=== PATIENT | female | born 1990 | race Caucasian/White ===

== ENCOUNTER 2016-06-05 19:35 | Emergency (ER) | payer SELFPAY ==
[~2016-06-05] VITALS: Ht 160 cm; Wt 131.5 kg
[~2016-06-05 19:35] MED LIST: AMPH20TA2 PO; AZIT-21 PO; CYCL10TA9 PO; FLC150T PO; GUAI118L10 PO; METH4TAB PO; NAPR500T PO; PRD20T PO; PRED10TA PO; RISP1TAB19 PO; SULF-222 PO; SULF1TAB38 PO
[2016-06-05] MEDS ORDERED: cefTRIAXone 1 GM (ROCEPHIN) VIAL IM ONE (19:45)
[2016-06-05] MEDS ORDERED: DEXAMETHASONE PF 10 MG/ML (DECADRON) VIAL IM ONE (19:45)
[2016-06-05] MEDS ORDERED: LIDOCAINE 1% INJ 20 ML (XYLOCAINE) VIAL INJ ONE (19:45)
[2016-06-05] MEDS ORDERED: D-ME118S33 PO (19:49)
[2016-06-05] MEDS ORDERED: CEPH-507 PO (19:49)
--- NOTE | 2016-06-05 19:50 | ED EENT ---
History of Present Illness General Chief Complaint: Oral/Throat Problems Stated Complaint: SORE THROAT W SWELLING CHILLS COUGH Source: patient Exam Limitations: no limitations History of Present Illness Time seen by provider: 19:47 Initial Comments To ER with a three-day history of nonproductive cough, sore throat, chills, earache, rhinorrhea. Severity: moderate Location: throat Associated Symptoms: cough, No fever Allergies and Home Medications Allergies Coded Allergies: No Known Drug Allergies (Unverified , 04/25/13) Home Medications Cyclobenzaprine HCl 10 Mg Tablet, 10 MG PO Q8H PRN for SPASMS, #10 Ref 0 Prescribed by: MAURA PANTOJA on 04/13/15 2348 Dextroamphetamine/Amphetamine 20 Mg Tablet, 10 MG PO BID, (Reported) Naproxen 500 Mg Tablet, 500 MG PO BID PRN for PAIN, #20 Ref 0 Prescribed by: MAURA PANTOJA on 04/13/15 2348 Prednisone 20 Mg Tab, 40 MG PO DAILY, #8 Ref 0 Prescribed by: MAURA PANTOJA on 04/13/15 2348 Risperidone 1 Mg Tablet, 1 MG PO HS, (Reported) Review of Systems Constitutional: see HPI, chills Eyes: No Symptoms Reported Ears: No Symptoms Reported Nose: see HPI, congestion Mouth: no symptoms reported Throat: see HPI, pain Respiratory: no symptoms reported Cardiovascular: no symptoms reported Past Tsjddor-Jctuzz-Xedzbt Hx Patient Social History Recent Foreign Travel: No Contact w/Someone Who Travel: No Surgeries HX Surgeries: Yes (PILONIDAL CYST) Respiratory Hx Respiratory Disorders: No Cardiovascular Hx Cardiac Disorders: No Neurological Hx Neurological Disorders: No Genitourinary Hx Genitourinary Disorders: No Gastrointestinal Hx Gastrointestinal Disorders: Yes Gastrointestinal Disorders: Gastroesophageal Reflux Musculoskeletal Hx Musculoskeletal Disorders: Yes Musculoskeletal Disorders: Arthritis, Chronic Back Pain Endocrine Hx Endocrine Disorders: No HEENT HX ENT Disorders: No Cancer Hx Cancer: No Psychosocial Hx Psychiatric Problems: Yes Behavioral Health Disorders: Anxiety, Bipolar Integumentary HX Skin/Integumentary Disorder: Yes (HYDROGENITIS SUPRATEVA) Skin/Integumentary Disorders: Eczema Family Medical History Significant Family History: No Pertinent Family Hx Physical Exam General Appearance: WD/WN, no apparent distress Eyes: bilateral eye EOMI, bilateral eye PERRL, bilateral eye normal inspection Ears: bilateral ear TM normal, bilateral ear auricle normal, bilateral ear canal normal Mouth/Throat: normal mouth inspection, tonsillar swelling Neck: lymphadenopathy (R), lymphadenopathy (L) Cardiovascular: regular rate, rhythm, no murmur Respiratory: normal breath sounds, no respiratory distress, no accessory muscle use, No rales, No rhonchi, No wheezing Neurologic/Psychiatric: alert, normal mood/affect, oriented x 3 Skin: normal color, warm/dry Progress/Results/Core Measures Results/Orders My Orders Orders - OLIVA AVILA APRN Ceftriaxone Injection (Rocephin Injectio (06/05/16 19:45) Lidocaine 1% Injection (Xylocaine 1% Inj (06/05/16 19:45) Dexamethasone Pf Injection (Decadron Pf (06/05/16 19:45) Departure Impression Impression: Primary Impression: Bronchitis Disposition: 01 HOME, SELF-CARE Condition: Stable Departure-Patient Inst. Decision time for Depature: 19:48 Referrals: [facility] (PCP/Family) Primary Care Physician Patient Instructions: Acute Bronchitis in Adults Add. Discharge Instructions: 1. Tylenol and Motrin for any fevers, chills or body aches 2. Drink plenty of fluids to stay hydrated 3. Antibiotics and cough medication as directed All discharge instructions reviewed with patient and/or family. Voiced understanding. Scripts Cephalexin (Keflex) 500 Mg Capsule 500 MG PO Q6H, #28 CAP Prov: OLIVA AVILA APRN 06/05/16 D-Methorphan Hb/P-Epd HCl/Bpm (Bromfed Dm Cough Syrup) 118 Ml Syrup 5 ML PO Q6H Y for COUGH, #120 ML Prov: OLIVA AVILA APRN 06/05/16 OLIVA AVILA APRN Jun 05, 2016 19:49
[2016-06-05 20:21] VITALS: BP 135/90
== END 2016-06-05 20:21 | disposition home or self-care (01) ==
LOC: EDUNIT# 19:35 → ER 19:39
DX: J40 Bronchitis, not specified as acute or chronic (principal)
CPT/HCPCS: 96372; 99282

== ENCOUNTER 2016-09-24 13:24 | Emergency (ER) | payer SELFPAY ==
[~2016-09-24] VITALS: Ht 160 cm; Wt 131.5 kg
[~2016-09-24 13:24] MED LIST changes: +CEPH-507 PO; +D-ME118S33 PO
--- OUTSIDE RECORDS SUMMARY | 2016-09-24 13:31 | XMS REPORT | Clinical Summary ---
Author Author [facility] Organization [facility] Address Unknown Phone Unavailable Care Team Providers Care Surg Nurse Name Role Phone PCP Unavailable Source Comments Some departments are not documenting in the electronic medical record. If you do not see the information that you expected, contact Release of Information in the Health Information Management department at [phone] for further assistance in locating additional records.[facility] Allergies No Known Allergies Current Medications Prescription Sig. Disp. Refills Start End Date Status Date metFORMIN-XR(+) 01/22/20 Active (GLUCOPHAGE XR) 500 mg 16 extended release tablet traZODone (DESYREL) 100 01/11/20 Active mg tablet 16 dextroamphetamine-ampheta 01/18/20 Active mine (ADDERALL) 20 mg [address] Take 1 Tab by mouth twice 60 Tab 3 03/02/19 Active (VOLTAREN) 75 mg tablet daily. Take with food. 17 Active Problems Problem Noted Date Synovial cyst of lumbar facet joint 03/04/2016 Chronic bilateral low back pain with bilateral sciatica 03/04/2016 Herniated nucleus pulposus, L4-5 03/04/2016 Family History Medical History Relation Name Comments Heart problem Father Arthritis Mother Back pain Mother Diabetes Mother Hypertension Mother Relation Name Status Comments Father Alive Mother Alive Social History Tobacco Use Types Packs/Day Years Used Date Former Smoker Quit: 01/06/2016 Alcohol Use Drinks/Week oz/Week Comments No 0 Standard 0.0 drinks or equivalent Sex Assigned at Date Recorded Not on file Last Filed Vital Signs Vital Sign Reading Time Taken Blood Pressure 135/70 03/02/2016 1:58 PM STAMPING DIE MAKER BENCH Pulse 104 03/02/2016 1:58 PM STAMPING DIE MAKER BENCH Temperature - - Respiratory Rate - - Oxygen Saturation - - Inhaled Oxygen - - Concentration Weight 120.2 kg (265 lb) 03/02/2016 1:58 PM STAMPING DIE MAKER BENCH Height 162.6 cm (5' 4") 03/02/2016 1:58 PM STAMPING DIE MAKER BENCH Body Mass Index 45.49 03/02/2016 1:58 PM STAMPING DIE MAKER BENCH Plan of Treatment Health Maintenance Due Date Last Done Comments PHYSICAL (COMPREHENSIVE) 1997 EXAM HPV VACCINES (#1) 2001 PERTUSSIS VACCINE 2001 TETANUS VACCINE 05/14/2007 CERVICAL CANCER SCREENING 05/14/2011 INFLUENZA VACCINE 10/14/2016 Results Not on filefrom Last 3 Months
[2016-09-24] MEDS ORDERED: LIDOCAINE 1% INJ 20 ML (XYLOCAINE) VIAL INJ STA (13:48)
[2016-09-24] MEDS ORDERED: RX-MUPIROCIN (BACTROBAN) 2% OINT 22 GM TUBE TOP STA (13:52)
--- NOTE | 2016-09-24 13:52 | ED Integumentary General ---
General Chief Complaint: Allergic Reaction Stated Complaint: POSS ALLERGIC REACTION HIVES/ITCHING Nursing Triage Note: PT C/O GIVES TO ARMS/LEGS ONSET LAST NIGHT. PT THINKS IT COULD POSSIBLE BE CAUSED BY NEW LAUNDRY SOAP Source: patient Exam Limitations: no limitations History of Present Illness Time seen by provider: 13:43 Initial Comments Here with complaint of hives that started last night worse today. 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 Reports that she is proximally 9 weeks . Also has a complaint of abscess wound to the abdomen just above the pubis area at midline. Reports that she has hidradenitis suppurativa. Reports that this wound has been going on for a little while and she was unable to pop it. States that she's been on a variety of antibiotics and those don't work and the only thing that works is drainage. Denies breathing problems or other concerns. Timing/Duration: yesterday Severity: moderate Location: torso Possible Cause: exposure to allergen Associated Symptoms: change in skin texture, hives, swelling/mass/lumps Allergies and Home Medications Allergies Coded Allergies: No Known Drug Allergies (Unverified , 04/25/13) Home Medications Cephalexin 500 Mg Capsule, 500 MG PO Q6H, #28 Prescribed by: OLIVA AVILA on 06/05/161948 Cyclobenzaprine HCl 10 Mg Tablet, 10 MG PO Q8H PRN for SPASMS, #10 Ref 0 Prescribed by: MAURA PANTOJA on 04/13/152347 D-Methorphan Hb/P-Epd HCl/Bpm 118 Ml Syrup, 5 ML PO Q6H PRN for COUGH, #120 Prescribed by: OLIVA AVILA on 06/05/161948 Dextroamphetamine/Amphetamine 20 Mg Tablet, 10 MG PO BID, (Reported) Naproxen 500 Mg Tablet, 500 MG PO BID PRN for PAIN, #20 Ref 0 Prescribed by: MAURA PANTOJA on 04/13/152347 Prednisone 20 Mg Tab, 40 MG PO DAILY, #8 Ref 0 Prescribed by: MAURA PANTOJA on 04/13/152347 Risperidone 1 Mg Tablet, 1 MG PO HS, (Reported) Constitutional: see HPI, No chills, No fever Respiratory: no symptoms reported Cardiovascular: no symptoms reported Gastrointestinal: no symptoms reported : Yes Skin: see HPI, lesions, pruritus, rash Psychiatric/Neurological: No Symptoms Reported Past Ynwohui-Ydqxdj-Yvdjaa Hx Patient Social History Alcohol Use: Denies Use Recreational Drug Use: No Smoking Status: Former Smoker Type Used: Cigarettes 2nd Hand Smoke Exposure: Yes Recent Foreign Travel: No Contact w/Someone Who Travel: No Recent Infectious Disease Expo: No Recent Hopitalizations: No Immunizations Up To Date Tetanus Booster (TDap): Less than 5yrs Seasonal Allergies Seasonal Allergies: No Surgeries HX Surgeries: Yes (PILONIDAL CYST) Respiratory Hx Respiratory Disorders: No Cardiovascular Hx Cardiac Disorders: No Neurological Hx Neurological Disorders: No Reproductive System : Yes Genitourinary Hx Genitourinary Disorders: No Gastrointestinal Hx Gastrointestinal Disorders: Yes Gastrointestinal Disorders: Gastroesophageal Reflux Musculoskeletal Hx Musculoskeletal Disorders: Yes Musculoskeletal Disorders: Arthritis, Chronic Back Pain Endocrine Hx Endocrine Disorders: No HEENT HX ENT Disorders: No Cancer Hx Cancer: No Psychosocial Hx Psychiatric Problems: Yes Behavioral Health Disorders: Anxiety, Bipolar Integumentary HX Skin/Integumentary Disorder: Yes (HYDROGENITIS SUPRATEVA) Skin/Integumentary Disorders: Eczema Reviewed Nursing Assessment Reviewed/Agree w Nursing PMH: Yes Family Medical History Significant Family History: No Pertinent Family Hx Physical Exam Vital Signs Vital Sign - Last 12Hours 09/24/16 13:35 Temp 98.0 Pulse 112 Resp 20 B/P (MAP) 126/114 Pulse Ox 94 O2 Delivery Room Air Capillary Refill : Less Than 3 Seconds General Appearance: WD/WN, no apparent distress, obese Cardiovascular: regular rate, rhythm, no murmur Respiratory: lungs clear, normal breath sounds Gastrointestinal: non tender, soft Skin: warm/dry, rash (hives noted to the area of the torso and trunk especially at the shoulders and waistline.), other (multiple scars on the scan especially at the area of the skin folds of the pannus and axilla. The central pannus area in the suprapubic region has a small abscess of approximately 1 x 2 cm with central fluctuance and some surrounding erythema.) Skin Problem Character: abscess, erythema I&D : Site: suprapubic Blade Size: 11 I & D Procedure: betadine prep, Wound Packing Packing/Drain: Plain Packing 1/2 Progress Moderate amount of purulent drainage obtained from wound after incision. Wound culture obtained. Loculations broken with Elaine's. Packed with half-inch plain. Cover with dressing. Tolerated procedure well with no complications. Progress/Results/Core Measures Results/Orders My Orders Orders - TONYA AMARAL MD Diphenhydramine Tablet (Benadryl Tablet) (09/24/16 14:00) Lidocaine 1% Injection (Xylocaine 1% Inj (09/24/16 13:48) Rx-Mupirocin 2% Oint (Rx-Bactroban) (09/24/16 13:52) Wound Culture (09/24/16 14:58) Medications Given in ED Current Medications Medications Dose Ordered Sig/Terell Route Start Time Stop Time Status Last Admin Dose Admin Diphenhydramine HCl 50 mg ONCE ONCE PO 09/24/16 14:00 09/24/16 14:01 DC 09/24/16 13:52 50 MG Vital Signs/I&O Vital Sign - Last 12Hours 09/24/16 13:35 Temp 98.0 Pulse 112 Resp 20 B/P (MAP) 126/114 Pulse Ox 94 O2 Delivery Room Air Blood Pressure Mean: 118 Progress Note : Progress Note Seen and evaluated. Benadryl 50 mg by mouth. I&D wound on central lower pannus area at suprapubic region. Wound culture sent. Improved after Benadryl. Discharged home with return precautions. Patient verbalize understanding instructions and agreement with plan. Antibiotic ointment and dressing placed over wound. No antibiotics do to history of . We will await cultures as indicated. Departure Impression Impression: Primary Impression: Acute urticaria Additional Impression: Abscess Disposition: 01 HOME, SELF-CARE Condition: Improved Departure-Patient Inst. Decision time for Depature: 15:02 Referrals: [facility] (PCP/Family) Primary Care Physician Patient Instructions: Abscess Incision and Drainage (DC), Skin Rash (DC) Add. Discharge Instructions: All discharge instructions reviewed with patient and/or family. Voiced understanding. Keep packing in place for 2 days and then return to have it removed or you may remove at home. Follow up with your DrJacqueline in a few days for recheck. Return for worse pain, swelling, redness, weakness, breathing problems, fever or other concerns as needed. You should use the antibiotic ointment and dressing over wound or similar wounds as instructed. You may take Benadryl 25 mg every 6 hours as needed for itching. TONYA AMARAL MD Sep 24, 2016 13:52
[2016-09-24] MEDS ORDERED: diphenhydrAMINE 25 MG TAB (BENADRYL) PO ONE (14:00)
[2016-09-24 15:09] VITALS: BP 126/114
== END 2016-09-24 15:09 | disposition home or self-care (01) ==
LOC: EDUNIT# 13:24 → ER 13:27
DX: L50.9 Urticaria, unspecified (principal); L02.211 Cutaneous abscess of abdominal wall; K21.9 Gastro-esophageal reflux disease without esophagitis; M19.90 Unspecified osteoarthritis, unspecified site; F41.9 Anxiety disorder, unspecified; F31.9 Bipolar disorder, unspecified; Z87.891 Personal history of nicotine dependence
CPT/HCPCS: 87070; 87205

== ENCOUNTER 2016-09-26 08:00 | Emergency (ER) | payer SELFPAY ==
[~2016-09-26] VITALS: Ht 160 cm; Wt 131.5 kg
--- OUTSIDE RECORDS SUMMARY | 2016-09-26 08:07 | XMS REPORT | Clinical Summary ---
Author Author [facility] Organization [facility] Address Unknown Phone Unavailable Care Team Providers Care Plant Propagator Name Role Phone PCP Unavailable Source Comments Some departments are not documenting in the electronic medical record. If you do not see the information that you expected, contact Release of Information in the Health Information Management department at [phone] for further assistance in locating additional records.[facility] Allergies No Known Allergies Current Medications [...] Taken Blood Pressure 135/70 03/02/2016 1:58 PM BLISTER PACKAGING MACHINE OPERATOR Pulse 104 03/02/2016 1:58 PM BLISTER PACKAGING MACHINE OPERATOR Temperature - - Respiratory Rate - - Oxygen Saturation - - Inhaled Oxygen - - Concentration Weight 120.2 kg (265 lb) 03/02/2016 1:58 PM BLISTER PACKAGING MACHINE OPERATOR Height 162.6 cm (5' 4") 03/02/2016 1:58 PM BLISTER PACKAGING MACHINE OPERATOR Body Mass Index 45.49 03/02/2016 1:58 PM BLISTER PACKAGING MACHINE OPERATOR Plan of Treatment Health Maintenance Due Date Last Done Comments PHYSICAL (COMPREHENSIVE) 1997 EXAM HPV VACCINES (#1) 2001 PERTUSSIS VACCINE 2001 TETANUS VACCINE 05/14/2007 CERVICAL CANCER SCREENING 05/14/2011 INFLUENZA VACCINE 10/14/2016 Results Not on filefrom Last 3 Months
[2016-09-26] MEDS ORDERED: FAMO-119 PO (08:18)
[2016-09-26] MEDS ORDERED: PRD10T PO (08:20)
--- NOTE | 2016-09-26 08:20 | ED Integumentary General ---
General Chief Complaint: Allergic Reaction Stated Complaint: ALLERGIC REACTION Nursing Triage Note: AMBULATED TO [place] [id number] WITH COMPLAINTS OF HIVES STARTING MONDAY. WAS SEEN HERE SAT AND HAS BEEN TAKING BENADRYL AND PEPCID. LAST DOSE OF BENADRYL AT 2200 LAST NOC. STATES SHE IS APPX 9 WEEKS GESTATION. Source: patient History of Present Illness Time seen by provider: 08:07 Initial Comments PT STATES SHE HAS HAD HIVES SINCE MONDAY EVENING SEEN IN ER ON MONDAY FOR HIVES, BUT ALSO HAD ABSCESS ON LOWER ABDOMEN THAT WAS I&D'D NO ANTIBIOTICS PT STATES HIVES ARE WORSE TODAY, AND ARE NOW ON HANDS AND FACE AND HANDS ARE SWOLLEN TODAY NO SWELLING OF TONGUE OR THROAT, NO SHORTNESS OF BREATH OR WHEEZING OR DIFFICULTY SWALLOWING. NO HISTORY OF SIMILAR PT DENIES ANY NEW FOODS, PRODUCTS, MEDICATIONS OR EXPOSURES HAD BENADRYL 50 MG AT 2200 LAST PM PT IS 7-9 WEEKS LMP 08/01/16 PT HAS BEEN ON TUMS AND GUMMY VITAMINS FOR A FEW WEEKS HAS FIRST OB APPOINTMENT TOMORROW AT [facility] PCP: [facility] Allergies and Home Medications Allergies Coded Allergies: No Known Drug Allergies (Unverified , 04/25/13) Home Medications Dextroamphetamine/Amphetamine 20 Mg Tablet, 10 MG PO BID, (Reported) Famotidine 20 Mg Tablet, 20 MG PO, (Reported) Prednisone 10 Mg Tab, 40 MG PO DAILY, #12 Prescribed by: KIMMIE BANKS on 09/26/16 0820 Constitutional: no symptoms reported EENTM: no symptoms reported Respiratory: no symptoms reported Cardiovascular: no symptoms reported Gastrointestinal: no symptoms reported Genitourinary: no symptoms reported : Yes LMP: Aug 01, 2016 Musculoskeletal: no symptoms reported Skin: see HPI Psychiatric/Neurological: No Symptoms Reported Endocrine: No Symptoms Reported Hematologic/Lymphatic: No Symptoms Reported Past Iafntxa-Wsufll-Iuwquh Hx Patient Social History Alcohol Use: Denies Use Recreational Drug Use: No Smoking Status: Former Smoker Type Used: Cigarettes 2nd Hand Smoke Exposure: Yes Recent Foreign Travel: No Contact w/Someone Who Travel: No Recent Infectious Disease Expo: No Recent Hopitalizations: Yes Immunizations Up To Date Tetanus Booster (TDap): Less than 5yrs Seasonal Allergies Seasonal Allergies: No Surgeries HX Surgeries: Yes (PILONIDAL CYST; ABSCESS I&D'S) Respiratory Hx Respiratory Disorders: No Cardiovascular Hx Cardiac Disorders: No Neurological Hx Neurological Disorders: No Reproductive System : Yes Female Reproductive Disorders: Denies Genitourinary Hx Genitourinary Disorders: No Gastrointestinal Hx Gastrointestinal Disorders: Yes Gastrointestinal Disorders: Gastroesophageal Reflux Musculoskeletal Hx Musculoskeletal Disorders: Yes Musculoskeletal Disorders: Arthritis, Chronic Back Pain Endocrine Hx Endocrine Disorders: No HEENT HX ENT Disorders: No Cancer Hx Cancer: No Psychosocial Hx Psychiatric Problems: Yes Behavioral Health Disorders: Anxiety, Bipolar Integumentary HX Skin/Integumentary Disorder: Yes (HYDRADENITIS SUPPURATIVA/ MULTIPLE ABSCESSES) Skin/Integumentary Disorders: Eczema Physical Exam Vital Signs Vital Sign - Last 12Hours 09/26/16 08:08 Temp 98.0 Pulse 115 Resp 18 B/P (MAP) 138/82 Pulse Ox 97 Capillary Refill : Less Than 3 Seconds General Appearance: WD/WN, no apparent distress, obese HEENT: PERRL/EOMI, normal ENT inspection, pharynx normal, other (SLIGHT SWELLING TO LOWER LIP, BUT NO INTRA-ORAL SWELLING) Neck: non-tender, full range of motion, supple Cardiovascular: regular rate, rhythm, no murmur Respiratory: normal breath sounds, no respiratory distress, no accessory muscle use Gastrointestinal: non tender, soft Extremities: other (MILD SWELLING TO HANDS, BUT NO SWELLING TO FEET) Neurologic/Psychiatric: salesperson men's furnishings II-XII nml as tested, no motor/sensory deficits, alert, normal mood/affect, oriented x 3 Skin: normal color, warm/dry, rash (DIFFUSE HIVES, INCLUDING PALMS AND SCALP AND FACE. SOLES SPARED. SLIGHT SWELLING TO LOWER LIP AND HANDS. NO SWELLING TO FEET) Progress/Results/Core Measures Results/Orders My Orders Orders - KIMMIE BANKS DO Methylprednisolone Sod Succ (Solu-Medrol (09/26/16 08:30) Vital Signs/I&O Vital Sign - Last 12Hours 09/26/16 08:08 Temp 98.0 Pulse 115 Resp 18 B/P (MAP) 138/82 Pulse Ox 97 Blood Pressure Mean: 100 Departure Impression Impression: Primary Impression: Urticaria of unknown origin Disposition: 01 HOME, SELF-CARE Condition: Stable Departure-Patient Inst. Referrals: [facility] (PCP/Family) Primary Care Physician Patient Instructions: Hives (DC) Add. Discharge Instructions: NO NEW FOODS, MEDICATIONS, PRODUCTS, ETC. BENADRYL 50 MG EVERY 4 HOURS NEEDED FOR RASH AND ITCHING KEEP YOUR APPOINTMENT TOMORROW AT [facility] All discharge instructions reviewed with patient and/or family. Voiced understanding. Scripts Prednisone (Prednisone) 10 Mg Tab 40 MG PO DAILY, #12 TAB Prov: KIMMIE BANKS DO 09/26/16 KIMMIE BANKS DO Sep 26, 2016 08:20
[2016-09-26 08:27] VITALS: BP 138/82
[2016-09-26] MEDS ORDERED: methylPREDNISolone 125 MG (Solu-MEDROL) VIAL IM ONE (08:30)
== END 2016-09-26 08:27 | disposition home or self-care (01) ==
LOC: EDUNIT# 08:00 → ER 08:03
DX: O99.72 Diseases of the skin and subcutaneous tissue complicating childbirth (principal); L50.9 Urticaria, unspecified; O99.611 Diseases of the digestive system complicating pregnancy, first trimester; K21.9 Gastro-esophageal reflux disease without esophagitis; O99.89 Other specified diseases and conditions complicating pregnancy, childbirth and the puerperium; M19.90 Unspecified osteoarthritis, unspecified site; O99.341 Other mental disorders complicating pregnancy, first trimester; F41.9 Anxiety disorder, unspecified; F31.9 Bipolar disorder, unspecified; Z3A.09 9 weeks gestation of pregnancy; Z87.891 Personal history of nicotine dependence
CPT/HCPCS: 96372; 99284

== ENCOUNTER → 2016-10-10 | Outpatient (CLI) | payer MEDICAID ==
[~2016-10-10] MED LIST changes: +FAMO-119 PO; +PRD10T PO
--- NOTE | 2016-10-10 13:27 | Diagnostic Imaging Report ---
PROCEDURE: US OB SINGLE FETUS <14 WKS. TECHNIQUE: Multiple real-time grayscale images were obtained over the gravid uterus in various projections. INDICATION: Size and dates. FINDINGS: There is a single living intrauterine . Waldron-rump length is 2.3 cm. This correlates with gestational age of 9 weeks 1 day. The heart rate is 156 beats per minute. Cervical length is 2.37 cm. Neither ovary was visualized. IMPRESSION: Single living intrauterine with sonographically estimated gestational age of 9 weeks 1 day and estimated date of confinement of 05/14/2017. Dictated by: Dictated on workstation # [id number]
== END ==
LOC: RAD 09:44
PROVIDERS: ATTEND Family Medicine
DX: Z36 Encounter for antenatal screening of mother (principal); Z3A.09 9 weeks gestation of pregnancy
CPT/HCPCS: 76801

== ENCOUNTER 2016-11-27 23:10 | Emergency (ER) | payer MEDICAID ==
[~2016-11-27] VITALS: Ht 162.6 cm; Wt 133.4 kg
--- OUTSIDE RECORDS SUMMARY | 2016-11-27 23:18 | XMS REPORT ---
Author Author RAI Harper Organization [facility] Address Unknown Care Team Providers Care Automatic Furnace Operator Name Role Phone RAI Harper Unavailable PROBLEMS Type Condition ICD9-CM Code LKL33-AF Code Onset Dates Condition Status SNOMED Code Problem Elevated fasting glucose R73.01 Active 422791969 Problem Lumbago with sciatica, left side M54.42 Active 870791119 Problem Hypertriglyceridemia E78.1 Active 663541551 Problem Obesity affecting in first trimester O99.211 Active 582931588773 Problem Metabolic syndrome E88.81 Active 586223168 Problem Other chronic pain G89.29 Active 55261576 Problem Lumbago with sciatica, right side M54.41 Active 132477915 Problem Attention deficit hyperactivity disorder F90.9 Active 679502299 Problem Suppurative hidradenitis L73.2 Active 37352688 Problem Bipolar disorder, unspecified F31.9 Active 34604936 Problem BMI 40.0-44.9, adult Z68.41 Active 693474229 Problem Irregular menses N92.6 Active 50289227 Problem Anxiety disorder, unspecified F41.9 Active 832741221 Problem Oral contraceptive pill surveillance Z30.41 Active [id number] ALLERGIES No Information SOCIAL HISTORY Never Assessed PLAN OF CARE VITAL SIGNS MEDICATIONS Medication Instructions Dosage Frequency Start Date End Date Duration Status Adderall 20 mg Orally twice a day 1 tablet 12h Apr, 28 days Active RESULTS No Results PROCEDURES No Known procedures IMMUNIZATIONS No Known Immunizations MEDICAL (GENERAL) HISTORY Type Description Date Medical History Hidradenitis Supprativa Medical History Bipolar Disorder Medical History ADHD Surgical History pilonidal cyst removal tailbone Hospitalization History Dehydration & concussion 07/23/2016
--- OUTSIDE RECORDS SUMMARY | 2016-11-27 23:18 | XMS REPORT | Clinical Summary ---
Author Author [facility] Organization [facility] Address Unknown Phone Unavailable Care Team Providers Care Dye Automation Operator Name Role Phone PCP Unavailable Source Comments Some departments are not documenting in the electronic medical record. If you do not see the information that you expected, contact Release of Information in the Health Information Management department at [phone] for further assistance in locating additional records.[facility] Allergies No Known Allergies Current Medications [...] Taken Blood Pressure 135/70 03/02/2016 1:58 PM MARKETING REGIONAL CONSULTANT Pulse 104 03/02/2016 1:58 PM MARKETING REGIONAL CONSULTANT Temperature - - Respiratory Rate - - Oxygen Saturation - - Inhaled Oxygen - - Concentration Weight 120.2 kg (265 lb) 03/02/2016 1:58 PM MARKETING REGIONAL CONSULTANT Height 162.6 cm (5' 4") 03/02/2016 1:58 PM MARKETING REGIONAL CONSULTANT Body Mass Index 45.49 03/02/2016 1:58 PM MARKETING REGIONAL CONSULTANT Plan of Treatment Health Maintenance Due Date Last Done Comments PHYSICAL (COMPREHENSIVE) 1997 EXAM HPV VACCINES (1 of 3 - 2001 Female 3 Dose Series) PERTUSSIS VACCINE 2001 TETANUS VACCINE 05/14/2007 CERVICAL CANCER SCREENING 05/14/2011 INFLUENZA VACCINE 09/13/2016 Results Not on filefrom Last 3 Months
--- OUTSIDE RECORDS SUMMARY | 2016-11-27 23:18 | XMS REPORT ---
Author Author RAI DE JESUS [facility] Address Unknown Care Team Providers Care Hunting Sales Associate Name Role Phone LIZARAI Unavailable PROBLEMS Type Condition ICD9-CM Code [id number] Code Onset Dates Condition Status SNOMED Code Problem Oral contraceptive pill surveillance Z30.41 Active 619970393965001 Problem Hypertriglyceridemia E78.1 Active 432340763 Problem Elevated fasting glucose R73.01 Active 472500396 Problem Anxiety disorder, unspecified F41.9 Active 721279729 Problem Bipolar disorder, unspecified F31.9 Active 20203453 Problem BMI 40.0-44.9, adult Z68.41 Active 899372501 Problem Irregular menses N92.6 Active 16986970 Problem Metabolic syndrome E88.81 Active 240607425 Problem Attention deficit hyperactivity disorder F90.9 Active 979416456 Problem Lumbago with sciatica, right side M54.41 Active 405576926 Problem Lumbago with sciatica, left side M54.42 Active 825273028 Problem Suppurative hidradenitis L73.2 Active 39573076 Problem Other chronic pain G89.29 Active 25179293 ALLERGIES Substance Reaction Event Type Date Status Bees anaphylaxis Non Drug Allergy Feb, Active SOCIAL HISTORY No smoking Hx information available PLAN OF CARE Activity Details Follow Up 3 Months Reason: VITAL SIGNS Height 64 in 2016-02-17 Weight 274.9 lbs 2016-02-17 Heart Rate 92 bpm 2016-02-17 Respiratory Rate 20 2016-02-17 BMI 47.18 kg/m2 2016-02-17 Blood pressure systolic 104 mmHg 2016-02-17 Blood pressure diastolic 78 mmHg 2016-02-17 MEDICATIONS Medication Instructions Dosage Frequency Start Date End Date Duration Status Adderall 20 MG Orally twice a day 1 tablet 12h Feb, 30 days Active Trazodone HCl 100 MG Orally voucher Once a day 1 tablet at bedtime 24h Dec, 30 days Active Trileptal 300 MG Orally twice a day 1 tablet 12h Dec, Active MetFORMIN HCl ER 500 MG Orally Once a day 1 tablet with evening meal 24h Jan, 30 day(s) Active RESULTS No Results PROCEDURES Procedure Date Ordered Related Diagnosis Body Site Office Visit, Est Pt., Level 3 Feb 17, 2016 IMMUNIZATIONS No Known Immunizations
--- OUTSIDE RECORDS SUMMARY | 2016-11-27 23:19 | XMS REPORT ---
Author Author VIVIAN GASTON Organization [facility] Address [address] [place] [address] Care Team Providers Care Legal Document Specialist Name Role Phone GASTONVIVIAN Austin Unavailable PROBLEMS Type Condition ICD9-CM Code [id number] Code Onset Dates Condition Status SNOMED Code Problem Elevated fasting glucose R73.01 Active 110634150 Problem Lumbago with sciatica, left side M54.42 Active 565630078 Problem Hypertriglyceridemia E78.1 Active 154261203 Problem Obesity affecting in first trimester O99.211 Active 216827852282 Problem Metabolic syndrome E88.81 Active 618264658 Problem Other chronic pain G89.29 Active 94805376 Problem Lumbago with sciatica, right side M54.41 Active 451316589 Problem Attention deficit hyperactivity disorder F90.9 Active 917412035 Problem Suppurative hidradenitis L73.2 Active 24226545 Problem Bipolar disorder, unspecified F31.9 Active 80254166 Problem BMI 40.0-44.9, adult Z68.41 Active 594482543 Problem Irregular menses N92.6 Active 15410355 Problem Anxiety disorder, unspecified F41.9 Active 105274408 Problem Oral contraceptive pill surveillance Z30.41 Active 697080950492291 ALLERGIES Substance Reaction Event Type Date Status Bees anaphylaxis Non Drug Allergy Mar, Active SOCIAL HISTORY Never Assessed PLAN OF CARE Activity Details Follow Up prn Reason: VITAL SIGNS Height 64 in 2016-03-29 Weight 279.0 lbs 2016-03-29 Temperature 97.8 degrees Fahrenheit 2016-03-29 Heart Rate 86 bpm 2016-03-29 Respiratory Rate 18 2016-03-29 BMI 47.89 kg/m2 2016-03-29 Blood pressure systolic 110 mmHg 2016-03-29 Blood pressure diastolic 76 mmHg 2016-03-29 MEDICATIONS Medication Instructions Dosage Frequency Start Date End Date Duration Status Trazodone HCl 100 MG Orally voucher Once a day 1 tablet at bedtime 24h Dec, 30 days Active Trileptal 300 MG Orally twice a day 1 tablet 12h Dec, Active Clindamycin HCl 300 MG Orally every 8 hrs 1 capsule 8h 14 Mar, 2016Mar 5 day(s) Active Adderall 20 mg Orally twice a day 1 tablet 12h 08 Mar, 2016 28 days Active MetFORMIN HCl ER 500 MG Orally Once a day 1 tablet with evening meal 24h Jan, 30 day(s) Active RESULTS Name Result Date Reference Range CULTURE, ANAEROBIC AND AEROBIC 2016-03-29 Anaerobic Culture Final report Aerobic Culture Final report Result 1 Result 1 Mixed skin sunshine GC/CHLAM URINE (STATE) 2016-03-29 CHLAMYDIA negative GC negative HEP C ANTIBODY (STATE) 2016-03-29 RESULTS SYPHILIS (STATE) 2016-03-29 HIV (STATE) 2016-03-29 HEP B SURFACE ANTIGEN (STATE) 2016-03-29 HEP B ANTIBODY non reactive HEP B ANTIBODY (RML) HEP B ANTIBODY (STATE) PROCEDURES Procedure Date Ordered Result Body Site I & D SIMPLE ABSCESS 2016-03-29 N/A No Charge Mar 29, 2016 DRAINAGE OF SKIN ABSCESS Mar 29, 2016 CULTURE, BACTERIA, OTHER Mar 29, 2016 CULTURE BACTERIA ANAEROBIC Mar 29, 2016 VENIPUNCT, ROUTINE* Mar 29, 2016 IMMUNIZATIONS No Known Immunizations MEDICAL (GENERAL) HISTORY Type Description Date Medical History Hidradenitis Supprativa Medical History Bipolar Disorder Medical History ADHD Surgical History pilonidal cyst removal tailbone Hospitalization History Dehydration & concussion 07/23/2016
--- OUTSIDE RECORDS SUMMARY | 2016-11-27 23:19 | XMS REPORT ---
Author Author RAI Harper Organization [facility] Address Unknown Care Team Providers Care Finisher Merchant Products Name Role Phone RAI Harper Unavailable PROBLEMS Type Condition ICD9-CM Code [id number] Code Onset Dates Condition Status SNOMED Code Problem Elevated fasting glucose R73.01 Active 106902741 Problem Lumbago with sciatica, left side M54.42 Active 445804851 Problem Hypertriglyceridemia E78.1 Active 894357233 Problem Obesity affecting in first trimester O99.211 Active 829067354991 Problem Metabolic syndrome E88.81 Active 434262209 Problem Other chronic pain G89.29 Active 13046693 Problem Lumbago with sciatica, right side M54.41 Active 688067276 Problem Attention deficit hyperactivity disorder F90.9 Active 731614395 Problem Suppurative hidradenitis L73.2 Active 85308890 Problem Bipolar disorder, unspecified F31.9 Active 36355089 Problem BMI 40.0-44.9, adult Z68.41 Active 600366312 Problem Irregular menses N92.6 Active 99278429 Problem Anxiety disorder, unspecified F41.9 Active 758438405 Problem Oral contraceptive pill surveillance Z30.41 Active 766619271889685 ALLERGIES Unknown Allergies SOCIAL HISTORY No smoking Hx information available PLAN OF CARE VITAL SIGNS MEDICATIONS Medication Instructions Dosage Frequency Start Date End Date Duration Status Adderall 20 mg Orally twice a day 1 tablet 12h 08 Mar, 2016 28 days Active RESULTS No Results PROCEDURES No Known procedures IMMUNIZATIONS No Known Immunizations
--- NOTE | 2016-11-27 23:33 | ED Cough/URI ---
General Chief Complaint: Cough/Cold/Flu Symptoms Stated Complaint: VOMITNG COUGH SKIN FEELS HOT CHILLS 16 WK PG Nursing Triage Note: states since monday had runny nose, congestion, states last night cough with vomitting and headache. Source: patient History of Present Illness Time seen by provider: 23:15 Initial Comments C/O COLD SYMPTOMS SINCE Monday11/25/16 C/O CLEAR TO GREEN NASAL DRAINAGE C/O COUGH WITH VOMITING SECONDARY TO GAGGING WITH COUGHING NO FEVER C/O HEADACHE FROM COUGHING NO CHEST PAIN OR SHORTNESS OF BREATH NO KNOWN SICK CONTACTS PT STATES SHE IS 16 WEEKS --HAS NOT TAKEN ANYTHING FOR SYMPTOMS HAS NOT HAD A FLU SHOT YET PCP: DR. HUNT/[facility] Allergies and Home Medications Allergies Coded Allergies: No Known Drug Allergies (Unverified , 04/25/13) Home Medications Dextroamphetamine/Amphetamine 20 Mg Tablet, 10 MG PO BID, (Reported) Famotidine 20 Mg Tablet, 20 MG PO, (Reported) Prednisone 10 Mg Tab, 40 MG PO DAILY, #12 Prescribed by: KIMMIE BANKS on 09/26/16 0820 Constitutional: no symptoms reported EENTM: see HPI, nose congestion, No ear pain, No throat pain Respiratory: see HPI, cough Cardiovascular: no symptoms reported Gastrointestinal: see HPI, No abdominal pain, No nausea, vomiting (SECONDARY TO COUGH) Genitourinary: no symptoms reported : Yes Musculoskeletal: no symptoms reported Skin: no symptoms reported Psychiatric/Neurological: See HPI Hematologic/Lymphatic: No Symptoms Reported Immunological/Allergic: no symptoms reported Past Wsjzcai-Gubsdd-Hkmnlw Hx Patient Social History Alcohol Use: Denies Use Recreational Drug Use: No Smoking Status: Former Smoker (1 PPD, QUIT 12/2015) Type Used: Cigarettes Former Smoker, Quit: Dec 15, 2015 2nd Hand Smoke Exposure: Yes Recent Foreign Travel: No Contact w/Someone Who Travel: No Recent Infectious Disease Expo: No Recent Hopitalizations: No Immunizations Up To Date Tetanus Booster (TDap): Less than 5yrs Seasonal Allergies Seasonal Allergies: No Surgeries History of Surgeries: Yes (PILONIDAL CYST; ABSCESS I&D'S ) Respiratory History of Respiratory Disorde: No Cardiovascular History of Cardiac Disorders: No Neurological History of Neurological Disord: No Reproductive System : Yes (16 WEEKS) Female Reproductive Disorders: Denies Genitourinary History of Genitourinary Disor: No Gastrointestinal History of Gastrointestinal Di: Yes Gastrointestinal Disorders: Gastroesophageal Reflux Musculoskeletal History of Musculoskeletal Dis: Yes Musculoskeletal Disorders: Arthritis, Chronic Back Pain Endocrine History of Endocrine Disorders: No HEENT History of HEENT Disorders: No Cancer History of Cancer: No Psychosocial History of Psychiatric Problem: Yes Behavioral Health Disorders: ADD/ADHD, Anxiety, Bipolar Integumentary History of Skin or Integumenta: Yes (HYDRADENITIS SUPPURATIVA; ABSCESSES) Skin/Integumentary Disorders: Eczema Blood Transfusions History of Blood Disorders: No Physical Exam Vital Signs Vital Sign - Last 12Hours 11/27/16 23:19 Temp 99.1 Pulse 96 Resp 20 B/P (MAP) 112/72 O2 Delivery Room Air Capillary Refill : Less Than 3 Seconds General Appearance: WD/WN, no apparent distress, obese (MORBIDLY) HEENT: PERRL/EOMI, No photophobia, No pharyngeal erythema, other (RIGHT TM INFLAMED; NASAL MUCOSAL EDEMA WITH CLEAR RHINORRHEA; NO SINUS TENDERNESS; MULTIPLE MISSING TEETH, INCLUDING TOP FRONT TEETH) Neck: non-tender, full range of motion, supple, normal inspection Respiratory: normal breath sounds, no respiratory distress, no accessory muscle use Cardiovascular: regular rate, rhythm, no edema, no murmur Gastrointestinal: normal bowel sounds, soft Extremities: normal inspection, no pedal edema Neurologic/Psychiatric: senior analyst developer II-XII nml as tested, no motor/sensory deficits, alert, normal mood/affect, oriented x 3 Skin: normal color, warm/dry, tattoos/piercings (MULTIPLE TATTOOS) Progress/Results/Core Measures Results/Orders Micro Results Microbiology 11/27/16 Influenza Types A,B Antigen (TAMIR) - Final, Complete My Orders Orders - KIMMIE BANKS DO Influenza A And B Antigens (11/27/16 23:19) Heart Tones (11/27/16 23:27) Vital Signs/I&O Vital Sign - Last 12Hours 11/27/16 23:19 Temp 99.1 Pulse 96 Resp 20 B/P (MAP) 112/72 O2 Delivery Room Air Blood Pressure Mean: 85 Progress Note : Progress Note NO COUGH NOTED AT ANY TIME DURING ER STAY FHR 159 Departure Impression Impression: Primary Impression: Upper respiratory infection Additional Impressions: Right otitis media 16 weeks gestation of Disposition: 01 HOME, SELF-CARE Condition: Stable Departure-Patient Inst. Referrals: EVERARDO HUNT MD (PCP) Primary Care Physician [facility] (Family) Primary Care Physician Patient Instructions: Bacterial Upper Respiratory Infection, Adult (DC), Ear Infections (Otitis Media) (DC) Add. Discharge Instructions: LOTS OF CLEAR LIQUIDS TYLENOL NEEDED FOR PAIN OR FEVER FOLLOW UP WITH YOUR DR IN 3-4 DAYS IF NO BETTER All discharge instructions reviewed with patient and/or family. Voiced understanding. Scripts Fluticasone Propionate (Flonase Allergy Relief) 9.9 Ml [place].susp 2 SPRAYS NS BID, #1 SPRAY Prov: KIMMIE BANKS DO 11/27/16 Amoxicillin/Potassium Clav (Augmentin 875-125 Tablet) 1 Each Tablet 1 EACH PO BID for INFECTION, #20 TAB Prov: KIMMIE BANKS DO 11/27/16 KIMMIE BANKS DO Nov 27, 2016 23:33
[2016-11-27] MEDS ORDERED: AMOX-358 PO (23:58)
[2016-11-27] MEDS ORDERED: FLUT9.9S NS (23:58)
[2016-11-28] MEDS ORDERED: AUGMENTIN 875 MG TAB (AMOXICILLIN/CLAVULANATE) PO SCH
[2016-11-28 00:03] VITALS: BP 112/72
== END 2016-11-28 00:03 | disposition home or self-care (01) ==
LOC: EDUNIT# 23:10 → ER 23:13
DX: O99.512 Diseases of the respiratory system complicating pregnancy, second trimester (principal); J06.9 Acute upper respiratory infection, unspecified; O99.89 Other specified diseases and conditions complicating pregnancy, childbirth and the puerperium; H66.91 Otitis media, unspecified, right ear; O99.612 Diseases of the digestive system complicating pregnancy, second trimester; K21.9 Gastro-esophageal reflux disease without esophagitis; O99.342 Other mental disorders complicating pregnancy, second trimester; F90.9 Attention-deficit hyperactivity disorder, unspecified type; F41.9 Anxiety disorder, unspecified; F31.9 Bipolar disorder, unspecified; Z3A.16 16 weeks gestation of pregnancy; Z87.891 Personal history of nicotine dependence
CPT/HCPCS: 87804; 99283

== ENCOUNTER → 2017-01-02 | Outpatient (CLI) | payer MEDICAID ==
[~2017-01-02] MED LIST changes: +AMOX-358 PO; +FLUT9.9S NS
--- NOTE | 2017-01-02 11:38 | Diagnostic Imaging Report ---
EXAMINATION: Right breast ultrasound. INDICATION: Right breast lump. INDICATION: Palpable lump. FINDINGS: The 4 quadrants and retroareolar region of the right breast were scanned with a lesion seen at the 3 o'clock zone 12 cm from the nipple where the patient is feeling the lump and it appears to correlate with the 0.9 x 0.3 x 0.9 cm nodule with peripheral hypoechogenicity and hyperechoic center, likely an intramammary lymph node. No other lesions are seen. IMPRESSION: The palpable lump appears to correlate with a small intramammary lymph node less than 1 cm in size, probably benign, at the 3 o'clock zone 12 cm from the nipple. Clinical followup is recommended. ACR BI-RADS Category 2: Benign findings. Result letter will be mailed to the patient. Note: At least 10% of breast cancer is not imaged by mammography. Dictated by: Dictated on workstation # [id number]
== END ==
LOC: RAD 10:16
PROVIDERS: ATTEND Family Medicine
DX: N63.10 Unspecified lump in the right breast, unspecified quadrant (principal)
CPT/HCPCS: 76641

== ENCOUNTER → 2017-01-03 | Outpatient (CLI) | payer MEDICAID ==
--- NOTE | 2017-01-03 17:53 | Diagnostic Imaging Report ---
INDICATION: survey. TECHNIQUE: Multiple real-time grayscale images were obtained over the gravid uterus. COMPARISON: None FINDINGS: heart rate is 158 beats per minute. The placenta is posterior. No placenta previa. The cervix is 3.6 cm in length and is closed. The maternal adnexa are obscured by bowel gas and gravid uterus. The kidneys demonstrate minimal prominence of the renal collecting system without significant dilatation. There is no ventriculomegaly. The spine appear unremarkable. The stomach is visualized as well as the bladder. The four-chamber view, cord insertion and three-vessel cord are not seen due to position. Biometrical measurements are as follows: Biparietal 5.4 cm, age 22 weeks 3 days. Head circumference 19.6 cm, age 21 weeks 6 days. Abdominal circumference 17.2 cm, age 22 weeks 2 days. Femur length 3.8 cm, age 22 weeks 1 days. Sonographic estimate age: 22 weeks 2 days. Sonographic estimated date of delivery: 05/07/17. Estimated Weight: 477 gm (+/- 70 gm). LMP percentile: 86%. heart rate: 158 beats per minute. number: 1 of 1. IMPRESSION: Followup within 2-3 weeks is suggested to reevaluate four-chamber view, three-vessel cord and cord insertion. Dictated by: Dictated on workstation # [id number]
== END ==
LOC: RAD 13:53
PROVIDERS: ATTEND Family Medicine
DX: Z34.92 Encounter for supervision of normal pregnancy, unspecified, second trimester (principal); Z3A.22 22 weeks gestation of pregnancy
CPT/HCPCS: 76805

== ENCOUNTER → 2017-02-19 | Outpatient (CLI) | payer MEDICAID ==
[~2017-02-19] MED LIST changes: +NAPR-1071 PO; -NAPR500T PO
== END ==
LOC: LAB 11:49
PROVIDERS: ATTEND Family Medicine
DX: R73.02 Impaired glucose tolerance (oral) (principal)
CPT/HCPCS: 36415; 82951; 82952

== ENCOUNTER → 2017-02-23 | Outpatient (CLI) | payer MEDICAID ==
--- NOTE | 2017-02-23 13:26 | Diagnostic Imaging Report ---
INDICATION: Anatomical survey. TECHNIQUE: Multiple real-time grayscale images were obtained over the gravid uterus. COMPARISON: None FINDINGS: Platt gestation present in cephalic position. The posterior placenta appeared unremarkable, no abruption or previa. The amniotic fluid volume was within normal limits. The anatomical survey remains limited with suboptimal visualization of the four-chamber heart as well as the cord's insertion are not well defined. The cord now does appear to be better visualized and appears to be a three-vessel cord. No adverse development. IMPRESSION: Platt gestation was in cephalic position. The anatomical survey remains limited. We cannot well-define the cord's insertion and have suboptimal visualization of the four-chamber heart. Dictated by: Dictated on workstation # [id number]
== END ==
LOC: RAD 11:40
PROVIDERS: ATTEND Family Medicine
DX: Z36.89 Encounter for other specified antenatal screening (principal); Z3A.00 Weeks of gestation of pregnancy not specified
CPT/HCPCS: 76816

== ENCOUNTER → 2017-03-28 | Outpatient (CLI) | payer MEDICAID ==
[2017-03-28 09:37] VITALS: BP 109/59
--- NOTE | 2017-03-28 11:19 | Diagnostic Imaging Report ---
INDICATION: Large for gestational age. TECHNIQUE: Multiple real-time grayscale images were obtained over the gravid uterus. COMPARISON: 02/23/2017. FINDINGS: There is a single living intrauterine in a cephalic presentation. The placenta is fundal. There is no previa. The amniotic fluid index is 11. Heart rate is 133 beats per minute and regular. Four-chamber heart and cord insertion were again not visualized due to positioning. The biophysical profile score was normal at 8/8. IMPRESSION: 1. Normal biophysical profile score of 8/8. 2. Four-chamber heart and cord insertion were not visualized due to positioning. Biometrical measurements are as follows: Biparietal 8.44 cm, age 34 weeks 0 days. Head circumference 30.1 cm, age 33 weeks 3 days. Abdominal circumference 31.46 cm, age 35 weeks 3 days. Femur length 7.18 cm, age 36 weeks 6 days. Sonographic estimate age: 35 weeks 0 days. Sonographic estimated date of delivery: 05/02/2017. Estimated Weight: 2664 gm (+/- 389 gm). LMP percentile: 94%. heart rate: 133 beats per minute. number: 1 of 1. Dictated on workstation # [id number]
== END ==
LOC: RAD 08:40
PROVIDERS: ATTEND Family Medicine
DX: Z34.83 Encounter for supervision of other normal pregnancy, third trimester (principal); Z3A.35 35 weeks gestation of pregnancy
CPT/HCPCS: 76805; 76819

== ENCOUNTER 2017-04-19 18:40 | Inpatient (IN) | payer MEDICAID ==
[2017-04-19] VITALS (9 sets, daily range): BP systolic 108–160; BP diastolic 53–75
[~2017-04-19] VITALS: Ht 162.6 cm; Wt 137.9 kg
[2017-04-19] MEDS ORDERED: MINERAL OIL CONCENTRATE 99.9% 15 ML UDC TOP PRN (19:45)
[2017-04-19] MEDS ORDERED: DINOPROSTONE 10 MG (CERVIDIL) INSERT PV NR (19:45)
[2017-04-19] MEDS ORDERED: CATHETER FLUSH 10 ML SYR IV PRN (20:00)
[2017-04-19] MEDS: D5 LR IV SOLUTION 1,000 ML IV SCH (20:21)
[2017-04-19 20:37] LABS: BASOPHILS % (AUTO) 0 % (0-10); EOSINOPHILS # (AUTO) 0.1 10^3/uL (0.0-0.3); EOSINOPHILS % (AUTO) 1 % (0-10); HEMATOCRIT 37 % (35-52); HEMOGLOBIN 12.7 G/DL (11.5-16.0); LYMPHOCYTES # (AUTO) 2.4 X 10^3 (1.0-4.0); LYMPHOCYTES % (AUTO) 17 % (12-44); MEAN CORPUSCULAR HEMOGLOBIN 26 PG (25-34); MEAN CORPUSCULAR HGB CONC 34 G/DL (32-36); MEAN CORPUSCULAR VOLUME 77 FL (80-99); MEAN PLATELET VOLUME 12.4 FL (7.4-10.4); MONOCYTES # (AUTO) 1.1 X 10^3 (0.0-1.0); MONOCYTES % (AUTO) 8 % (0-12); NEUTROPHILS # (AUTO) 10.7 X 10^3 (1.8-7.8); NEUTROPHILS % (AUTO) 75 % (42-75); PLATELET COUNT 263 10^3/uL (130-400); RED BLOOD COUNT 4.83 10^6/uL (4.35-5.85); WHITE BLOOD COUNT 14.2 10^3/uL (4.3-11.0)
[2017-04-19 20:50] LABS: BAND NEUTROPHILS 0 %; BASOPHILS % (MANUAL) 1 %; EOSINOPHILS % (MANUAL) 1 %; LYMPHOCYTES % (MANUAL) 15 %; MONOCYTES % (MANUAL) 6 %; NEUTROPHILS % (MANUAL) 77 %
[2017-04-19 20:51] LABS: RBC MORPH NORMAL
[2017-04-20] VITALS (57 sets, daily range): BP systolic 98–193; BP diastolic 57–118
[2017-04-20] MEDS: D5 LR IV SOLUTION 1,000 ML IV SCH ×2 (03:39→11:40)
[2017-04-20] MEDS ORDERED: AMPICILLIN INJECTION 2,000 MG in NS (IVPB) 100 ML IV SCH ×2 (06:00→09:20)
[2017-04-20] MEDS ORDERED: OXYTOCIN/NORMAL SALINE 500 ML IV SCH ×2 (09:00→18:39)
[2017-04-20] MEDS ORDERED: INFLUENZA TRIvalent 2017-2018 0.5 ML/45 MCG SYR IM ONE (09:15)
[2017-04-20] MEDS ORDERED: NS (IVPB) 100 ML ONE (09:26)
[2017-04-20] MEDS ORDERED: AMPICILLIN 2000 MG INJECTION (IM/IV) ONE (09:26)
[2017-04-20] MEDS ORDERED: AMPICILLIN INJECTION 1,000 MG in NS (IVPB) 100 ML IV SCH (10:00)
[2017-04-20] MEDS ORDERED: BUTORPHANOL INJ 2 MG/ML (STADOL) VIAL IV PRN (10:45)
[2017-04-20] MEDS: CATHETER FLUSH 10 ML SYR IV SCH ×2 (10:47→20:50)
[2017-04-20 11:44] LABS: URINE CREATININE FOR RATIO 55 MG/DL (30-125); URINE PROTEIN FOR RATIO ONLY < 6 MG/DL (6-12)
[2017-04-20 11:47] LABS: ALANINE AMINOTRANSFERASE 17 U/L (0-55); ALBUMIN 3.2 GM/DL (3.2-4.5); ALKALINE PHOSPHATASE 78 U/L (40-136); BILIRUBIN,TOTAL 0.2 MG/DL (0.1-1.0); BUN/CREATININE RATIO 15; CALCIUM 8.6 MG/DL (8.5-10.1); CARBON DIOXIDE 19 MMOL/L (21-32); CHLORIDE 108 MMOL/L (98-107); CREATININE SERUM 0.61 MG/DL (0.60-1.30); GFR ESTIMATED > 60; GLUCOSE 136 MG/DL (70-105); POTASSIUM 3.7 MMOL/L (3.6-5.0); SODIUM 136 MMOL/L (135-145); TOTAL PROTEIN 6.2 GM/DL (6.4-8.2); URIC ACID 4.9 MG/DL (2.6-7.2)
[2017-04-20] MEDS: AMPICILLIN INJECTION 1,000 MG in NS (IVPB) 100 ML IV SCH ×2 (13:36→18:20)
--- NOTE | 2017-04-20 13:43 | Progress Note-Standard ---
Standard Progress Note Progress Notes/Assess & Plan Time Seen by Provider: 13:00 Final Diagnosis Pt requested anesthesia consult and evaluation for a possible MEDARDO. Reviewed lab , history and CT of lumbar spine. Discussed risks and benefits of epidural with pt and family. CHYNA RIGGINS CRNA Apr 20, 2017 13:43
[2017-04-20] MEDS ORDERED: SUFENTA 0.6MCG/ML BUPIVA 0.125 100 ML ONE (14:45)
[2017-04-20] MEDS ORDERED: LACTATED RINGERS 1,000 ML IV SCH (15:22)
[2017-04-20] MEDS ORDERED: EPIDURAL (SUFENTA 0.6MCG/ML BUPIVA 0.125%) 100 ML BAG EPI SCH (15:30)
[2017-04-20] MEDS ORDERED: diphenhydrAMINE 50 MG/ML INJ (BENADRYL) IV PRN (15:30)
[2017-04-20] MEDS ORDERED: METOCLOPRAMIDE INJ 10 MG/2 ML (REGLAN) IV PRN (15:30)
[2017-04-20] MEDS ORDERED: NALOXONE 0.4 MG/ML 1 ML (NARCAN) VIAL IV PRN ×2 (15:30)
[2017-04-20] MEDS ORDERED: ONDANSETRON 4 MG/2 ML (SDV) Z0FRAN IV PRN (15:30)
[2017-04-20] MEDS ORDERED: LACTATED RINGERS 1,000 ML IV PRN ×2 (16:57)
[2017-04-20] MEDS ORDERED: FAMOTIDINE 20MG/2ML IV (PEPCID) IV ONE (17:00)
[2017-04-20] MEDS ORDERED: METOCLOPRAMIDE INJ 10 MG/2 ML (REGLAN) IV ONE (17:00)
[2017-04-20] MEDS ORDERED: CITRIC ACID/SOB CIT (BICITRA) 30 ML UDC PO ONE (17:00)
[2017-04-20] MEDS ORDERED: CATHETER FLUSH 10 ML SYR IV PRN (17:00)
[2017-04-20] MEDS ORDERED: fentaNYL INJECTION 100 MCG/2 ML AMP ONE (18:22)
[2017-04-20] MEDS ORDERED: LIDOCAINE PF 2% 5 ML (XYLOCAINE) VIAL ONE ×2 (18:22→18:29)
[2017-04-20] MEDS ORDERED: BUPIVACAINE 0.25% 30 ML (SENSORCAINE) VIAL ONE (18:29)
[2017-04-20] MEDS ORDERED: ONDANSETRON 4 MG/2 ML (SDV) Z0FRAN ONE (18:29)
--- NOTE | 2017-04-20 18:42 | Discharge Inst-Women's Service ---
Discharge Inst-Women's Serv Depart Medication/Instructions New, Converted or Re-Newed RX: RX on Chart Consults/Follow Up Additional Follow Up: Yes Orders/Referrals Dr. Bender in 7-[address] Cartwright in 6 weeks Activity Activity: Activity as Tolerated Driving Instructions: No Driving for 1 Week NO SMOKING: NO SMOKING Nothing Inside Vagina: No Douching, No [place], No Tampons Diet Discharge Diet: No Restrictions Symptoms to Report to : Bleeding Excessive, Pain Increased, Fever Over 101 Degrees F, Vaginal Bleeding Increase, Questions/Concerns For Any Problems or Questions: Contact Your Physician Skin/Wound Care Infection Signs and Symptoms: Increased Redness, Foul Odor of Wound, Increased Drainage, Skin Itchy or Has a Rash, Increased Swelling, Temperature Above 101 F Operative Area Clean and Dry: Keep Incision Clean/Dry Stitches/Hayden/Dermabond: Dermabond, Care of Hayden Bathing Instructions: NATHALIE Yeung DO Apr 20, 2017 6:42 pm
[2017-04-20] MEDS ORDERED: ACHD5005 PO (18:44)
[2017-04-20] MEDS ORDERED: IBUP-1773 PO (18:44)
[2017-04-20] MEDS ORDERED: DOCU100C37 PO (18:44)
[2017-04-20] MEDS ORDERED: TETANUS,DIPTH,PERTUSS P/F (BOOSTRIX) 0.5 ML VIAL IM SCH (18:45)
[2017-04-20] MEDS ORDERED: HYDROmorphone (DILAUDID) 2 MG/ML VIAL IVP PRN (18:45)
[2017-04-20] MEDS ORDERED: MEASLES,MUMPS,RUBELLA 1 EA INJ SC SCH (18:45)
[2017-04-20] MEDS ORDERED: ceFAZolin 2 GM IV Premixed 50 ML IV NR (18:45)
[2017-04-20] MEDS ORDERED: OXYTOCIN/NORMAL SALINE 500 ML IV ONE ×2 (19:05→19:30)
[2017-04-20] MEDS ORDERED: KETOROLAC 30 MG/ML VIAL ONE (19:05)
[2017-04-20] MEDS ORDERED: MEPERIDINE (DEMEROL) INJ 50 MG/ML IVP PRN (19:45)
[2017-04-20] MEDS ORDERED: morphine INJ 10 MG/ML 1ML (SYR OR VIAL) IVP PRN (19:45)
[2017-04-20] MEDS ORDERED: CATHETER FLUSH 10 ML SYR IV SCH (22:00)
[2017-04-20] MEDS: HYDROcodone/APAP 5 MG/325 MG (LORTAB) TAB PO PRN (22:05)
[2017-04-20] MEDS: DOCUSATE SODIUM 100 MG (COLACE) CAP PO SCH (22:05)
[2017-04-21] MEDS: KETOROLAC 30 MG/ML VIAL IVP SCH ×2 (02:21→08:48)
--- NOTE | 2017-04-21 02:22 | OPERATIVE REPORT ---
DATE OF SERVICE: PREOPERATIVE DIAGNOSES: 1. 26-year-old G1, P0 at 37 weeks and 2 days gestation. 2. intolerance of labor. 3. BMI of greater than 50. 4. Nuchal cord x1. POSTOPERATIVE DIAGNOSES: 1. 26-year-old G1, P0 at 37 weeks and 2 days gestation. 2. intolerance of labor. 3. BMI of greater than 50. 4. Nuchal cord x1. PROCEDURE: Primary low transverse section. SURGEON: Dr. Quinn Bender. POLYMER SCIENTIST: LEN Sheikh. ANESTHESIA: Spinal. ESTIMATED BLOOD LOSS: 400 mL. URINE OUTPUT: 1100 mL clear at the end of the procedure. FLUIDS: 1100 mL of lactate Ringer solution. FINDINGS: Live male infant weighing 6 pounds 7 ounces, Apgars of 8 and 9. Grossly normal appearing bilateral fallopian tubes and ovaries. SPECIMEN SENT: Placenta. INDICATIONS FOR PROCEDURE: This 26-year-old female is a patient who had followed her care with Dr. Cartwright at the [facility] and was induced due to gestational diabetes. She made little to no twisting frame changer the early progression of her labor and when she finally did get into her active change pattern with adequate contractions, there were repetitive late decelerations. Due to the ongoing decelerations and concern for intolerance of labor, they did attempt to volume resuscitate with IV fluids and oxygen supplemental and restart the Pitocin, which the fetus did not tolerate; therefore they recommended proceeding with and I was consulted for delivery. Risk of this was briefly reviewed with the patient in the preoperative area including risk of bleeding, infection, damage to any surrounding structures including but not limited to bowel, bladder, ureter, kidneys, risk of damage to the infant, postoperative complications and even . After everything was discussed with the patient, consent was obtained. The patient taken to the operating room. OPERATIVE REPORT IN DETAIL: Once in the operating room, spinal anesthesia was found to be adequate. She was placed in the supine position with leftward tilt, prepped and draped in normal sterile fashion. Her panniculus is taped in the cephalad correlation using bandage tape which allowed us to see the incision point for a Pfannenstiel skin incision. A time out was performed and anesthesia was tested. I then make a Pfannenstiel skin incision with a knife and carried down to underlying fascia using Bovie cautery. The fascial incision extended laterally using Bovie cautery. Superior edge of fascial incision was then grasped with Kacey clamps tented up and dissected off the underlying rectus muscles. The inferior aspect of the fascial incision was then grasped with Kacey clamps, tented up and dissected off the underlying rectus muscles. The rectus muscles were dissected down the midline using Bailey scissors, which exposed the peritoneum which entered bluntly and extended using blunt traction. An Art ring retractor was then placed within the peritoneal incision which offers excellent lateral sidewall retraction. I then identified the lower uterine segment and it was found to be thinned out. I make a low transverse incision to the lower uterine segment using a knife just through the vesicouterine peritoneum and bluntly dissected bladder flap off of the lower uterine segment. I proceed with the myotomy until membranes were visualized, at which point I extended the uterine incision laterally and superiorly using bandage scissors and clear fluid was noted at time of rupture during this process. The was found on the vertex presentation with gentle fundal pressure. The 's head was elevated up to the incision where its nares and oropharynx are bulb suctioned at delivery of the head. There is a nuchal cord reduced x1. Anterior and posterior shoulders were delivered. was then brought to the operative field where the cord was doubly clamped and cut and infant handed off to Dr. Cartwright for delivery. Cord blood was collected, 3-vessel cord with intact placenta delivered spontaneously thereafter. IV Pitocin was initiated to facilitate uterine contraction. Uterine fundus became firmer with bimanual massage. Uterus was exteriorized and cleared of all endometrial clots and debris. We then closed the uterine incision using 0 Vicryl suture in a running locking fashion. Second layer of imbricating 0 Monocryl was placed. Excellent hemostasis noted after doing so. I then placed the uterus back within the pelvis and copiously irrigated the pelvis using normal saline. Once again there is no active bleeding noted from any of my dissection planes. I placed Interceed antiadhesive over my low transverse incision and proceeded with closing the peritoneum using 3-0 Vicryl suture in running fashion after Art ring retractor was removed. The rectus muscle reapproximated using 3-0 Vicryl suture in an interrupted fashion. The fascia was reapproximated using 0 Vicryl suture in running fashion. Subcutaneous tissue was reapproximated using 3-0 plain interrupted subcutaneous stitch and skin reapproximated using may. Sterile dressings with adhesive white tape. The patient tolerated the procedure well and sent to recovery area in stable condition. Lap and sponge counts correct at the end of the procedure. Instrument counts were correct as well. Two grams of Ancef given preoperatively for infection prophylaxis. Job ID: [id number] DocumentID: [id number] Dictated Date: 04/20/2017 19:42:06 Communications Electrician Supervisor Date: 04/21/2017 02:21:50 Dictated By: DO GERALDINE MATOS
[2017-04-21 04:25] VITALS: BP 122/79
[2017-04-21 05:29] LABS: BASOPHILS % (AUTO) 0 % (0-10); EOSINOPHILS # (AUTO) 0.1 10^3/uL (0.0-0.3); EOSINOPHILS % (AUTO) 1 % (0-10); HEMATOCRIT 32 % (35-52); HEMOGLOBIN 10.7 G/DL (11.5-16.0); LYMPHOCYTES # (AUTO) 1.7 X 10^3 (1.0-4.0); LYMPHOCYTES % (AUTO) 14 % (12-44); MEAN CORPUSCULAR HEMOGLOBIN 26 PG (25-34); MEAN CORPUSCULAR HGB CONC 33 G/DL (32-36); MEAN CORPUSCULAR VOLUME 79 FL (80-99); MEAN PLATELET VOLUME 11.7 FL (7.4-10.4); MONOCYTES # (AUTO) 1.4 X 10^3 (0.0-1.0); MONOCYTES % (AUTO) 12 % (0-12); NEUTROPHILS % (AUTO) 74 % (42-75); PLATELET COUNT 193 10^3/uL (130-400); RED BLOOD COUNT 4.07 10^6/uL (4.35-5.85); RED CELL DISTRIBUTION WIDTH 15.1 % (10.0-14.5); WHITE BLOOD COUNT 12.2 10^3/uL (4.3-11.0)
[2017-04-21 08:00] VITALS: BP 130/80
[2017-04-21] MEDS ORDERED: FERR325T5 PO (08:46)
--- NOTE | 2017-04-21 08:48 | Postpartum Progress Note ---
Note Note Day #1 Subjective: Patient is without complaints. Ambulating, voiding. Tolerating a regular diet without nausea or vomiting. Normal lochia. Pain is well controlled with oral pain medications. Objective: Vital Sign - Last 24 Hours 04/20/17 04/20/17 04/20/17 04/20/17 09:15 09:50 10:20 10:40 Pulse 82 80 69 76 Resp 18 18 18 18 B/P (MAP) 123/78 (93) 139/90 (106) 142/90 (107) 140/98 (112) O2 Delivery Room Air Room Air Room Air Room Air 04/20/17 04/20/17 04/20/17 04/20/17 10:55 11:10 11:25 11:35 Temp 98.6 Pulse 73 75 71 Resp 18 18 18 B/P (MAP) 153/94 (113) 179/103 (128) 177/97 (123) O2 Delivery Room Air Room Air Room Air 04/20/17 04/20/17 04/20/17 04/20/17 11:55 12:05 12:25 12:40 Pulse 75 70 69 71 Resp 18 18 18 18 B/P (MAP) 159/93 (115) 150/89 (109) 142/97 (112) 147/69 (95) O2 Delivery Room Air Room Air Room Air Room Air 04/20/17 04/20/17 04/20/17 04/20/17 12:55 13:05 13:25 13:35 Pulse 63 69 67 69 Resp 18 18 18 18 B/P (MAP) 147/93 (111) 133/74 (93) 136/86 (103) 148/70 (96) O2 Delivery Room Air Room Air Room Air Room Air 04/20/17 04/20/17 04/20/17 04/20/17 13:50 14:05 14:20 14:40 Pulse 71 72 70 69 Resp 18 18 18 18 B/P (MAP) 131/75 (93) 154/79 (104) 155/91 (112) 160/89 (112) O2 Delivery Room Air Room Air Room Air Room Air 04/20/17 04/20/17 04/20/17 04/20/17 14:55 15:03 15:05 15:07 Pulse 68 75 85 72 Resp 18 18 18 18 B/P (MAP) 135/77 (96) 144/78 (100) 149/86 (107) 135/77 (96) Pulse Ox 97 99 O2 Delivery Room Air Room Air Room Air Room Air 04/20/17 04/20/17 04/20/17 04/20/17 15:10 15:13 15:15 15:16 Pulse 84 73 80 80 Resp 18 18 18 18 B/P (MAP) 136/90 (105) 193/118 (143) 149/75 (99) 149/75 (99) Pulse Ox 96 96 99 99 O2 Delivery Room Air Room Air Room Air Room Air 04/20/17 04/20/17 04/20/17 04/20/17 15:24 15:29 16:00 16:00 Pulse 80 81 73 95 Resp 18 18 18 18 B/P (MAP) 180/100 (126) 188/102 (130) 149/75 (99) Pulse Ox 99 99 99 99 O2 Delivery Room Air Room Air Room Air Non Rebreather O2 Flow Rate 12.00 04/20/17 04/20/17 04/20/17 04/20/17 16:15 16:45 17:00 17:15 Pulse 80 83 80 82 Resp 18 18 18 18 B/P (MAP) 127/78 (94) 145/60 (88) 131/73 (92) 147/65 (92) Pulse Ox 100 100 99 100 O2 Delivery Non Rebreather Room Air Room Air Room Air O2 Flow Rate 12.00 04/20/17 04/20/17 04/20/17 04/20/17 17:30 17:45 18:00 18:15 Pulse 85 81 80 82 Resp 18 18 18 18 B/P (MAP) 127/64 (85) 128/62 (84) 125/64 (84) 136/67 (90) Pulse Ox 99 98 98 98 O2 Delivery Room Air Room Air Room Air Room Air 04/20/17 04/20/17 04/20/17 04/20/17 18:30 20:49 21:40 23:48 Temp 97.8 98.3 Pulse 85 84 80 Resp 18 18 18 B/P (MAP) 128/65 (86) 98/57 (71) 106/60 (75) Pulse Ox 99 96 97 O2 Delivery Room Air Room Air 04/21/17 04/21/17 04:25 08:00 Temp 97.7 98.0 Pulse 79 83 Resp 18 18 B/P (MAP) 122/79 (93) 130/80 (97) Pulse Ox 99 98 O2 Delivery Room Air Intake and Output 04/20/17 04/20/17 04/21/17 15:00 23:00 07:00 Intake Total 1100 ml 2100 ml 1600 ml Output Total 1500 ml 730 ml Balance 1100 ml 600 ml 870 ml Physical Exam: General - Alert and oriented, no apparent distress Abdomen - Soft, appropriately tender to palpation, non-distended, fundus firm at umbilicus Extremities - no edema, negative Michelle's bilaterally Incision- c/d/i may Assessment: POD 1 PLTCS-VIJAY BMI >50 GDMA Plan: Routine care. Encourage breast feeding. Encourage ambulation. Ferrous sulfate supplementation. Plan for discharge tomorrow Vitals - Labs Vital Signs - I&O Vital Signs Date Time Temp Pulse Resp B/P (MAP) Pulse Ox O2 Delivery O2 Flow Rate FiO2 04/21/17 08:00 98.0 83 18 130/80 (97) 98 Room Air 04/21/17 04:25 97.7 79 18 122/79 (93) 99 04/20/17 23:48 98.3 80 18 106/60 (75) 97 04/20/17 21:40 97.8 84 18 98/57 (71) 96 04/20/17 20:49 Room Air 04/20/17 18:30 85 18 128/65 (86) 99 Room Air 04/20/17 18:15 82 18 136/67 (90) 98 Room Air 04/20/17 18:00 80 18 125/64 (84) 98 Room Air 04/20/17 17:45 81 18 128/62 (84) 98 Room Air 04/20/17 17:30 85 18 127/64 (85) 99 Room Air 04/20/17 17:15 82 18 147/65 (92) 100 Room Air 04/20/17 17:00 80 18 131/73 (92) 99 Room Air 04/20/17 16:45 83 18 145/60 (88) 100 Room Air 04/20/17 16:15 80 18 127/78 (94) 100 Non Rebreather 12.00 04/20/17 16:00 95 18 99 Non Rebreather 12.00 04/20/17 16:00 73 18 149/75 (99) 99 Room Air 04/20/17 15:29 81 18 188/102 (130) 99 Room Air 04/20/17 15:24 80 18 180/100 (126) 99 Room Air 04/20/17 15:16 80 18 149/75 (99) 99 Room Air 04/20/17 15:15 80 18 149/75 (99) 99 Room Air 04/20/17 15:13 73 18 193/118 (143) 96 Room Air 04/20/17 15:10 84 18 136/90 (105) 96 Room Air 04/20/17 15:07 72 18 135/77 (96) 99 Room Air 04/20/17 15:05 85 18 149/86 (107) Room Air 04/20/17 15:03 75 18 144/78 (100) 97 Room Air 04/20/17 14:55 68 18 135/77 (96) Room Air 04/20/17 14:40 69 18 160/89 (112) Room Air 04/20/17 14:20 70 18 155/91 (112) Room Air 04/20/17 14:05 72 18 154/79 (104) Room Air 04/20/17 13:50 71 18 131/75 (93) Room Air 04/20/17 13:35 69 18 148/70 (96) Room Air 04/20/17 13:25 67 18 136/86 (103) Room Air 04/20/17 13:05 69 18 133/74 (93) Room Air 04/20/17 12:55 63 18 147/93 (111) Room Air 04/20/17 12:40 71 18 147/69 (95) Room Air 04/20/17 12:25 69 18 142/97 (112) Room Air 04/20/17 12:05 70 18 150/89 (109) Room Air 04/20/17 11:55 75 18 159/93 (115) Room Air 04/20/17 11:35 71 18 177/97 (123) Room Air 04/20/17 11:25 75 18 179/103 (128) Room Air 04/20/17 11:10 04/20/17 10:55 98.6 73 18 153/94 (113) Room Air 04/20/17 10:40 76 18 140/98 (112) Room Air 04/20/17 10:20 69 18 142/90 (107) Room Air 04/20/17 09:50 80 18 139/90 (106) Room Air 04/20/17 09:15 82 18 123/78 (93) Room Air I & O 04/21/17 07:00 Intake Total 4800 ml Output Total 2230 ml Balance 2570 ml Labs Laboratory Tests 04/20/17 11:07: Sodium Level 136, Potassium Level 3.7, Chloride Level 108H, Carbon Dioxide Level 19L, Anion Gap 9, Blood Urea Nitrogen 9, Creatinine 0.61, Estimat Glomerular Filtration Rate > 60, BUN/Creatinine Ratio 15, Glucose Level 136H, Uric Acid 4.9, Calcium Level 8.6, Total Bilirubin 0.2, Aspartate Amino Transf ( AST/SGOT) 14, Alanine Aminotransferase (ALT/SGPT) 17, Alkaline Phosphatase 78, Lactate Dehydrogenase 127, Total Protein 6.2L, Albumin 3.2 04/20/17 11:10: Urine Protein < 6L, Urine Creatinine 55, Urine Protein/Creatinine Ratio 04/21/17 05:15: White Blood Count 12.2H, Red Blood Count 4.07L, Hemoglobin 10.7L, Hematocrit 32L , Mean Corpuscular Volume 79L, Mean Corpuscular Hemoglobin 26, Mean Corpuscular Hemoglobin Concent 33, Red Cell Distribution Width 15.1H, Platelet Count 193, Mean Platelet Volume 11.7H, Neutrophils (%) (Auto) 74, Lymphocytes (%) (Auto) 14 , Monocytes (%) (Auto) 12, Eosinophils (%) (Auto) 1, Basophils (%) (Auto) 0, Neutrophils # (Auto) 9.0H, Lymphocytes # (Auto) 1.7, Monocytes # (Auto) 1.4H, Eosinophils # (Auto) 0.1, Basophils # (Auto) 0.0 NATHALIE LORA DO Apr 21, 2017 8:48 am
[2017-04-21] MEDS: DOCUSATE SODIUM 100 MG (COLACE) CAP PO SCH ×2 (10:05→21:59)
--- NOTE | 2017-04-21 11:08 | Anesthesia-Regional Post-Op ---
Regional Patient Condition Mental Status: Alert, Oriented x3 Circulation: Same as Pre-Op Headache: Absent Sensation: Full Recovery Motor Block: Absent Post Op Complications Complications None Follow Up Care/Instructions Patient Instructions None needed. Anesthesia/Patient Condition Patient is doing well, no complaints, stable vital signs, no apparent adverse anesthesia problems. No complications reported per nursing. ARMOND GUERRA CRNA Apr 21, 2017 11:08
[2017-04-21 12:00] VITALS: BP 122/66
[2017-04-21] MEDS: IBUPROFEN 600 MG (MOTRIN) TAB PO SCH (15:13)
[2017-04-21 16:00] VITALS: BP 135/81
[2017-04-21] MEDS: HYDROcodone/APAP 5 MG/325 MG (LORTAB) TAB PO PRN ×2 (17:01→22:00)
[2017-04-21 20:30] VITALS: BP 125/70
[2017-04-22] MEDS: IBUPROFEN 600 MG (MOTRIN) TAB PO SCH ×3 (00:37→15:12)
[2017-04-22 01:00] VITALS: BP 118/68
[2017-04-22] MEDS: HYDROcodone/APAP 5 MG/325 MG (LORTAB) TAB PO PRN (03:21)
[2017-04-22 08:17] VITALS: BP 132/82
[2017-04-22] MEDS: DOCUSATE SODIUM 100 MG (COLACE) CAP PO SCH (08:18)
--- NOTE | 2017-04-22 09:27 | Postpartum Progress Note ---
Post Op Post-operative Day #2 s/p PLTCS, FTP Morbidly obese. Subjective: Patient is without complaints. Ambulating, voiding after perez removed. Tolerating a regular diet without nausea or vomiting. Normal lochia. Pain is well controlled with oral pain medications. Passing flatus. Breast feeding. Has been having some feeding issues. Not latching well. Objective: Vital Sign - Last 12Hours 04/22/17 04/22/17 01:00 08:17 Temp 97.3 97.3 Pulse 91 98 Resp 18 18 B/P (MAP) 118/68 (85) 132/82 (99) Pulse Ox 97 98 O2 Delivery Room Air Room Air Intake and Output 04/22/17 00:00 Intake Total 1500 ml Output Total 2150 ml Balance -650 ml Physical Exam: General - Alert and oriented, no apparent distress Abdomen - Soft, appropriately tender to palpation, non-distended, fundus firm at umbilicus Incision - clean, dry and intact; no erythema or induration, no drainage Extremities - no edema, negative Michelle's bilaterally Assessment: 1. post-operative day # 2, status post PLTCS. 2. morbid obesity, BMI 52 Plan: Routine post-operative care. Encourage breast feeding. Encourage ambulation. VTE prophylaxis: SCDs. and lovenox Ferrous sulfate supplementation. Plan for discharge today or tomorrow. Patient opted for discharge today after working on breast feeding Vitals - Labs Vital Signs - I&O Vital Signs Date Time Temp Pulse Resp B/P (MAP) Pulse Ox O2 Delivery O2 Flow Rate FiO2 04/22/17 08:17 97.3 98 18 132/82 (99) 98 Room Air 04/22/17 01:00 97.3 91 18 118/68 (85) 97 Room Air 04/21/17 20:30 97.8 89 18 125/70 (88) 97 Room Air 04/21/17 16:00 96.8 89 18 135/81 (99) 97 Room Air 04/21/17 12:00 97.6 89 18 122/66 (84) 97 Room Air I & O 04/22/17 07:00 Intake Total 2700 ml Output Total 3750 ml Balance -1050 ml KELLY VERGARA DO Apr 22, 2017 09:27
[2017-04-22] MEDS ORDERED: ENOXAPARIN 40 MG/0.4 ML (LOVENOX) SYR SC SCH (09:30)
[2017-04-22 15:11] VITALS: BP 135/74
== END 2017-04-22 17:35 | disposition home or self-care (01) | DRG 765 ==
LOC: LDRP 18:40
PROVIDERS: ADMIT Family Medicine; ATTEND Family Medicine
PROC: 3E0P7GC Introduction of Other Therapeutic Substance into Female Reproductive, Via Natural or Artificial Opening (ICD-10-PCS; 2017-04-19)
PROC: 10D00Z1 Extraction of Products of Conception, Low, Open Approach (ICD-10-PCS; principal; 2017-04-20 18:36)
DX: O24.425 Gestational diabetes mellitus in childbirth, controlled by oral hypoglycemic drugs (principal); O76 Abnormality in fetal heart rate and rhythm complicating labor and delivery; O99.214 Obesity complicating childbirth; E66.01 Morbid (severe) obesity due to excess calories; Z68.43 Body mass index [BMI] 50.0-59.9, adult; O69.81X0 Labor and delivery complicated by cord around neck, without compression, not applicable or unspecified; Z37.0 Single live birth; Z3A.37 37 weeks gestation of pregnancy; Z23 Encounter for immunization
CPT/HCPCS: 36415; 80053; 82570; 83615; 84156; 84550; 85007; 85025; 85027; 86850; 86900; 86901; 90707; 94664

== ENCOUNTER 2017-09-24 22:35 | Emergency (ER) | payer MEDICAID ==
[~2017-09-24] VITALS: Ht 160 cm; Wt 139.3 kg
[~2017-09-24 22:35] MED LIST changes: +ACHD5005 PO; +DOCU100C37 PO; +FERR325T5 PO; +IBUP-1773 PO
--- OUTSIDE RECORDS SUMMARY | 2017-09-24 22:41 | XMS REPORT | Clinical Summary ---
Author Author [facility] Organization [facility] Address Unknown Phone Unavailable Care Team Providers Care Basketball Assembler Name Role Phone Ambrose Chavezele ALEXIA PCP Source Comments Some departments are not documenting in the electronic medical record. If you do not see the information that you expected, contact Release of Information in the Health Information Management department at [phone] for further assistance in locating additional records.[facility] Allergies No Known Allergies Current Medications Prescription [...] Taken Blood Pressure 135/70 03/02/2016 1:58 PM NEUROLOGY PROFESSOR Pulse 104 03/02/2016 1:58 PM NEUROLOGY PROFESSOR Temperature - - Respiratory Rate - - Oxygen Saturation - - Inhaled Oxygen - - Concentration Weight 120.2 kg (265 lb) 03/02/2016 1:58 PM NEUROLOGY PROFESSOR Height 162.6 cm (5' 4") 03/02/2016 1:58 PM NEUROLOGY PROFESSOR Body Mass Index 45.49 03/02/2016 1:58 PM NEUROLOGY PROFESSOR Plan of Treatment Health Maintenance Due Date Last Done Comments PHYSICAL (COMPREHENSIVE) 1997 EXAM PERTUSSIS VACCINE 2001 HIV SCREENING 2005 TETANUS VACCINE 05/14/2007 CERVICAL CANCER SCREENING 05/14/2011 INFLUENZA VACCINE 11/13/2017 HPV VACCINES Aged Out No longer eligible based on patient's age to complete this topic Results Not on filefrom Last 3 Months
--- OUTSIDE RECORDS SUMMARY | 2017-09-24 22:41 | XMS REPORT ---
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 Active [id number] Problem Anxiety disorder, unspecified F41.9 Active 876357974 Problem Lesion of sciatic nerve, left lower limb G57.02 Active 401016992249830 Problem Abdominal pannus E65 Active 4408470093034 Problem Obesity during in third trimester O99.213 Active 890248501 Problem Post depression F53 Active 23666821 Problem Gestational diabetes mellitus (GDM) in third trimester, gestational diabetes method of control unspecified O24.419 Active 82653034 Problem Lumbago with sciatica, left side M54.42 Active 905758734 Problem Lumbago with sciatica, right side M54.41 Active 658909583 Problem Bipolar disorder, unspecified F31.9 Active 98641246 Problem Hypertriglyceridemia E78.1 Active 509653745 Problem Attention deficit hyperactivity disorder F90.9 Active 940283898 Problem Metabolic syndrome E88.81 Active 455837888 Problem Other chronic pain G89.29 Active 44835021 Problem Obesity affecting in second trimester O99.212 Active 045576490091 Problem Suppurative hidradenitis L73.2 Active 13951707 Problem Gastro-esophageal reflux disease without esophagitis K21.9 Active 405824574 ALLERGIES No Information ENCOUNTERS Encounter Location Date Diagnosis [facility] [address] [facility] [id number] [address] Oct, [facility] [address] [address] Sep, [facility] [address] [place] [address] 77830- 3949 Aug, Bipolar disorder, unspecified F31.9 [facility] [id number] [place] [address] 94189- 2209 Jul, Bipolar disorder, unspecified F31.9 [facility] [address] [address] Jul, Bipolar disorder, unspecified F31.9 ; Attention deficit hyperactivity disorder F90.9 and BMI 50.0-59.9, adult Z68.43 [facility] [address] [address] Jul, Somatic dysfunction of pelvis region M99.05 ; Somatic dysfunction of sacral region M99.04 ; Somatic dysfunction of lumbar region M99.03 ; Lesion of sciatic nerve, left lower limb G57.02 ; Lesion of sciatic nerve, 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 and BMI 50.0-59.9, adult Z68.43 [facility] [address] [address] June, [facility] [address] [address] June, Bipolar disorder, unspecified F31.9 ; Attention deficit hyperactivity disorder F90.9 ; High risk medication use Z79.899 and BMI 50.0- 59.9, adult Z68.43 [facility] [address] [address] June, [facility] [address] [address] June, Hidradenitis suppurativa L73.2 and BMI 50.0-59.9, adult Z68.43 [facility] [id number] [place] [address] 07213- 7063 June, Bipolar disorder, unspecified F31.9 and BMI 50.0-59.9, adult Z68.43 [facility] [id number] [place] [address] 39779- 4031 May, [facility] [id number] [place] [address] 97948- 1810 May, Lumbago with sciatica, left side M54.42 ; care and examination Z39.2 ; Lumbago with sciatica, right side M54.41 ; Other chronic pain G89.29 ; BMI 50.0-59.9, adult Z68.43 ; Abdominal pannus E65 ; Suppurative hidradenitis L73.2 and Post depression F53 [facility] [id number] [place] [address] 17628- 3921 Apr, [facility] [id number] [place] [address] 13257- 4355 Apr, Abdominal pannus E65 and BMI 45.0-49.9, adult Z68.42 [place] [id number] [place] [address] 46265- 8754 Apr, Screening for iron deficiency anemia Z13.0 [facility] [id number] [place] [address] 69167- 4326 Apr, Bipolar disorder, unspecified F31.9 [facility] [id number] [place] [address] 17931- 7168 Apr, Obesity during in third trimester O99.213 ; Third trimester Z34.93 ; Gestational diabetes mellitus (GDM) in third trimester controlled on oral hypoglycemic drug O24.415 ; 37 weeks gestation of Z3A.37 and Oligohydramnios in third trimester, single or unspecified fetus O41.03X0 [facility] [id number] [place] [address] 93818- 2840 Mar, Third trimester Z34.93 [facility] [address] [address]- 5155 Mar, Gestational diabetes mellitus (GDM) in third trimester controlled on oral hypoglycemic drug O24.415 [facility] [facility] [address] [address]- 0[address] Mar, [facility] [id number] [place] [address] 43487- 4643 Mar, Third trimester Z34.93 ; Gestational diabetes mellitus (GDM) in third trimester controlled on oral hypoglycemic drug O24.415 and 35 weeks gestation of Z3A.35 [facility] [id number] [place] [address] 04998- 7124 15 Mar, 2017 BMI 50.0-59.9, adult Z68.43 and Bipolar disorder, unspecified F31.9 [facility] [address] [place] [address] 10863- 8332 13 Mar, 2017 Diet controlled gestational diabetes mellitus (GDM), antepartum O24.410 [facility] [id number] [place] [address] 08481- 4168 07 Mar, 2017 33 weeks gestation of Z3A.33 ; Gestational diabetes mellitus (GDM) in third trimester controlled on oral hypoglycemic drug O24.415 ; Third trimester Z34.93 and Obesity affecting in third trimester O99.213 [facility] [facility] [address] [address]- 4598 Mar, [facility] [address] [address]- 7[address] Feb, Third trimester Z34.93 ; Encounter for immunization Z23 ; Gestational diabetes mellitus (GDM) in third trimester controlled on oral hypoglycemic drug O24.415 ; Obesity during in third trimester O99.213 and 31 weeks gestation of Z3A.31 [facility] [facility] [address] [address]- 7706 Feb, [facility] [address] [address]- 8437 16 Feb, 2017 Gestational diabetes mellitus (GDM) in third trimester, gestational diabetes method of control unspecified O24.419 [facility] [facility] [address] [place] [address] 50947- 8166 Feb, [facility] [address] [place] [address] 06355- 4526 16 Feb, 2017 [facility] [id number] [place] [address] 37321- 3506 Feb, Bipolar disorder, unspecified F31.9 and BMI 50.0-59.9, adult Z68.43 [address] [place] [address] 42200- 5125 10 Feb, 2017 29 weeks gestation of Z3A.29 ; Gestational diabetes mellitus (GDM) in third trimester, gestational diabetes method of control unspecified O24.419 ; Third trimester Z34.93 ; Obesity affecting in third trimester O99.213 and BMI 50.0-59.9, adult Z68.43 [facility] [address] [place] [address] 35003- 4377 15 Jan, 2017 Abnormal glucose tolerance test (GTT) R73.02 [facility] [address] [place] [address] [id number] 15 Jan, 2017 Dental examination Z01.20 [address] [place] [address] 55950- 0519 14 Jan, 2017 Bipolar disorder, unspecified F31.9 [facility] [address] [place] [address] 82095- 8984 12 Jan, 2017 25 weeks gestation of Z3A.25 ; Second trimester Z34.92 ; Gastro-esophageal reflux disease without esophagitis K21.9 ; Diseases of the digestive system complicating , second trimester O99.612 ; Abnormal ultrasonic finding on screening of mother O28.3 and BMI 50.0-59.9, adult Z68.43 [facility] [facility] [address] [place] [address] 16916- 3590 Jan, [facility] [id number] [place] [address] 47809- 5226 Dec, [facility] [id number] [place] [address] 13572- 2010 14 Dec, 2016 Dental examination Z01.20 [facility] [id number] [place] [address] 25533- 1272 14 Dec, 2016 Second trimester Z34.92 ; 21 weeks gestation of Z3A.21 and Obesity affecting in second trimester O99.212 [facility] [id number] [place] [address] 11645- 2607 13 Dec, 2016 [facility] [id number] [place] [address] 11308- 4223 10 Dec, 2016 Lump of right breast N63.10 ; Abscess of left thigh L02.416 and BMI 45.0-49.9, adult Z68.42 [facility] [address] [place] [address] [id number] 10 Dec, 2016 Dental examination Z01.20 [facility] [id number] [place] [address] 12207- 7176 08 Dec, 2016 [facility] [id number] [place] [address] 07460- 0840 Dec, Bipolar disorder, unspecified F31.9 [facility] [address] [place] [address] 16706- 4207 Nov, [facility] [id number] [place] [address] 13266- 5315 Nov, [facility] [id number] [place] [address] 73758- 0369 Nov, 17 weeks gestation of Z3A.17 and Right non- suppurative otitis media H65.91 [facility] [id number] [place] [address] 39062- 4565 Nov, [facility] [address] [address]- 1916 Nov, [facility] [id number] [place] [address] 42215- 2524 Nov, Bipolar disorder, unspecified F31.9 [facility] [id number] [place] [address] 57420- 1405 10 Nov, 2016 16 weeks gestation of Z3A.16 ; Second trimester Z34.92 and Obesity affecting in second trimester O99.212 [facility] [address] [address] Nov, Encounter for dental examination Z01.20 [facility] [id number] [place] [address] 76595- 1995 13 Oct, 2016 [facility] [id number] [place] [address] 27722- 4548 Oct, 12 weeks gestation of Z3A.12 ; First trimester Z34.90 and Obesity affecting in first trimester O99.211 [facility] [id number] [place] [address] 24048- 0828 Sep, [facility] [id number] [place] [address] 10519- 1986 Sep, [facility] [address] [place] [address] 51274- 9082 Sep, Bipolar disorder, unspecified F31.9 [facility] [address] [place] [address] 80137- 3049 Sep, [facility] [id number] [place] [address] 68656- 7605 Sep, [facility] [address] [place] [address] 39982- 9526 Sep, Normal , first Z34.00 [facility] [id number] [place] [address] 12833- 8879 Sep, Normal , first Z34.00 ; 8 weeks gestation of Z3A.08 and Obesity affecting in first trimester O99.211 [facility] [id number] [place] [address] 52244- 5280 Sep, Anxiety disorder, unspecified F41.9 [facility] [id number] [place] [address] 90070- 2667 Sep, Encounter for test, result unknown Z32.00 [facility] [id number] [place] [address] 87955- 1411 Sep, [facility] [facility] [address] 50329- 2691 Aug, Anxiety disorder, unspecified F41.9 [facility] [id number] [place] [address] 93038- 0405 Jul, Suppurative hidradenitis L73.2 ; Metabolic syndrome E88.81 ; BMI 40.0-44.9, adult Z68.41 and High risk sexual behavior Z72.51 [facility] [id number] [place] [address] 98694- 5236 Jul, Anxiety disorder, unspecified F41.9 [facility] [id number] [place] [address] 41608- 4320 June, Anxiety disorder, unspecified F41.9 ; Attention deficit hyperactivity disorder F90.9 and Bipolar disorder, unspecified F31.9 [facility] [id number] [place] [address] 26643- 1653 June, Attention deficit hyperactivity disorder F90.9 [facility] [id number] [place] [address] 28759- 7009 May, Attention deficit hyperactivity disorder F90.9 [facility] [id number] [place] [address] 58092- 6012 Apr, Attention deficit hyperactivity disorder F90.9 [facility] [address] [place] [address] 62630- 0069 14 Mar, 2016 Abscess L02.91 and Screening for STD sexually transmitted disease Z11.3 [place] [id number] [place] [address] 54318- 3410 03 Mar, 2016 Attention deficit hyperactivity disorder F90.9 [place] [id number] [place] [address] 93859- 6444 Feb, Attention deficit hyperactivity disorder F90.9 [place] [id number] [place] [address] 03503- 5884 Feb, Attention deficit disorder of adult F98.8 and DMDD ( disruptive mood dysregulation disorder) F34.81 [place] [id number] [place] [address] 15484- 9938 Jan, Exposure to sexually transmitted disease (STD) Z20.2 and Metabolic syndrome E88.81 [place] [id number] [place] [address] 49363- 0032 Jan, Possible exposure to STD Z20.2 ; BMI 40.0-44.9, adult Z68.41 ; Metabolic syndrome E88.81 ; Elevated fasting glucose R73.01 and Hypertriglyceridemia E78.[address] [place] [address] 86731- 9128 Jan, Possible exposure to STD Z20.2 ; Lumbago with sciatica, left side M54.42 ; Lumbago with sciatica, right side M54.41 ; BMI 40.0-44.9, adult Z68.41 ; Metabolic syndrome E88.81 ; Elevated fasting glucose R73.01 ; Hypertriglyceridemia E78.1 and Suppurative hidradenitis L73.2 [place] [id number] [place] [address] 94853- 5008 Dec, Attention deficit hyperactivity disorder F90.9 [place] [id number] [place] [address] 35479- 9472 Dec, [address] [id number] [address]- 8089 Nov, [facility] [id number] [place] [address] 45772- 0473 Nov, [facility] [address] [place] [address] 82640- 4201 Nov, [facility] [id number] [place] [address] 69643- 0790 Nov, [facility] [address] [place] [address] 14384- 2538 Oct, Lumbago with sciatica, left side M54.42 and Other chronic pain G89.29 [facility] [id number] [place] [address] 02933- 9921 Oct, Lumbago with sciatica, left side M54.42 ; Lumbago with sciatica, right side M54.41 ; Other chronic pain G89.29 and Suppurative hidradenitis L73.2 [facility] [address] [place] [address] 48419- 0467 Oct, [facility] [id number] [place] [address] 23803- 2514 Sep, [facility] [address] [place] [address] 07134- 0046 Sep, Unprotected sexual intercourse Z72.51 ; Hidradenitis suppurativa L73.2 ; Elevated fasting glucose R73.01 ; BMI 40.0-44.9, adult Z68.41 and Irregular menses N92.6 [facility] [id number] [place] [address] 13719- 1501 Aug, [facility] [address] [place] [address] 19662- 6953 Jul, Routine health maintenance Z00.00 ; Abscess L02.91 ; H/O hidradenitis suppurativa Z87.2 ; Irregular menses N92.6 ; BMI 40.0-44.9, adult Z68.41 ; Elevated fasting glucose R73.01 and Hypertriglyceridemia E78.1 [facility] [id number] [place] [address] 56796- 8611 Jul, [facility] [address] [place] [address] 48106 -8295 Jul, Hidradenitis suppurativa L73.2 [facility] [id number] [place] [address] 09780- 3589 Jul, Bipolar disorder, unspecified F31.9 ; Anxiety disorder, unspecified F41.9 and Attention deficit hyperactivity disorder F90.9 [facility] [id number] [place] [address] 63783- 8431 June, [facility] [id number] [place] [address] 85958- 8727 June, [facility] [id number] [place] [address] 67605- 2933 May, [facility] [id number] [place] [address] 91289- 2022 Apr, [facility] [id number] [place] [address] 41167- 3566 Apr, Well woman exam Z01.419 ; BMI 40.0-44.9, adult Z68.41 ; Tobacco use Z72.0 ; Family history of diabetes mellitus Z83.3 ; Hidradenitis suppurativa L73.2 ; Routine screening for STI (sexually transmitted infection) Z11.3 ; Unprotected sexual intercourse Z72.51 and Family history of breast cancer Z80.3 [facility] [id number] [place] [address] 12399- 2757 Apr, Bipolar disorder, unspecified F31.9 ; Anxiety disorder, unspecified F41.9 and Attention deficit hyperactivity disorder F90.9 [facility] [id number] [place] [address] 51808- 1424 Mar, [facility] [address] [place] [address] 06553- 6592 Feb, [facility] [id number] [place] [address] 65928- 5514 Feb, [facility] [id number] [place] [address] 43692- 0172 Jan, Encounter for test, result negative Z32.02 and BMI 40.0-44.9, adult Z68.41 [facility] [id number] [place] [address] 62065- 9128 Jan, Bipolar disorder, unspecified F31.9 ; Anxiety disorder, unspecified F41.9 and Attn-defct hyperactivity disorder, predom inattentive type F90.0 [facility] [id number] [place] [address] 26032- 3065 Jan, [facility] [id number] [place] [address] 14856- 6856 Dec, [facility] [id number] [place] [address] 96268- 8609 Dec, Bipolar disorder, unspecified F31.9 ; Attention deficit hyperactivity disorder F90.9 and Anxiety disorder, unspecified F41.9 [facility] [id number] [place] [address] 23591- 1168 Nov, Irregular menses N92.6 ; Unprotected sexual intercourse Z72.51 ; Screening for STD sexually transmitted disease Z11.3 ; General counseling and advice for contraceptive management Z30.09 ; Oral contraceptive pill surveillance Z30.41 ; BMI 40.0-44.9, adult Z68.41 and H/O hidradenitis suppurativa Z87.2 [facility] [address] [place] [address] [id number] Sep, Dental examination V72.2 [facility] [id number] [place] [address] 58386- 5124 Sep, Screen for STD (sexually transmitted disease) V74.5 and General counseling on prescription of oral contraceptives V25.01 [facility] [address] [address]- 6756 14 May, 2014 [facility] [address] [facility] [id number] [address]- 8035 May, [facility] [address] [address]- 6402 30 Apr, 2014 [facility] [address] [facility] [id number] [address]- 4791 30 Apr, 2014 [facility] [address] [place] [address] 40158- 0158 Apr, [facility] [id number] [address]- 3621 Apr, [facility] [address] [place] [address] 77683- 1521 Apr, [facility] [address] [address]- 2783 Apr, [facility] [address] [address]- 5031 Apr, [facility] [address] [address]- 2261 Mar, [facility] [address] [address]- 2254 Mar, [facility] [address] [facility] [id number] [address]- 7922 Mar, [facility] [address] 3218 Mar, [facility] [id number] 1086 Mar, [facility] [address] [address]- 2491 Mar, [facility] [place] [facility] [address] [id number] [place] [address]- 5588 Jan, [facility] [place] [facility] [address] [id number] [place] 3289 Jan, [facility] [place] [facility] [address] [id number] [place] [address]- 7484 Dec, [facility] [place] [facility] [address] [id number] [place] [address]- 9601 Dec, [facility] [place] [facility] [address] [id number] [place] [address]- 0361 Dec, [facility] [place] [facility] [address] [id number] [place] [address]- 7338 Dec, [facility] [place] [facility] [address] [id number] [place] [address]- 5276 Sep, [facility] [place] [facility] [address] [id number] [place] [address]- 4803 Sep, [facility] [place] [facility] [address] [id number] [place] [address]- 9442 Apr, [facility] [place] [facility] [address] [id number] [place] [address] Apr, [facility] [place] [facility] [address] [id number] [place] [address] Mar, [facility] [place] [facility] [address] [id number] [place] [address] Mar, [facility] [place] [facility] [address] [id number] [place] [address] Mar, [facility] [place] [facility] [address] [id number] [place] [address] Mar, [facility] [place] [facility] [address] [id number] [place] [address] Jan, [facility] [place] [facility] [address] [facility] [id number] [place] [address] Jan, [facility] [address] [facility] [id number] [address] Dec, [facility] [address] [facility] [id number] [place] [address] Dec, [facility] [address] [facility] [id number] [place] [address] Dec, IMMUNIZATIONS No Known Immunizations SOCIAL HISTORY Never Assessed REASON FOR VISIT Requests return call PLAN OF CARE VITAL SIGNS MEDICATIONS Unknown Medications RESULTS No Results PROCEDURES No Known procedures INSTRUCTIONS MEDICATIONS ADMINISTERED No Known Medications MEDICAL (GENERAL) HISTORY Type Description Date Medical History Hidradenitis Supprativa Medical History Bipolar Disorder Medical History ADHD Surgical History pilonidal cyst removal tailbone Surgical History 2018 Hospitalization History Dehydration & concussion 07/23/2016 Hospitalization History child 2018
--- OUTSIDE RECORDS SUMMARY | 2017-09-24 22:42 | XMS REPORT ---
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 Active [id number] Problem Anxiety disorder, unspecified F41.9 Active 857371839 Problem Lesion of sciatic nerve, left lower limb G57.02 Active 367016730277655 Problem Abdominal pannus E65 Active 6103786740738 Problem Obesity during in third trimester O99.213 Active 052061585 Problem Post depression F53 Active 54924983 Problem Gestational diabetes mellitus (GDM) in third trimester, gestational diabetes method of control unspecified O24.419 Active 18647534 Problem Lumbago with sciatica, left side M54.42 Active 545664492 Problem Lumbago with sciatica, right side M54.41 Active 324957152 Problem Bipolar disorder, unspecified F31.9 Active 51875038 Problem Hypertriglyceridemia E78.1 Active 630535481 Problem Attention deficit hyperactivity disorder F90.9 Active 402524243 Problem Metabolic syndrome E88.81 Active 346804303 Problem Other chronic pain G89.29 Active 77020446 Problem Obesity affecting in second trimester O99.212 Active 890477105725 Problem Suppurative hidradenitis L73.2 Active 07557097 Problem Gastro-esophageal reflux disease without esophagitis K21.9 Active 436894281 ALLERGIES Substance Reaction Event Type Date Status Bees anaphylaxis Non Drug Allergy Apr, Active ENCOUNTERS Encounter Location Date Diagnosis [place] [address] [address] Oct, [place] [address] [place] [id number] [place] [address] 68506- 8620 Jul, Bipolar disorder, unspecified F31.9 [place] [address] [place] [address] 36846- 6933 Jul, Bipolar disorder, unspecified F31.9 ; Attention deficit hyperactivity disorder F90.9 and BMI 50.0-59.9, adult Z68.43 [place] [address] [place] [address] 93351- 3635 14 Jul, 2017 Somatic dysfunction of pelvis region M99.05 ; Somatic dysfunction of sacral region M99.04 ; Somatic dysfunction of lumbar region M99.03 ; Lesion of sciatic nerve, left lower limb G57.02 ; Lesion of sciatic nerve, 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 and BMI 50.0-59.9, adult Z68.43 [place] [address] [place] [address] 58425- 8832 June, [place] [address] [place] [id number] [place] [address] 40301- 5596 June, Bipolar disorder, unspecified F31.9 ; Attention deficit hyperactivity disorder F90.9 ; High risk medication use Z79.899 and BMI 50.0- 59.9, adult Z68.43 [place] [address] [address] June, [place] [address] [address] June, Hidradenitis suppurativa L73.2 and BMI 50.0-59.9, adult Z68.43 [place] [address] [address] 69[address] June, Bipolar disorder, unspecified F31.9 and BMI 50.0-59.9, adult Z68.43 [place] [address] [place] [id number] [place] [address] 51825- 6823 May, [place] [address] [place] [id number] [place] [address] 82908- 4664 May, Lumbago with sciatica, left side M54.42 ; care and examination Z39.2 ; Lumbago with sciatica, right side M54.41 ; Other chronic pain G89.29 ; BMI 50.0-59.9, adult Z68.43 ; Abdominal pannus E65 ; Suppurative hidradenitis L73.2 and Post depression F53 [place] [address] [place] [id number] [place] [address] 31321- 6180 Apr, [place] [address] [place] [id number] [place] [address] 44872- 3690 Apr, Abdominal pannus E65 and BMI 45.0-49.9, adult Z68.42 [place] [address] [place] [id number] [place] [address] 41783- 0702 Apr, Screening for iron deficiency anemia Z13.0 [place] [address] [place] [id number] [place] [address] 01794- 4323 15 Apr, 2017 Bipolar disorder, unspecified F31.9 [place] [address] [place] [id number] [place] [address] 86608- 5059 07 Apr, 2017 Obesity during in third trimester O99.213 ; Third trimester Z34.93 ; Gestational diabetes mellitus (GDM) in third trimester controlled on oral hypoglycemic drug O24.415 ; 37 weeks gestation of Z3A.37 and Oligohydramnios in third trimester, single or unspecified fetus O41.03X0 [place] [address] [place] [id number] [place] [address] 18579- 7503 Mar, Third trimester Z34.93 [place] [address] [place] [id number] [place] [address] 90312- 8711 Mar, Gestational diabetes mellitus (GDM) in third trimester controlled on oral hypoglycemic drug O24.415 [place] [id number] [place] [address] 37532- 3351 Mar, [place] [address] [place] [id number] [place] [address] 58018- 6593 22 Mar, 2017 Third trimester Z34.93 ; Gestational diabetes mellitus (GDM) in third trimester controlled on oral hypoglycemic drug O24.415 and 35 weeks gestation of Z3A.35 [place] [address] [place] [id number] [place] [address] 47560- 0425 15 Mar, 2017 BMI 50.0-59.9, adult Z68.43 and Bipolar disorder, unspecified F31.9 [place] [address] [place] [id number] [place] [address] 37081- 9417 13 Mar, 2017 Diet controlled gestational diabetes mellitus (GDM), antepartum O24.410 [place] [address] [place] [id number] [place] [address] 29546- 3058 07 Mar, 2017 33 weeks gestation of Z3A.33 ; Gestational diabetes mellitus (GDM) in third trimester controlled on oral hypoglycemic drug O24.415 ; Third trimester Z34.93 and Obesity affecting in third trimester O99.213 [place] [address] [place] [id number] [place] [address] 00456- 6218 01 Mar, 2017 [place] [address] [place] [address] 39973- 8036 Feb, Third trimester Z34.93 ; Encounter for immunization Z23 ; Gestational diabetes mellitus (GDM) in third trimester controlled on oral hypoglycemic drug O24.415 ; Obesity during in third trimester O99.213 and 31 weeks gestation of Z3A.31 [place] [address] [place] [id number] [place] [address] 08062- 3837 Feb, [place] [address] [place] [id number] [place] [address] 46959- 8607 Feb, Gestational diabetes mellitus (GDM) in third trimester, gestational diabetes method of control unspecified O24.419 [place] [address] [place] [address] 8125 16 Feb, 2017 [place] [address] [place] [id number] [place] [address] 26338- 9329 Feb, [place] [address] [place] [id number] [place] [address] 36428- 2786 Feb, Bipolar disorder, unspecified F31.9 and BMI 50.0-59.9, adult Z68.43 [place] [address] 80205- 0694 10 Feb, 2017 29 weeks gestation of Z3A.29 ; Gestational diabetes mellitus (GDM) in third trimester, gestational diabetes method of control unspecified O24.419 ; Third trimester Z34.93 ; Obesity affecting in third trimester O99.213 and BMI 50.0-59.9, adult Z68.[address] 36268- 9684 15 Jan, 2017 Abnormal glucose tolerance test (GTT) R73.02 [facility] [address] [id number] 15 Jan, 2017 Dental examination Z01.20 [place] [id number] [place] [address] 22640- 5878 14 Jan, 2017 Bipolar disorder, unspecified F31.9 [place] [address] [place] [id number] [place] [address] 59026- 9979 12 Jan, 2017 25 weeks gestation of Z3A.25 ; Second trimester Z34.92 ; Gastro-esophageal reflux disease without esophagitis K21.9 ; Diseases of the digestive system complicating , second trimester O99.612 ; Abnormal ultrasonic finding on screening of mother O28.3 and BMI 50.0-59.9, adult Z68.43 [place] [address] [place] [id number] [place] [address] 06495- 2755 05 Jan, 2017 [place] [address] [place] [id number] [place] [address] 84588- 0726 Dec, [address] [place] [id number] [place] [address] 78212- 8052 14 Dec, 2016 Dental examination Z01.20 [facility] [address] [place] [id number] [place] [address] 89122- 3205 14 Dec, 2016 Second trimester Z34.92 ; 21 weeks gestation of Z3A.21 and Obesity affecting in second trimester O99.212 [facility] [address] 76413- 4369 13 Dec, 2016 [facility] [address] 28357- 3894 10 Dec, 2016 Lump of right breast N63.10 ; Abscess of left thigh L02.416 and BMI 45.0-49.9, adult Z68.42 [facility] [address] [place] [id number] [place] [address] [id number] 10 Dec, 2016 Dental examination Z01.20 [facility] [address] 64702- 7100 08 Dec, 2016 [facility] [address] 46316- 5913 Dec, Bipolar disorder, unspecified F31.9 [facility] [address] [place] [id number] [place] [address] 27019- 7574 24 Nov, 2016 [facility] [address] [place] [id number] [place] [address] 30495- 9054 Nov, [facility] [address] [place] [id number] [place] [address] 18135- 5952 Nov, 17 weeks gestation of Z3A.17 and Right non- suppurative otitis media H65.91 [facility] [address] [place] [id number] [place] [address] 14608- 4547 16 Nov, 2016 [facility] [address] [place] [id number] [place] [address] 53664- 9629 Nov, [facility] [address] [place] [address] [id number] [place] [address] 88639- 7940 Nov, Bipolar disorder, unspecified F31.9 [facility] [address] [address]- 7726 10 Nov, 2016 16 weeks gestation of Z3A.16 ; Second trimester Z34.92 and Obesity affecting in second trimester O99.212 [facility] [address] [address] 03 Nov, 2016 Encounter for dental examination Z01.20 [facility] [id number] [place] [address] 47302- 0700 13 Oct, 2016 [facility] [address] [place] [id number] [place] [address] 23700- 1331 12 Oct, 2016 12 weeks gestation of Z3A.12 ; First trimester Z34.90 and Obesity affecting in first trimester O99.211 [facility] [address] [place] [id number] [place] [address] 82227- 9959 Sep, [facility] [id number] [place] [address] 20961- 3049 Sep, [facility] [address] [place] [id number] [place] [address] 61816- 6660 Sep, Bipolar disorder, unspecified F31.9 [facility] [address] [address]- 0930 Sep, [facility] [address] [address]- 3162 Sep, [facility] [address] [address] Sep, Normal , first Z34.00 [facility] [id number] [place] [address] 87228- 4139 15 Sep, 2016 Normal , first Z34.00 ; 8 weeks gestation of Z3A.08 and Obesity affecting in first trimester O99.211 [facility] [address] [place] [address] 88510- 8538 Sep, Anxiety disorder, unspecified F41.9 [place] [address] [place] [id number] [place] [address] 47122- 2767 Sep, [place] [address] [place] [id number] [place] [address] 91217- 8415 Sep, Encounter for test, result unknown Z32.00 [place] [address] [place] [id number] [place] [address] 09475- 1421 Aug, Anxiety disorder, unspecified F41.9 [place] [address] [place] [id number] [place] [address] 29083- 5181 Jul, Suppurative hidradenitis L73.2 ; Metabolic syndrome E88.81 ; BMI 40.0-44.9, adult Z68.41 and High risk sexual behavior Z72.51 [place] [address] 79875- 9813 Jul, Anxiety disorder, unspecified F41.9 [place] [address] [place] [id number] [place] [address] 84714- 0809 June, Anxiety disorder, unspecified F41.9 ; Attention deficit hyperactivity disorder F90.9 and Bipolar disorder, unspecified F31.9 [place] [address] [place] [id number] [place] [address] 90888- 3322 June, Attention deficit hyperactivity disorder F90.9 [place] [address] [place] [id number] [place] [address] 12658- 9104 May, Attention deficit hyperactivity disorder F90.9 [place] [id number] [place] [address] 77703- 0678 Apr, Attention deficit hyperactivity disorder F90.9 [place] [address] [place] [id number] [place] [address] 74131- 0804 14 Mar, 2016 Abscess L02.91 and Screening for STD sexually transmitted disease Z11.3 [place] [address] [place] [id number] [place] [address] 31698- 7207 Mar, Attention deficit hyperactivity disorder F90.9 [place] [id number] [place] [address] 66166- 9322 Feb, Attention deficit hyperactivity disorder F90.9 [place] [address] [place] [id number] [place] [address] 97412- 9425 Feb, Attention deficit disorder of adult F98.8 and DMDD ( disruptive mood dysregulation disorder) F34.81 [place] [address] [place] [id number] [place] [address] 93111- 5476 Jan, Exposure to sexually transmitted disease (STD) Z20.2 and Metabolic syndrome E88.81 [place] [address] [place] [id number] [place] [address] 08219- 0911 Jan, Possible exposure to STD Z20.2 ; BMI 40.0-44.9, adult Z68.41 ; Metabolic syndrome E88.81 ; Elevated fasting glucose R73.01 and Hypertriglyceridemia E78.1 [place] [address] [place] [address] 18802- 5280 Jan, Possible exposure to STD Z20.2 ; Lumbago with sciatica, left side M54.42 ; Lumbago with sciatica, right side M54.41 ; BMI 40.0-44.9, adult Z68.41 ; Metabolic syndrome E88.81 ; Elevated fasting glucose R73.01 ; Hypertriglyceridemia E78.1 and Suppurative hidradenitis L73.2 [place] [address] [address]- 2096 Dec, Attention deficit hyperactivity disorder F90.9 [place] [id number] [place] [address] 92845- 5532 Dec, [place] [id number] [place] [address] 60717- 0533 Nov, [place] [id number] [place] [address] 04828- 2479 Nov, [place] [address] [address]- 5550 Nov, [place] [address] [place] [id number] [place] [address] 92832- 7280 Nov, [place] [address] [place] [id number] [place] [address] 09792- 8656 Oct, Lumbago with sciatica, left side M54.42 and Other chronic pain G89.29 [place] [address] [place] [id number] [place] [address] 70336- 7346 Oct, Lumbago with sciatica, left side M54.42 ; Lumbago with sciatica, right side M54.41 ; Other chronic pain G89.29 and Suppurative hidradenitis L73.2 [place] [address] [address]- 4654 Oct, [place] [address] [place] [id number] [place] [address] 80136- 2282 Sep, [place] [address] [place] [id number] [place] [address] 18760- 5914 Sep, Unprotected sexual intercourse Z72.51 ; Hidradenitis suppurativa L73.2 ; Elevated fasting glucose R73.01 ; BMI 40.0-44.9, adult Z68.41 and Irregular menses N92.6 [place] [address] [place] [address] 32233- 8767 Aug, [place] [address] [place] [address] 78679- 8652 Jul, Routine health maintenance Z00.00 ; Abscess L02.91 ; H/O hidradenitis suppurativa Z87.2 ; Irregular menses N92.6 ; BMI 40.0-44.9, adult Z68.41 ; Elevated fasting glucose R73.01 and Hypertriglyceridemia E78.1 [place] [address] [place] [address] 52044- 2319 Jul, [facility] [address] [address] Jul, Hidradenitis suppurativa L73.2 [facility] [id number] [place] [address] 91758- 3158 Jul, Bipolar disorder, unspecified F31.9 ; Anxiety disorder, unspecified F41.9 and Attention deficit hyperactivity disorder F90.9 [facility] [address] [place] [id number] [place] [address] 85393- 0662 June, [place] [address] [place] [id number] [place] [address] 41614- 9527 June, [facility] [address] [place] [id number] [place] [address] 63855- 0699 May, [place] [address] [place] [id number] [place] [address] 12924- 2288 Apr, [place] [address] [place] [id number] [place] [address] 90571- 1847 Apr, Well woman exam Z01.419 ; BMI 40.0-44.9, adult Z68.41 ; Tobacco use Z72.0 ; Family history of diabetes mellitus Z83.3 ; Hidradenitis suppurativa L73.2 ; Routine screening for STI (sexually transmitted infection) Z11.3 ; Unprotected sexual intercourse Z72.51 and Family history of breast cancer Z80.3 [facility] [address] [place] [address] 68847- 3144 Apr, Bipolar disorder, unspecified F31.9 ; Anxiety disorder, unspecified F41.9 and Attention deficit hyperactivity disorder F90.9 [facility] [address] [place] [id number] [place] [address] 60036- 2499 Mar, [facility] [address] [place] [id number] [place] [address] 06926- 9217 Feb, [facility] [address] [place] [id number] [place] [address] 59998- 4504 Feb, [place] [address] [place] [address] 86097- 4103 Jan, Encounter for test, result negative Z32.02 and BMI 40.0-44.9, adult Z68.41 [place] [address] [place] [id number] [place] [address] 25891- 3934 Jan, Bipolar disorder, unspecified F31.9 ; Anxiety disorder, unspecified F41.9 and Attn-defct hyperactivity disorder, predom inattentive type F90.0 [place] [address] [place] [id number] [place] [address] 59534- 6239 Jan, [place] [address] [place] [id number] [place] [address] 41941- 1858 Dec, [place] [address] [place] [id number] [place] [address] 74785- 3432 Dec, Bipolar disorder, unspecified F31.9 ; Attention deficit hyperactivity disorder F90.9 and Anxiety disorder, unspecified F41.9 [place] [address] [place] [id number] [place] [address] 83023- 8674 Nov, Irregular menses N92.6 ; Unprotected sexual intercourse Z72.51 ; Screening for STD sexually transmitted disease Z11.3 ; General counseling and advice for contraceptive management Z30.09 ; Oral contraceptive pill surveillance Z30.41 ; BMI 40.0-44.9, adult Z68.41 and H/O hidradenitis suppurativa Z87.2 [facility] [id number] [place] [address] [id number] Sep, Dental examination V72.2 [place] [address] [place] [id number] [place] [address] 52207- 5638 Sep, Screen for STD (sexually transmitted disease) V74.5 and General counseling on prescription of oral contraceptives V25.01 [place] [id number] [place] [address] 34447- 3645 May, [facility] [place] [facility] [address] [id number] [place] [address]- 2473 May, [facility] [place] [facility] [address] [id number] [place] [address]- 5015 Apr, [facility] [place] [facility] [address] [id number] [place] [address]- 1029 Apr, [facility] [place] [facility] [address] [id number] [place] [address]- 9651 Apr, [facility] [place] [facility] [address] [id number] [place] [address]- 2725 Apr, [facility] [place] [facility] [address] [id number] [place] [address]- 1417 Apr, [facility] [place] [facility] [address] [facility] [id number] [place] [address]- 8617 Apr, [facility] [place] [facility] [address] [id number] [place] [address]- 1813 Apr, [facility] [place] [facility] [address] [id number] [place] [address]- 1394 Mar, [facility] [place] [facility] [address] [facility] [id number] [place] [address]- 5491 Mar, [facility] [place] [facility] [address] [facility] [id number] [place] [address]- 0095 Mar, [facility] [place] [facility] [address] [facility] [id number] [place] [address]- 7575 Mar, [facility] [place] [facility] [address] [facility] [id number] [place] [address]- 7170 Mar, [facility] [place] [facility] [address] [id number] [id number] [address] Mar, [facility] [place] [facility] [address] [facility] [id number] [place] [address] Jan, [facility] [place] [facility] [address] [facility] [id number] [address] Jan, [facility] [place] [facility] [address] [id number] [place] [address] Dec, [facility] [place] [facility] [address] [id number] [place] [address] Dec, [facility] [place] [facility] [address] [id number] [place] [address] Dec, [facility] [place] [facility] [address] [id number] [place] [address] Dec, [facility] [place] [facility] [address] [id number] [place] [address] Sep, [facility] [place] [facility] [address] [id number] [place] [address] Sep, [facility] [place] [facility] [address] [facility] [id number] [place] [address] Apr, [facility] [place] [facility] [address] [facility] [id number] [place] [address] Apr, [facility] [place] [facility] [address] [facility] [id number] [place] [address] Mar, [facility] [place] [facility] [address] [facility] [id number] [place] [address] Mar, [facility] [place] [facility] [address] [facility] [id number] [place] [address] Mar, [facility] [place] [facility] [address] [facility] [id number] [place] [address] Mar, [facility] [place] [facility] [address] [id number] [place] [address] Jan, [facility] [place] [facility] [address] [id number] [place] [address] Jan, [facility] [place] [facility] [address] [facility] [id number] [place] [address] Dec, [facility] [place] [facility] [address] [facility] [id number] [place] [address] Dec, [facility] [address] [facility] [id number] [place] [address] Dec, IMMUNIZATIONS No Known Immunizations SOCIAL HISTORY Never Assessed REASON FOR VISIT Incision checks-Magdy Gongora review PLAN OF CARE Activity Details Follow Up Has PP visit scheduled Reason: VITAL SIGNS Height 64 in 2017-05-03 Weight 284.0 lbs 2017-05-03 Temperature 98.4 degrees Fahrenheit 2017-05-03 Heart Rate 84 bpm 2017-05-03 Respiratory Rate 20 2017-05-03 BMI 48.74 kg/m2 2017-05-03 Blood pressure systolic 116 mmHg 2017-05-03 Blood pressure diastolic 68 mmHg 2017-05-03 MEDICATIONS Medication Instructions Dosage Frequency Start Date End Date Duration Status Vitamins - (Dis) Active Iron 325 (65 Fe) MG Orally Once a day 1 tablet 24h Active Lancets - test blood sugar Feb, Active Blood Glucose Test Strip test strips ONE TOUCH 4 times a day DX: O24.419 test blood sugar Feb, Active Blood Glucose Monitor System w/Device as directed Feb, Active Metformin HCl 500 mg Orally Twice a day 2 tablets with breakfast, 1 tablet with dinner 12h Feb, Active Ranitidine HCl 75 MG Orally Twice a day 1 tablet as needed 12h 12 Jan, 2017 Not-Taking RESULTS No Results PROCEDURES No Known procedures INSTRUCTIONS MEDICATIONS ADMINISTERED No Known Medications MEDICAL (GENERAL) HISTORY Type Description Date Medical History Hidradenitis Supprativa Medical History Bipolar Disorder Medical History ADHD Surgical History pilonidal cyst removal tailbone Surgical History 2018 Hospitalization History Dehydration & concussion 07/23/2016 Hospitalization History child 2018
--- OUTSIDE RECORDS SUMMARY | 2017-09-24 22:42 | XMS REPORT ---
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 Active 24952834633587649 Problem Anxiety disorder, unspecified F41.9 Active 664489014 Problem Lesion of sciatic nerve, left lower limb G57.02 Active [id number] Problem Abdominal pannus E65 Active 5913472631553 Problem Obesity during in third trimester O99.213 Active 064020133 Problem Post depression F53 Active 66830267 Problem Gestational diabetes mellitus (GDM) in third trimester, gestational diabetes method of control unspecified O24.419 Active 96016639 Problem Lumbago with sciatica, left side M54.42 Active 092445197 Problem Lumbago with sciatica, right side M54.41 Active 189028548 Problem Bipolar disorder, unspecified F31.9 Active 41162162 Problem Hypertriglyceridemia E78.1 Active 667917759 Problem Attention deficit hyperactivity disorder F90.9 Active 173036260 Problem Metabolic syndrome E88.81 Active 499419520 Problem Other chronic pain G89.29 Active 57058308 Problem Obesity affecting in second trimester O99.212 Active 611554354226 Problem Suppurative hidradenitis L73.2 Active 60235296 Problem Gastro-esophageal reflux disease without esophagitis K21.9 Active 347176741 ALLERGIES Substance Reaction Event Type Date Status Bees anaphylaxis Non Drug Allergy May, Active ENCOUNTERS Encounter Location Date Diagnosis [facility] [address] [address] Oct, [place] [id number] [address] Sep, [facility] [address] [address] Aug, Bipolar disorder, unspecified F31.9 [place] [id number] [place] [address] 01781- 7401 Jul, Bipolar disorder, unspecified F31.9 [place] [id number] [place] [address] 97972- 4483 Jul, Bipolar disorder, unspecified F31.9 ; Attention deficit hyperactivity disorder F90.9 and BMI 50.0-59.9, adult Z68.43 [place] [id number] [place] [address] 76300- 6128 Jul, Somatic dysfunction of pelvis region M99.05 ; Somatic dysfunction of sacral region M99.04 ; Somatic dysfunction of lumbar region M99.03 ; Lesion of sciatic nerve, left lower limb G57.02 ; Lesion of sciatic nerve, 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 and BMI 50.0-59.9, adult Z68.43 [place] [address] [address] June, [place] [address] [place] [address] 91733- 5582 June, Bipolar disorder, unspecified F31.9 ; Attention deficit hyperactivity disorder F90.9 ; High risk medication use Z79.899 and BMI 50.0- 59.9, adult Z68.43 [place] [id number] [place] [address] 19801- 7449 June, [place] [address] [address] June, Hidradenitis suppurativa L73.2 and BMI 50.0-59.9, adult Z68.43 [place] [id number] [place] [address] 59266- 8061 June, Bipolar disorder, unspecified F31.9 and BMI 50.0-59.9, adult Z68.43 [place] [id number] [place] [address] 38602- 2906 May, [place] [address] [address]- [address] May, Lumbago with sciatica, left side M54.42 ; care and examination Z39.2 ; Lumbago with sciatica, right side M54.41 ; Other chronic pain G89.29 ; BMI 50.0-59.9, adult Z68.43 ; Abdominal pannus E65 ; Suppurative hidradenitis L73.2 and Post depression F53 [address] [address]- [address] Apr, [place] [address] [address] Apr, Abdominal pannus E65 and BMI 45.0-49.9, adult Z68.42 [place] [id number] [place] [address] 16116- 7683 Apr, Screening for iron deficiency anemia Z13.0 [place] [id number] [place] [address] 74340- 0882 Apr, Bipolar disorder, unspecified F31.9 [place] [id number] [place] [address] 26571- 6951 07 Apr, 2017 Obesity during in third trimester O99.213 ; Third trimester Z34.93 ; Gestational diabetes mellitus (GDM) in third trimester controlled on oral hypoglycemic drug O24.415 ; 37 weeks gestation of Z3A.37 and Oligohydramnios in third trimester, single or unspecified fetus O41.03X0 [place] [id number] [place] [address] 58271- 4945 Mar, Third trimester Z34.93 [place] [id number] [place] [address] 70971- 2997 Mar, Gestational diabetes mellitus (GDM) in third trimester controlled on oral hypoglycemic drug O24.415 [place] [id number] [place] [address] 21085- 6918 Mar, [place] [id number] [place] [address] 07042- 5624 Mar, Third trimester Z34.93 ; Gestational diabetes mellitus (GDM) in third trimester controlled on oral hypoglycemic drug O24.415 and 35 weeks gestation of Z3A.35 [place] [id number] [place] [address] 96593- 9052 15 Mar, 2017 BMI 50.0-59.9, adult Z68.43 and Bipolar disorder, unspecified F31.9 [place] [id number] [place] [address] 32666- 7309 13 Mar, 2017 Diet controlled gestational diabetes mellitus (GDM), antepartum O24.410 [place] [id number] [place] [address] 11152- 9685 07 Mar, 2017 33 weeks gestation of Z3A.33 ; Gestational diabetes mellitus (GDM) in third trimester controlled on oral hypoglycemic drug O24.415 ; Third trimester Z34.93 and Obesity affecting in third trimester O99.213 [place] [address] [place] [address] 34124- 5261 Mar, [place] [id number] [place] [address] 87505- 4941 Feb, Third trimester Z34.93 ; Encounter for immunization Z23 ; Gestational diabetes mellitus (GDM) in third trimester controlled on oral hypoglycemic drug O24.415 ; Obesity during in third trimester O99.213 and 31 weeks gestation of Z3A.31 [place] [id number] [place] [address] 75221- 1847 Feb, [place] [address] [address]- 6674 Feb, Gestational diabetes mellitus (GDM) in third trimester, gestational diabetes method of control unspecified O24.419 [place] [address] [address]- 2432 Feb, [place] [id number] [place] [address] 81044- 2794 Feb, [place] [address] [place] [address] 46370- 0182 Feb, Bipolar disorder, unspecified F31.9 and BMI 50.0-59.9, adult Z68.43 [address] [place] [address] 85485- 3457 10 Feb, 2017 29 weeks gestation of Z3A.29 ; Gestational diabetes mellitus (GDM) in third trimester, gestational diabetes method of control unspecified O24.419 ; Third trimester Z34.93 ; Obesity affecting in third trimester O99.213 and BMI 50.0-59.9, adult Z68.43 [address] [place] [address] 96062- 2911 15 Jan, 2017 Abnormal glucose tolerance test (GTT) R73.02 [facility] [address] [place] [address] [id number] 15 Jan, 2017 Dental examination Z01.20 [address] [place] [address] 19450- 8224 14 Jan, 2017 Bipolar disorder, unspecified F31.9 [address] [place] [address] 99015- 8242 12 Jan, 2017 25 weeks gestation of Z3A.25 ; Second trimester Z34.92 ; Gastro-esophageal reflux disease without esophagitis K21.9 ; Diseases of the digestive system complicating , second trimester O99.612 ; Abnormal ultrasonic finding on screening of mother O28.3 and BMI 50.0-59.9, adult Z68.43 [facility] [address] [address]- 4[address] 05 Jan, 2017 [facility] [id number] [place] [address] 35601- 7618 30 Dec, 2016 [facility] [address] [place] [address] 82640- 8999 14 Dec, 2016 Dental examination Z01.20 [facility] [id number] [place] [address] 31683- 9440 14 Dec, 2016 Second trimester Z34.92 ; 21 weeks gestation of Z3A.21 and Obesity affecting in second trimester O99.212 [place] [id number] [place] [address] 36657- 6779 13 Dec, 2016 [facility] [id number] [place] [address] 17339- 0172 10 Dec, 2016 Lump of right breast N63.10 ; Abscess of left thigh L02.416 and BMI 45.0-49.9, adult Z68.42 [facility] [id number] [place] [address] [phone] 10 Dec, 2016 Dental examination Z01.20 [facility] [address] [place] [address] 92002- 8283 08 Dec, 2016 [facility] [address] [place] [address] 40202- 0943 07 Dec, 2016 Bipolar disorder, unspecified F31.9 [facility] [address] [place] [address] 39330- 4370 Nov, [facility] [id number] [place] [address] 88179- 9674 Nov, [facility] [address] [place] [address] 82926- 2066 Nov, 17 weeks gestation of Z3A.17 and Right non- suppurative otitis media H65.91 [facility] [address] [address]- 0330 Nov, [facility] [address] [address]- 2912 Nov, [facility] [address] [place] [address] 12504- 5150 Nov, Bipolar disorder, unspecified F31.9 [facility] [id number] [place] [address] 52480- 9211 10 Nov, 2016 16 weeks gestation of Z3A.16 ; Second trimester Z34.92 and Obesity affecting in second trimester O99.212 [facility] [address] [place] [address] [id number] 03 Nov, 2016 Encounter for dental examination Z01.20 [facility] [address] [address]- 8990 13 Oct, 2016 [facility] [id number] [place] [address] 54437- 0777 Oct, 12 weeks gestation of Z3A.12 ; First trimester Z34.90 and Obesity affecting in first trimester O99.211 [facility] [address] [place] [address] 78380- 8759 Sep, [facility] [address] [address]- 4655 Sep, [facility] [address] [address]- 5036 Sep, Bipolar disorder, unspecified F31.9 [facility] [address] [address]- 1549 Sep, [facility] [address] [place] [address] 62427- 0304 Sep, [facility] [address] [address]- 2428 Sep, Normal , first Z34.00 [place] [id number] [place] [address] 51971- 6832 15 Sep, 2016 Normal , first Z34.00 ; 8 weeks gestation of Z3A.08 and Obesity affecting in first trimester O99.211 [place] [id number] [place] [address] 41583- 0384 Sep, Anxiety disorder, unspecified F41.9 [place] [address] 37167- 6087 Sep, [place] [id number] [place] [address] 34890- 8783 Sep, Encounter for test, result unknown Z32.00 [place] [id number] [place] [address] 23977- 1968 Aug, Anxiety disorder, unspecified F41.9 [place] [id number] [place] [address] 28285- 0720 Jul, Suppurative hidradenitis L73.2 ; Metabolic syndrome E88.81 ; BMI 40.0-44.9, adult Z68.41 and High risk sexual behavior Z72.51 [place] [id number] [place] [address] 35832- 5039 Jul, Anxiety disorder, unspecified F41.9 [place] [id number] [place] [address] 38468- 2727 June, Anxiety disorder, unspecified F41.9 ; Attention deficit hyperactivity disorder F90.9 and Bipolar disorder, unspecified F31.9 [place] [id number] [place] [address] 27267- 5715 June, Attention deficit hyperactivity disorder F90.9 [place] [id number] [place] [address] 29796- 0715 May, Attention deficit hyperactivity disorder F90.9 [place] [id number] [place] [address] 40059- 4965 Apr, Attention deficit hyperactivity disorder F90.9 [place] [address] [place] [address] 09299- 2890 14 Mar, 2016 Abscess L02.91 and Screening for STD sexually transmitted disease Z11.3 [place] [id number] [place] [address] 00549- 7557 03 Mar, 2016 Attention deficit hyperactivity disorder F90.9 [place] [id number] [place] [address] 69432- 7535 Feb, Attention deficit hyperactivity disorder F90.9 [place] [id number] [place] [address] 93577- 2117 Feb, Attention deficit disorder of adult F98.8 and DMDD ( disruptive mood dysregulation disorder) F34.81 [place] [id number] [place] [address] 90403- 6826 Jan, Exposure to sexually transmitted disease (STD) Z20.2 and Metabolic syndrome E88.81 [place] [address] [place] [address] 33203- 6903 Jan, Possible exposure to STD Z20.2 ; BMI 40.0-44.9, adult Z68.41 ; Metabolic syndrome E88.81 ; Elevated fasting glucose R73.01 and Hypertriglyceridemia E78.[address] [place] [address] 97403- 6947 Jan, Possible exposure to STD Z20.2 ; Lumbago with sciatica, left side M54.42 ; Lumbago with sciatica, right side M54.41 ; BMI 40.0-44.9, adult Z68.41 ; Metabolic syndrome E88.81 ; Elevated fasting glucose R73.01 ; Hypertriglyceridemia E78.1 and Suppurative hidradenitis L73.2 [place] [address] [address]- 9024 Dec, Attention deficit hyperactivity disorder F90.9 [place] [id number] [place] [address] 21380- 2748 Dec, [facility] [id number] [place] [address] 75610- 5182 Nov, [facility] [address] 99226- 8375 Nov, [facility] [id number] [place] [address] 08629- 6361 Nov, [place] [address] 59769- 7140 Nov, [facility] [id number] [place] [address] 41243- 8229 Oct, Lumbago with sciatica, left side M54.42 and Other chronic pain G89.29 [place] [id number] [place] [address] 34208- 9374 Oct, Lumbago with sciatica, left side M54.42 ; Lumbago with sciatica, right side M54.41 ; Other chronic pain G89.29 and Suppurative hidradenitis L73.2 [place] [id number] [place] [address] 86871- 1400 Oct, [place] [id number] [place] [address] 90834- 4794 Sep, [place] [id number] [place] [address] 54759- 6111 Sep, Unprotected sexual intercourse Z72.51 ; Hidradenitis suppurativa L73.2 ; Elevated fasting glucose R73.01 ; BMI 40.0-44.9, adult Z68.41 and Irregular menses N92.6 [place] [id number] [place] [address] 73517- 8323 Aug, [place] [id number] [place] [address] 11850- 5360 Jul, Routine health maintenance Z00.00 ; Abscess L02.91 ; H/O hidradenitis suppurativa Z87.2 ; Irregular menses N92.6 ; BMI 40.0-44.9, adult Z68.41 ; Elevated fasting glucose R73.01 and Hypertriglyceridemia E78.1 [place] [address] [address]- 4033 Jul, [facility] [address] [address] -0909 Jul, Hidradenitis suppurativa L73.2 [place] [id number] [place] [address] 58150- 3513 Jul, Bipolar disorder, unspecified F31.9 ; Anxiety disorder, unspecified F41.9 and Attention deficit hyperactivity disorder F90.9 [place] [address] [address]- 7274 June, [place] [id number] [place] [address] 08067- 9725 June, [place] [id number] [place] [address] 15510- 1498 May, [place] [id number] [place] [address] 38235- 1125 Apr, [place] [id number] [place] [address] 59142- 6148 Apr, Well woman exam Z01.419 ; BMI 40.0-44.9, adult Z68.41 ; Tobacco use Z72.0 ; Family history of diabetes mellitus Z83.3 ; Hidradenitis suppurativa L73.2 ; Routine screening for STI (sexually transmitted infection) Z11.3 ; Unprotected sexual intercourse Z72.51 and Family history of breast cancer Z80.3 [place] [address] [place] [address] 30050- 2504 Apr, Bipolar disorder, unspecified F31.9 ; Anxiety disorder, unspecified F41.9 and Attention deficit hyperactivity disorder F90.9 [place] [id number] [place] [address] 75650- 1421 Mar, [place] [id number] [place] [address] 52528- 7212 Feb, [place] [id number] [place] [address] 83680- 1744 Feb, [place] [address] 89101- 0281 Jan, Encounter for test, result negative Z32.02 and BMI 40.0-44.9, adult Z68.41 [place] [address] 94179- 2431 Jan, Bipolar disorder, unspecified F31.9 ; Anxiety disorder, unspecified F41.9 and Attn-defct hyperactivity disorder, predom inattentive type F90.0 [place] [address] 45458- 9451 Jan, [place] [id number] [place] [address] 26030- 8578 Dec, [place] [address] 04220- 7255 Dec, Bipolar disorder, unspecified F31.9 ; Attention deficit hyperactivity disorder F90.9 and Anxiety disorder, unspecified F41.9 [place] [id number] [place] [address] 25378- 8988 Nov, Irregular menses N92.6 ; Unprotected sexual intercourse Z72.51 ; Screening for STD sexually transmitted disease Z11.3 ; General counseling and advice for contraceptive management Z30.09 ; Oral contraceptive pill surveillance Z30.41 ; BMI 40.0-44.9, adult Z68.41 and H/O hidradenitis suppurativa Z87.2 [facility] [address] [place] [address] [id number] Sep, Dental examination V72.2 [place] [address] 10796- 3746 Sep, Screen for STD (sexually transmitted disease) V74.5 and General counseling on prescription of oral contraceptives V25.01 [facility] [address] [facility] [id number] [address] 14 May, 2014 [facility] [address] [facility] [id number] [address]- 6183 May, [facility] [address] [facility] [id number] [address]- 8459 30 Apr, 2014 [facility] [address] [facility] [id number] [address]- 5279 30 Apr, 2014 [facility] [address] [address]- 5546 Apr, [facility] [address] [address]- 9895 Apr, [facility] [address] [address]- 2371 Apr, [facility] [id number] [address]- 7854 Apr, [facility] [address] [address]- 4520 Apr, [facility] [address] [address]- 3875 Mar, [facility] [address] [facility] [id number] [place] [address]- 4975 Mar, [facility] [address] [facility] [id number] [place] [address]- 9943 Mar, [facility] [address] 3817 Mar, [facility] [address] 6171 Mar, [facility] [address] [place] [address]- 0551 Mar, [facility] [address] [id number] [place] [address]- 5378 Jan, [facility] [place] [facility] [address] [id number] [place] [address]- 1919 Jan, [facility] [place] [facility] [address] [id number] [place] [address]- 1083 Dec, [facility] [place] [facility] [address] [id number] [place] [address]- 8302 Dec, [facility] [place] [facility] [address] [id number] [place] [address]- 2581 Dec, [facility] [place] [facility] [address] [id number] [place] [address]- 3137 Dec, [facility] [place] [facility] [address] [id number] [place] [address]- 3970 Sep, [facility] [place] [facility] [address] [id number] [place] [address]- 5974 Sep, [facility] [place] [facility] [address] [id number] [place] [address]- 3436 Apr, [facility] [place] [facility] [address] [id number] [place] [address]- 6936 Apr, [facility] [place] [facility] [address] [id number] [place] [address]- 6653 Mar, [facility] [place] [facility] [address] [id number] [place] [address] Mar, [facility] [place] [facility] [address] [id number] [place] [address] Mar, [facility] [place] [facility] [address] [id number] [place] [address] Mar, [facility] [place] [facility] [address] [id number] [place] [address] Jan, [facility] [address] [facility] [id number] [address] Jan, [facility] [address] [facility] [id number] [address] Dec, [facility] [address] [facility] [id number] [place] [address] Dec, [facility] [address] [facility] [id number] [address] Dec, IMMUNIZATIONS No Known Immunizations SOCIAL HISTORY Never Assessed REASON FOR VISIT --Saravanan Pt explains her back hurts now more than before she was PLAN OF CARE Activity Details Follow Up 3 month with PCP Gabbie Reason: VITAL SIGNS Height 64 in 2017-06-01 Weight 293.5 lbs 2017-06-01 Temperature 97.4 degrees Fahrenheit 2017-06-01 Heart Rate 84 bpm 2017-06-01 Respiratory Rate 20 2017-06-01 BMI 50.37 kg/m2 2017-06-01 Blood pressure systolic 122 mmHg 2017-06-01 Blood pressure diastolic 80 mmHg 2017-06-01 MEDICATIONS Medication Instructions Dosage Frequency Start Date End Date Duration Status Metformin HCl 500 MG Orally Twice a day 1 tablet with meals 12h 30 Active Vitamins - (Dis) Active RESULTS No Results PROCEDURES No Known procedures INSTRUCTIONS MEDICATIONS ADMINISTERED No Known Medications MEDICAL (GENERAL) HISTORY Type Description Date Medical History Hidradenitis Supprativa Medical History Bipolar Disorder Medical History ADHD Surgical History pilonidal cyst removal tailbone Surgical History 2018 Hospitalization History Dehydration & concussion 07/23/2016 Hospitalization History child 2018
--- OUTSIDE RECORDS SUMMARY | 2017-09-24 22:42 | XMS REPORT ---
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 Active [id number] Problem Anxiety disorder, unspecified F41.9 Active 833393244 Problem Lesion of sciatic nerve, left lower limb G57.02 Active 173618327263046 Problem Abdominal pannus E65 Active 5162521603394 Problem Obesity during in third trimester O99.213 Active 611636554 Problem Post depression F53 Active 70157707 Problem Gestational diabetes mellitus (GDM) in third trimester, gestational diabetes method of control unspecified O24.419 Active 77786143 Problem Lumbago with sciatica, left side M54.42 Active 098665550 Problem Lumbago with sciatica, right side M54.41 Active 230533003 Problem Bipolar disorder, unspecified F31.9 Active 60332106 Problem Hypertriglyceridemia E78.1 Active 504081298 Problem Attention deficit hyperactivity disorder F90.9 Active 772359260 Problem Metabolic syndrome E88.81 Active 205593970 Problem Other chronic pain G89.29 Active 67631964 Problem Obesity affecting in second trimester O99.212 Active 693930272542 Problem Suppurative hidradenitis L73.2 Active 13404310 Problem Gastro-esophageal reflux disease without esophagitis K21.9 Active 418279983 ALLERGIES No Information ENCOUNTERS Encounter Location Date Diagnosis [facility] [address] [facility] [id number] [address] Oct, [place] [id number] [place] [address] 81112- 2503 Jul, Bipolar disorder, unspecified F31.9 [place] [id number] [place] [address] 41181- 2377 Jul, Bipolar disorder, unspecified F31.9 ; Attention deficit hyperactivity disorder F90.9 and BMI 50.0-59.9, adult Z68.43 [place] [address] [address] 14 Jul, 2017 Somatic dysfunction of pelvis region M99.05 ; Somatic dysfunction of sacral region M99.04 ; Somatic dysfunction of lumbar region M99.03 ; Lesion of sciatic nerve, left lower limb G57.02 ; Lesion of sciatic nerve, 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 and BMI 50.0-59.9, adult Z68.43 [place] [address] [place] [id number] [place] [address] 81724- 0162 June, [place] [address] [place] [id number] [place] [address] 54165- 0341 June, Bipolar disorder, unspecified F31.9 ; Attention deficit hyperactivity disorder F90.9 ; High risk medication use Z79.899 and BMI 50.0- 59.9, adult Z68.43 [place] [address] [address] June, [place] [address] [place] [id number] [place] [address] 77188- 5232 June, Hidradenitis suppurativa L73.2 and BMI 50.0-59.9, adult Z68.43 [place] [address] [place] [address] 95050- 0741 June, Bipolar disorder, unspecified F31.9 and BMI 50.0-59.9, adult Z68.43 [place] [address] [place] [address] 33747- 3047 May, [place] [address] [place] [id number] [place] [address] 28288- 0850 May, Lumbago with sciatica, left side M54.42 ; care and examination Z39.2 ; Lumbago with sciatica, right side M54.41 ; Other chronic pain G89.29 ; BMI 50.0-59.9, adult Z68.43 ; Abdominal pannus E65 ; Suppurative hidradenitis L73.2 and Post depression F53 [place] [address] [place] [id number] [place] [address] 87763- 1911 Apr, [place] [address] 68625- 9400 Apr, Abdominal pannus E65 and BMI 45.0-49.9, adult Z68.42 [place] [address] 90513- 3875 Apr, Screening for iron deficiency anemia Z13.0 [place] [address] [place] [id number] [place] [address] 59221- 4045 15 Apr, 2017 Bipolar disorder, unspecified F31.9 [place] [address] [place] [id number] [place] [address] 48818- 3877 07 Apr, 2017 Obesity during in third trimester O99.213 ; Third trimester Z34.93 ; Gestational diabetes mellitus (GDM) in third trimester controlled on oral hypoglycemic drug O24.415 ; 37 weeks gestation of Z3A.37 and Oligohydramnios in third trimester, single or unspecified fetus O41.03X0 [facility] [address] [place] [id number] [place] [address] 08069- 6582 Mar, Third trimester Z34.93 [place] [address] [place] [id number] [place] [address] 38668- 4394 26 Mar, 2017 Gestational diabetes mellitus (GDM) in third trimester controlled on oral hypoglycemic drug O24.415 [place] [address] 22667- 7796 Mar, [place] [address] [place] [address] 88214- 7573 Mar, Third trimester Z34.93 ; Gestational diabetes mellitus (GDM) in third trimester controlled on oral hypoglycemic drug O24.415 and 35 weeks gestation of Z3A.35 [place] [address] [place] [id number] [place] [address] 40715- 1957 15 Mar, 2017 BMI 50.0-59.9, adult Z68.43 and Bipolar disorder, unspecified F31.9 [place] [address] [place] [id number] [place] [address] 82660- 0300 13 Mar, 2017 Diet controlled gestational diabetes mellitus (GDM), antepartum O24.410 [facility] [address] [place] [id number] [place] [address] 92570- 8049 07 Mar, 2017 33 weeks gestation of Z3A.33 ; Gestational diabetes mellitus (GDM) in third trimester controlled on oral hypoglycemic drug O24.415 ; Third trimester Z34.93 and Obesity affecting in third trimester O99.213 [place] [address] [place] [id number] [place] [address] 03580- 9176 Mar, [place] [address] [place] [address] 59925- 0201 Feb, Third trimester Z34.93 ; Encounter for immunization Z23 ; Gestational diabetes mellitus (GDM) in third trimester controlled on oral hypoglycemic drug O24.415 ; Obesity during in third trimester O99.213 and 31 weeks gestation of Z3A.31 [place] [address] [place] [address] 29576- 4328 Feb, [place] [address] [place] [id number] [place] [address] 49862- 7353 Feb, Gestational diabetes mellitus (GDM) in third trimester, gestational diabetes method of control unspecified O24.419 [place] [address] [place] [id number] [place] [address] 64943- 8196 Feb, [place] [address] [place] [id number] [place] [address] 78571- 9755 Feb, [place] [address] 44015- 1499 Feb, Bipolar disorder, unspecified F31.9 and BMI 50.0-59.9, adult Z68.43 [place] [address] 50056- 5947 10 Feb, 2017 29 weeks gestation of Z3A.29 ; Gestational diabetes mellitus (GDM) in third trimester, gestational diabetes method of control unspecified O24.419 ; Third trimester Z34.93 ; Obesity affecting in third trimester O99.213 and BMI 50.0-59.9, adult Z68.[address] 56347- 7572 15 Jan, 2017 Abnormal glucose tolerance test (GTT) R73.02 [facility] [address] [id number] 15 Jan, 2017 Dental examination Z01.[address] 60389- 5807 14 Jan, 2017 Bipolar disorder, unspecified F31.9 [place] [id number] [place] [address] 58777- 9173 12 Jan, 2017 25 weeks gestation of Z3A.25 ; Second trimester Z34.92 ; Gastro-esophageal reflux disease without esophagitis K21.9 ; Diseases of the digestive system complicating , second trimester O99.612 ; Abnormal ultrasonic finding on screening of mother O28.3 and BMI 50.0-59.9, adult Z68.43 [place] [address] 09236- 0878 05 Jan, 2017 [place] [address] 71095- 4734 Dec, [address] 14600- 4046 Dec, Dental examination Z01.20 [facility] [address] [place] [id number] [place] [address] 79115- 8768 14 Dec, 2016 Second trimester Z34.92 ; 21 weeks gestation of Z3A.21 and Obesity affecting in second trimester O99.212 [facility] [address] [place] [id number] [place] [address] 66874- 9003 13 Dec, 2016 [facility] [address] 52674- 0230 Dec, Lump of right breast N63.10 ; Abscess of left thigh L02.416 and BMI 45.0-49.9, adult Z68.42 [facility] [address] [place] [id number] [place] [address] 346246676 10 Dec, 2016 Dental examination Z01.20 [facility] [address] [place] [id number] [place] [address] 34875- 7976 08 Dec, 2016 [facility] [address] [place] [id number] [place] [address] 21278- 7315 Dec, Bipolar disorder, unspecified F31.9 [facility] [address] [place] [id number] [place] [address] 83469- 3014 24 Nov, 2016 [facility] [address] [place] [id number] [place] [address] 38781- 2406 Nov, [facility] [address] [place] [id number] [place] [address] 99385- 4926 Nov, 17 weeks gestation of Z3A.17 and Right non- suppurative otitis media H65.91 [facility] [address] [place] [id number] [place] [address] 10028- 2971 Nov, [facility] [address] [place] [id number] [place] [address] 37135- 6877 Nov, [facility] [address] [place] [id number] [place] [address] 22000- 7476 Nov, Bipolar disorder, unspecified F31.9 [facility] [address] [place] [id number] [address]- 9141 10 Nov, 2016 16 weeks gestation of Z3A.16 ; Second trimester Z34.92 and Obesity affecting in second trimester O99.212 [facility] [address] [place] [id number] [address] 03 Nov, 2016 Encounter for dental examination Z01.20 [facility] [address], [place] [address]- 0277 13 Oct, 2016 [facility] [address], [place] [address]- 7173 12 Oct, 2016 12 weeks gestation of Z3A.12 ; First trimester Z34.90 and Obesity affecting in first trimester O99.211 [facility] [address], [place] [address]- 4227 Sep, [facility] [address], [place] [address]- 7773 Sep, [facility] [address] [place] [address] [address]- 9836 Sep, Bipolar disorder, unspecified F31.9 [facility] [address], [place] [address]- 1396 Sep, [facility] [address], [place] [address]- 7442 Sep, [facility] [address], [place] [address]- 9992 Sep, Normal , first Z34.00 [facility] [address] [place] [id number] [place] [address] 99022- 7181 Sep, Normal , first Z34.00 ; 8 weeks gestation of Z3A.08 and Obesity affecting in first trimester O99.211 [facility] [address], [place] [address]- 7771 Sep, Anxiety disorder, unspecified F41.9 [place] [address] [place] [id number] [place] [address] 66648- 2314 Sep, [place] [address] [place] [id number] [place] [address] 19864- 6424 Sep, Encounter for test, result unknown Z32.00 [place] [address] 34194- 5731 Aug, Anxiety disorder, unspecified F41.9 [place] [address] [place] [id number] [place] [address] 11891- 7119 Jul, Suppurative hidradenitis L73.2 ; Metabolic syndrome E88.81 ; BMI 40.0-44.9, adult Z68.41 and High risk sexual behavior Z72.51 [place] [address] [place] [id number] [place] [address] 97307- 4247 Jul, Anxiety disorder, unspecified F41.9 [place] [address] [place] [id number] [place] [address] 34347- 9351 June, Anxiety disorder, unspecified F41.9 ; Attention deficit hyperactivity disorder F90.9 and Bipolar disorder, unspecified F31.9 [place] [address] [place] [id number] [place] [address] 59964- 4477 June, Attention deficit hyperactivity disorder F90.9 [place] [address] [place] [id number] [place] [address] 75644- 2722 May, Attention deficit hyperactivity disorder F90.9 [place] [address] [place] [id number] [place] [address] 60517- 3342 Apr, Attention deficit hyperactivity disorder F90.9 [place] [address] [place] [id number] [place] [address] 32923- 4540 14 Mar, 2016 Abscess L02.91 and Screening for STD sexually transmitted disease Z11.3 [place] [address] [place] [id number] [place] [address] 54864- 0436 Mar, Attention deficit hyperactivity disorder F90.9 [facility] [address] [place] [address] 67162- 6248 Feb, Attention deficit hyperactivity disorder F90.9 [facility] [address] [place] [id number] [place] [address] 48319- 4262 Feb, Attention deficit disorder of adult F98.8 and DMDD ( disruptive mood dysregulation disorder) F34.81 [place] [address] [place] [id number] [place] [address] 79703- 4203 Jan, Exposure to sexually transmitted disease (STD) Z20.2 and Metabolic syndrome E88.81 [place] [id number] [place] [address] 54134- 3960 Jan, Possible exposure to STD Z20.2 ; BMI 40.0-44.9, adult Z68.41 ; Metabolic syndrome E88.81 ; Elevated fasting glucose R73.01 and Hypertriglyceridemia E78.1 [place] [address] [place] [address] 46619- 1357 Jan, Possible exposure to STD Z20.2 ; Lumbago with sciatica, left side M54.42 ; Lumbago with sciatica, right side M54.41 ; BMI 40.0-44.9, adult Z68.41 ; Metabolic syndrome E88.81 ; Elevated fasting glucose R73.01 ; Hypertriglyceridemia E78.1 and Suppurative hidradenitis L73.2 [place] [address] [place] [address] 04330- 9420 Dec, Attention deficit hyperactivity disorder F90.9 [place] [address] [place] [address] 13849- 8853 Dec, [place] [address] [place] [id number] [place] [address] 43288- 7219 Nov, [place] [address] [place] [id number] [place] [address] 06798- 8445 Nov, [place] [address] [place] [address]- 7524 Nov, [place] [address] [place] [id number] [place] [address] 06145- 2553 Nov, [place] [address] [place] [id number] [place] [address] 91169- 8299 30 Oct, 2015 Other chronic pain G89.29 and Lumbago with sciatica, left side M54.42 [place] [address] [place] [id number] [place] [address] 79153- 2073 22 Oct, 2015 Lumbago with sciatica, left side M54.42 ; Lumbago with sciatica, right side M54.41 ; Other chronic pain G89.29 and Suppurative hidradenitis L73.2 [place] [address] [place] [id number] [place] [address] 73348- 6756 Oct, [place] [address] [place] [id number] [place] [address] 79001- 9610 Sep, [place] [address] [place] [id number] [place] [address] 42562- 0543 Sep, Unprotected sexual intercourse Z72.51 ; Hidradenitis suppurativa L73.2 ; Elevated fasting glucose R73.01 ; BMI 40.0-44.9, adult Z68.41 and Irregular menses N92.6 [place] [address] [place] [id number] [place] [address] 00289- 2978 Aug, [place] [address] [place] [id number] [place] [address] 27846- 2932 24 Jul, 2015 Routine health maintenance Z00.00 ; Abscess L02.91 ; H/O hidradenitis suppurativa Z87.2 ; Irregular menses N92.6 ; BMI 40.0-44.9, adult Z68.41 ; Elevated fasting glucose R73.01 and Hypertriglyceridemia E78.1 [place] [address] [place] [address] 82115- 7549 Jul, [facility] [address] [address] -2852 08 Jul, 2015 Hidradenitis suppurativa L73.2 [facility] [address], [place] [address]- 4164 Jul, Bipolar disorder, unspecified F31.9 ; Anxiety disorder, unspecified F41.9 and Attention deficit hyperactivity disorder F90.9 [place] [address] [address]- 4652 June, [place] [address] [place] [id number] [place] [address] 28434- 9531 June, [place] [address] [place] [id number] [place] [address] 24287- 4293 May, [place] [address] [address]- 5244 Apr, [place] [address] [place] [address] 15218- 4456 Apr, Well woman exam Z01.419 ; BMI 40.0-44.9, adult Z68.41 ; Tobacco use Z72.0 ; Family history of diabetes mellitus Z83.3 ; Hidradenitis suppurativa L73.2 ; Routine screening for STI (sexually transmitted infection) Z11.3 ; Unprotected sexual intercourse Z72.51 and Family history of breast cancer Z80.3 [place] [address], [place] [address]- 2224 Apr, Bipolar disorder, unspecified F31.9 ; Anxiety disorder, unspecified F41.9 and Attention deficit hyperactivity disorder F90.9 [place] [address] [address]- 7162 Mar, [facility] [address], [place] [address]- 4587 Feb, [place] [address] [place] [id number] [address]- 1928 Feb, [place] [address] [place] [address] 59893- 0665 Jan, Encounter for test, result negative Z32.02 and BMI 40.0-44.9, adult Z68.41 [place] [address] [place] [id number] [place] [address] 22011- 7053 Jan, Bipolar disorder, unspecified F31.9 ; Anxiety disorder, unspecified F41.9 and Attn-defct hyperactivity disorder, predom inattentive type F90.0 [place] [address] [place] [id number] [place] [address] 28574- 7279 Jan, [place] [address] 90761- 0905 Dec, [place] [address] [place] [id number] [place] [address] 95674- 4154 Dec, Bipolar disorder, unspecified F31.9 ; Attention deficit hyperactivity disorder F90.9 and Anxiety disorder, unspecified F41.9 [place] [address] [place] [id number] [place] [address] 19432- 9377 Nov, Irregular menses N92.6 ; Unprotected sexual intercourse Z72.51 ; Screening for STD sexually transmitted disease Z11.3 ; General counseling and advice for contraceptive management Z30.09 ; Oral contraceptive pill surveillance Z30.41 ; BMI 40.0-44.9, adult Z68.41 and H/O hidradenitis suppurativa Z87.2 [facility] [address] [place] [address] [id number] Sep, Dental examination V72.2 [place] [address] [place] [id number] [place] [address] 19556- 8251 Sep, Screen for STD (sexually transmitted disease) V74.5 and General counseling on prescription of oral contraceptives V25.01 [place] [address] [place] [id number] [place] [address] 04160- 5474 May, [place] [address] [place] [id number] [place] [address] 15480- 0131 May, [facility] [place] [facility] [address] [id number] [place] [address]- 2832 Apr, [facility] [place] [facility] [address] [address] [facility] [id number] [place] [address]- 5987 Apr, [facility] [place] [facility] [address] [facility] [id number] [place] [address]- 5706 Apr, [facility] [place] [facility] [address] [facility] [id number] [place] [address]- 3801 Apr, [facility] [place] [facility] [address] [facility] [id number] [place] [address]- 2858 Apr, [facility] [place] [facility] [address] [facility] [id number] [place] [address]- 4915 Apr, [facility] [place] [facility] [address] [id number] [place] [address]- 3632 Apr, [facility] [place] [facility] [address] [facility] [id number] [place] [address]- 4814 Mar, [facility] [place] [facility] [id number] [place] [address]- 8090 Mar, 2014 [facility] [place] [facility] [address] [facility] [id number] [place] [address]- 6419 Mar, 2014 [facility] [place] [facility] [id number] [place] [address]- 2654 Mar, 2014 [facility] [place] [facility] [address] [address] [facility] [id number] [address]- 8741 Mar, 2014 [facility] [place] [facility] [address] [facility] [id number] [place] 0928 Mar, 2014 [facility] [place] [facility] [address] [facility] [id number] [place] [address]- 6399 Jan, [facility] [place] [facility] [address] [address] [facility] [id number], [place] [address]- 7265 Jan, [facility] [place] [facility] [address] [id number] [place] [address]- 1526 Dec, [facility] [place] [facility] [address] [id number] [place] [address]- 5174 Dec, [facility] [place] [facility] [address] [id number] [place] [address]- 1442 Dec, [facility] [place] [facility] [address] [id number] [place] [address]- 7819 Dec, [facility] [place] [facility] [address] [id number] [place] [address]- 8913 Sep, [facility] [place] [facility] [address] [id number] [place] [address] Sep, [facility] [place] [facility] [address] [id number] [place] [address] Apr, [facility] [place] [facility] [address] [id number] [place] [address] Apr, [facility] [place] [facility] [address] [id number] [place] [address] Mar, [facility] [place] [facility] [address] [id number] [place] [address] Mar, [facility] [place] [facility] [address] [id number] [place] [address] Mar, [facility] [place] [facility] [address] [id number], [place] [address] Mar, [facility] [place] [facility] [address] [id number] [place] [address] Jan, [facility] [place] [facility] [address] [id number] [place] [address] Jan, [facility] [place] [facility] [address] [id number] [place] [address] Dec, [facility] [place] [facility] [address] [id number], [place] [address] Dec, [facility] [address] [facility] [id number] [place] [address] Dec, IMMUNIZATIONS No Known Immunizations SOCIAL HISTORY [...]
--- OUTSIDE RECORDS SUMMARY | 2017-09-24 22:43 | XMS REPORT ---
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 Active [id number] Problem Anxiety disorder, unspecified F41.9 Active 542739872 Problem Lesion of sciatic nerve, left lower limb G57.02 Active 977617762842727 Problem Abdominal pannus E65 Active 3650525623212 Problem Obesity during in third trimester O99.213 Active 667963184 Problem Post depression F53 Active 81528029 Problem Gestational diabetes mellitus (GDM) in third trimester, gestational diabetes method of control unspecified O24.419 Active 35029773 Problem Lumbago with sciatica, left side M54.42 Active 653560632 Problem Lumbago with sciatica, right side M54.41 Active 464237076 Problem Bipolar disorder, unspecified F31.9 Active 89700894 Problem Hypertriglyceridemia E78.1 Active 829621623 Problem Attention deficit hyperactivity disorder F90.9 Active 466491792 Problem Metabolic syndrome E88.81 Active 167187638 Problem Other chronic pain G89.29 Active 82943284 Problem Obesity affecting in second trimester O99.212 Active 264991241813 Problem Suppurative hidradenitis L73.2 Active 75215214 Problem Gastro-esophageal reflux disease without esophagitis K21.9 Active 734637681 ALLERGIES Substance Reaction Event Type Date Status Bees anaphylaxis Non Drug Allergy Mar, Active ENCOUNTERS Encounter Location Date Diagnosis [place] [id number], [place] [address] Oct, [place] [address] [place] [id number] [place] [address] 21134- 2263 Jul, Bipolar disorder, unspecified F31.9 [place] [address] [place] [id number] [place] [address] 74458- 3426 Jul, Bipolar disorder, unspecified F31.9 ; Attention deficit hyperactivity disorder F90.9 and BMI 50.0-59.9, adult Z68.43 [place] [address], [place] [address] 14 Jul, 2017 Somatic dysfunction of pelvis region M99.05 ; Somatic dysfunction of sacral region M99.04 ; Somatic dysfunction of lumbar region M99.03 ; Lesion of sciatic nerve, left lower limb G57.02 ; Lesion of sciatic nerve, 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 and BMI 50.0-59.9, adult Z68.43 [place] [address], [place] [address] June, [place] [address] [place] [id number] [place] [address] 10402- 3085 June, Bipolar disorder, unspecified F31.9 ; Attention deficit hyperactivity disorder F90.9 ; High risk medication use Z79.899 and BMI 50.0- 59.9, adult Z68.43 [place] [address], [place] [address] June, [place] [address] [place] [address] 44656- 4162 June, Hidradenitis suppurativa L73.2 and BMI 50.0-59.9, adult Z68.43 [place] [address], [place] [address] 0[address] June, Bipolar disorder, unspecified F31.9 and BMI 50.0-59.9, adult Z68.43 [place] [address] [place] [id number] [place] [address] 60743- 2685 May, [place] [address] [address]- [address] May, Lumbago with sciatica, left side M54.42 ; care and examination Z39.2 ; Lumbago with sciatica, right side M54.41 ; Other chronic pain G89.29 ; BMI 50.0-59.9, adult Z68.43 ; Abdominal pannus E65 ; Suppurative hidradenitis L73.2 and Post depression F53 [place] [address] [address]- 1467 Apr, [place] [address] 14276- 5551 Apr, Abdominal pannus E65 and BMI 45.0-49.9, adult Z68.42 [place] [address] 28733- 7477 Apr, Screening for iron deficiency anemia Z13.0 [place] [address] 17808- 2021 15 Apr, 2017 Bipolar disorder, unspecified F31.9 [place] [address] [place] [id number] [place] [address] 63926- 2604 07 Apr, 2017 Obesity during in third trimester O99.213 ; Third trimester Z34.93 ; Gestational diabetes mellitus (GDM) in third trimester controlled on oral hypoglycemic drug O24.415 ; 37 weeks gestation of Z3A.37 and Oligohydramnios in third trimester, single or unspecified fetus O41.03X0 [place] [address] [address]- 3930 Mar, Third trimester Z34.93 [place] [address] [place] [id number] [place] [address] 05528- 2026 Mar, Gestational diabetes mellitus (GDM) in third trimester controlled on oral hypoglycemic drug O24.415 [place] [address] [place] [address] 62277- 4296 Mar, [place] [address] [place] [id number] [place] [address] 48393- 7653 22 Mar, 2017 Third trimester Z34.93 ; Gestational diabetes mellitus (GDM) in third trimester controlled on oral hypoglycemic drug O24.415 and 35 weeks gestation of Z3A.35 [place] [address] 07138- 0220 15 Mar, 2017 BMI 50.0-59.9, adult Z68.43 and Bipolar disorder, unspecified F31.9 [place] [address] [place] [id number] [place] [address] 56981- 1254 13 Mar, 2017 Diet controlled gestational diabetes mellitus (GDM), antepartum O24.410 [place] [address] [place] [id number] [place] [address] 14787- 2310 07 Mar, 2017 33 weeks gestation of Z3A.33 ; Gestational diabetes mellitus (GDM) in third trimester controlled on oral hypoglycemic drug O24.415 ; Third trimester Z34.93 and Obesity affecting in third trimester O99.213 [place] [address] [place] [id number] [place] [address] 52083- 5269 01 Mar, 2017 [place] [address] [place] [id number] [place] [address] 77669- 8534 Feb, Third trimester Z34.93 ; Encounter for immunization Z23 ; Gestational diabetes mellitus (GDM) in third trimester controlled on oral hypoglycemic drug O24.415 ; Obesity during in third trimester O99.213 and 31 weeks gestation of Z3A.31 [place] [address] [place] [id number] [place] [address] 79504- 4776 Feb, [place] [address] [place] [id number] [place] [address] 49656- 7386 Feb, Gestational diabetes mellitus (GDM) in third trimester, gestational diabetes method of control unspecified O24.419 [place] [address] [place] [id number] [place] [address] 37077- 2974 Feb, [place] [address] [place] [id number] [place] [address] 59953- 4111 Feb, [place] [address] [place] [id number] [place] [address] 79143- 0439 Feb, Bipolar disorder, unspecified F31.9 and BMI 50.0-59.9, adult Z68.43 [place] [address] [place] [id number] [place] [address] 94294- 8091 10 Feb, 2017 29 weeks gestation of Z3A.29 ; Gestational diabetes mellitus (GDM) in third trimester, gestational diabetes method of control unspecified O24.419 ; Third trimester Z34.93 ; Obesity affecting in third trimester O99.213 and BMI 50.0-59.9, adult Z68.43 [place] [id number] [place] [address] 90091- 9962 15 Jan, 2017 Abnormal glucose tolerance test (GTT) R73.02 [facility] [id number] [place] [address] [phone] 15 Jan, 2017 Dental examination Z01.20 [place] [id number] [place] [address] 37153- 0363 14 Jan, 2017 Bipolar disorder, unspecified F31.[address] [place] [address] 45989- 5534 12 Jan, 2017 25 weeks gestation of Z3A.25 ; Second trimester Z34.92 ; Gastro-esophageal reflux disease without esophagitis K21.9 ; Diseases of the digestive system complicating , second trimester O99.612 ; Abnormal ultrasonic finding on screening of mother O28.3 and BMI 50.0-59.9, adult Z68.43 [place] [address] [place] [id number] [place] [address] 46048- 0412 05 Jan, 2017 [place] [address] [place] [id number] [place] [address] 53274- 2668 Dec, [facility] [address] [place] [address] 04579- 7484 14 Dec, 2016 Dental examination Z01.20 [facility] [address] [place] [id number] [place] [address] 80817- 8185 14 Dec, 2016 Second trimester Z34.92 ; 21 weeks gestation of Z3A.21 and Obesity affecting in second trimester O99.212 [facility] [address] [place] [id number] [place] [address] 31723- 5349 13 Dec, 2016 [facility] [address] [place] [id number] [place] [address] 97113- 4817 10 Dec, 2016 Lump of right breast N63.10 ; Abscess of left thigh L02.416 and BMI 45.0-49.9, adult Z68.42 [facility] [address] [id number] [place] [address] [phone] 10 Dec, 2016 Dental examination Z01.20 [facility] [address] [place] [id number] [place] [address] 26370- 2646 08 Dec, 2016 [facility] [address] [place] [id number] [place] [address] 67601- 7992 07 Dec, 2016 Bipolar disorder, unspecified F31.9 [facility] [address] [place] [id number] [place] [address] 84277- 5031 24 Nov, 2016 [facility] [address] [place] [id number] [place] [address] 20146- 4659 Nov, [facility] [address] [place] [id number] [place] [address] 41543- 3474 Nov, 17 weeks gestation of Z3A.17 and Right non- suppurative otitis media H65.91 [facility] [address] [place] [id number] [place] [address] 25634- 3957 16 Nov, 2016 [facility] [address] [place] [id number] [place] [address] 83721- 4633 Nov, [facility] [id number] [place] [address] 74927- 4959 11 Nov, 2016 Bipolar disorder, unspecified F31.9 [facility] [id number] [place] [address] 28476- 9149 10 Nov, 2016 16 weeks gestation of Z3A.16 ; Second trimester Z34.92 and Obesity affecting in second trimester O99.212 [facility] [address] [id number] 03 Nov, 2016 Encounter for dental examination Z01.20 [facility] [address] [place] [address] 89084- 3544 13 Oct, 2016 [facility] [address] [place] [id number] [place] [address] 27151- 9134 12 Oct, 2016 12 weeks gestation of Z3A.12 ; First trimester Z34.90 and Obesity affecting in first trimester O99.211 [facility] [address] [place] [id number] [place] [address] 61824- 1101 Sep, [facility] [address] [place] [id number] [place] [address] 55897- 3113 Sep, [facility] [id number] [place] [address] 42731- 2204 Sep, Bipolar disorder, unspecified F31.9 [facility] [address], [place] [address]- 9076 Sep, [facility] [id number] [place] [address] 00875- 5824 Sep, [facility] [id number] [place] [address] 89255- 8677 Sep, Normal , first Z34.00 [facility] [address] [place] [id number] [place] [address] 41402- 2975 15 Sep, 2016 Normal , first Z34.00 ; 8 weeks gestation of Z3A.08 and Obesity affecting in first trimester O99.211 [facility] [address] [place] [id number] [place] [address] 50538- 1890 Sep, Anxiety disorder, unspecified F41.9 [place] [address] [place] [id number] [place] [address] 85938- 2884 Sep, [place] [address] [place] [id number] [place] [address] 87892- 6233 Sep, Encounter for test, result unknown Z32.00 [place] [address] 67921- 6932 Aug, Anxiety disorder, unspecified F41.9 [place] [address] 85628- 3045 Jul, Suppurative hidradenitis L73.2 ; Metabolic syndrome E88.81 ; BMI 40.0-44.9, adult Z68.41 and High risk sexual behavior Z72.51 [place] [address] 28556- 7513 Jul, Anxiety disorder, unspecified F41.9 [place] [address] [place] [id number] [place] [address] 95386- 3280 June, Anxiety disorder, unspecified F41.9 ; Attention deficit hyperactivity disorder F90.9 and Bipolar disorder, unspecified F31.9 [place] [address] [place] [id number] [place] [address] 99566- 8540 June, Attention deficit hyperactivity disorder F90.9 [place] [address] [place] [id number] [place] [address] 35555- 0906 May, Attention deficit hyperactivity disorder F90.9 [place] [address] [place] [id number] [place] [address] 25119- 1389 Apr, Attention deficit hyperactivity disorder F90.9 [place] [address] [place] [id number] [place] [address] 64720- 4001 14 Mar, 2016 Abscess L02.91 and Screening for STD sexually transmitted disease Z11.3 [place] [address] [place] [address]- 8682 Mar, Attention deficit hyperactivity disorder F90.9 [place] [address] [place] [id number] [place] [address] 65264- 4767 Feb, Attention deficit hyperactivity disorder F90.9 [place] [address] [place] [id number] [place] [address] 07132- 3079 Feb, Attention deficit disorder of adult F98.8 and DMDD ( disruptive mood dysregulation disorder) F34.81 [place] [address] [place] [id number] [place] [address] 77558- 3244 Jan, Exposure to sexually transmitted disease (STD) Z20.2 and Metabolic syndrome E88.81 [place] [address] [place] [id number] [place] [address] 17977- 5001 Jan, Possible exposure to STD Z20.2 ; BMI 40.0-44.9, adult Z68.41 ; Metabolic syndrome E88.81 ; Elevated fasting glucose R73.01 and Hypertriglyceridemia E78.1 [place] [address] [place] [address] [place] [address] 17819- 9818 Jan, Possible exposure to STD Z20.2 ; Lumbago with sciatica, left side M54.42 ; Lumbago with sciatica, right side M54.41 ; BMI 40.0-44.9, adult Z68.41 ; Metabolic syndrome E88.81 ; Elevated fasting glucose R73.01 ; Hypertriglyceridemia E78.1 and Suppurative hidradenitis L73.2 [place] [address] [place] [address] 17015- 1157 Dec, Attention deficit hyperactivity disorder F90.9 [place] [address] [place] [id number] [place] [address] 68705- 2218 Dec, [place] [address] [place] [address] [address] [place] [address] 74615- 5416 Nov, [place] [address] [place] [id number] [place] [address] 56009- 0773 Nov, [place] [address], [place] [address]- 1796 Nov, [place] [address] [place] [id number] [place] [address] 58721- 6335 Nov, [place] [address] [place] [id number] [place] [address] 77629- 9537 Oct, Other chronic pain G89.29 and Lumbago with sciatica, left side M54.42 [place] [address] [place] [address] [place] [address] 62714- 6882 22 Oct, 2015 Lumbago with sciatica, left side M54.42 ; Lumbago with sciatica, right side M54.41 ; Other chronic pain G89.29 and Suppurative hidradenitis L73.2 [place] [address] [place] [id number] [place] [address] 65326- 0377 Oct, [place] [address] [place] [address] [place] [address] 97757- 4136 Sep, [place] [address] [place] [address] [place] [address] 38365- 0962 Sep, Unprotected sexual intercourse Z72.51 ; Hidradenitis suppurativa L73.2 ; Elevated fasting glucose R73.01 ; BMI 40.0-44.9, adult Z68.41 and Irregular menses N92.6 [place] [address] [place] [address] [place] [address] 67578- 2767 Aug, [place] [address] [place] [address] 00269- 9999 Jul, Routine health maintenance Z00.00 ; Abscess L02.91 ; H/O hidradenitis suppurativa Z87.2 ; Irregular menses N92.6 ; BMI 40.0-44.9, adult Z68.41 ; Elevated fasting glucose R73.01 and Hypertriglyceridemia E78.1 [place] [address] [place] [id number] [place] [address] 47154- 9417 Jul, [facility] [address], [place] [address] -6500 Jul, Hidradenitis suppurativa L73.2 [facility] [address], [place] [address]- 0174 Jul, Bipolar disorder, unspecified F31.9 ; Anxiety disorder, unspecified F41.9 and Attention deficit hyperactivity disorder F90.9 [facility] [address], [place] [address]- 0900 June, [place] [address] [place] [address] 71186- 1168 June, [facility] [address] [place] [id number] [place] [address] 12858- 6650 May, [place] [address] [place] [address] [id number] [place] [address] 43994- 4414 Apr, [facility] [address] [place] [address] 76881- 1254 Apr, Well woman exam Z01.419 ; BMI 40.0-44.9, adult Z68.41 ; Tobacco use Z72.0 ; Family history of diabetes mellitus Z83.3 ; Hidradenitis suppurativa L73.2 ; Routine screening for STI (sexually transmitted infection) Z11.3 ; Unprotected sexual intercourse Z72.51 and Family history of breast cancer Z80.3 [facility] [address], [place] [address]- 9699 Apr, Bipolar disorder, unspecified F31.9 ; Anxiety disorder, unspecified F41.9 and Attention deficit hyperactivity disorder F90.9 [facility] [address], [place] [address]- 6847 Mar, [facility] [address], [place] [address]- 2100 Feb, [facility] [address] [place] [address] 79989- 1675 Feb, [facility] [address] [place] [address] 93207- 7567 Jan, Encounter for test, result negative Z32.02 and BMI 40.0-44.9, adult Z68.41 [place] [address] [id number] [place] [address] 86445- 9194 Jan, Bipolar disorder, unspecified F31.9 ; Anxiety disorder, unspecified F41.9 and Attn-defct hyperactivity disorder, predom inattentive type F90.0 [place] [address] [id number] [place] [address] 41846- 0040 Jan, [place] [address] [id number] [place] [address] 23304- 4928 Dec, [place] [address] [id number] [place] [address] 96274- 8357 Dec, Bipolar disorder, unspecified F31.9 ; Attention deficit hyperactivity disorder F90.9 and Anxiety disorder, unspecified F41.9 [place] [address] [place] [address] 88176- 1256 Nov, Irregular menses N92.6 ; Unprotected sexual intercourse Z72.51 ; Screening for STD sexually transmitted disease Z11.3 ; General counseling and advice for contraceptive management Z30.09 ; Oral contraceptive pill surveillance Z30.41 ; BMI 40.0-44.9, adult Z68.41 and H/O hidradenitis suppurativa Z87.2 [facility] [id number] [place] [address] [id number] Sep, Dental examination V72.2 [place] [id number] [place] [address] 40511- 0335 Sep, Screen for STD (sexually transmitted disease) V74.5 and General counseling on prescription of oral contraceptives V25.01 [place] [address] [place] [address] 80133- 3756 May, [facility] [place] [facility] [address] [id number] [place] [address]- 8737 May, [facility] [place] [facility] [address] [id number] [place] [address]- 2633 Apr, [facility] [place] [facility] [address] [id number] [place] [address]- 7156 Apr, [facility] [place] [facility] [address] [id number] [place] [address]- 7165 Apr, [facility] [place] [facility] [address] [id number] [place] [address]- 9097 Apr, [facility] [place] [facility] [address] [id number] [place] [address]- 4074 Apr, [facility] [place] [facility] [address] [facility] [id number] [place] [address]- 9768 Apr, [facility] [place] [facility] [address] [id number] [place] [address]- 8993 Apr, [facility] [place] [facility] [address] [id number] [place] [address]- 6369 Mar, [facility] [place] [facility] [address] [facility] [id number] [place] [address]- 4230 Mar, [facility] [place] [facility] [address] [facility] [id number] [place] [address]- 3481 Mar, [facility] [place] [facility] [address] [id number] [place] [address]- 1111 Mar, [facility] [place] [facility] [address] [id number] [place] [address]- 2544 Mar, [facility] [place] [facility] [address] [id number] [place] [address]- 8946 Mar, [facility] [place] [facility] [address] [facility] [id number] [place] [address]- 5131 Jan, [facility] [place] [facility] [address] [id number] [place] [address]- 7081 Jan, [facility] [place] [facility] [address] [id number] [place] [address]- 0925 Dec, [facility] [place] [facility] [address] [id number] [place] [address]- 7402 Dec, [facility] [place] [facility] [address] [id number] [place] [address] Dec, [facility] [place] [facility] [address] [id number] [place] [address] Dec, [facility] [place] [facility] [address] [id number] [place] [address] Sep, [facility] [place] [facility] [address] [id number] [place] [address] Sep, [facility] [place] [facility] [address] [id number] [place] [address] Apr, [facility] [place] [facility] [address] [id number] [place] [address] Apr, [facility] [place] [facility] [address] [id number] [place] [address] Mar, [facility] [place] [facility] [address] [id number] [place] [address] Mar, [facility] [place] [facility] [address] [id number] [place] [address] Mar, [facility] [place] [facility] [address] [id number] [place] [address] Mar, [facility] [place] [facility] [address] [id number] [place] [address] Jan, [facility] [place] [facility] [address] [id number] [place] [address] Jan, [facility] [place] [facility] [address] [id number] [place] [address] Dec, [facility] [address] [facility] [id number] [place] [address] Dec, [facility] [address] [facility] [id number] [address] Dec, IMMUNIZATIONS No Known Immunizations SOCIAL HISTORY Never Assessed REASON FOR VISIT OB 1 wk f/u--tjanssenMA, --since increasing metformin her numbers are staying low., --skin irriation on abdomin that comes and goes. PLAN OF CARE Activity Details Follow Up 1 Week Reason: VITAL SIGNS Height 64 in 2017-04-12 Weight 302.5 lbs 2017-04-12 Temperature 98.2 degrees Fahrenheit 2017-04-12 Heart Rate 90 bpm 2017-04-12 Respiratory Rate 20 2017-04-12 BMI 51.924 kg/m2 2017-04-12 Blood pressure systolic 106 mmHg 2017-04-12 Blood pressure diastolic 72 mmHg 2017-04-12 MEDICATIONS Medication Instructions Dosage Frequency Start Date End Date Duration Status Blood Glucose Test Strip test strips ONE TOUCH 4 times a day DX: O24.419 test blood sugar Feb, Active Metformin HCl 500 mg Orally Twice a day 2 tablets with breakfast, 1 tablet with dinner 12h Feb, Active Vitamins - (Dis) Active Ranitidine HCl 75 MG Orally Twice a day 1 tablet as needed 12h 12 Jan, 2017 Active Lancets - test blood sugar Feb, Active Blood Glucose Monitor System w/Device as directed Feb, Active RESULTS No Results PROCEDURES Procedure Date Ordered Result Body Site URINE-NO MICRO Apr 12, 2017 LAB NOT BILLED BY [facility] Apr 12, 2017 INSTRUCTIONS MEDICATIONS ADMINISTERED No Known Medications MEDICAL (GENERAL) HISTORY Type Description Date Medical History Hidradenitis Supprativa Medical History Bipolar Disorder Medical History ADHD Surgical History pilonidal cyst removal tailbone Surgical History 2018 Hospitalization History Dehydration & concussion 07/23/2016 Hospitalization History child 2018
--- OUTSIDE RECORDS SUMMARY | 2017-09-24 22:43 | XMS REPORT ---
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 Active 31819317968327433 Problem Anxiety disorder, unspecified F41.9 Active 095660085 Problem Lesion of sciatic nerve, left lower limb G57.02 Active 960889277612416 Problem Abdominal pannus E65 Active 0765433376275 Problem Obesity during in third trimester O99.213 Active 252397561 Problem Post depression F53 Active 76087486 Problem Gestational diabetes mellitus (GDM) in third trimester, gestational diabetes method of control unspecified O24.419 Active 32330928 Problem Lumbago with sciatica, left side M54.42 Active 908671557 Problem Lumbago with sciatica, right side M54.41 Active 084698505 Problem Bipolar disorder, unspecified F31.9 Active 49073725 Problem Hypertriglyceridemia E78.1 Active 523116836 Problem Attention deficit hyperactivity disorder F90.9 Active 077372135 Problem Metabolic syndrome E88.81 Active 678302262 Problem Other chronic pain G89.29 Active 33978543 Problem Obesity affecting in second trimester O99.212 Active 226060927217 Problem Suppurative hidradenitis L73.2 Active 70780733 Problem Gastro-esophageal reflux disease without esophagitis K21.9 Active 662456945 ALLERGIES No Information ENCOUNTERS Encounter Location Date Diagnosis [facility] [address] [facility] [id number] [address] Oct, [place] [id number] [place] [address] 60399- 5101 Jul, Bipolar disorder, unspecified F31.9 [place] [id number] [place] [address] 13880- 7927 Jul, Bipolar disorder, unspecified F31.9 ; Attention deficit hyperactivity disorder F90.9 and BMI 50.0-59.9, adult Z68.43 [place] [id number] [place] [address] 16639- 3239 Jul, Somatic dysfunction of pelvis region M99.05 ; Somatic dysfunction of sacral region M99.04 ; Somatic dysfunction of lumbar region M99.03 ; Lesion of sciatic nerve, left lower limb G57.02 ; Lesion of sciatic nerve, 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9, adult Z68.43 [place] [address] [place] [address] 66162- 2847 June, Bipolar disorder, unspecified F31.9 and BMI 50.0-59.9, adult Z68.43 [place] [id number] [place] [address] 19703- 2465 May, [place] [id number] [place] [address] 70078- 8785 May, Lumbago with sciatica, left side M54.42 ; care and examination Z39.2 ; Lumbago with sciatica, right side M54.41 ; Other chronic pain G89.29 ; BMI 50.0-59.9, adult Z68.43 ; Abdominal pannus E65 ; Suppurative hidradenitis L73.2 and Post depression F53 [place] [id number] [place] [address] 44886- 1632 Apr, [place] [address] 52615- 3572 Apr, Abdominal pannus E65 and BMI 45.0-49.9, adult Z68.42 [place] [address] 05042- 8235 Apr, Screening for iron deficiency anemia Z13.0 [place] [id number] [place] [address] 32096- 1671 15 Apr, 2017 Bipolar disorder, unspecified F31.9 [place] [id number] [place] [address] 68066- 1423 07 Apr, 2017 Obesity during in third trimester O99.213 ; Third trimester Z34.93 ; Gestational diabetes mellitus (GDM) in third trimester controlled on oral hypoglycemic drug O24.415 ; 37 weeks gestation of Z3A.37 and Oligohydramnios in third trimester, single or unspecified fetus O41.03X0 [place] [id number] [place] [address] 76008- 5871 Mar, Third trimester Z34.93 [place] [id number] [place] [address] 85493- 7411 26 Mar, 2017 Gestational diabetes mellitus (GDM) in third trimester controlled on oral hypoglycemic drug O24.415 [place] [address] [place] [address]- 4435 Mar, [place] [id number] [place] [address] 00587- 4356 Mar, Third trimester Z34.93 ; Gestational diabetes mellitus (GDM) in third trimester controlled on oral hypoglycemic drug O24.415 and 35 weeks gestation of Z3A.35 [place] [address] 85004- 1063 15 Mar, 2017 BMI 50.0-59.9, adult Z68.43 and Bipolar disorder, unspecified F31.9 [place] [address] 52111- 2203 13 Mar, 2017 Diet controlled gestational diabetes mellitus (GDM), antepartum O24.410 [place] [id number] [place] [address] 34892- 4759 07 Mar, 2017 33 weeks gestation of Z3A.33 ; Gestational diabetes mellitus (GDM) in third trimester controlled on oral hypoglycemic drug O24.415 ; Third trimester Z34.93 and Obesity affecting in third trimester O99.213 [place] [id number] [place] [address] 22008- 0828 Mar, [place] [id number] [place] [address] 01864- 7752 Feb, Third trimester Z34.93 ; Encounter for immunization Z23 ; Gestational diabetes mellitus (GDM) in third trimester controlled on oral hypoglycemic drug O24.415 ; Obesity during in third trimester O99.213 and 31 weeks gestation of Z3A.31 [place] [id number] [place] [address] 74544- 6289 Feb, [place] [address] 52058- 8811 Feb, Gestational diabetes mellitus (GDM) in third trimester, gestational diabetes method of control unspecified O24.419 [place] [address] 79986- 5965 Feb, [place] [id number] [place] [address] 91527- 6208 Feb, [place] [address] 10504- 6900 Feb, Bipolar disorder, unspecified F31.9 and BMI 50.0-59.9, adult Z68.43 [place] [address] 26599- 9735 10 Feb, 2017 29 weeks gestation of Z3A.29 ; Gestational diabetes mellitus (GDM) in third trimester, gestational diabetes method of control unspecified O24.419 ; Third trimester Z34.93 ; Obesity affecting in third trimester O99.213 and BMI 50.0-59.9, adult Z68.43 [place] [address] 24914- 8611 15 Jan, 2017 Abnormal glucose tolerance test (GTT) R73.02 [facility] [address] [id number] 15 Jan, 2017 Dental examination Z01.[address] [address]28- 1990 14 Jan, 2017 Bipolar disorder, unspecified F31.9 [place] [id number] [place] [address] 61740- 5373 12 Jan, 2017 25 weeks gestation of Z3A.25 ; Second trimester Z34.92 ; Gastro-esophageal reflux disease without esophagitis K21.9 ; Diseases of the digestive system complicating , second trimester O99.612 ; Abnormal ultrasonic finding on screening of mother O28.3 and BMI 50.0-59.9, adult Z68.[address] 09669- 8607 05 Jan, 2017 [place] [address] 81950- 4808 Dec, [address] 01136- 6126 Dec, Dental examination Z01.20 [facility] [id number] [place] [address] 69218- 3659 14 Dec, 2016 Second trimester Z34.92 ; 21 weeks gestation of Z3A.21 and Obesity affecting in second trimester O99.212 [facility] [id number] [place] [address] 56372- 3688 Dec, [facility] [id number] [place] [address] 88142- 2913 Dec, Lump of right breast N63.10 ; Abscess of left thigh L02.416 and BMI 45.0-49.9, adult Z68.42 [facility] [id number] [place] [address] [id number] 10 Dec, 2016 Dental examination Z01.20 [facility] [id number] [place] [address] 63704- 0506 08 Dec, 2016 [facility] [id number] [place] [address] 65812- 7123 Dec, Bipolar disorder, unspecified F31.9 [facility] [id number] [place] [address] 23692- 0875 24 Nov, 2016 [facility] [id number] [place] [address] 27868- 2018 Nov, [facility] [id number] [place] [address] 65516- 8323 Nov, 17 weeks gestation of Z3A.17 and Right non- suppurative otitis media H65.91 [facility] [id number] [place] [address] 38235- 1171 Nov, [facility] [id number] [place] [address] 24410- 7895 Nov, [facility] [id number] [place] [address] 81900- 3651 Nov, Bipolar disorder, unspecified F31.9 [facility] [address] [address]- 0572 10 Nov, 2016 16 weeks gestation of Z3A.16 ; Second trimester Z34.92 and Obesity affecting in second trimester O99.212 [facility] [id number] [address] 03 Nov, 2016 Encounter for dental examination Z01.20 [facility] [address] [address]- 2959 13 Oct, 2016 [facility] [address] [place] [address] 78651- 6677 12 Oct, 2016 12 weeks gestation of Z3A.12 ; First trimester Z34.90 and Obesity affecting in first trimester O99.211 [facility] [address] [address]- 7325 Sep, [facility] [address] [address]- 3361 Sep, [facility] [id number] [place] [address] 69468- 7485 Sep, Bipolar disorder, unspecified F31.9 [facility] [address], [place] [address]- 1160 Sep, [facility] [address] [address]- 4706 Sep, [facility] [address] [address]- 0697 Sep, Normal , first Z34.00 [facility] [id number] [place] [address] 46165- 2691 Sep, Normal , first Z34.00 ; 8 weeks gestation of Z3A.08 and Obesity affecting in first trimester O99.211 [facility] [address], [place] [address]- 7467 Sep, Anxiety disorder, unspecified F41.9 [place] [id number] [place] [address] 51050- 5162 Sep, [place] [id number] [place] [address] 48625- 7110 Sep, Encounter for test, result unknown Z32.00 [place] [address] 55911- 3390 Aug, Anxiety disorder, unspecified F41.9 [place] [id number] [place] [address] 50716- 7324 Jul, Suppurative hidradenitis L73.2 ; Metabolic syndrome E88.81 ; BMI 40.0-44.9, adult Z68.41 and High risk sexual behavior Z72.51 [place] [id number] [place] [address] 93725- 4758 Jul, Anxiety disorder, unspecified F41.9 [place] [id number] [place] [address] 54784- 7719 June, Anxiety disorder, unspecified F41.9 ; Attention deficit hyperactivity disorder F90.9 and Bipolar disorder, unspecified F31.9 [place] [id number] [place] [address] 85258- 3717 June, Attention deficit hyperactivity disorder F90.9 [place] [id number] [place] [address] 47511- 6349 May, Attention deficit hyperactivity disorder F90.9 [place] [id number] [place] [address] 43770- 5966 Apr, Attention deficit hyperactivity disorder F90.9 [place] [id number] [place] [address] 39627- 9245 14 Mar, 2016 Abscess L02.91 and Screening for STD sexually transmitted disease Z11.3 [place] [id number] [place] [address] 82380- 4476 Mar, Attention deficit hyperactivity disorder F90.9 [place] [address] [address]- 7614 Feb, Attention deficit hyperactivity disorder F90.9 [place] [id number] [place] [address] 48192- 3186 Feb, Attention deficit disorder of adult F98.8 and DMDD ( disruptive mood dysregulation disorder) F34.81 [place] [id number] [place] [address] 09881- 3335 Jan, Exposure to sexually transmitted disease (STD) Z20.2 and Metabolic syndrome E88.81 [place] [id number] [place] [address] 44706- 2282 Jan, Possible exposure to STD Z20.2 ; BMI 40.0-44.9, adult Z68.41 ; Metabolic syndrome E88.81 ; Elevated fasting glucose R73.01 and Hypertriglyceridemia E78.1 [place] [id number] [place] [address] 61931- 3994 Jan, Possible exposure to STD Z20.2 ; Lumbago with sciatica, left side M54.42 ; Lumbago with sciatica, right side M54.41 ; BMI 40.0-44.9, adult Z68.41 ; Metabolic syndrome E88.81 ; Elevated fasting glucose R73.01 ; Hypertriglyceridemia E78.1 and Suppurative hidradenitis L73.2 [place] [address] [place] [address] 18073- 7670 Dec, Attention deficit hyperactivity disorder F90.9 [place] [address] [address]- 2659 Dec, [place] [id number] [place] [address] 09373- 8664 Nov, [place] [id number] [place] [address] 61500- 2897 Nov, [place] [address] [place] [address]- 4701 Nov, [place] [id number] [place] [address] 66640- 8491 Nov, [place] [id number] [place] [address] 48086- 0313 30 Oct, 2015 Other chronic pain G89.29 and Lumbago with sciatica, left side M54.42 [place] [id number] [place] [address] 29877- 8144 22 Oct, 2015 Lumbago with sciatica, left side M54.42 ; Lumbago with sciatica, right side M54.41 ; Other chronic pain G89.29 and Suppurative hidradenitis L73.2 [place] [id number] [place] [address] 97558- 0400 Oct, [place] [id number] [place] [address] 67308- 5743 Sep, [place] [id number] [place] [address] 61821- 0166 Sep, Unprotected sexual intercourse Z72.51 ; Hidradenitis suppurativa L73.2 ; Elevated fasting glucose R73.01 ; BMI 40.0-44.9, adult Z68.41 and Irregular menses N92.6 [place] [address] [place] [address] 63564- 8915 Aug, [place] [id number] [place] [address] 57846- 3217 24 Jul, 2015 Routine health maintenance Z00.00 ; Abscess L02.91 ; H/O hidradenitis suppurativa Z87.2 ; Irregular menses N92.6 ; BMI 40.0-44.9, adult Z68.41 ; Elevated fasting glucose R73.01 and Hypertriglyceridemia E78.1 [place] [address] [place] [address] 77149- 4975 Jul, [facility] [id number] [address] -4180 Jul, Hidradenitis suppurativa L73.2 [facility] [address], [place] [address]- 1103 Jul, Bipolar disorder, unspecified F31.9 ; Anxiety disorder, unspecified F41.9 and Attention deficit hyperactivity disorder F90.9 [facility] [address], [place] [address]- 0703 June, [place] [address] [address]- 8571 June, [place] [id number] [place] [address] 93208- 1878 May, [place] [address] [address]- 2189 Apr, [place] [address] [place] [address] 71864- 6566 Apr, Well woman exam Z01.419 ; BMI 40.0-44.9, adult Z68.41 ; Tobacco use Z72.0 ; Family history of diabetes mellitus Z83.3 ; Hidradenitis suppurativa L73.2 ; Routine screening for STI (sexually transmitted infection) Z11.3 ; Unprotected sexual intercourse Z72.51 and Family history of breast cancer Z80.3 [facility] [address], [place] [address]- 8894 Apr, Bipolar disorder, unspecified F31.9 ; Anxiety disorder, unspecified F41.9 and Attention deficit hyperactivity disorder F90.9 [facility] [address], [place] [address]- 8278 Mar, [facility] [address], [place] [address]- 1976 Feb, [facility] [address], [place] [address]- 5320 Feb, [place] [address] [place] [address] 67610- 7663 Jan, Encounter for test, result negative Z32.02 and BMI 40.0-44.9, adult Z68.41 [place] [id number] [place] [address] 15882- 8851 Jan, Bipolar disorder, unspecified F31.9 ; Anxiety disorder, unspecified F41.9 and Attn-defct hyperactivity disorder, predom inattentive type F90.0 [place] [id number] [place] [address] 34079- 7403 Jan, [place] [address] 24823- 4572 Dec, [place] [id number] [place] [address] 16144- 7035 Dec, Bipolar disorder, unspecified F31.9 ; Attention deficit hyperactivity disorder F90.9 and Anxiety disorder, unspecified F41.9 [place] [id number] [place] [address] 30322- 8961 Nov, Irregular menses N92.6 ; Unprotected sexual intercourse Z72.51 ; Screening for STD sexually transmitted disease Z11.3 ; General counseling and advice for contraceptive management Z30.09 ; Oral contraceptive pill surveillance Z30.41 ; BMI 40.0-44.9, adult Z68.41 and H/O hidradenitis suppurativa Z87.2 [facility] [id number] [place] [address] [id number] Sep, Dental examination V72.2 [place] [id number] [place] [address] 88853- 7313 Sep, Screen for STD (sexually transmitted disease) V74.5 and General counseling on prescription of oral contraceptives V25.01 [place] [id number] [place] [address] 66173- 6728 May, [place] [address] 04538- 2731 May, [facility] [place] [facility] [address] [id number] [place] [address]- 2011 30 Apr, 2014 [facility] [place] [facility] [address] [facility] [id number] [place] [address]- 2810 30 Apr, 2014 [facility] [place] [facility] [address] [facility] [id number] [place] [address]- 9796 Apr, 2014 [facility] [place] [facility] [address] [facility] [id number] [place] [address]- 3892 10 Apr, 2014 [facility] [place] [facility] [address] [facility] [id number] [place] [address]- 9177 Apr, [facility] [place] [facility] [address] [facility] [id number] [place] [address]- 8089 Apr, [facility] [place] [facility] [address] [place] [address]- 7582 Apr, [facility] [place] [facility] [address] [facility] [id number] [place] [address]- 9631 Mar, 2014 [facility] [place] [facility] [id number] [place] [address]- 6011 Mar, 2014 [facility] [place] [facility] [id number] [place] [address]- 6594 Mar, 2014 [facility] [place] [facility] [address] [place] [address]- 1800 Mar, 2014 [facility] [place] [facility] [address] [facility] [id number] [place] [address]- 6907 Mar, 2014 [facility] [place] [facility] [address] [facility] [id number] [place] [address]- 8615 Mar, 2014 [facility] [place] [facility] [address] [facility] [id number] [place] [address]- 8466 Jan, [facility] [place] [facility] [id number] [place] [address]- 9193 Jan, [facility] [place] [facility] [address] [id number] [place] [address]- 4239 Dec, [facility] [place] [facility] [address] [id number] [place] [address]- 3057 Dec, [facility] [place] [facility] [address] [id number] [place] [address]- 6773 Dec, [facility] [place] [facility] [address] [id number] [place] [address]- 6179 Dec, [facility] [place] [facility] [address] [id number] [place] [address]- 4070 Sep, [facility] [place] [facility] [address] [id number] [place] [address]- 6628 Sep, [facility] [place] [facility] [address] [id number] [place] [address]- 1712 Apr, [facility] [place] [facility] [address] [id number] [place] [address]- 8833 Apr, [facility] [place] [facility] [address] [id number] [place] [address]- 4891 Mar, [facility] [place] [facility] [address] [id number] [place] [address]- 7844 Mar, [facility] [place] [facility] [address] [id number] [place] [address]- 5358 Mar, [facility] [place] [facility] [address] [id number] [place] [address]- 2103 Mar, [facility] [place] [facility] [address] [id number] [place] [address]- 1150 Jan, [facility] [place] [facility] [address] [id number] [place] [address]- 1954 Jan, [facility] [place] [facility] [address] [id number] [place] [address]- 9139 Dec, [facility] [place] [facility] [address] [facility] [id number] [place] [id number] Dec, [facility] [address] [facility] [id number] [place] [address] Dec, IMMUNIZATIONS No Known Immunizations SOCIAL HISTORY Never Assessed REASON FOR VISIT f/u PLAN OF CARE Activity Details Follow Up 4 Weeks Reason: VITAL SIGNS MEDICATIONS Medication Instructions Dosage Frequency Start Date End Date Duration Status Lancets - test blood sugar Feb, Active Blood Glucose Monitor System w/Device as directed Feb, Active Blood Glucose Test Strip test strips ONE TOUCH 4 times a day DX: O24.419 test blood sugar Feb, Active Vitamins - (Dis) Active Ranitidine HCl 75 MG Orally Twice a day 1 tablet as needed 12h 12 Jan, 2017 Active Metformin HCl 500 mg Orally Twice a day 2 tablets with breakfast, 1 tablet with dinner 12h Feb, Active RESULTS No Results PROCEDURES No Known procedures INSTRUCTIONS MEDICATIONS ADMINISTERED No Known Medications MEDICAL (GENERAL) HISTORY Type Description Date Medical History Hidradenitis Supprativa Medical History Bipolar Disorder Medical History ADHD Surgical History pilonidal cyst removal tailbone Surgical History 2018 Hospitalization History Dehydration & concussion 07/23/2016 Hospitalization History child 2018
--- OUTSIDE RECORDS SUMMARY | 2017-09-24 22:44 | XMS REPORT ---
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 Active [id number] Problem Anxiety disorder, unspecified F41.9 Active 546577004 Problem Lesion of sciatic nerve, left lower limb G57.02 Active 842524495001750 Problem Abdominal pannus E65 Active 0731312153737 Problem Obesity during in third trimester O99.213 Active 155472413 Problem Post depression F53 Active 52319223 Problem Gestational diabetes mellitus (GDM) in third trimester, gestational diabetes method of control unspecified O24.419 Active 16601172 Problem Lumbago with sciatica, left side M54.42 Active 646829379 Problem Lumbago with sciatica, right side M54.41 Active 612836451 Problem Bipolar disorder, unspecified F31.9 Active 05989180 Problem Hypertriglyceridemia E78.1 Active 119682934 Problem Attention deficit hyperactivity disorder F90.9 Active 085437715 Problem Metabolic syndrome E88.81 Active 821104577 Problem Other chronic pain G89.29 Active 44668875 Problem Obesity affecting in second trimester O99.212 Active 598165907936 Problem Suppurative hidradenitis L73.2 Active 04393409 Problem Gastro-esophageal reflux disease without esophagitis K21.9 Active 829313863 ALLERGIES No Information ENCOUNTERS Encounter Location Date Diagnosis [facility] [address] [facility] [id number] [address] Oct, [place] [address] [place] [address] 98680- 2066 Jul, Bipolar disorder, unspecified F31.9 [place] [address] [place] [id number] [place] [address] 51654- 9671 Jul, Bipolar disorder, unspecified F31.9 ; Attention deficit hyperactivity disorder F90.9 and BMI 50.0-59.9, adult Z68.43 [place] [address] [place] [id number] [place] [address] 53495- 9808 Jul, Somatic dysfunction of pelvis region M99.05 ; Somatic dysfunction of sacral region M99.04 ; Somatic dysfunction of lumbar region M99.03 ; Lesion of sciatic nerve, left lower limb G57.02 ; Lesion of sciatic nerve, 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 and BMI 50.0-59.9, adult Z68.43 [place] [address] [place] [id number] [place] [address] 88558- 6605 June, [place] [address] [place] [id number] [place] [address] 59434- 7634 June, Bipolar disorder, unspecified F31.9 ; Attention deficit hyperactivity disorder F90.9 ; High risk medication use Z79.899 and BMI 50.0- 59.9, adult Z68.43 [place] [address] [address] June, [place] [address] [place] [id number] [place] [address] 91046- 3277 June, Hidradenitis suppurativa L73.2 and BMI 50.0-59.9, adult Z68.43 [place] [address] [place] [id number] [place] [address] 14890- 9480 June, Bipolar disorder, unspecified F31.9 and BMI 50.0-59.9, adult Z68.43 [place] [address] [place] [id number] [place] [address] 11086- 0743 May, [place] [address] [place] [address] 72440- 4806 May, Lumbago with sciatica, left side M54.42 ; care and examination Z39.2 ; Lumbago with sciatica, right side M54.41 ; Other chronic pain G89.29 ; BMI 50.0-59.9, adult Z68.43 ; Abdominal pannus E65 ; Suppurative hidradenitis L73.2 and Post depression F53 [place] [address] [place] [id number] [place] [address] 95292- 2666 Apr, [place] [address] 05004- 9733 Apr, Abdominal pannus E65 and BMI 45.0-49.9, adult Z68.42 [place] [address] [place] [id number] [place] [address] 74235- 4865 Apr, Screening for iron deficiency anemia Z13.0 [place] [address] [place] [id number] [place] [address] 31276- 4647 15 Apr, 2017 Bipolar disorder, unspecified F31.9 [place] [address] [place] [id number] [place] [address] 67961- 5025 07 Apr, 2017 Obesity during in third trimester O99.213 ; Third trimester Z34.93 ; Gestational diabetes mellitus (GDM) in third trimester controlled on oral hypoglycemic drug O24.415 ; 37 weeks gestation of Z3A.37 and Oligohydramnios in third trimester, single or unspecified fetus O41.03X0 [place] [address] [place] [id number] [place] [address] 05454- 4136 Mar, Third trimester Z34.93 [place] [address] [place] [id number] [place] [address] 56685- 9497 Mar, Gestational diabetes mellitus (GDM) in third trimester controlled on oral hypoglycemic drug O24.415 [place] [address] [place] [id number] [place] [address] 04675- 2478 Mar, [place] [address] [place] [address] 37263- 5886 Mar, Third trimester Z34.93 ; Gestational diabetes mellitus (GDM) in third trimester controlled on oral hypoglycemic drug O24.415 and 35 weeks gestation of Z3A.35 [place] [address] [place] [address] 49930- 1153 15 Mar, 2017 BMI 50.0-59.9, adult Z68.43 and Bipolar disorder, unspecified F31.9 [place] [address] [place] [address] 12388- 6323 13 Mar, 2017 Diet controlled gestational diabetes mellitus (GDM), antepartum O24.410 [place] [address] [place] [address] 17831- 0098 07 Mar, 2017 33 weeks gestation of Z3A.33 ; Gestational diabetes mellitus (GDM) in third trimester controlled on oral hypoglycemic drug O24.415 ; Third trimester Z34.93 and Obesity affecting in third trimester O99.213 [place] [address] [place] [address] 75569- 4148 Mar, [place] [address] [place] [address] 35118- 8143 Feb, Third trimester Z34.93 ; Encounter for immunization Z23 ; Gestational diabetes mellitus (GDM) in third trimester controlled on oral hypoglycemic drug O24.415 ; Obesity during in third trimester O99.213 and 31 weeks gestation of Z3A.31 [place] [address] [address] 8335 Feb, [place] [address] [place] [id number] [place] [address] 40761- 0060 Feb, Gestational diabetes mellitus (GDM) in third trimester, gestational diabetes method of control unspecified O24.419 [place] [address] [place] [address] 54392- 7423 Feb, [place] [address] [place] [id number] [place] [address] 67269- 1532 Feb, [place] [address] 39477- 7584 Feb, Bipolar disorder, unspecified F31.9 and BMI 50.0-59.9, adult Z68.[address] 94132- 9549 10 Feb, 2017 29 weeks gestation of Z3A.29 ; Gestational diabetes mellitus (GDM) in third trimester, gestational diabetes method of control unspecified O24.419 ; Third trimester Z34.93 ; Obesity affecting in third trimester O99.213 and BMI 50.0-59.9, adult Z68.[address] 06348- 8218 15 Jan, 2017 Abnormal glucose tolerance test (GTT) R73.02 [facility] [address] [id number] 15 Jan, 2017 Dental examination Z01.[address] 42137- 5760 14 Jan, 2017 Bipolar disorder, unspecified F31.9 [place] [id number] [place] [address] 75221- 6958 12 Jan, 2017 25 weeks gestation of Z3A.25 ; Second trimester Z34.92 ; Gastro-esophageal reflux disease without esophagitis K21.9 ; Diseases of the digestive system complicating , second trimester O99.612 ; Abnormal ultrasonic finding on screening of mother O28.3 and BMI 50.0-59.9, adult Z68.[address] 98983- 0216 05 Jan, [address] 88644- 9622 Dec, [address] 77776- 5170 Dec, Dental examination Z01.20 [facility] [address] [place] [id number] [place] [address] 66174- 2184 14 Dec, 2016 Second trimester Z34.92 ; 21 weeks gestation of Z3A.21 and Obesity affecting in second trimester O99.212 [facility] [address] [place] [id number] [place] [address] 96564- 7416 13 Dec, 2016 [facility] [address] 01512- 2335 Dec, Lump of right breast N63.10 ; Abscess of left thigh L02.416 and BMI 45.0-49.9, adult Z68.42 [facility] [address] [place] [id number] [place] [address] [id number] 10 Dec, 2016 Dental examination Z01.20 [facility] [address] 94000- 3959 08 Dec, 2016 [facility] [address] [place] [id number] [place] [address] 45737- 3674 Dec, Bipolar disorder, unspecified F31.9 [facility] [address] [place] [id number] [place] [address] 53815- 4476 24 Nov, 2016 [facility] [address] [place] [id number] [place] [address] 46833- 3742 Nov, [facility] [address] [place] [id number] [place] [address] 49489- 2925 Nov, 17 weeks gestation of Z3A.17 and Right non- suppurative otitis media H65.91 [facility] [address] [place] [id number] [place] [address] 47460- 9644 Nov, [facility] [address] [place] [id number] [place] [address] 25880- 2774 Nov, [facility] [address] [place] [id number] [place] [address] 78323- 6709 Nov, Bipolar disorder, unspecified F31.9 [facility] [address] [id number] [address]- 1753 10 Nov, 2016 16 weeks gestation of Z3A.16 ; Second trimester Z34.92 and Obesity affecting in second trimester O99.212 [facility] [address] [place] [id number] [id number] 03 Nov, 2016 Encounter for dental examination Z01.20 [facility] [address] [address]- 4265 13 Oct, 2016 [facility] [address] [address]- 8306 12 Oct, 2016 12 weeks gestation of Z3A.12 ; First trimester Z34.90 and Obesity affecting in first trimester O99.211 [facility] [address] [address]- 2869 Sep, [facility] [address] [address]- 8984 Sep, [facility] [address], [place] [address]- 0909 Sep, Bipolar disorder, unspecified F31.9 [facility] [address] [address]- 9423 Sep, [facility] [address] [address]- 3762 Sep, [facility] [address] [address]- 6891 Sep, Normal , first Z34.00 [facility] [address] [place] [address] 97372- 7537 Sep, Normal , first Z34.00 ; 8 weeks gestation of Z3A.08 and Obesity affecting in first trimester O99.211 [facility] [address] [address]- 1033 Sep, Anxiety disorder, unspecified F41.9 [place] [address] [place] [address] 14573- 7918 Sep, [place] [address] [place] [id number] [place] [address] 23563- 7872 Sep, Encounter for test, result unknown Z32.00 [place] [address] [place] [id number] [place] [address] 84234- 8042 Aug, Anxiety disorder, unspecified F41.9 [place] [address] [place] [id number] [place] [address] 82605- 7798 Jul, Suppurative hidradenitis L73.2 ; Metabolic syndrome E88.81 ; BMI 40.0-44.9, adult Z68.41 and High risk sexual behavior Z72.51 [place] [address] [place] [id number] [place] [address] 12833- 8607 Jul, Anxiety disorder, unspecified F41.9 [place] [address] [place] [id number] [place] [address] 02516- 4098 June, Anxiety disorder, unspecified F41.9 ; Attention deficit hyperactivity disorder F90.9 and Bipolar disorder, unspecified F31.9 [place] [address] [place] [id number] [place] [address] 77362- 8623 June, Attention deficit hyperactivity disorder F90.9 [place] [address] [place] [id number] [place] [address] 45464- 6904 14 May, 2016 Attention deficit hyperactivity disorder F90.9 [place] [address] [place] [id number] [place] [address] 69424- 2724 Apr, Attention deficit hyperactivity disorder F90.9 [place] [address] [place] [id number] [place] [address] 67100- 1278 14 Mar, 2016 Abscess L02.91 and Screening for STD sexually transmitted disease Z11.3 [place] [address] [place] [id number] [place] [address] 08400- 6582 Mar, Attention deficit hyperactivity disorder F90.9 [place] [address] [place] [address] 14026- 7608 Feb, Attention deficit hyperactivity disorder F90.9 [place] [address] [place] [id number] [place] [address] 75263- 1775 Feb, Attention deficit disorder of adult F98.8 and DMDD ( disruptive mood dysregulation disorder) F34.81 [place] [address] [place] [id number] [place] [address] 54136- 3608 Jan, Exposure to sexually transmitted disease (STD) Z20.2 and Metabolic syndrome E88.[address] 57434- 8114 Jan, Possible exposure to STD Z20.2 ; BMI 40.0-44.9, adult Z68.41 ; Metabolic syndrome E88.81 ; Elevated fasting glucose R73.01 and Hypertriglyceridemia E78.1 [place] [address] [place] [id number] [place] [address] 47610- 2041 Jan, Possible exposure to STD Z20.2 ; Lumbago with sciatica, left side M54.42 ; Lumbago with sciatica, right side M54.41 ; BMI 40.0-44.9, adult Z68.41 ; Metabolic syndrome E88.81 ; Elevated fasting glucose R73.01 ; Hypertriglyceridemia E78.1 and Suppurative hidradenitis L73.2 [place] [address] [place] [id number] [place] [address] 45452- 9937 Dec, Attention deficit hyperactivity disorder F90.9 [place] [address] [place] [id number] [place] [address] 86441- 1027 Dec, [place] [address] [place] [id number] [place] [address] 92876- 0553 Nov, [place] [address] [place] [id number] [place] [address] 21223- 4099 Nov, [place] [address] [place] [id number] [place] [address] 38180- 4958 Nov, [place] [address] [address]- 7886 Nov, [place] [address] [place] [address] 62362- 2987 Oct, Lumbago with sciatica, left side M54.42 and Other chronic pain G89.29 [place] [address] [place] [address] 69290- 0108 Oct, Lumbago with sciatica, left side M54.42 ; Lumbago with sciatica, right side M54.41 ; Other chronic pain G89.29 and Suppurative hidradenitis L73.2 [place] [address], [place] [address]- 6041 Oct, [place] [address] [place] [address] 91212- 1354 Sep, [place] [address] [place] [address] 93200- 9021 Sep, Unprotected sexual intercourse Z72.51 ; Hidradenitis suppurativa L73.2 ; Elevated fasting glucose R73.01 ; BMI 40.0-44.9, adult Z68.41 and Irregular menses N92.6 [place] [address], [place] [address]- 8432 Aug, [place] [address] [place] [address] 17440- 6727 Jul, Routine health maintenance Z00.00 ; Abscess L02.91 ; H/O hidradenitis suppurativa Z87.2 ; Irregular menses N92.6 ; BMI 40.0-44.9, adult Z68.41 ; Elevated fasting glucose R73.01 and Hypertriglyceridemia E78.1 [place] [address] [address]- 8966 Jul, [facility] [address], [place] [address] -0389 Jul, Hidradenitis suppurativa L73.2 [place] [address] [place] [id number] [place] [address] 47913- 1152 Jul, Bipolar disorder, unspecified F31.9 ; Anxiety disorder, unspecified F41.9 and Attention deficit hyperactivity disorder F90.9 [place] [address] [place] [id number] [place] [address] 14922- 7823 June, [place] [address] [place] [id number] [place] [address] 05915- 9959 June, [place] [address] [place] [id number] [place] [address] 26102- 2414 May, [place] [address] [place] [id number] [place] [address] 43005- 0878 Apr, [place] [address] [place] [id number] [place] [address] 38651- 6127 Apr, Well woman exam Z01.419 ; BMI 40.0-44.9, adult Z68.41 ; Tobacco use Z72.0 ; Family history of diabetes mellitus Z83.3 ; Hidradenitis suppurativa L73.2 ; Routine screening for STI (sexually transmitted infection) Z11.3 ; Unprotected sexual intercourse Z72.51 and Family history of breast cancer Z80.3 [place] [address] [place] [address] 38800- 8200 Apr, Bipolar disorder, unspecified F31.9 ; Anxiety disorder, unspecified F41.9 and Attention deficit hyperactivity disorder F90.9 [place] [address] [place] [address] 81168- 1547 Mar, [place] [address] [place] [id number] [place] [address] 55979- 4536 Feb, [place] [address] [place] [address] 06943- 4199 Feb, [place] [address] [place] [address] 70625- 1609 Jan, Encounter for test, result negative Z32.02 and BMI 40.0-44.9, adult Z68.41 [place] [address] [place] [id number] [place] [address] 63439- 3945 Jan, Bipolar disorder, unspecified F31.9 ; Anxiety disorder, unspecified F41.9 and Attn-defct hyperactivity disorder, predom inattentive type F90.0 [place] [address] [place] [id number] [place] [address] 45957- 0888 Jan, [place] [address] 03325- 0933 Dec, [place] [address] [place] [id number] [place] [address] 36873- 7237 Dec, Bipolar disorder, unspecified F31.9 ; Attention deficit hyperactivity disorder F90.9 and Anxiety disorder, unspecified F41.9 [place] [address] [place] [id number] [place] [address] 73130- 6391 Nov, Irregular menses N92.6 ; Unprotected sexual intercourse Z72.51 ; Screening for STD sexually transmitted disease Z11.3 ; General counseling and advice for contraceptive management Z30.09 ; Oral contraceptive pill surveillance Z30.41 ; BMI 40.0-44.9, adult Z68.41 and H/O hidradenitis suppurativa Z87.2 [facility] [address] [place] [address] [id number] Sep, Dental examination V72.2 [place] [address] [place] [id number] [place] [address] 12213- 1458 Sep, Screen for STD (sexually transmitted disease) V74.5 and General counseling on prescription of oral contraceptives V25.01 [place] [address] [place] [id number] [place] [address] 72458- 9407 May, [place] [address] 39954- 2546 May, [facility] [place] [facility] [address] [id number] [place] [address]- 9692 Apr, [facility] [place] [facility] [address] [id number] [place] [address]- 7926 Apr, [facility] [place] [facility] [address] [facility] [id number] [place] [address]- 2356 Apr, [facility] [place] [facility] [address] [id number] [place] [address]- 8014 Apr, [facility] [place] [facility] [address] [id number] [place] [address]- 7130 Apr, [facility] [place] [facility] [address] [facility] [id number] [place] [address]- 3934 Apr, [facility] [place] [facility] [address] [facility] [id number] [place] [address]- 3152 Apr, [facility] [place] [facility] [address] [facility] [id number] [place] [address]- 2514 Mar, [facility] [place] [facility] [address] [facility] [id number] [place] [address]- 9750 Mar, [facility] [place] [facility] [address] [facility] [id number] [place] [address]- 5077 Mar, [facility] [place] [facility] [address] [facility] [id number] [place] [address]- 0718 Mar, 2014 [facility] [place] [facility] [address] [facility] [id number] [place] [address]- 3356 Mar, [facility] [place] [facility] [address] [id number] [place] [address]- 9976 Mar, [facility] [place] [facility] [address] [facility] [id number] [place] [address]- 3640 Jan, [facility] [place] [facility] [address] [facility] [id number] [place] [address]- 5829 Jan, [facility] [place] [facility] [address] [id number] [place] [address]- 9359 Dec, [facility] [place] [facility] [address] [id number] [place] [address]- 8176 Dec, [facility] [place] [facility] [address] [id number] [place] [address]- 5140 Dec, [facility] [place] [facility] [address] [id number] [place] [address]- 6647 Dec, [facility] [place] [facility] [address] [id number] [place] [address]- 6994 Sep, [facility] [place] [facility] [address] [id number] [place] [address]- 6353 Sep, [facility] [place] [facility] [address] [id number] [place] [address]- 0842 Apr, [facility] [place] [facility] [address] [id number] [place] [address]- 4084 Apr, [facility] [place] [facility] [address] [id number] [place] [address]- 8924 Mar, [facility] [place] [facility] [address] [id number] [place] [address]- 8341 Mar, [facility] [place] [facility] [address] [id number] [place] [address]- 7991 Mar, [facility] [place] [facility] [address] [id number] [place] [address]- 2415 Mar, [facility] [place] [facility] [address] [id number] [place] [address]- 6363 Jan, [facility] [place] [facility] [address] [id number] [place] [address] Jan, [facility] [place] [facility] [address] [id number] [place] [address] Dec, [facility] [place] [facility] [address] [id number] [place] [address] Dec, [facility] [address] [facility] [id number] [place] [address] Dec, IMMUNIZATIONS No Known Immunizations SOCIAL HISTORY Never Assessed REASON FOR VISIT [facility] PLAN OF CARE VITAL SIGNS MEDICATIONS Unknown Medications RESULTS Name Result Date Reference Range HEMOGLOBIN (IN HOUSE) 2017-05-02 HEMOGLOBIN 11.6 11.5 - 16 gm/dL Lot # [id number] Exp date 02 Jan 2018 PROCEDURES Procedure Date Ordered Result Body Site HEMOGLOBIN May 02, 2017 INSTRUCTIONS MEDICATIONS ADMINISTERED No Known Medications MEDICAL (GENERAL) HISTORY Type Description Date Medical History Hidradenitis Supprativa Medical History Bipolar Disorder Medical History ADHD Surgical History pilonidal cyst removal tailbone Surgical History 2018 Hospitalization History Dehydration & concussion 07/23/2016 Hospitalization History child 2018
--- OUTSIDE RECORDS SUMMARY | 2017-09-24 22:44 | XMS REPORT ---
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 Active [id number] Problem Anxiety disorder, unspecified F41.9 Active 749066794 Problem Lesion of sciatic nerve, left lower limb G57.02 Active 860451835147415 Problem Abdominal pannus E65 Active 1317931038980 Problem Obesity during in third trimester O99.213 Active 800552778 Problem Post depression F53 Active 67324511 Problem Gestational diabetes mellitus (GDM) in third trimester, gestational diabetes method of control unspecified O24.419 Active 05800190 Problem Lumbago with sciatica, left side M54.42 Active 244348518 Problem Lumbago with sciatica, right side M54.41 Active 384193778 Problem Bipolar disorder, unspecified F31.9 Active 50272943 Problem Hypertriglyceridemia E78.1 Active 671356075 Problem Attention deficit hyperactivity disorder F90.9 Active 288082422 Problem Metabolic syndrome E88.81 Active 453411050 Problem Other chronic pain G89.29 Active 15820655 Problem Obesity affecting in second trimester O99.212 Active 870999409680 Problem Suppurative hidradenitis L73.2 Active 54775158 Problem Gastro-esophageal reflux disease without esophagitis K21.9 Active 937516388 ALLERGIES No Information ENCOUNTERS Encounter Location Date Diagnosis [facility] [address] [facility] [id number] [address] Oct, [place] [address] [place] [address] 86841- 9741 Jul, Bipolar disorder, unspecified F31.9 [place] [address] [place] [address] 34019- 2792 Jul, Bipolar disorder, unspecified F31.9 ; Attention deficit hyperactivity disorder F90.9 and BMI 50.0-59.9, adult Z68.43 [place] [address], [place] [address] 14 Jul, 2017 Somatic dysfunction of pelvis region M99.05 ; Somatic dysfunction of sacral region M99.04 ; Somatic dysfunction of lumbar region M99.03 ; Lesion of sciatic nerve, left lower limb G57.02 ; Lesion of sciatic nerve, 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 and BMI 50.0-59.9, adult Z68.43 [place] [address] [place] [id number] [place] [address] 07337- 3573 June, [place] [address] [place] [id number] [place] [address] 06618- 3351 June, Bipolar disorder, unspecified F31.9 ; Attention deficit hyperactivity disorder F90.9 ; High risk medication use Z79.899 and BMI 50.0- 59.9, adult Z68.43 [place] [address] [address] June, [place] [address] [place] [id number] [place] [address] 32850- 2867 June, Hidradenitis suppurativa L73.2 and BMI 50.0-59.9, adult Z68.43 [place] [address] [place] [address] 98994- 2369 June, Bipolar disorder, unspecified F31.9 and BMI 50.0-59.9, adult Z68.43 [place] [address] [place] [address] 36092- 7798 May, [place] [address] [place] [id number] [place] [address] 97952- 4798 May, Lumbago with sciatica, left side M54.42 ; care and examination Z39.2 ; Lumbago with sciatica, right side M54.41 ; Other chronic pain G89.29 ; BMI 50.0-59.9, adult Z68.43 ; Abdominal pannus E65 ; Suppurative hidradenitis L73.2 and Post depression F53 [place] [address] [place] [id number] [place] [address] 02534- 7964 Apr, [place] [address] 11129- 3405 Apr, Abdominal pannus E65 and BMI 45.0-49.9, adult Z68.42 [place] [address] 54641- 8595 Apr, Screening for iron deficiency anemia Z13.0 [place] [address] [place] [id number] [place] [address] 58724- 4921 15 Apr, 2017 Bipolar disorder, unspecified F31.9 [place] [address] [place] [id number] [place] [address] 95164- 0437 07 Apr, 2017 Obesity during in third trimester O99.213 ; Third trimester Z34.93 ; Gestational diabetes mellitus (GDM) in third trimester controlled on oral hypoglycemic drug O24.415 ; 37 weeks gestation of Z3A.37 and Oligohydramnios in third trimester, single or unspecified fetus O41.03X0 [place] [address] [place] [id number] [place] [address] 77690- 7557 Mar, Third trimester Z34.93 [place] [address] [place] [id number] [place] [address] 31800- 0490 26 Mar, 2017 Gestational diabetes mellitus (GDM) in third trimester controlled on oral hypoglycemic drug O24.415 [place] [address] 92976- 5299 Mar, [place] [address] [place] [address] 39994- 1325 Mar, Third trimester Z34.93 ; Gestational diabetes mellitus (GDM) in third trimester controlled on oral hypoglycemic drug O24.415 and 35 weeks gestation of Z3A.35 [place] [address] [place] [id number] [place] [address] 46057- 3931 15 Mar, 2017 BMI 50.0-59.9, adult Z68.43 and Bipolar disorder, unspecified F31.9 [place] [address] [place] [id number] [place] [address] 89309- 9432 13 Mar, 2017 Diet controlled gestational diabetes mellitus (GDM), antepartum O24.410 [place] [address] [place] [id number] [place] [address] 41264- 0038 07 Mar, 2017 33 weeks gestation of Z3A.33 ; Gestational diabetes mellitus (GDM) in third trimester controlled on oral hypoglycemic drug O24.415 ; Third trimester Z34.93 and Obesity affecting in third trimester O99.213 [place] [address] [place] [id number] [place] [address] 81184- 3565 Mar, [place] [address] [place] [address] 78880- 6453 Feb, Third trimester Z34.93 ; Encounter for immunization Z23 ; Gestational diabetes mellitus (GDM) in third trimester controlled on oral hypoglycemic drug O24.415 ; Obesity during in third trimester O99.213 and 31 weeks gestation of Z3A.31 [place] [address] [place] [address] 33610- 7286 Feb, [place] [address] [place] [id number] [place] [address] 01174- 7368 Feb, Gestational diabetes mellitus (GDM) in third trimester, gestational diabetes method of control unspecified O24.419 [place] [address] [place] [id number] [place] [address] 94076- 9725 Feb, [place] [address] [place] [id number] [place] [address] 66772- 6536 Feb, [place] [address] 17624- 9798 Feb, Bipolar disorder, unspecified F31.9 and BMI 50.0-59.9, adult Z68.43 [place] [address] 31885- 4627 10 Feb, 2017 29 weeks gestation of Z3A.29 ; Gestational diabetes mellitus (GDM) in third trimester, gestational diabetes method of control unspecified O24.419 ; Third trimester Z34.93 ; Obesity affecting in third trimester O99.213 and BMI 50.0-59.9, adult Z68.[address] 57996- 4854 15 Jan, 2017 Abnormal glucose tolerance test (GTT) R73.02 [facility] [address] [id number] Jan, 2017 Dental examination Z01.[address] 86133- 3262 14 Jan, 2017 Bipolar disorder, unspecified F31.9 [place] [id number] [place] [address] 01656- 1484 12 Jan, 2017 25 weeks gestation of Z3A.25 ; Second trimester Z34.92 ; Gastro-esophageal reflux disease without esophagitis K21.9 ; Diseases of the digestive system complicating , second trimester O99.612 ; Abnormal ultrasonic finding on screening of mother O28.3 and BMI 50.0-59.9, adult Z68.43 [place] [address] 22748- 6881 05 Jan, 2017 [place] [address] 49161- 9186 Dec, [address] 92798- 3022 Dec, Dental examination Z01.20 [facility] [address] [place] [id number] [place] [address] 55542- 1326 14 Dec, 2016 Second trimester Z34.92 ; 21 weeks gestation of Z3A.21 and Obesity affecting in second trimester O99.212 [facility] [address] [place] [id number] [place] [address] 07669- 8510 13 Dec, 2016 [facility] [address] 64538- 2391 Dec, Lump of right breast N63.10 ; Abscess of left thigh L02.416 and BMI 45.0-49.9, adult Z68.42 [facility] [address] [place] [id number] [place] [address] [id number] 10 Dec, 2016 Dental examination Z01.20 [facility] [address] [place] [id number] [place] [address] 37396- 1185 08 Dec, 2016 [facility] [address] [place] [id number] [place] [address] 01167- 1075 Dec, Bipolar disorder, unspecified F31.9 [facility] [address] [place] [id number] [place] [address] 05728- 8538 24 Nov, 2016 [facility] [address] [place] [id number] [place] [address] 66006- 4555 Nov, [facility] [address] [place] [id number] [place] [address] 66429- 1497 Nov, 17 weeks gestation of Z3A.17 and Right non- suppurative otitis media H65.91 [facility] [address] [place] [id number] [place] [address] 78948- 3973 Nov, [facility] [address] [place] [id number] [place] [address] 42280- 4559 Nov, [facility] [address] [place] [id number] [place] [address] 06995- 8430 Nov, Bipolar disorder, unspecified F31.9 [facility] [address] [place] [id number] [address]- 5684 10 Nov, 2016 16 weeks gestation of Z3A.16 ; Second trimester Z34.92 and Obesity affecting in second trimester O99.212 [facility] [address] [place] [id number] [id number] 03 Nov, 2016 Encounter for dental examination Z01.20 [facility] [address], [place] [address]- 9661 13 Oct, 2016 [facility] [address], [place] [address]- 3437 12 Oct, 2016 12 weeks gestation of Z3A.12 ; First trimester Z34.90 and Obesity affecting in first trimester O99.211 [facility] [address], [place] [address]- 7105 Sep, [facility] [address], [place] [address]- 1587 Sep, [facility] [address] [place] [address] [address]- 2826 Sep, Bipolar disorder, unspecified F31.9 [facility] [address], [place] [address]- 3948 Sep, [facility] [address], [place] [address]- 9245 Sep, [facility] [address], [place] [address]- 9214 Sep, Normal , first Z34.00 [facility] [address] [place] [id number] [place] [address] 41239- 7855 Sep, Normal , first Z34.00 ; 8 weeks gestation of Z3A.08 and Obesity affecting in first trimester O99.211 [facility] [address], [place] [address]- 9414 Sep, Anxiety disorder, unspecified F41.9 [place] [address] [place] [id number] [place] [address] 22986- 7407 Sep, [place] [address] [place] [id number] [place] [address] 06152- 3886 Sep, Encounter for test, result unknown Z32.00 [place] [address] 83234- 9765 Aug, Anxiety disorder, unspecified F41.9 [place] [address] [place] [id number] [place] [address] 51313- 5643 Jul, Suppurative hidradenitis L73.2 ; Metabolic syndrome E88.81 ; BMI 40.0-44.9, adult Z68.41 and High risk sexual behavior Z72.51 [place] [address] [place] [id number] [place] [address] 64987- 0808 Jul, Anxiety disorder, unspecified F41.9 [place] [address] [place] [id number] [place] [address] 84825- 9272 June, Anxiety disorder, unspecified F41.9 ; Attention deficit hyperactivity disorder F90.9 and Bipolar disorder, unspecified F31.9 [place] [address] [place] [id number] [place] [address] 46136- 1146 June, Attention deficit hyperactivity disorder F90.9 [place] [address] [place] [id number] [place] [address] 54249- 1079 May, Attention deficit hyperactivity disorder F90.9 [place] [address] [place] [id number] [place] [address] 12097- 4709 Apr, Attention deficit hyperactivity disorder F90.9 [place] [address] [place] [id number] [place] [address] 06850- 3920 14 Mar, 2016 Abscess L02.91 and Screening for STD sexually transmitted disease Z11.3 [place] [address] [place] [id number] [place] [address] 47215- 6527 Mar, Attention deficit hyperactivity disorder F90.9 [facility] [address] [place] [address] 85824- 1766 Feb, Attention deficit hyperactivity disorder F90.9 [facility] [address] [place] [id number] [place] [address] 40913- 8461 Feb, Attention deficit disorder of adult F98.8 and DMDD ( disruptive mood dysregulation disorder) F34.81 [place] [address] [place] [id number] [place] [address] 76172- 9648 Jan, Exposure to sexually transmitted disease (STD) Z20.2 and Metabolic syndrome E88.81 [place] [id number] [place] [address] 13810- 2598 Jan, Possible exposure to STD Z20.2 ; BMI 40.0-44.9, adult Z68.41 ; Metabolic syndrome E88.81 ; Elevated fasting glucose R73.01 and Hypertriglyceridemia E78.1 [place] [address] [place] [address] 31605- 5154 Jan, Possible exposure to STD Z20.2 ; Lumbago with sciatica, left side M54.42 ; Lumbago with sciatica, right side M54.41 ; BMI 40.0-44.9, adult Z68.41 ; Metabolic syndrome E88.81 ; Elevated fasting glucose R73.01 ; Hypertriglyceridemia E78.1 and Suppurative hidradenitis L73.2 [place] [address] [place] [address] 40558- 0144 Dec, Attention deficit hyperactivity disorder F90.9 [place] [address] [place] [address] 23163- 6445 Dec, [place] [address] [place] [id number] [place] [address] 36407- 4624 Nov, [place] [address] [place] [id number] [place] [address] 48391- 6499 Nov, [place] [address] [place] [address]- 5074 Nov, [place] [address] [place] [id number] [place] [address] 83658- 0291 Nov, [place] [address] [place] [id number] [place] [address] 01122- 8360 Oct, Lumbago with sciatica, left side M54.42 and Other chronic pain G89.29 [place] [address] [place] [id number] [place] [address] 07804- 5742 22 Oct, 2015 Lumbago with sciatica, left side M54.42 ; Lumbago with sciatica, right side M54.41 ; Other chronic pain G89.29 and Suppurative hidradenitis L73.2 [place] [address] [place] [id number] [place] [address] 99314- 0337 Oct, [place] [address] [place] [id number] [place] [address] 46917- 5611 Sep, [place] [address] [place] [id number] [place] [address] 78506- 1170 Sep, Unprotected sexual intercourse Z72.51 ; Hidradenitis suppurativa L73.2 ; Elevated fasting glucose R73.01 ; BMI 40.0-44.9, adult Z68.41 and Irregular menses N92.6 [place] [address] [place] [address] 14042- 0860 Aug, [place] [address] [place] [id number] [place] [address] 10110- 9962 24 Jul, 2015 Routine health maintenance Z00.00 ; Abscess L02.91 ; H/O hidradenitis suppurativa Z87.2 ; Irregular menses N92.6 ; BMI 40.0-44.9, adult Z68.41 ; Elevated fasting glucose R73.01 and Hypertriglyceridemia E78.1 [place] [address] [place] [address] 37651- 8533 Jul, [facility] [address], [place] [address] -5613 08 Jul, 2015 Hidradenitis suppurativa L73.2 [facility] [address], [place] [address]- 2282 Jul, Bipolar disorder, unspecified F31.9 ; Anxiety disorder, unspecified F41.9 and Attention deficit hyperactivity disorder F90.9 [place] [address], [place] [address]- 8305 June, [place] [address] [place] [id number] [place] [address] 38135- 9708 June, [place] [address] [place] [id number] [place] [address] 17162- 4467 May, [place] [address], [place] [address]- 7403 Apr, [place] [address] [place] [address] 23804- 2048 Apr, Well woman exam Z01.419 ; BMI 40.0-44.9, adult Z68.41 ; Tobacco use Z72.0 ; Family history of diabetes mellitus Z83.3 ; Hidradenitis suppurativa L73.2 ; Routine screening for STI (sexually transmitted infection) Z11.3 ; Unprotected sexual intercourse Z72.51 and Family history of breast cancer Z80.3 [place] [address], [place] [address]- 3071 Apr, Bipolar disorder, unspecified F31.9 ; Anxiety disorder, unspecified F41.9 and Attention deficit hyperactivity disorder F90.9 [place] [address], [place] [address]- 8071 Mar, [facility] [address], [place] [address]- 4188 Feb, [place] [address] [place] [id number], [place] [address]- 6460 Feb, [place] [address] [place] [address] 62403- 8422 Jan, Encounter for test, result negative Z32.02 and BMI 40.0-44.9, adult Z68.41 [place] [address] [place] [id number] [place] [address] 05138- 2254 Jan, Bipolar disorder, unspecified F31.9 ; Anxiety disorder, unspecified F41.9 and Attn-defct hyperactivity disorder, predom inattentive type F90.0 [place] [address] [place] [id number] [place] [address] 17198- 4176 Jan, [place] [address] 06104- 8968 Dec, [place] [address] [place] [id number] [place] [address] 19042- 4021 Dec, Bipolar disorder, unspecified F31.9 ; Attention deficit hyperactivity disorder F90.9 and Anxiety disorder, unspecified F41.9 [place] [address] [place] [id number] [place] [address] 28326- 3800 Nov, Irregular menses N92.6 ; Unprotected sexual intercourse Z72.51 ; Screening for STD sexually transmitted disease Z11.3 ; General counseling and advice for contraceptive management Z30.09 ; Oral contraceptive pill surveillance Z30.41 ; BMI 40.0-44.9, adult Z68.41 and H/O hidradenitis suppurativa Z87.2 [facility] [address] [place] [address] [id number] Sep, Dental examination V72.2 [place] [address] [place] [id number] [place] [address] 37931- 2882 Sep, Screen for STD (sexually transmitted disease) V74.5 and General counseling on prescription of oral contraceptives V25.01 [place] [address] [place] [id number] [place] [address] 37670- 6864 May, [place] [address] [place] [id number] [place] [address] 50278- 9655 May, [facility] [place] [facility] [address] [id number] [place] [address]- 7821 Apr, [facility] [place] [facility] [address] [facility] [id number] [place] [address]- 1551 Apr, [facility] [place] [facility] [address] [facility] [id number] [place] [address]- 3906 Apr, [facility] [place] [facility] [address] [facility] [id number] [place] [address]- 9676 Apr, [facility] [place] [facility] [address] [facility] [id number] [place] [address]- 2065 Apr, [facility] [place] [facility] [address] [facility] [id number] [place] [address]- 2621 Apr, [facility] [place] [facility] [address] [place] [id number] [place] [address]- 8932 Apr, [facility] [place] [facility] [address] [facility] [id number] [place] [address]- 4674 Mar, [facility] [place] [facility] [address] [place] [id number] [place] [address]- 3374 Mar, 2014 [facility] [place] [facility] [address] [facility] [id number] [place] [address]- 4475 Mar, 2014 [facility] [place] [facility] [address] [place] [id number] [place] [address]- 1208 Mar, 2014 [facility] [place] [facility] [address] [facility] [id number], [place] [address]- 1331 Mar, 2014 [facility] [place] [facility] [address] [facility] [id number] [place]- 3523 Mar, 2014 [facility] [place] [facility] [address] [facility] [id number] [place] [address]- 1588 Jan, [facility] [place] [facility] [address] [facility] [id number], [place] [address]- 9668 Jan, [facility] [place] [facility] [address] [id number] [place] [address]- 6641 Dec, [facility] [place] [facility] [address] [id number] [place] [address]- 0600 Dec, [facility] [place] [facility] [address] [id number] [place] [address]- 5240 Dec, [facility] [place] [facility] [address] [id number] [place] [address]- 2698 Dec, [facility] [place] [facility] [address] [id number] [place] [address]- 2968 Sep, [facility] [place] [facility] [address] [id number] [place] [address]- 3914 Sep, [facility] [place] [facility] [address] [id number] [place] [address]- 7918 Apr, [facility] [place] [facility] [address] [id number] [place] [address]- 6304 Apr, [facility] [place] [facility] [address] [id number] [place] [address]- 1537 Mar, [facility] [place] [facility] [address] [id number] [place] [address]- 3115 Mar, [facility] [place] [facility] [address] [id number] [place] [address]- 9861 Mar, [facility] [place] [facility] [address] [id number], [place] [address]- 8402 Mar, [facility] [place] [facility] [address] [id number] [place] [address]- 4387 Jan, [facility] [place] [facility] [address] [id number] [place] [address] Jan, [facility] [place] [facility] [address] [id number] [place] [address] Dec, [facility] [place] [facility] [address] [id number], [place] [address] Dec, [facility] [address] [facility] [id number] [place] [address] Dec, IMMUNIZATIONS No Known Immunizations SOCIAL HISTORY Never Assessed REASON FOR VISIT PE-approved PLAN OF CARE VITAL SIGNS MEDICATIONS Unknown [...]
--- OUTSIDE RECORDS SUMMARY | 2017-09-24 22:45 | XMS REPORT ---
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 Active [id number] Problem Anxiety disorder, unspecified F41.9 Active 108231769 Problem Lesion of sciatic nerve, left lower limb G57.02 Active 543283267088020 Problem Abdominal pannus E65 Active 1236363484552 Problem Obesity during in third trimester O99.213 Active 054017513 Problem Post depression F53 Active 55071631 Problem Gestational diabetes mellitus (GDM) in third trimester, gestational diabetes method of control unspecified O24.419 Active 63717871 Problem Lumbago with sciatica, left side M54.42 Active 745982320 Problem Lumbago with sciatica, right side M54.41 Active 349163534 Problem Bipolar disorder, unspecified F31.9 Active 35635190 Problem Hypertriglyceridemia E78.1 Active 068719371 Problem Attention deficit hyperactivity disorder F90.9 Active 408332100 Problem Metabolic syndrome E88.81 Active 369904750 Problem Other chronic pain G89.29 Active 84866214 Problem Obesity affecting in second trimester O99.212 Active 094341068375 Problem Suppurative hidradenitis L73.2 Active 76498490 Problem Gastro-esophageal reflux disease without esophagitis K21.9 Active 654335895 ALLERGIES Substance Reaction Event Type Date Status Bees anaphylaxis Non Drug Allergy Mar, Active ENCOUNTERS Encounter Location Date Diagnosis [facility] [address], [place] [address] Oct, [place] [id number] [place] [address] 66361- 7160 Jul, Bipolar disorder, unspecified F31.9 [place] [id number] [place] [address] 88245- 1379 Jul, Bipolar disorder, unspecified F31.9 ; Attention deficit hyperactivity disorder F90.9 and BMI 50.0-59.9, adult Z68.43 [facility] [id number] [place] [address] 87358- 7078 14 Jul, 2017 Somatic dysfunction of pelvis region M99.05 ; Somatic dysfunction of sacral region M99.04 ; Somatic dysfunction of lumbar region M99.03 ; Lesion of sciatic nerve, left lower limb G57.02 ; Lesion of sciatic nerve, 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 and BMI 50.0-59.9, adult Z68.43 [facility] [id number] [address] June, [facility] [id number] [place] [address] 35158- 2120 June, Bipolar disorder, unspecified F31.9 ; Attention deficit hyperactivity disorder F90.9 ; High risk medication use Z79.899 and BMI 50.0- 59.9, adult Z68.43 [facility] [address], [place] [address] June, [place] [id number] [place] [address] 95104- 0511 June, Hidradenitis suppurativa L73.2 and BMI 50.0-59.9, adult Z68.43 [place] [address], [place] [address] June, Bipolar disorder, unspecified F31.9 and BMI 50.0-59.9, adult Z68.43 [facility] [id number] [place] [address] 48628- 4569 May, [place] [address] 98121- 9436 May, Lumbago with sciatica, left side M54.42 ; care and examination Z39.2 ; Lumbago with sciatica, right side M54.41 ; Other chronic pain G89.29 ; BMI 50.0-59.9, adult Z68.43 ; Abdominal pannus E65 ; Suppurative hidradenitis L73.2 and Post depression F53 [place] [id number] [place] [address] 30650- 3648 Apr, [place] [address] 45057- 4365 Apr, Abdominal pannus E65 and BMI 45.0-49.9, adult Z68.42 [place] [address] 17506- 0075 Apr, Screening for iron deficiency anemia Z13.0 [facility] [id number] [place] [address] 16909- 7734 15 Apr, 2017 Bipolar disorder, unspecified F31.9 [facility] [id number] [place] [address] 65891- 9115 07 Apr, 2017 Obesity during in third trimester O99.213 ; Third trimester Z34.93 ; Gestational diabetes mellitus (GDM) in third trimester controlled on oral hypoglycemic drug O24.415 ; 37 weeks gestation of Z3A.37 and Oligohydramnios in third trimester, single or unspecified fetus O41.03X0 [place] [address] 35247- 6652 Mar, Third trimester Z34.93 [facility] [id number] [place] [address] 67879- 5597 Mar, Gestational diabetes mellitus (GDM) in third trimester controlled on oral hypoglycemic drug O24.415 [place] [id number] [place] [address] 57493- 4619 Mar, [place] [id number] [place] [address] 62570- 1838 22 Mar, 2017 Third trimester Z34.93 ; Gestational diabetes mellitus (GDM) in third trimester controlled on oral hypoglycemic drug O24.415 and 35 weeks gestation of Z3A.35 [facility] [id number] [place] [address] 84823- 7750 15 Mar, 2017 BMI 50.0-59.9, adult Z68.43 and Bipolar disorder, unspecified F31.9 [place] [id number] [place] [address] 85339- 6925 13 Mar, 2017 Diet controlled gestational diabetes mellitus (GDM), antepartum O24.410 [facility] [id number] [place] [address] 70122- 7960 07 Mar, 2017 33 weeks gestation of Z3A.33 ; Gestational diabetes mellitus (GDM) in third trimester controlled on oral hypoglycemic drug O24.415 ; Third trimester Z34.93 and Obesity affecting in third trimester O99.213 [place] [id number] [place] [address] 74352- 1329 01 Mar, 2017 [place] [id number] [place] [address] 26341- 1402 Feb, Third trimester Z34.93 ; Encounter for immunization Z23 ; Gestational diabetes mellitus (GDM) in third trimester controlled on oral hypoglycemic drug O24.415 ; Obesity during in third trimester O99.213 and 31 weeks gestation of Z3A.31 [place] [id number] [place] [address] 80001- 3191 Feb, [place] [id number] [place] [address] 31962- 0108 Feb, Gestational diabetes mellitus (GDM) in third trimester, gestational diabetes method of control unspecified O24.419 [place] [address] [place] [address]- 5876 Feb, [facility] [id number] [place] [address] 69255- 7340 Feb, [place] [id number] [place] [address] 26991- 2004 Feb, Bipolar disorder, unspecified F31.9 and BMI 50.0-59.9, adult Z68.43 [place] [address] 95050- 4298 10 Feb, 2017 29 weeks gestation of Z3A.29 ; Gestational diabetes mellitus (GDM) in third trimester, gestational diabetes method of control unspecified O24.419 ; Third trimester Z34.93 ; Obesity affecting in third trimester O99.213 and BMI 50.0-59.9, adult Z68.43 [place] [id number] [place] [address] 91287- 6851 15 Jan, 2017 Abnormal glucose tolerance test (GTT) R73.02 [facility] [id number] [place] [address] [id number] 15 Jan, 2017 Dental examination Z01.20 [place] [id number] [place] [address] 51740- 1630 14 Jan, 2017 Bipolar disorder, unspecified F31.9 [address] [place] [address] 37529- 0356 12 Jan, 2017 25 weeks gestation of Z3A.25 ; Second trimester Z34.92 ; Gastro-esophageal reflux disease without esophagitis K21.9 ; Diseases of the digestive system complicating , second trimester O99.612 ; Abnormal ultrasonic finding on screening of mother O28.3 and BMI 50.0-59.9, adult Z68.43 [place] [id number] [place] [address] 93552- 7894 05 Jan, 2017 [place] [id number] [place] [address] 29371- 1457 Dec, [place] [id number] [place] [address] 81165- 1303 14 Dec, 2016 Dental examination Z01.20 [facility] [id number] [place] [address] 56034- 4321 14 Dec, 2016 Second trimester Z34.92 ; 21 weeks gestation of Z3A.21 and Obesity affecting in second trimester O99.212 [facility] [address] 04725- 1304 13 Dec, 2016 [facility] [address] 54068- 9436 10 Dec, 2016 Lump of right breast N63.10 ; Abscess of left thigh L02.416 and BMI 45.0-49.9, adult Z68.42 [facility] [id number] [place] [address] [id number] 10 Dec, 2016 Dental examination Z01.20 [facility] [id number] [place] [address] 35412- 8769 08 Dec, 2016 [facility] [address] 97600- 3403 07 Dec, 2016 Bipolar disorder, unspecified F31.9 [facility] [id number] [place] [address] 69801- 9683 24 Nov, 2016 [place] [id number] [place] [address] 84772- 6783 Nov, [facility] [id number] [place] [address] 78740- 9997 Nov, 17 weeks gestation of Z3A.17 and Right non- suppurative otitis media H65.91 [facility] [id number] [place] [address] 68053- 6606 16 Nov, 2016 [facility] [id number] [place] [address] 49025- 7549 Nov, [facility] [id number] [place] [address] 25637- 8160 Nov, Bipolar disorder, unspecified F31.9 [facility] [address], [place] [address]- 6944 10 Nov, 2016 16 weeks gestation of Z3A.16 ; Second trimester Z34.92 and Obesity affecting in second trimester O99.212 [facility] [address] [address] 03 Nov, 2016 Encounter for dental examination Z01.20 [facility] [address] [place] [address] 10627- 9597 13 Oct, 2016 [facility] [id number] [place] [address] 50099- 4994 12 Oct, 2016 12 weeks gestation of Z3A.12 ; First trimester Z34.90 and Obesity affecting in first trimester O99.211 [facility] [id number] [place] [address] 68277- 4767 Sep, [facility] [address] [place] [address] 84717- 0798 Sep, [facility] [id number] [place] [address] 97713- 0067 Sep, Bipolar disorder, unspecified F31.9 [facility] [address], [place] [address]- 5660 Sep, [facility] [address] [place] [address] 50395- 0245 Sep, [facility] [address], [place] [address]- 7180 Sep, Normal , first Z34.00 [facility] [address] [place] [address] 73046- 1613 15 Sep, 2016 Normal , first Z34.00 ; 8 weeks gestation of Z3A.08 and Obesity affecting in first trimester O99.211 [facility] [address] [place] [address] 94849- 4964 Sep, Anxiety disorder, unspecified F41.9 [place] [id number] [place] [address] 84323- 6736 Sep, [place] [id number] [place] [address] 74902- 8554 Sep, Encounter for test, result unknown Z32.00 [place] [id number] [place] [address] 67569- 6432 Aug, Anxiety disorder, unspecified F41.9 [place] [id number] [place] [address] 17727- 2955 Jul, Suppurative hidradenitis L73.2 ; Metabolic syndrome E88.81 ; BMI 40.0-44.9, adult Z68.41 and High risk sexual behavior Z72.51 [place] [id number] [place] [address] 63678- 8231 Jul, Anxiety disorder, unspecified F41.9 [place] [id number] [place] [address] 37583- 4198 June, Anxiety disorder, unspecified F41.9 ; Attention deficit hyperactivity disorder F90.9 and Bipolar disorder, unspecified F31.9 [place] [id number] [place] [address] 03302- 1608 June, Attention deficit hyperactivity disorder F90.9 [place] [id number] [place] [address] 51708- 8614 May, Attention deficit hyperactivity disorder F90.9 [place] [id number] [place] [address] 43919- 4937 Apr, Attention deficit hyperactivity disorder F90.9 [place] [id number] [place] [address] 87461- 1578 14 Mar, 2016 Abscess L02.91 and Screening for STD sexually transmitted disease Z11.3 [place] [id number] [place] [address] 66592- 2930 Mar, Attention deficit hyperactivity disorder F90.9 [place] [id number] [place] [address] 68456- 8285 Feb, Attention deficit hyperactivity disorder F90.9 [place] [id number] [place] [address] 32572- 9809 Feb, Attention deficit disorder of adult F98.8 and DMDD ( disruptive mood dysregulation disorder) F34.81 [place] [id number] [place] [address] 15904- 5543 Jan, Exposure to sexually transmitted disease (STD) Z20.2 and Metabolic syndrome E88.81 [place] [id number] [place] [address] 84218- 2768 Jan, Possible exposure to STD Z20.2 ; BMI 40.0-44.9, adult Z68.41 ; Metabolic syndrome E88.81 ; Elevated fasting glucose R73.01 and Hypertriglyceridemia E78.1 [place] [address] [place] [address] 34455- 4790 Jan, Possible exposure to STD Z20.2 ; Lumbago with sciatica, left side M54.42 ; Lumbago with sciatica, right side M54.41 ; BMI 40.0-44.9, adult Z68.41 ; Metabolic syndrome E88.81 ; Elevated fasting glucose R73.01 ; Hypertriglyceridemia E78.1 and Suppurative hidradenitis L73.2 [place] [address], [place] [address]- 4360 Dec, Attention deficit hyperactivity disorder F90.9 [place] [id number] [place] [address] 34695- 3498 Dec, [place] [address] [place] [address] 27041- 8456 Nov, [place] [id number] [place] [address] 65051- 8838 Nov, [place] [address], [place] [address]- 0269 Nov, [place] [id number] [place] [address] 91068- 0500 Nov, [place] [id number] [place] [address] 45239- 0223 Oct, Lumbago with sciatica, left side M54.42 and Other chronic pain G89.29 [place] [id number] [place] [address] 55066- 9075 Oct, Lumbago with sciatica, left side M54.42 ; Lumbago with sciatica, right side M54.41 ; Other chronic pain G89.29 and Suppurative hidradenitis L73.2 [place] [id number] [place] [address] 66083- 4017 Oct, [place] [id number] [place] [address] 86276- 6145 Sep, [place] [id number] [place] [address] 56430- 2249 Sep, Unprotected sexual intercourse Z72.51 ; Hidradenitis suppurativa L73.2 ; Elevated fasting glucose R73.01 ; BMI 40.0-44.9, adult Z68.41 and Irregular menses N92.6 [place] [id number] [place] [address] 78237- 4518 Aug, [place] [address] [place] [address] 28749- 5990 Jul, Routine health maintenance Z00.00 ; Abscess L02.91 ; H/O hidradenitis suppurativa Z87.2 ; Irregular menses N92.6 ; BMI 40.0-44.9, adult Z68.41 ; Elevated fasting glucose R73.01 and Hypertriglyceridemia E78.1 [place] [id number] [place] [address] 19416- 8698 Jul, [facility] [address], [place] [address] -0094 Jul, Hidradenitis suppurativa L73.2 [facility] [address], [place] [address]- 7457 Jul, Bipolar disorder, unspecified F31.9 ; Anxiety disorder, unspecified F41.9 and Attention deficit hyperactivity disorder F90.9 [facility] [id number] [place] [address] 17601- 9759 June, [place] [id number] [place] [address] 43350- 9764 June, [facility] [id number] [place] [address] 31726- 0723 May, [place] [id number] [place] [address] 17471- 5355 Apr, [facility] [address] [place] [address] 06460- 3380 Apr, Well woman exam Z01.419 ; BMI 40.0-44.9, adult Z68.41 ; Tobacco use Z72.0 ; Family history of diabetes mellitus Z83.3 ; Hidradenitis suppurativa L73.2 ; Routine screening for STI (sexually transmitted infection) Z11.3 ; Unprotected sexual intercourse Z72.51 and Family history of breast cancer Z80.3 [facility] [address], [place] [address]- 9429 Apr, Bipolar disorder, unspecified F31.9 ; Anxiety disorder, unspecified F41.9 and Attention deficit hyperactivity disorder F90.9 [facility] [address], [place] [address]- 5409 Mar, [facility] [address], [place] [address]- 1805 Feb, [facility] [id number] [place] [address] 73955- 0250 Feb, [place] [address] [place] [address] 56826- 4923 Jan, Encounter for test, result negative Z32.02 and BMI 40.0-44.9, adult Z68.41 [place] [id number] [place] [address] 95896- 0302 Jan, Bipolar disorder, unspecified F31.9 ; Anxiety disorder, unspecified F41.9 and Attn-defct hyperactivity disorder, predom inattentive type F90.0 [place] [id number] [place] [address] 92828- 8376 Jan, [place] [id number] [place] [address] 74517- 4086 Dec, [place] [id number] [place] [address] 01028- 3667 Dec, Bipolar disorder, unspecified F31.9 ; Attention deficit hyperactivity disorder F90.9 and Anxiety disorder, unspecified F41.9 [place] [id number] [place] [address] 97181- 9326 27 Nov, 2014 Irregular menses N92.6 ; Unprotected sexual intercourse Z72.51 ; Screening for STD sexually transmitted disease Z11.3 ; General counseling and advice for contraceptive management Z30.09 ; Oral contraceptive pill surveillance Z30.41 ; BMI 40.0-44.9, adult Z68.41 and H/O hidradenitis suppurativa Z87.2 [facility] [id number] [place] [address] [id number] Sep, Dental examination V72.2 [place] [id number] [place] [address] 44502- 2023 Sep, Screen for STD (sexually transmitted disease) V74.5 and General counseling on prescription of oral contraceptives V25.01 [place] [address] [place] [address] 55406- 8154 May, [facility] [place] [facility] [address] [id number] [place] [address]- 2203 May, [facility] [place] [facility] [address] [id number] [place] [address]- 3424 Apr, [facility] [place] [facility] [address] [id number] [place] 1357 Apr, [facility] [place] [facility] [address] [id number] [place] [address]- 7527 Apr, [facility] [place] [facility] [address] [id number] [place] [address]- 7533 Apr, [facility] [place] [facility] [address] [id number] [place] [address]- 3744 Apr, [facility] [place] [facility] [address] [facility] [id number] [place] [address]- 4608 Apr, [facility] [place] [facility] [address] [facility] [id number] [place] [address]- 4253 Apr, [facility] [place] [facility] [address] [facility] [id number] [place] [address]- 8854 Mar, [facility] [place] [facility] [address] [facility] [id number] [place] [address]- 7256 Mar, [facility] [place] [facility] [address] [facility] [id number] [place] [address]- 4632 Mar, [facility] [place] [facility] [address] [facility] [id number] [address]- 2455 Mar, [facility] [place] [facility] [address] [facility] [id number] [place] [address]- 7029 Mar, [facility] [place] [facility] [address] [id number] [place] [address]- 8429 Mar, [facility] [place] [facility] [address] [facility] [id number] [place] [address]- 3800 Jan, [facility] [place] [facility] [address] [facility] [id number], [place] [address]- 6014 Jan, [facility] [place] [facility] [address] [id number] [place] [address]- 9318 Dec, [facility] [place] [facility] [address] [id number] [place] [address]- 5793 Dec, [facility] [place] [facility] [address] [id number] [place] [address]- 2188 Dec, [facility] [place] [facility] [address] [id number] [place] [address]- 7791 Dec, [facility] [place] [facility] [address] [id number] [place] [address]- 0473 Sep, [facility] [place] [facility] [address] [id number] [place] [address]- 4838 Sep, [facility] [place] [facility] [address] [facility] [id number] [place] [address]- 9650 Apr, [facility] [place] [facility] [address] [facility] [id number] [place] [address]- 5994 Apr, [facility] [place] [facility] [address] [facility] [id number] [place] [address]- 5210 Mar, [facility] [place] [facility] [address] [facility] [id number] [place] [address]- 1597 Mar, [facility] [place] [facility] [address] [facility] [id number] [place] [address]- 0541 Mar, [facility] [place] [facility] [address] [facility] [id number] [place] [address]- 2806 Mar, [facility] [place] [facility] [address] [id number] [place] [address] Jan, [facility] [place] [facility] [address] [id number] [place] [address] Jan, [facility] [place] [facility] [address] [id number], [place] [address] Dec, [facility] [address] [facility] [id number] [place] [address] Dec, [facility] [address] [facility] [id number], [place] [address] Dec, IMMUNIZATIONS No Known Immunizations SOCIAL HISTORY Never Assessed REASON FOR VISIT OB 2 wk f/u-Saravanan, Lower back pain , Wart on chest that she wants removed PLAN OF CARE Activity Details Follow Up 2 Weeks Reason: VITAL SIGNS Height 64 in 2017-03-22 Weight 302.6 lbs 2017-03-22 Temperature 97.7 degrees Fahrenheit 2017-03-22 Heart Rate 100 bpm 2017-03-22 Respiratory Rate 20 2017-03-22 BMI 51.941 kg/m2 2017-03-22 Blood pressure systolic 110 mmHg 2017-03-22 Blood pressure diastolic 60 mmHg 2017-03-22 MEDICATIONS Medication Instructions Dosage Frequency Start Date End Date Duration Status Lancets - test blood sugar Feb, Active Metformin HCl 500 MG Orally Twice a day 1 tablet with meals 12h Feb, 30 day(s) Active Ranitidine HCl 75 MG Orally Twice a day 1 tablet as needed 12h 12 Jan, 2017 Active Vitamins - (Dis) Active Blood Glucose Monitor System w/Device as directed Feb, Active Blood Glucose Test Strip test strips test blood sugar Feb, Active RESULTS Name Result Date Reference Range UA OB DIP (IN HOUSE) 2017-03-22 Glucose negative Protein trace Biophysical Profile () w/ NST 2017-03-28 PROCEDURES Procedure Date Ordered Result Body Site URINE-NO MICRO Mar 22, 2017 INSTRUCTIONS MEDICATIONS ADMINISTERED No Known Medications MEDICAL (GENERAL) HISTORY Type Description Date Medical History Hidradenitis Supprativa Medical History Bipolar Disorder Medical History ADHD Surgical History pilonidal cyst removal tailbone Surgical History 2018 Hospitalization History Dehydration & concussion 07/23/2016 Hospitalization History child 2018
--- OUTSIDE RECORDS SUMMARY | 2017-09-24 22:45 | XMS REPORT ---
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 Active [id number] Problem Anxiety disorder, unspecified F41.9 Active 430494840 Problem Lesion of sciatic nerve, left lower limb G57.02 Active 731812360390953 Problem Abdominal pannus E65 Active 8280237817312 Problem Obesity during in third trimester O99.213 Active 309924462 Problem Post depression F53 Active 71823656 Problem Gestational diabetes mellitus (GDM) in third trimester, gestational diabetes method of control unspecified O24.419 Active 78881282 Problem Lumbago with sciatica, left side M54.42 Active 201029387 Problem Lumbago with sciatica, right side M54.41 Active 441635445 Problem Bipolar disorder, unspecified F31.9 Active 81616977 Problem Hypertriglyceridemia E78.1 Active 953779125 Problem Attention deficit hyperactivity disorder F90.9 Active 362885073 Problem Metabolic syndrome E88.81 Active 549931852 Problem Other chronic pain G89.29 Active 70700982 Problem Obesity affecting in second trimester O99.212 Active 696521447641 Problem Suppurative hidradenitis L73.2 Active 55624056 Problem Gastro-esophageal reflux disease without esophagitis K21.9 Active 126996381 ALLERGIES No Information ENCOUNTERS Encounter Location Date Diagnosis [facility] [address] [facility] [id number] [address] Oct, [place] [address] [place] [address] 15602- 9834 Jul, Bipolar disorder, unspecified F31.9 [place] [address] [place] [address] 01141- 1174 Jul, Bipolar disorder, unspecified F31.9 ; Attention deficit hyperactivity disorder F90.9 and BMI 50.0-59.9, adult Z68.43 [place] [address] [address] 14 Jul, 2017 Somatic dysfunction of pelvis region M99.05 ; Somatic dysfunction of sacral region M99.04 ; Somatic dysfunction of lumbar region M99.03 ; Lesion of sciatic nerve, left lower limb G57.02 ; Lesion of sciatic nerve, 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 and BMI 50.0-59.9, adult Z68.43 [place] [address] [place] [id number] [place] [address] 84756- 1708 June, [place] [address] [place] [id number] [place] [address] 27621- 4808 June, Bipolar disorder, unspecified F31.9 ; Attention deficit hyperactivity disorder F90.9 ; High risk medication use Z79.899 and BMI 50.0- 59.9, adult Z68.43 [place] [address] [address] June, [place] [address] [place] [id number] [place] [address] 75570- 6690 June, Hidradenitis suppurativa L73.2 and BMI 50.0-59.9, adult Z68.43 [place] [address] [place] [address] 64358- 9563 June, Bipolar disorder, unspecified F31.9 and BMI 50.0-59.9, adult Z68.43 [place] [address] [place] [address] 16778- 0805 May, [place] [address] [place] [id number] [place] [address] 70496- 3408 May, Lumbago with sciatica, left side M54.42 ; care and examination Z39.2 ; Lumbago with sciatica, right side M54.41 ; Other chronic pain G89.29 ; BMI 50.0-59.9, adult Z68.43 ; Abdominal pannus E65 ; Suppurative hidradenitis L73.2 and Post depression F53 [place] [address] [place] [id number] [place] [address] 83390- 9410 Apr, [place] [address] 68167- 8805 Apr, Abdominal pannus E65 and BMI 45.0-49.9, adult Z68.42 [place] [address] 02545- 8423 Apr, Screening for iron deficiency anemia Z13.0 [place] [address] [place] [id number] [place] [address] 99050- 0497 15 Apr, 2017 Bipolar disorder, unspecified F31.9 [place] [address] [place] [id number] [place] [address] 19284- 6975 07 Apr, 2017 Obesity during in third trimester O99.213 ; Third trimester Z34.93 ; Gestational diabetes mellitus (GDM) in third trimester controlled on oral hypoglycemic drug O24.415 ; 37 weeks gestation of Z3A.37 and Oligohydramnios in third trimester, single or unspecified fetus O41.03X0 [place] [address] [place] [id number] [place] [address] 27503- 1912 Mar, Third trimester Z34.93 [place] [address] [place] [id number] [place] [address] 40758- 0170 26 Mar, 2017 Gestational diabetes mellitus (GDM) in third trimester controlled on oral hypoglycemic drug O24.415 [place] [address] 61801- 3301 Mar, [place] [address] [place] [address] 01484- 6584 Mar, Third trimester Z34.93 ; Gestational diabetes mellitus (GDM) in third trimester controlled on oral hypoglycemic drug O24.415 and 35 weeks gestation of Z3A.35 [place] [address] [place] [id number] [place] [address] 90234- 4990 15 Mar, 2017 BMI 50.0-59.9, adult Z68.43 and Bipolar disorder, unspecified F31.9 [place] [address] [place] [id number] [place] [address] 75927- 5803 13 Mar, 2017 Diet controlled gestational diabetes mellitus (GDM), antepartum O24.410 [place] [address] [place] [id number] [place] [address] 05646- 1350 07 Mar, 2017 33 weeks gestation of Z3A.33 ; Gestational diabetes mellitus (GDM) in third trimester controlled on oral hypoglycemic drug O24.415 ; Third trimester Z34.93 and Obesity affecting in third trimester O99.213 [place] [address] [place] [id number] [place] [address] 34159- 4907 Mar, [place] [address] [place] [address] 15654- 3920 Feb, Third trimester Z34.93 ; Encounter for immunization Z23 ; Gestational diabetes mellitus (GDM) in third trimester controlled on oral hypoglycemic drug O24.415 ; Obesity during in third trimester O99.213 and 31 weeks gestation of Z3A.31 [place] [address] [place] [address] 38976- 9444 Feb, [place] [address] [place] [id number] [place] [address] 16632- 0234 Feb, Gestational diabetes mellitus (GDM) in third trimester, gestational diabetes method of control unspecified O24.419 [place] [address] [place] [id number] [place] [address] 74895- 8878 Feb, [place] [address] [place] [id number] [place] [address] 41065- 2404 Feb, [place] [address] 30431- 9229 Feb, Bipolar disorder, unspecified F31.9 and BMI 50.0-59.9, adult Z68.43 [place] [address] 89912- 2423 10 Feb, 2017 29 weeks gestation of Z3A.29 ; Gestational diabetes mellitus (GDM) in third trimester, gestational diabetes method of control unspecified O24.419 ; Third trimester Z34.93 ; Obesity affecting in third trimester O99.213 and BMI 50.0-59.9, adult Z68.[address] 47424- 3102 15 Jan, 2017 Abnormal glucose tolerance test (GTT) R73.[address] [facility] [address] [id number] 15 Jan, 2017 Dental examination Z01.[address] 67155- 5511 14 Jan, 2017 Bipolar disorder, unspecified F31.9 [place] [id number] [place] [address] 73135- 4470 12 Jan, 2017 25 weeks gestation of Z3A.25 ; Second trimester Z34.92 ; Gastro-esophageal reflux disease without esophagitis K21.9 ; Diseases of the digestive system complicating , second trimester O99.612 ; Abnormal ultrasonic finding on screening of mother O28.3 and BMI 50.0-59.9, adult Z68.43 [place] [address] 26477- 7671 05 Jan, 2017 [place] [address] 91286- 2692 Dec, [address] 86429- 5362 Dec, Dental examination Z01.20 [facility] [address] [place] [id number] [place] [address] 63181- 4797 14 Dec, 2016 Second trimester Z34.92 ; 21 weeks gestation of Z3A.21 and Obesity affecting in second trimester O99.212 [facility] [address] [place] [id number] [place] [address] 16270- 7597 13 Dec, 2016 [facility] [address] 82618- 1044 Dec, Lump of right breast N63.10 ; Abscess of left thigh L02.416 and BMI 45.0-49.9, adult Z68.[address] [facility] [address] [place] [id number] [place] [address] [id number] 10 Dec, 2016 Dental examination Z01.20 [facility] [address] [place] [id number] [place] [address] 05397- 4257 08 Dec, 2016 [facility] [address] [place] [id number] [place] [address] 09024- 6369 Dec, Bipolar disorder, unspecified F31.9 [facility] [address] [place] [id number] [place] [address] 88941- 7912 24 Nov, 2016 [facility] [address] [place] [id number] [place] [address] 61057- 7100 Nov, [facility] [address] [place] [id number] [place] [address] 42475- 2006 Nov, 17 weeks gestation of Z3A.17 and Right non- suppurative otitis media H65.91 [facility] [address] [place] [id number] [place] [address] 00670- 0240 Nov, [facility] [address] [place] [id number] [place] [address] 65178- 3357 Nov, [facility] [address] [place] [id number] [place] [address] 14408- 6746 Nov, Bipolar disorder, unspecified F31.9 [facility] [address] [place] [id number] [address]- 0495 10 Nov, 2016 16 weeks gestation of Z3A.16 ; Second trimester Z34.92 and Obesity affecting in second trimester O99.[address] [facility] [address] [place] [id number] [address] 03 Nov, 2016 Encounter for dental examination Z01.20 [facility] [address], [place] [address]- 0624 13 Oct, 2016 [facility] [address], [place] [address]- 3502 12 Oct, 2016 12 weeks gestation of Z3A.12 ; First trimester Z34.90 and Obesity affecting in first trimester O99.211 [facility] [address], [place] [address]- 2191 Sep, [facility] [address], [place] [address]- 5083 Sep, [facility] [address] [place] [address] [address]- 7196 Sep, Bipolar disorder, unspecified F31.9 [facility] [address], [place] [address]- 0498 Sep, [facility] [address], [place] [address]- 2105 Sep, [facility] [address], [place] [address]- 9959 Sep, Normal , first Z34.00 [facility] [address] [place] [id number] [place] [address] 01438- 4630 Sep, Normal , first Z34.00 ; 8 weeks gestation of Z3A.08 and Obesity affecting in first trimester O99.211 [facility] [address], [place] [address]- 5750 Sep, Anxiety disorder, unspecified F41.9 [place] [address] [place] [id number] [place] [address] 85025- 5828 Sep, [place] [address] [place] [id number] [place] [address] 14371- 5854 Sep, Encounter for test, result unknown Z32.00 [place] [address] 59677- 6017 Aug, Anxiety disorder, unspecified F41.9 [place] [address] [place] [id number] [place] [address] 36635- 4930 Jul, Suppurative hidradenitis L73.2 ; Metabolic syndrome E88.81 ; BMI 40.0-44.9, adult Z68.41 and High risk sexual behavior Z72.51 [place] [address] [place] [id number] [place] [address] 88722- 3453 Jul, Anxiety disorder, unspecified F41.9 [place] [address] [place] [id number] [place] [address] 14721- 2833 June, Anxiety disorder, unspecified F41.9 ; Attention deficit hyperactivity disorder F90.9 and Bipolar disorder, unspecified F31.9 [place] [address] [place] [id number] [place] [address] 07947- 9861 June, Attention deficit hyperactivity disorder F90.9 [place] [address] [place] [id number] [place] [address] 38969- 1264 May, Attention deficit hyperactivity disorder F90.9 [place] [address] [place] [id number] [place] [address] 18136- 0343 Apr, Attention deficit hyperactivity disorder F90.9 [place] [address] [place] [id number] [place] [address] 16367- 6068 14 Mar, 2016 Abscess L02.91 and Screening for STD sexually transmitted disease Z11.3 [place] [address] [place] [id number] [place] [address] 75904- 1057 Mar, Attention deficit hyperactivity disorder F90.9 [facility] [address] [place] [address] 21918- 1764 Feb, Attention deficit hyperactivity disorder F90.9 [facility] [address] [place] [id number] [place] [address] 08764- 6736 Feb, Attention deficit disorder of adult F98.8 and DMDD ( disruptive mood dysregulation disorder) F34.81 [place] [address] [place] [id number] [place] [address] 31120- 7120 Jan, Exposure to sexually transmitted disease (STD) Z20.2 and Metabolic syndrome E88.81 [place] [id number] [place] [address] 08336- 4094 Jan, Possible exposure to STD Z20.2 ; BMI 40.0-44.9, adult Z68.41 ; Metabolic syndrome E88.81 ; Elevated fasting glucose R73.01 and Hypertriglyceridemia E78.1 [place] [address] [place] [address] 33499- 9181 Jan, Possible exposure to STD Z20.2 ; Lumbago with sciatica, left side M54.42 ; Lumbago with sciatica, right side M54.41 ; BMI 40.0-44.9, adult Z68.41 ; Metabolic syndrome E88.81 ; Elevated fasting glucose R73.01 ; Hypertriglyceridemia E78.1 and Suppurative hidradenitis L73.2 [place] [address] [place] [address] 75972- 3805 Dec, Attention deficit hyperactivity disorder F90.9 [place] [address] [place] [address] 52030- 3345 Dec, [place] [address] [place] [id number] [place] [address] 50673- 0540 Nov, [place] [address] [place] [id number] [place] [address] 44074- 1954 Nov, [place] [address] [place] [address]- 4583 Nov, [place] [address] [place] [id number] [place] [address] 98816- 1041 Nov, [place] [address] [place] [id number] [place] [address] 03694- 1977 30 Oct, 2015 Other chronic pain G89.29 and Lumbago with sciatica, left side M54.42 [place] [address] [place] [id number] [place] [address] 99091- 5970 22 Oct, 2015 Lumbago with sciatica, left side M54.42 ; Lumbago with sciatica, right side M54.41 ; Other chronic pain G89.29 and Suppurative hidradenitis L73.2 [place] [address] [place] [id number] [place] [address] 41569- 1958 Oct, [place] [address] [place] [id number] [place] [address] 26559- 0210 Sep, [place] [address] [place] [id number] [place] [address] 01394- 3484 Sep, Unprotected sexual intercourse Z72.51 ; Hidradenitis suppurativa L73.2 ; Elevated fasting glucose R73.01 ; BMI 40.0-44.9, adult Z68.41 and Irregular menses N92.6 [place] [address] [place] [id number] [place] [address] 37315- 9084 Aug, [place] [address] [place] [id number] [place] [address] 22989- 6798 24 Jul, 2015 Routine health maintenance Z00.00 ; Abscess L02.91 ; H/O hidradenitis suppurativa Z87.2 ; Irregular menses N92.6 ; BMI 40.0-44.9, adult Z68.41 ; Elevated fasting glucose R73.01 and Hypertriglyceridemia E78.1 [place] [address] [place] [address] 66687- 5314 Jul, [facility] [address], [place] [address] -0122 08 Jul, 2015 Hidradenitis suppurativa L73.2 [facility] [address], [place] [address]- 3210 Jul, Bipolar disorder, unspecified F31.9 ; Anxiety disorder, unspecified F41.9 and Attention deficit hyperactivity disorder F90.9 [place] [address], [place] [address]- 1585 June, [place] [address] [place] [id number] [place] [address] 14066- 6073 June, [place] [address] [place] [id number] [place] [address] 57404- 0925 May, [place] [address], [place] [address]- 3525 Apr, [place] [address] [place] [address] 98794- 0928 Apr, Well woman exam Z01.419 ; BMI 40.0-44.9, adult Z68.41 ; Tobacco use Z72.0 ; Family history of diabetes mellitus Z83.3 ; Hidradenitis suppurativa L73.2 ; Routine screening for STI (sexually transmitted infection) Z11.3 ; Unprotected sexual intercourse Z72.51 and Family history of breast cancer Z80.3 [place] [address], [place] [address]- 3173 Apr, Bipolar disorder, unspecified F31.9 ; Anxiety disorder, unspecified F41.9 and Attention deficit hyperactivity disorder F90.9 [place] [address], [place] [address]- 1435 Mar, [facility] [address], [place] [address]- 5737 Feb, [place] [address] [place] [id number], [place] [address]- 4905 Feb, [place] [address] [place] [address] 61777- 1578 Jan, Encounter for test, result negative Z32.02 and BMI 40.0-44.9, adult Z68.41 [place] [address] [place] [id number] [place] [address] 22247- 7706 Jan, Bipolar disorder, unspecified F31.9 ; Anxiety disorder, unspecified F41.9 and Attn-defct hyperactivity disorder, predom inattentive type F90.0 [place] [address] [place] [id number] [place] [address] 00156- 5642 Jan, [place] [address] 21987- 5143 Dec, [place] [address] [place] [id number] [place] [address] 53561- 0888 Dec, Bipolar disorder, unspecified F31.9 ; Attention deficit hyperactivity disorder F90.9 and Anxiety disorder, unspecified F41.9 [place] [address] [place] [id number] [place] [address] 60476- 6046 Nov, Irregular menses N92.6 ; Unprotected sexual intercourse Z72.51 ; Screening for STD sexually transmitted disease Z11.3 ; General counseling and advice for contraceptive management Z30.09 ; Oral contraceptive pill surveillance Z30.41 ; BMI 40.0-44.9, adult Z68.41 and H/O hidradenitis suppurativa Z87.[address] [facility] [address] [place] [address] [id number] Sep, Dental examination V72.2 [place] [address] [place] [id number] [place] [address] 83911- 1678 Sep, Screen for STD (sexually transmitted disease) V74.5 and General counseling on prescription of oral contraceptives V25.01 [place] [address] [place] [id number] [place] [address] 84860- 8167 May, [place] [address] [place] [id number] [place] [address] 74253- 9599 May, [facility] [place] [facility] [address] [id number] [place] [address]- 3479 Apr, [facility] [place] [facility] [address] [facility] [id number] [place] [address]- 1589 Apr, [facility] [place] [facility] [address] [facility] [id number] [place] [address]- 9216 Apr, [facility] [place] [facility] [address] [facility] [id number] [place] [address]- 3366 Apr, [facility] [place] [facility] [address] [facility] [id number] [place] [address]- 4137 Apr, [facility] [place] [facility] [address] [facility] [id number] [place] [address]- 1752 Apr, [facility] [place] [facility] [address] [place] [id number] [place] [address]- 1457 Apr, [facility] [place] [facility] [address] [facility] [id number] [place] [address]- 2706 Mar, [facility] [place] [facility] [address] [place] [id number] [place] [address]- 0425 Mar, 2014 [facility] [place] [facility] [address] [facility] [id number] [place] [address]- 4911 Mar, 2014 [facility] [place] [facility] [address] [place] [id number] [place] [address]- 7736 Mar, 2014 [facility] [place] [facility] [address] [facility] [id number] [address]- 7399 Mar, 2014 [facility] [place] [facility] [address] [facility] [id number] [place] 3650 Mar, 2014 [facility] [place] [facility] [address] [facility] [id number] [place] [address]- 0371 Jan, [facility] [place] [facility] [address] [facility] [id number], [place] [address]- 0162 Jan, [facility] [place] [facility] [address] [id number] [place] [address]- 5663 Dec, [facility] [place] [facility] [address] [id number] [place] [address]- 4247 Dec, [facility] [place] [facility] [address] [id number] [place] [address]- 2019 Dec, [facility] [place] [facility] [address] [id number] [place] [address]- 4632 Dec, [facility] [place] [facility] [address] [id number] [place] [address]- 0790 Sep, [facility] [place] [facility] [address] [id number] [place] [address]- 9640 Sep, [facility] [place] [facility] [address] [id number] [place] [address]- 0956 Apr, [facility] [place] [facility] [address] [id number] [place] [address]- 2611 Apr, [facility] [place] [facility] [address] [id number] [place] [address]- 5717 Mar, [facility] [place] [facility] [address] [id number] [place] [address]- 5271 Mar, [facility] [place] [facility] [address] [id number] [place] [address]- 7516 Mar, [facility] [place] [facility] [address] [id number], [place] [address]- 1572 Mar, [facility] [place] [facility] [address] [id number] [place] [address] Jan, [facility] [place] [facility] [address] [id number] [place] [address] Jan, [facility] [place] [facility] [address] [id number] [place] [address] Dec, [facility] [place] [facility] [address] [id number], [place] [address] Dec, [facility] [address] [facility] [id number] [place] [address] Dec, IMMUNIZATIONS No Known Immunizations SOCIAL HISTORY Never Assessed REASON FOR VISIT OB 1 wk f/u -- yoan crowder PLAN OF CARE Activity Details Follow Up IOL today Reason: VITAL SIGNS Height 64 in 2017-04-19 Weight 304 lbs 2017-04-19 Temperature 98.0 degrees Fahrenheit 2017-04-19 BMI 52.181 kg/m2 2017-04-19 Blood pressure systolic 120 mmHg 2017-04-19 Blood pressure diastolic 76 mmHg 2017-04-19 MEDICATIONS Medication Instructions Dosage Frequency Start Date End Date Duration Status Vitamins - (Dis) Active Ranitidine HCl 75 MG Orally Twice a day 1 tablet as needed 12h Jan, Active Blood Glucose Test Strip test strips ONE TOUCH 4 times a day DX: O24.419 test blood sugar Feb, Active Metformin HCl 500 mg Orally Twice a day 2 tablets with breakfast, 1 tablet with dinner 12h 16 Feb, 2017 Active Blood Glucose Monitor System w/Device as directed Feb, Active Lancets - test blood sugar Feb, Active RESULTS Name Result Date Reference Range UA OB DIP (IN HOUSE) 2017-04-19 Glucose neg Protein trace PROCEDURES Procedure Date Ordered Result Body Site URINE-NO MICRO April 19, 2017 INSTRUCTIONS MEDICATIONS ADMINISTERED No Known Medications MEDICAL (GENERAL) HISTORY Type Description Date Medical History Hidradenitis Supprativa Medical History Bipolar Disorder Medical History ADHD Surgical History pilonidal cyst removal tailbone Surgical History 2018 Hospitalization History Dehydration & concussion 07/23/2016 Hospitalization History child 2018
--- OUTSIDE RECORDS SUMMARY | 2017-09-24 22:45 | XMS REPORT ---
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 Active [id number] Problem Anxiety disorder, unspecified F41.9 Active 284850261 Problem Lesion of sciatic nerve, left lower limb G57.02 Active 350579242306178 Problem Abdominal pannus E65 Active 5212328981848 Problem Obesity during in third trimester O99.213 Active 947190678 Problem Post depression F53 Active 08750522 Problem Gestational diabetes mellitus (GDM) in third trimester, gestational diabetes method of control unspecified O24.419 Active 92380528 Problem Lumbago with sciatica, left side M54.42 Active 057373049 Problem Lumbago with sciatica, right side M54.41 Active 104765100 Problem Bipolar disorder, unspecified F31.9 Active 82350355 Problem Hypertriglyceridemia E78.1 Active 945543869 Problem Attention deficit hyperactivity disorder F90.9 Active 813944535 Problem Metabolic syndrome E88.81 Active 070592424 Problem Other chronic pain G89.29 Active 88915818 Problem Obesity affecting in second trimester O99.212 Active 485166995324 Problem Suppurative hidradenitis L73.2 Active 48787079 Problem Gastro-esophageal reflux disease without esophagitis K21.9 Active 858078361 ALLERGIES Substance Reaction Event Type Date Status Bees anaphylaxis Non Drug Allergy Nov, Active ENCOUNTERS Encounter Location Date Diagnosis [place] [id number] [address] Oct, [place] [address] [id number] [place] [address] 98634- 8412 Jul, Bipolar disorder, unspecified F31.9 [place] [id number] [place] [address] 45353- 2521 Jul, Bipolar disorder, unspecified F31.9 ; Attention deficit hyperactivity disorder F90.9 and BMI 50.0-59.9, adult Z68.43 [place] [address] [place] [address] 73697- 4957 14 Jul, 2017 Somatic dysfunction of pelvis region M99.05 ; Somatic dysfunction of sacral region M99.04 ; Somatic dysfunction of lumbar region M99.03 ; Lesion of sciatic nerve, left lower limb G57.02 ; Lesion of sciatic nerve, 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 and BMI 50.0-59.9, adult Z68.43 [place] [id number] [place] [address] 10357- 1574 June, [place] [id number] [place] [address] 07803- 2292 June, Bipolar disorder, unspecified F31.9 ; Attention deficit hyperactivity disorder F90.9 ; High risk medication use Z79.899 and BMI 50.0- 59.9, adult Z68.43 [place] [address], [place] [address] June, [place] [address], [place] [address] June, Hidradenitis suppurativa L73.2 and BMI 50.0-59.9, adult Z68.43 [place] [address], [place] [address] June, Bipolar disorder, unspecified F31.9 and BMI 50.0-59.9, adult Z68.43 [place] [address] [address] [id number] [place] [address] 30843- 9070 May, [place] [id number] [place] [address] 60478- 9450 May, Lumbago with sciatica, left side M54.42 ; care and examination Z39.2 ; Lumbago with sciatica, right side M54.41 ; Other chronic pain G89.29 ; BMI 50.0-59.9, adult Z68.43 ; Abdominal pannus E65 ; Suppurative hidradenitis L73.2 and Post depression F53 [place] [id number] [place] [address] 06704- 0390 Apr, [place] [id number] [place] [address] 59579- 9028 Apr, Abdominal pannus E65 and BMI 45.0-49.9, adult Z68.42 [place] [id number] [place] [address] 64503- 7326 Apr, Screening for iron deficiency anemia Z13.0 [facility] [id number] [place] [address] 78733- 0543 15 Apr, 2017 Bipolar disorder, unspecified F31.9 [place] [id number] [place] [address] 94401- 4806 07 Apr, 2017 Obesity during in third trimester O99.213 ; Third trimester Z34.93 ; Gestational diabetes mellitus (GDM) in third trimester controlled on oral hypoglycemic drug O24.415 ; 37 weeks gestation of Z3A.37 and Oligohydramnios in third trimester, single or unspecified fetus O41.03X0 [place] [id number] [place] [address] 77910- 0716 Mar, Third trimester Z34.93 [place] [id number] [place] [address] 94161- 6627 Mar, Gestational diabetes mellitus (GDM) in third trimester controlled on oral hypoglycemic drug O24.415 [place] [id number] [place] [address] 21568- 3972 Mar, [place] [id number] [place] [address] 75440- 0596 22 Mar, 2017 Third trimester Z34.93 ; Gestational diabetes mellitus (GDM) in third trimester controlled on oral hypoglycemic drug O24.415 and 35 weeks gestation of Z3A.35 [place] [id number] [place] [address] 95931- 2924 15 Mar, 2017 BMI 50.0-59.9, adult Z68.43 and Bipolar disorder, unspecified F31.9 [place] [id number] [place] [address] 87024- 8808 13 Mar, 2017 Diet controlled gestational diabetes mellitus (GDM), antepartum O24.410 [place] [id number] [place] [address] 64868- 2645 07 Mar, 2017 33 weeks gestation of Z3A.33 ; Gestational diabetes mellitus (GDM) in third trimester controlled on oral hypoglycemic drug O24.415 ; Third trimester Z34.93 and Obesity affecting in third trimester O99.213 [place] [id number] [place] [address] 87079- 0978 01 Mar, 2017 [place] [address] [place] [address] 95307- 3285 Feb, Third trimester Z34.93 ; Encounter for immunization Z23 ; Gestational diabetes mellitus (GDM) in third trimester controlled on oral hypoglycemic drug O24.415 ; Obesity during in third trimester O99.213 and 31 weeks gestation of Z3A.31 [place] [id number] [place] [address] 71532- 3718 Feb, [place] [id number] [place] [address] 80772- 5853 Feb, Gestational diabetes mellitus (GDM) in third trimester, gestational diabetes method of control unspecified O24.419 [place] [address] [place] [address] 16 Feb, 2017 [place] [address] [address] [id number] [place] [address] 32146- 8168 Feb, [place] [id number] [place] [address] 72876- 1257 Feb, Bipolar disorder, unspecified F31.9 and BMI 50.0-59.9, adult Z68.43 [place] [address] 58630- 1062 10 Feb, 2017 29 weeks gestation of Z3A.29 ; Gestational diabetes mellitus (GDM) in third trimester, gestational diabetes method of control unspecified O24.419 ; Third trimester Z34.93 ; Obesity affecting in third trimester O99.213 and BMI 50.0-59.9, adult Z68.[address] [address]- 7648 15 Jan, 2017 Abnormal glucose tolerance test (GTT) R73.02 [facility] [address] [id number] 15 Jan, 2017 Dental examination Z01.20 [place] [id number] [place] [address] 07531- 4577 14 Jan, 2017 Bipolar disorder, unspecified F31.9 [place] [address] [address] [id number] [place] [address] 32694- 1525 12 Jan, 2017 25 weeks gestation of Z3A.25 ; Second trimester Z34.92 ; Gastro-esophageal reflux disease without esophagitis K21.9 ; Diseases of the digestive system complicating , second trimester O99.612 ; Abnormal ultrasonic finding on screening of mother O28.3 and BMI 50.0-59.9, adult Z68.43 [place] [id number] [place] [address] 57101- 2072 05 Jan, 2017 [place] [id number] [place] [address] 55046- 5445 Dec, [address] [place] [id number] [place] [address] 96326- 1132 14 Dec, 2016 Dental examination Z01.20 [facility] [id number] [place] [address] 50955- 5821 14 Dec, 2016 Second trimester Z34.92 ; 21 weeks gestation of Z3A.21 and Obesity affecting in second trimester O99.212 [facility] [address] 13498- 6622 13 Dec, 2016 [facility] [address] 48607- 5943 10 Dec, 2016 Lump of right breast N63.10 ; Abscess of left thigh L02.416 and BMI 45.0-49.9, adult Z68.42 [facility] [address] [place] [id number] [place] [address] [id number] 10 Dec, 2016 Dental examination Z01.20 [facility] [address] 91819- 3615 08 Dec, 2016 [facility] [address] 46126- 2442 Dec, Bipolar disorder, unspecified F31.9 [facility] [address] [address] [id number] [place] [address] 36221- 8297 24 Nov, 2016 [facility] [address] [id number] [place] [address] 41883- 8388 Nov, [facility] [address] [address] [id number] [place] [address] 84157- 2610 Nov, 17 weeks gestation of Z3A.17 and Right non- suppurative otitis media H65.91 [facility] [address] [address] [id number] [place] [address] 08510- 6707 16 Nov, 2016 [facility] [address] [address] [id number] [place] [address] 37610- 0986 Nov, [facility] [id number] [place] [address] 03732- 5048 Nov, Bipolar disorder, unspecified F31.9 [facility] [address], [place] [address]- 8526 10 Nov, 2016 16 weeks gestation of Z3A.16 ; Second trimester Z34.92 and Obesity affecting in second trimester O99.212 [facility] [address] [address] 03 Nov, 2016 Encounter for dental examination Z01.20 [facility] [id number] [place] [address] 54260- 9388 13 Oct, 2016 [facility] [id number] [place] [address] 09076- 1840 12 Oct, 2016 12 weeks gestation of Z3A.12 ; First trimester Z34.90 and Obesity affecting in first trimester O99.211 [facility] [id number] [place] [address] 36636- 0608 Sep, [facility] [id number] [place] [address] 99551- 9567 Sep, [facility] [id number] [place] [address] 52876- 9311 Sep, Bipolar disorder, unspecified F31.9 [facility] [address], [place] [address]- 9215 Sep, [facility] [address], [place] [address]- 2316 Sep, [facility] [address], [place] [address]- 2571 Sep, Normal , first Z34.00 [facility] [id number] [place] [address] 34137- 2973 15 Sep, 2016 Normal , first Z34.00 ; 8 weeks gestation of Z3A.08 and Obesity affecting in first trimester O99.211 [facility] [id number] [place] [address] 03547- 9933 Sep, Anxiety disorder, unspecified F41.9 [place] [id number] [place] [address] 44908- 5640 Sep, [place] [address] [id number] [place] [address] 93672- 8264 Sep, Encounter for test, result unknown Z32.00 [place] [id number] [place] [address] 00934- 4016 Aug, Anxiety disorder, unspecified F41.9 [place] [id number] [place] [address] 03061- 4323 Jul, Suppurative hidradenitis L73.2 ; Metabolic syndrome E88.81 ; BMI 40.0-44.9, adult Z68.41 and High risk sexual behavior Z72.51 [place] [address] 82787- 6862 Jul, Anxiety disorder, unspecified F41.9 [place] [id number] [place] [address] 98208- 7851 June, Anxiety disorder, unspecified F41.9 ; Attention deficit hyperactivity disorder F90.9 and Bipolar disorder, unspecified F31.9 [place] [address] [id number] [place] [address] 14927- 2030 June, Attention deficit hyperactivity disorder F90.9 [place] [id number] [place] [address] 44634- 3012 May, Attention deficit hyperactivity disorder F90.9 [place] [address] [place] [address] 74963- 6781 Apr, Attention deficit hyperactivity disorder F90.9 [place] [id number] [place] [address] 39504- 2527 14 Mar, 2016 Abscess L02.91 and Screening for STD sexually transmitted disease Z11.3 [place] [id number] [place] [address] 65914- 0743 Mar, Attention deficit hyperactivity disorder F90.9 [place] [id number] [place] [address] 20066- 3152 Feb, Attention deficit hyperactivity disorder F90.9 [place] [id number] [place] [address] 55325- 0321 Feb, Attention deficit disorder of adult F98.8 and DMDD ( disruptive mood dysregulation disorder) F34.81 [place] [id number] [place] [address] 53494- 4749 Jan, Exposure to sexually transmitted disease (STD) Z20.2 and Metabolic syndrome E88.81 [place] [id number] [place] [address] 53185- 6289 Jan, Possible exposure to STD Z20.2 ; BMI 40.0-44.9, adult Z68.41 ; Metabolic syndrome E88.81 ; Elevated fasting glucose R73.01 and Hypertriglyceridemia E78.1 [place] [address] [place] [address] 78276- 5298 Jan, Possible exposure to STD Z20.2 ; Lumbago with sciatica, left side M54.42 ; Lumbago with sciatica, right side M54.41 ; BMI 40.0-44.9, adult Z68.41 ; Metabolic syndrome E88.81 ; Elevated fasting glucose R73.01 ; Hypertriglyceridemia E78.1 and Suppurative hidradenitis L73.2 [place] [address], [place] [address]- 8368 Dec, Attention deficit hyperactivity disorder F90.9 [place] [address] [place] [address] 22692- 2823 Dec, [place] [id number] [place] [address] 98025- 0899 Nov, [place] [id number] [place] [address] 16801- 2751 Nov, [place] [address], [place] [address]- 9736 Nov, [place] [id number] [place] [address] 82069- 3428 Nov, [place] [id number] [place] [address] 47860- 5731 Oct, Lumbago with sciatica, left side M54.42 and Other chronic pain G89.29 [place] [id number] [place] [address] 87924- 7285 Oct, Lumbago with sciatica, left side M54.42 ; Lumbago with sciatica, right side M54.41 ; Other chronic pain G89.29 and Suppurative hidradenitis L73.2 [place] [address], [place] [address]- 3591 Oct, [place] [id number] [place] [address] 53056- 6444 Sep, [place] [id number] [place] [address] 38192- 6228 Sep, Unprotected sexual intercourse Z72.51 ; Hidradenitis suppurativa L73.2 ; Elevated fasting glucose R73.01 ; BMI 40.0-44.9, adult Z68.41 and Irregular menses N92.6 [place] [address] [place] [address] 82511- 4367 Aug, [place] [address] [place] [address] 10635- 8751 Jul, Routine health maintenance Z00.00 ; Abscess L02.91 ; H/O hidradenitis suppurativa Z87.2 ; Irregular menses N92.6 ; BMI 40.0-44.9, adult Z68.41 ; Elevated fasting glucose R73.01 and Hypertriglyceridemia E78.1 [place] [address] [place] [address] 45434- 1670 Jul, [facility] [address], [place] [address] Jul, Hidradenitis suppurativa L73.2 [facility] [address] [place] [address] 66335- 8973 Jul, Bipolar disorder, unspecified F31.9 ; Anxiety disorder, unspecified F41.9 and Attention deficit hyperactivity disorder F90.9 [facility] [id number] [place] [address] 42012- 8855 June, [place] [id number] [place] [address] 68033- 9654 June, [facility] [id number] [place] [address] 28790- 3594 May, [place] [id number] [place] [address] 30509- 1727 Apr, [place] [id number] [place] [address] 17173- 8187 Apr, Well woman exam Z01.419 ; BMI 40.0-44.9, adult Z68.41 ; Tobacco use Z72.0 ; Family history of diabetes mellitus Z83.3 ; Hidradenitis suppurativa L73.2 ; Routine screening for STI (sexually transmitted infection) Z11.3 ; Unprotected sexual intercourse Z72.51 and Family history of breast cancer Z80.3 [facility] [address] [place] [address] 40103- 7711 Apr, Bipolar disorder, unspecified F31.9 ; Anxiety disorder, unspecified F41.9 and Attention deficit hyperactivity disorder F90.9 [facility] [id number] [place] [address] 92168- 8701 Mar, [facility] [id number] [place] [address] 79122- 5511 Feb, [facility] [id number] [place] [address] 10156- 6652 Feb, [place] [address] [place] [address] 24703- 1163 Jan, Encounter for test, result negative Z32.02 and BMI 40.0-44.9, adult Z68.41 [place] [id number] [place] [address] 89376- 0073 Jan, Bipolar disorder, unspecified F31.9 ; Anxiety disorder, unspecified F41.9 and Attn-defct hyperactivity disorder, predom inattentive type F90.0 [place] [id number] [place] [address] 17083- 6764 Jan, [place] [id number] [place] [address] 30657- 5024 Dec, [place] [id number] [place] [address] 82953- 2818 Dec, Bipolar disorder, unspecified F31.9 ; Attention deficit hyperactivity disorder F90.9 and Anxiety disorder, unspecified F41.9 [place] [id number] [place] [address] 19301- 5106 Nov, Irregular menses N92.6 ; Unprotected sexual intercourse Z72.51 ; Screening for STD sexually transmitted disease Z11.3 ; General counseling and advice for contraceptive management Z30.09 ; Oral contraceptive pill surveillance Z30.41 ; BMI 40.0-44.9, adult Z68.41 and H/O hidradenitis suppurativa Z87.2 [facility] [address] [place] [address] [id number] Sep, Dental examination V72.2 [place] [id number] [place] [address] 58406- 9783 Sep, Screen for STD (sexually transmitted disease) V74.5 and General counseling on prescription of oral contraceptives V25.01 [place] [address] [place] [address] 87052- 3277 May, [facility] [place] [facility] [address] [id number] [place] [address]- 6664 May, [facility] [place] [facility] [address] [id number] [place] [address]- 7957 Apr, [facility] [place] [facility] [address] [id number] [place] [address]- 9387 Apr, [facility] [place] [facility] [address] [id number] [place] [address]- 0194 Apr, [facility] [place] [facility] [address] [id number] [place] [address]- 9791 Apr, [facility] [place] [facility] [address] [id number] [place] [address]- 9027 Apr, [facility] [place] [facility] [address] [facility] [id number] [place] [address]- 2463 Apr, [facility] [place] [facility] [address] [id number] [place] [address]- 0698 Apr, [facility] [place] [facility] [address] [id number] [place] [address]- 2754 Mar, [facility] [place] [facility] [address] [facility] [id number] [place] [address]- 7626 Mar, [facility] [place] [facility] [address] [facility] [id number] [place] [address]- 3955 Mar, [facility] [place] [facility] [address] [facility] [id number] [place] [address]- 9666 Mar, [facility] [place] [facility] [address] [facility] [id number] [place] [address]- 2930 Mar, [facility] [place] [facility] [address] [id number] [place] 8332 Mar, [facility] [place] [facility] [address] [facility] [id number] [place] [address]- 9190 Jan, [facility] [place] [facility] [address] [facility] [id number] [address]- 0026 Jan, [facility] [place] [facility] [address] [id number] [place] [address]- 3086 Dec, [facility] [place] [facility] [address] [id number] [place] 4076 Dec, [facility] [place] [facility] [address] [id number] [place] [address]- 8330 Dec, [facility] [place] [facility] [address] [id number] [place] [address]- 1123 Dec, [facility] [place] [facility] [address] [id number] [place] [address]- 2778 Sep, [facility] [place] [facility] [address] [id number] [place] [address]- 4334 Sep, [facility] [place] [facility] [address] [facility] [id number] [place] [address]- 8219 Apr, [facility] [place] [facility] [address] [facility] [id number] [place] [address] Apr, [facility] [place] [facility] [address] [facility] [id number] [place] [address] Mar, [facility] [place] [facility] [address] [facility] [id number] [place] [address] Mar, [facility] [place] [facility] [address] [facility] [id number] [place] [address] Mar, [facility] [place] [facility] [address] [facility] [id number], [place] [address] Mar, [facility] [place] [facility] [address] [id number] [place] [address] Jan, [facility] [place] [facility] [address] [id number] [place] [address] Jan, [facility] [place] [facility] [address] [facility] [id number], [place] [address] Dec, [facility] [place] [facility] [address] [facility] [id number] [place] [address] Dec, [facility] [address] [facility] [id number], [place] [address] Dec, IMMUNIZATIONS No Known Immunizations SOCIAL HISTORY Never Assessed REASON FOR VISIT OB f/u- 4 wk. KBoleRN, Knot on right breast x 2 weeks. PLAN OF CARE Activity Details Follow Up 4 Weeks Reason: VITAL SIGNS Height 64 in 2016-11-22 Weight 293.6 lbs 2016-11-22 Temperature 97.6 degrees Fahrenheit 2016-11-22 Heart Rate 80 bpm 2016-11-22 Respiratory Rate 20 2016-11-22 BMI 50.396 kg/m2 2016-11-22 Blood pressure systolic 118 mmHg 2016-11-22 Blood pressure diastolic 66 mmHg 2016-11-22 MEDICATIONS Medication Instructions Dosage Frequency Start Date End Date Duration Status Vitamin 27-0.8 MG Active Trileptal 300 MG Orally twice a day 1 tablet 12h Dec, 30 days Not-Taking Tums Not-Taking Adderall 20 mg Orally twice a day 1 tablet 12h Sep, 7 days Not -Taking MetFORMIN HCl ER 500 MG Orally Once a day 1 tablet with evening meal 24h Jan, 30 day(s) Not-Taking Trazodone HCl 100 MG Orally voucher Once a day 1 tablet at bedtime 24h Dec, 30 days Not-Taking RESULTS Name Result Date Reference Range TETRA SCREEN 2016-11-22 Results Report Test Results: *Screen Negative* Gest. Age on Collection Date 15.7 Gestat. Age Based On Ultrasound M[age] Age At [place] 27.0 Race Other Weight 293 Insulin Dep Diabetes No Multiple Gestation No AFP Value 15.0 AFP MoM 0.71 hCG Value 12491 hCG MoM 1.51 uE3 Value 0.56 uE3 MoM 0.88 DAVID Value 108.36 DAVID MoM 0.84 [place] 1 [place] [address] DSR (Second Trimester) 1 [place] 2711 DSR (By Age) 1 IN 924 T18 Risk Not increased T18 (By Age) 1:3600 Interpretation Comments: PDF . UA OB DIP (IN HOUSE) 2016-11-22 Glucose negative Protein trace PDF Report 2016-11-22 PDF Report1 LCLS PROCEDURES Procedure Date Ordered Result Body Site URINE-NO MICRO Nov 22, 2016 [facility], 2016 ROSARIO, ROUTINE* Nov 22, 2016 INSTRUCTIONS MEDICATIONS ADMINISTERED No Known Medications MEDICAL (GENERAL) HISTORY Type Description Date Medical History Hidradenitis Supprativa Medical History Bipolar Disorder Medical History ADHD Surgical History pilonidal cyst removal tailbone Surgical History 2018 Hospitalization History Dehydration & concussion 07/23/2016 Hospitalization History child 2018
--- OUTSIDE RECORDS SUMMARY | 2017-09-24 22:46 | XMS REPORT ---
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 Active 21611484710330352 Problem Anxiety disorder, unspecified F41.9 Active 971319875 Problem Lesion of sciatic nerve, left lower limb G57.02 Active 223040015221802 Problem Abdominal pannus E65 Active 2226084275118 Problem Obesity during in third trimester O99.213 Active 216293978 Problem Post depression F53 Active 39114530 Problem Gestational diabetes mellitus (GDM) in third trimester, gestational diabetes method of control unspecified O24.419 Active 84308172 Problem Lumbago with sciatica, left side M54.42 Active 257236905 Problem Lumbago with sciatica, right side M54.41 Active 274684495 Problem Bipolar disorder, unspecified F31.9 Active 26972431 Problem Hypertriglyceridemia E78.1 Active 445778394 Problem Attention deficit hyperactivity disorder F90.9 Active 250290899 Problem Metabolic syndrome E88.81 Active 800455859 Problem Other chronic pain G89.29 Active 13908824 Problem Obesity affecting in second trimester O99.212 Active 530957510801 Problem Suppurative hidradenitis L73.2 Active 27753111 Problem Gastro-esophageal reflux disease without esophagitis K21.9 Active 855804985 ALLERGIES No Information ENCOUNTERS Encounter Location Date Diagnosis [facility] [address] [facility] [id number] [address] Jul, [place] [id number] [place] [address] 79996- 1786 Jul, Somatic dysfunction of pelvis region M99.05 ; Somatic dysfunction of sacral region M99.04 ; Somatic dysfunction of lumbar region M99.03 ; Lesion of sciatic nerve, left lower limb G57.02 and Lesion of sciatic nerve, 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 [place] [address] [place] [id number] [place] [address] 57913- 2049 June, [place] [id number] [place] [address] 78656- 2410 June, Bipolar disorder, unspecified F31.9 ; Attention deficit hyperactivity disorder F90.9 ; High risk medication use Z79.899 and BMI 50.0- 59.9, adult Z68.43 [place] [address] [place] [id number] [place] [address] 54687- 9623 June, [place] [id number] [place] [address] 70867- 4795 June, Hidradenitis suppurativa L73.2 and BMI 50.0-59.9, adult Z68.43 [place] [address] [place] [address] 79783- 9817 June, Bipolar disorder, unspecified F31.9 and BMI 50.0-59.9, adult Z68.43 [place] [address] [place] [address] 74044- 5810 May, [place] [address] [place] [address] 01507- 2703 May, Lumbago with sciatica, left side M54.42 ; care and examination Z39.2 ; Lumbago with sciatica, right side M54.41 ; Other chronic pain G89.29 ; BMI 50.0-59.9, adult Z68.43 ; Abdominal pannus E65 ; Suppurative hidradenitis L73.2 and Post depression F53 [place] [address] [place] [address] 17326- 8633 Apr, [place] [address] [place] [id number] [place] [address] 73065- 9918 Apr, Abdominal pannus E65 and BMI 45.0-49.9, adult Z68.42 [place] [address] [id number] [place] [address] 95979- 1760 Apr, Screening for iron deficiency anemia Z13.0 [place] [address] [address] [id number] [place] [address] 84535- 4007 15 Apr, 2017 Bipolar disorder, unspecified F31.9 [place] [address] [place] [id number] [place] [address] 49965- 1091 07 Apr, 2017 Obesity during in third trimester O99.213 ; Third trimester Z34.93 ; Gestational diabetes mellitus (GDM) in third trimester controlled on oral hypoglycemic drug O24.415 ; 37 weeks gestation of Z3A.37 and Oligohydramnios in third trimester, single or unspecified fetus O41.03X0 [place] [address] [place] [id number] [place] [address] 02803- 9597 28 Mar, 2017 Third trimester Z34.93 [place] [address] [address] [id number] [place] [address] 61126- 9819 26 Mar, 2017 Gestational diabetes mellitus (GDM) in third trimester controlled on oral hypoglycemic drug O24.415 [place] [address] [place] [address] [id number] [place] [address] 03554- 7048 Mar, [place] [address] [place] [address] 76181- 3744 Mar, Third trimester Z34.93 ; Gestational diabetes mellitus (GDM) in third trimester controlled on oral hypoglycemic drug O24.415 and 35 weeks gestation of Z3A.35 [place] [address] [place] [id number] [place] [address] 71208- 2744 15 Mar, 2017 BMI 50.0-59.9, adult Z68.43 and Bipolar disorder, unspecified F31.9 [place] [address] [place] [id number] [place] [address] 93409- 1043 13 Mar, 2017 Diet controlled gestational diabetes mellitus (GDM), antepartum O24.410 [place] [address] [place] [id number] [place] [address] 34191- 2165 07 Mar, 2017 33 weeks gestation of Z3A.33 ; Gestational diabetes mellitus (GDM) in third trimester controlled on oral hypoglycemic drug O24.415 ; Third trimester Z34.93 and Obesity affecting in third trimester O99.213 [place] [address] [place] [id number] [place] [address] 10014- 8279 Mar, [place] [address] [place] [id number] [place] [address] 11789- 8886 Feb, Third trimester Z34.93 ; Encounter for immunization Z23 ; Gestational diabetes mellitus (GDM) in third trimester controlled on oral hypoglycemic drug O24.415 ; Obesity during in third trimester O99.213 and 31 weeks gestation of Z3A.31 [place] [address] [id number] [place] [address] 54434- 5710 Feb, [place] [address] [place] [id number] [place] [address] 61748- 3077 Feb, Gestational diabetes mellitus (GDM) in third trimester, gestational diabetes method of control unspecified O24.419 [place] [address] [place] [address] 19196- 3137 Feb, [place] [address] [place] [address] [id number] [place] [address] 37397- 3449 Feb, [place] [address] [place] [id number] [place] [address] 98278- 2359 15 Feb, 2017 Bipolar disorder, unspecified F31.9 and BMI 50.0-59.9, adult Z68.43 [place] [address] [place] [id number] [place] [address] 76352- 2889 Feb, 29 weeks gestation of Z3A.29 ; Gestational diabetes mellitus (GDM) in third trimester, gestational diabetes method of control unspecified O24.419 ; Third trimester Z34.93 ; Obesity affecting in third trimester O99.213 and BMI 50.0-59.9, adult Z68.43 [facility] [address] [place] [address] 96672- 3433 15 Jan, 2017 Abnormal glucose tolerance test (GTT) R73.02 [facility] [address] [place] [id number] [place] [address] [phone] 15 Jan, 2017 Dental examination Z01.20 [place] [address] [place] [id number] [place] [address] 71071- 8200 14 Jan, 2017 Bipolar disorder, unspecified F31.9 [place] [address] [place] [id number] [place] [address] 59470- 0445 12 Jan, 2017 25 weeks gestation of Z3A.25 ; Second trimester Z34.92 ; Gastro-esophageal reflux disease without esophagitis K21.9 ; Diseases of the digestive system complicating , second trimester O99.612 ; Abnormal ultrasonic finding on screening of mother O28.3 and BMI 50.0-59.9, adult Z68.43 [place] [address] [place] [id number] [place] [address] 83357- 0979 05 Jan, 2017 [place] [address] [place] [address] 52274- 9885 30 Dec, 2016 [place] [address] [place] [id number] [place] [address] 53920- 4401 14 Dec, 2016 Dental examination Z01.20 [facility] [address] [address] [id number] [place] [address] 37306- 0536 14 Dec, 2016 Second trimester Z34.92 ; 21 weeks gestation of Z3A.21 and Obesity affecting in second trimester O99.212 [facility] [address] [place] [id number] [place] [address] 00371- 3337 13 Dec, 2016 [place] [address] [address] [id number] [place] [address] 90037- 9409 Dec, Lump of right breast N63.10 ; Abscess of left thigh L02.416 and BMI 45.0-49.9, adult Z68.42 [facility] [address] [place] [address] [id number] Dec, Dental examination Z01.20 [facility] [address] [id number] [place] [address] 75480- 9406 08 Dec, 2016 [facility] [address] [place] [id number] [place] [address] 24493- 2828 Dec, Bipolar disorder, unspecified F31.9 [facility] [address] [place] [id number] [place] [address] 28651- 4562 Nov, [facility] [address] [address] [id number] [place] [address] 93489- 2786 Nov, [facility] [address] [place] [address] [id number] [place] [address] 98670- 8295 Nov, 17 weeks gestation of Z3A.17 and Right non- suppurative otitis media H65.91 [facility] [address] [place] [id number] [place] [address] 29976- 0793 Nov, [facility] [address] [place] [address] [id number] [place] [address] 63561- 3402 Nov, [facility] [address] [address] [id number] [place] [address] 73103- 4648 Nov, Bipolar disorder, unspecified F31.9 [facility] [address] [place] [address] [id number] [place] [address] 29613- 5006 Nov, 16 weeks gestation of Z3A.16 ; Second trimester Z34.92 and Obesity affecting in second trimester O99.212 [facility] [address] [place] [address] [id number] 03 Nov, 2016 Encounter for dental examination Z01.20 [facility] [address] [place] [id number] [address]- 8575 13 Oct, 2016 [facility] [address] [place] [id number] [address]- 3183 Oct, 12 weeks gestation of Z3A.12 ; First trimester Z34.90 and Obesity affecting in first trimester O99.211 [facility] [address] [address]- 3392 Sep, [facility] [address] [place] [address] [id number] [place] [address] 21194- 1741 Sep, [facility] [address] [place] [address] [id number] [place] [address] 23327- 7441 Sep, Bipolar disorder, unspecified F31.9 [facility] [address] [place] [id number] [place] [address] 87311- 7900 Sep, [facility] [address] [place] [address] [id number] [place] [address] 68709- 0755 Sep, [facility] [address] [place] [address] [id number] [place] [address] 98371- 8838 Sep, Normal , first Z34.00 [facility] [address] [place] [id number] [place] [address] 41303- 0444 Sep, Normal , first Z34.00 ; 8 weeks gestation of Z3A.08 and Obesity affecting in first trimester O99.211 [facility] [address] [place] [id number] [address]- 9903 Sep, Anxiety disorder, unspecified F41.9 [facility] [address] [address]- 4514 Sep, [facility] [address] [place] [id number] [place] [address] 56369- 8001 Sep, Encounter for test, result unknown Z32.00 [facility] [address] [address]- 3723 Aug, Anxiety disorder, unspecified F41.9 [place] [address] [address]- 8447 30 Jul, 2016 Suppurative hidradenitis L73.2 ; Metabolic syndrome E88.81 ; BMI 40.0-44.9, adult Z68.41 and High risk sexual behavior Z72.51 [place] [address] [place] [id number] [place] [address] 92100- 6164 Jul, Anxiety disorder, unspecified F41.9 [place] [address] [place] [id number] [place] [address] 48191- 5785 June, Anxiety disorder, unspecified F41.9 ; Attention deficit hyperactivity disorder F90.9 and Bipolar disorder, unspecified F31.9 [place] [address] [place] [id number] [place] [address] 82625- 8421 June, Attention deficit hyperactivity disorder F90.9 [place] [address] [place] [id number] [place] [address] 69618- 2053 May, Attention deficit hyperactivity disorder F90.9 [place] [address] [place] [id number] [place] [address] 28007- 6956 Apr, Attention deficit hyperactivity disorder F90.9 [place] [address] [place] [id number] [place] [address] 21016- 5276 14 Mar, 2016 Abscess L02.91 and Screening for STD sexually transmitted disease Z11.3 [place] [address] [place] [id number] [place] [address] 67154- 9852 03 Mar, 2016 Attention deficit hyperactivity disorder F90.9 [place] [address] [place] [id number] [place] [address] 63173- 8435 Feb, Attention deficit hyperactivity disorder F90.9 [place] [address] [place] [id number] [place] [address] 35058- 3071 Feb, Attention deficit disorder of adult F98.8 and DMDD ( disruptive mood dysregulation disorder) F34.81 [place] [address] [place] [id number] [place] [address] 65905- 0341 Jan, Exposure to sexually transmitted disease (STD) Z20.2 and Metabolic syndrome E88.81 [place] [address] [place] [id number] [place] [address] 03930- 8147 Jan, Possible exposure to STD Z20.2 ; BMI 40.0-44.9, adult Z68.41 ; Metabolic syndrome E88.81 ; Elevated fasting glucose R73.01 and Hypertriglyceridemia E78.1 [place] [address] [place] [id number] [place] [address] 24807- 1569 Jan, Possible exposure to STD Z20.2 ; Lumbago with sciatica, left side M54.42 ; Lumbago with sciatica, right side M54.41 ; BMI 40.0-44.9, adult Z68.41 ; Metabolic syndrome E88.81 ; Elevated fasting glucose R73.01 ; Hypertriglyceridemia E78.1 and Suppurative hidradenitis L73.2 [place] [address] 76702- 3409 Dec, Attention deficit hyperactivity disorder F90.9 [place] [address] 20221- 9215 Dec, [place] [address] [place] [id number] [place] [address] 59090- 5032 Nov, [place] [address] [place] [id number] [place] [address] 20564- 9140 Nov, [place] [address] [place] [id number] [place] [address] 18938- 4712 Nov, [place] [address] [place] [id number] [place] [address] 06809- 6186 Nov, [place] [address] [place] [id number] [place] [address] 74056- 6819 30 Oct, 2015 Lumbago with sciatica, left side M54.42 and Other chronic pain G89.29 [place] [address] 82777- 3005 Oct, Lumbago with sciatica, left side M54.42 ; Lumbago with sciatica, right side M54.41 ; Other chronic pain G89.29 and Suppurative hidradenitis L73.2 [place] [address] [address]- 1431 Oct, [place] [address] [place] [id number] [place] [address] 72777- 6366 Sep, [place] [address] [place] [id number] [place] [address] 03643- 9473 Sep, Unprotected sexual intercourse Z72.51 ; Hidradenitis suppurativa L73.2 ; Elevated fasting glucose R73.01 ; BMI 40.0-44.9, adult Z68.41 and Irregular menses N92.6 [place] [id number] [place] [address] 17317- 3258 Aug, [place] [address] [place] [id number] [place] [address] 02965- 2406 Jul, Routine health maintenance Z00.00 ; Abscess L02.91 ; H/O hidradenitis suppurativa Z87.2 ; Irregular menses N92.6 ; BMI 40.0-44.9, adult Z68.41 ; Elevated fasting glucose R73.01 and Hypertriglyceridemia E78.1 [place] [address] [place] [id number] [place] [address] 30537- 9280 Jul, [facility] [address] [place] [address] 69226 -4740 Jul, Hidradenitis suppurativa L73.2 [place] [id number] [place] [address] 40835- 0910 Jul, Bipolar disorder, unspecified F31.9 ; Anxiety disorder, unspecified F41.9 and Attention deficit hyperactivity disorder F90.9 [place] [id number] [place] [address] 22870- 3863 June, [place] [address] [place] [id number] [place] [address] 43931- 5344 June, [place] [address] [place] [id number] [place] [address] 09383- 6667 May, [place] [address] [place] [id number] [place] [address] 87601- 3089 Apr, [place] [address] 66746- 0985 Apr, Well woman exam Z01.419 ; BMI 40.0-44.9, adult Z68.41 ; Tobacco use Z72.0 ; Family history of diabetes mellitus Z83.3 ; Hidradenitis suppurativa L73.2 ; Routine screening for STI (sexually transmitted infection) Z11.3 ; Unprotected sexual intercourse Z72.51 and Family history of breast cancer Z80.[address] 71421- 5067 Apr, Bipolar disorder, unspecified F31.9 ; Anxiety disorder, unspecified F41.9 and Attention deficit hyperactivity disorder F90.9 [place] [id number] [place] [address] 94746- 5668 Mar, [place] [id number] [place] [address] 81731- 1613 Feb, [place] [id number] [place] [address] 56067- 3089 Feb, [place] [id number] [place] [address] 27567- 3236 Jan, Encounter for test, result negative Z32.02 and BMI 40.0-44.9, adult Z68.41 [place] [id number] [place] [address] 14492- 5317 Jan, Bipolar disorder, unspecified F31.9 ; Anxiety disorder, unspecified F41.9 and Attn-defct hyperactivity disorder, predom inattentive type F90.0 [facility] [address] [address]- 7640 Jan, [facility] [address] [place] [id number] [place] [address] 06583- 3963 Dec, [facility] [address] [place] [address] [id number] [place] [address] 85795- 5372 Dec, Bipolar disorder, unspecified F31.9 ; Attention deficit hyperactivity disorder F90.9 and Anxiety disorder, unspecified F41.9 [facility] [address] [place] [address] [id number] [place] [address] 55574- 9129 Nov, Irregular menses N92.6 ; Unprotected sexual intercourse Z72.51 ; Screening for STD sexually transmitted disease Z11.3 ; General counseling and advice for contraceptive management Z30.09 ; Oral contraceptive pill surveillance Z30.41 ; BMI 40.0-44.9, adult Z68.41 and H/O hidradenitis suppurativa Z87.2 [facility] [address] [id number] [place] [address] [id number] Sep, Dental examination V72.2 [facility] [address] [place] [id number] [place] [address] 34096- 0242 Sep, Screen for STD (sexually transmitted disease) V74.5 and General counseling on prescription of oral contraceptives V25.01 [facility] [address] [address]- 0038 14 May, 2014 [facility] [address] [place] [address] 90921- 7736 May, [facility] [address] [place] [address] 80562- 9180 Apr, [facility] [address] [id number] [place] [address] 08340- 5916 Apr, [facility] [address] [address]- 6819 Apr, [facility] [address] [place] [address] [address]- 2552 10 Apr, 2014 [facility] [place] [facility] [address] [id number] [place] [address]- 7626 10 Apr, 2014 [facility] [place] [facility] [address] [id number] [place] [address]- 5226 10 Apr, 2014 [facility] [place] [facility] [address] [id number] [place] [address]- 1687 Apr, 2014 [facility] [place] [facility] [address] [id number] [place] [address]- 8436 Mar, 2014 [facility] [place] [facility] [address] [id number] [place] [address]- 6904 Mar, 2014 [facility] [place] [facility] [address] [facility] [id number] [place] [address]- 9093 Mar, 2014 [facility] [place] [facility] [address] [facility] [id number] [place] [address]- 5133 Mar, 2014 [facility] [place] [facility] [address] [facility] [id number] [place] [address]- 5614 Mar, 2014 [facility] [place] [facility] [address] [facility] [id number] [place] [address]- 7985 Mar, 2014 [facility] [place] [facility] [address] [facility] [id number] [place] 4811 Jan, [facility] [place] [facility] [address] [facility] [id number] [place] [address]- 0087 Jan, [facility] [place] [facility] [address] [id number] [place] [address]- 2547 Dec, [facility] [place] [facility] [address] [id number] [place] [address]- 0736 Dec, [facility] [place] [facility] [address] [facility] [id number] [place] [address]- 2836 Dec, [facility] [place] [facility] [address] [facility] [id number] [place] [address]- 6274 Dec, [facility] [id number] [address]- 8887 Sep, [facility] [address] [address]- 6406 Sep, [facility] [address] 7663 Apr, [facility] [address] [address]- 4391 Apr, [facility] [address] [address]- 7232 Mar, [facility] [address] [place] [address] 191865- 9000 Mar, [facility] [address] [address]- 4578 Mar, [facility] [address] [address]- 1475 Mar, [facility] [address] [address]- 3292 Jan, [facility] [address] [address]- 2074 Jan, [facility] [id number] [address]- 1423 Dec, [facility] [address] [address]- 4353 Dec, [facility] [id number] [address]- 0140 Dec, IMMUNIZATIONS No Known Immunizations SOCIAL HISTORY Never Assessed REASON FOR VISIT GDM ed PLAN OF CARE VITAL SIGNS MEDICATIONS Unknown [...]
--- OUTSIDE RECORDS SUMMARY | 2017-09-24 22:46 | XMS REPORT ---
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 Active [id number] Problem Anxiety disorder, unspecified F41.9 Active 598772531 Problem Lesion of sciatic nerve, left lower limb G57.02 Active 519412594519233 Problem Abdominal pannus E65 Active 8837436018473 Problem Obesity during in third trimester O99.213 Active 508464868 Problem Post depression F53 Active 02665403 Problem Gestational diabetes mellitus (GDM) in third trimester, gestational diabetes method of control unspecified O24.419 Active 52125832 Problem Lumbago with sciatica, left side M54.42 Active 886060942 Problem Lumbago with sciatica, right side M54.41 Active 855456980 Problem Bipolar disorder, unspecified F31.9 Active 34134494 Problem Hypertriglyceridemia E78.1 Active 891184266 Problem Attention deficit hyperactivity disorder F90.9 Active 422639941 Problem Metabolic syndrome E88.81 Active 731770466 Problem Other chronic pain G89.29 Active 39904206 Problem Obesity affecting in second trimester O99.212 Active 360584157568 Problem Suppurative hidradenitis L73.2 Active 64127166 Problem Gastro-esophageal reflux disease without esophagitis K21.9 Active 136562953 ALLERGIES No Information ENCOUNTERS Encounter Location Date Diagnosis [facility] [address] [facility] [id number] [address] Jul, [place] [id number] [place] [address] 57429- 2401 Jul, Somatic dysfunction of pelvis region M99.05 ; Somatic dysfunction of sacral region M99.04 ; Somatic dysfunction of lumbar region M99.03 ; Lesion of sciatic nerve, left lower limb G57.02 and Lesion of sciatic nerve, 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 [place] [address] [place] [id number] [place] [address] 12080- 7911 June, [place] [id number] [place] [address] 01159- 2375 June, Bipolar disorder, unspecified F31.9 ; Attention deficit hyperactivity disorder F90.9 ; High risk medication use Z79.899 and BMI 50.0- 59.9, adult Z68.43 [place] [address] [place] [id number] [place] [address] 32866- 8946 June, [place] [id number] [place] [address] 67160- 0737 June, Hidradenitis suppurativa L73.2 and BMI 50.0-59.9, adult Z68.43 [place] [id number] [place] [address] 09675- 0988 June, Bipolar disorder, unspecified F31.9 and BMI 50.0-59.9, adult Z68.43 [place] [id number] [place] [address] 44181- 4266 May, [place] [id number] [place] [address] 75529- 0377 May, Lumbago with sciatica, left side M54.42 ; care and examination Z39.2 ; Lumbago with sciatica, right side M54.41 ; Other chronic pain G89.29 ; BMI 50.0-59.9, adult Z68.43 ; Abdominal pannus E65 ; Suppurative hidradenitis L73.2 and Post depression F53 [place] [id number] [place] [address] 30995- 0286 Apr, [place] [address] [place] [id number] [place] [address] 16412- 3029 Apr, Abdominal pannus E65 and BMI 45.0-49.9, adult Z68.42 [place] [address] [place] [id number] [place] [address] 98830- 2546 Apr, Screening for iron deficiency anemia Z13.0 [place] [address] [place] [id number] [place] [address] 18379- 3285 15 Apr, 2017 Bipolar disorder, unspecified F31.9 [place] [address] [place] [id number] [place] [address] 39077- 3545 07 Apr, 2017 Obesity during in third trimester O99.213 ; Third trimester Z34.93 ; Gestational diabetes mellitus (GDM) in third trimester controlled on oral hypoglycemic drug O24.415 ; 37 weeks gestation of Z3A.37 and Oligohydramnios in third trimester, single or unspecified fetus O41.03X0 [place] [address] [place] [id number] [place] [address] 74174- 1881 28 Mar, 2017 Third trimester Z34.93 [place] [address] [place] [id number] [place] [address] 32581- 8339 26 Mar, 2017 Gestational diabetes mellitus (GDM) in third trimester controlled on oral hypoglycemic drug O24.415 [place] [address] [place] [id number] [place] [address] 39827- 9651 Mar, [place] [id number] [place] [address] 16272- 1062 Mar, Third trimester Z34.93 ; Gestational diabetes mellitus (GDM) in third trimester controlled on oral hypoglycemic drug O24.415 and 35 weeks gestation of Z3A.35 [place] [address] [place] [id number] [place] [address] 08440- 6376 15 Mar, 2017 BMI 50.0-59.9, adult Z68.43 and Bipolar disorder, unspecified F31.9 [place] [address] [place] [id number] [place] [address] 96156- 6828 13 Mar, 2017 Diet controlled gestational diabetes mellitus (GDM), antepartum O24.410 [place] [address] [place] [id number] [place] [address] 48506- 7193 07 Mar, 2017 33 weeks gestation of Z3A.33 ; Gestational diabetes mellitus (GDM) in third trimester controlled on oral hypoglycemic drug O24.415 ; Third trimester Z34.93 and Obesity affecting in third trimester O99.213 [place] [address] [place] [id number] [place] [address] 75037- 5545 Mar, [place] [address] [place] [id number] [place] [address] 58255- 0170 Feb, Third trimester Z34.93 ; Encounter for immunization Z23 ; Gestational diabetes mellitus (GDM) in third trimester controlled on oral hypoglycemic drug O24.415 ; Obesity during in third trimester O99.213 and 31 weeks gestation of Z3A.31 [place] [address] [place] [id number] [place] [address] 74603- 6001 Feb, [place] [address] [place] [id number] [place] [address] 80211- 2334 Feb, Gestational diabetes mellitus (GDM) in third trimester, gestational diabetes method of control unspecified O24.419 [place] [address] [place] [address] 26641- 5648 Feb, [place] [address] [place] [id number] [place] [address] 93836- 3439 Feb, [place] [address] [place] [id number] [place] [address] 90773- 7222 15 Feb, 2017 Bipolar disorder, unspecified F31.9 and BMI 50.0-59.9, adult Z68.43 [place] [address] [place] [id number] [place] [address] 02698- 0829 Feb, 29 weeks gestation of Z3A.29 ; Gestational diabetes mellitus (GDM) in third trimester, gestational diabetes method of control unspecified O24.419 ; Third trimester Z34.93 ; Obesity affecting in third trimester O99.213 and BMI 50.0-59.9, adult Z68.43 [facility] [address] [place] [address] 35567- 1111 15 Jan, 2017 Abnormal glucose tolerance test (GTT) R73.02 [facility] [address] [place] [id number] [place] [address] [id number] 15 Jan, 2017 Dental examination Z01.20 [place] [address] [place] [id number] [place] [address] 53341- 7604 14 Jan, 2017 Bipolar disorder, unspecified F31.9 [place] [address] [place] [id number] [place] [address] 79146- 4448 12 Jan, 2017 25 weeks gestation of Z3A.25 ; Second trimester Z34.92 ; Gastro-esophageal reflux disease without esophagitis K21.9 ; Diseases of the digestive system complicating , second trimester O99.612 ; Abnormal ultrasonic finding on screening of mother O28.3 and BMI 50.0-59.9, adult Z68.43 [place] [address] [place] [id number] [place] [address] 79776- 8334 05 Jan, 2017 [place] [id number] [place] [address] 01543- 5446 30 Dec, 2016 [place] [address] [place] [id number] [place] [address] 87455- 2805 14 Dec, 2016 Dental examination Z01.20 [facility] [address] [place] [id number] [place] [address] 37598- 0844 14 Dec, 2016 Second trimester Z34.92 ; 21 weeks gestation of Z3A.21 and Obesity affecting in second trimester O99.212 [facility] [address] [place] [id number] [place] [address] 28308- 5294 13 Dec, 2016 [place] [address] [place] [id number] [place] [address] 63958- 0181 Dec, Lump of right breast N63.10 ; Abscess of left thigh L02.416 and BMI 45.0-49.9, adult Z68.42 [facility] [id number] [place] [address] [id number] Dec, Dental examination Z01.20 [facility] [address] [place] [id number] [place] [address] 97641- 5304 08 Dec, 2016 [facility] [address] [place] [id number] [place] [address] 32755- 8856 Dec, Bipolar disorder, unspecified F31.9 [facility] [address] [place] [id number] [place] [address] 61124- 5453 Nov, [facility] [address] [place] [id number] [place] [address] 00269- 9631 Nov, [facility] [address] [place] [id number] [place] [address] 57700- 7793 Nov, 17 weeks gestation of Z3A.17 and Right non- suppurative otitis media H65.91 [facility] [address] [place] [id number] [place] [address] 25627- 4656 Nov, [facility] [address] [place] [id number] [place] [address] 73127- 3649 Nov, [facility] [address] [place] [id number] [place] [address] 45286- 4875 Nov, Bipolar disorder, unspecified F31.9 [facility] [address] [place] [id number] [place] [address] 95659- 2531 Nov, 16 weeks gestation of Z3A.16 ; Second trimester Z34.92 and Obesity affecting in second trimester O99.212 [facility] [id number] [place] [address] [id number] 03 Nov, 2016 Encounter for dental examination Z01.20 [facility] [address] [place] [id number] [address]- 3139 13 Oct, 2016 [facility] [address] [place] [id number] [address]- 1306 Oct, 12 weeks gestation of Z3A.12 ; First trimester Z34.90 and Obesity affecting in first trimester O99.211 [facility] [address] [address]- 5167 Sep, [facility] [address] [place] [id number] [place] [address] 33943- 3448 Sep, [facility] [address] [place] [id number] [place] [address] 54018- 3516 Sep, Bipolar disorder, unspecified F31.9 [facility] [address] [place] [id number] [place] [address] 05962- 0699 Sep, [facility] [address] [place] [id number] [place] [address] 07424- 3300 Sep, [facility] [address] [place] [id number] [place] [address] 11427- 6803 Sep, Normal , first Z34.00 [facility] [address] [place] [id number] [place] [address] 95322- 3441 Sep, Normal , first Z34.00 ; 8 weeks gestation of Z3A.08 and Obesity affecting in first trimester O99.211 [facility] [address] [place] [id number] [address]- 0395 Sep, Anxiety disorder, unspecified F41.9 [facility] [address] [address]- 7247 Sep, [facility] [address] [place] [id number] [place] [address] 03900- 6543 Sep, Encounter for test, result unknown Z32.00 [facility] [address] [address]- 9544 Aug, Anxiety disorder, unspecified F41.9 [place] [address] [address]- 9419 30 Jul, 2016 Suppurative hidradenitis L73.2 ; Metabolic syndrome E88.81 ; BMI 40.0-44.9, adult Z68.41 and High risk sexual behavior Z72.51 [place] [address] [place] [id number] [place] [address] 53020- 4588 Jul, Anxiety disorder, unspecified F41.9 [place] [address] [place] [id number] [place] [address] 03348- 9580 June, Anxiety disorder, unspecified F41.9 ; Attention deficit hyperactivity disorder F90.9 and Bipolar disorder, unspecified F31.9 [place] [address] [place] [id number] [place] [address] 08740- 9182 June, Attention deficit hyperactivity disorder F90.9 [place] [address] [place] [id number] [place] [address] 17477- 0564 May, Attention deficit hyperactivity disorder F90.9 [place] [address] [place] [id number] [place] [address] 85643- 7090 Apr, Attention deficit hyperactivity disorder F90.9 [place] [address] [place] [id number] [place] [address] 71932- 1499 14 Mar, 2016 Abscess L02.91 and Screening for STD sexually transmitted disease Z11.3 [place] [address] [place] [id number] [place] [address] 67578- 3154 03 Mar, 2016 Attention deficit hyperactivity disorder F90.9 [place] [address] [place] [id number] [place] [address] 27693- 5967 Feb, Attention deficit hyperactivity disorder F90.9 [place] [address] [place] [id number] [place] [address] 47749- 7626 Feb, Attention deficit disorder of adult F98.8 and DMDD ( disruptive mood dysregulation disorder) F34.81 [place] [address] [place] [id number] [place] [address] 32251- 8526 Jan, Exposure to sexually transmitted disease (STD) Z20.2 and Metabolic syndrome E88.81 [place] [address] [place] [id number] [place] [address] 07654- 5748 Jan, Possible exposure to STD Z20.2 ; BMI 40.0-44.9, adult Z68.41 ; Metabolic syndrome E88.81 ; Elevated fasting glucose R73.01 and Hypertriglyceridemia E78.1 [place] [address] [place] [id number] [place] [address] 52215- 8641 Jan, Possible exposure to STD Z20.2 ; Lumbago with sciatica, left side M54.42 ; Lumbago with sciatica, right side M54.41 ; BMI 40.0-44.9, adult Z68.41 ; Metabolic syndrome E88.81 ; Elevated fasting glucose R73.01 ; Hypertriglyceridemia E78.1 and Suppurative hidradenitis L73.2 [place] [address] 32185- 8231 Dec, Attention deficit hyperactivity disorder F90.9 [place] [address] 32618- 7018 Dec, [place] [address] [place] [id number] [place] [address] 65082- 5123 Nov, [place] [address] [place] [id number] [place] [address] 98893- 1443 Nov, [place] [address] [place] [id number] [place] [address] 48425- 0296 Nov, [place] [address] [place] [id number] [place] [address] 29892- 1535 Nov, [place] [address] [place] [id number] [place] [address] 64780- 4758 30 Oct, 2015 Lumbago with sciatica, left side M54.42 and Other chronic pain G89.29 [place] [address] 55396- 3812 Oct, Lumbago with sciatica, left side M54.42 ; Lumbago with sciatica, right side M54.41 ; Other chronic pain G89.29 and Suppurative hidradenitis L73.2 [place] [address] [address]- 0174 Oct, [place] [address] [place] [id number] [place] [address] 23291- 1943 Sep, [place] [address] [place] [id number] [place] [address] 60714- 4286 Sep, Unprotected sexual intercourse Z72.51 ; Hidradenitis suppurativa L73.2 ; Elevated fasting glucose R73.01 ; BMI 40.0-44.9, adult Z68.41 and Irregular menses N92.6 [place] [id number] [place] [address] 81632- 7086 Aug, [place] [address] [place] [id number] [place] [address] 17657- 2723 Jul, Routine health maintenance Z00.00 ; Abscess L02.91 ; H/O hidradenitis suppurativa Z87.2 ; Irregular menses N92.6 ; BMI 40.0-44.9, adult Z68.41 ; Elevated fasting glucose R73.01 and Hypertriglyceridemia E78.1 [place] [address] [place] [id number] [place] [address] 23361- 4559 Jul, [facility] [address] [place] [address] 96300 -2641 Jul, Hidradenitis suppurativa L73.2 [place] [id number] [place] [address] 88418- 1513 Jul, Bipolar disorder, unspecified F31.9 ; Anxiety disorder, unspecified F41.9 and Attention deficit hyperactivity disorder F90.9 [place] [id number] [place] [address] 74799- 2492 June, [place] [address] [place] [id number] [place] [address] 08502- 6026 June, [place] [address] [place] [id number] [place] [address] 36338- 3669 May, [place] [address] [place] [id number] [place] [address] 55244- 6216 Apr, [place] [address] 99303- 2732 Apr, Well woman exam Z01.419 ; BMI 40.0-44.9, adult Z68.41 ; Tobacco use Z72.0 ; Family history of diabetes mellitus Z83.3 ; Hidradenitis suppurativa L73.2 ; Routine screening for STI (sexually transmitted infection) Z11.3 ; Unprotected sexual intercourse Z72.51 and Family history of breast cancer Z80.[address] 85011- 7541 Apr, Bipolar disorder, unspecified F31.9 ; Anxiety disorder, unspecified F41.9 and Attention deficit hyperactivity disorder F90.9 [place] [id number] [place] [address] 99913- 3571 Mar, [place] [id number] [place] [address] 74847- 2767 Feb, [place] [id number] [place] [address] 82949- 9919 Feb, [place] [id number] [place] [address] 55227- 9435 Jan, Encounter for test, result negative Z32.02 and BMI 40.0-44.9, adult Z68.41 [place] [id number] [place] [address] 27279- 2687 Jan, Bipolar disorder, unspecified F31.9 ; Anxiety disorder, unspecified F41.9 and Attn-defct hyperactivity disorder, predom inattentive type F90.0 [facility] [address] [address]- 4150 Jan, [facility] [address] [place] [id number] [place] [address] 49205- 3180 Dec, [facility] [address] [place] [id number] [place] [address] 24170- 0310 Dec, Bipolar disorder, unspecified F31.9 ; Attention deficit hyperactivity disorder F90.9 and Anxiety disorder, unspecified F41.9 [facility] [address] [place] [id number] [place] [address] 66779- 8831 Nov, Irregular menses N92.6 ; Unprotected sexual intercourse Z72.51 ; Screening for STD sexually transmitted disease Z11.3 ; General counseling and advice for contraceptive management Z30.09 ; Oral contraceptive pill surveillance Z30.41 ; BMI 40.0-44.9, adult Z68.41 and H/O hidradenitis suppurativa Z87.2 [facility] [address] [id number] [place] [address] [id number] Sep, Dental examination V72.2 [facility] [address] [place] [id number] [place] [address] 66539- 2010 Sep, Screen for STD (sexually transmitted disease) V74.5 and General counseling on prescription of oral contraceptives V25.01 [facility] [address] [address]- 0193 14 May, 2014 [facility] [id number] [place] [address] 62613- 7615 May, [facility] [id number] [place] [address] 60423- 8715 Apr, [facility] [address] [place] [id number] [place] [address] 95853- 7846 Apr, [facility] [address] [address]- 7285 Apr, [facility] [address] [place] [address] [address] [place] [address]- 3217 10 Apr, 2014 [facility] [place] [facility] [address] [id number] [place] [address]- 4216 10 Apr, 2014 [facility] [place] [facility] [address] [id number] [place] [address]- 8386 10 Apr, 2014 [facility] [place] [facility] [address] [id number] [place] [address]- 3190 Apr, 2014 [facility] [place] [facility] [address] [id number] [place] [address]- 7164 Mar, 2014 [facility] [place] [facility] [address] [id number] [place] [address]- 8622 Mar, 2014 [facility] [place] [facility] [address] [facility] [id number] [place] [address]- 0690 Mar, 2014 [facility] [place] [facility] [address] [facility] [id number] [place] [address]- 2464 Mar, 2014 [facility] [place] [facility] [address] [facility] [id number] [place] [address]- 1241 Mar, 2014 [facility] [place] [facility] [address] [facility] [id number] [place] [address]- 4407 Mar, 2014 [facility] [place] [facility] [address] [facility] [id number] [place] 6238 Jan, [facility] [place] [facility] [address] [facility] [id number] [place] [address]- 3305 Jan, [facility] [place] [facility] [address] [id number] [place] [address]- 2545 Dec, [facility] [place] [facility] [address] [id number] [place] [address]- 4496 Dec, [facility] [place] [facility] [address] [facility] [id number] [place] [address]- 4026 Dec, [facility] [place] [facility] [address] [facility] [id number] [place] [address]- 5378 Dec, [facility] [address] 9003 Sep, [facility] [address], [place] [address]- 4680 Sep, [facility] [address] 5399 Apr, [facility] [address] 1773 Apr, [facility] [id number] [place] [id number] Mar, [facility] [id number] [place] [address] [id number]- [address] Mar, [facility] [id number] [address] Mar, [facility] [id number] [address] Mar, [facility] [id number] [place] [id number] Jan, [facility] [id number], [place] [address] Jan, [facility] [id number], [place] [address] Dec, [facility] [id number], [place] [address] Dec, [facility] [id number] [address] Dec, IMMUNIZATIONS No Known Immunizations SOCIAL HISTORY Never Assessed REASON FOR VISIT OB pt- blood sugars PLAN OF CARE VITAL SIGNS MEDICATIONS Medication Instructions Dosage Frequency Start Date End Date Duration Status Metformin HCl 500 MG Orally Twice a day 1 tablet with meals 12h Feb, 30 day(s) Active RESULTS No Results PROCEDURES No Known procedures INSTRUCTIONS MEDICATIONS ADMINISTERED No Known Medications MEDICAL (GENERAL) HISTORY Type Description Date Medical History Hidradenitis Supprativa Medical History Bipolar Disorder Medical History ADHD Surgical History pilonidal cyst removal tailbone Surgical History 2018 Hospitalization History Dehydration & concussion 07/23/2016 Hospitalization History child 2018
--- OUTSIDE RECORDS SUMMARY | 2017-09-24 22:47 | XMS REPORT ---
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 Active [id number] Problem Anxiety disorder, unspecified F41.9 Active 097358059 Problem Lesion of sciatic nerve, left lower limb G57.02 Active 932475162078630 Problem Abdominal pannus E65 Active 0475700232940 Problem Obesity during in third trimester O99.213 Active 003131349 Problem Post depression F53 Active 84419716 Problem Gestational diabetes mellitus (GDM) in third trimester, gestational diabetes method of control unspecified O24.419 Active 12697455 Problem Lumbago with sciatica, left side M54.42 Active 848263156 Problem Lumbago with sciatica, right side M54.41 Active 242705385 Problem Bipolar disorder, unspecified F31.9 Active 94471929 Problem Hypertriglyceridemia E78.1 Active 204050341 Problem Attention deficit hyperactivity disorder F90.9 Active 826369414 Problem Metabolic syndrome E88.81 Active 024322509 Problem Other chronic pain G89.29 Active 99747547 Problem Obesity affecting in second trimester O99.212 Active 750232117596 Problem Suppurative hidradenitis L73.2 Active 44365687 Problem Gastro-esophageal reflux disease without esophagitis K21.9 Active 763372402 ALLERGIES No Information ENCOUNTERS Encounter Location Date Diagnosis [facility] [address] [facility] [id number] [address] Jul, [place] [address] [place] [address] 23133- 9406 Jul, Somatic dysfunction of pelvis region M99.05 ; Somatic dysfunction of sacral region M99.04 ; Somatic dysfunction of lumbar region M99.03 ; Lesion of sciatic nerve, left lower limb G57.02 and Lesion of sciatic nerve, 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 [place] [address] [place] [id number] [place] [address] 59915- 0124 June, [place] [address] [place] [address] 83810- 3781 June, Bipolar disorder, unspecified F31.9 ; Attention deficit hyperactivity disorder F90.9 ; High risk medication use Z79.899 and BMI 50.0- 59.9, adult Z68.43 [place] [address] [place] [address] [id number] [place] [address] 16530- 0586 June, [place] [address] [place] [address] 66228- 2446 June, Hidradenitis suppurativa L73.2 and BMI 50.0-59.9, adult Z68.43 [place] [address] [place] [address] 64244- 4002 June, Bipolar disorder, unspecified F31.9 and BMI 50.0-59.9, adult Z68.43 [place] [address] [place] [address] 33539- 1265 May, [place] [address] [place] [address] 74863- 4429 May, Lumbago with sciatica, left side M54.42 ; care and examination Z39.2 ; Lumbago with sciatica, right side M54.41 ; Other chronic pain G89.29 ; BMI 50.0-59.9, adult Z68.43 ; Abdominal pannus E65 ; Suppurative hidradenitis L73.2 and Post depression F53 [place] [address] [place] [address] 01582- 5959 Apr, [place] [address] [place] [id number] [place] [address] 46244- 5197 Apr, Abdominal pannus E65 and BMI 45.0-49.9, adult Z68.42 [place] [address] [place] [id number] [place] [address] 15133- 3280 Apr, Screening for iron deficiency anemia Z13.0 [place] [address] [place] [id number] [place] [address] 13181- 7706 15 Apr, 2017 Bipolar disorder, unspecified F31.9 [place] [address] [place] [id number] [place] [address] 03338- 0266 07 Apr, 2017 Obesity during in third trimester O99.213 ; Third trimester Z34.93 ; Gestational diabetes mellitus (GDM) in third trimester controlled on oral hypoglycemic drug O24.415 ; 37 weeks gestation of Z3A.37 and Oligohydramnios in third trimester, single or unspecified fetus O41.03X0 [place] [address] [place] [id number] [place] [address] 39781- 9122 28 Mar, 2017 Third trimester Z34.93 [place] [address] [place] [address] [id number] [place] [address] 13096- 6872 26 Mar, 2017 Gestational diabetes mellitus (GDM) in third trimester controlled on oral hypoglycemic drug O24.415 [place] [address] [place] [address] [id number] [place] [address] 70787- 3216 Mar, [place] [address] [place] [address] 88002- 1353 Mar, Third trimester Z34.93 ; Gestational diabetes mellitus (GDM) in third trimester controlled on oral hypoglycemic drug O24.415 and 35 weeks gestation of Z3A.35 [place] [address] [place] [id number] [place] [address] 47740- 7465 15 Mar, 2017 BMI 50.0-59.9, adult Z68.43 and Bipolar disorder, unspecified F31.9 [place] [address] [place] [id number] [place] [address] 11410- 5833 13 Mar, 2017 Diet controlled gestational diabetes mellitus (GDM), antepartum O24.410 [place] [id number] [place] [id number] [place] [address] 60110- 2700 07 Mar, 2017 33 weeks gestation of Z3A.33 ; Gestational diabetes mellitus (GDM) in third trimester controlled on oral hypoglycemic drug O24.415 ; Third trimester Z34.93 and Obesity affecting in third trimester O99.213 [place] [address] [place] [id number] [place] [address] 73877- 8208 Mar, [place] [address] [place] [id number] [place] [address] 78866- 6922 Feb, Third trimester Z34.93 ; Encounter for immunization Z23 ; Gestational diabetes mellitus (GDM) in third trimester controlled on oral hypoglycemic drug O24.415 ; Obesity during in third trimester O99.213 and 31 weeks gestation of Z3A.31 [place] [address] [place] [id number] [place] [address] 23204- 2416 Feb, [place] [address] [place] [id number] [place] [address] 49504- 0310 Feb, Gestational diabetes mellitus (GDM) in third trimester, gestational diabetes method of control unspecified O24.419 [place] [address] [place] [address] 78818- 9637 Feb, [place] [address] [place] [id number] [place] [address] 38190- 3235 Feb, [place] [address] [place] [id number] [place] [address] 21157- 8325 15 Feb, 2017 Bipolar disorder, unspecified F31.9 and BMI 50.0-59.9, adult Z68.43 [place] [address] [place] [id number] [place] [address] 37508- 3585 Feb, 29 weeks gestation of Z3A.29 ; Gestational diabetes mellitus (GDM) in third trimester, gestational diabetes method of control unspecified O24.419 ; Third trimester Z34.93 ; Obesity affecting in third trimester O99.213 and BMI 50.0-59.9, adult Z68.43 [facility] [address] [place] [address] 45111- 6218 15 Jan, 2017 Abnormal glucose tolerance test (GTT) R73.02 [facility] [address] [place] [id number] [place] [address] [id number] 15 Jan, 2017 Dental examination Z01.20 [place] [address] [place] [id number] [place] [address] 28257- 1989 14 Jan, 2017 Bipolar disorder, unspecified F31.9 [place] [address] [place] [id number] [place] [address] 53264- 6597 12 Jan, 2017 25 weeks gestation of Z3A.25 ; Second trimester Z34.92 ; Gastro-esophageal reflux disease without esophagitis K21.9 ; Diseases of the digestive system complicating , second trimester O99.612 ; Abnormal ultrasonic finding on screening of mother O28.3 and BMI 50.0-59.9, adult Z68.43 [place] [address] [place] [id number] [place] [address] 04324- 7393 05 Jan, 2017 [place] [address] [place] [address] 43107- 3980 30 Dec, 2016 [place] [address] [place] [id number] [place] [address] 01855- 1111 14 Dec, 2016 Dental examination Z01.20 [facility] [address] [place] [id number] [place] [address] 60942- 5901 14 Dec, 2016 Second trimester Z34.92 ; 21 weeks gestation of Z3A.21 and Obesity affecting in second trimester O99.212 [facility] [address] [place] [id number] [place] [address] 23660- 9601 13 Dec, 2016 [place] [address] [place] [id number] [place] [address] 61109- 4910 Dec, Lump of right breast N63.10 ; Abscess of left thigh L02.416 and BMI 45.0-49.9, adult Z68.42 [facility] [address] [place] [address] [id number] Dec, Dental examination Z01.20 [facility] [address] [place] [id number] [place] [address] 48186- 5496 08 Dec, 2016 [facility] [address] [place] [id number] [place] [address] 48923- 0630 Dec, Bipolar disorder, unspecified F31.9 [facility] [address] [place] [id number] [place] [address] 88483- 2123 Nov, [facility] [address] [place] [id number] [place] [address] 52020- 9717 Nov, [facility] [address] [place] [id number] [place] [address] 24388- 9004 Nov, 17 weeks gestation of Z3A.17 and Right non- suppurative otitis media H65.91 [facility] [address] [place] [id number] [place] [address] 97559- 5949 Nov, [facility] [address] [place] [id number] [place] [address] 97191- 8462 Nov, [facility] [address] [place] [id number] [place] [address] 01153- 3819 Nov, Bipolar disorder, unspecified F31.9 [facility] [address] [place] [id number] [place] [address] 18892- 1383 Nov, 16 weeks gestation of Z3A.16 ; Second trimester Z34.92 and Obesity affecting in second trimester O99.212 [facility] [address] [place] [address] [id number] 03 Nov, 2016 Encounter for dental examination Z01.20 [facility] [address] [place] [id number] [address]- 2973 13 Oct, 2016 [facility] [address] [place] [id number] [address]- 1752 Oct, 12 weeks gestation of Z3A.12 ; First trimester Z34.90 and Obesity affecting in first trimester O99.211 [facility] [address] [address]- 2167 Sep, [facility] [address] [place] [id number] [place] [address] 63905- 3217 Sep, [facility] [address] [place] [id number] [place] [address] 27081- 2720 Sep, Bipolar disorder, unspecified F31.9 [facility] [address] [place] [id number] [place] [address] 67104- 6197 Sep, [facility] [address] [place] [id number] [place] [address] 02125- 3638 Sep, [facility] [address] [place] [id number] [place] [address] 03788- 7802 Sep, Normal , first Z34.00 [facility] [address] [place] [id number] [place] [address] 66824- 1113 Sep, Normal , first Z34.00 ; 8 weeks gestation of Z3A.08 and Obesity affecting in first trimester O99.211 [facility] [address] [place] [id number] [address]- 1720 Sep, Anxiety disorder, unspecified F41.9 [facility] [address] [address]- 4652 Sep, [facility] [address] [place] [id number] [place] [address] 60985- 7432 Sep, Encounter for test, result unknown Z32.00 [facility] [address] [address]- 2044 Aug, Anxiety disorder, unspecified F41.9 [place] [address] [address]- 4729 30 Jul, 2016 Suppurative hidradenitis L73.2 ; Metabolic syndrome E88.81 ; BMI 40.0-44.9, adult Z68.41 and High risk sexual behavior Z72.51 [place] [address] [place] [id number] [place] [address] 35952- 8592 Jul, Anxiety disorder, unspecified F41.9 [place] [address] [place] [id number] [place] [address] 07012- 3022 June, Anxiety disorder, unspecified F41.9 ; Attention deficit hyperactivity disorder F90.9 and Bipolar disorder, unspecified F31.9 [place] [address] [place] [id number] [place] [address] 80675- 3945 June, Attention deficit hyperactivity disorder F90.9 [place] [address] [place] [id number] [place] [address] 26617- 2218 May, Attention deficit hyperactivity disorder F90.9 [place] [address] [place] [id number] [place] [address] 49271- 0194 Apr, Attention deficit hyperactivity disorder F90.9 [place] [address] [place] [id number] [place] [address] 03501- 0751 14 Mar, 2016 Abscess L02.91 and Screening for STD sexually transmitted disease Z11.3 [place] [address] [place] [id number] [place] [address] 49650- 7847 03 Mar, 2016 Attention deficit hyperactivity disorder F90.9 [place] [address] [place] [id number] [place] [address] 26430- 2646 Feb, Attention deficit hyperactivity disorder F90.9 [place] [address] [place] [id number] [place] [address] 32879- 2098 Feb, Attention deficit disorder of adult F98.8 and DMDD ( disruptive mood dysregulation disorder) F34.81 [place] [address] [place] [id number] [place] [address] 60943- 6588 Jan, Exposure to sexually transmitted disease (STD) Z20.2 and Metabolic syndrome E88.81 [place] [address] [place] [address] [place] [address] 43375- 5517 Jan, Possible exposure to STD Z20.2 ; BMI 40.0-44.9, adult Z68.41 ; Metabolic syndrome E88.81 ; Elevated fasting glucose R73.01 and Hypertriglyceridemia E78.1 [place] [address] [place] [id number] [place] [address] 98067- 4421 Jan, Possible exposure to STD Z20.2 ; Lumbago with sciatica, left side M54.42 ; Lumbago with sciatica, right side M54.41 ; BMI 40.0-44.9, adult Z68.41 ; Metabolic syndrome E88.81 ; Elevated fasting glucose R73.01 ; Hypertriglyceridemia E78.1 and Suppurative hidradenitis L73.2 [place] [address] 03829- 5832 Dec, Attention deficit hyperactivity disorder F90.9 [place] [address] 79408- 2851 Dec, [place] [address] [place] [id number] [place] [address] 28119- 8231 Nov, [place] [address] [place] [id number] [place] [address] 80875- 1601 Nov, [place] [address] [place] [id number] [place] [address] 81787- 5339 Nov, [place] [address] [place] [id number] [place] [address] 50992- 8554 Nov, [place] [address] [place] [id number] [place] [address] 27581- 5104 30 Oct, 2015 Lumbago with sciatica, left side M54.42 and Other chronic pain G89.29 [place] [address] 72825- 9135 Oct, Lumbago with sciatica, left side M54.42 ; Lumbago with sciatica, right side M54.41 ; Other chronic pain G89.29 and Suppurative hidradenitis L73.2 [place] [address] [address]- 3039 Oct, [place] [address] [place] [id number] [place] [address] 30546- 7225 Sep, [place] [address] [place] [id number] [place] [address] 97956- 5501 Sep, Unprotected sexual intercourse Z72.51 ; Hidradenitis suppurativa L73.2 ; Elevated fasting glucose R73.01 ; BMI 40.0-44.9, adult Z68.41 and Irregular menses N92.6 [place] [address] [place] [address] 26649- 6667 Aug, [place] [address] [place] [id number] [place] [address] 84700- 3144 Jul, Routine health maintenance Z00.00 ; Abscess L02.91 ; H/O hidradenitis suppurativa Z87.2 ; Irregular menses N92.6 ; BMI 40.0-44.9, adult Z68.41 ; Elevated fasting glucose R73.01 and Hypertriglyceridemia E78.1 [place] [address] [place] [id number] [place] [address] 19377- 6767 Jul, [facility] [address] [place] [address] 49049 -7343 Jul, Hidradenitis suppurativa L73.2 [place] [id number] [place] [address] 32781- 8533 Jul, Bipolar disorder, unspecified F31.9 ; Anxiety disorder, unspecified F41.9 and Attention deficit hyperactivity disorder F90.9 [place] [id number] [place] [address] 03275- 7222 June, [place] [address] [place] [id number] [place] [address] 34905- 2425 June, [place] [address] [place] [id number] [place] [address] 45326- 6481 May, [place] [address] [place] [id number] [place] [address] 59622- 1117 Apr, [place] [address] 21463- 4577 Apr, Well woman exam Z01.419 ; BMI 40.0-44.9, adult Z68.41 ; Tobacco use Z72.0 ; Family history of diabetes mellitus Z83.3 ; Hidradenitis suppurativa L73.2 ; Routine screening for STI (sexually transmitted infection) Z11.3 ; Unprotected sexual intercourse Z72.51 and Family history of breast cancer Z80.[address] 57689- 5557 Apr, Bipolar disorder, unspecified F31.9 ; Anxiety disorder, unspecified F41.9 and Attention deficit hyperactivity disorder F90.9 [place] [id number] [place] [address] 52741- 1489 Mar, [place] [id number] [place] [address] 51701- 2678 Feb, [place] [id number] [place] [address] 37113- 0840 Feb, [place] [id number] [place] [address] 66641- 9347 Jan, Encounter for test, result negative Z32.02 and BMI 40.0-44.9, adult Z68.41 [place] [id number] [place] [address] 05290- 4324 Jan, Bipolar disorder, unspecified F31.9 ; Anxiety disorder, unspecified F41.9 and Attn-defct hyperactivity disorder, predom inattentive type F90.0 [facility] [address] [address]- 8127 Jan, [facility] [address] [place] [id number] [place] [address] 08516- 3844 Dec, [facility] [id number] [place] [address] 98564- 6253 Dec, Bipolar disorder, unspecified F31.9 ; Attention deficit hyperactivity disorder F90.9 and Anxiety disorder, unspecified F41.9 [facility] [id number] [place] [address] 73022- 4959 Nov, Irregular menses N92.6 ; Unprotected sexual intercourse Z72.51 ; Screening for STD sexually transmitted disease Z11.3 ; General counseling and advice for contraceptive management Z30.09 ; Oral contraceptive pill surveillance Z30.41 ; BMI 40.0-44.9, adult Z68.41 and H/O hidradenitis suppurativa Z87.2 [facility] [id number] [place] [address] [id number] Sep, Dental examination V72.2 [facility] [id number] [place] [address] 49558- 3750 Sep, Screen for STD (sexually transmitted disease) V74.5 and General counseling on prescription of oral contraceptives V25.01 [facility] [address] [address]- 2063 14 May, 2014 [facility] [address] [place] [address] 34788- 0835 May, [facility] [address] [place] [address] 80426- 4323 Apr, [facility] [id number] [place] [address] 63612- 8135 Apr, [facility] [address] [place] [address]- 7657 Apr, [facility] [address] [place] [address]- 6512 10 Apr, 2014 [facility] [place] [facility] [address] [id number] [place] [address]- 0686 10 Apr, 2014 [facility] [place] [facility] [address] [id number] [place] [address]- 6006 10 Apr, 2014 [facility] [place] [facility] [address] [id number] [place] [address]- 6617 Apr, 2014 [facility] [place] [facility] [address] [id number] [place] [address]- 5462 Mar, 2014 [facility] [place] [facility] [address] [id number] [place] [address]- 5819 Mar, 2014 [facility] [place] [facility] [address] [facility] [id number] [place] [address]- 1155 Mar, 2014 [facility] [place] [facility] [address] [facility] [id number] [place] [address]- 7993 Mar, 2014 [facility] [place] [facility] [address] [facility] [id number] [place] [address]- 1560 Mar, 2014 [facility] [place] [facility] [address] [facility] [id number] [place] [address]- 9217 Mar, 2014 [facility] [place] [facility] [address] [facility] [id number] [place] 2975 Jan, [facility] [place] [facility] [address] [facility] [id number] [place] [address]- 1053 Jan, [facility] [place] [facility] [address] [id number] [place] [address]- 2545 Dec, [facility] [place] [facility] [address] [id number] [place] [address]- 3936 Dec, [facility] [place] [facility] [address] [facility] [id number] [place] [address]- 1166 Dec, [facility] [place] [facility] [address] [facility] [id number] [place] [address]- 9651 Dec, [facility] [id number] [address]- 8605 Sep, [facility] [address] [place] [address]- 9352 Sep, [facility] [address] [place] [address]- 1075 Apr, [facility] [address], [place] [address]- 3357 Apr, [facility] [address], [place] [address]- 3866 Mar, [facility] [address] 4905 Mar, [facility] [id number], [place] [address] Mar, [facility] [id number] [place] [address] Mar, [facility] [id number], [place] [address] Jan, [facility] [id number], [place] [address] Jan, [facility] [id number] [address] Dec, [facility] [id number], [place] [address] Dec, [facility] [id number] [address] Dec, IMMUNIZATIONS No Known Immunizations SOCIAL HISTORY [...]
--- OUTSIDE RECORDS SUMMARY | 2017-09-24 22:47 | XMS REPORT ---
Author Author EVERARDO HUNT Organization [facility] Address [address] [place] [address] Care Team Providers Care Elementary Supervisor Name Role Phone EVERARDO HUNT Unavailable PROBLEMS Type Condition ICD9-CM Code ATO94-DQ Code Onset Dates Condition Status SNOMED Code Problem BMI 50.0-59.9, adult Z68.43 Active 254341318 Problem Gestational diabetes mellitus (GDM) in third trimester controlled on oral hypoglycemic drug O24.415 Active 20748751 Problem Obesity affecting in third trimester O99.213 Active 405841815555 Problem Lesion of sciatic nerve, 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 Active [id number] Problem Anxiety disorder, unspecified F41.9 Active 483818888 Problem Lesion of sciatic nerve, left lower limb G57.02 Active 086580287486695 Problem Abdominal pannus E65 Active 1951607302666 Problem Obesity during in third trimester O99.213 Active 997697134 Problem Post depression F53 Active 20596556 Problem Gestational diabetes mellitus (GDM) in third trimester, gestational diabetes method of control unspecified O24.419 Active 45702092 Problem Lumbago with sciatica, left side M54.42 Active 890561137 Problem Lumbago with sciatica, right side M54.41 Active 039749489 Problem Bipolar disorder, unspecified F31.9 Active 39469466 Problem Hypertriglyceridemia E78.1 Active 207107736 Problem Attention deficit hyperactivity disorder F90.9 Active 324042148 Problem Metabolic syndrome E88.81 Active 352078074 Problem Other chronic pain G89.29 Active 04345107 Problem Obesity affecting in second trimester O99.212 Active 351499247127 Problem Suppurative hidradenitis L73.2 Active 13723161 Problem Gastro-esophageal reflux disease without esophagitis K21.9 Active 082317332 ALLERGIES No Information ENCOUNTERS Encounter Location Date Diagnosis [facility] [address] [facility] [id number] [address] Oct, [place] [address] [place] [address] 36606- 5259 Jul, Bipolar disorder, unspecified F31.9 [place] [address] [place] [address] 67359- 5928 Jul, Bipolar disorder, unspecified F31.9 ; Attention deficit hyperactivity disorder F90.9 and BMI 50.0-59.9, adult Z68.43 [place] [address] [address] 14 Jul, 2017 Somatic dysfunction of pelvis region M99.05 ; Somatic dysfunction of sacral region M99.04 ; Somatic dysfunction of lumbar region M99.03 ; Lesion of sciatic nerve, left lower limb G57.02 ; Lesion of sciatic nerve, 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 and BMI 50.0-59.9, adult Z68.43 [place] [address] [place] [id number] [place] [address] 62591- 4439 June, [place] [address] [place] [id number] [place] [address] 68226- 7785 June, Bipolar disorder, unspecified F31.9 ; Attention deficit hyperactivity disorder F90.9 ; High risk medication use Z79.899 and BMI 50.0- 59.9, adult Z68.43 [place] [address] [address] June, [place] [address] [place] [id number] [place] [address] 60726- 6191 June, Hidradenitis suppurativa L73.2 and BMI 50.0-59.9, adult Z68.43 [place] [address] [place] [address] 84969- 3774 June, Bipolar disorder, unspecified F31.9 and BMI 50.0-59.9, adult Z68.43 [place] [address] [place] [address] 64328- 2709 May, [place] [address] [place] [id number] [place] [address] 94240- 1506 May, Lumbago with sciatica, left side M54.42 ; care and examination Z39.2 ; Lumbago with sciatica, right side M54.41 ; Other chronic pain G89.29 ; BMI 50.0-59.9, adult Z68.43 ; Abdominal pannus E65 ; Suppurative hidradenitis L73.2 and Post depression F53 [place] [address] [place] [id number] [place] [address] 89247- 3842 Apr, [place] [address] 87073- 4874 Apr, Abdominal pannus E65 and BMI 45.0-49.9, adult Z68.42 [place] [address] 01242- 1189 Apr, Screening for iron deficiency anemia Z13.0 [place] [address] [place] [id number] [place] [address] 68042- 9681 15 Apr, 2017 Bipolar disorder, unspecified F31.9 [place] [address] [place] [id number] [place] [address] 90124- 7867 07 Apr, 2017 Obesity during in third trimester O99.213 ; Third trimester Z34.93 ; Gestational diabetes mellitus (GDM) in third trimester controlled on oral hypoglycemic drug O24.415 ; 37 weeks gestation of Z3A.37 and Oligohydramnios in third trimester, single or unspecified fetus O41.03X0 [place] [address] [place] [id number] [place] [address] 43635- 8347 Mar, Third trimester Z34.93 [place] [address] [place] [id number] [place] [address] 17661- 4894 26 Mar, 2017 Gestational diabetes mellitus (GDM) in third trimester controlled on oral hypoglycemic drug O24.415 [place] [address] 71962- 1105 Mar, [place] [address] [place] [address] 84816- 9408 Mar, Third trimester Z34.93 ; Gestational diabetes mellitus (GDM) in third trimester controlled on oral hypoglycemic drug O24.415 and 35 weeks gestation of Z3A.35 [place] [address] [place] [id number] [place] [address] 54065- 8309 15 Mar, 2017 BMI 50.0-59.9, adult Z68.43 and Bipolar disorder, unspecified F31.9 [place] [address] [place] [id number] [place] [address] 92976- 5289 13 Mar, 2017 Diet controlled gestational diabetes mellitus (GDM), antepartum O24.410 [place] [address] [place] [id number] [place] [address] 78447- 6559 07 Mar, 2017 33 weeks gestation of Z3A.33 ; Gestational diabetes mellitus (GDM) in third trimester controlled on oral hypoglycemic drug O24.415 ; Third trimester Z34.93 and Obesity affecting in third trimester O99.213 [place] [address] [place] [id number] [place] [address] 04995- 9457 Mar, [place] [address] [place] [address] 85539- 1912 Feb, Third trimester Z34.93 ; Encounter for immunization Z23 ; Gestational diabetes mellitus (GDM) in third trimester controlled on oral hypoglycemic drug O24.415 ; Obesity during in third trimester O99.213 and 31 weeks gestation of Z3A.31 [place] [address] [place] [address] 08444- 6940 Feb, [place] [address] [place] [id number] [place] [address] 86959- 2146 Feb, Gestational diabetes mellitus (GDM) in third trimester, gestational diabetes method of control unspecified O24.419 [place] [address] [place] [id number] [place] [address] 04316- 0203 Feb, [place] [address] [place] [id number] [place] [address] 38421- 2151 Feb, [place] [address] 20897- 8214 Feb, Bipolar disorder, unspecified F31.9 and BMI 50.0-59.9, adult Z68.43 [place] [address] 01225- 1896 10 Feb, 2017 29 weeks gestation of Z3A.29 ; Gestational diabetes mellitus (GDM) in third trimester, gestational diabetes method of control unspecified O24.419 ; Third trimester Z34.93 ; Obesity affecting in third trimester O99.213 and BMI 50.0-59.9, adult Z68.[address] [address]- 8185 15 Jan, 2017 Abnormal glucose tolerance test (GTT) R73.02 [facility] [address] [id number] 15 Jan, 2017 Dental examination Z01.[address] 25159- 1159 14 Jan, 2017 Bipolar disorder, unspecified F31.9 [place] [id number] [place] [address] 05193- 3308 12 Jan, 2017 25 weeks gestation of Z3A.25 ; Second trimester Z34.92 ; Gastro-esophageal reflux disease without esophagitis K21.9 ; Diseases of the digestive system complicating , second trimester O99.612 ; Abnormal ultrasonic finding on screening of mother O28.3 and BMI 50.0-59.9, adult Z68.43 [place] [address] 64225- 9386 05 Jan, 2017 [place] [address] 84988- 5456 Dec, [address] 30530- 8960 Dec, Dental examination Z01.20 [facility] [address] [place] [id number] [place] [address] 01353- 5762 14 Dec, 2016 Second trimester Z34.92 ; 21 weeks gestation of Z3A.21 and Obesity affecting in second trimester O99.212 [facility] [address] [place] [id number] [place] [address] 44564- 5958 13 Dec, 2016 [facility] [address] 87543- 9177 Dec, Lump of right breast N63.10 ; Abscess of left thigh L02.416 and BMI 45.0-49.9, adult Z68.42 [facility] [address] [place] [id number] [place] [address] [id number] 10 Dec, 2016 Dental examination Z01.20 [facility] [address] [place] [id number] [place] [address] 62985- 8482 08 Dec, 2016 [facility] [address] [place] [id number] [place] [address] 94987- 9431 Dec, Bipolar disorder, unspecified F31.9 [facility] [address] [place] [id number] [place] [address] 24065- 4940 24 Nov, 2016 [facility] [address] [place] [id number] [place] [address] 44814- 9950 Nov, [facility] [address] [place] [id number] [place] [address] 09042- 1950 Nov, 17 weeks gestation of Z3A.17 and Right non- suppurative otitis media H65.91 [facility] [address] [place] [id number] [place] [address] 16333- 0418 Nov, [facility] [address] [place] [id number] [place] [address] 82273- 2691 Nov, [facility] [address] [place] [id number] [place] [address] 83782- 5621 Nov, Bipolar disorder, unspecified F31.9 [facility] [address] [place] [id number] [address]- 6596 10 Nov, 2016 16 weeks gestation of Z3A.16 ; Second trimester Z34.92 and Obesity affecting in second trimester O99.212 [facility] [address] [place] [id number] [id number] 03 Nov, 2016 Encounter for dental examination Z01.20 [facility] [address], [place] [address] 13 Oct, 2016 [facility] [address] [address]- 3885 12 Oct, 2016 12 weeks gestation of Z3A.12 ; First trimester Z34.90 and Obesity affecting in first trimester O99.211 [facility] [address] [address]- 5852 Sep, [facility] [address] [address]- 0361 Sep, [facility] [address] [place] [id number] [address]- 7077 Sep, Bipolar disorder, unspecified F31.9 [facility] [address], [place] [address]- 3731 Sep, [facility] [address], [place] [address]- 8531 Sep, [facility] [address], [place] [address]- 4729 Sep, Normal , first Z34.00 [facility] [address] [place] [id number] [place] [address] 89590- 9093 Sep, Normal , first Z34.00 ; 8 weeks gestation of Z3A.08 and Obesity affecting in first trimester O99.211 [facility] [address], [place] [address]- 8572 Sep, Anxiety disorder, unspecified F41.9 [place] [address] [place] [id number] [place] [address] 05567- 8590 Sep, [place] [address] [place] [id number] [place] [address] 82333- 7493 Sep, Encounter for test, result unknown Z32.00 [place] [address] 98375- 3980 Aug, Anxiety disorder, unspecified F41.9 [place] [address] [place] [id number] [place] [address] 28036- 5850 Jul, Suppurative hidradenitis L73.2 ; Metabolic syndrome E88.81 ; BMI 40.0-44.9, adult Z68.41 and High risk sexual behavior Z72.51 [place] [address] [place] [id number] [place] [address] 65360- 4801 Jul, Anxiety disorder, unspecified F41.9 [place] [address] [place] [id number] [place] [address] 54334- 6750 June, Anxiety disorder, unspecified F41.9 ; Attention deficit hyperactivity disorder F90.9 and Bipolar disorder, unspecified F31.9 [place] [address] [place] [id number] [place] [address] 60964- 1361 June, Attention deficit hyperactivity disorder F90.9 [place] [address] [place] [id number] [place] [address] 62730- 6058 May, Attention deficit hyperactivity disorder F90.9 [place] [address] [place] [id number] [place] [address] 03459- 6027 Apr, Attention deficit hyperactivity disorder F90.9 [place] [address] [place] [id number] [place] [address] 89071- 2574 14 Mar, 2016 Abscess L02.91 and Screening for STD sexually transmitted disease Z11.3 [place] [address] [place] [id number] [place] [address] 78284- 0399 Mar, Attention deficit hyperactivity disorder F90.9 [facility] [place] [address] [place] [address] 37737- 1002 Feb, Attention deficit hyperactivity disorder F90.9 [facility] [address] [place] [id number] [place] [address] 11325- 0854 Feb, Attention deficit disorder of adult F98.8 and DMDD ( disruptive mood dysregulation disorder) F34.81 [place] [address] [place] [id number] [place] [address] 52114- 3471 Jan, Exposure to sexually transmitted disease (STD) Z20.2 and Metabolic syndrome E88.81 [place] [id number] [place] [address] 59781- 4751 Jan, Possible exposure to STD Z20.2 ; BMI 40.0-44.9, adult Z68.41 ; Metabolic syndrome E88.81 ; Elevated fasting glucose R73.01 and Hypertriglyceridemia E78.1 [place] [address] [place] [address] 25294- 2812 Jan, Possible exposure to STD Z20.2 ; Lumbago with sciatica, left side M54.42 ; Lumbago with sciatica, right side M54.41 ; BMI 40.0-44.9, adult Z68.41 ; Metabolic syndrome E88.81 ; Elevated fasting glucose R73.01 ; Hypertriglyceridemia E78.1 and Suppurative hidradenitis L73.2 [place] [address] [place] [address] 38816- 6365 Dec, Attention deficit hyperactivity disorder F90.9 [place] [address] [place] [address] 20974- 8834 Dec, [place] [address] [place] [id number] [place] [address] 43766- 9652 Nov, [place] [address] [place] [id number] [place] [address] 43801- 1333 Nov, [place] [address] [place] [address]- 2657 Nov, [place] [address] [place] [id number] [place] [address] 30369- 1834 Nov, [place] [address] [place] [id number] [place] [address] 92470- 4181 Oct, Lumbago with sciatica, left side M54.42 and Other chronic pain G89.29 [place] [address] [place] [id number] [place] [address] 67921- 1279 22 Oct, 2015 Lumbago with sciatica, left side M54.42 ; Lumbago with sciatica, right side M54.41 ; Other chronic pain G89.29 and Suppurative hidradenitis L73.2 [place] [address] [place] [id number] [place] [address] 42970- 6060 Oct, [place] [address] [place] [id number] [place] [address] 34952- 7889 Sep, [place] [address] [place] [id number] [place] [address] 85070- 0045 Sep, Unprotected sexual intercourse Z72.51 ; Hidradenitis suppurativa L73.2 ; Elevated fasting glucose R73.01 ; BMI 40.0-44.9, adult Z68.41 and Irregular menses N92.6 [place] [address] [place] [address] 32816- 2062 Aug, [place] [address] [place] [id number] [place] [address] 75658- 2074 24 Jul, 2015 Routine health maintenance Z00.00 ; Abscess L02.91 ; H/O hidradenitis suppurativa Z87.2 ; Irregular menses N92.6 ; BMI 40.0-44.9, adult Z68.41 ; Elevated fasting glucose R73.01 and Hypertriglyceridemia E78.1 [place] [address] [place] [address] 41594- 5949 Jul, [facility] [address], [place] [address] -1394 08 Jul, 2015 Hidradenitis suppurativa L73.2 [facility] [address], [place] [address]- 2536 Jul, Bipolar disorder, unspecified F31.9 ; Anxiety disorder, unspecified F41.9 and Attention deficit hyperactivity disorder F90.9 [place] [address] [address]- 0234 June, [place] [address] [place] [id number] [place] [address] 90716- 5563 June, [place] [address] [place] [id number] [place] [address] 88869- 4510 May, [place] [address] [address]- 8067 Apr, [place] [address] [place] [address] 51349- 8963 Apr, Well woman exam Z01.419 ; BMI 40.0-44.9, adult Z68.41 ; Tobacco use Z72.0 ; Family history of diabetes mellitus Z83.3 ; Hidradenitis suppurativa L73.2 ; Routine screening for STI (sexually transmitted infection) Z11.3 ; Unprotected sexual intercourse Z72.51 and Family history of breast cancer Z80.3 [place] [address] [address]- 2513 Apr, Bipolar disorder, unspecified F31.9 ; Anxiety disorder, unspecified F41.9 and Attention deficit hyperactivity disorder F90.9 [place] [address], [place] [address]- 8954 Mar, [facility] [address] [address]- 7814 Feb, [place] [address] [place] [id number] [address]- 1992 Feb, [place] [address] [place] [address] 44715- 4670 Jan, Encounter for test, result negative Z32.02 and BMI 40.0-44.9, adult Z68.41 [place] [address] [place] [id number] [place] [address] 89428- 7304 Jan, Bipolar disorder, unspecified F31.9 ; Anxiety disorder, unspecified F41.9 and Attn-defct hyperactivity disorder, predom inattentive type F90.0 [place] [address] [place] [id number] [place] [address] 24064- 6418 Jan, [place] [address] 27792- 1448 Dec, [place] [address] [place] [id number] [place] [address] 49536- 7578 Dec, Bipolar disorder, unspecified F31.9 ; Attention deficit hyperactivity disorder F90.9 and Anxiety disorder, unspecified F41.9 [place] [address] [place] [id number] [place] [address] 55289- 0762 Nov, Irregular menses N92.6 ; Unprotected sexual intercourse Z72.51 ; Screening for STD sexually transmitted disease Z11.3 ; General counseling and advice for contraceptive management Z30.09 ; Oral contraceptive pill surveillance Z30.41 ; BMI 40.0-44.9, adult Z68.41 and H/O hidradenitis suppurativa Z87.2 [facility] [address] [place] [address] [id number] Sep, Dental examination V72.2 [place] [address] [place] [address] [id number] [place] [address] 42159- 0950 Sep, Screen for STD (sexually transmitted disease) V74.5 and General counseling on prescription of oral contraceptives V25.01 [place] [address] [address] [id number] [place] [address] 53052- 5693 May, [place] [address] [place] [address] [id number] [place] [address] 99021- 5965 May, [facility] [place] [facility] [address] [id number] [place] [address]- 3666 Apr, [facility] [place] [facility] [address] [facility] [id number] [place] [address]- 2495 Apr, [facility] [place] [facility] [address] [facility] [id number] [place] [address]- 5866 Apr, [facility] [place] [facility] [address] [facility] [id number] [place] [address]- 6746 Apr, [facility] [place] [facility] [address] [facility] [id number] [place] [address]- 3390 Apr, [facility] [place] [facility] [address] [facility] [id number] [place] [address]- 3799 Apr, [facility] [place] [facility] [id number] [address]- 0792 Apr, [facility] [place] [facility] [address] [facility] [id number] [place] [address]- 7527 Mar, [facility] [place] [facility] [id number] [address]- 0611 Mar, 2014 [facility] [place] [facility] [address] [facility] [id number] [place] [address]- 3496 Mar, 2014 [facility] [place] [facility] [id number] [address]- 2462 Mar, 2014 [facility] [place] [facility] [address] [facility] [id number] [address]- 2048 Mar, 2014 [facility] [place] [facility] [address] [facility] [id number] [place] [id number] [address] Mar, 2014 [facility] [place] [facility] [address] [facility] [id number] [place] [address] Jan, [facility] [place] [facility] [address] [facility] [id number], [place] [address] Jan, [facility] [place] [facility] [address] [id number] [place] [address] Dec, [facility] [place] [facility] [address] [id number] [place] [address] Dec, [facility] [place] [facility] [address] [id number] [place] [address] Dec, [facility] [place] [facility] [address] [id number] [place] [address] Dec, [facility] [place] [facility] [address] [id number] [place] [address] Sep, [facility] [place] [facility] [address] [id number] [place] [address] Sep, [facility] [place] [facility] [address] [id number] [place] [address] Apr, [facility] [place] [facility] [address] [id number] [place] [address] Apr, [facility] [place] [facility] [address] [id number] [place] [address] Mar, [facility] [place] [facility] [address] [id number] [place] [address] Mar, [facility] [place] [facility] [address] [id number] [place] [address] Mar, [facility] [place] [facility] [address] [id number], [place] [address] Mar, [facility] [place] [facility] [address] [id number] [place] [address] Jan, [facility] [place] [facility] [address] [id number] [place] [address] Jan, [facility] [place] [facility] [address] [id number] [place] [address] Dec, [facility] [place] [facility] [address] [id number], [place] [address] Dec, [facility] [place] [address] [facility] [place] [id number] [place] [address] Dec, IMMUNIZATIONS No Known Immunizations SOCIAL HISTORY Never Assessed REASON FOR VISIT test strips PLAN OF CARE VITAL SIGNS MEDICATIONS Medication Instructions Dosage Frequency Start Date End Date Duration Status Blood Glucose Test Strip test strips ONE TOUCH 4 times a day DX: O24.419 test blood sugar Feb, Active RESULTS No Results PROCEDURES No Known procedures INSTRUCTIONS MEDICATIONS ADMINISTERED No Known Medications MEDICAL (GENERAL) HISTORY Type Description Date Medical History Hidradenitis Supprativa Medical History Bipolar Disorder Medical History ADHD Surgical History pilonidal cyst removal tailbone Surgical History 2018 Hospitalization History Dehydration & concussion 07/23/2016 Hospitalization History child 2018
--- OUTSIDE RECORDS SUMMARY | 2017-09-24 22:47 | XMS REPORT ---
Author Author EVERARDO HUNT [facility] Address [address] [place] [address] Care Team Providers Care Tank Hoop Bender Name Role Phone EVERARDO HUNT Unavailable PROBLEMS Type Condition ICD9-CM Code YOG45-PD Code Onset Dates Condition Status SNOMED Code Problem Obesity affecting in second trimester O99.212 Active 330653189807 Problem BMI 50.0-59.9, adult Z68.43 Active 694518106 Problem Gastro-esophageal reflux disease without esophagitis K21.9 Active 401566714 Problem Post depression F53 Active 61308099 Problem Gestational diabetes mellitus (GDM) in third trimester, gestational diabetes method of control unspecified O24.419 Active 32116820 Problem Obesity during in third trimester O99.213 Active 824698809 Problem Obesity affecting in third trimester O99.213 Active 856659727274 Problem Abdominal pannus E65 Active 8492355947619 Problem Gestational diabetes mellitus (GDM) in third trimester controlled on oral hypoglycemic drug O24.415 Active 47851116 Problem Bipolar disorder, unspecified F31.9 Active 47349836 Problem Hypertriglyceridemia E78.1 Active 888138613 Problem Anxiety disorder, unspecified F41.9 Active 404198162 Problem Lumbago with sciatica, left side M54.42 Active 700088407 Problem Lumbago with sciatica, right side M54.41 Active 620839193 Problem Other chronic pain G89.29 Active 36084142 Problem Attention deficit hyperactivity disorder F90.9 Active 728879851 Problem Suppurative hidradenitis L73.2 Active 14187740 Problem Metabolic syndrome E88.81 Active 337125527 ALLERGIES No Information ENCOUNTERS Encounter Location Date Diagnosis [facility] [address] [facility] [id number] [address] Jul, [facility] [address] [place] [id number] [address] June, [place] [address] [place] [address] 20145- 0799 June, Bipolar disorder, unspecified F31.9 ; Attention deficit hyperactivity disorder F90.9 ; High risk medication use Z79.899 and BMI 50.0- 59.9, adult Z68.43 [place] [address] [place] [id number] [place] [address] 12519- 8108 June, [place] [address] [id number] [place] [address] 63432- 2089 June, Hidradenitis suppurativa L73.2 and BMI 50.0-59.9, adult Z68.43 [place] [address] [address] [id number] [place] [address] 72451- 2250 June, Bipolar disorder, unspecified F31.9 and BMI 50.0-59.9, adult Z68.43 [place] [address] [address] [id number] [place] [address] 64687- 6925 May, [place] [address] [address] [id number] [place] [address] 10654- 5130 May, Lumbago with sciatica, left side M54.42 ; care and examination Z39.2 ; Lumbago with sciatica, right side M54.41 ; Other chronic pain G89.29 ; BMI 50.0-59.9, adult Z68.43 ; Abdominal pannus E65 ; Suppurative hidradenitis L73.2 and Post depression F53 [place] [address] [place] [address] 68292- 1823 Apr, [place] [address] [address] [id number] [place] [address] 38776- 7919 Apr, Abdominal pannus E65 and BMI 45.0-49.9, adult Z68.42 [place] [address] [address] [id number] [place] [address] 14739- 7312 Apr, Screening for iron deficiency anemia Z13.0 [place] [address], [place] [address] Apr, Bipolar disorder, unspecified F31.9 [place] [address] [place] [address] 85569- 9372 07 Apr, 2017 Obesity during in third trimester O99.213 ; Third trimester Z34.93 ; Gestational diabetes mellitus (GDM) in third trimester controlled on oral hypoglycemic drug O24.415 ; 37 weeks gestation of Z3A.37 and Oligohydramnios in third trimester, single or unspecified fetus O41.03X0 [place] [address] [address] [id number] [place] [address] 20966- 9661 28 Mar, 2017 Third trimester Z34.93 [place] [address] [address] [id number] [place] [address] 81391- 0853 26 Mar, 2017 Gestational diabetes mellitus (GDM) in third trimester controlled on oral hypoglycemic drug O24.415 [place] [address] [address] [id number] [place] [address] 21734- 4853 Mar, [place] [address] [id number] [place] [address] 33114- 5136 Mar, Third trimester Z34.93 ; Gestational diabetes mellitus (GDM) in third trimester controlled on oral hypoglycemic drug O24.415 and 35 weeks gestation of Z3A.35 [place] [address] [address] [id number] [place] [address] 05056- 7557 15 Mar, 2017 BMI 50.0-59.9, adult Z68.43 and Bipolar disorder, unspecified F31.9 [place] [address] [place] [address] 68074- 0467 13 Mar, 2017 Diet controlled gestational diabetes mellitus (GDM), antepartum O24.410 [place] [address] [place] [address] 41701- 4679 07 Mar, 2017 33 weeks gestation of Z3A.33 ; Gestational diabetes mellitus (GDM) in third trimester controlled on oral hypoglycemic drug O24.415 ; Third trimester Z34.93 and Obesity affecting in third trimester O99.213 [place] [address] [place] [address] 19391- 8404 Mar, [place] [address] [address] [id number] [place] [address] 30474- 3819 24 Feb, 2017 Third trimester Z34.93 ; Encounter for immunization Z23 ; Gestational diabetes mellitus (GDM) in third trimester controlled on oral hypoglycemic drug O24.415 ; Obesity during in third trimester O99.213 and 31 weeks gestation of Z3A.31 [place] [address] [id number] [place] [address] 69340- 6759 Feb, [place] [address] [id number] [place] [address] 20558- 7661 Feb, Gestational diabetes mellitus (GDM) in third trimester, gestational diabetes method of control unspecified O24.419 [place] [address] [id number] [place] [address] 58912- 0479 Feb, [place] [address] [address] [id number] [place] [address] 59607- 2254 Feb, [place] [address] [address] [id number] [place] [address] 32266- 0050 Feb, Bipolar disorder, unspecified F31.9 and BMI 50.0-59.9, adult Z68.43 [place] [address] [place] [address] 94815- 9877 10 Feb, 2017 29 weeks gestation of Z3A.29 ; Gestational diabetes mellitus (GDM) in third trimester, gestational diabetes method of control unspecified O24.419 ; Third trimester Z34.93 ; Obesity affecting in third trimester O99.213 and BMI 50.0-59.9, adult Z68.43 [place] [address] [place] [address] 92324- 7875 Jan, Abnormal glucose tolerance test (GTT) R73.02 [place] [address] [place] [id number] [place] [address] [phone] 15 Jan, 2017 Dental examination Z01.20 [place] [address] [address] [id number] [place] [address] 42933- 4859 14 Jan, 2017 Bipolar disorder, unspecified F31.9 [place] [address] [address] [id number] [place] [address] 95753- 4852 12 Jan, 2017 25 weeks gestation of Z3A.25 ; Second trimester Z34.92 ; Gastro-esophageal reflux disease without esophagitis K21.9 ; Diseases of the digestive system complicating , second trimester O99.612 ; Abnormal ultrasonic finding on screening of mother O28.3 and BMI 50.0-59.9, adult Z68.43 [place] [address] 91315- 7473 05 Jan, 2017 [place] [address] 61167- 7963 30 Dec, 2016 [place] [address] 46589- 3027 14 Dec, 2016 Dental examination Z01.20 [place] [address] 92516- 0115 14 Dec, 2016 Second trimester Z34.92 ; 21 weeks gestation of Z3A.21 and Obesity affecting in second trimester O99.212 [place] [address] [address] [id number] [place] [address] 14558- 4163 13 Dec, 2016 [place] [address] 40652- 9701 10 Dec, 2016 Lump of right breast N63.10 ; Abscess of left thigh L02.416 and BMI 45.0-49.9, adult Z68.42 [facility] [id number] [place] [address] [phone] 10 Dec, 2016 Dental examination Z01.20 [place] [address] [address] [id number] [place] [address] 80958- 9588 08 Dec, 2016 [place] [address] [address] 0559 Dec, Bipolar disorder, unspecified F31.9 [facility] [id number] [place] [address] 92653- 7964 Nov, [facility] [address] [id number] [place] [address] 23595- 9303 Nov, [facility] [id number] [place] [address] 64028- 3185 Nov, 17 weeks gestation of Z3A.17 and Right non- suppurative otitis media H65.91 [facility] [address] [id number] [place] [address] 30636- 0231 Nov, [facility] [address] [id number] [place] [address] 37761- 6232 Nov, [facility] [address] [id number] [place] [address] 67759- 0360 Nov, Bipolar disorder, unspecified F31.9 [facility] [id number] [place] [address] 32837- 9520 10 Nov, 2016 16 weeks gestation of Z3A.16 ; Second trimester Z34.92 and Obesity affecting in second trimester O99.212 [facility] [address] [id number] Nov, Encounter for dental examination Z01.20 [facility] [address] [place] [address] 56513- 6079 Oct, [facility] [address] [place] [address] 25344- 3035 Oct, 12 weeks gestation of Z3A.12 ; First trimester Z34.90 and Obesity affecting in first trimester O99.211 [facility] [address], [place] [address]- 0961 Sep, [facility] [id number] [place] [address] 25903- 1889 Sep, [place] [address] [id number] [place] [address] 68102- 0513 Sep, Bipolar disorder, unspecified F31.9 [place] [address] [address] [id number] [place] [address] 94760- 4077 Sep, [place] [address] [address] [id number] [place] [address] 10551- 5594 Sep, [place] [address] [address] [id number] [place] [address] 95390- 5593 Sep, Normal , first Z34.00 [place] [address] [address] [id number] [place] [address] 08173- 9929 Sep, Normal , first Z34.00 ; 8 weeks gestation of Z3A.08 and Obesity affecting in first trimester O99.211 [place] [address] [id number] [place] [address] 54303- 4978 Sep, Anxiety disorder, unspecified F41.9 [place] [address] [address] [id number] [place] [address] 98282- 5378 Sep, [place] [address] [id number] [place] [address] 34478- 2977 Sep, Encounter for test, result unknown Z32.00 [place] [address] [id number] [place] [address] 29267- 0848 Aug, Anxiety disorder, unspecified F41.9 [place] [address] [id number] [place] [address] 62167- 7524 Jul, Suppurative hidradenitis L73.2 ; Metabolic syndrome E88.81 ; BMI 40.0-44.9, adult Z68.41 and High risk sexual behavior Z72.51 [place] [address] [id number] [place] [address] 68317- 8985 Jul, Anxiety disorder, unspecified F41.9 [place] [address] [address] [id number] [place] [address] 20822- 7075 June, Anxiety disorder, unspecified F41.9 ; Attention deficit hyperactivity disorder F90.9 and Bipolar disorder, unspecified F31.9 [place] [address] [id number] [place] [address] 75487- 8295 June, Attention deficit hyperactivity disorder F90.9 [place] [address] 21185- 9027 May, Attention deficit hyperactivity disorder F90.9 [place] [address] [id number] [place] [address] 63024- 3653 Apr, Attention deficit hyperactivity disorder F90.9 [place] [address] [id number] [place] [address] 78530- 3000 14 Mar, 2016 Abscess L02.91 and Screening for STD sexually transmitted disease Z11.3 [place] [address] [id number] [place] [address] 06403- 5703 Mar, Attention deficit hyperactivity disorder F90.9 [place] [address] [id number] [place] [address] 36190- 9889 Feb, Attention deficit hyperactivity disorder F90.9 [place] [address] [address] [id number] [place] [address] 07925- 8679 Feb, Attention deficit disorder of adult F98.8 and DMDD ( disruptive mood dysregulation disorder) F34.81 [place] [address] [id number] [place] [address] 77273- 4850 Jan, Exposure to sexually transmitted disease (STD) Z20.2 and Metabolic syndrome E88.[address] 06576- 7934 Jan, Possible exposure to STD Z20.2 ; BMI 40.0-44.9, adult Z68.41 ; Metabolic syndrome E88.81 ; Elevated fasting glucose R73.01 and Hypertriglyceridemia E78.1 [place] [address] [place] [address]- 7837 Jan, Possible exposure to STD Z20.2 ; Lumbago with sciatica, left side M54.42 ; Lumbago with sciatica, right side M54.41 ; BMI 40.0-44.9, adult Z68.41 ; Metabolic syndrome E88.81 ; Elevated fasting glucose R73.01 ; Hypertriglyceridemia E78.1 and Suppurative hidradenitis L73.2 [facility] [address] [id number] [place] [address] 77638- 7479 Dec, Attention deficit hyperactivity disorder F90.9 [facility] [address] 12308- 3363 Dec, [facility] [address] [id number] [place] [address] 00823- 5107 Nov, [facility] [address] 62663- 1025 Nov, [facility] [address] [address] [id number] [place] [address] 09119- 6819 Nov, [facility] [address] [id number] [place] [address] 65499- 7062 Nov, [facility] [address] [id number] [place] [address] 25600- 2642 30 Oct, 2015 Lumbago with sciatica, left side M54.42 and Other chronic pain G89.29 [facility] [address] [id number] [place] [address] 61283- 0249 Oct, Lumbago with sciatica, left side M54.42 ; Lumbago with sciatica, right side M54.41 ; Other chronic pain G89.29 and Suppurative hidradenitis L73.2 [facility] [id number] [place] [address] 03889- 0123 Oct, [facility] [address] [id number] [place] [address] 08340- 1804 Sep, [facility] [address], [place] [address]- 0449 Sep, Unprotected sexual intercourse Z72.51 ; Hidradenitis suppurativa L73.2 ; Elevated fasting glucose R73.01 ; BMI 40.0-44.9, adult Z68.41 and Irregular menses N92.6 [facility] [address] [id number] [place] [address] 42083- 2937 Aug, [place] [address] [id number] [place] [address] 02459- 4128 Jul, Routine health maintenance Z00.00 ; Abscess L02.91 ; H/O hidradenitis suppurativa Z87.2 ; Irregular menses N92.6 ; BMI 40.0-44.9, adult Z68.41 ; Elevated fasting glucose R73.01 and Hypertriglyceridemia E78.1 [place] [address] [id number] [place] [address] 48176- 1930 Jul, [facility] [id number] [place] [address] 18990 -7391 Jul, Hidradenitis suppurativa L73.2 [place] [address] [id number] [place] [address] 34445- 3030 Jul, Bipolar disorder, unspecified F31.9 ; Anxiety disorder, unspecified F41.9 and Attention deficit hyperactivity disorder F90.9 [place] [address] [id number] [place] [address] 07754- 1531 June, [place] [address] [id number] [place] [address] 50928- 3539 June, [facility] [address] [id number] [place] [address] 66839- 6205 May, [facility] [address] [id number] [place] [address] 07590- 6933 Apr, [facility] [address] [id number] [place] [address] 99238- 7398 16 Apr, 2016 Well woman exam Z01.419 ; BMI 40.0-44.9, adult Z68.41 ; Tobacco use Z72.0 ; Family history of diabetes mellitus Z83.3 ; Hidradenitis suppurativa L73.2 ; Routine screening for STI (sexually transmitted infection) Z11.3 ; Unprotected sexual intercourse Z72.51 and Family history of breast cancer Z80.[address] 77569- 2820 Apr, Bipolar disorder, unspecified F31.9 ; Anxiety disorder, unspecified F41.9 and Attention deficit hyperactivity disorder F90.[address] 699671- 2717 Mar, [address] 35043- 5330 Feb, [address] 68643- 6526 Feb, [address] 04744- 8620 Jan, Encounter for test, result negative Z32.02 and BMI 40.0-44.9, adult Z68.41 [place] [id number] [place] [address] 60011- 4268 Jan, Bipolar disorder, unspecified F31.9 ; Anxiety disorder, unspecified F41.9 and Attn-defct hyperactivity disorder, predom inattentive type F90.0 [place] [address] [id number] [place] [address] 72231- 7057 Jan, [address] 83498- 6938 Dec, [address] 16771- 3247 Dec, Bipolar disorder, unspecified F31.9 ; Attention deficit hyperactivity disorder F90.9 and Anxiety disorder, unspecified F41.9 [facility] [address], [place] [address]- 0936 27 Nov, 2014 Irregular menses N92.6 ; Unprotected sexual intercourse Z72.51 ; Screening for STD sexually transmitted disease Z11.3 ; General counseling and advice for contraceptive management Z30.09 ; Oral contraceptive pill surveillance Z30.41 ; BMI 40.0-44.9, adult Z68.41 and H/O hidradenitis suppurativa Z87.2 [facility] [id number] [place] [address] [id number] Sep, Dental examination V72.2 [facility] [address] [id number] [place] [address] 085451- 4526 Sep, Screen for STD (sexually transmitted disease) V74.5 and General counseling on prescription of oral contraceptives V25.01 [facility] [address] [place] [address] [id number]- 5096 14 May, 2014 [facility] [id number] [place] [address] [id number]- 3513 May, [facility] [address] [place] [address] [phone]- 8749 Apr, [facility] [id number] [place] [address] [phone]- 1739 30 Apr, 2014 [facility] [address], [place] [address]- 2986 Apr, [facility] [id number] [place] [address] [phone]- 0119 Apr, [facility] [address] [address] 5541 Apr, [facility] [address] [place] [address] [id number]- 6261 Apr, [facility] [address], [place] [address]- 6669 Apr, [facility] [id number] [place] [address]- 3751 Mar, 2014 [facility] [place] [facility] [address] [id number] [place] [address]- 3916 Mar, 2014 [facility] [place] [facility] [address] [id number] [place] [address]- 2826 Mar, 2014 [facility] [place] [facility] [address] [id number] [place] [address]- 7906 Mar, 2014 [facility] [place] [facility] [address] [id number] [place] [address]- 5470 Mar, 2014 [facility] [place] [facility] [address] [id number] [place] [address]- 5321 Mar, 2014 [facility] [place] [facility] [address] [id number] [place] [address]- 9378 Jan, [facility] [place] [facility] [address] [id number] [place] [address]- 5302 Jan, [facility] [place] [facility] [address] [id number] [place] [address]- 0624 Dec, [facility] [place] [facility] [address] [id number] [place] [address]- 3709 Dec, [facility] [place] [facility] [address] [facility] [id number] [place] [address]- 2584 Dec, [facility] [place] [facility] [address] [id number] [place] [address]- 8201 Dec, [facility] [place] [facility] [address] [id number] [place] [address]- 5085 Sep, [facility] [place] [facility] [address] [id number] [place] [address]- 3215 Sep, [facility] [place] [facility] [address] [id number] [place] 9632 Apr, [facility] [place] [facility] [address] [id number] [place] [address]- 3458 Apr, [facility] [id number] [address]- 6891 Mar, [facility] [address] 0476 Mar, [facility] [address], [place] [address]- 7097 Mar, [facility] [address]- 2445 Mar, [facility] [address], [place] [address]- 2972 Jan, [facility] [address] [place] [address] 19498- 4043 Jan, [facility] [address] [address] Dec, [facility] [id number] [address] Dec, [facility] [id number] [address] Dec, IMMUNIZATIONS No Known Immunizations SOCIAL HISTORY Never Assessed REASON FOR VISIT FYI PLAN OF CARE VITAL SIGNS MEDICATIONS Unknown Medications RESULTS No Results PROCEDURES No Known procedures INSTRUCTIONS MEDICATIONS ADMINISTERED No Known Medications MEDICAL (GENERAL) HISTORY Type Description Date Medical History Hidradenitis Supprativa Medical History Bipolar Disorder Medical History ADHD Medical History Due May 14, 2017 Surgical History pilonidal cyst removal tailbone Surgical History 2018 Hospitalization History Dehydration & concussion 07/23/2016 Hospitalization History child 2018
--- OUTSIDE RECORDS SUMMARY | 2017-09-24 22:48 | XMS REPORT ---
Author Author CONCETTA TIFFANY [facility] Address [address] [place] [address] Care Team Providers Care Melter Loader Name Role Phone HANNAHTRESSA TIFFANY Unavailable PROBLEMS Type Condition ICD9-CM Code MUH41-GI Code Onset Dates Condition Status SNOMED Code Problem Metabolic syndrome E88.81 Active 648273636 Problem Gastro-esophageal reflux disease without esophagitis K21.9 Active 887435302 Problem Obesity affecting in second trimester O99.212 Active 195859581651 Problem Gestational diabetes mellitus (GDM) in third trimester, gestational diabetes method of control unspecified O24.419 Active 63159502 Problem Abdominal pannus E65 Active 6341068864386 Problem Obesity affecting in third trimester O99.213 Active 918248087005 Problem BMI 50.0-59.9, adult Z68.43 Active 588370434 Problem Obesity during in third trimester O99.213 Active 865125019 Problem Gestational diabetes mellitus (GDM) in third trimester controlled on oral hypoglycemic drug O24.415 Active 41426023 Problem Anxiety disorder, unspecified F41.9 Active 124997210 Problem Bipolar disorder, unspecified F31.9 Active 12334671 Problem Lumbago with sciatica, left side M54.42 Active 469502917 Problem Lumbago with sciatica, right side M54.41 Active 548198588 Problem Hypertriglyceridemia E78.1 Active 449125416 Problem Other chronic pain G89.29 Active 63283593 Problem Suppurative hidradenitis L73.2 Active 64509889 Problem Attention deficit hyperactivity disorder F90.9 Active 176313352 ALLERGIES Substance Reaction Event Type Date Status Bees anaphylaxis Non Drug Allergy Sep, Active ENCOUNTERS Encounter Location Date Diagnosis [facility] [address] [facility] [id number] [address] May, [facility] [id number] [place] [address] 44257- 1372 Apr, [place] [id number] [place] [address] 34117- 1919 Apr, Abdominal pannus E65 and BMI 45.0-49.9, adult Z68.42 [place] [id number] [place] [address] 19771- 1801 20 Apr, 2017 Screening for iron deficiency anemia Z13.0 [place] [address] [address] [id number] [place] [address] 43002- 0986 15 Apr, 2017 Bipolar disorder, unspecified F31.9 [place] [id number] [place] [address] 89117- 0746 07 Apr, 2017 Obesity during in third trimester O99.213 ; Third trimester Z34.93 ; Gestational diabetes mellitus (GDM) in third trimester controlled on oral hypoglycemic drug O24.415 ; 37 weeks gestation of Z3A.37 and Oligohydramnios in third trimester, single or unspecified fetus O41.03X0 [place] [id number] [place] [address] 81759- 9486 28 Mar, 2017 Third trimester Z34.93 [place] [address] [place] [address] [id number] [place] [address] 70762- 6523 26 Mar, 2017 Gestational diabetes mellitus (GDM) in third trimester controlled on oral hypoglycemic drug O24.415 [place] [address] [id number] [place] [address] 98560- 7719 Mar, [place] [id number] [place] [address] 89591- 6465 Mar, Third trimester Z34.93 ; Gestational diabetes mellitus (GDM) in third trimester controlled on oral hypoglycemic drug O24.415 and 35 weeks gestation of Z3A.35 [place] [address] [place] [address] 14421- 1601 15 Mar, 2017 BMI 50.0-59.9, adult Z68.43 and Bipolar disorder, unspecified F31.9 [place] [address] [address] 1657 13 Mar, 2017 Diet controlled gestational diabetes mellitus (GDM), antepartum O24.410 [place] [address] [place] [address] 33787- 3117 07 Mar, 2017 33 weeks gestation of Z3A.33 ; Gestational diabetes mellitus (GDM) in third trimester controlled on oral hypoglycemic drug O24.415 ; Third trimester Z34.93 and Obesity affecting in third trimester O99.213 [place] [address] [place] [address] 72981- 0589 Mar, [place] [address] [id number] [place] [address] 75794- 9632 24 Feb, 2017 Third trimester Z34.93 ; Encounter for immunization Z23 ; Gestational diabetes mellitus (GDM) in third trimester controlled on oral hypoglycemic drug O24.415 ; Obesity during in third trimester O99.213 and 31 weeks gestation of Z3A.31 [place] [id number] [place] [address] 74670- 2000 Feb, [place] [address] [address] [id number] [place] [address] 80674- 5115 Feb, Gestational diabetes mellitus (GDM) in third trimester, gestational diabetes method of control unspecified O24.419 [place] [address] [address] 4077 Feb, [place] [id number] [place] [address] 98695- 7172 Feb, [place] [id number] [place] [address] 91686- 1719 Feb, Bipolar disorder, unspecified F31.9 and BMI 50.0-59.9, adult Z68.43 [place] [address] [address] 1732 10 Feb, 2017 29 weeks gestation of Z3A.29 ; Gestational diabetes mellitus (GDM) in third trimester, gestational diabetes method of control unspecified O24.419 ; Third trimester Z34.93 ; Obesity affecting in third trimester O99.213 and BMI 50.0-59.9, adult Z68.43 [place] [address] [id number] [place] [address] 23668- 9991 15 Jan, 2017 Abnormal glucose tolerance test (GTT) R73.02 [facility] [address] [id number] Jan, 2017 Dental examination Z01.20 [place] [address] 00773- 8231 14 Jan, 2017 Bipolar disorder, unspecified F31.[address] 40662- 7756 12 Jan, 2017 25 weeks gestation of Z3A.25 ; Second trimester Z34.92 ; Gastro-esophageal reflux disease without esophagitis K21.9 ; Diseases of the digestive system complicating , second trimester O99.612 ; Abnormal ultrasonic finding on screening of mother O28.3 and BMI 50.0-59.9, adult Z68.43 [place] [address] 94206- 4427 05 Jan, 2017 [place] [address] [address] [id number] [place] [address] 28640- 8762 30 Dec, 2016 [place] [address] 22991- 8803 14 Dec, 2016 Dental examination Z01.20 [place] [address] [id number] [place] [address] 76764- 0567 14 Dec, 2016 Second trimester Z34.92 ; 21 weeks gestation of Z3A.21 and Obesity affecting in second trimester O99.212 [place] [address] [id number] [place] [address] 24663- 2423 13 Dec, 2016 [place] [address] [address] [id number] [place] [address] 51250- 4908 10 Dec, 2016 Lump of right breast N63.10 ; Abscess of left thigh L02.416 and BMI 45.0-49.9, adult Z68.42 [facility] [address] [place] [address] [id number] Dec, Dental examination Z01.20 [facility] [address] [address]- 3762 08 Dec, 2016 [facility] [id number] [place] [address] 65834- 1580 Dec, Bipolar disorder, unspecified F31.9 [facility] [id number] [place] [address] 30700- 7416 Nov, [facility] [id number] [place] [address] 58114- 2631 Nov, [facility] [id number] [place] [address] 92091- 0928 Nov, 17 weeks gestation of Z3A.17 and Right non- suppurative otitis media H65.91 [facility] [address] [address] 1604 Nov, [facility] [id number] [place] [address] 40144- 1082 Nov, [facility] [address] [address]- 3485 Nov, Bipolar disorder, unspecified F31.9 [facility] [id number] [place] [address] 62192- 2005 Nov, 16 weeks gestation of Z3A.16 ; Second trimester Z34.92 and Obesity affecting in second trimester O99.212 [facility] [address] [place] [address] [phone] Nov, Encounter for dental examination Z01.20 [facility] [address] [address]- 9706 Oct, [facility] [address] [address]- 7092 Oct, 12 weeks gestation of Z3A.12 ; First trimester Z34.90 and Obesity affecting in first trimester O99.211 [facility] [address], [place] [address] 5547 Sep, [facility] [id number] [place] [address] 19027- 2255 Sep, [facility] [id number] [place] [address] 88950- 3646 Sep, Bipolar disorder, unspecified F31.9 [place] [address] [id number] [place] [address] 01239- 0879 Sep, [place] [address] [id number] [place] [address] 68030- 2154 Sep, [place] [address] [id number] [place] [address] 00374- 4355 Sep, Normal , first Z34.00 [place] [address] [id number] [place] [address] 68446- 0194 Sep, Normal , first Z34.00 ; 8 weeks gestation of Z3A.08 and Obesity affecting in first trimester O99.211 [place] [address] [address]- 0547 Sep, Anxiety disorder, unspecified F41.9 [place] [id number] [address]- 6782 Sep, [place] [address] [address] [id number] [place] [address] 58708- 3836 Sep, Encounter for test, result unknown Z32.00 [facility] [address] [address]- 1380 Aug, Anxiety disorder, unspecified F41.9 [facility] [address] [id number] [place] [address] 22061- 5288 Jul, Suppurative hidradenitis L73.2 ; Metabolic syndrome E88.81 ; BMI 40.0-44.9, adult Z68.41 and High risk sexual behavior Z72.51 [place] [address] [place] [address] 06899- 4612 Jul, Anxiety disorder, unspecified F41.9 [place] [address] [id number] [place] [address] 76970- 8133 June, Anxiety disorder, unspecified F41.9 ; Attention deficit hyperactivity disorder F90.9 and Bipolar disorder, unspecified F31.9 [place] [address] [id number] [place] [address] 91568- 5581 June, Attention deficit hyperactivity disorder F90.9 [place] [address] [id number] [place] [address] 48876- 8262 May, Attention deficit hyperactivity disorder F90.9 [place] [address] [id number] [place] [address] 52274- 1594 Apr, Attention deficit hyperactivity disorder F90.9 [place] [address] [id number] [place] [address] 98904- 5695 14 Mar, 2016 Abscess L02.91 and Screening for STD sexually transmitted disease Z11.3 [place] [address] [address] [id number] [place] [address] 55901- 0160 Mar, Attention deficit hyperactivity disorder F90.9 [place] [address] [id number] [place] [address] 51211- 7365 Feb, Attention deficit hyperactivity disorder F90.9 [place] [address] [id number] [place] [address] 16344- 5876 Feb, Attention deficit disorder of adult F98.8 and DMDD ( disruptive mood dysregulation disorder) F34.81 [place] [address] [place] [address] 76617- 3790 Jan, Exposure to sexually transmitted disease (STD) Z20.2 and Metabolic syndrome E88.81 [facility] [id number] [place] [address] 77039- 1706 Jan, Possible exposure to STD Z20.2 ; BMI 40.0-44.9, adult Z68.41 ; Metabolic syndrome E88.81 ; Elevated fasting glucose R73.01 and Hypertriglyceridemia E78.1 [place] [address] [address] [id number] [place] [address] 47981- 5439 Jan, Possible exposure to STD Z20.2 ; Lumbago with sciatica, left side M54.42 ; Lumbago with sciatica, right side M54.41 ; BMI 40.0-44.9, adult Z68.41 ; Metabolic syndrome E88.81 ; Elevated fasting glucose R73.01 ; Hypertriglyceridemia E78.1 and Suppurative hidradenitis L73.2 [place] [address] [id number] [place] [address] 68341- 2394 Dec, Attention deficit hyperactivity disorder F90.9 [place] [address] 51035- 1961 Dec, [place] [address] 07280- 8012 Nov, [place] [address] [address] [id number] [place] [address] 53298- 4529 Nov, [place] [address] [place] [address] [id number] [place] [address] 88287- 3400 Nov, [facility] [id number] [place] [address] 57442- 3118 Nov, [facility] [address] [place] [id number] [place] [address] 04586- 7175 30 Oct, 2015 Lumbago with sciatica, left side M54.42 and Other chronic pain G89.29 [facility] [address] [place] [address] [id number] [place] [address] 08537- 8392 Oct, Lumbago with sciatica, left side M54.42 ; Lumbago with sciatica, right side M54.41 ; Other chronic pain G89.29 and Suppurative hidradenitis L73.2 [facility] [address] [place] [address] 06786- 7306 Oct, [facility] [id number] [place] [address] 90005- 8586 Sep, [facility] [address] [id number] [place] [address] 16611- 3382 Sep, Unprotected sexual intercourse Z72.51 ; Hidradenitis suppurativa L73.2 ; Elevated fasting glucose R73.01 ; BMI 40.0-44.9, adult Z68.41 and Irregular menses N92.6 [place] [address] [place] [address] [id number] [place] [address] 15187- 4169 Aug, [place] [address] [place] [address] [id number] [place] [address] 00517- 6297 Jul, Routine health maintenance Z00.00 ; Abscess L02.91 ; H/O hidradenitis suppurativa Z87.2 ; Irregular menses N92.6 ; BMI 40.0-44.9, adult Z68.41 ; Elevated fasting glucose R73.01 and Hypertriglyceridemia E78.1 [place] [address] [address]- 0680 Jul, [facility] [address] [place] [address] 69402 -8569 Jul, Hidradenitis suppurativa L73.2 [facility] [address] [place] [address] 10503- 1260 Jul, Bipolar disorder, unspecified F31.9 ; Anxiety disorder, unspecified F41.9 and Attention deficit hyperactivity disorder F90.9 [facility] [address] [address]- 0542 June, [place] [address] [address] [id number] [place] [address] 16194- 0323 June, [place] [address] [place] [address] 63000- 6883 May, [place] [id number] [place] [address] 646115- 5222 Apr, [place] [address] [address] [id number] [place] [address] 77710- 4218 Apr, Well woman exam Z01.419 ; BMI 40.0-44.9, adult Z68.41 ; Tobacco use Z72.0 ; Family history of diabetes mellitus Z83.3 ; Hidradenitis suppurativa L73.2 ; Routine screening for STI (sexually transmitted infection) Z11.3 ; Unprotected sexual intercourse Z72.51 and Family history of breast cancer Z80.3 [place] [address] [id number] [place] [address] 59229- 8150 Apr, Bipolar disorder, unspecified F31.9 ; Anxiety disorder, unspecified F41.9 and Attention deficit hyperactivity disorder F90.9 [place] [address] [id number] [place] [address] 51476- 5389 Mar, [place] [address] [address] [id number] [place] [address] 93375- 4172 Feb, [place] [address] [address] [id number] [place] [address] 75838- 4268 Feb, [place] [address] [address] [id number] [place] [address] 74528- 8345 Jan, Encounter for test, result negative Z32.02 and BMI 40.0-44.9, adult Z68.41 [place] [address] [place] [address] [id number] [place] [address] 92732- 0588 Jan, Bipolar disorder, unspecified F31.9 ; Anxiety disorder, unspecified F41.9 and Attn-defct hyperactivity disorder, predom inattentive type F90.0 [place] [id number] [place] [address] 03021- 9309 Jan, [facility] [id number] [place] [address] 05169- 2224 Dec, [facility] [id number] [place] [address] 959477- 3859 Dec, Bipolar disorder, unspecified F31.9 ; Attention deficit hyperactivity disorder F90.9 and Anxiety disorder, unspecified F41.9 [facility] [id number] [place] [address] 48406- 3064 Nov, Irregular menses N92.6 ; Unprotected sexual intercourse Z72.51 ; Screening for STD sexually transmitted disease Z11.3 ; General counseling and advice for contraceptive management Z30.09 ; Oral contraceptive pill surveillance Z30.41 ; BMI 40.0-44.9, adult Z68.41 and H/O hidradenitis suppurativa Z87.2 [facility] [id number] [place] [address] [phone] Sep, Dental examination V72.2 [facility] [id number] [place] [address] 83568- 1100 Sep, Screen for STD (sexually transmitted disease) V74.5 and General counseling on prescription of oral contraceptives V25.01 [facility] [id number] [place] [address] 86376- 6705 May, [facility] [id number] [place] [address] 39555- 1160 May, [facility] [id number] [place] [address] [phone]- 4084 Apr, [facility] [id number] [place] [address] 41088- 9306 Apr, [facility] [id number] [place] [address] [id number]- 5259 Apr, [facility] [id number] [place] [address] 68651- 2349 Apr, [facility] [place] [facility] [address] [id number] [place] [address]- 2390 Apr, 2014 [facility] [place] [facility] [address] [id number] [place] [address]- 8800 Apr, 2014 [facility] [place] [facility] [address] [id number] [place] [address]- 6348 Apr, 2014 [facility] [place] [facility] [address] [id number] [place] [address]- 9286 Mar, 2014 [facility] [place] [facility] [address] [id number] [place] [address]- 3279 Mar, 2014 [facility] [place] [facility] [address] [id number] [place] [address]- 0534 Mar, 2014 [facility] [place] [facility] [address] [facility] [id number] [place] [address]- 6311 Mar, 2014 [facility] [place] [facility] [address] [facility] [id number] [place] [address]- 1662 Mar, 2014 [facility] [place] [facility] [address] [id number] [place] [address]- 0270 Mar, [facility] [place] [facility] [address] [facility] [id number] [place] [address]- 5444 Jan, [facility] [place] [facility] [address] [facility] [id number] [place] [address]- 6845 Jan, [facility] [place] [facility] [address] [id number] [place] [address]- 9894 Dec, [facility] [place] [facility] [address] [id number] [place] [address]- 2114 Dec, [facility] [place] [facility] [address] [id number] [place] [address]- 1559 Dec, [facility] [place] [facility] [address] [facility] [id number] [place] 5429 Dec, [facility] [place] [facility] [address] [facility] [id number] [address]- 0404 Sep, [facility] [address] [address]- 0219 Sep, [facility] [address] 6252 Apr, [facility] [address] [address]- 2881 Apr, [facility] [address] [address]- 1690 Mar, [facility] [address] [place] [address] 112517- 7828 Mar, [facility] [id number] 5989 Mar, [facility] [address] [address]- 6828 Mar, [facility] [address] [address]- 7511 Jan, [facility] [address] [address]- 2985 Jan, [facility] [address] [address]- 3481 Dec, [facility] [address] [address]- 1552 Dec, [facility] [address] [address]- 7209 Dec, IMMUNIZATIONS No Known Immunizations SOCIAL HISTORY Never Assessed REASON FOR VISIT BH intake CBrumbackRN PLAN OF CARE Activity Details Follow Up 6 Weeks Reason: VITAL SIGNS Height 64 in 2016-10-03 Weight 294.6 lbs 2016-10-03 Heart Rate 88 bpm 2016-10-03 Respiratory Rate 20 2016-10-03 BMI 50.56 kg/m2 2016-10-03 Blood pressure systolic 114 mmHg 2016-10-03 Blood pressure diastolic 74 mmHg 2016-10-03 MEDICATIONS Medication Instructions Dosage Frequency Start Date End Date Duration Status Vitamin 27-0.8 MG Active Tums Active RESULTS No Results PROCEDURES No Known procedures INSTRUCTIONS MEDICATIONS ADMINISTERED No Known Medications MEDICAL (GENERAL) HISTORY Type Description Date Medical History Hidradenitis Supprativa Medical History Bipolar Disorder Medical History ADHD Medical History Due May 14, 2017 Surgical History pilonidal cyst removal tailbone Surgical History 2018 Hospitalization History Dehydration & concussion 07/23/2016
--- OUTSIDE RECORDS SUMMARY | 2017-09-24 22:49 | XMS REPORT ---
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 Active [id number] Problem Anxiety disorder, unspecified F41.9 Active 186048029 Problem Lesion of sciatic nerve, left lower limb G57.02 Active 842498387149592 Problem Abdominal pannus E65 Active 5755321756455 Problem Obesity during in third trimester O99.213 Active 310356108 Problem Post depression F53 Active 26838589 Problem Gestational diabetes mellitus (GDM) in third trimester, gestational diabetes method of control unspecified O24.419 Active 75167684 Problem Lumbago with sciatica, left side M54.42 Active 876038330 Problem Lumbago with sciatica, right side M54.41 Active 642709442 Problem Bipolar disorder, unspecified F31.9 Active 52519114 Problem Hypertriglyceridemia E78.1 Active 260779776 Problem Attention deficit hyperactivity disorder F90.9 Active 867226239 Problem Metabolic syndrome E88.81 Active 890122849 Problem Other chronic pain G89.29 Active 03259834 Problem Obesity affecting in second trimester O99.212 Active 589790262575 Problem Suppurative hidradenitis L73.2 Active 14438798 Problem Gastro-esophageal reflux disease without esophagitis K21.9 Active 186962424 ALLERGIES No Information ENCOUNTERS Encounter Location Date Diagnosis [facility] [address] [facility] [id number] [address] Oct, [place] [address] [place] [address] 24814- 3720 Jul, Bipolar disorder, unspecified F31.9 [place] [address] [place] [address] 94195- 1324 Jul, Bipolar disorder, unspecified F31.9 ; Attention deficit hyperactivity disorder F90.9 and BMI 50.0-59.9, adult Z68.43 [place] [address] [address] 14 Jul, 2017 Somatic dysfunction of pelvis region M99.05 ; Somatic dysfunction of sacral region M99.04 ; Somatic dysfunction of lumbar region M99.03 ; Lesion of sciatic nerve, left lower limb G57.02 ; Lesion of sciatic nerve, 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 and BMI 50.0-59.9, adult Z68.43 [place] [address] [place] [id number] [place] [address] 10570- 9819 June, [place] [address] [place] [id number] [place] [address] 11263- 9587 June, Bipolar disorder, unspecified F31.9 ; Attention deficit hyperactivity disorder F90.9 ; High risk medication use Z79.899 and BMI 50.0- 59.9, adult Z68.43 [place] [address] [address] 4[address] June, [place] [address] [place] [id number] [place] [address] 58889- 8239 June, Hidradenitis suppurativa L73.2 and BMI 50.0-59.9, adult Z68.43 [place] [address] [place] [address] 98286- 0246 June, Bipolar disorder, unspecified F31.9 and BMI 50.0-59.9, adult Z68.43 [place] [address] [place] [address] 56764- 6732 May, [place] [address] [place] [id number] [place] [address] 31476- 1786 May, Lumbago with sciatica, left side M54.42 ; care and examination Z39.2 ; Lumbago with sciatica, right side M54.41 ; Other chronic pain G89.29 ; BMI 50.0-59.9, adult Z68.43 ; Abdominal pannus E65 ; Suppurative hidradenitis L73.2 and Post depression F53 [place] [address] [place] [id number] [place] [address] 73964- 0739 Apr, [place] [address] 00897- 7347 Apr, Abdominal pannus E65 and BMI 45.0-49.9, adult Z68.42 [place] [address] 72591- 5412 Apr, Screening for iron deficiency anemia Z13.0 [place] [address] [place] [id number] [place] [address] 12692- 0938 15 Apr, 2017 Bipolar disorder, unspecified F31.9 [place] [address] [place] [id number] [place] [address] 51507- 0593 07 Apr, 2017 Obesity during in third trimester O99.213 ; Third trimester Z34.93 ; Gestational diabetes mellitus (GDM) in third trimester controlled on oral hypoglycemic drug O24.415 ; 37 weeks gestation of Z3A.37 and Oligohydramnios in third trimester, single or unspecified fetus O41.03X0 [place] [address] [place] [id number] [place] [address] 08221- 0049 Mar, Third trimester Z34.93 [place] [address] [place] [id number] [place] [address] 91994- 6164 26 Mar, 2017 Gestational diabetes mellitus (GDM) in third trimester controlled on oral hypoglycemic drug O24.415 [place] [address] 66518- 2060 Mar, [place] [address] [place] [address] 40903- 5294 Mar, Third trimester Z34.93 ; Gestational diabetes mellitus (GDM) in third trimester controlled on oral hypoglycemic drug O24.415 and 35 weeks gestation of Z3A.35 [place] [address] [place] [id number] [place] [address] 36856- 5050 15 Mar, 2017 BMI 50.0-59.9, adult Z68.43 and Bipolar disorder, unspecified F31.9 [place] [address] [place] [id number] [place] [address] 42930- 5692 13 Mar, 2017 Diet controlled gestational diabetes mellitus (GDM), antepartum O24.410 [place] [address] [place] [id number] [place] [address] 38446- 4849 07 Mar, 2017 33 weeks gestation of Z3A.33 ; Gestational diabetes mellitus (GDM) in third trimester controlled on oral hypoglycemic drug O24.415 ; Third trimester Z34.93 and Obesity affecting in third trimester O99.213 [place] [address] [place] [id number] [place] [address] 82327- 6171 Mar, [place] [address] [place] [address] 96127- 0105 Feb, Third trimester Z34.93 ; Encounter for immunization Z23 ; Gestational diabetes mellitus (GDM) in third trimester controlled on oral hypoglycemic drug O24.415 ; Obesity during in third trimester O99.213 and 31 weeks gestation of Z3A.31 [place] [address] [place] [address] 95878- 3079 Feb, [place] [address] [place] [id number] [place] [address] 15307- 6489 Feb, Gestational diabetes mellitus (GDM) in third trimester, gestational diabetes method of control unspecified O24.419 [place] [address] [place] [id number] [place] [address] 26370- 3191 Feb, [place] [address] [place] [id number] [place] [address] 28185- 7826 Feb, [place] [address] 95740- 9793 Feb, Bipolar disorder, unspecified F31.9 and BMI 50.0-59.9, adult Z68.43 [place] [address] 67078- 8192 10 Feb, 2017 29 weeks gestation of Z3A.29 ; Gestational diabetes mellitus (GDM) in third trimester, gestational diabetes method of control unspecified O24.419 ; Third trimester Z34.93 ; Obesity affecting in third trimester O99.213 and BMI 50.0-59.9, adult Z68.[address] 77108- 8720 15 Jan, 2017 Abnormal glucose tolerance test (GTT) R73.02 [facility] [address] [id number] 15 Jan, 2017 Dental examination Z01.[address] 07496- 0805 14 Jan, 2017 Bipolar disorder, unspecified F31.9 [place] [id number] [place] [address] 86238- 6765 12 Jan, 2017 25 weeks gestation of Z3A.25 ; Second trimester Z34.92 ; Gastro-esophageal reflux disease without esophagitis K21.9 ; Diseases of the digestive system complicating , second trimester O99.612 ; Abnormal ultrasonic finding on screening of mother O28.3 and BMI 50.0-59.9, adult Z68.43 [place] [address] 14872- 3208 05 Jan, 2017 [place] [address] 94773- 5993 Dec, [address] 47138- 6212 Dec, Dental examination Z01.20 [facility] [address] [place] [id number] [place] [address] 19214- 8900 14 Dec, 2016 Second trimester Z34.92 ; 21 weeks gestation of Z3A.21 and Obesity affecting in second trimester O99.212 [facility] [address] [place] [id number] [place] [address] 94398- 0975 13 Dec, 2016 [facility] [address] 77413- 8317 Dec, Lump of right breast N63.10 ; Abscess of left thigh L02.416 and BMI 45.0-49.9, adult Z68.42 [facility] [address] [place] [id number] [place] [address] [id number] 10 Dec, 2016 Dental examination Z01.20 [facility] [address] [place] [id number] [place] [address] 12529- 9165 08 Dec, 2016 [facility] [address] [place] [id number] [place] [address] 06823- 5633 Dec, Bipolar disorder, unspecified F31.9 [facility] [address] [place] [id number] [place] [address] 11896- 1672 24 Nov, 2016 [facility] [address] [place] [id number] [place] [address] 43432- 2818 Nov, [facility] [address] [place] [id number] [place] [address] 09270- 9075 Nov, 17 weeks gestation of Z3A.17 and Right non- suppurative otitis media H65.91 [facility] [address] [place] [id number] [place] [address] 11634- 8020 Nov, [facility] [address] [place] [id number] [place] [address] 51045- 8060 Nov, [facility] [address] [place] [id number] [place] [address] 39444- 0296 Nov, Bipolar disorder, unspecified F31.9 [facility] [address] [place] [id number] [address]- 1249 10 Nov, 2016 16 weeks gestation of Z3A.16 ; Second trimester Z34.92 and Obesity affecting in second trimester O99.212 [facility] [address] [place] [id number] [address] 03 Nov, 2016 Encounter for dental examination Z01.20 [facility] [address], [place] [address]- 7810 13 Oct, 2016 [facility] [address], [place] [address]- 6043 12 Oct, 2016 12 weeks gestation of Z3A.12 ; First trimester Z34.90 and Obesity affecting in first trimester O99.211 [facility] [address], [place] [address]- 5796 Sep, [facility] [address], [place] [address]- 7220 Sep, [facility] [address] [place] [address] [address]- 2756 Sep, Bipolar disorder, unspecified F31.9 [facility] [address], [place] [address]- 7378 Sep, [facility] [address], [place] [address]- 5459 Sep, [facility] [address], [place] [address]- 0915 Sep, Normal , first Z34.00 [facility] [address] [place] [id number] [place] [address] 78563- 6924 Sep, Normal , first Z34.00 ; 8 weeks gestation of Z3A.08 and Obesity affecting in first trimester O99.211 [facility] [address], [place] [address]- 9123 Sep, Anxiety disorder, unspecified F41.9 [place] [address] [place] [id number] [place] [address] 63165- 8804 Sep, [place] [address] [place] [id number] [place] [address] 23409- 2916 Sep, Encounter for test, result unknown Z32.00 [place] [address] 32512- 4500 Aug, Anxiety disorder, unspecified F41.9 [place] [address] [place] [id number] [place] [address] 47407- 2330 Jul, Suppurative hidradenitis L73.2 ; Metabolic syndrome E88.81 ; BMI 40.0-44.9, adult Z68.41 and High risk sexual behavior Z72.51 [place] [address] [place] [id number] [place] [address] 97626- 5884 Jul, Anxiety disorder, unspecified F41.9 [place] [address] [place] [id number] [place] [address] 90123- 6739 June, Anxiety disorder, unspecified F41.9 ; Attention deficit hyperactivity disorder F90.9 and Bipolar disorder, unspecified F31.9 [place] [address] [place] [id number] [place] [address] 06400- 9031 June, Attention deficit hyperactivity disorder F90.9 [place] [address] [place] [id number] [place] [address] 05391- 4440 May, Attention deficit hyperactivity disorder F90.9 [place] [address] [place] [id number] [place] [address] 01744- 6179 Apr, Attention deficit hyperactivity disorder F90.9 [place] [address] [place] [id number] [place] [address] 30805- 7813 14 Mar, 2016 Abscess L02.91 and Screening for STD sexually transmitted disease Z11.3 [place] [address] [place] [id number] [place] [address] 03534- 1498 Mar, Attention deficit hyperactivity disorder F90.9 [facility] [address] [place] [address] 26887- 0315 Feb, Attention deficit hyperactivity disorder F90.9 [facility] [address] [place] [id number] [place] [address] 65920- 7339 Feb, Attention deficit disorder of adult F98.8 and DMDD ( disruptive mood dysregulation disorder) F34.81 [place] [address] [place] [id number] [place] [address] 47175- 1885 Jan, Exposure to sexually transmitted disease (STD) Z20.2 and Metabolic syndrome E88.81 [place] [id number] [place] [address] 43423- 6518 Jan, Possible exposure to STD Z20.2 ; BMI 40.0-44.9, adult Z68.41 ; Metabolic syndrome E88.81 ; Elevated fasting glucose R73.01 and Hypertriglyceridemia E78.1 [place] [address] [place] [address] 19387- 9008 Jan, Possible exposure to STD Z20.2 ; Lumbago with sciatica, left side M54.42 ; Lumbago with sciatica, right side M54.41 ; BMI 40.0-44.9, adult Z68.41 ; Metabolic syndrome E88.81 ; Elevated fasting glucose R73.01 ; Hypertriglyceridemia E78.1 and Suppurative hidradenitis L73.2 [place] [address] [place] [address] 20276- 9338 Dec, Attention deficit hyperactivity disorder F90.9 [place] [address] [place] [address] 33085- 0416 Dec, [place] [address] [place] [id number] [place] [address] 03704- 5530 Nov, [place] [address] [place] [id number] [place] [address] 42484- 8930 Nov, [place] [address] [place] [address]- 1929 Nov, [place] [address] [place] [id number] [place] [address] 11044- 4962 Nov, [place] [address] [place] [id number] [place] [address] 70198- 5540 Oct, Lumbago with sciatica, left side M54.42 and Other chronic pain G89.29 [place] [address] [place] [id number] [place] [address] 27631- 8753 22 Oct, 2015 Lumbago with sciatica, left side M54.42 ; Lumbago with sciatica, right side M54.41 ; Other chronic pain G89.29 and Suppurative hidradenitis L73.2 [place] [address] [place] [id number] [place] [address] 59983- 3534 Oct, [place] [address] [place] [id number] [place] [address] 97531- 0007 Sep, [place] [address] [place] [id number] [place] [address] 62386- 2299 Sep, Unprotected sexual intercourse Z72.51 ; Hidradenitis suppurativa L73.2 ; Elevated fasting glucose R73.01 ; BMI 40.0-44.9, adult Z68.41 and Irregular menses N92.6 [place] [address] [place] [address] 40163- 1189 Aug, [place] [address] [place] [id number] [place] [address] 67065- 8304 24 Jul, 2015 Routine health maintenance Z00.00 ; Abscess L02.91 ; H/O hidradenitis suppurativa Z87.2 ; Irregular menses N92.6 ; BMI 40.0-44.9, adult Z68.41 ; Elevated fasting glucose R73.01 and Hypertriglyceridemia E78.1 [place] [address] [place] [address] 80154- 1170 Jul, [facility] [address], [place] [address]2454 08 Jul, 2015 Hidradenitis suppurativa L73.2 [facility] [address], [place] [address]- 1575 Jul, Bipolar disorder, unspecified F31.9 ; Anxiety disorder, unspecified F41.9 and Attention deficit hyperactivity disorder F90.9 [place] [address], [place] [address]- 2746 June, [place] [address] [place] [id number] [place] [address] 46683- 1816 June, [place] [address] [place] [id number] [place] [address] 95712- 0404 May, [place] [address], [place] [address]- 6821 Apr, [place] [address] [place] [address] 19860- 2064 Apr, Well woman exam Z01.419 ; BMI 40.0-44.9, adult Z68.41 ; Tobacco use Z72.0 ; Family history of diabetes mellitus Z83.3 ; Hidradenitis suppurativa L73.2 ; Routine screening for STI (sexually transmitted infection) Z11.3 ; Unprotected sexual intercourse Z72.51 and Family history of breast cancer Z80.3 [place] [address], [place] [address]- 0325 Apr, Bipolar disorder, unspecified F31.9 ; Anxiety disorder, unspecified F41.9 and Attention deficit hyperactivity disorder F90.9 [place] [address], [place] [address]- 1778 Mar, [facility] [address], [place] [address]- 9560 Feb, [place] [address] [place] [id number], [place] [address]- 0244 Feb, [place] [address] [place] [address] 24455- 6330 Jan, Encounter for test, result negative Z32.02 and BMI 40.0-44.9, adult Z68.41 [place] [address] [place] [id number] [place] [address] 90467- 4790 Jan, Bipolar disorder, unspecified F31.9 ; Anxiety disorder, unspecified F41.9 and Attn-defct hyperactivity disorder, predom inattentive type F90.0 [place] [address] [place] [id number] [place] [address] 07343- 4207 Jan, [place] [address] 14448- 9253 Dec, [place] [address] [place] [id number] [place] [address] 94145- 7844 Dec, Bipolar disorder, unspecified F31.9 ; Attention deficit hyperactivity disorder F90.9 and Anxiety disorder, unspecified F41.9 [place] [address] [place] [id number] [place] [address] 18577- 6915 Nov, Irregular menses N92.6 ; Unprotected sexual intercourse Z72.51 ; Screening for STD sexually transmitted disease Z11.3 ; General counseling and advice for contraceptive management Z30.09 ; Oral contraceptive pill surveillance Z30.41 ; BMI 40.0-44.9, adult Z68.41 and H/O hidradenitis suppurativa Z87.2 [facility] [address] [place] [address] [id number] Sep, Dental examination V72.2 [place] [address] [place] [id number] [place] [address] 67832- 0210 Sep, Screen for STD (sexually transmitted disease) V74.5 and General counseling on prescription of oral contraceptives V25.01 [place] [address] [place] [id number] [place] [address] 19124- 1349 May, [place] [address] [place] [id number] [place] [address] 19343- 5576 May, [facility] [place] [facility] [address] [id number] [place] [address]- 8804 Apr, [facility] [place] [facility] [address] [facility] [id number] [place] [address]- 4081 Apr, [facility] [place] [facility] [address] [facility] [id number] [place] [address]- 9846 Apr, [facility] [place] [facility] [address] [facility] [id number] [place] [address]- 9615 Apr, [facility] [place] [facility] [address] [facility] [id number] [place] [address]- 9962 Apr, [facility] [place] [facility] [address] [facility] [id number] [place] [address]- 7717 Apr, [facility] [place] [facility] [address] [place] [id number] [place] [address]- 2955 Apr, [facility] [place] [facility] [address] [facility] [id number] [place] [address]- 4128 Mar, [facility] [place] [facility] [address] [place] [id number] [place] [address]- 5809 Mar, 2014 [facility] [place] [facility] [address] [facility] [id number] [place] [address]- 0237 Mar, 2014 [facility] [place] [facility] [address] [place] [id number] [place] [place] [address]- 8945 Mar, 2014 [facility] [place] [facility] [address] [facility] [id number] [address]- 1390 Mar, 2014 [facility] [place] [facility] [address] [facility] [id number] [place] 2383 Mar, 2014 [facility] [place] [facility] [address] [facility] [id number] [place] [address]- 7119 Jan, [facility] [place] [facility] [address] [facility] [id number], [place] [address]- 7560 Jan, [facility] [place] [facility] [address] [id number] [place] [address]- 7212 Dec, [facility] [place] [facility] [address] [id number] [place] [address]- 2534 Dec, [facility] [place] [facility] [address] [id number] [place] [address]- 2188 Dec, [facility] [place] [facility] [address] [id number] [place] [address]- 6094 Dec, [facility] [place] [facility] [address] [id number] [place] [address]- 4391 Sep, [facility] [place] [facility] [address] [id number] [place] [address]- 3048 Sep, [facility] [place] [facility] [address] [id number] [place] [address]- 1384 Apr, [facility] [place] [facility] [address] [id number] [place] [address]- 2636 Apr, [facility] [place] [facility] [address] [id number] [place] [address]- 3541 Mar, [facility] [place] [facility] [address] [id number] [place] [address] Mar, [facility] [place] [facility] [address] [id number] [place] [address] Mar, [facility] [place] [facility] [address] [id number], [place] [address] Mar, [facility] [place] [facility] [address] [id number] [place] [address] Jan, [facility] [place] [facility] [address] [id number] [place] [address] Jan, [facility] [place] [facility] [address] [id number] [place] [address] Dec, [facility] [place] [facility] [address] [id number], [place] [address] Dec, [facility] [address] [facility] [place] [id number] [place] [address] Dec, IMMUNIZATIONS No Known Immunizations SOCIAL HISTORY Never Assessed REASON FOR VISIT BPP w/ NST PLAN OF CARE VITAL SIGNS MEDICATIONS Unknown Medications RESULTS Name Result Date Reference Range Biophysical Profile () w/ NST 2017-04-11 PROCEDURES No Known procedures INSTRUCTIONS MEDICATIONS ADMINISTERED No Known Medications MEDICAL (GENERAL) HISTORY Type Description Date Medical History Hidradenitis Supprativa Medical History Bipolar Disorder Medical History ADHD Surgical History pilonidal cyst removal tailbone Surgical History 2018 Hospitalization History Dehydration & concussion 07/23/2016 Hospitalization History child 2018
--- OUTSIDE RECORDS SUMMARY | 2017-09-24 22:49 | XMS REPORT ---
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 Active [id number] Problem Anxiety disorder, unspecified F41.9 Active 185642022 Problem Lesion of sciatic nerve, left lower limb G57.02 Active 242029844377476 Problem Abdominal pannus E65 Active 1358129936961 Problem Obesity during in third trimester O99.213 Active 857230075 Problem Post depression F53 Active 41285029 Problem Gestational diabetes mellitus (GDM) in third trimester, gestational diabetes method of control unspecified O24.419 Active 11696833 Problem Lumbago with sciatica, left side M54.42 Active 961706165 Problem Lumbago with sciatica, right side M54.41 Active 286859453 Problem Bipolar disorder, unspecified F31.9 Active 49813993 Problem Hypertriglyceridemia E78.1 Active 808315188 Problem Attention deficit hyperactivity disorder F90.9 Active 959611824 Problem Metabolic syndrome E88.81 Active 040100673 Problem Other chronic pain G89.29 Active 87098204 Problem Obesity affecting in second trimester O99.212 Active 621134686301 Problem Suppurative hidradenitis L73.2 Active 52938198 Problem Gastro-esophageal reflux disease without esophagitis K21.9 Active 023117068 ALLERGIES No Information ENCOUNTERS Encounter Location Date Diagnosis [facility] [address] [facility] [id number] [address] Oct, [place] [id number] [place] [address] 00315- 5212 Jul, Bipolar disorder, unspecified F31.9 [place] [id number] [place] [address] 49446- 1832 Jul, Bipolar disorder, unspecified F31.9 ; Attention deficit hyperactivity disorder F90.9 and BMI 50.0-59.9, adult Z68.43 [place] [id number] [place] [address] 83213- 7720 Jul, Somatic dysfunction of pelvis region M99.05 ; Somatic dysfunction of sacral region M99.04 ; Somatic dysfunction of lumbar region M99.03 ; Lesion of sciatic nerve, left lower limb G57.02 ; Lesion of sciatic nerve, 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 and BMI 50.0-59.9, adult Z68.43 [place] [id number] [place] [address] 82879- 5300 June, [place] [id number] [place] [address] 14971- 2559 June, Bipolar disorder, unspecified F31.9 ; Attention deficit hyperactivity disorder F90.9 ; High risk medication use Z79.899 and BMI 50.0- 59.9, adult Z68.43 [place] [address] [place] [address] 99707- 8350 June, [place] [id number] [place] [address] 39866- 4713 June, Hidradenitis suppurativa L73.2 and BMI 50.0-59.9, adult Z68.43 [place] [address] [place] [address] 84182- 4354 June, Bipolar disorder, unspecified F31.9 and BMI 50.0-59.9, adult Z68.43 [place] [id number] [place] [address] 46714- 2758 May, [place] [id number] [place] [address] 83091- 2598 May, Lumbago with sciatica, left side M54.42 ; care and examination Z39.2 ; Lumbago with sciatica, right side M54.41 ; Other chronic pain G89.29 ; BMI 50.0-59.9, adult Z68.43 ; Abdominal pannus E65 ; Suppurative hidradenitis L73.2 and Post depression F53 [place] [id number] [place] [address] 22792- 8601 Apr, [place] [address] 21935- 0677 Apr, Abdominal pannus E65 and BMI 45.0-49.9, adult Z68.42 [place] [address] 61119- 5652 Apr, Screening for iron deficiency anemia Z13.0 [place] [id number] [place] [address] 55239- 4995 15 Apr, 2017 Bipolar disorder, unspecified F31.9 [place] [address] [place] [address] 70251- 5924 07 Apr, 2017 Obesity during in third trimester O99.213 ; Third trimester Z34.93 ; Gestational diabetes mellitus (GDM) in third trimester controlled on oral hypoglycemic drug O24.415 ; 37 weeks gestation of Z3A.37 and Oligohydramnios in third trimester, single or unspecified fetus O41.03X0 [place] [id number] [place] [address] 79256- 6533 Mar, Third trimester Z34.93 [place] [id number] [place] [address] 58103- 5307 26 Mar, 2017 Gestational diabetes mellitus (GDM) in third trimester controlled on oral hypoglycemic drug O24.415 [place] [address] [place] [address]- 3728 Mar, [place] [id number] [place] [address] 85387- 5656 Mar, Third trimester Z34.93 ; Gestational diabetes mellitus (GDM) in third trimester controlled on oral hypoglycemic drug O24.415 and 35 weeks gestation of Z3A.35 [place] [address] 90645- 8666 15 Mar, 2017 BMI 50.0-59.9, adult Z68.43 and Bipolar disorder, unspecified F31.9 [place] [address] 63594- 8398 13 Mar, 2017 Diet controlled gestational diabetes mellitus (GDM), antepartum O24.410 [place] [id number] [place] [address] 42682- 1854 07 Mar, 2017 33 weeks gestation of Z3A.33 ; Gestational diabetes mellitus (GDM) in third trimester controlled on oral hypoglycemic drug O24.415 ; Third trimester Z34.93 and Obesity affecting in third trimester O99.213 [place] [id number] [place] [address] 08559- 1868 Mar, [place] [id number] [place] [address] 66331- 2598 Feb, Third trimester Z34.93 ; Encounter for immunization Z23 ; Gestational diabetes mellitus (GDM) in third trimester controlled on oral hypoglycemic drug O24.415 ; Obesity during in third trimester O99.213 and 31 weeks gestation of Z3A.31 [place] [id number] [place] [address] 96246- 7348 Feb, [place] [address] 70210- 4500 Feb, Gestational diabetes mellitus (GDM) in third trimester, gestational diabetes method of control unspecified O24.419 [place] [address] 62312- 9276 Feb, [place] [id number] [place] [address] 15521- 7313 Feb, [place] [address] 11694- 1187 Feb, Bipolar disorder, unspecified F31.9 and BMI 50.0-59.9, adult Z68.43 [place] [address] 38662- 0863 10 Feb, 2017 29 weeks gestation of Z3A.29 ; Gestational diabetes mellitus (GDM) in third trimester, gestational diabetes method of control unspecified O24.419 ; Third trimester Z34.93 ; Obesity affecting in third trimester O99.213 and BMI 50.0-59.9, adult Z68.43 [place] [address] 05039- 0041 15 Jan, 2017 Abnormal glucose tolerance test (GTT) R73.02 [facility] [address] [id number] 15 Jan, 2017 Dental examination Z01.[address] 45833- 4220 14 Jan, 2017 Bipolar disorder, unspecified F31.9 [place] [id number] [place] [address] 27355- 4173 12 Jan, 2017 25 weeks gestation of Z3A.25 ; Second trimester Z34.92 ; Gastro-esophageal reflux disease without esophagitis K21.9 ; Diseases of the digestive system complicating , second trimester O99.612 ; Abnormal ultrasonic finding on screening of mother O28.3 and BMI 50.0-59.9, adult Z68.[address] 37345- 4540 05 Jan, 2017 [place] [address] 41155- 4327 Dec, [address] 50034- 0192 Dec, Dental examination Z01.20 [facility] [id number] [place] [address] 41909- 5527 14 Dec, 2016 Second trimester Z34.92 ; 21 weeks gestation of Z3A.21 and Obesity affecting in second trimester O99.212 [facility] [id number] [place] [address] 27413- 1301 Dec, [facility] [id number] [place] [address] 97220- 1640 Dec, Lump of right breast N63.10 ; Abscess of left thigh L02.416 and BMI 45.0-49.9, adult Z68.42 [facility] [id number] [place] [address] [id number] 10 Dec, 2016 Dental examination Z01.20 [facility] [id number] [place] [address] 48859- 7383 08 Dec, 2016 [facility] [id number] [place] [address] 63642- 9506 Dec, Bipolar disorder, unspecified F31.9 [facility] [id number] [place] [address] 43829- 6992 24 Nov, 2016 [facility] [id number] [place] [address] 82111- 4679 Nov, [facility] [id number] [place] [address] 03677- 4558 Nov, 17 weeks gestation of Z3A.17 and Right non- suppurative otitis media H65.91 [facility] [id number] [place] [address] 03848- 3674 Nov, [facility] [id number] [place] [address] 39632- 6346 Nov, [facility] [id number] [place] [address] 05048- 8161 Nov, Bipolar disorder, unspecified F31.9 [facility] [address] [address]- 1041 10 Nov, 2016 16 weeks gestation of Z3A.16 ; Second trimester Z34.92 and Obesity affecting in second trimester O99.212 [facility] [id number] [address] 03 Nov, 2016 Encounter for dental examination Z01.20 [facility] [address] [address]- 4958 13 Oct, 2016 [facility] [address] [place] [address] 34176- 0143 12 Oct, 2016 12 weeks gestation of Z3A.12 ; First trimester Z34.90 and Obesity affecting in first trimester O99.211 [facility] [address], [place] [address]- 4522 Sep, [facility] [address] [address]- 0358 Sep, [facility] [id number] [place] [address] 32194- 7064 Sep, Bipolar disorder, unspecified F31.9 [facility] [address], [place] [address]- 2992 Sep, [facility] [address] [address]- 5850 Sep, [facility] [address] [address]- 3800 Sep, Normal , first Z34.00 [facility] [id number] [place] [address] 10953- 2715 Sep, Normal , first Z34.00 ; 8 weeks gestation of Z3A.08 and Obesity affecting in first trimester O99.211 [facility] [address] [address]- 8320 Sep, Anxiety disorder, unspecified F41.9 [place] [id number] [place] [address] 86442- 1840 Sep, [place] [id number] [place] [address] 19370- 4033 Sep, Encounter for test, result unknown Z32.00 [place] [address] 39532- 8765 Aug, Anxiety disorder, unspecified F41.9 [place] [id number] [place] [address] 20215- 3991 Jul, Suppurative hidradenitis L73.2 ; Metabolic syndrome E88.81 ; BMI 40.0-44.9, adult Z68.41 and High risk sexual behavior Z72.51 [place] [id number] [place] [address] 03195- 5498 Jul, Anxiety disorder, unspecified F41.9 [place] [id number] [place] [address] 33073- 1218 June, Anxiety disorder, unspecified F41.9 ; Attention deficit hyperactivity disorder F90.9 and Bipolar disorder, unspecified F31.9 [place] [id number] [place] [address] 41769- 5434 June, Attention deficit hyperactivity disorder F90.9 [place] [id number] [place] [address] 83236- 0900 May, Attention deficit hyperactivity disorder F90.9 [place] [id number] [place] [address] 73457- 0330 Apr, Attention deficit hyperactivity disorder F90.9 [place] [address] [place] [address] 74866- 6261 14 Mar, 2016 Abscess L02.91 and Screening for STD sexually transmitted disease Z11.3 [place] [id number] [place] [address] 83531- 6512 Mar, Attention deficit hyperactivity disorder F90.9 [place] [address] [address]- 5154 Feb, Attention deficit hyperactivity disorder F90.9 [place] [id number] [place] [address] 43978- 1843 Feb, Attention deficit disorder of adult F98.8 and DMDD ( disruptive mood dysregulation disorder) F34.81 [place] [address] [place] [address] 84329- 6403 Jan, Exposure to sexually transmitted disease (STD) Z20.2 and Metabolic syndrome E88.81 [place] [id number] [place] [address] 95000- 3083 Jan, Possible exposure to STD Z20.2 ; BMI 40.0-44.9, adult Z68.41 ; Metabolic syndrome E88.81 ; Elevated fasting glucose R73.01 and Hypertriglyceridemia E78.1 [place] [id number] [place] [address] 92628- 4430 Jan, Possible exposure to STD Z20.2 ; Lumbago with sciatica, left side M54.42 ; Lumbago with sciatica, right side M54.41 ; BMI 40.0-44.9, adult Z68.41 ; Metabolic syndrome E88.81 ; Elevated fasting glucose R73.01 ; Hypertriglyceridemia E78.1 and Suppurative hidradenitis L73.2 [place] [address] [place] [address] 70645- 0920 Dec, Attention deficit hyperactivity disorder F90.9 [place] [address] [address]- 4193 Dec, [place] [id number] [place] [address] 98248- 4978 Nov, [place] [id number] [place] [address] 09112- 3383 Nov, [place] [address] [place] [address]- 6898 Nov, [place] [id number] [place] [address] 08641- 8628 Nov, [place] [id number] [place] [address] 61428- 0196 30 Oct, 2015 Lumbago with sciatica, left side M54.42 and Other chronic pain G89.29 [place] [address] [place] [address] 62654- 4163 22 Oct, 2015 Lumbago with sciatica, left side M54.42 ; Lumbago with sciatica, right side M54.41 ; Other chronic pain G89.29 and Suppurative hidradenitis L73.2 [place] [address] [place] [address] 10345- 0182 Oct, [place] [id number] [place] [address] 43507- 5637 Sep, [place] [id number] [place] [address] 80413- 0240 Sep, Unprotected sexual intercourse Z72.51 ; Hidradenitis suppurativa L73.2 ; Elevated fasting glucose R73.01 ; BMI 40.0-44.9, adult Z68.41 and Irregular menses N92.6 [place] [address] [address]- 2307 Aug, [place] [id number] [place] [address] 71005- 9687 24 Jul, 2015 Routine health maintenance Z00.00 ; Abscess L02.91 ; H/O hidradenitis suppurativa Z87.2 ; Irregular menses N92.6 ; BMI 40.0-44.9, adult Z68.41 ; Elevated fasting glucose R73.01 and Hypertriglyceridemia E78.1 [place] [address] [address]- 9591 Jul, [facility] [id number] [address] -3611 Jul, Hidradenitis suppurativa L73.2 [facility] [address] [address]- 4376 Jul, Bipolar disorder, unspecified F31.9 ; Anxiety disorder, unspecified F41.9 and Attention deficit hyperactivity disorder F90.9 [facility] [address] [address]- 1376 June, [place] [address] [address]- 8380 June, [place] [id number] [place] [address] 88680- 8577 May, [place] [address] [address]- 9644 Apr, [place] [address] [place] [address] 92186- 4778 Apr, Well woman exam Z01.419 ; BMI 40.0-44.9, adult Z68.41 ; Tobacco use Z72.0 ; Family history of diabetes mellitus Z83.3 ; Hidradenitis suppurativa L73.2 ; Routine screening for STI (sexually transmitted infection) Z11.3 ; Unprotected sexual intercourse Z72.51 and Family history of breast cancer Z80.3 [facility] [address], [place] [address]- 7055 Apr, Bipolar disorder, unspecified F31.9 ; Anxiety disorder, unspecified F41.9 and Attention deficit hyperactivity disorder F90.9 [facility] [address], [place] [address]- 9885 Mar, [facility] [address], [place] [address]- 2678 Feb, [facility] [address], [place] [address]- 2617 Feb, [place] [address] [place] [address] 88919- 3507 Jan, Encounter for test, result negative Z32.02 and BMI 40.0-44.9, adult Z68.41 [place] [id number] [place] [address] 69424- 9932 Jan, Bipolar disorder, unspecified F31.9 ; Anxiety disorder, unspecified F41.9 and Attn-defct hyperactivity disorder, predom inattentive type F90.0 [place] [id number] [place] [address] 32180- 9539 Jan, [place] [address] 34382- 2694 Dec, [place] [id number] [place] [address] 13234- 7902 Dec, Bipolar disorder, unspecified F31.9 ; Attention deficit hyperactivity disorder F90.9 and Anxiety disorder, unspecified F41.9 [place] [id number] [place] [address] 20703- 4525 Nov, Irregular menses N92.6 ; Unprotected sexual intercourse Z72.51 ; Screening for STD sexually transmitted disease Z11.3 ; General counseling and advice for contraceptive management Z30.09 ; Oral contraceptive pill surveillance Z30.41 ; BMI 40.0-44.9, adult Z68.41 and H/O hidradenitis suppurativa Z87.2 [facility] [id number] [place] [address] [id number] Sep, Dental examination V72.2 [place] [id number] [place] [address] 52599- 0453 Sep, Screen for STD (sexually transmitted disease) V74.5 and General counseling on prescription of oral contraceptives V25.01 [place] [id number] [place] [address] 21912- 2669 May, [place] [address] 09563- 7776 May, [facility] [place] [facility] [address] [id number] [place] [address]- 1352 30 Apr, 2014 [facility] [place] [facility] [address] [facility] [id number] [place] [address]- 2387 30 Apr, 2014 [facility] [place] [facility] [address] [facility] [id number] [place] [address]- 4406 Apr, 2014 [facility] [place] [facility] [address] [facility] [id number] [place] [address]- 6263 10 Apr, 2014 [facility] [place] [facility] [address] [facility] [id number] [place] [address]- 0450 Apr, [facility] [place] [facility] [address] [facility] [id number] [place] [address]- 7742 Apr, [facility] [place] [facility] [address] [place] [address]- 2763 Apr, [facility] [place] [facility] [address] [facility] [id number] [place] [address]- 2547 Mar, 2014 [facility] [place] [facility] [id number] [place] [address]- 2373 Mar, 2014 [facility] [place] [facility] [id number] [place] [address]- 4931 Mar, 2014 [facility] [place] [facility] [address] [place] [address]- 8697 Mar, 2014 [facility] [place] [facility] [address] [facility] [id number] [place] [address]- 7267 Mar, 2014 [facility] [place] [facility] [address] [facility] [id number] [place] [address]- 6396 Mar, 2014 [facility] [place] [facility] [address] [facility] [id number] [place] [address]- 9956 Jan, [facility] [place] [facility] [id number] [place] [address]- 2906 Jan, [facility] [place] [facility] [address] [id number] [place] [address]- 8056 Dec, [facility] [place] [facility] [address] [id number] [place] [address]- 5127 Dec, [facility] [place] [facility] [address] [id number] [place] [address]- 2647 Dec, [facility] [place] [facility] [address] [id number] [place] [address]- 5987 Dec, [facility] [place] [facility] [address] [id number] [place] [address]- 0283 Sep, [facility] [place] [facility] [address] [id number] [place] [address]- 9867 Sep, [facility] [place] [facility] [address] [id number] [place] [address]- 6402 Apr, [facility] [place] [facility] [address] [id number] [place] [address]- 2947 Apr, [facility] [place] [facility] [address] [id number] [place] [address]- 7459 Mar, [facility] [place] [facility] [address] [id number] [place] [address]- 7307 Mar, [facility] [place] [facility] [address] [id number] [place] [address]- 3746 Mar, [facility] [place] [facility] [address] [id number] [place] [address]- 3424 Mar, [facility] [place] [facility] [address] [id number] [place] [address]- 0423 Jan, [facility] [place] [facility] [address] [id number] [place] [address]- 5400 Jan, [facility] [place] [facility] [address] [id number] [place] [address]- 9319 Dec, [facility] [place] [facility] [address] [facility] [id number] [place] [address]- 9829 Dec, [facility] [address] [facility] [id number] [place] [address]- 3389 Dec, IMMUNIZATIONS No Known Immunizations SOCIAL HISTORY Never Assessed REASON FOR VISIT PLAN OF CARE VITAL SIGNS MEDICATIONS Unknown [...]
--- OUTSIDE RECORDS SUMMARY | 2017-09-24 22:49 | XMS REPORT ---
Author Author JYOTHI IZQUIERDO [facility] Address [address] [place] [address] Care Team Providers Care Senior Visual Designer Name Role Phone JYOTHI IZQUIERDO Unavailable PROBLEMS Type Condition ICD9-CM Code UHT74-TE Code Onset Dates Condition Status SNOMED Code Problem Obesity affecting in second trimester O99.212 Active 284533264133 Problem BMI 50.0-59.9, adult Z68.43 Active 612627152 Problem Gastro-esophageal reflux disease without esophagitis K21.9 Active 450553719 Problem Post depression F53 Active 58202152 Problem Gestational diabetes mellitus (GDM) in third trimester, gestational diabetes method of control unspecified O24.419 Active 92050083 Problem Obesity during in third trimester O99.213 Active 267366123 Problem Obesity affecting in third trimester O99.213 Active 549445254175 Problem Abdominal pannus E65 Active 0487068492433 Problem Gestational diabetes mellitus (GDM) in third trimester controlled on oral hypoglycemic drug O24.415 Active 52963112 Problem Bipolar disorder, unspecified F31.9 Active 35186055 Problem Hypertriglyceridemia E78.1 Active 659935053 Problem Anxiety disorder, unspecified F41.9 Active 265698582 Problem Lumbago with sciatica, left side M54.42 Active 259888011 Problem Lumbago with sciatica, right side M54.41 Active 447409815 Problem Other chronic pain G89.29 Active 44753983 Problem Attention deficit hyperactivity disorder F90.9 Active 159952571 Problem Suppurative hidradenitis L73.2 Active 22217213 Problem Metabolic syndrome E88.81 Active 038057943 ALLERGIES Substance Reaction Event Type Date Status Bees anaphylaxis Non Drug Allergy Nov, Active ENCOUNTERS Encounter Location Date Diagnosis [facility] [address] [facility] [id number] [address] June, [facility] [id number] [place] [address] 91383- 7888 June, Bipolar disorder, unspecified F31.9 [facility] [id number] [place] [address] 13261- 5012 May, [facility] [id number] [place] [address] 53058- 6794 May, Lumbago with sciatica, left side M54.42 ; care and examination Z39.2 ; Lumbago with sciatica, right side M54.41 ; Other chronic pain G89.29 ; BMI 50.0-59.9, adult Z68.43 ; Abdominal pannus E65 ; Suppurative hidradenitis L73.2 and Post depression F53 [facility] [id number] [place] [address] 13399- 0867 Apr, [facility] [address] 27324- 6229 Apr, Abdominal pannus E65 and BMI 45.0-49.9, adult Z68.42 [facility] [id number] [place] [address] 29034- 7641 Apr, Screening for iron deficiency anemia Z13.0 [facility] [id number] [place] [address] 63864- 3835 Apr, Bipolar disorder, unspecified F31.9 [facility] [id number] [place] [address] 97244- 2612 Apr, Obesity during in third trimester O99.213 ; Third trimester Z34.93 ; Gestational diabetes mellitus (GDM) in third trimester controlled on oral hypoglycemic drug O24.415 ; 37 weeks gestation of Z3A.37 and Oligohydramnios in third trimester, single or unspecified fetus O41.03X0 [facility] [id number] [place] [address] 50923- 5236 Mar, Third trimester Z34.93 [facility] [id number] [place] [address] 65183- 8734 Mar, Gestational diabetes mellitus (GDM) in third trimester controlled on oral hypoglycemic drug O24.415 [facility] [id number] [place] [address] 65133- 5900 Mar, [facility] [place] [address], [place] [address] 8534 Mar, Third trimester Z34.93 ; Gestational diabetes mellitus (GDM) in third trimester controlled on oral hypoglycemic drug O24.415 and 35 weeks gestation of Z3A.35 [facility] [id number] [place] [address] 38888- 3987 15 Mar, 2017 BMI 50.0-59.9, adult Z68.43 and Bipolar disorder, unspecified F31.9 [facility] [address] [place] [address] 95186- 8794 13 Mar, 2017 Diet controlled gestational diabetes mellitus (GDM), antepartum O24.410 [facility] [place] [address] [place] [address] 34480- 3355 07 Mar, 2017 33 weeks gestation of Z3A.33 ; Gestational diabetes mellitus (GDM) in third trimester controlled on oral hypoglycemic drug O24.415 ; Third trimester Z34.93 and Obesity affecting in third trimester O99.213 [facility] [address], [place] [address] 8035 Mar, [facility] [place] [address] [place] [address] 21832- 1084 Feb, Third trimester Z34.93 ; Encounter for immunization Z23 ; Gestational diabetes mellitus (GDM) in third trimester controlled on oral hypoglycemic drug O24.415 ; Obesity during in third trimester O99.213 and 31 weeks gestation of Z3A.31 [facility] [address], [place] [address] 1349 Feb, [facility] [id number] [place] [address] 52545- 2744 Feb, Gestational diabetes mellitus (GDM) in third trimester, gestational diabetes method of control unspecified O24.419 [facility] [id number] [place] [address] 98650- 8462 Feb, [facility] [id number] [place] [address] 07511- 6773 Feb, [facility] [id number] [place] [address] 42903- 8312 Feb, Bipolar disorder, unspecified F31.9 and BMI 50.0-59.9, adult Z68.43 [facility] [id number] [place] [address] 08797- 0238 10 Feb, 2017 29 weeks gestation of Z3A.29 ; Gestational diabetes mellitus (GDM) in third trimester, gestational diabetes method of control unspecified O24.419 ; Third trimester Z34.93 ; Obesity affecting in third trimester O99.213 and BMI 50.0-59.9, adult Z68.43 [facility] [id number] [place] [address] 97189- 5062 15 Jan, 2017 Abnormal glucose tolerance test (GTT) R73.02 [facility] [address] [id number] Jan, 2017 Dental examination Z01.20 [place] [id number] [place] [address] 93790- 0394 14 Jan, 2017 Bipolar disorder, unspecified F31.9 [facility] [id number] [place] [address] 13014- 6047 12 Jan, 2017 25 weeks gestation of Z3A.25 ; Second trimester Z34.92 ; Gastro-esophageal reflux disease without esophagitis K21.9 ; Diseases of the digestive system complicating , second trimester O99.612 ; Abnormal ultrasonic finding on screening of mother O28.3 and BMI 50.0-59.9, adult Z68.43 [facility] [address] 84765- 3071 Jan, [facility] [address] [place] [address] 18001- 1845 Dec, [facility] [id number] [place] [address] 63287- 8968 Dec, Dental examination Z01.20 [facility] [id number] [place] [address] 64994- 9894 14 Dec, 2016 Second trimester Z34.92 ; 21 weeks gestation of Z3A.21 and Obesity affecting in second trimester O99.212 [facility] [id number] [place] [address] 46891- 7119 Dec, [facility] [id number] [place] [address] 13221- 0674 10 Dec, 2016 Lump of right breast N63.10 ; Abscess of left thigh L02.416 and BMI 45.0-49.9, adult Z68.42 [facility] [id number] [place] [address] [id number] 10 Dec, 2016 Dental examination Z01.20 [facility] [id number] [place] [address] 65631- 5775 08 Dec, 2016 [facility] [id number] [place] [address] 77467- 0791 Dec, Bipolar disorder, unspecified F31.9 [facility] [id number] [place] [address] 97869- 0886 Nov, [facility] [id number] [place] [address] 05110- 4375 Nov, [facility] [id number] [place] [address] 39146- 2316 Nov, 17 weeks gestation of Z3A.17 and Right non- suppurative otitis media H65.91 [facility] [id number] [place] [address] 05389- 4168 Nov, [facility] [address] [place] [address]- 3600 11 Nov, 2016 [facility] [address], [place] [address]- 4782 Nov, Bipolar disorder, unspecified F31.9 [facility] [address], [place] [address]- 0958 10 Nov, 2016 16 weeks gestation of Z3A.16 ; Second trimester Z34.92 and Obesity affecting in second trimester O99.212 [facility] [address] [address] 03 Nov, 2016 Encounter for dental examination Z01.20 [facility] [id number] [place] [address] 08596- 1705 13 Oct, 2016 [facility] [address], [place] [address]- 5288 12 Oct, 2016 12 weeks gestation of Z3A.12 ; First trimester Z34.90 and Obesity affecting in first trimester O99.211 [facility] [address], [place] [address]- 5362 Sep, [facility] [address], [place] [address]- 0627 Sep, [facility] [address], [place] [address]- 3851 Sep, Bipolar disorder, unspecified F31.9 [facility] [address], [place] [address]- 0681 Sep, [facility] [address], [place] [address]- 9683 Sep, [facility] [address], [place] [address]- 5170 Sep, Normal , first Z34.00 [facility] [address], [place] [address]- 2839 Sep, Normal , first Z34.00 ; 8 weeks gestation of Z3A.08 and Obesity affecting in first trimester O99.211 [facility] [id number] [place] [address] 15314- 7154 Sep, Anxiety disorder, unspecified F41.9 [facility] [id number] [place] [address] 86624- 5761 Sep, [facility] [address] 76785- 6897 Sep, Encounter for test, result unknown Z32.00 [facility] [id number] [place] [address] 96652- 4473 Aug, Anxiety disorder, unspecified F41.9 [facility] [place] [id number] [place] [address] 92363- 8594 Jul, Suppurative hidradenitis L73.2 ; Metabolic syndrome E88.81 ; BMI 40.0-44.9, adult Z68.41 and High risk sexual behavior Z72.51 [facility] [place] [id number] [place] [address] 20518- 1231 Jul, Anxiety disorder, unspecified F41.9 [facility] [id number] [place] [address] 96297- 9640 June, Anxiety disorder, unspecified F41.9 ; Attention deficit hyperactivity disorder F90.9 and Bipolar disorder, unspecified F31.9 [place] [id number] [place] [address] 73894- 7663 June, Attention deficit hyperactivity disorder F90.9 [facility] [place] [id number] [place] [address] 85371- 3007 May, Attention deficit hyperactivity disorder F90.9 [facility] [place] [id number] [place] [address] 17099- 1376 Apr, Attention deficit hyperactivity disorder F90.9 [facility] [id number] [place] [address] 05348- 5077 Mar, Abscess L02.91 and Screening for STD sexually transmitted disease Z11.3 [facility] [id number] [place] [address] 28180- 0988 03 Mar, 2016 Attention deficit hyperactivity disorder F90.9 [place] [id number] [place] [address] 13225- 6137 Feb, Attention deficit hyperactivity disorder F90.[address] 49711- 9939 Feb, Attention deficit disorder of adult F98.8 and DMDD ( disruptive mood dysregulation disorder) F34.[address] 99875- 3869 Jan, Exposure to sexually transmitted disease (STD) Z20.2 and Metabolic syndrome E88.81 [place] [address] [place] [address] 98369- 4703 Jan, Possible exposure to STD Z20.2 ; BMI 40.0-44.9, adult Z68.41 ; Metabolic syndrome E88.81 ; Elevated fasting glucose R73.01 and Hypertriglyceridemia E78.1 [place] [address] [place] [address] 32177- 3813 Jan, Possible exposure to STD Z20.2 ; Lumbago with sciatica, left side M54.42 ; Lumbago with sciatica, right side M54.41 ; BMI 40.0-44.9, adult Z68.41 ; Metabolic syndrome E88.81 ; Elevated fasting glucose R73.01 ; Hypertriglyceridemia E78.1 and Suppurative hidradenitis L73.2 [facility] [address] [place] [address] 95767- 6191 Dec, Attention deficit hyperactivity disorder F90.9 [place] [address] [place] [address] 82554- 2543 Dec, [place] [address] [place] [address] 50515- 1566 Nov, [place] [address], [place] [address]- 2253 Nov, [facility] [id number] [place] [address] 44231- 7974 Nov, [place] [id number] [place] [address] 94478- 6110 Nov, [place] [id number] [place] [address] 88752- 1320 Oct, Lumbago with sciatica, left side M54.42 and Other chronic pain G89.29 [place] [address] [place] [address] 10136- 0525 Oct, Lumbago with sciatica, left side M54.42 ; Lumbago with sciatica, right side M54.41 ; Other chronic pain G89.29 and Suppurative hidradenitis L73.2 [place] [address] [place] [address] 68035- 7277 Oct, [place] [address] [place] [address] 99709- 3446 Sep, [facility] [id number] [place] [address] 11267- 5312 Sep, Unprotected sexual intercourse Z72.51 ; Hidradenitis suppurativa L73.2 ; Elevated fasting glucose R73.01 ; BMI 40.0-44.9, adult Z68.41 and Irregular menses N92.6 [place] [address] [place] [address] 38185- 6444 Aug, [place] [id number] [place] [address] 02242- 1317 Jul, Routine health maintenance Z00.00 ; Abscess L02.91 ; H/O hidradenitis suppurativa Z87.2 ; Irregular menses N92.6 ; BMI 40.0-44.9, adult Z68.41 ; Elevated fasting glucose R73.01 and Hypertriglyceridemia E78.1 [facility] [address], [place] [address]- 9057 Jul, [facility] [address], [place] [address] -3135 Jul, Hidradenitis suppurativa L73.2 [facility] [address] [place] [address] 26735- 6496 Jul, Bipolar disorder, unspecified F31.9 ; Anxiety disorder, unspecified F41.9 and Attention deficit hyperactivity disorder F90.9 [place] [id number] [place] [address] 35515- 4851 June, [place] [id number] [place] [address] 54269- 8909 June, [facility] [id number] [place] [address] 23775- 1080 May, [facility] [address] [place] [address] 12302- 1670 Apr, [place] [id number] [place] [address] 44200- 0231 Apr, Well woman exam Z01.419 ; BMI 40.0-44.9, adult Z68.41 ; Tobacco use Z72.0 ; Family history of diabetes mellitus Z83.3 ; Hidradenitis suppurativa L73.2 ; Routine screening for STI (sexually transmitted infection) Z11.3 ; Unprotected sexual intercourse Z72.51 and Family history of breast cancer Z80.3 [facility] [address], [place] [address]- 8472 Apr, Bipolar disorder, unspecified F31.9 ; Anxiety disorder, unspecified F41.9 and Attention deficit hyperactivity disorder F90.9 [place] [address], [place] [address]- 9121 Mar, [place] [id number] [place] [address] 13417- 1300 Feb, [place] [address] 46815- 9482 Feb, [place] [address] 73481- 4908 Jan, Encounter for test, result negative Z32.02 and BMI 40.0-44.9, adult Z68.41 [place] [address] 61225- 7283 Jan, Bipolar disorder, unspecified F31.9 ; Anxiety disorder, unspecified F41.9 and Attn-defct hyperactivity disorder, predom inattentive type F90.0 [place] [address] 53613- 7095 Jan, [place] [address] 00647- 1702 Dec, [place] [address] 49372- 0274 Dec, Bipolar disorder, unspecified F31.9 ; Attention deficit hyperactivity disorder F90.9 and Anxiety disorder, unspecified F41.9 [place] [id number] [place] [address] 21351- 7387 Nov, Irregular menses N92.6 ; Unprotected sexual intercourse Z72.51 ; Screening for STD sexually transmitted disease Z11.3 ; General counseling and advice for contraceptive management Z30.09 ; Oral contraceptive pill surveillance Z30.41 ; BMI 40.0-44.9, adult Z68.41 and H/O hidradenitis suppurativa Z87.2 [facility] [address] [id number] Sep, Dental examination V72.2 [place] [id number] [place] [address] 56191- 6790 Sep, Screen for STD (sexually transmitted disease) V74.5 and General counseling on prescription of oral contraceptives V25.01 [facility] [address] [id number] [place] [address]- 0443 14 May, 2014 [facility] [place] [facility] [address] [id number] [place] [address]- 6546 May, [facility] [place] [facility] [address] [facility] [id number] [place] [address]- 5975 30 Apr, 2014 [facility] [place] [facility] [address] [id number] [place] [address]- 8721 30 Apr, 2014 [facility] [place] [facility] [address] [id number] [place] [address]- 5576 Apr, [facility] [place] [facility] [address] [id number] [place] [address]- 3864 Apr, [facility] [place] [facility] [address] [facility] [id number] [place] [address]- 2380 Apr, [facility] [place] [facility] [address] [facility] [id number] [place] [address]- 3265 Apr, [facility] [place] [facility] [address] [facility] [id number] [place] [address]- 2016 Apr, [facility] [place] [facility] [address] [facility] [id number] [place] [address]- 6768 Mar, [facility] [place] [facility] [address] [facility] [id number] [place] [address]- 9280 Mar, [facility] [place] [facility] [address] [facility] [id number], [place] [address]- 9433 Mar, [facility] [place] [facility] [address] [facility] [id number] [place] [address]- 9950 Mar, [facility] [place] [facility] [address] [facility] [id number], [place] [address]- 5582 Mar, [facility] [place] [facility] [address] [facility] [id number] [place] [address]- 8514 Mar, [facility] [place] [facility] [address] [facility] [id number] [place] [address]- 8771 Jan, [facility] [place] [facility] [address] [id number] [place] [address]- 8066 Jan, [facility] [place] [facility] [address] [id number] [place]- 4350 Dec, [facility] [place] [facility] [address] [id number] [place] [address]- 0357 Dec, [facility] [place] [facility] [address] [id number] [place] [address]- 5995 Dec, [facility] [place] [facility] [address] [id number] [place] 8078 Dec, [facility] [place] [facility] [address] [id number] [place] [address]- 3921 Sep, [facility] [place] [facility] [address] [id number] [place] [address]- 9663 Sep, [facility] [place] [facility] [address] [id number] [place] [address]- 7901 Apr, [facility] [place] [facility] [address] [id number] [place] [address]- 8435 Apr, [facility] [place] [facility] [address] [facility] [id number] [place] [address]- 9099 Mar, [facility] [place] [facility] [address] [id number] [place] [address]- 6407 Mar, [facility] [place] [facility] [address] [facility] [id number] [place] [address]- 4520 Mar, [facility] [place] [facility] [address] [id number] [place] [address]- 7507 Mar, [facility] [place] [facility] [address] [facility] [id number] [place] 6941 Jan, [facility] [place] [facility] [address] [id number] [place] [address]- 4810 Jan, [facility] [address] [facility] [id number] [place] [address]- 6595 Dec, [facility] [address] [facility] [id number] [place] [address]- 5199 Dec, [facility] [address] [facility] [id number] [place] [address]- 0675 Dec, IMMUNIZATIONS No Known Immunizations SOCIAL HISTORY Never Assessed REASON FOR VISIT prophy PLAN OF CARE Activity Details Follow Up MARIA G Reason:SRP VITAL SIGNS Heart Rate 100 bpm 2016-11-15 Blood pressure systolic 106 mmHg 2016-11-15 Blood pressure diastolic 66 mmHg 2016-11-15 MEDICATIONS Medication Instructions Dosage Frequency Start Date End Date Duration Status Tums Active Vitamin 27-0.8 MG Active RESULTS No Results PROCEDURES Procedure Date Ordered Result Body Site COMP ORAL EVALUATION - NEW/EST PT Nov 15, 2016 INTRAORL-PERIAPICAL 1 FILM 08184 Nov 15, 2016 PANORAMIC FILM SEE ALSO CODE 95081 Nov 15, 2016 BITEWINGS - FOUR FILMS Nov 15, 2016 Full mouth debridement Nov 15, 2016 INTRAORL-PERIAPICAL EA ADD FILM Nov 15, 2016 INTRAORL-PERIAPICAL EA ADD FILM Nov 15, 2016 INTRAORL-PERIAPICAL EA ADD FILM Nov 15, 2016 INTRAORL-PERIAPICAL EA ADD FILM Nov 15, 2016 INSTRUCTIONS MEDICATIONS ADMINISTERED No Known Medications MEDICAL (GENERAL) HISTORY Type Description Date Medical History Hidradenitis Supprativa Medical History Bipolar Disorder Medical History ADHD Medical History Due May 14, 2017 Surgical History pilonidal cyst removal tailbone Surgical History 2018 Hospitalization History Dehydration & concussion 07/23/2016
--- OUTSIDE RECORDS SUMMARY | 2017-09-24 22:50 | XMS REPORT ---
Author Author EVERARDO HUNT [facility] Address [address] [place] [address] Care Team Providers Care Research Worker Encyclopedia Name Role Phone EVERARDO HUNT Unavailable PROBLEMS Type Condition ICD9-CM Code IUG56-IG Code Onset Dates Condition Status SNOMED Code Problem Obesity affecting in second trimester O99.212 Active 988356963182 Problem BMI 50.0-59.9, adult Z68.43 Active 714606216 Problem Gastro-esophageal reflux disease without esophagitis K21.9 Active 927918302 Problem Post depression F53 Active 66387225 Problem Gestational diabetes mellitus (GDM) in third trimester, gestational diabetes method of control unspecified O24.419 Active 65048684 Problem Obesity during in third trimester O99.213 Active 774463287 Problem Obesity affecting in third trimester O99.213 Active 191619193070 Problem Abdominal pannus E65 Active 8500767163270 Problem Gestational diabetes mellitus (GDM) in third trimester controlled on oral hypoglycemic drug O24.415 Active 19292039 Problem Bipolar disorder, unspecified F31.9 Active 04209607 Problem Hypertriglyceridemia E78.1 Active 999692570 Problem Anxiety disorder, unspecified F41.9 Active 404106280 Problem Lumbago with sciatica, left side M54.42 Active 161656567 Problem Lumbago with sciatica, right side M54.41 Active 242838316 Problem Other chronic pain G89.29 Active 73002887 Problem Attention deficit hyperactivity disorder F90.9 Active 377172330 Problem Suppurative hidradenitis L73.2 Active 74743755 Problem Metabolic syndrome E88.81 Active 745697265 ALLERGIES No Information ENCOUNTERS Encounter Location Date Diagnosis [facility] [address] [facility] [id number] [address] May, [facility] [address] [id number] [address] May, Lumbago with sciatica, left side M54.42 ; care and examination Z39.2 ; Lumbago with sciatica, right side M54.41 ; Other chronic pain G89.29 ; BMI 50.0-59.9, adult Z68.43 ; Abdominal pannus E65 ; Suppurative hidradenitis L73.2 and Post depression F53 [place] [id number] [place] [address] 53202- 7751 Apr, [address] [id number] [place] [address] 80831- 0687 Apr, Abdominal pannus E65 and BMI 45.0-49.9, adult Z68.42 [address] [id number] [place] [address] 26605- 7963 Apr, Screening for iron deficiency anemia Z13.0 [place] [id number] [place] [address] 35085- 2344 Apr, Bipolar disorder, unspecified F31.9 [place] [id number] [place] [address] 53155- 0822 Apr, Obesity during in third trimester O99.213 ; Third trimester Z34.93 ; Gestational diabetes mellitus (GDM) in third trimester controlled on oral hypoglycemic drug O24.415 ; 37 weeks gestation of Z3A.37 and Oligohydramnios in third trimester, single or unspecified fetus O41.03X0 [place] [address] [place] [address] 38642- 2497 Mar, Third trimester Z34.93 [place] [id number] [place] [address] 08426- 5932 Mar, Gestational diabetes mellitus (GDM) in third trimester controlled on oral hypoglycemic drug O24.415 [place] [id number] [place] [address] 01678- 3119 Mar, [place] [id number] [place] [address] 89804- 1278 22 Mar, 2017 Third trimester Z34.93 ; Gestational diabetes mellitus (GDM) in third trimester controlled on oral hypoglycemic drug O24.415 and 35 weeks gestation of Z3A.35 [place] [id number] [place] [address] 66799- 8277 15 Mar, 2017 BMI 50.0-59.9, adult Z68.43 and Bipolar disorder, unspecified F31.9 [place] [id number] [place] [address] 66559- 3137 13 Mar, 2017 Diet controlled gestational diabetes mellitus (GDM), antepartum O24.410 [place] [address] 14814- 2404 07 Mar, 2017 33 weeks gestation of Z3A.33 ; Gestational diabetes mellitus (GDM) in third trimester controlled on oral hypoglycemic drug O24.415 ; Third trimester Z34.93 and Obesity affecting in third trimester O99.213 [place] [id number] [place] [address] 18103- 1812 Mar, [place] [id number] [place] [address] 21396- 3409 Feb, Third trimester Z34.93 ; Encounter for immunization Z23 ; Gestational diabetes mellitus (GDM) in third trimester controlled on oral hypoglycemic drug O24.415 ; Obesity during in third trimester O99.213 and 31 weeks gestation of Z3A.31 [place] [id number] [place] [address] 11066- 8327 Feb, [place] [id number] [place] [address] 53125- 1514 Feb, Gestational diabetes mellitus (GDM) in third trimester, gestational diabetes method of control unspecified O24.419 [place] [id number] [place] [address] 34960- 4181 Feb, [place] [id number] [place] [address] 96780- 9995 Feb, [place] [address] [place] [address] 79272- 7737 Feb, Bipolar disorder, unspecified F31.9 and BMI 50.0-59.9, adult Z68.43 [place] [address] [place] [address] 14081- 1047 10 Feb, 2017 29 weeks gestation of Z3A.29 ; Gestational diabetes mellitus (GDM) in third trimester, gestational diabetes method of control unspecified O24.419 ; Third trimester Z34.93 ; Obesity affecting in third trimester O99.213 and BMI 50.0-59.9, adult Z68.43 [place] [id number] [place] [address] 84781- 6203 Jan, Abnormal glucose tolerance test (GTT) R73.02 [facility] [id number] [place] [address] [id number] Jan, Dental examination Z01.20 [place] [id number] [place] [address] 97177- 6218 14 Jan, 2017 Bipolar disorder, unspecified F31.9 [place] [id number] [place] [address] 25645- 9257 12 Jan, 2017 25 weeks gestation of Z3A.25 ; Second trimester Z34.92 ; Gastro-esophageal reflux disease without esophagitis K21.9 ; Diseases of the digestive system complicating , second trimester O99.612 ; Abnormal ultrasonic finding on screening of mother O28.3 and BMI 50.0-59.9, adult Z68.43 [place] [address] [place] [address] 74927- 9616 Jan, [place] [id number] [place] [address] 25730- 6701 Dec, [place] [id number] [place] [address] 31115- 8211 Dec, Dental examination Z01.20 [place] [address] [place] [address] 0992 14 Dec, 2016 Second trimester Z34.92 ; 21 weeks gestation of Z3A.21 and Obesity affecting in second trimester O99.212 [facility] [id number] [place] [address] 70087- 0869 13 Dec, 2016 [facility] [id number] [place] [address] 61126- 8231 10 Dec, 2016 Lump of right breast N63.10 ; Abscess of left thigh L02.416 and BMI 45.0-49.9, adult Z68.42 [facility] [id number] [place] [address] [id number] 10 Dec, 2016 Dental examination Z01.20 [facility] [id number] [place] [address] 29332- 5092 08 Dec, 2016 [facility] [address] 91380- 1527 07 Dec, 2016 Bipolar disorder, unspecified F31.9 [facility] [id number] [place] [address] 81224- 6944 Nov, [facility] [id number] [place] [address] 26281- 3445 23 Nov, 2016 [facility] [id number] [place] [address] 60713- 5505 Nov, 17 weeks gestation of Z3A.17 and Right non- suppurative otitis media H65.91 [facility] [id number] [place] [address] 59653- 5556 16 Nov, 2016 [facility] [id number] [place] [address] 73997- 7697 Nov, [facility] [id number] [place] [address] 59880- 7904 Nov, Bipolar disorder, unspecified F31.9 [facility] [id number] [place] [address] 68367- 7538 Nov, 16 weeks gestation of Z3A.16 ; Second trimester Z34.92 and Obesity affecting in second trimester O99.212 [facility] [id number] [id number] 03 Nov, 2016 Encounter for dental examination Z01.20 [facility] [address], [place] [address]- 8907 13 Oct, 2016 [facility] [id number] [place] [address] 76051- 1141 12 Oct, 2016 12 weeks gestation of Z3A.12 ; First trimester Z34.90 and Obesity affecting in first trimester O99.211 [facility] [address] [place] [address] 19795- 8564 Sep, [facility] [id number] [place] [address] 39526- 9942 Sep, [facility] [id number] [place] [address] 44063- 9220 Sep, Bipolar disorder, unspecified F31.9 [facility] [id number] [place] [address] 27467- 9543 Sep, [facility] [id number] [place] [address] 04068- 4391 Sep, [facility] [address] [place] [address] 66299- 8173 Sep, Normal , first Z34.00 [facility] [address] [place] [address] 27334- 6760 15 Sep, 2016 Normal , first Z34.00 ; 8 weeks gestation of Z3A.08 and Obesity affecting in first trimester O99.211 [facility] [address] [address]- 3172 10 Sep, 2016 Anxiety disorder, unspecified F41.9 [facility] [address] [place] [address] 80857- 7866 Sep, [place] [id number] [place] [address] 18744- 4149 Sep, Encounter for test, result unknown Z32.00 [place] [id number] [place] [address] 48704- 9373 Aug, Anxiety disorder, unspecified F41.9 [place] [address] 81358- 2750 Jul, Suppurative hidradenitis L73.2 ; Metabolic syndrome E88.81 ; BMI 40.0-44.9, adult Z68.41 and High risk sexual behavior Z72.51 [place] [address] 78942- 7560 Jul, Anxiety disorder, unspecified F41.9 [place] [address] 16530- 5075 June, Anxiety disorder, unspecified F41.9 ; Attention deficit hyperactivity disorder F90.9 and Bipolar disorder, unspecified F31.9 [place] [id number] [place] [address] 69259- 5985 June, Attention deficit hyperactivity disorder F90.9 [place] [id number] [place] [address] 44132- 6355 May, Attention deficit hyperactivity disorder F90.9 [place] [id number] [place] [address] 74831- 8249 Apr, Attention deficit hyperactivity disorder F90.9 [place] [id number] [place] [address] 33912- 8566 14 Mar, 2016 Abscess L02.91 and Screening for STD sexually transmitted disease Z11.3 [place] [id number] [place] [address] 99592- 1817 Mar, Attention deficit hyperactivity disorder F90.9 [place] [address] 58639- 1746 Feb, Attention deficit hyperactivity disorder F90.9 [facility] [address] [place] [address] 75625- 4855 Feb, Attention deficit disorder of adult F98.8 and DMDD ( disruptive mood dysregulation disorder) F34.81 [facility] [address] [address]- 4816 Jan, Exposure to sexually transmitted disease (STD) Z20.2 and Metabolic syndrome E88.81 [facility] [id number] [place] [address] 24258- 8350 Jan, Possible exposure to STD Z20.2 ; BMI 40.0-44.9, adult Z68.41 ; Metabolic syndrome E88.81 ; Elevated fasting glucose R73.01 and Hypertriglyceridemia E78.1 [place] [address] [place] [address] 62314- 3509 Jan, Possible exposure to STD Z20.2 ; Lumbago with sciatica, left side M54.42 ; Lumbago with sciatica, right side M54.41 ; BMI 40.0-44.9, adult Z68.41 ; Metabolic syndrome E88.81 ; Elevated fasting glucose R73.01 ; Hypertriglyceridemia E78.1 and Suppurative hidradenitis L73.2 [place] [address] [place] [address] 14831- 6030 Dec, Attention deficit hyperactivity disorder F90.9 [facility] [address] [place] [address] 52214- 8020 Dec, [facility] [id number] [place] [address] 28776- 3902 Nov, [place] [id number] [place] [address] 17095- 0415 Nov, [place] [address] [place] [address] 99909- 7351 Nov, [place] [id number] [place] [address] 64270- 9164 Nov, [place] [id number] [place] [address] 55965- 8725 Oct, Lumbago with sciatica, left side M54.42 and Other chronic pain G89.29 [place] [id number] [place] [address] 26555- 2886 Oct, Lumbago with sciatica, left side M54.42 ; Lumbago with sciatica, right side M54.41 ; Other chronic pain G89.29 and Suppurative hidradenitis L73.2 [place] [address] 27616- 5584 Oct, [place] [id number] [place] [address] 61373- 6315 Sep, [place] [address] 02057- 2919 Sep, Unprotected sexual intercourse Z72.51 ; Hidradenitis suppurativa L73.2 ; Elevated fasting glucose R73.01 ; BMI 40.0-44.9, adult Z68.41 and Irregular menses N92.6 [place] [id number] [place] [address] 48106- 4160 Aug, [place] [id number] [place] [address] 89874- 6039 Jul, Routine health maintenance Z00.00 ; Abscess L02.91 ; H/O hidradenitis suppurativa Z87.2 ; Irregular menses N92.6 ; BMI 40.0-44.9, adult Z68.41 ; Elevated fasting glucose R73.01 and Hypertriglyceridemia E78.1 [place] [id number] [place] [address] 07185- 1705 Jul, [facility] [id number] [place] [address] 50259 -2241 Jul, Hidradenitis suppurativa L73.2 [place] [address] [address]- 8155 Jul, Bipolar disorder, unspecified F31.9 ; Anxiety disorder, unspecified F41.9 and Attention deficit hyperactivity disorder F90.9 [place] [address], [place] [address]- 1234 June, [place] [id number] [place] [address] 44915- 7541 June, [place] [address] [place] [address] 47560- 5940 May, [place] [id number] [place] [address] 06378- 5871 Apr, [place] [address] [place] [address] 11298- 3073 Apr, Well woman exam Z01.419 ; BMI 40.0-44.9, adult Z68.41 ; Tobacco use Z72.0 ; Family history of diabetes mellitus Z83.3 ; Hidradenitis suppurativa L73.2 ; Routine screening for STI (sexually transmitted infection) Z11.3 ; Unprotected sexual intercourse Z72.51 and Family history of breast cancer Z80.3 [place] [address], [place] [address]- 9593 Apr, Bipolar disorder, unspecified F31.9 ; Anxiety disorder, unspecified F41.9 and Attention deficit hyperactivity disorder F90.9 [place] [address], [place] [address]- 7740 Mar, [place] [address], [place] [address]- 3686 Feb, [place] [address], [place] [address]- 7097 Feb, [place] [address], [place] [address]- 4851 Jan, Encounter for test, result negative Z32.02 and BMI 40.0-44.9, adult Z68.41 [place] [id number] [place] [address] 16096- 2583 Jan, Bipolar disorder, unspecified F31.9 ; Anxiety disorder, unspecified F41.9 and Attn-defct hyperactivity disorder, predom inattentive type F90.0 [place] [address] 92243- 8074 Jan, [place] [address] 01385- 9349 Dec, [address] 72345- 3493 Dec, Bipolar disorder, unspecified F31.9 ; Attention deficit hyperactivity disorder F90.9 and Anxiety disorder, unspecified F41.[address] 16395- 6141 Nov, Irregular menses N92.6 ; Unprotected sexual intercourse Z72.51 ; Screening for STD sexually transmitted disease Z11.3 ; General counseling and advice for contraceptive management Z30.09 ; Oral contraceptive pill surveillance Z30.41 ; BMI 40.0-44.9, adult Z68.41 and H/O hidradenitis suppurativa Z87.2 [facility] [id number] [place] [address] [id number] Sep, Dental examination V72.[address] 78729- 3130 Sep, Screen for STD (sexually transmitted disease) V74.5 and General counseling on prescription of oral contraceptives V25.[address] 92691- 2841 May, [place] [address] 41523- 6625 May, [place] [address] 81097- 8878 30 Apr, 2014 [facility] [place] [facility] [address] [id number] [place] [address]- 2848 30 Apr, 2014 [facility] [place] [facility] [address] [id number] [place] [address]- 6790 Apr, 2014 [facility] [place] [facility] [address] [facility] [id number] [place] [address]- 8261 Apr, 2014 [facility] [place] [facility] [address] [facility] [id number] [place] [address]- 0647 Apr, 2014 [facility] [place] [facility] [address] [id number] [place] [address]- 4921 Apr, [facility] [place] [facility] [address] [facility] [id number] [place] [address]- 6961 Apr, [facility] [place] [facility] [address] [facility] [id number] [place] [address]- 5865 Mar, [facility] [place] [facility] [address] [facility] [id number] [place] [address]- 8400 Mar, 2014 [facility] [place] [facility] [address] [facility] [id number] [place] [address]- 2840 Mar, 2014 [facility] [place] [facility] [address] [facility] [id number] [place] [address]- 4916 Mar, 2014 [facility] [place] [facility] [address] [facility] [id number] [place] [address]- 4179 Mar, 2014 [facility] [place] [facility] [address] [facility] [id number], [place] [address]- 6423 Mar, 2014 [facility] [place] [facility] [address] [facility] [id number] [place] [address]- 1145 Jan, [facility] [place] [facility] [address] [facility] [id number] [place] 6198 Jan, [facility] [place] [facility] [address] [facility] [id number] 4015 Dec, [facility] [place] [facility] [address] [id number] [place] [address]- 6813 Dec, [facility] [place] [facility] [address] [id number] [place] [address]- 4875 Dec, [facility] [place] [facility] [address] [id number] [place] [address]- 8730 Dec, [facility] [place] [facility] [address] [id number] [place] [address]- 0969 Sep, [facility] [place] [facility] [address] [id number] [place] [address]- 8928 Sep, [facility] [place] [facility] [address] [id number] [place] [address]- 6099 Apr, [facility] [place] [facility] [address] [id number] [place] [address]- 9490 Apr, [facility] [place] [facility] [address] [id number] [place] [address]- 5497 Mar, [facility] [place] [facility] [address] [id number] [place] [address]- 4844 Mar, [facility] [place] [facility] [address] [id number] [place] [address]- 9966 Mar, [facility] [place] [facility] [address] [id number] [place] [address]- 1145 Mar, [facility] [place] [facility] [address] [id number] [place] [address]- 2734 Jan, [facility] [place] [facility] [address] [id number] [place] [address]- 0497 Jan, [facility] [place] [facility] [address] [id number] [place] [address]- 2006 Dec, [facility] [place] [facility] [address] [id number] [place] [address]- 2628 Dec, [facility] [place] [facility] [address] [id number] [place] [address] 0923 Dec, IMMUNIZATIONS No Known Immunizations SOCIAL HISTORY [...]
--- OUTSIDE RECORDS SUMMARY | 2017-09-24 22:50 | XMS REPORT ---
Author Author TIFFANY HYLTON [facility] Address [address] [place] [address] Care Team Providers Care Cafeteria Assistant Name Role Phone CONCETTA TIFFANY Unavailable PROBLEMS Type Condition ICD9-CM Code MLE12-XX Code Onset Dates Condition Status SNOMED Code Problem Obesity affecting in second trimester O99.212 Active 924638814394 Problem BMI 50.0-59.9, adult Z68.43 Active 787674825 Problem Gastro-esophageal reflux disease without esophagitis K21.9 Active 024399279 Problem Post depression F53 Active 98081493 Problem Gestational diabetes mellitus (GDM) in third trimester, gestational diabetes method of control unspecified O24.419 Active 88902408 Problem Obesity during in third trimester O99.213 Active 697931991 Problem Obesity affecting in third trimester O99.213 Active 470304397416 Problem Abdominal pannus E65 Active 1354456119900 Problem Gestational diabetes mellitus (GDM) in third trimester controlled on oral hypoglycemic drug O24.415 Active 53308633 Problem Bipolar disorder, unspecified F31.9 Active 74744351 Problem Hypertriglyceridemia E78.1 Active 100587631 Problem Anxiety disorder, unspecified F41.9 Active 290190978 Problem Lumbago with sciatica, left side M54.42 Active 338601860 Problem Lumbago with sciatica, right side M54.41 Active 185294085 Problem Other chronic pain G89.29 Active 48713771 Problem Attention deficit hyperactivity disorder F90.9 Active 584344922 Problem Suppurative hidradenitis L73.2 Active 02465355 Problem Metabolic syndrome E88.81 Active 505434531 ALLERGIES Substance Reaction Event Type Date Status Bees anaphylaxis Non Drug Allergy Jan, Active ENCOUNTERS Encounter Location Date Diagnosis [facility] [address] [facility] [id number] [address] Jul, [facility] [address] [address] June, [facility] [id number] [place] [address] 90324- 9991 June, Bipolar disorder, unspecified F31.9 ; Attention deficit hyperactivity disorder F90.9 ; High risk medication use Z79.899 and BMI 50.0- 59.9, adult Z68.43 [facility] [id number] [place] [address] 27636- 6381 June, [facility] [id number] [place] [address] 30859- 3875 June, Hidradenitis suppurativa L73.2 and BMI 50.0-59.9, adult Z68.43 [facility] [id number] [place] [address] 63498- 4796 June, Bipolar disorder, unspecified F31.9 and BMI 50.0-59.9, adult Z68.43 [facility] [id number] [place] [address] 38411- 3759 May, [facility] [id number] [place] [address] 83917- 4112 May, Lumbago with sciatica, left side M54.42 ; care and examination Z39.2 ; Lumbago with sciatica, right side M54.41 ; Other chronic pain G89.29 ; BMI 50.0-59.9, adult Z68.43 ; Abdominal pannus E65 ; Suppurative hidradenitis L73.2 and Post depression F53 [place] [id number] [place] [address] 13739- 8302 Apr, [facility] [id number] [place] [address] 25624- 1777 Apr, Abdominal pannus E65 and BMI 45.0-49.9, adult Z68.42 [facility] [id number] [place] [address] 56632- 9027 Apr, Screening for iron deficiency anemia Z13.0 [facility] [address] [place] [address] 19233- 2997 Apr, Bipolar disorder, unspecified F31.9 [facility] [id number] [place] [address] 69904- 8677 07 Apr, 2017 Obesity during in third trimester O99.213 ; Third trimester Z34.93 ; Gestational diabetes mellitus (GDM) in third trimester controlled on oral hypoglycemic drug O24.415 ; 37 weeks gestation of Z3A.37 and Oligohydramnios in third trimester, single or unspecified fetus O41.03X0 [facility] [id number] [place] [address] 99970- 2158 28 Mar, 2017 Third trimester Z34.93 [facility] [id number] [place] [address] 11289- 4884 26 Mar, 2017 Gestational diabetes mellitus (GDM) in third trimester controlled on oral hypoglycemic drug O24.415 [facility] [id number] [place] [address] 16783- 9787 Mar, [facility] [id number] [place] [address] 05797- 1719 Mar, Third trimester Z34.93 ; Gestational diabetes mellitus (GDM) in third trimester controlled on oral hypoglycemic drug O24.415 and 35 weeks gestation of Z3A.35 [facility] [id number] [place] [address] 25219- 3414 15 Mar, 2017 BMI 50.0-59.9, adult Z68.43 and Bipolar disorder, unspecified F31.9 [facility] [id number] [place] [address] 09633- 5850 13 Mar, 2017 Diet controlled gestational diabetes mellitus (GDM), antepartum O24.410 [facility] [id number] [place] [address] 10535- 4720 07 Mar, 2017 33 weeks gestation of Z3A.33 ; Gestational diabetes mellitus (GDM) in third trimester controlled on oral hypoglycemic drug O24.415 ; Third trimester Z34.93 and Obesity affecting in third trimester O99.213 [facility] [place] [address] [place] [address] 36223- 7924 Mar, [facility] [address] [place] [address] 62313- 4637 Feb, Third trimester Z34.93 ; Encounter for immunization Z23 ; Gestational diabetes mellitus (GDM) in third trimester controlled on oral hypoglycemic drug O24.415 ; Obesity during in third trimester O99.213 and 31 weeks gestation of Z3A.31 [facility] [id number] [place] [address] 71648- 6120 Feb, [facility] [id number] [place] [address] 54876- 4141 Feb, Gestational diabetes mellitus (GDM) in third trimester, gestational diabetes method of control unspecified O24.419 [facility] [address] [place] [address] 89105- 3482 Feb, [facility] [id number] [place] [address] 05647- 1520 Feb, [facility] [address] [place] [address] 69020- 7461 Feb, Bipolar disorder, unspecified F31.9 and BMI 50.0-59.9, adult Z68.43 [facility] [address] [place] [address] 43996- 2991 10 Feb, 2017 29 weeks gestation of Z3A.29 ; Gestational diabetes mellitus (GDM) in third trimester, gestational diabetes method of control unspecified O24.419 ; Third trimester Z34.93 ; Obesity affecting in third trimester O99.213 and BMI 50.0-59.9, adult Z68.43 [facility] [address] [address] Jan, Abnormal glucose tolerance test (GTT) R73.02 [facility] [id number] [place] [address] [id number] 15 Jan, 2017 Dental examination Z01.20 [facility] [address] 56654- 8506 14 Jan, 2017 Bipolar disorder, unspecified F31.9 [facility] [id number] [place] [address] 75279- 2481 12 Jan, 2017 25 weeks gestation of Z3A.25 ; Second trimester Z34.92 ; Gastro-esophageal reflux disease without esophagitis K21.9 ; Diseases of the digestive system complicating , second trimester O99.612 ; Abnormal ultrasonic finding on screening of mother O28.3 and BMI 50.0-59.9, adult Z68.43 [facility] [address] 43342- 7408 05 Jan, 2017 [facility] [address] 86134- 6163 30 Dec, 2016 [facility] [address] 78033- 7701 14 Dec, 2016 Dental examination Z01.20 [facility] [address] 68755- 9274 14 Dec, 2016 Second trimester Z34.92 ; 21 weeks gestation of Z3A.21 and Obesity affecting in second trimester O99.212 [facility] [id number] [place] [address] 87383- 7074 13 Dec, 2016 [facility] [address] 51477- 6165 10 Dec, 2016 Lump of right breast N63.10 ; Abscess of left thigh L02.416 and BMI 45.0-49.9, adult Z68.42 [facility] [id number] [place] [address] [id number] 10 Dec, 2016 Dental examination Z01.20 [facility] [address] 35076- 0966 Dec, [facility] [id number] [place] [address] 59914- 0430 Dec, Bipolar disorder, unspecified F31.9 [facility] [address], [place] [address] 8042 Nov, [facility] [id number] [place] [address] 64475- 4717 Nov, [facility] [id number] [place] [address] 50543- 4740 Nov, 17 weeks gestation of Z3A.17 and Right non- suppurative otitis media H65.91 [facility] [id number] [place] [address] 81862- 6282 Nov, [facility] [id number] [place] [address] 57283- 8658 Nov, [facility] [id number] [place] [address] 02985- 0490 Nov, Bipolar disorder, unspecified F31.9 [facility] [id number] [place] [address] 32378- 6008 10 Nov, 2016 16 weeks gestation of Z3A.16 ; Second trimester Z34.92 and Obesity affecting in second trimester O99.212 [facility] [address] [id number] Nov, Encounter for dental examination Z01.20 [facility] [address], [place] [address]- 0351 Oct, [facility] [id number] [place] [address] 63272- 4273 Oct, 12 weeks gestation of Z3A.12 ; First trimester Z34.90 and Obesity affecting in first trimester O99.211 [facility] [address] [place] [address] 44516- 0359 Sep, [facility] [address] [place] [address] 44179- 7878 Sep, [facility] [id number] [place] [address] 56717- 5520 Sep, Bipolar disorder, unspecified F31.9 [facility] [id number] [place] [address] 81293- 3199 Sep, [facility] [id number] [place] [address] 87248- 1638 Sep, [facility] [id number] [place] [address] 00499- 6090 Sep, Normal , first Z34.00 [facility] [id number] [place] [address] 39572- 3261 Sep, Normal , first Z34.00 ; 8 weeks gestation of Z3A.08 and Obesity affecting in first trimester O99.211 [facility] [id number] [place] [address] 44522- 8623 Sep, Anxiety disorder, unspecified F41.9 [facility] [id number] [place] [address] 91500- 4383 Sep, [facility] [id number] [place] [address] 50813- 9411 Sep, Encounter for test, result unknown Z32.00 [facility] [id number] [place] [address] 32760- 6263 Aug, Anxiety disorder, unspecified F41.9 [facility] [id number] [place] [address] 47217- 5088 Jul, Suppurative hidradenitis L73.2 ; Metabolic syndrome E88.81 ; BMI 40.0-44.9, adult Z68.41 and High risk sexual behavior Z72.51 [facility] [id number] [place] [address] 83938- 6287 Jul, Anxiety disorder, unspecified F41.9 [facility] [id number] [place] [address] 37365- 1863 June, Anxiety disorder, unspecified F41.9 ; Attention deficit hyperactivity disorder F90.9 and Bipolar disorder, unspecified F31.9 [facility] [id number] [place] [address] 43428- 3326 June, Attention deficit hyperactivity disorder F90.9 [facility] [id number] [place] [address] 17778- 5842 May, Attention deficit hyperactivity disorder F90.9 [facility] [address] 80234- 6890 Apr, Attention deficit hyperactivity disorder F90.9 [facility] [id number] [place] [address] 06566- 9926 14 Mar, 2016 Abscess L02.91 and Screening for STD sexually transmitted disease Z11.3 [facility] [id number] [place] [address] 28237- 3217 Mar, Attention deficit hyperactivity disorder F90.9 [facility] [id number] [place] [address] 64831- 6138 Feb, Attention deficit hyperactivity disorder F90.9 [facility] [id number] [place] [address] 50459- 8224 Feb, Attention deficit disorder of adult F98.8 and DMDD ( disruptive mood dysregulation disorder) F34.81 [facility] [id number] [place] [address] 08878- 5865 Jan, Exposure to sexually transmitted disease (STD) Z20.2 and Metabolic syndrome E88.81 [facility] [id number] [place] [address] 31642- 9777 Jan, Possible exposure to STD Z20.2 ; BMI 40.0-44.9, adult Z68.41 ; Metabolic syndrome E88.81 ; Elevated fasting glucose R73.01 and Hypertriglyceridemia E78.1 [facility] [id number] [place] [address] 12681- 3069 Jan, Possible exposure to STD Z20.2 ; Lumbago with sciatica, left side M54.42 ; Lumbago with sciatica, right side M54.41 ; BMI 40.0-44.9, adult Z68.41 ; Metabolic syndrome E88.81 ; Elevated fasting glucose R73.01 ; Hypertriglyceridemia E78.1 and Suppurative hidradenitis L73.2 [facility] [id number] [place] [address] 24332- 6866 Dec, Attention deficit hyperactivity disorder F90.9 [facility] [address] 41416- 3696 Dec, [facility] [id number] [place] [address] 40201- 9095 Nov, [facility] [id number] [place] [address] 99620- 8928 Nov, [facility] [id number] [place] [address] 01592- 1442 Nov, [facility] [id number] [place] [address] 58689- 9721 05 Nov, 2015 [facility] [id number] [place] [address] 92534- 9506 30 Oct, 2015 Lumbago with sciatica, left side M54.42 and Other chronic pain G89.29 [facility] [id number] [place] [address] 14489- 3463 22 Oct, 2015 Lumbago with sciatica, left side M54.42 ; Lumbago with sciatica, right side M54.41 ; Other chronic pain G89.29 and Suppurative hidradenitis L73.2 [facility] [id number] [place] [address] 49355- 0234 08 Oct, 2015 [facility] [id number] [place] [address] 99846- 6652 Sep, [facility] [address], [place] [address]- 1294 Sep, Unprotected sexual intercourse Z72.51 ; Hidradenitis suppurativa L73.2 ; Elevated fasting glucose R73.01 ; BMI 40.0-44.9, adult Z68.41 and Irregular menses N92.6 [facility] [id number] [place] [address] 35268- 7744 Aug, [facility] [id number] [place] [address] 04875- 6699 Jul, Routine health maintenance Z00.00 ; Abscess L02.91 ; H/O hidradenitis suppurativa Z87.2 ; Irregular menses N92.6 ; BMI 40.0-44.9, adult Z68.41 ; Elevated fasting glucose R73.01 and Hypertriglyceridemia E78.1 [facility] [id number] [place] [address] 75331- 2669 Jul, [facility] [id number] [place] [address] 86385 -2531 Jul, Hidradenitis suppurativa L73.2 [facility] [address] [address]- 5220 Jul, Bipolar disorder, unspecified F31.9 ; Anxiety disorder, unspecified F41.9 and Attention deficit hyperactivity disorder F90.9 [facility] [address] [address]- 3414 June, [facility] [id number] [place] [address] 48018- 0576 June, [facility] [id number] [place] [address] 90229- 9443 May, [facility] [address] [address]- 6034 Apr, [facility] [id number] [place] [address] 61597- 4948 16 Apr, 2016 Well woman exam Z01.419 ; BMI 40.0-44.9, adult Z68.41 ; Tobacco use Z72.0 ; Family history of diabetes mellitus Z83.3 ; Hidradenitis suppurativa L73.2 ; Routine screening for STI (sexually transmitted infection) Z11.3 ; Unprotected sexual intercourse Z72.51 and Family history of breast cancer Z80.[address] 10820- 7072 09 Apr, 2015 Bipolar disorder, unspecified F31.9 ; Anxiety disorder, unspecified F41.9 and Attention deficit hyperactivity disorder F90.[address] 28578- 8419 Mar, [address] 95016- 4413 Feb, [address] 17392- 2527 Feb, [address] 27402- 8737 Jan, Encounter for test, result negative Z32.02 and BMI 40.0-44.9, adult Z68.41 [address] [id number] [place] [address] 81705- 2918 Jan, Bipolar disorder, unspecified F31.9 ; Anxiety disorder, unspecified F41.9 and Attn-defct hyperactivity disorder, predom inattentive type F90.0 [place] [id number] [place] [address] 11770- 2652 Jan, [address] 08876- 8214 Dec, [place] [id number] [place] [address] 05604- 4164 Dec, Bipolar disorder, unspecified F31.9 ; Attention deficit hyperactivity disorder F90.9 and Anxiety disorder, unspecified F41.9 [facility] [id number] [place] [address] 213527- 4129 27 Nov, 2014 Irregular menses N92.6 ; Unprotected sexual intercourse Z72.51 ; Screening for STD sexually transmitted disease Z11.3 ; General counseling and advice for contraceptive management Z30.09 ; Oral contraceptive pill surveillance Z30.41 ; BMI 40.0-44.9, adult Z68.41 and H/O hidradenitis suppurativa Z87.2 [facility] [id number] [place] [address] [id number] Sep, Dental examination V72.2 [facility] [id number] [place] [address] 82625- 9636 Sep, Screen for STD (sexually transmitted disease) V74.5 and General counseling on prescription of oral contraceptives V25.01 [facility] [id number] [place] [address] 66371- 6466 14 May, 2014 [facility] [id number] [place] [address] 13550- 5315 2014 [facility] [id number] [place] [address] 70321- 5886 30 Apr, 2014 [facility] [id number] [place] [address] [id number]- 7344 30 Apr, 2014 [facility] [id number] [place] [address] [id number]- 7355 Apr, [facility] [id number] [place] [address] [id number]- 8425 Apr, [facility] [id number] [place] [address] [id number]- 9728 Apr, [facility] [id number] [place] [address] 691301- 5916 Apr, [facility] [id number] [place] [address] 63300- 2616 Apr, [facility] [place] [facility] [address] [id number] [place] [address]- 1013 Mar, 2014 [facility] [place] [facility] [address] [id number] [place] [address]- 7066 Mar, 2014 [facility] [place] [facility] [address] [id number] [place] [address]- 2850 Mar, [facility] [place] [facility] [address] [id number] [place] [address]- 9493 Mar, 2014 [facility] [place] [facility] [address] [id number] [place] [address]- 0107 Mar, [facility] [place] [facility] [address] [id number] [place] [address]- 3024 Mar, 2014 [facility] [place] [facility] [address] [id number] [place] [address]- 6365 Jan, [facility] [place] [facility] [address] [id number] [place] [address]- 8650 Jan, [facility] [place] [facility] [address] [id number] [place] [address]- 5703 Dec, [facility] [place] [facility] [address] [id number] [place] [address]- 7020 Dec, [facility] [place] [facility] [address] [id number] [place] [address]- 8600 Dec, [facility] [place] [facility] [address] [id number] [place] [address]- 4282 Dec, [facility] [place] [facility] [address] [id number] [place] [address]- 2176 Sep, [facility] [place] [facility] [address] [id number] [place] [address]- 9682 Sep, [facility] [place] [facility] [address] [id number] [place] [address]- 3863 Apr, [facility] [place] [facility] [address] [address]- 5413 Apr, [facility] [address] [place] [address]- 9942 Mar, [facility] [address] [address]- 3863 Mar, 2013 [facility] [address] 3564 Mar, [facility] [address] [address]- 0216 Mar, [facility] [id number] [place] [address] 64805- 5085 Jan, [facility] [address] [address]- 3472 Jan, [facility] [address] [address]- 0840 Dec, [facility] [address] [address]- 4797 Dec, [facility] [address], [place] [address]- 5740 Dec, IMMUNIZATIONS No Known Immunizations SOCIAL HISTORY Never Assessed REASON FOR VISIT f/u PLAN OF CARE Activity Details Follow Up 2 Months Reason: VITAL SIGNS MEDICATIONS Medication Instructions Dosage Frequency Start Date End Date Duration Status Ranitidine HCl 75 MG Orally Twice a day 1 tablet as needed 12h 12 Jan, 2017 Active Vitamins - (Dis) Active RESULTS No [...]
--- OUTSIDE RECORDS SUMMARY | 2017-09-24 22:51 | XMS REPORT ---
Author Author EVERARDO HUNT [facility] Address [address] [place] [address] Care Team Providers Care Driveway Attendant Name Role Phone EVERARDO HUNT Unavailable PROBLEMS Type Condition ICD9-CM Code ECA29-UX Code Onset Dates Condition Status SNOMED Code Problem Obesity affecting in second trimester O99.212 Active 779930908703 Problem BMI 50.0-59.9, adult Z68.43 Active 639740987 Problem Gastro-esophageal reflux disease without esophagitis K21.9 Active 216729598 Problem Post depression F53 Active 45963523 Problem Gestational diabetes mellitus (GDM) in third trimester, gestational diabetes method of control unspecified O24.419 Active 94364081 Problem Obesity during in third trimester O99.213 Active 273348064 Problem Obesity affecting in third trimester O99.213 Active 969706609807 Problem Abdominal pannus E65 Active 5415804303671 Problem Gestational diabetes mellitus (GDM) in third trimester controlled on oral hypoglycemic drug O24.415 Active 44577015 Problem Bipolar disorder, unspecified F31.9 Active 09228753 Problem Hypertriglyceridemia E78.1 Active 249886150 Problem Anxiety disorder, unspecified F41.9 Active 079597528 Problem Lumbago with sciatica, left side M54.42 Active 432894716 Problem Lumbago with sciatica, right side M54.41 Active 590234750 Problem Other chronic pain G89.29 Active 07008481 Problem Attention deficit hyperactivity disorder F90.9 Active 911961572 Problem Suppurative hidradenitis L73.2 Active 91141172 Problem Metabolic syndrome E88.81 Active 134339443 ALLERGIES Substance Reaction Event Type Date Status Bees anaphylaxis Non Drug Allergy Sep, Active ENCOUNTERS Encounter Location Date Diagnosis [facility] [address] [facility] [id number] [address] Jul, [facility] [address] [address] June, [facility] [address] [id number] [place] [address] 68308- 9126 June, Bipolar disorder, unspecified F31.9 ; Attention deficit hyperactivity disorder F90.9 ; High risk medication use Z79.899 and BMI 50.0- 59.9, adult Z68.43 [facility] [address] [place] [id number] [place] [address] 63302- 6969 June, [facility] [address] [id number] [place] [address] 48316- 0603 June, Hidradenitis suppurativa L73.2 and BMI 50.0-59.9, adult Z68.43 [facility] [address] [id number] [place] [address] 26448- 0378 June, Bipolar disorder, unspecified F31.9 and BMI 50.0-59.9, adult Z68.43 [facility] [address] [place] [id number] [place] [address] 72890- 9574 May, [facility] [place] [address] [id number] [place] [address] 83835- 8416 May, Lumbago with sciatica, left side M54.42 ; care and examination Z39.2 ; Lumbago with sciatica, right side M54.41 ; Other chronic pain G89.29 ; BMI 50.0-59.9, adult Z68.43 ; Abdominal pannus E65 ; Suppurative hidradenitis L73.2 and Post depression F53 [place] [address] [place] [address] 28333- 2062 Apr, [facility] [address] [place] [id number] [place] [address] 59357- 1151 Apr, Abdominal pannus E65 and BMI 45.0-49.9, adult Z68.42 [facility] [address] [place] [id number] [place] [address] 33363- 0781 Apr, Screening for iron deficiency anemia Z13.0 [facility] [address] [id number] [place] [address] 30028- 6687 Apr, Bipolar disorder, unspecified F31.9 [facility] [address] [place] [id number] [place] [address] 31577- 3508 07 Apr, 2017 Obesity during in third trimester O99.213 ; Third trimester Z34.93 ; Gestational diabetes mellitus (GDM) in third trimester controlled on oral hypoglycemic drug O24.415 ; 37 weeks gestation of Z3A.37 and Oligohydramnios in third trimester, single or unspecified fetus O41.03X0 [facility] [address] [address] [id number] [place] [address] 82943- 1909 28 Mar, 2017 Third trimester Z34.93 [facility] [address] [id number] [place] [address] 47404- 3203 26 Mar, 2017 Gestational diabetes mellitus (GDM) in third trimester controlled on oral hypoglycemic drug O24.415 [facility] [address] [place] [id number] [place] [address] 03494- 2641 Mar, [facility] [address] [place] [id number] [place] [address] 45116- 1557 Mar, Third trimester Z34.93 ; Gestational diabetes mellitus (GDM) in third trimester controlled on oral hypoglycemic drug O24.415 and 35 weeks gestation of Z3A.35 [facility] [address] [place] [id number] [place] [address] 26349- 2115 15 Mar, 2017 BMI 50.0-59.9, adult Z68.43 and Bipolar disorder, unspecified F31.9 [facility] [address] [id number] [place] [address] 56510- 1191 13 Mar, 2017 Diet controlled gestational diabetes mellitus (GDM), antepartum O24.410 [place] [address] [place] [address] 24880- 0675 07 Mar, 2017 33 weeks gestation of Z3A.33 ; Gestational diabetes mellitus (GDM) in third trimester controlled on oral hypoglycemic drug O24.415 ; Third trimester Z34.93 and Obesity affecting in third trimester O99.213 [facility] [address] [id number] [place] [address] 99137- 8113 Mar, [place] [address] [place] [address] 08615- 8576 Feb, Third trimester Z34.93 ; Encounter for immunization Z23 ; Gestational diabetes mellitus (GDM) in third trimester controlled on oral hypoglycemic drug O24.415 ; Obesity during in third trimester O99.213 and 31 weeks gestation of Z3A.31 [facility] [address] [address] [id number] [place] [address] 35723- 6341 Feb, [facility] [address] [id number] [place] [address] 64008- 5829 Feb, Gestational diabetes mellitus (GDM) in third trimester, gestational diabetes method of control unspecified O24.419 [facility] [address] [place] [id number] [place] [address] 43496- 7528 Feb, [facility] [place] [address] [place] [id number] [place] [address] 63586- 3389 Feb, [facility] [address] [place] [address] 17898- 0755 Feb, Bipolar disorder, unspecified F31.9 and BMI 50.0-59.9, adult Z68.43 [facility] [address] [place] [address] 04977- 3929 Feb, 29 weeks gestation of Z3A.29 ; Gestational diabetes mellitus (GDM) in third trimester, gestational diabetes method of control unspecified O24.419 ; Third trimester Z34.93 ; Obesity affecting in third trimester O99.213 and BMI 50.0-59.9, adult Z68.43 [facility] [address] [place] [address] 93590- 6777 Jan, Abnormal glucose tolerance test (GTT) R73.02 [facility] [address] [place] [address] [phone] 15 Jan, 2017 Dental examination Z01.20 [facility] [address] [id number] [place] [address] 10836- 8157 14 Jan, 2017 Bipolar disorder, unspecified F31.9 [facility] [address] [place] [id number] [place] [address] 67760- 7242 12 Jan, 2017 25 weeks gestation of Z3A.25 ; Second trimester Z34.92 ; Gastro-esophageal reflux disease without esophagitis K21.9 ; Diseases of the digestive system complicating , second trimester O99.612 ; Abnormal ultrasonic finding on screening of mother O28.3 and BMI 50.0-59.9, adult Z68.43 [facility] [address] [place] [id number] [place] [address] 24256- 7267 05 Jan, 2017 [facility] [address] [id number] [place] [address] 99688- 3678 30 Dec, 2016 [facility] [address] [place] [id number] [place] [address] 94324- 7751 14 Dec, 2016 Dental examination Z01.20 [facility] [address] [address] [id number] [place] [address] 16880- 7100 14 Dec, 2016 Second trimester Z34.92 ; 21 weeks gestation of Z3A.21 and Obesity affecting in second trimester O99.212 [facility] [address] [id number] [place] [address] 23287- 9312 13 Dec, 2016 [facility] [address] [address] [id number] [place] [address] 04545- 3610 10 Dec, 2016 Lump of right breast N63.10 ; Abscess of left thigh L02.416 and BMI 45.0-49.9, adult Z68.42 [facility] [address] [place] [address] [phone] 10 Dec, 2016 Dental examination Z01.20 [facility] [address] [id number] [place] [address] 27396- 1596 Dec, [facility] [address] [place] [address] 66915- 7616 Dec, Bipolar disorder, unspecified F31.9 [facility] [address], [place] [address] 7655 Nov, [facility] [id number] [place] [address] 32591- 5121 Nov, [facility] [id number] [place] [address] 09679- 6729 Nov, 17 weeks gestation of Z3A.17 and Right non- suppurative otitis media H65.91 [facility] [address] [id number] [place] [address] 80687- 3821 Nov, [facility] [address] [id number] [place] [address] 03250- 9332 Nov, [facility] [address] [id number] [place] [address] 04098- 4230 Nov, Bipolar disorder, unspecified F31.9 [facility] [address] [place] [id number] [place] [address] 20645- 6256 10 Nov, 2016 16 weeks gestation of Z3A.16 ; Second trimester Z34.92 and Obesity affecting in second trimester O99.212 [facility] [address] [place] [address] [id number] Nov, Encounter for dental examination Z01.20 [facility] [address], [place] [address]- 0658 Oct, [facility] [address] [place] [id number] [place] [address] 23045- 2047 Oct, 12 weeks gestation of Z3A.12 ; First trimester Z34.90 and Obesity affecting in first trimester O99.211 [facility] [address] [place] [address] 65728- 6801 Sep, [facility] [address], [place] [address]- 9713 Sep, [facility] [address] [place] [id number] [place] [address] 11184- 6862 Sep, Bipolar disorder, unspecified F31.9 [facility] [address] [id number] [place] [address] 51684- 9568 Sep, [facility] [address] [id number] [place] [address] 36643- 7936 Sep, [facility] [address] [address] [id number] [place] [address] 10448- 7249 Sep, Normal , first Z34.00 [facility] [address] [place] [id number] [place] [address] 13250- 0345 Sep, Normal , first Z34.00 ; 8 weeks gestation of Z3A.08 and Obesity affecting in first trimester O99.211 [facility] [address] [place] [id number] [place] [address] 10271- 0818 Sep, Anxiety disorder, unspecified F41.9 [facility] [address] [id number] [place] [address] 95656- 1651 Sep, [facility] [place] [address] [id number] [place] [address] 75044- 5619 Sep, Encounter for test, result unknown Z32.00 [facility] [address] [place] [id number] [place] [address] 96297- 3493 Aug, Anxiety disorder, unspecified F41.9 [facility] [address] [place] [id number] [place] [address] 43371- 7667 Jul, Suppurative hidradenitis L73.2 ; Metabolic syndrome E88.81 ; BMI 40.0-44.9, adult Z68.41 and High risk sexual behavior Z72.51 [facility] [place] [address] [place] [id number] [place] [address] 00101- 8752 Jul, Anxiety disorder, unspecified F41.9 [facility] [place] [address] [place] [id number] [place] [address] 04425- 1161 June, Anxiety disorder, unspecified F41.9 ; Attention deficit hyperactivity disorder F90.9 and Bipolar disorder, unspecified F31.9 [facility] [address] [place] [id number] [place] [address] 39021- 2015 June, Attention deficit hyperactivity disorder F90.9 [facility] [address] [place] [id number] [place] [address] 01487- 1040 May, Attention deficit hyperactivity disorder F90.9 [facility] [address] [place] [id number] [place] [address] 63841- 0766 Apr, Attention deficit hyperactivity disorder F90.9 [facility] [address] [place] [id number] [place] [address] 33088- 5635 14 Mar, 2016 Abscess L02.91 and Screening for STD sexually transmitted disease Z11.3 [facility] [address] [place] [id number] [place] [address] 54427- 6965 Mar, Attention deficit hyperactivity disorder F90.9 [facility] [place] [address] [place] [id number] [place] [address] 33323- 2129 Feb, Attention deficit hyperactivity disorder F90.9 [facility] [place] [address] [place] [id number] [place] [address] 13069- 7078 Feb, Attention deficit disorder of adult F98.8 and DMDD ( disruptive mood dysregulation disorder) F34.81 [facility] [address] [place] [id number] [place] [address] 24190- 3073 Jan, Exposure to sexually transmitted disease (STD) Z20.2 and Metabolic syndrome E88.81 [facility] [address] [place] [id number] [place] [address] 63686- 8090 Jan, Possible exposure to STD Z20.2 ; BMI 40.0-44.9, adult Z68.41 ; Metabolic syndrome E88.81 ; Elevated fasting glucose R73.01 and Hypertriglyceridemia E78.1 [facility] [address] [place] [address] 20920- 3318 Jan, Possible exposure to STD Z20.2 ; Lumbago with sciatica, left side M54.42 ; Lumbago with sciatica, right side M54.41 ; BMI 40.0-44.9, adult Z68.41 ; Metabolic syndrome E88.81 ; Elevated fasting glucose R73.01 ; Hypertriglyceridemia E78.1 and Suppurative hidradenitis L73.2 [facility] [address] [place] [id number] [place] [address] 52499- 0839 Dec, Attention deficit hyperactivity disorder F90.9 [facility] [address] 01340- 3934 Dec, [facility] [address] [place] [id number] [place] [address] 92507- 0395 Nov, [facility] [address] [place] [id number] [place] [address] 38455- 6797 Nov, [facility] [place] [address] [place] [id number] [place] [address] 58789- 8696 Nov, [facility] [place] [address] [place] [id number] [place] [address] 76949- 8195 05 Nov, 2015 [facility] [address] [place] [id number] [place] [address] 08256- 3257 30 Oct, 2015 Lumbago with sciatica, left side M54.42 and Other chronic pain G89.29 [facility] [address] [id number] [place] [address] 40826- 5759 22 Oct, 2015 Lumbago with sciatica, left side M54.42 ; Lumbago with sciatica, right side M54.41 ; Other chronic pain G89.29 and Suppurative hidradenitis L73.2 [facility] [address] [place] [id number] [place] [address] 49477- 9798 08 Oct, 2015 [facility] [address] [place] [id number] [place] [address] 22155- 3013 Sep, [facility] [address], [place] [address]- 0679 Sep, Unprotected sexual intercourse Z72.51 ; Hidradenitis suppurativa L73.2 ; Elevated fasting glucose R73.01 ; BMI 40.0-44.9, adult Z68.41 and Irregular menses N92.6 [facility] [address] [place] [id number] [place] [address] 13418- 1866 Aug, [facility] [address] [place] [id number] [place] [address] 07107- 7533 Jul, Routine health maintenance Z00.00 ; Abscess L02.91 ; H/O hidradenitis suppurativa Z87.2 ; Irregular menses N92.6 ; BMI 40.0-44.9, adult Z68.41 ; Elevated fasting glucose R73.01 and Hypertriglyceridemia E78.1 [facility] [address] [place] [id number] [place] [address] 44173- 8853 Jul, [facility] [address] [place] [address] 83131 -1741 Jul, Hidradenitis suppurativa L73.2 [facility] [address] [place] [id number] [place] [address] 58569- 5814 Jul, Bipolar disorder, unspecified F31.9 ; Anxiety disorder, unspecified F41.9 and Attention deficit hyperactivity disorder F90.9 [facility] [address], [place] [address]- 4178 June, [facility] [place] [address] [place] [id number] [place] [address] 80215- 1942 June, [facility] [address] [place] [id number] [place] [address] 69235- 1376 May, [facility] [address] [address]- 9289 Apr, [facility] [id number] [place] [address] 04609- 4184 16 Apr, 2016 Well woman exam Z01.419 ; BMI 40.0-44.9, adult Z68.41 ; Tobacco use Z72.0 ; Family history of diabetes mellitus Z83.3 ; Hidradenitis suppurativa L73.2 ; Routine screening for STI (sexually transmitted infection) Z11.3 ; Unprotected sexual intercourse Z72.51 and Family history of breast cancer Z80.[address] 82138- 1706 Apr, Bipolar disorder, unspecified F31.9 ; Anxiety disorder, unspecified F41.9 and Attention deficit hyperactivity disorder F90.[address] 48312- 3054 Mar, [place] [id number] [place] [address] 71615- 8936 Feb, [address] 06473- 8351 Feb, [place] [id number] [place] [address] 62969- 8684 Jan, Encounter for test, result negative Z32.02 and BMI 40.0-44.9, adult Z68.41 [place] [id number] [place] [address] 19879- 6646 Jan, Bipolar disorder, unspecified F31.9 ; Anxiety disorder, unspecified F41.9 and Attn-defct hyperactivity disorder, predom inattentive type F90.0 [place] [id number] [place] [address] 51368- 3558 Jan, [address] 26101- 0039 Dec, [place] [id number] [place] [address] 43510- 9900 Dec, Bipolar disorder, unspecified F31.9 ; Attention deficit hyperactivity disorder F90.9 and Anxiety disorder, unspecified F41.9 [facility] [address], [place] [address]- 8080 27 Nov, 2014 Irregular menses N92.6 ; Unprotected sexual intercourse Z72.51 ; Screening for STD sexually transmitted disease Z11.3 ; General counseling and advice for contraceptive management Z30.09 ; Oral contraceptive pill surveillance Z30.41 ; BMI 40.0-44.9, adult Z68.41 and H/O hidradenitis suppurativa Z87.2 [facility] [address] [place] [address] [id number] Sep, Dental examination V72.2 [facility] [id number] [place] [address] 89356- 4036 Sep, Screen for STD (sexually transmitted disease) V74.5 and General counseling on prescription of oral contraceptives V25.01 [facility] [id number] [place] [address] 72397- 1086 14 May, 2014 [facility] [id number] [place] [address] [id number]- 0034 May, [facility] [id number] [place] [address] 96178- 4456 Apr, [facility] [id number] [place] [address] 694197- 5396 30 Apr, 2014 [facility] [id number] [place] [address] 91199981- 3775 Apr, [facility] [address] [place] [address] [id number]- 0658 Apr, [facility] [id number] [place] [address] 532771- 7118 Apr, [facility] [id number] [place] [address] 54455- 0086 Apr, [facility] [id number] [place] [address] 27937- 0266 Apr, [facility] [place] [facility] [address] [id number] [place] [address]- 3045 Mar, 2014 [facility] [place] [facility] [address] [id number] [place] [address]- 4591 Mar, 2014 [facility] [place] [facility] [address] [id number] [place] [address]- 4049 Mar, 2014 [facility] [place] [facility] [address] [id number] [place] [address]- 5573 Mar, 2014 [facility] [place] [facility] [address] [id number] [place] [address]- 4781 Mar, [facility] [place] [facility] [address] [id number] [place] [address]- 2115 Mar, 2014 [facility] [place] [facility] [address] [id number] [place] [address]- 6969 Jan, [facility] [place] [facility] [address] [id number] [place] [address]- 8358 Jan, [facility] [place] [facility] [address] [id number] [place] [address]- 3906 Dec, [facility] [place] [facility] [address] [id number] [place] [address]- 5796 Dec, [facility] [place] [facility] [address] [id number] [place] [address]- 1606 Dec, [facility] [place] [facility] [address] [id number] [place] [address]- 6079 Dec, [facility] [place] [facility] [address] [id number] [place] [address]- 2588 Sep, [facility] [place] [facility] [address] [id number] [place] [address]- 8487 Sep, [facility] [place] [facility] [address] [id number] [place] [address]- 0540 Apr, [facility] [place] [facility] [address] 9515 Apr, [facility] [address] [address]- 8875 Mar, [facility] [address] 7809 Mar, [facility] [address] 6906 Mar, [facility] [address] 8812 Mar, [facility] [id number] [place] [address] 424013- 7337 Jan, [facility] [id number] [place] [address] 85680- 8689 Jan, [facility] [id number] [place] [address] 79696- 5403 Dec, [facility] [address], [place] [address]- 9074 Dec, [facility] [address], [place] [address]- 0991 Dec, IMMUNIZATIONS No Known Immunizations SOCIAL HISTORY Never Assessed REASON FOR VISIT OB-intake -- yoan crowder, patient states she was at ER twice ove rthe weekend for allergies and than abcess on stomach PLAN OF CARE Activity Details Follow Up 4 Weeks Reason: VITAL SIGNS Height 64 in 2016-09-27 Weight 300.0 lbs 2016-09-27 Temperature 98.0 degrees Fahrenheit 2016-09-27 Heart Rate 80 bpm 2016-09-27 Respiratory Rate 22 2016-09-27 BMI 51.495 kg/m2 2016-09-27 Blood pressure systolic 138 mmHg 2016-09-27 Blood pressure diastolic 80 mmHg 2016-09-27 MEDICATIONS Medication Instructions Dosage Frequency Start Date End Date Duration Status Vitamin 27-0.8 MG Active MetFORMIN HCl ER 500 MG Orally Once a day 1 tablet with evening meal 24h Jan, 30 day(s) Not-Taking Adderall 20 mg Orally twice a day 1 tablet 12h 15 Sep, 2016 7 days Not -Taking Trazodone HCl 100 MG Orally voucher Once a day 1 tablet at bedtime 24h Dec, 30 days Not-Taking Trileptal 300 MG Orally twice a day 1 tablet 12h Dec, 30 days Not-Taking Tums Active RESULTS No Results PROCEDURES Procedure Date Ordered Result Body Site URINE CULTURE/COLONY COUNT Sep 27, 2016 URINALYSIS, AUTO, W/O SCOPE Sep 27, 2016 URINE TEST Sep 27, 2016 CULTURE, BACTERIA, OTHER Sep 27, 2016 DRUG TEST PRSMV DIR OPT OBS Sep 27, 2016 SPECIMEN HANDLING Sep 27, 2016 TRICHOMONAS ASSAY W/OPTIC Sep 27, 2016 INSTRUCTIONS MEDICATIONS ADMINISTERED No Known Medications MEDICAL (GENERAL) HISTORY Type Description Date Medical History Hidradenitis Supprativa Medical History Bipolar Disorder Medical History ADHD Medical History Due May 14, 2017 Surgical History pilonidal cyst removal tailbone Surgical History 2017 Hospitalization History Dehydration & concussion 07/23/2016 Hospitalization History child 2017
--- OUTSIDE RECORDS SUMMARY | 2017-09-24 22:51 | XMS REPORT ---
Author Author RAI Harper Organization [facility] Address Unknown Care Team Providers Care Cardiac Rehabilitation Program Director Name Role Phone RAI Harper Unavailable PROBLEMS Type Condition ICD9-CM Code ICZ25-NW Code Onset Dates Condition Status SNOMED Code Problem Hypertriglyceridemia E78.1 Active 775673586 Problem Lumbago with sciatica, right side M54.41 Active 956652352 Problem Lumbago with sciatica, left side M54.42 Active 948140795 Problem Encounter for dental examination Z01.20 Active 285075496 Problem Obesity affecting in first trimester O99.211 Active 223768652395 Problem Suppurative hidradenitis L73.2 Active 88487155 Problem Other chronic pain G89.29 Active 84278018 Problem Metabolic syndrome E88.81 Active 976249817 Problem Attention deficit hyperactivity disorder F90.9 Active 053952731 Problem Irregular menses N92.6 Active 64958959 Problem BMI 40.0-44.9, adult Z68.41 Active 796697180 Problem Anxiety disorder, unspecified F41.9 Active 918135262 Problem Oral contraceptive pill surveillance Z30.41 Active 784144287703867 Problem Bipolar disorder, unspecified F31.9 Active 98629573 Problem Elevated fasting glucose R73.01 Active 885600765 ALLERGIES No Information SOCIAL HISTORY Never Assessed PLAN OF CARE VITAL SIGNS MEDICATIONS Medication Instructions Dosage Frequency Start Date End Date Duration Status Adderall 20 mg Orally twice a day 1 tablet 12h 10 Jun, 2016 28 days Active RESULTS No Results PROCEDURES No Known procedures IMMUNIZATIONS No Known Immunizations MEDICAL (GENERAL) HISTORY Type Description Date Medical History Hidradenitis Supprativa Medical History Bipolar Disorder Medical History ADHD Medical History Due May 14, 2017 Surgical History pilonidal cyst removal tailbone Hospitalization History Dehydration & concussion 07/23/2016
--- OUTSIDE RECORDS SUMMARY | 2017-09-24 22:52 | XMS REPORT ---
Author Author EVERARDO HUNT [facility] Address [address] [place] [address] Care Team Providers Care Sailmaker Name Role Phone EVERARDO HUNT Unavailable PROBLEMS Type Condition ICD9-CM Code RSK22-HQ Code Onset Dates Condition Status SNOMED Code Problem Obesity affecting in second trimester O99.212 Active 101265112156 Problem BMI 50.0-59.9, adult Z68.43 Active 590329300 Problem Gastro-esophageal reflux disease without esophagitis K21.9 Active 981026359 Problem Post depression F53 Active 21084601 Problem Gestational diabetes mellitus (GDM) in third trimester, gestational diabetes method of control unspecified O24.419 Active 52128667 Problem Obesity during in third trimester O99.213 Active 662922846 Problem Obesity affecting in third trimester O99.213 Active 783671461459 Problem Abdominal pannus E65 Active 9124307536171 Problem Gestational diabetes mellitus (GDM) in third trimester controlled on oral hypoglycemic drug O24.415 Active 79888559 Problem Bipolar disorder, unspecified F31.9 Active 78953601 Problem Hypertriglyceridemia E78.1 Active 617599116 Problem Anxiety disorder, unspecified F41.9 Active 571850671 Problem Lumbago with sciatica, left side M54.42 Active 555482662 Problem Lumbago with sciatica, right side M54.41 Active 225778117 Problem Other chronic pain G89.29 Active 12657635 Problem Attention deficit hyperactivity disorder F90.9 Active 121843813 Problem Suppurative hidradenitis L73.2 Active 32709655 Problem Metabolic syndrome E88.81 Active 062086346 ALLERGIES No Information ENCOUNTERS Encounter Location Date Diagnosis [facility] [address] [facility] [id number] [address] Jul, [facility] [id number] [address] June, [place] [address] [place] [address] 74551- 2286 June, Bipolar disorder, unspecified F31.9 ; Attention deficit hyperactivity disorder F90.9 ; High risk medication use Z79.899 and BMI 50.0- 59.9, adult Z68.43 [place] [id number] [place] [address] 74993- 3063 June, [place] [id number] [place] [address] 89680- 6130 June, Hidradenitis suppurativa L73.2 and BMI 50.0-59.9, adult Z68.43 [place] [id number] [place] [address] 69137- 6019 June, Bipolar disorder, unspecified F31.9 and BMI 50.0-59.9, adult Z68.43 [place] [id number] [place] [address] 41217- 5703 May, [place] [id number] [place] [address] 48211- 1708 May, Lumbago with sciatica, left side M54.42 ; care and examination Z39.2 ; Lumbago with sciatica, right side M54.41 ; Other chronic pain G89.29 ; BMI 50.0-59.9, adult Z68.43 ; Abdominal pannus E65 ; Suppurative hidradenitis L73.2 and Post depression F53 [place] [address] [place] [address] 84863- 5704 Apr, [place] [id number] [place] [address] 87746- 3009 Apr, Abdominal pannus E65 and BMI 45.0-49.9, adult Z68.42 [place] [id number] [place] [address] 29470- 4640 Apr, Screening for iron deficiency anemia Z13.0 [place] [address] [address] 2[address] Apr, Bipolar disorder, unspecified F31.9 [place] [address] [place] [address] 70294- 3243 07 Apr, 2017 Obesity during in third trimester O99.213 ; Third trimester Z34.93 ; Gestational diabetes mellitus (GDM) in third trimester controlled on oral hypoglycemic drug O24.415 ; 37 weeks gestation of Z3A.37 and Oligohydramnios in third trimester, single or unspecified fetus O41.03X0 [place] [id number] [place] [address] 03355- 8742 28 Mar, 2017 Third trimester Z34.93 [place] [id number] [place] [address] 58434- 9543 26 Mar, 2017 Gestational diabetes mellitus (GDM) in third trimester controlled on oral hypoglycemic drug O24.415 [place] [id number] [place] [address] 77198- 5604 Mar, [place] [id number] [place] [address] 27988- 8629 Mar, Third trimester Z34.93 ; Gestational diabetes mellitus (GDM) in third trimester controlled on oral hypoglycemic drug O24.415 and 35 weeks gestation of Z3A.35 [place] [id number] [place] [address] 40608- 1875 15 Mar, 2017 BMI 50.0-59.9, adult Z68.43 and Bipolar disorder, unspecified F31.9 [place] [address] [place] [address] 14990- 9774 13 Mar, 2017 Diet controlled gestational diabetes mellitus (GDM), antepartum O24.410 [place] [address] [place] [address] 23402- 8297 07 Mar, 2017 33 weeks gestation of Z3A.33 ; Gestational diabetes mellitus (GDM) in third trimester controlled on oral hypoglycemic drug O24.415 ; Third trimester Z34.93 and Obesity affecting in third trimester O99.213 [place] [address] [place] [address] 75821- 7351 Mar, [place] [id number] [place] [address] 64884- 5041 24 Feb, 2017 Third trimester Z34.93 ; Encounter for immunization Z23 ; Gestational diabetes mellitus (GDM) in third trimester controlled on oral hypoglycemic drug O24.415 ; Obesity during in third trimester O99.213 and 31 weeks gestation of Z3A.31 [place] [id number] [place] [address] 82497- 8654 Feb, [place] [id number] [place] [address] 78809- 9340 Feb, Gestational diabetes mellitus (GDM) in third trimester, gestational diabetes method of control unspecified O24.419 [place] [id number] [place] [address] 37506- 2976 Feb, [place] [id number] [place] [address] 49883- 1810 Feb, [place] [id number] [place] [address] 67257- 1027 Feb, Bipolar disorder, unspecified F31.9 and BMI 50.0-59.9, adult Z68.43 [place] [address] [place] [address] 92963- 1522 10 Feb, 2017 29 weeks gestation of Z3A.29 ; Gestational diabetes mellitus (GDM) in third trimester, gestational diabetes method of control unspecified O24.419 ; Third trimester Z34.93 ; Obesity affecting in third trimester O99.213 and BMI 50.0-59.9, adult Z68.43 [place] [address] [place] [address] 78524- 8340 Jan, Abnormal glucose tolerance test (GTT) R73.02 [place] [address] [id number] [place] [address] [id number] 15 Jan, 2017 Dental examination Z01.20 [place] [id number] [place] [address] 39272- 2099 14 Jan, 2017 Bipolar disorder, unspecified F31.9 [place] [id number] [place] [address] 99264- 9103 12 Jan, 2017 25 weeks gestation of Z3A.25 ; Second trimester Z34.92 ; Gastro-esophageal reflux disease without esophagitis K21.9 ; Diseases of the digestive system complicating , second trimester O99.612 ; Abnormal ultrasonic finding on screening of mother O28.3 and BMI 50.0-59.9, adult Z68.43 [place] [address] 50049- 6850 05 Jan, 2017 [place] [address] 23604- 7599 30 Dec, 2016 [place] [address] 23788- 1096 14 Dec, 2016 Dental examination Z01.20 [place] [address] 75323- 3990 14 Dec, 2016 Second trimester Z34.92 ; 21 weeks gestation of Z3A.21 and Obesity affecting in second trimester O99.212 [place] [id number] [place] [address] 45232- 7279 13 Dec, 2016 [place] [address] 93558- 1603 10 Dec, 2016 Lump of right breast N63.10 ; Abscess of left thigh L02.416 and BMI 45.0-49.9, adult Z68.42 [facility] [id number] [place] [address] [phone] 10 Dec, 2016 Dental examination Z01.20 [place] [id number] [place] [address] 56797- 1011 08 Dec, 2016 [place] [address] [address]- 5267 Dec, Bipolar disorder, unspecified F31.9 [facility] [id number] [place] [address] 28654- 8215 Nov, [facility] [id number] [place] [address] 50109- 5699 Nov, [facility] [id number] [place] [address] 17229- 0530 Nov, 17 weeks gestation of Z3A.17 and Right non- suppurative otitis media H65.91 [facility] [id number] [place] [address] 99501- 7619 Nov, [facility] [id number] [place] [address] 12827- 9631 Nov, [facility] [id number] [place] [address] 45698- 5244 Nov, Bipolar disorder, unspecified F31.9 [facility] [id number] [place] [address] 68760- 9410 10 Nov, 2016 16 weeks gestation of Z3A.16 ; Second trimester Z34.92 and Obesity affecting in second trimester O99.212 [facility] [address] [address] Nov, Encounter for dental examination Z01.20 [facility] [address] [place] [address] 01456- 4677 Oct, [facility] [address] [place] [address] 26020- 8920 Oct, 12 weeks gestation of Z3A.12 ; First trimester Z34.90 and Obesity affecting in first trimester O99.211 [facility] [address] [address] 1650 Sep, [facility] [id number] [place] [address] 62987- 9107 Sep, [place] [id number] [place] [address] 61781- 4097 Sep, Bipolar disorder, unspecified F31.9 [place] [id number] [place] [address] 36797- 8799 Sep, [place] [id number] [place] [address] 41587- 8260 Sep, [place] [id number] [place] [address] 11637- 1977 Sep, Normal , first Z34.00 [place] [id number] [place] [address] 48960- 6214 Sep, Normal , first Z34.00 ; 8 weeks gestation of Z3A.08 and Obesity affecting in first trimester O99.211 [place] [id number] [place] [address] 48269- 1552 Sep, Anxiety disorder, unspecified F41.9 [place] [id number] [place] [address] 18429- 4913 Sep, [place] [id number] [place] [address] 00119- 3184 Sep, Encounter for test, result unknown Z32.00 [place] [id number] [place] [address] 31256- 6218 Aug, Anxiety disorder, unspecified F41.9 [place] [id number] [place] [address] 19463- 1578 Jul, Suppurative hidradenitis L73.2 ; Metabolic syndrome E88.81 ; BMI 40.0-44.9, adult Z68.41 and High risk sexual behavior Z72.51 [place] [id number] [place] [address] 48574- 3892 Jul, Anxiety disorder, unspecified F41.9 [place] [id number] [place] [address] 75459- 6494 June, Anxiety disorder, unspecified F41.9 ; Attention deficit hyperactivity disorder F90.9 and Bipolar disorder, unspecified F31.9 [place] [id number] [place] [address] 11064- 1268 June, Attention deficit hyperactivity disorder F90.9 [place] [address] 08317- 3194 May, Attention deficit hyperactivity disorder F90.9 [place] [id number] [place] [address] 45856- 6888 Apr, Attention deficit hyperactivity disorder F90.9 [place] [id number] [place] [address] 78905- 0617 14 Mar, 2016 Abscess L02.91 and Screening for STD sexually transmitted disease Z11.3 [place] [id number] [place] [address] 36733- 0627 Mar, Attention deficit hyperactivity disorder F90.9 [place] [id number] [place] [address] 46135- 8753 Feb, Attention deficit hyperactivity disorder F90.9 [place] [id number] [place] [address] 28700- 5463 Feb, Attention deficit disorder of adult F98.8 and DMDD ( disruptive mood dysregulation disorder) F34.81 [place] [id number] [place] [address] 13375- 2223 Jan, Exposure to sexually transmitted disease (STD) Z20.2 and Metabolic syndrome E88.[address] 58547- 9852 Jan, Possible exposure to STD Z20.2 ; BMI 40.0-44.9, adult Z68.41 ; Metabolic syndrome E88.81 ; Elevated fasting glucose R73.01 and Hypertriglyceridemia E78.1 [place] [address] [place] [address]- 6326 Jan, Possible exposure to STD Z20.2 ; Lumbago with sciatica, left side M54.42 ; Lumbago with sciatica, right side M54.41 ; BMI 40.0-44.9, adult Z68.41 ; Metabolic syndrome E88.81 ; Elevated fasting glucose R73.01 ; Hypertriglyceridemia E78.1 and Suppurative hidradenitis L73.2 [facility] [id number] [place] [address] 74267- 9036 Dec, Attention deficit hyperactivity disorder F90.9 [facility] [id number] [place] [address] 07295- 0303 Dec, [facility] [id number] [place] [address] 35678- 9116 Nov, [facility] [id number] [place] [address] 96258- 7562 Nov, [facility] [id number] [place] [address] 30959- 1410 Nov, [facility] [id number] [place] [address] 93561- 1040 Nov, [facility] [id number] [place] [address] 58851- 7282 30 Oct, 2015 Other chronic pain G89.29 and Lumbago with sciatica, left side M54.42 [facility] [id number] [place] [address] 52532- 3678 22 Oct, 2015 Lumbago with sciatica, left side M54.42 ; Lumbago with sciatica, right side M54.41 ; Other chronic pain G89.29 and Suppurative hidradenitis L73.2 [facility] [id number] [place] [address] 41426- 4070 Oct, [facility] [id number] [place] [address] 01636- 2450 Sep, [facility] [address] [address]- 3218 Sep, Unprotected sexual intercourse Z72.51 ; Hidradenitis suppurativa L73.2 ; Elevated fasting glucose R73.01 ; BMI 40.0-44.9, adult Z68.41 and Irregular menses N92.6 [facility] [id number] [place] [address] 79169- 0645 Aug, [place] [id number] [place] [address] 01179- 7738 Jul, Routine health maintenance Z00.00 ; Abscess L02.91 ; H/O hidradenitis suppurativa Z87.2 ; Irregular menses N92.6 ; BMI 40.0-44.9, adult Z68.41 ; Elevated fasting glucose R73.01 and Hypertriglyceridemia E78.1 [place] [id number] [place] [address] 45679- 2523 Jul, [facility] [id number] [place] [address] 94955 -6180 Jul, Hidradenitis suppurativa L73.2 [place] [id number] [place] [address] 00467- 4008 Jul, Bipolar disorder, unspecified F31.9 ; Anxiety disorder, unspecified F41.9 and Attention deficit hyperactivity disorder F90.9 [place] [id number] [place] [address] 71428- 8579 June, [place] [id number] [place] [address] 29652- 1205 June, [facility] [id number] [place] [address] 52396- 2534 May, [facility] [id number] [place] [address] 44718- 7423 Apr, [facility] [id number] [place] [address] 56435- 5033 16 Apr, 2016 Well woman exam Z01.419 ; BMI 40.0-44.9, adult Z68.41 ; Tobacco use Z72.0 ; Family history of diabetes mellitus Z83.3 ; Hidradenitis suppurativa L73.2 ; Routine screening for STI (sexually transmitted infection) Z11.3 ; Unprotected sexual intercourse Z72.51 and Family history of breast cancer Z80.[address] 85971- 0766 Apr, Bipolar disorder, unspecified F31.9 ; Anxiety disorder, unspecified F41.9 and Attention deficit hyperactivity disorder F90.[address] 054633- 5141 Mar, [address] 47526- 7185 Feb, [address] 64059- 7618 Feb, [address] 39463- 6652 Jan, Encounter for test, result negative Z32.02 and BMI 40.0-44.9, adult Z68.41 [place] [id number] [place] [address] 66021- 1849 Jan, Bipolar disorder, unspecified F31.9 ; Anxiety disorder, unspecified F41.9 and Attn-defct hyperactivity disorder, predom inattentive type F90.0 [place] [id number] [place] [address] 89498- 7561 Jan, [address] 09678- 8007 Dec, [address] 12177- 6437 Dec, Bipolar disorder, unspecified F31.9 ; Attention deficit hyperactivity disorder F90.9 and Anxiety disorder, unspecified F41.9 [facility] [address] [address]- 6200 27 Nov, 2014 Irregular menses N92.6 ; Unprotected sexual intercourse Z72.51 ; Screening for STD sexually transmitted disease Z11.3 ; General counseling and advice for contraceptive management Z30.09 ; Oral contraceptive pill surveillance Z30.41 ; BMI 40.0-44.9, adult Z68.41 and H/O hidradenitis suppurativa Z87.2 [facility] [id number] [place] [address] [id number] Sep, Dental examination V72.2 [facility] [id number] [place] [address] 703685- 3396 Sep, Screen for STD (sexually transmitted disease) V74.5 and General counseling on prescription of oral contraceptives V25.01 [facility] [address] [place] [address] 29430769- 8966 14 May, 2014 [facility] [id number] [place] [address] [phone]- 3161 May, [facility] [address] [place] [address] 88071988- 1711 Apr, [facility] [id number] [place] [address] [phone]- 9287 30 Apr, 2014 [facility] [address] [address]- 1990 Apr, [facility] [id number] [place] [address] [phone]- 7048 Apr, [facility] [address] [address]- 6910 Apr, [facility] [address] [place] [address] [id number]- 3538 Apr, [facility] [address] [address]- 1792 Apr, [facility] [id number] [place] [address]- 5110 Mar, 2014 [facility] [place] [facility] [address] [id number] [place] [address]- 9296 Mar, 2014 [facility] [place] [facility] [address] [id number] [place] [address]- 0566 Mar, 2014 [facility] [place] [facility] [address] [id number] [place] [address]- 8576 Mar, 2014 [facility] [place] [facility] [address] [id number] [place] [address]- 0714 Mar, 2014 [facility] [place] [facility] [address] [id number] [place] [address]- 6874 Mar, 2014 [facility] [place] [facility] [address] [id number] [place] [address]- 0278 Jan, [facility] [place] [facility] [address] [id number] [place] [address]- 8062 Jan, [facility] [place] [facility] [address] [id number] [place] [address]- 0072 Dec, [facility] [place] [facility] [address] [id number] [place] [address]- 5994 Dec, [facility] [place] [facility] [address] [facility] [id number] [place] [address]- 6461 Dec, [facility] [place] [facility] [address] [id number] [place] [address]- 9246 Dec, [facility] [place] [facility] [address] [id number] [place] [address]- 1945 Sep, [facility] [place] [facility] [address] [id number] [place] [address]- 6776 Sep, [facility] [place] [facility] [address] [id number] [place] 9444 Apr, [facility] [place] [facility] [address] [id number] [place] [address]- 9783 Apr, [facility] [id number] [address]- 5622 Mar, [facility] [id number] [address]- 1456 Mar, [facility] [id number] [address]- 8140 Mar, [facility] [id number] 1266 Mar, [facility] [id number]388 Jan, [facility] [address] [address]- 2637 Jan, [facility] [address]- [address] Dec, [facility] [address] [address]- 7626 Dec, [facility] [id number] [address] Dec, IMMUNIZATIONS No Known Immunizations SOCIAL HISTORY Never Assessed REASON FOR VISIT 3 hour gtt PLAN OF CARE VITAL SIGNS MEDICATIONS Unknown Medications RESULTS Name Result Date Reference Range GLUCOSE TAMAR 3 HOUR 2017-02-19 COMMENT TIME 1 SPECIMEN 1 TIME 2 SPECIMEN 2 TIME 3 SPECIMEN 3 TIME 4 SPECIMEN 4 Glucose - Fasting Glucose - 1 hour Glucose - 2 hour Glucose - 3 hour Note: Gest Glucose Tolerance (4) GLUCOSE TAMAR 3 HOUR 2017-02-19 COMMENT TIME 1 SPECIMEN 1 TIME 2 SPECIMEN 2 TIME 3 SPECIMEN 3 TIME 4 SPECIMEN 4 Glucose - Fasting Glucose - 1 hour Glucose - 2 hour Glucose - 3 hour Note: Gest Glucose Tolerance (4) PROCEDURES Procedure Date Ordered Result Body Site LAB NOT BILLED BY [facility] Jan 27, 2017 INSTRUCTIONS MEDICATIONS ADMINISTERED No Known Medications MEDICAL (GENERAL) HISTORY Type Description Date Medical History Hidradenitis Supprativa Medical History Bipolar Disorder Medical History ADHD Medical History Due May 14, 2017 Surgical History pilonidal cyst removal tailbone Surgical History 2018 Hospitalization History Dehydration & concussion 07/23/2016 Hospitalization History child 2018
--- OUTSIDE RECORDS SUMMARY | 2017-09-24 22:52 | XMS REPORT ---
Author Author EVERARDO HUNT [facility] Address [address] [place] [address] Care Team Providers Care Licensed Final Expense Agents Name Role Phone EVERARDO HUNT Unavailable PROBLEMS Type Condition ICD9-CM Code RYK06-XT Code Onset Dates Condition Status SNOMED Code Problem Obesity affecting in second trimester O99.212 Active 047486913734 Problem BMI 50.0-59.9, adult Z68.43 Active 218790904 Problem Gastro-esophageal reflux disease without esophagitis K21.9 Active 515557393 Problem Post depression F53 Active 24597719 Problem Gestational diabetes mellitus (GDM) in third trimester, gestational diabetes method of control unspecified O24.419 Active 79923209 Problem Obesity during in third trimester O99.213 Active 995059005 Problem Obesity affecting in third trimester O99.213 Active 933706683558 Problem Abdominal pannus E65 Active 6817029037430 Problem Gestational diabetes mellitus (GDM) in third trimester controlled on oral hypoglycemic drug O24.415 Active 49999666 Problem Bipolar disorder, unspecified F31.9 Active 66066077 Problem Hypertriglyceridemia E78.1 Active 500860065 Problem Anxiety disorder, unspecified F41.9 Active 739882711 Problem Lumbago with sciatica, left side M54.42 Active 000739152 Problem Lumbago with sciatica, right side M54.41 Active 692126534 Problem Other chronic pain G89.29 Active 82558041 Problem Attention deficit hyperactivity disorder F90.9 Active 504611348 Problem Suppurative hidradenitis L73.2 Active 01250064 Problem Metabolic syndrome E88.81 Active 661204016 ALLERGIES No Information ENCOUNTERS Encounter Location Date Diagnosis [facility] [address] [facility] [id number] [address] Jul, [facility] [id number] [address] June, [place] [id number] [place] [address] 80656- 1128 June, Bipolar disorder, unspecified F31.9 ; Attention deficit hyperactivity disorder F90.9 ; High risk medication use Z79.899 and BMI 50.0- 59.9, adult Z68.43 [place] [address] [id number] [place] [address] 69867- 0409 June, [place] [address] [id number] [place] [address] 72869- 9547 June, Hidradenitis suppurativa L73.2 and BMI 50.0-59.9, adult Z68.43 [place] [address] [id number] [place] [address] 94101- 5931 June, Bipolar disorder, unspecified F31.9 and BMI 50.0-59.9, adult Z68.43 [place] [id number] [place] [address] 65974- 1514 May, [place] [id number] [place] [address] 88353- 2964 May, Lumbago with sciatica, left side M54.42 ; care and examination Z39.2 ; Lumbago with sciatica, right side M54.41 ; Other chronic pain G89.29 ; BMI 50.0-59.9, adult Z68.43 ; Abdominal pannus E65 ; Suppurative hidradenitis L73.2 and Post depression F53 [place] [address] [place] [address] 57929- 3938 Apr, [place] [address] [id number] [place] [address] 62698- 3005 Apr, Abdominal pannus E65 and BMI 45.0-49.9, adult Z68.42 [place] [address] [id number] [place] [address] 23729- 8782 Apr, Screening for iron deficiency anemia Z13.0 [place] [address], [place] [address] Apr, Bipolar disorder, unspecified F31.9 [place] [address] [place] [address] 90727- 5359 07 Apr, 2017 Obesity during in third trimester O99.213 ; Third trimester Z34.93 ; Gestational diabetes mellitus (GDM) in third trimester controlled on oral hypoglycemic drug O24.415 ; 37 weeks gestation of Z3A.37 and Oligohydramnios in third trimester, single or unspecified fetus O41.03X0 [place] [address] [id number] [place] [address] 17836- 8104 28 Mar, 2017 Third trimester Z34.93 [place] [address] [place] [address] [id number] [place] [address] 22351- 0300 26 Mar, 2017 Gestational diabetes mellitus (GDM) in third trimester controlled on oral hypoglycemic drug O24.415 [place] [address] [place] [id number] [place] [address] 30925- 4656 Mar, [place] [address] [place] [address] [id number] [place] [address] 05862- 6099 Mar, Third trimester Z34.93 ; Gestational diabetes mellitus (GDM) in third trimester controlled on oral hypoglycemic drug O24.415 and 35 weeks gestation of Z3A.35 [place] [address] [place] [address] [id number] [place] [address] 48248- 7337 15 Mar, 2017 BMI 50.0-59.9, adult Z68.43 and Bipolar disorder, unspecified F31.9 [place] [address] [place] [address] 89620- 2954 13 Mar, 2017 Diet controlled gestational diabetes mellitus (GDM), antepartum O24.410 [place] [address] [place] [address] 23050- 2315 07 Mar, 2017 33 weeks gestation of Z3A.33 ; Gestational diabetes mellitus (GDM) in third trimester controlled on oral hypoglycemic drug O24.415 ; Third trimester Z34.93 and Obesity affecting in third trimester O99.213 [place] [address] [place] [address] 22455- 4145 Mar, [place] [address] [place] [address] [id number] [place] [address] 10104- 3387 24 Feb, 2017 Third trimester Z34.93 ; Encounter for immunization Z23 ; Gestational diabetes mellitus (GDM) in third trimester controlled on oral hypoglycemic drug O24.415 ; Obesity during in third trimester O99.213 and 31 weeks gestation of Z3A.31 [place] [address] [place] [address] [id number] [place] [address] 03314- 7200 Feb, [place] [address] [place] [address] [id number] [place] [address] 00173- 8069 Feb, Gestational diabetes mellitus (GDM) in third trimester, gestational diabetes method of control unspecified O24.419 [place] [address] [place] [address] [id number] [place] [address] 31159- 3997 Feb, [place] [address] [place] [address] [id number] [place] [address] 91330- 4339 Feb, [place] [address] [place] [address] [id number] [place] [address] 94804- 7870 Feb, Bipolar disorder, unspecified F31.9 and BMI 50.0-59.9, adult Z68.43 [place] [address] [place] [address] 69917- 9448 10 Feb, 2017 29 weeks gestation of Z3A.29 ; Gestational diabetes mellitus (GDM) in third trimester, gestational diabetes method of control unspecified O24.419 ; Third trimester Z34.93 ; Obesity affecting in third trimester O99.213 and BMI 50.0-59.9, adult Z68.43 [place] [address] [place] [address] 66048- 1649 Jan, Abnormal glucose tolerance test (GTT) R73.02 [place] [address] [place] [id number] [place] [address] [id number] 15 Jan, 2017 Dental examination Z01.20 [place] [address] [place] [id number] [place] [address] 65442- 1581 14 Jan, 2017 Bipolar disorder, unspecified F31.9 [place] [address] [place] [address] [id number] [place] [address] 03659- 5913 12 Jan, 2017 25 weeks gestation of Z3A.25 ; Second trimester Z34.92 ; Gastro-esophageal reflux disease without esophagitis K21.9 ; Diseases of the digestive system complicating , second trimester O99.612 ; Abnormal ultrasonic finding on screening of mother O28.3 and BMI 50.0-59.9, adult Z68.43 [place] [address] 48012- 9024 05 Jan, 2017 [place] [address] 47151- 8551 30 Dec, 2016 [place] [address] 52837- 0889 14 Dec, 2016 Dental examination Z01.20 [place] [address] 41084- 1629 14 Dec, 2016 Second trimester Z34.92 ; 21 weeks gestation of Z3A.21 and Obesity affecting in second trimester O99.212 [place] [address] [place] [id number] [place] [address] 03335- 6366 13 Dec, 2016 [place] [address] 63391- 6751 10 Dec, 2016 Lump of right breast N63.10 ; Abscess of left thigh L02.416 and BMI 45.0-49.9, adult Z68.42 [facility] [id number] [place] [address] [phone] 10 Dec, 2016 Dental examination Z01.20 [place] [address] [place] [id number] [place] [address] 25188- 7289 08 Dec, 2016 [place] [address], [place] [address]- 7106 Dec, Bipolar disorder, unspecified F31.9 [facility] [id number] [place] [address] 99563- 7961 Nov, [facility] [id number] [place] [address] 28032- 3187 Nov, [facility] [address] [place] [id number] [place] [address] 69063- 1597 Nov, 17 weeks gestation of Z3A.17 and Right non- suppurative otitis media H65.91 [facility] [address] [place] [address] [id number] [place] [address] 19377- 5692 Nov, [facility] [address] [place] [address] [id number] [place] [address] 14036- 4305 Nov, [facility] [address] [place] [id number] [place] [address] 64078- 6370 Nov, Bipolar disorder, unspecified F31.9 [facility] [id number] [place] [address] 53993- 3505 10 Nov, 2016 16 weeks gestation of Z3A.16 ; Second trimester Z34.92 and Obesity affecting in second trimester O99.212 [facility] [address] [id number] Nov, Encounter for dental examination Z01.20 [facility] [address] [place] [address] 74754- 8415 Oct, [facility] [address] [place] [address] 70255- 5559 Oct, 12 weeks gestation of Z3A.12 ; First trimester Z34.90 and Obesity affecting in first trimester O99.211 [facility] [address], [place] [address]- 8556 Sep, [facility] [id number] [place] [address] 23286- 5701 Sep, [place] [address] [place] [address] [id number] [place] [address] 55380- 2291 Sep, Bipolar disorder, unspecified F31.9 [place] [address] [place] [address] [id number] [place] [address] 79479- 7347 Sep, [place] [address] [place] [address] [id number] [place] [address] 44873- 5842 Sep, [place] [address] [place] [address] [id number] [place] [address] 34113- 0193 Sep, Normal , first Z34.00 [place] [address] [place] [address] [id number] [place] [address] 09110- 1350 Sep, Normal , first Z34.00 ; 8 weeks gestation of Z3A.08 and Obesity affecting in first trimester O99.211 [place] [address] [place] [id number] [place] [address] 36471- 3630 Sep, Anxiety disorder, unspecified F41.9 [place] [address] [place] [id number] [place] [address] 59845- 4351 Sep, [place] [address] [place] [id number] [place] [address] 78971- 1211 Sep, Encounter for test, result unknown Z32.00 [place] [address] [place] [id number] [place] [address] 16788- 0057 Aug, Anxiety disorder, unspecified F41.9 [place] [address] [place] [address] [id number] [place] [address] 45790- 2017 Jul, Suppurative hidradenitis L73.2 ; Metabolic syndrome E88.81 ; BMI 40.0-44.9, adult Z68.41 and High risk sexual behavior Z72.51 [place] [address] [place] [address] [id number] [place] [address] 23631- 3189 Jul, Anxiety disorder, unspecified F41.9 [place] [address] [place] [address] [id number] [place] [address] 04642- 4892 June, Anxiety disorder, unspecified F41.9 ; Attention deficit hyperactivity disorder F90.9 and Bipolar disorder, unspecified F31.9 [place] [address] [place] [id number] [place] [address] 18393- 4911 June, Attention deficit hyperactivity disorder F90.9 [place] [address] 54397- 3197 May, Attention deficit hyperactivity disorder F90.9 [place] [address] [place] [address] [id number] [place] [address] 43357- 4853 Apr, Attention deficit hyperactivity disorder F90.9 [place] [address] [place] [address] [id number] [place] [address] 53184- 6800 14 Mar, 2016 Abscess L02.91 and Screening for STD sexually transmitted disease Z11.3 [place] [address] [place] [id number] [place] [address] 27412- 1451 Mar, Attention deficit hyperactivity disorder F90.9 [place] [address] [place] [address] [id number] [place] [address] 51765- 9153 Feb, Attention deficit hyperactivity disorder F90.9 [place] [address] [place] [id number] [place] [address] 72448- 8836 Feb, Attention deficit disorder of adult F98.8 and DMDD ( disruptive mood dysregulation disorder) F34.81 [place] [address] [place] [id number] [place] [address] 32045- 6338 Jan, Exposure to sexually transmitted disease (STD) Z20.2 and Metabolic syndrome E88.[address] 85660- 7987 Jan, Possible exposure to STD Z20.2 ; BMI 40.0-44.9, adult Z68.41 ; Metabolic syndrome E88.81 ; Elevated fasting glucose R73.01 and Hypertriglyceridemia E78.1 [place] [address] [place] [address]- 6693 Jan, Possible exposure to STD Z20.2 ; Lumbago with sciatica, left side M54.42 ; Lumbago with sciatica, right side M54.41 ; BMI 40.0-44.9, adult Z68.41 ; Metabolic syndrome E88.81 ; Elevated fasting glucose R73.01 ; Hypertriglyceridemia E78.1 and Suppurative hidradenitis L73.2 [facility] [address] [place] [id number] [place] [address] 03185- 1999 Dec, Attention deficit hyperactivity disorder F90.9 [facility] [address] 41896- 2260 Dec, [facility] [address] [place] [id number] [place] [address] 18930- 6357 Nov, [facility] [address] 51939- 3334 Nov, [facility] [address] [id number] [place] [address] 92777- 6661 Nov, [facility] [address] [place] [id number] [place] [address] 04711- 1178 Nov, [facility] [address] [place] [address] [id number] [place] [address] 81007- 3842 30 Oct, 2015 Lumbago with sciatica, left side M54.42 and Other chronic pain G89.29 [facility] [address] [place] [id number] [place] [address] 04441- 9319 Oct, Lumbago with sciatica, left side M54.42 ; Lumbago with sciatica, right side M54.41 ; Other chronic pain G89.29 and Suppurative hidradenitis L73.2 [facility] [id number] [place] [address] 11469- 5283 Oct, [facility] [address] [place] [address] [id number] [place] [address] 57748- 7862 Sep, [facility] [address], [place] [address]- 8144 Sep, Unprotected sexual intercourse Z72.51 ; Hidradenitis suppurativa L73.2 ; Elevated fasting glucose R73.01 ; BMI 40.0-44.9, adult Z68.41 and Irregular menses N92.6 [facility] [address] [place] [id number] [place] [address] 82386- 9313 Aug, [place] [address] [place] [id number] [place] [address] 94947- 1402 Jul, Routine health maintenance Z00.00 ; Abscess L02.91 ; H/O hidradenitis suppurativa Z87.2 ; Irregular menses N92.6 ; BMI 40.0-44.9, adult Z68.41 ; Elevated fasting glucose R73.01 and Hypertriglyceridemia E78.1 [place] [address] [place] [id number] [place] [address] 82964- 3043 Jul, [facility] [address] [id number] [place] [address] 65061 -8694 Jul, Hidradenitis suppurativa L73.2 [place] [address] [place] [id number] [place] [address] 65217- 9280 Jul, Bipolar disorder, unspecified F31.9 ; Anxiety disorder, unspecified F41.9 and Attention deficit hyperactivity disorder F90.9 [place] [address] [place] [address] [id number] [place] [address] 16162- 0020 June, [place] [address] [place] [id number] [place] [address] 77663- 2534 June, [facility] [id number] [place] [address] 01844- 9119 May, [facility] [address] [place] [address] [id number] [place] [address] 13649- 9397 Apr, [facility] [address] [place] [id number] [place] [address] 20126- 5463 16 Apr, 2016 Well woman exam Z01.419 ; BMI 40.0-44.9, adult Z68.41 ; Tobacco use Z72.0 ; Family history of diabetes mellitus Z83.3 ; Hidradenitis suppurativa L73.2 ; Routine screening for STI (sexually transmitted infection) Z11.3 ; Unprotected sexual intercourse Z72.51 and Family history of breast cancer Z80.[address] 49178- 8916 Apr, Bipolar disorder, unspecified F31.9 ; Anxiety disorder, unspecified F41.9 and Attention deficit hyperactivity disorder F90.[address] 305846- 8894 Mar, [address] 04018- 4503 Feb, [address] 67528- 1975 Feb, [address] 57871- 1419 Jan, Encounter for test, result negative Z32.02 and BMI 40.0-44.9, adult Z68.41 [place] [id number] [place] [address] 89889- 2991 Jan, Bipolar disorder, unspecified F31.9 ; Anxiety disorder, unspecified F41.9 and Attn-defct hyperactivity disorder, predom inattentive type F90.0 [place] [address] [place] [id number] [place] [address] 53375- 8242 Jan, [address] 71440- 0075 Dec, [address] 64532- 7011 Dec, Bipolar disorder, unspecified F31.9 ; Attention deficit hyperactivity disorder F90.9 and Anxiety disorder, unspecified F41.9 [facility] [address], [place] [address]- 9371 27 Nov, 2014 Irregular menses N92.6 ; Unprotected sexual intercourse Z72.51 ; Screening for STD sexually transmitted disease Z11.3 ; General counseling and advice for contraceptive management Z30.09 ; Oral contraceptive pill surveillance Z30.41 ; BMI 40.0-44.9, adult Z68.41 and H/O hidradenitis suppurativa Z87.2 [facility] [id number] [place] [address] [id number] Sep, Dental examination V72.2 [facility] [id number] [place] [address] 293733- 8286 Sep, Screen for STD (sexually transmitted disease) V74.5 and General counseling on prescription of oral contraceptives V25.01 [facility] [address] [place] [address] 28598916- 6996 14 May, 2014 [facility] [id number] [place] [address] [id number]- 9387 May, [facility] [address] [place] [address] [id number]- 1637 Apr, [facility] [id number] [place] [address] [phone]- 1036 30 Apr, 2014 [facility] [address], [place] [address]- 3310 Apr, [facility] [id number] [place] [address] [id number]- 0141 Apr, [facility] [address] [address] 2095 Apr, [facility] [id number] [place] [address] [id number]- 6522 Apr, [facility] [address], [place] [address]- 2506 Apr, [facility] [id number] [place] [address]- 9540 Mar, 2014 [facility] [place] [facility] [address] [id number] [place] [address]- 1176 Mar, 2014 [facility] [place] [facility] [address] [id number] [place] [address]- 6436 Mar, 2014 [facility] [place] [facility] [address] [id number] [place] [address]- 3196 Mar, 2014 [facility] [place] [facility] [address] [id number] [place] [address]- 5948 Mar, 2014 [facility] [place] [facility] [address] [id number] [place] [address]- 8931 Mar, 2014 [facility] [place] [facility] [address] [id number] [place] [address]- 3668 Jan, [facility] [place] [facility] [address] [id number] [place] [address]- 2320 Jan, [facility] [place] [facility] [address] [id number] [place] [address]- 0745 Dec, [facility] [place] [facility] [address] [id number] [place] [address]- 0861 Dec, [facility] [place] [facility] [address] [facility] [id number] [place] [address]- 1155 Dec, [facility] [place] [facility] [address] [id number] [place] [address]- 9754 Dec, [facility] [place] [facility] [address] [id number] [place] [address]- 9675 Sep, [facility] [place] [facility] [address] [id number] [place] [address]- 3150 Sep, [facility] [place] [facility] [address] [id number] [place] 6403 Apr, [facility] [place] [facility] [address] [id number] [place] [address]- 4732 Apr, [facility] [id number] [address]- 4361 Mar, [facility] [address] 3451 Mar, [facility] [address], [place] [address]- 3201 Mar, [facility] [id number] [place] [address] 829911- 3660 Mar, [facility] [address], [place] [address]- 9142 Jan, [facility] [id number] [place] [address] 47956- 4846 Jan, [facility] [address], [place] [address]- 2291 Dec, [facility] [address], [place] [address]- 2559 Dec, [facility] [address], [place] [address]- 8606 Dec, IMMUNIZATIONS No Known Immunizations SOCIAL HISTORY Never Assessed REASON FOR VISIT [facility] Intake PLAN OF CARE VITAL SIGNS MEDICATIONS Unknown [...]
--- OUTSIDE RECORDS SUMMARY | 2017-09-24 22:53 | XMS REPORT ---
Author Author EVERARDO HUNT [facility] Address [address] [place] [address] Care Team Providers Care Card Cutter Name Role Phone EVERARDO HUNT Unavailable PROBLEMS Type Condition ICD9-CM Code UFS14-MA Code Onset Dates Condition Status SNOMED Code Problem Obesity affecting in second trimester O99.212 Active 319789599092 Problem BMI 50.0-59.9, adult Z68.43 Active 054621635 Problem Gastro-esophageal reflux disease without esophagitis K21.9 Active 547313154 Problem Post depression F53 Active 03486254 Problem Gestational diabetes mellitus (GDM) in third trimester, gestational diabetes method of control unspecified O24.419 Active 07554759 Problem Obesity during in third trimester O99.213 Active 499311804 Problem Obesity affecting in third trimester O99.213 Active 542006595581 Problem Abdominal pannus E65 Active 3429987778255 Problem Gestational diabetes mellitus (GDM) in third trimester controlled on oral hypoglycemic drug O24.415 Active 79604884 Problem Bipolar disorder, unspecified F31.9 Active 56366840 Problem Hypertriglyceridemia E78.1 Active 907336768 Problem Anxiety disorder, unspecified F41.9 Active 884597021 Problem Lumbago with sciatica, left side M54.42 Active 013476392 Problem Lumbago with sciatica, right side M54.41 Active 485468590 Problem Other chronic pain G89.29 Active 40361249 Problem Attention deficit hyperactivity disorder F90.9 Active 492261286 Problem Suppurative hidradenitis L73.2 Active 55191340 Problem Metabolic syndrome E88.81 Active 454604503 ALLERGIES No Information ENCOUNTERS Encounter Location Date Diagnosis [facility] [address] [facility] [id number] [address] Jul, [facility] [id number], [place] [address] June, [place] [id number] [place] [address] 71934- 1160 June, Bipolar disorder, unspecified F31.9 ; Attention deficit hyperactivity disorder F90.9 ; High risk medication use Z79.899 and BMI 50.0- 59.9, adult Z68.43 [place] [id number] [place] [address] 19199- 0869 June, [place] [id number] [place] [address] 97949- 2504 June, Hidradenitis suppurativa L73.2 and BMI 50.0-59.9, adult Z68.43 [place] [id number] [place] [address] 82563- 1611 June, Bipolar disorder, unspecified F31.9 and BMI 50.0-59.9, adult Z68.43 [place] [id number] [place] [address] 27403- 0595 May, [place] [id number] [place] [address] 89329- 6235 May, Lumbago with sciatica, left side M54.42 ; care and examination Z39.2 ; Lumbago with sciatica, right side M54.41 ; Other chronic pain G89.29 ; BMI 50.0-59.9, adult Z68.43 ; Abdominal pannus E65 ; Suppurative hidradenitis L73.2 and Post depression F53 [place] [address] [place] [address] 90300- 8577 Apr, [place] [id number] [place] [address] 93323- 1389 Apr, Abdominal pannus E65 and BMI 45.0-49.9, adult Z68.42 [place] [id number] [place] [address] 58556- 9227 Apr, Screening for iron deficiency anemia Z13.0 [place] [address], [place] [address] 8[address] Apr, Bipolar disorder, unspecified F31.9 [place] [address] [place] [address] 59985- 1750 07 Apr, 2017 Obesity during in third trimester O99.213 ; Third trimester Z34.93 ; Gestational diabetes mellitus (GDM) in third trimester controlled on oral hypoglycemic drug O24.415 ; 37 weeks gestation of Z3A.37 and Oligohydramnios in third trimester, single or unspecified fetus O41.03X0 [place] [id number] [place] [address] 36277- 8839 28 Mar, 2017 Third trimester Z34.93 [place] [id number] [place] [address] 39395- 3016 26 Mar, 2017 Gestational diabetes mellitus (GDM) in third trimester controlled on oral hypoglycemic drug O24.415 [place] [id number] [place] [address] 81155- 5603 Mar, [place] [id number] [place] [address] 88860- 1271 Mar, Third trimester Z34.93 ; Gestational diabetes mellitus (GDM) in third trimester controlled on oral hypoglycemic drug O24.415 and 35 weeks gestation of Z3A.35 [place] [id number] [place] [address] 52713- 6442 15 Mar, 2017 BMI 50.0-59.9, adult Z68.43 and Bipolar disorder, unspecified F31.9 [place] [id number] [place] [address] 66803- 8827 13 Mar, 2017 Diet controlled gestational diabetes mellitus (GDM), antepartum O24.410 [place] [address] [place] [address] 52599- 7278 07 Mar, 2017 33 weeks gestation of Z3A.33 ; Gestational diabetes mellitus (GDM) in third trimester controlled on oral hypoglycemic drug O24.415 ; Third trimester Z34.93 and Obesity affecting in third trimester O99.213 [place] [address] [place] [address] 93356- 8132 Mar, [place] [id number] [place] [address] 66409- 2153 24 Feb, 2017 Third trimester Z34.93 ; Encounter for immunization Z23 ; Gestational diabetes mellitus (GDM) in third trimester controlled on oral hypoglycemic drug O24.415 ; Obesity during in third trimester O99.213 and 31 weeks gestation of Z3A.31 [place] [id number] [place] [address] 73103- 1035 Feb, [place] [id number] [place] [address] 54081- 5888 Feb, Gestational diabetes mellitus (GDM) in third trimester, gestational diabetes method of control unspecified O24.419 [place] [id number] [place] [address] 33043- 8786 Feb, [place] [id number] [place] [address] 09898- 2545 Feb, [place] [id number] [place] [address] 72782- 1226 Feb, Bipolar disorder, unspecified F31.9 and BMI 50.0-59.9, adult Z68.43 [place] [address] [place] [address] 91535- 0328 10 Feb, 2017 29 weeks gestation of Z3A.29 ; Gestational diabetes mellitus (GDM) in third trimester, gestational diabetes method of control unspecified O24.419 ; Third trimester Z34.93 ; Obesity affecting in third trimester O99.213 and BMI 50.0-59.9, adult Z68.43 [place] [address] [place] [address] 60592- 9789 Jan, Abnormal glucose tolerance test (GTT) R73.02 [place] [id number] [place] [address] [phone] 15 Jan, 2017 Dental examination Z01.20 [place] [id number] [place] [address] 65056- 0842 14 Jan, 2017 Bipolar disorder, unspecified F31.9 [place] [id number] [place] [address] 91588- 6749 12 Jan, 2017 25 weeks gestation of Z3A.25 ; Second trimester Z34.92 ; Gastro-esophageal reflux disease without esophagitis K21.9 ; Diseases of the digestive system complicating , second trimester O99.612 ; Abnormal ultrasonic finding on screening of mother O28.3 and BMI 50.0-59.9, adult Z68.43 [place] [address] 05214- 7919 05 Jan, 2017 [place] [address] 62204- 1402 30 Dec, 2016 [place] [address] 37961- 9490 14 Dec, 2016 Dental examination Z01.20 [place] [address] 81898- 9714 14 Dec, 2016 Second trimester Z34.92 ; 21 weeks gestation of Z3A.21 and Obesity affecting in second trimester O99.212 [place] [id number] [place] [address] 33122- 0591 13 Dec, 2016 [place] [address] 81148- 6003 10 Dec, 2016 Lump of right breast N63.10 ; Abscess of left thigh L02.416 and BMI 45.0-49.9, adult Z68.42 [facility] [id number] [place] [address] [phone] 10 Dec, 2016 Dental examination Z01.20 [place] [id number] [place] [address] 69758- 8514 08 Dec, 2016 [place] [address] [address] 7717 Dec, Bipolar disorder, unspecified F31.9 [facility] [id number] [place] [address] 81585- 9103 Nov, [facility] [id number] [place] [address] 29990- 2035 Nov, [facility] [id number] [place] [address] 15656- 6362 Nov, 17 weeks gestation of Z3A.17 and Right non- suppurative otitis media H65.91 [facility] [id number] [place] [address] 94505- 6208 Nov, [facility] [id number] [place] [address] 79798- 9906 Nov, [facility] [id number] [place] [address] 98431- 0515 Nov, Bipolar disorder, unspecified F31.9 [facility] [id number] [place] [address] 35657- 6809 10 Nov, 2016 16 weeks gestation of Z3A.16 ; Second trimester Z34.92 and Obesity affecting in second trimester O99.212 [facility] [address] [id number] Nov, Encounter for dental examination Z01.20 [facility] [address] [place] [address] 91264- 9418 Oct, [facility] [address] [place] [address] 80795- 0855 Oct, 12 weeks gestation of Z3A.12 ; First trimester Z34.90 and Obesity affecting in first trimester O99.211 [facility] [address], [place] [address]- 7546 Sep, [facility] [id number] [place] [address] 66972- 4012 Sep, [place] [id number] [place] [address] 54151- 6180 Sep, Bipolar disorder, unspecified F31.9 [place] [id number] [place] [address] 68247- 8705 Sep, [place] [id number] [place] [address] 32678- 8631 Sep, [place] [id number] [place] [address] 29177- 8184 Sep, Normal , first Z34.00 [place] [id number] [place] [address] 12785- 5181 Sep, Normal , first Z34.00 ; 8 weeks gestation of Z3A.08 and Obesity affecting in first trimester O99.211 [place] [id number] [place] [address] 80632- 7533 Sep, Anxiety disorder, unspecified F41.9 [place] [id number] [place] [address] 45151- 5943 Sep, [place] [id number] [place] [address] 04812- 2424 Sep, Encounter for test, result unknown Z32.00 [place] [id number] [place] [address] 20810- 3780 Aug, Anxiety disorder, unspecified F41.9 [place] [id number] [place] [address] 62884- 5954 Jul, Suppurative hidradenitis L73.2 ; Metabolic syndrome E88.81 ; BMI 40.0-44.9, adult Z68.41 and High risk sexual behavior Z72.51 [place] [id number] [place] [address] 24821- 6164 Jul, Anxiety disorder, unspecified F41.9 [place] [id number] [place] [address] 11837- 2022 June, Anxiety disorder, unspecified F41.9 ; Attention deficit hyperactivity disorder F90.9 and Bipolar disorder, unspecified F31.9 [place] [id number] [place] [address] 93151- 9957 June, Attention deficit hyperactivity disorder F90.9 [place] [address] 28368- 1759 May, Attention deficit hyperactivity disorder F90.9 [place] [id number] [place] [address] 22319- 5419 Apr, Attention deficit hyperactivity disorder F90.9 [place] [id number] [place] [address] 09823- 8122 14 Mar, 2016 Abscess L02.91 and Screening for STD sexually transmitted disease Z11.3 [place] [id number] [place] [address] 64140- 4572 Mar, Attention deficit hyperactivity disorder F90.9 [place] [id number] [place] [address] 21077- 1750 Feb, Attention deficit hyperactivity disorder F90.9 [place] [id number] [place] [address] 65599- 2319 Feb, Attention deficit disorder of adult F98.8 and DMDD ( disruptive mood dysregulation disorder) F34.81 [place] [id number] [place] [address] 44581- 4985 Jan, Exposure to sexually transmitted disease (STD) Z20.2 and Metabolic syndrome E88.[address] 6[address]16- 3911 Jan, Possible exposure to STD Z20.2 ; BMI 40.0-44.9, adult Z68.41 ; Metabolic syndrome E88.81 ; Elevated fasting glucose R73.01 and Hypertriglyceridemia E78.1 [place] [address] [place] [address]- 0018 Jan, Possible exposure to STD Z20.2 ; Lumbago with sciatica, left side M54.42 ; Lumbago with sciatica, right side M54.41 ; BMI 40.0-44.9, adult Z68.41 ; Metabolic syndrome E88.81 ; Elevated fasting glucose R73.01 ; Hypertriglyceridemia E78.1 and Suppurative hidradenitis L73.2 [facility] [id number] [place] [address] 45229- 5197 Dec, Attention deficit hyperactivity disorder F90.9 [facility] [address] 65355- 6662 Dec, [facility] [id number] [place] [address] 35625- 8726 Nov, [facility] [address] 42355- 2509 Nov, [facility] [id number] [place] [address] 76605- 5260 Nov, [facility] [id number] [place] [address] 94805- 1564 Nov, [facility] [id number] [place] [address] 59360- 5121 30 Oct, 2015 Lumbago with sciatica, left side M54.42 and Other chronic pain G89.29 [facility] [id number] [place] [address] 59718- 6071 Oct, Lumbago with sciatica, left side M54.42 ; Lumbago with sciatica, right side M54.41 ; Other chronic pain G89.29 and Suppurative hidradenitis L73.2 [facility] [id number] [place] [address] 73116- 8042 Oct, [facility] [id number] [place] [address] 66431- 6155 Sep, [facility] [address], [place] [address]- 5077 Sep, Unprotected sexual intercourse Z72.51 ; Hidradenitis suppurativa L73.2 ; Elevated fasting glucose R73.01 ; BMI 40.0-44.9, adult Z68.41 and Irregular menses N92.6 [facility] [id number] [place] [address] 36252- 2702 Aug, [place] [id number] [place] [address] 81291- 5937 Jul, Routine health maintenance Z00.00 ; Abscess L02.91 ; H/O hidradenitis suppurativa Z87.2 ; Irregular menses N92.6 ; BMI 40.0-44.9, adult Z68.41 ; Elevated fasting glucose R73.01 and Hypertriglyceridemia E78.1 [place] [id number] [place] [address] 04579- 3403 Jul, [facility] [id number] [place] [address] 52964 -1579 Jul, Hidradenitis suppurativa L73.2 [place] [id number] [place] [address] 91720- 8244 Jul, Bipolar disorder, unspecified F31.9 ; Anxiety disorder, unspecified F41.9 and Attention deficit hyperactivity disorder F90.9 [place] [id number] [place] [address] 40339- 7947 June, [place] [id number] [place] [address] 45195- 5904 June, [facility] [id number] [place] [address] 57957- 8613 May, [facility] [id number] [place] [address] 36564- 8290 Apr, [facility] [id number] [place] [address] 42412- 0538 16 Apr, 2016 Well woman exam Z01.419 ; BMI 40.0-44.9, adult Z68.41 ; Tobacco use Z72.0 ; Family history of diabetes mellitus Z83.3 ; Hidradenitis suppurativa L73.2 ; Routine screening for STI (sexually transmitted infection) Z11.3 ; Unprotected sexual intercourse Z72.51 and Family history of breast cancer Z80.[address] 74156- 9830 Apr, Bipolar disorder, unspecified F31.9 ; Anxiety disorder, unspecified F41.9 and Attention deficit hyperactivity disorder F90.[address] 100086- 0369 Mar, [address] 29010- 2722 Feb, [address] 14194- 6633 Feb, [address] 26295- 5706 Jan, Encounter for test, result negative Z32.02 and BMI 40.0-44.9, adult Z68.41 [place] [id number] [place] [address] 88582- 1980 Jan, Bipolar disorder, unspecified F31.9 ; Anxiety disorder, unspecified F41.9 and Attn-defct hyperactivity disorder, predom inattentive type F90.0 [place] [id number] [place] [address] 19275- 6362 Jan, [address] 46615- 0000 Dec, [address] 41968- 2176 Dec, Bipolar disorder, unspecified F31.9 ; Attention deficit hyperactivity disorder F90.9 and Anxiety disorder, unspecified F41.9 [facility] [address], [place] [address]- 1319 27 Nov, 2014 Irregular menses N92.6 ; Unprotected sexual intercourse Z72.51 ; Screening for STD sexually transmitted disease Z11.3 ; General counseling and advice for contraceptive management Z30.09 ; Oral contraceptive pill surveillance Z30.41 ; BMI 40.0-44.9, adult Z68.41 and H/O hidradenitis suppurativa Z87.2 [facility] [id number] [place] [address] [id number] Sep, Dental examination V72.2 [facility] [id number] [place] [address] 858142- 0856 Sep, Screen for STD (sexually transmitted disease) V74.5 and General counseling on prescription of oral contraceptives V25.01 [facility] [address] [place] [address] [id number]- 6176 14 May, 2014 [facility] [id number] [place] [address] [id number]- 7397 May, [facility] [address] [place] [address] [phone]- 2959 Apr, [facility] [id number] [place] [address] [phone]- 6981 30 Apr, 2014 [facility] [address], [place] [address]- 7482 Apr, [facility] [id number] [place] [address] [id number]- 3535 Apr, [facility] [address] [address] 9737 Apr, [facility] [address] [place] [address] [phone]- 4074 Apr, [facility] [address], [place] [address]- 9033 Apr, [facility] [id number] [address]- 9021 Mar, 2014 [facility] [place] [facility] [address] [id number] [place] [address]- 5476 Mar, 2014 [facility] [place] [facility] [address] [id number] [place] [address]- 9246 Mar, 2014 [facility] [place] [facility] [address] [id number] [place] [address]- 2566 Mar, 2014 [facility] [place] [facility] [address] [id number] [place] [address]- 0811 Mar, 2014 [facility] [place] [facility] [address] [id number] [place] [address]- 8446 Mar, 2014 [facility] [place] [facility] [address] [id number] [place] [address]- 4959 Jan, [facility] [place] [facility] [address] [id number] [place] [address]- 1232 Jan, [facility] [place] [facility] [address] [id number] [place] [address]- 7710 Dec, [facility] [place] [facility] [address] [id number] [place] [address]- 7022 Dec, [facility] [place] [facility] [address] [facility] [id number] [place] [address]- 6253 Dec, [facility] [place] [facility] [address] [id number] [place] [address]- 5928 Dec, [facility] [place] [facility] [address] [id number] [place] [address]- 4568 Sep, [facility] [place] [facility] [address] [id number] [place] [address]- 2178 Sep, [facility] [place] [facility] [address] [id number] [place] 6346 Apr, [facility] [place] [facility] [address] [id number] [place] [address]- 5618 Apr, [facility] [id number] [address]- 1750 Mar, [facility] [address] 3950 Mar, [facility] [address], [place] [address]- 9959 Mar, [facility] [address] 1356 Mar, [facility] [address], [place] [address]- 9778 Jan, [facility] [address] [place] [address] 37516- 3001 Jan, [facility] [address], [place] [address]- 2679 Dec, [facility] [address], [place] [address]- 8486 Dec, [facility] [address], [place] [address]- 8504 Dec, IMMUNIZATIONS No Known Immunizations SOCIAL HISTORY Never Assessed REASON FOR VISIT OB phone call PLAN OF CARE VITAL SIGNS MEDICATIONS [...]
--- OUTSIDE RECORDS SUMMARY | 2017-09-24 22:53 | XMS REPORT ---
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 Active [id number] Problem Anxiety disorder, unspecified F41.9 Active 301081793 Problem Lesion of sciatic nerve, left lower limb G57.02 Active 387206979554315 Problem Abdominal pannus E65 Active 2398241674827 Problem Obesity during in third trimester O99.213 Active 100019502 Problem Post depression F53 Active 80789903 Problem Gestational diabetes mellitus (GDM) in third trimester, gestational diabetes method of control unspecified O24.419 Active 34388246 Problem Lumbago with sciatica, left side M54.42 Active 137413187 Problem Lumbago with sciatica, right side M54.41 Active 157405204 Problem Bipolar disorder, unspecified F31.9 Active 03337124 Problem Hypertriglyceridemia E78.1 Active 770356507 Problem Attention deficit hyperactivity disorder F90.9 Active 170959877 Problem Metabolic syndrome E88.81 Active 125270977 Problem Other chronic pain G89.29 Active 22213866 Problem Obesity affecting in second trimester O99.212 Active 800528567056 Problem Suppurative hidradenitis L73.2 Active 54744437 Problem Gastro-esophageal reflux disease without esophagitis K21.9 Active 942086803 ALLERGIES Substance Reaction Event Type Date Status Bees anaphylaxis Non Drug Allergy Feb, Active ENCOUNTERS Encounter Location Date Diagnosis [place] [address] [address] Jul, [place] [address] [place] [id number] [place] [address] 86645- 8557 14 Jul, 2017 Somatic dysfunction of pelvis region M99.05 ; Somatic dysfunction of sacral region M99.04 ; Somatic dysfunction of lumbar region M99.03 ; Lesion of sciatic nerve, left lower limb G57.02 ; Lesion of sciatic nerve, 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 and BMI 50.0-59.9, adult Z68.43 [place] [address] [place] [address] 58404- 5863 June, [place] [address] [place] [id number] [place] [address] 07554- 0046 June, Bipolar disorder, unspecified F31.9 ; Attention deficit hyperactivity disorder F90.9 ; High risk medication use Z79.899 and BMI 50.0- 59.9, adult Z68.43 [place] [address] [address] [address] June, [place] [address] [place] [id number] [place] [address] 22932- 1648 June, Hidradenitis suppurativa L73.2 and BMI 50.0-59.9, adult Z68.43 [place] [address] [place] [address] 91266- 7717 June, Bipolar disorder, unspecified F31.9 and BMI 50.0-59.9, adult Z68.43 [place] [address], [place] [address] 89[address] May, [place] [address] [place] [id number] [place] [address] 32241- 2370 May, Lumbago with sciatica, left side M54.42 ; care and examination Z39.2 ; Lumbago with sciatica, right side M54.41 ; Other chronic pain G89.29 ; BMI 50.0-59.9, adult Z68.43 ; Abdominal pannus E65 ; Suppurative hidradenitis L73.2 and Post depression F53 [place] [address] [id number] [place] [address] 41997- 5823 29 Apr, 2017 [place] [address] [place] [id number] [place] [address] 32181- 9536 21 Apr, 2017 Abdominal pannus E65 and BMI 45.0-49.9, adult Z68.42 [place] [address] [place] [id number] [place] [address] 47303- 5585 20 Apr, 2017 Screening for iron deficiency anemia Z13.0 [place] [address] [place] [id number] [place] [address] 94764- 9588 15 Apr, 2017 Bipolar disorder, unspecified F31.9 [place] [address] [place] [id number] [place] [address] 75145- 1143 07 Apr, 2017 Obesity during in third trimester O99.213 ; Third trimester Z34.93 ; Gestational diabetes mellitus (GDM) in third trimester controlled on oral hypoglycemic drug O24.415 ; 37 weeks gestation of Z3A.37 and Oligohydramnios in third trimester, single or unspecified fetus O41.03X0 [place] [address] [place] [address] 29730- 4592 28 Mar, 2017 Third trimester Z34.93 [place] [address] [place] [address] 39941- 5510 Mar, Gestational diabetes mellitus (GDM) in third trimester controlled on oral hypoglycemic drug O24.415 [place] [address] [place] [address] 79434- 5263 Mar, [place] [address] [place] [id number] [place] [address] 49220- 2901 Mar, Third trimester Z34.93 ; Gestational diabetes mellitus (GDM) in third trimester controlled on oral hypoglycemic drug O24.415 and 35 weeks gestation of Z3A.35 [place] [address] [place] [id number] [place] [address] 72870- 2739 15 Mar, 2017 BMI 50.0-59.9, adult Z68.43 and Bipolar disorder, unspecified F31.9 [place] [address] [place] [id number] [place] [address] 17041- 8203 13 Mar, 2017 Diet controlled gestational diabetes mellitus (GDM), antepartum O24.410 [place] [address] [place] [id number] [place] [address] 30645- 8936 07 Mar, 2017 33 weeks gestation of Z3A.33 ; Gestational diabetes mellitus (GDM) in third trimester controlled on oral hypoglycemic drug O24.415 ; Third trimester Z34.93 and Obesity affecting in third trimester O99.213 [place] [address] [place] [address] [place] [address] 57340- 0070 Mar, [place] [address] 48692- 4831 Feb, Third trimester Z34.93 ; Encounter for immunization Z23 ; Gestational diabetes mellitus (GDM) in third trimester controlled on oral hypoglycemic drug O24.415 ; Obesity during in third trimester O99.213 and 31 weeks gestation of Z3A.31 [place] [address] [place] [id number] [place] [address] 96630- 4987 Feb, [place] [address] [place] [id number] [place] [address] 48919- 6524 Feb, Gestational diabetes mellitus (GDM) in third trimester, gestational diabetes method of control unspecified O24.419 [place] [address] [place] [id number] [place] [address] 04502- 0345 Feb, [place] [address] [place] [id number] [place] [address] 55924- 7190 Feb, [place] [address] [place] [address] [place] [address] 65395- 6845 Feb, Bipolar disorder, unspecified F31.9 and BMI 50.0-59.9, adult Z68.43 [place] [address], [place] [address]- 5542 10 Feb, 2017 29 weeks gestation of Z3A.29 ; Gestational diabetes mellitus (GDM) in third trimester, gestational diabetes method of control unspecified O24.419 ; Third trimester Z34.93 ; Obesity affecting in third trimester O99.213 and BMI 50.0-59.9, adult Z68.43 [place] [id number] [place] [address] 85387- 5167 15 Jan, 2017 Abnormal glucose tolerance test (GTT) R73.02 [facility] [id number] [place] [address] [phone] 15 Jan, 2017 Dental examination Z01.20 [place] [id number] [place] [address] 38541- 8106 14 Jan, 2017 Bipolar disorder, unspecified F31.9 [place] [id number] [place] [address] 55257- 1615 12 Jan, 2017 25 weeks gestation of Z3A.25 ; Second trimester Z34.92 ; Gastro-esophageal reflux disease without esophagitis K21.9 ; Diseases of the digestive system complicating , second trimester O99.612 ; Abnormal ultrasonic finding on screening of mother O28.3 and BMI 50.0-59.9, adult Z68.43 [place] [address] [place] [address] 98092- 6934 05 Jan, 2017 [place] [address] [place] [id number] [place] [address] 15284- 7903 Dec, [place] [address] [place] [id number] [place] [address] 71118- 7624 14 Dec, 2016 Dental examination Z01.20 [place] [address] [place] [id number] [place] [address] 94327- 5945 14 Dec, 2016 Second trimester Z34.92 ; 21 weeks gestation of Z3A.21 and Obesity affecting in second trimester O99.212 [place] [address] [place] [address] [place] [address] 13570- 8411 Dec, [facility] [id number] [place] [address] 31392- 3491 Dec, Lump of right breast N63.10 ; Abscess of left thigh L02.416 and BMI 45.0-49.9, adult Z68.42 [facility] [id number] [place] [address] [id number] Dec, Dental examination Z01.20 [facility] [address] [place] [id number] [place] [address] 84535- 1106 08 Dec, 2016 [place] [address] 93489- 1389 Dec, Bipolar disorder, unspecified F31.9 [facility] [address] [place] [id number] [place] [address] 73129- 9841 24 Nov, 2016 [facility] [address] [place] [id number] [place] [address] 93664- 4485 Nov, [facility] [address] [place] [id number] [place] [address] 86867- 1528 Nov, 17 weeks gestation of Z3A.17 and Right non- suppurative otitis media H65.91 [facility] [address] [place] [id number] [place] [address] 76718- 0670 Nov, [facility] [address] [place] [id number] [place] [address] 02572- 4804 Nov, [facility] [address] [place] [id number] [place] [address] 90632- 0972 Nov, Bipolar disorder, unspecified F31.9 [facility] [address] [place] [id number] [place] [address] 21436- 8736 Nov, 16 weeks gestation of Z3A.16 ; Second trimester Z34.92 and Obesity affecting in second trimester O99.212 [facility] [id number] [place] [address] [id number] Nov, Encounter for dental examination Z01.20 [facility] [address], [place] [address]- 5849 Oct, [facility] [address] [place] [id number] [place] [address] 19243- 3366 Oct, 12 weeks gestation of Z3A.12 ; First trimester Z34.90 and Obesity affecting in first trimester O99.211 [facility] [address] [id number] [place] [address] 45656- 6532 Sep, [facility] [address] [place] [address] 38284- 3308 Sep, [facility] [address] [place] [id number] [place] [address] 83069- 4146 Sep, Bipolar disorder, unspecified F31.9 [facility] [address] [place] [id number] [place] [address] 86717- 6918 Sep, [facility] [address] [place] [address] 05486- 3879 Sep, [facility] [address] [id number] [place] [address] 80146- 4628 Sep, Normal , first Z34.00 [facility] [address] [place] [address] 27808- 0069 Sep, Normal , first Z34.00 ; 8 weeks gestation of Z3A.08 and Obesity affecting in first trimester O99.211 [facility] [address], [place] [address]- 1836 Sep, Anxiety disorder, unspecified F41.9 [facility] [address] [place] [id number] [place] [address] 51306- 0701 Sep, [facility] [address] [place] [address] 94113- 3583 Sep, Encounter for test, result unknown Z32.00 [place] [address] [place] [address] 97033- 4239 Aug, Anxiety disorder, unspecified F41.9 [place] [address] [place] [id number] [place] [address] 07991- 9883 Jul, Suppurative hidradenitis L73.2 ; Metabolic syndrome E88.81 ; BMI 40.0-44.9, adult Z68.41 and High risk sexual behavior Z72.51 [place] [address] [place] [id number] [place] [address] 88956- 3700 Jul, Anxiety disorder, unspecified F41.9 [place] [address] [place] [address] [place] [address] 98327- 4078 June, Anxiety disorder, unspecified F41.9 ; Attention deficit hyperactivity disorder F90.9 and Bipolar disorder, unspecified F31.9 [place] [address] [place] [address] [place] [address] 01674- 1877 June, Attention deficit hyperactivity disorder F90.9 [place] [address] [place] [address] [place] [address] 61312- 5577 May, Attention deficit hyperactivity disorder F90.9 [place] [address] [place] [address] [place] [address] 21313- 2718 Apr, Attention deficit hyperactivity disorder F90.9 [place] [address] [place] [address] [place] [address] 92866- 5766 14 Mar, 2016 Abscess L02.91 and Screening for STD sexually transmitted disease Z11.3 [place] [address] [place] [address] [place] [address] 83230- 1054 03 Mar, 2016 Attention deficit hyperactivity disorder F90.9 [place] [address] [place] [address] [place] [address] 99884- 4695 Feb, Attention deficit hyperactivity disorder F90.9 [place] [address] [place] [address] 32550- 9442 Feb, Attention deficit disorder of adult F98.8 and DMDD ( disruptive mood dysregulation disorder) F34.81 [facility] [address], [place] [address]- 7060 Jan, Exposure to sexually transmitted disease (STD) Z20.2 and Metabolic syndrome E88.81 [place] [address] [place] [address] [place] [address] 75491- 2777 Jan, Possible exposure to STD Z20.2 ; BMI 40.0-44.9, adult Z68.41 ; Metabolic syndrome E88.81 ; Elevated fasting glucose R73.01 and Hypertriglyceridemia E78.1 [place] [address] [place] [address] [place] [address] 15627- 1818 Jan, Possible exposure to STD Z20.2 ; Lumbago with sciatica, left side M54.42 ; Lumbago with sciatica, right side M54.41 ; BMI 40.0-44.9, adult Z68.41 ; Metabolic syndrome E88.81 ; Elevated fasting glucose R73.01 ; Hypertriglyceridemia E78.1 and Suppurative hidradenitis L73.2 [place] [address] [place] [address] [place] [address] 92854- 4858 Dec, Attention deficit hyperactivity disorder F90.9 [facility] [address] [id number] [place] [address] 50539- 8180 Dec, [place] [address] [place] [id number] [place] [address] 20799- 9573 Nov, [place] [address] [place] [id number] [place] [address] 87129- 3676 Nov, [facility] [address] [place] [id number] [place] [address] 60153- 9466 Nov, [facility] [address] [place] [id number] [place] [address] 21773- 5491 Nov, [facility] [address] [place] [id number] [place] [address] 31727- 0591 30 Oct, 2015 Lumbago with sciatica, left side M54.42 and Other chronic pain G89.29 [place] [address] [place] [address] 58785- 6950 Oct, Lumbago with sciatica, left side M54.42 ; Lumbago with sciatica, right side M54.41 ; Other chronic pain G89.29 and Suppurative hidradenitis L73.2 [place] [address] [place] [address] [place] [address] 88544- 9028 Oct, [place] [address] [place] [address] [place] [address] 93429- 2961 Sep, [place] [address] [place] [address] [place] [address] 25916- 8607 Sep, Unprotected sexual intercourse Z72.51 ; Hidradenitis suppurativa L73.2 ; Elevated fasting glucose R73.01 ; BMI 40.0-44.9, adult Z68.41 and Irregular menses N92.6 [place] [address] [place] [address] [place] [address] 24349- 4414 Aug, [place] [address] [place] [address] [place] [address] 87753- 9556 Jul, Routine health maintenance Z00.00 ; Abscess L02.91 ; H/O hidradenitis suppurativa Z87.2 ; Irregular menses N92.6 ; BMI 40.0-44.9, adult Z68.41 ; Elevated fasting glucose R73.01 and Hypertriglyceridemia E78.1 [place] [address] [place] [address] 48507- 5054 Jul, [facility] [address] [place] [address] 28943 -4449 Jul, Hidradenitis suppurativa L73.2 [place] [address] [place] [address] [place] [address] 12745- 8544 Jul, Bipolar disorder, unspecified F31.9 ; Anxiety disorder, unspecified F41.9 and Attention deficit hyperactivity disorder F90.9 [place] [address], [place] [address]- 0797 June, [place] [address] [place] [id number] [place] [address] 45824- 0012 June, [place] [address] [place] [address] 74593- 9166 May, [place] [address] [place] [address] [place] [address] 67315- 9957 Apr, [place] [address] [place] [address] [place] [address] 61357- 1623 Apr, Well woman exam Z01.419 ; BMI 40.0-44.9, adult Z68.41 ; Tobacco use Z72.0 ; Family history of diabetes mellitus Z83.3 ; Hidradenitis suppurativa L73.2 ; Routine screening for STI (sexually transmitted infection) Z11.3 ; Unprotected sexual intercourse Z72.51 and Family history of breast cancer Z80.3 [place] [address] [place] [address] 95592- 3304 Apr, Bipolar disorder, unspecified F31.9 ; Anxiety disorder, unspecified F41.9 and Attention deficit hyperactivity disorder F90.9 [place] [address], [place] [address]- 0108 Mar, [place] [address], [place] [address]- 9103 Feb, [place] [address], [place] [address]- 5119 Feb, [place] [address] [place] [id number] [place] [address] 17888- 2715 Jan, Encounter for test, result negative Z32.02 and BMI 40.0-44.9, adult Z68.41 [place] [address], [place] [address]- 9139 Jan, Bipolar disorder, unspecified F31.9 ; Anxiety disorder, unspecified F41.9 and Attn-defct hyperactivity disorder, predom inattentive type F90.0 [facility] [id number] [place] [address] 10965- 3129 Jan, [facility] [address] [id number] [place] [address] 66287- 8781 Dec, [place] [address] 49278- 2148 Dec, Bipolar disorder, unspecified F31.9 ; Attention deficit hyperactivity disorder F90.9 and Anxiety disorder, unspecified F41.9 [place] [address] 60947- 6243 Nov, Irregular menses N92.6 ; Unprotected sexual intercourse Z72.51 ; Screening for STD sexually transmitted disease Z11.3 ; General counseling and advice for contraceptive management Z30.09 ; Oral contraceptive pill surveillance Z30.41 ; BMI 40.0-44.9, adult Z68.41 and H/O hidradenitis suppurativa Z87.2 [facility] [id number] [place] [address] [phone] Sep, Dental examination V72.2 [place] [address] [id number] [place] [address] 94000- 7772 Sep, Screen for STD (sexually transmitted disease) V74.5 and General counseling on prescription of oral contraceptives V25.01 [place] [address] [id number] [place] [address] 17255- 2180 May, [place] [address] [place] [id number] [place] [address] 74462- 7961 May, [place] [address] [id number] [place] [address] 97318- 7742 Apr, [facility] [id number] [place] [address] 57733- 2439 Apr, [place] [address] [place] [address]- 2317 10 Apr, 2014 [facility] [place] [facility] [address] [id number] [place] [address]- 0878 10 Apr, 2014 [facility] [place] [facility] [address] [id number] [place] [address]- 8701 10 Apr, 2014 [facility] [place] [facility] [address] [id number] [place] [address]- 8485 10 Apr, 2014 [facility] [place] [facility] [address] [id number] [place] [address]- 2865 Apr, 2014 [facility] [place] [facility] [address] [id number] [place] [address]- 5470 Mar, 2014 [facility] [place] [facility] [address] [id number] [place] [address]- 5240 Mar, 2014 [facility] [place] [facility] [address] [facility] [id number] [place] [address]- 0023 Mar, 2014 [facility] [place] [facility] [address] [id number] [place] [address]- 8380 Mar, 2014 [facility] [place] [facility] [address] [facility] [id number] [place] [address]- 5827 Mar, [facility] [place] [facility] [address] [facility] [id number] [place] [address]- 0581 Mar, 2014 [facility] [place] [facility] [address] [facility] [id number] [place] [address]- 0726 Jan, [facility] [place] [facility] [address] [id number] [place] [address]- 4369 Jan, [facility] [place] [facility] [address] [id number] [place] [address]- 2160 Dec, [facility] [place] [facility] [address] [facility] [id number] [place] [address]- 4495 Dec, [facility] [place] [facility] [address] [facility] [id number] [place] [address]- 6684 Dec, [facility] [id number] [address]- 7037 Dec, [facility] [address] [place] [address]- 0577 Sep, [facility] [address], [place] [address]- 2156 Sep, [facility] [address] [place] [address]- 3499 Apr, [facility] [id number] [place] [address]- 6830 Apr, [facility] [address], [place] [address]- 6387 Mar, [facility] [address] [place] [address]- 5986 Mar, [facility] [address], [place] [address]- 4746 Mar, [facility] [id number], [place] [address] Mar, [facility] [id number], [place] [address] Jan, [facility] [id number] [address] Jan, [facility] [id number], [place] [address] Dec, [facility] [id number] [address] Dec, [facility] [id number] [address] Dec, IMMUNIZATIONS No Known Immunizations SOCIAL HISTORY Never Assessed REASON FOR VISIT f/u----DBennettFAISAL PLAN OF CARE Activity Details Follow Up 4 Weeks Reason: VITAL SIGNS Height 64 in 2017-02-27 Weight 296 lbs 2017-02-27 Heart Rate 90 bpm 2017-02-27 Respiratory Rate 20 2017-02-27 BMI 50.80 kg/m2 2017-02-27 Blood pressure systolic 124 mmHg 2017-02-27 Blood pressure diastolic 70 mmHg 2017-02-27 MEDICATIONS Medication Instructions Dosage Frequency Start Date End Date Duration Status Blood Glucose Test Strip test strips test blood sugar Feb, Active Vitamins - (Dis) Active Ranitidine HCl 75 MG Orally Twice a day 1 tablet as needed 12h 12 Jan, 2017 Active Blood Glucose Monitor System w/Device as directed Feb, Active Lancets - test blood sugar Feb, Active RESULTS No Results PROCEDURES Procedure Date Ordered Result Body Site Psychotherapy, patient &/family, with E&M, 30 minutes, established patient Feb 27, 2017 INSTRUCTIONS MEDICATIONS ADMINISTERED No Known Medications MEDICAL (GENERAL) HISTORY Type Description Date Medical History Hidradenitis Supprativa Medical History Bipolar Disorder Medical History ADHD Surgical History pilonidal cyst removal tailbone Surgical History 2017 Hospitalization History Dehydration & concussion 07/23/2016 Hospitalization History child 2018
--- OUTSIDE RECORDS SUMMARY | 2017-09-24 22:54 | XMS REPORT ---
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 Active [id number] Problem Anxiety disorder, unspecified F41.9 Active 200647288 Problem Lesion of sciatic nerve, left lower limb G57.02 Active 302542297386533 Problem Abdominal pannus E65 Active 8287949611097 Problem Obesity during in third trimester O99.213 Active 358656614 Problem Post depression F53 Active 90413385 Problem Gestational diabetes mellitus (GDM) in third trimester, gestational diabetes method of control unspecified O24.419 Active 11291041 Problem Lumbago with sciatica, left side M54.42 Active 936429920 Problem Lumbago with sciatica, right side M54.41 Active 997995686 Problem Bipolar disorder, unspecified F31.9 Active 73719652 Problem Hypertriglyceridemia E78.1 Active 189939786 Problem Attention deficit hyperactivity disorder F90.9 Active 545300024 Problem Metabolic syndrome E88.81 Active 712513760 Problem Other chronic pain G89.29 Active 02782883 Problem Obesity affecting in second trimester O99.212 Active 799680051226 Problem Suppurative hidradenitis L73.2 Active 23022644 Problem Gastro-esophageal reflux disease without esophagitis K21.9 Active 757937710 ALLERGIES No Information ENCOUNTERS Encounter Location Date Diagnosis [facility] [address] [facility] [id number] [address] Jul, [place] [id number] [place] [address] 25713- 4069 Jul, Somatic dysfunction of pelvis region M99.05 ; Somatic dysfunction of sacral region M99.04 ; Somatic dysfunction of lumbar region M99.03 ; Lesion of sciatic nerve, left lower limb G57.02 ; Lesion of sciatic nerve, 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 and BMI 50.0-59.9, adult Z68.43 [place] [address] [place] [id number] [place] [address] 14947- 5956 June, [place] [address] [place] [id number] [place] [address] 23790- 6212 June, Bipolar disorder, unspecified F31.9 ; Attention deficit hyperactivity disorder F90.9 ; High risk medication use Z79.899 and BMI 50.0- 59.9, adult Z68.43 [place] [address] [place] [id number] [place] [address] 31813- 6636 June, [place] [id number] [place] [address] 33611- 6615 June, Hidradenitis suppurativa L73.2 and BMI 50.0-59.9, adult Z68.43 [place] [id number] [place] [address] 63553- 2810 June, Bipolar disorder, unspecified F31.9 and BMI 50.0-59.9, adult Z68.43 [place] [address] [address] May, [place] [address] [place] [id number] [place] [address] 62048- 8972 May, Lumbago with sciatica, left side M54.42 ; care and examination Z39.2 ; Lumbago with sciatica, right side M54.41 ; Other chronic pain G89.29 ; BMI 50.0-59.9, adult Z68.43 ; Abdominal pannus E65 ; Suppurative hidradenitis L73.2 and Post depression F53 [place] [address] [place] [id number] [place] [address] 43067- 6123 Apr, [place] [address] [place] [id number] [place] [address] 24866- 5730 21 Apr, 2017 Abdominal pannus E65 and BMI 45.0-49.9, adult Z68.42 [place] [address] [place] [id number] [place] [address] 47131- 3955 20 Apr, 2017 Screening for iron deficiency anemia Z13.0 [place] [address] [place] [id number] [place] [address] 79632- 2218 15 Apr, 2017 Bipolar disorder, unspecified F31.9 [place] [address] [place] [id number] [place] [address] 78017- 3686 07 Apr, 2017 Obesity during in third trimester O99.213 ; Third trimester Z34.93 ; Gestational diabetes mellitus (GDM) in third trimester controlled on oral hypoglycemic drug O24.415 ; 37 weeks gestation of Z3A.37 and Oligohydramnios in third trimester, single or unspecified fetus O41.03X0 [place] [address] [place] [id number] [place] [address] 96361- 9057 28 Mar, 2017 Third trimester Z34.93 [place] [address] [place] [id number] [place] [address] 01936- 1014 Mar, Gestational diabetes mellitus (GDM) in third trimester controlled on oral hypoglycemic drug O24.415 [place] [id number] [place] [address] 39823- 7858 Mar, [place] [address] [place] [id number] [place] [address] 85588- 0521 Mar, Third trimester Z34.93 ; Gestational diabetes mellitus (GDM) in third trimester controlled on oral hypoglycemic drug O24.415 and 35 weeks gestation of Z3A.35 [place] [address] [place] [id number] [place] [address] 67424- 9224 Mar, BMI 50.0-59.9, adult Z68.43 and Bipolar disorder, unspecified F31.9 [place] [address] [place] [id number] [place] [address] 17294- 5377 13 Mar, 2017 Diet controlled gestational diabetes mellitus (GDM), antepartum O24.410 [place] [address] [place] [id number] [place] [address] 84041- 8500 07 Mar, 2017 33 weeks gestation of Z3A.33 ; Gestational diabetes mellitus (GDM) in third trimester controlled on oral hypoglycemic drug O24.415 ; Third trimester Z34.93 and Obesity affecting in third trimester O99.213 [place] [address] [place] [id number] [place] [address] 43834- 3543 Mar, [place] [address] [place] [id number] [place] [address] 04966- 2302 24 Feb, 2017 Third trimester Z34.93 ; Encounter for immunization Z23 ; Gestational diabetes mellitus (GDM) in third trimester controlled on oral hypoglycemic drug O24.415 ; Obesity during in third trimester O99.213 and 31 weeks gestation of Z3A.31 [place] [address] [place] [id number] [place] [address] 54381- 4655 Feb, [place] [address] [place] [id number] [place] [address] 06583- 3973 Feb, Gestational diabetes mellitus (GDM) in third trimester, gestational diabetes method of control unspecified O24.419 [place] [address] [place] [id number] [place] [address] 41892- 4064 Feb, [place] [address] [place] [id number] [place] [address] 51300- 6719 Feb, [place] [address] [place] [id number] [place] [address] 08128- 4541 Feb, Bipolar disorder, unspecified F31.9 and BMI 50.0-59.9, adult Z68.43 [place] [address] [place] [address]- 0943 10 Feb, 2017 29 weeks gestation of Z3A.29 ; Gestational diabetes mellitus (GDM) in third trimester, gestational diabetes method of control unspecified O24.419 ; Third trimester Z34.93 ; Obesity affecting in third trimester O99.213 and BMI 50.0-59.9, adult Z68.43 [place] [address] [place] [id number] [place] [address] 50673- 7624 15 Jan, 2017 Abnormal glucose tolerance test (GTT) R73.02 [facility] [address] [id number] 15 Jan, 2017 Dental examination Z01.20 [place] [address] 26240- 4739 14 Jan, 2017 Bipolar disorder, unspecified F31.9 [place] [address] 50618- 0168 12 Jan, 2017 25 weeks gestation of Z3A.25 ; Second trimester Z34.92 ; Gastro-esophageal reflux disease without esophagitis K21.9 ; Diseases of the digestive system complicating , second trimester O99.612 ; Abnormal ultrasonic finding on screening of mother O28.3 and BMI 50.0-59.9, adult Z68.43 [place] [address] [place] [id number] [place] [address] 10339- 3193 05 Jan, 2017 [place] [address] [place] [id number] [place] [address] 84331- 1564 30 Dec, 2016 [place] [address] [place] [id number] [place] [address] 55607- 8872 14 Dec, 2016 Dental examination Z01.20 [place] [address] 87749- 1581 14 Dec, 2016 Second trimester Z34.92 ; 21 weeks gestation of Z3A.21 and Obesity affecting in second trimester O99.212 [place] [address] 96439- 4850 Dec, [facility] [id number] [place] [address] 99380- 7531 Dec, Lump of right breast N63.10 ; Abscess of left thigh L02.416 and BMI 45.0-49.9, adult Z68.42 [facility] [id number] [place] [address] [id number] Dec, Dental examination Z01.20 [facility] [address] [place] [id number] [place] [address] 77813- 2804 08 Dec, 2016 [facility] [address] [place] [id number] [place] [address] 72440- 5184 Dec, Bipolar disorder, unspecified F31.9 [facility] [address] [place] [id number] [place] [address] 37235- 6578 Nov, [facility] [address] [place] [id number] [place] [address] 52577- 2763 Nov, [facility] [address] [place] [id number] [place] [address] 22533- 2665 Nov, 17 weeks gestation of Z3A.17 and Right non- suppurative otitis media H65.91 [facility] [address] [place] [id number] [place] [address] 63741- 2093 Nov, [facility] [address] [place] [id number] [place] [address] 81217- 0125 Nov, [facility] [address] [place] [id number] [place] [address] 98319- 9054 Nov, Bipolar disorder, unspecified F31.9 [facility] [address] [place] [id number] [place] [address] 55841- 8348 Nov, 16 weeks gestation of Z3A.16 ; Second trimester Z34.92 and Obesity affecting in second trimester O99.212 [facility] [address] [id number] Nov, Encounter for dental examination Z01.20 [facility] [address] [address]- 4906 13 Oct, 2016 [facility] [address] [place] [id number] [place] [address] 82262- 9919 12 Oct, 2016 12 weeks gestation of Z3A.12 ; First trimester Z34.90 and Obesity affecting in first trimester O99.211 [facility] [address] [place] [id number] [place] [address] 09294- 6159 Sep, [facility] [address] [place] [id number] [place] [address] 96408- 6731 Sep, [facility] [address] [place] [id number] [place] [address] 21792- 4855 Sep, Bipolar disorder, unspecified F31.9 [place] [address] [place] [id number] [place] [address] 54500- 4451 Sep, [facility] [address] [place] [id number] [place] [address] 25676- 0845 Sep, [facility] [address] [place] [id number] [place] [address] 26469- 4274 Sep, Normal , first Z34.00 [facility] [address] [place] [id number] [place] [address] 23506- 1799 Sep, Normal , first Z34.00 ; 8 weeks gestation of Z3A.08 and Obesity affecting in first trimester O99.211 [facility] [address] [address]- 8609 Sep, Anxiety disorder, unspecified F41.9 [facility] [address] [place] [id number] [place] [address] 61821- 3938 Sep, [facility] [address] [place] [id number] [place] [address] 87291- 9028 Sep, Encounter for test, result unknown Z32.00 [facility] [address] [place] [id number] [place] [address] 27795- 3331 Aug, Anxiety disorder, unspecified F41.9 [place] [address] [place] [id number] [place] [address] 87492- 6974 Jul, Suppurative hidradenitis L73.2 ; Metabolic syndrome E88.81 ; BMI 40.0-44.9, adult Z68.41 and High risk sexual behavior Z72.51 [place] [address] 45611- 1962 Jul, Anxiety disorder, unspecified F41.9 [place] [address] [place] [id number] [place] [address] 28725- 8067 June, Anxiety disorder, unspecified F41.9 ; Attention deficit hyperactivity disorder F90.9 and Bipolar disorder, unspecified F31.9 [place] [address] [place] [id number] [place] [address] 39304- 0867 June, Attention deficit hyperactivity disorder F90.9 [place] [address] [place] [id number] [place] [address] 19729- 6165 May, Attention deficit hyperactivity disorder F90.9 [place] [address] [place] [id number] [place] [address] 92771- 6830 Apr, Attention deficit hyperactivity disorder F90.9 [place] [address] [place] [id number] [place] [address] 03165- 5761 14 Mar, 2016 Abscess L02.91 and Screening for STD sexually transmitted disease Z11.3 [place] [address] [place] [id number] [place] [address] 62812- 9211 03 Mar, 2016 Attention deficit hyperactivity disorder F90.9 [place] [address] [place] [id number] [place] [address] 60697- 6081 Feb, Attention deficit hyperactivity disorder F90.9 [place] [address] [place] [id number] [place] [address] 41944- 1428 Feb, Attention deficit disorder of adult F98.8 and DMDD ( disruptive mood dysregulation disorder) F34.81 [place] [id number] [place] [address] 62206- 7353 Jan, Exposure to sexually transmitted disease (STD) Z20.2 and Metabolic syndrome E88.81 [place] [address] [place] [id number] [place] [address] 85172- 7974 Jan, Possible exposure to STD Z20.2 ; BMI 40.0-44.9, adult Z68.41 ; Metabolic syndrome E88.81 ; Elevated fasting glucose R73.01 and Hypertriglyceridemia E78.1 [place] [address] [place] [id number] [place] [address] 06556- 9285 Jan, Possible exposure to STD Z20.2 ; Lumbago with sciatica, left side M54.42 ; Lumbago with sciatica, right side M54.41 ; BMI 40.0-44.9, adult Z68.41 ; Metabolic syndrome E88.81 ; Elevated fasting glucose R73.01 ; Hypertriglyceridemia E78.1 and Suppurative hidradenitis L73.2 [place] [address] [place] [id number] [place] [address] 39146- 8865 Dec, Attention deficit hyperactivity disorder F90.9 [place] [address] [place] [id number] [place] [address] 60920- 2279 Dec, [place] [address] [place] [id number] [place] [address] 54186- 6090 Nov, [place] [address] [place] [id number] [place] [address] 97129- 5823 Nov, [place] [address] [place] [id number] [place] [address] 77874- 4867 Nov, [place] [address] 47723- 6626 05 Nov, 2015 [place] [address] [place] [id number] [place] [address] 53286- 8079 30 Oct, 2015 Lumbago with sciatica, left side M54.42 and Other chronic pain G89.29 [place] [address] [address]- 2127 Oct, Lumbago with sciatica, left side M54.42 ; Lumbago with sciatica, right side M54.41 ; Other chronic pain G89.29 and Suppurative hidradenitis L73.2 [place] [address], [place] [address]- 2566 Oct, [place] [address] [place] [id number] [place] [address] 81031- 6561 Sep, [place] [address] [place] [id number] [place] [address] 43894- 9016 Sep, Unprotected sexual intercourse Z72.51 ; Hidradenitis suppurativa L73.2 ; Elevated fasting glucose R73.01 ; BMI 40.0-44.9, adult Z68.41 and Irregular menses N92.6 [place] [address] [place] [id number] [place] [address] 17654- 4112 Aug, [place] [address] [place] [id number] [place] [address] 60352- 1348 Jul, Routine health maintenance Z00.00 ; Abscess L02.91 ; H/O hidradenitis suppurativa Z87.2 ; Irregular menses N92.6 ; BMI 40.0-44.9, adult Z68.41 ; Elevated fasting glucose R73.01 and Hypertriglyceridemia E78.1 [place] [address] [place] [address] 81072- 7733 Jul, [facility] [id number] [place] [address] 41016 -4760 Jul, Hidradenitis suppurativa L73.2 [place] [address] [place] [address] 39054- 1727 Jul, Bipolar disorder, unspecified F31.9 ; Anxiety disorder, unspecified F41.9 and Attention deficit hyperactivity disorder F90.9 [place] [id number] [address]- 4529 June, [place] [address] [place] [address] 10936- 8841 June, [place] [address] [place] [id number] [place] [address] 24679- 6055 May, [place] [address] [place] [id number] [place] [address] 85174- 5841 Apr, [place] [address] [place] [id number] [place] [address] 59687- 0312 Apr, Well woman exam Z01.419 ; BMI 40.0-44.9, adult Z68.41 ; Tobacco use Z72.0 ; Family history of diabetes mellitus Z83.3 ; Hidradenitis suppurativa L73.2 ; Routine screening for STI (sexually transmitted infection) Z11.3 ; Unprotected sexual intercourse Z72.51 and Family history of breast cancer Z80.3 [place] [address] [place] [id number] [place] [address] 93500- 9473 Apr, Bipolar disorder, unspecified F31.9 ; Anxiety disorder, unspecified F41.9 and Attention deficit hyperactivity disorder F90.9 [place] [address] [place] [address] 38534- 5175 Mar, [place] [address], [place] [address]- 7399 Feb, [place] [id number] [place] [address] 73145- 3046 Feb, [place] [id number] [place] [address] 04185- 6481 Jan, Encounter for test, result negative Z32.02 and BMI 40.0-44.9, adult Z68.41 [place] [address], [place] [address]- 1324 Jan, Bipolar disorder, unspecified F31.9 ; Anxiety disorder, unspecified F41.9 and Attn-defct hyperactivity disorder, predom inattentive type F90.0 [facility] [address] [place] [id number] [place] [address] 08816- 1992 Jan, [facility] [address] 04034- 8567 Dec, [facility] [address] 66397- 7074 Dec, Bipolar disorder, unspecified F31.9 ; Attention deficit hyperactivity disorder F90.9 and Anxiety disorder, unspecified F41.9 [place] [address] 28934- 9888 Nov, Irregular menses N92.6 ; Unprotected sexual intercourse Z72.51 ; Screening for STD sexually transmitted disease Z11.3 ; General counseling and advice for contraceptive management Z30.09 ; Oral contraceptive pill surveillance Z30.41 ; BMI 40.0-44.9, adult Z68.41 and H/O hidradenitis suppurativa Z87.2 [facility] [address] [id number] Sep, Dental examination V72.2 [place] [address] 67789- 5416 Sep, Screen for STD (sexually transmitted disease) V74.5 and General counseling on prescription of oral contraceptives V25.01 [facility] [address] [place] [id number] [place] [address] 79877- 0073 14 May, 2014 [facility] [address] [place] [id number] [place] [address] 18651- 5999 May, [facility] [address] 20191- 3384 Apr, [facility] [address] [place] [id number] [place] [address] 38084- 7816 Apr, [facility] [address] 91053- 5097 Apr, [facility] [place] [facility] [address] [id number] [place] [address]- 2720 10 Apr, 2014 [facility] [place] [facility] [address] [id number] [place] [address]- 3620 Apr, 2014 [facility] [place] [facility] [address] [id number] [place] [address]- 3459 Apr, [facility] [place] [facility] [address] [id number] [place] [address]- 0749 Apr, [facility] [place] [facility] [address] [id number] [place] [address]- 5697 Mar, [facility] [place] [facility] [address] [id number] [place] [address]- 7745 Mar, 2014 [facility] [place] [facility] [address] [id number] [place] [address]- 9940 Mar, 2014 [facility] [place] [facility] [address] [id number] [place] [address]- 1724 Mar, 2014 [facility] [place] [facility] [address] [id number] [place] [address]- 5668 Mar, 2014 [facility] [place] [facility] [address] [facility] [id number] [place] [address]- 2934 Mar, 2014 [facility] [place] [facility] [address] [id number] [place] [address]- 2342 Jan, [facility] [place] [facility] [address] [id number] [place] [address]- 5461 Jan, [facility] [place] [facility] [address] [id number] [place] [address]- 8244 Dec, [facility] [place] [facility] [address] [id number] [place] [address]- 6987 Dec, [facility] [place] [facility] [address] [facility] [id number] [place] 3270 Dec, [facility] [place] [facility] [address] 5683 Dec, [facility] [address], [place] [address]- 7983 Sep, [facility] [address] 6227 Sep, [facility] [address] 6196 Apr, [facility] [address], [place] [address]- 9297 Apr, [facility] [id number] [place] [address] 893825- 6661 Mar, [facility] [address] 0048 Mar, [facility] [address], [place] [address]- 5428 Mar, [facility] [address], [place] [address]- 3992 Mar, [facility] [address] 7257 Jan, [facility] [id number] [place] [address] Jan, [facility] [id number] [place] [address] Dec, [facility] [id number] [address] Dec, [facility] [id number] [address] Dec, IMMUNIZATIONS No Known Immunizations SOCIAL HISTORY Never Assessed REASON FOR VISIT GDM ed 1 week f/u PLAN OF CARE VITAL SIGNS MEDICATIONS Unknown [...]
--- OUTSIDE RECORDS SUMMARY | 2017-09-24 22:54 | XMS REPORT ---
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 Active [id number] Problem Anxiety disorder, unspecified F41.9 Active 000706341 Problem Lesion of sciatic nerve, left lower limb G57.02 Active 249685755509133 Problem Abdominal pannus E65 Active 2635301395305 Problem Obesity during in third trimester O99.213 Active 747252952 Problem Post depression F53 Active 96151548 Problem Gestational diabetes mellitus (GDM) in third trimester, gestational diabetes method of control unspecified O24.419 Active 10506575 Problem Lumbago with sciatica, left side M54.42 Active 542325991 Problem Lumbago with sciatica, right side M54.41 Active 040431799 Problem Bipolar disorder, unspecified F31.9 Active 82191286 Problem Hypertriglyceridemia E78.1 Active 012358136 Problem Attention deficit hyperactivity disorder F90.9 Active 086198990 Problem Metabolic syndrome E88.81 Active 680536854 Problem Other chronic pain G89.29 Active 59370849 Problem Obesity affecting in second trimester O99.212 Active 289405180883 Problem Suppurative hidradenitis L73.2 Active 99007293 Problem Gastro-esophageal reflux disease without esophagitis K21.9 Active 273509765 ALLERGIES No Information ENCOUNTERS Encounter Location Date Diagnosis [facility] [address] [facility] [id number] [address] Jul, [place] [address] [place] [address] 54743- 3021 Jul, Somatic dysfunction of pelvis region M99.05 ; Somatic dysfunction of sacral region M99.04 ; Somatic dysfunction of lumbar region M99.03 ; Lesion of sciatic nerve, left lower limb G57.02 ; Lesion of sciatic nerve, 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 and BMI 50.0-59.9, adult Z68.43 [place] [address] [place] [id number] [place] [address] 80318- 7792 June, [place] [address] [id number] [place] [address] 93865- 5623 June, Bipolar disorder, unspecified F31.9 ; Attention deficit hyperactivity disorder F90.9 ; High risk medication use Z79.899 and BMI 50.0- 59.9, adult Z68.43 [place] [address] [id number] [place] [address] 11922- 1040 June, [place] [address] [place] [address] 06830- 0806 June, Hidradenitis suppurativa L73.2 and BMI 50.0-59.9, adult Z68.43 [place] [address] [place] [address] 81954- 5241 June, Bipolar disorder, unspecified F31.9 and BMI 50.0-59.9, adult Z68.43 [place] [address] [address] May, [place] [address] [id number] [place] [address] 79872- 7996 May, Lumbago with sciatica, left side M54.42 ; care and examination Z39.2 ; Lumbago with sciatica, right side M54.41 ; Other chronic pain G89.29 ; BMI 50.0-59.9, adult Z68.43 ; Abdominal pannus E65 ; Suppurative hidradenitis L73.2 and Post depression F53 [place] [address] [id number] [place] [address] 84256- 7386 Apr, [place] [address] [id number] [place] [address] 96377- 1097 21 Apr, 2017 Abdominal pannus E65 and BMI 45.0-49.9, adult Z68.42 [place] [address] [place] [id number] [place] [address] 26346- 9210 20 Apr, 2017 Screening for iron deficiency anemia Z13.0 [place] [address] [place] [id number] [place] [address] 75586- 7540 15 Apr, 2017 Bipolar disorder, unspecified F31.9 [place] [address] [place] [id number] [place] [address] 87253- 7563 07 Apr, 2017 Obesity during in third trimester O99.213 ; Third trimester Z34.93 ; Gestational diabetes mellitus (GDM) in third trimester controlled on oral hypoglycemic drug O24.415 ; 37 weeks gestation of Z3A.37 and Oligohydramnios in third trimester, single or unspecified fetus O41.03X0 [place] [address] [id number] [place] [address] 97765- 6539 28 Mar, 2017 Third trimester Z34.93 [place] [address] [id number] [place] [address] 78920- 1781 Mar, Gestational diabetes mellitus (GDM) in third trimester controlled on oral hypoglycemic drug O24.415 [place] [address] [place] [address] 55430- 2033 Mar, [place] [address] [id number] [place] [address] 11642- 6480 Mar, Third trimester Z34.93 ; Gestational diabetes mellitus (GDM) in third trimester controlled on oral hypoglycemic drug O24.415 and 35 weeks gestation of Z3A.35 [place] [address] [id number] [place] [address] 47657- 9193 Mar, BMI 50.0-59.9, adult Z68.43 and Bipolar disorder, unspecified F31.9 [place] [address] [id number] [place] [address] 51976- 5685 13 Mar, 2017 Diet controlled gestational diabetes mellitus (GDM), antepartum O24.410 [place] [address] [id number] [place] [address] 52736- 7493 07 Mar, 2017 33 weeks gestation of Z3A.33 ; Gestational diabetes mellitus (GDM) in third trimester controlled on oral hypoglycemic drug O24.415 ; Third trimester Z34.93 and Obesity affecting in third trimester O99.213 [place] [address] [id number] [place] [address] 45856- 6462 Mar, [place] [address] [id number] [place] [address] 60340- 9018 24 Feb, 2017 Third trimester Z34.93 ; Encounter for immunization Z23 ; Gestational diabetes mellitus (GDM) in third trimester controlled on oral hypoglycemic drug O24.415 ; Obesity during in third trimester O99.213 and 31 weeks gestation of Z3A.31 [place] [address] [id number] [place] [address] 20189- 4498 Feb, [place] [address] [id number] [place] [address] 91155- 2894 Feb, Gestational diabetes mellitus (GDM) in third trimester, gestational diabetes method of control unspecified O24.419 [place] [address] [id number] [place] [address] 29118- 6247 Feb, [place] [address] [id number] [place] [address] 79085- 9193 Feb, [place] [address] [address] [id number] [place] [address] 59790- 4448 Feb, Bipolar disorder, unspecified F31.9 and BMI 50.0-59.9, adult Z68.43 [place] [address] [place] [address] 7665 10 Feb, 2017 29 weeks gestation of Z3A.29 ; Gestational diabetes mellitus (GDM) in third trimester, gestational diabetes method of control unspecified O24.419 ; Third trimester Z34.93 ; Obesity affecting in third trimester O99.213 and BMI 50.0-59.9, adult Z68.43 [place] [address] [id number] [place] [address] 65661- 5169 15 Jan, 2017 Abnormal glucose tolerance test (GTT) R73.02 [facility] [address] [id number] 15 Jan, 2017 Dental examination Z01.20 [place] [address] 94259- 4242 14 Jan, 2017 Bipolar disorder, unspecified F31.9 [place] [address] 92274- 3751 12 Jan, 2017 25 weeks gestation of Z3A.25 ; Second trimester Z34.92 ; Gastro-esophageal reflux disease without esophagitis K21.9 ; Diseases of the digestive system complicating , second trimester O99.612 ; Abnormal ultrasonic finding on screening of mother O28.3 and BMI 50.0-59.9, adult Z68.43 [place] [address] [id number] [place] [address] 54502- 7532 05 Jan, 2017 [place] [address] [id number] [place] [address] 19351- 5754 30 Dec, 2016 [place] [address] [address] [id number] [place] [address] 65526- 7260 14 Dec, 2016 Dental examination Z01.20 [place] [address] 33108- 6490 14 Dec, 2016 Second trimester Z34.92 ; 21 weeks gestation of Z3A.21 and Obesity affecting in second trimester O99.212 [place] [address] 23273- 5481 Dec, [facility] [address] [place] [address] 18876- 8857 Dec, Lump of right breast N63.10 ; Abscess of left thigh L02.416 and BMI 45.0-49.9, adult Z68.42 [facility] [address] [place] [address] [id number] Dec, Dental examination Z01.20 [facility] [address] [place] [id number] [place] [address] 85512- 8324 08 Dec, 2016 [facility] [address] [place] [id number] [place] [address] 39871- 1727 Dec, Bipolar disorder, unspecified F31.9 [facility] [address] [place] [id number] [place] [address] 99146- 5643 Nov, [facility] [address] [id number] [place] [address] 61861- 9286 Nov, [facility] [address] [id number] [place] [address] 84778- 8661 Nov, 17 weeks gestation of Z3A.17 and Right non- suppurative otitis media H65.91 [facility] [address] [place] [id number] [place] [address] 62519- 5225 Nov, [facility] [address] [id number] [place] [address] 24484- 0680 Nov, [facility] [address] [place] [id number] [place] [address] 29003- 6275 Nov, Bipolar disorder, unspecified F31.9 [facility] [address] [place] [id number] [place] [address] 80630- 6433 Nov, 16 weeks gestation of Z3A.16 ; Second trimester Z34.92 and Obesity affecting in second trimester O99.212 [facility] [address] [id number] Nov, Encounter for dental examination Z01.20 [facility] [address] [address]- 6505 13 Oct, 2016 [facility] [address] [place] [id number] [place] [address] 10058- 5912 12 Oct, 2016 12 weeks gestation of Z3A.12 ; First trimester Z34.90 and Obesity affecting in first trimester O99.211 [facility] [address] [place] [id number] [place] [address] 75410- 7475 Sep, [facility] [address] [id number] [place] [address] 23508- 2802 Sep, [facility] [address] [id number] [place] [address] 57552- 9377 Sep, Bipolar disorder, unspecified F31.9 [place] [address] [id number] [place] [address] 78082- 7260 Sep, [facility] [address] [id number] [place] [address] 62589- 7551 Sep, [facility] [address] [id number] [place] [address] 93035- 3148 Sep, Normal , first Z34.00 [facility] [address] [place] [id number] [place] [address] 33790- 1764 Sep, Normal , first Z34.00 ; 8 weeks gestation of Z3A.08 and Obesity affecting in first trimester O99.211 [facility] [address] [address]- 0015 Sep, Anxiety disorder, unspecified F41.9 [facility] [address] [place] [id number] [place] [address] 77739- 7523 Sep, [facility] [address] [id number] [place] [address] 07377- 9876 Sep, Encounter for test, result unknown Z32.00 [facility] [address] [id number] [place] [address] 43021- 6252 Aug, Anxiety disorder, unspecified F41.9 [place] [address] [place] [id number] [place] [address] 36979- 9220 Jul, Suppurative hidradenitis L73.2 ; Metabolic syndrome E88.81 ; BMI 40.0-44.9, adult Z68.41 and High risk sexual behavior Z72.51 [place] [address] 93001- 8762 Jul, Anxiety disorder, unspecified F41.9 [place] [address] [id number] [place] [address] 31733- 8688 June, Anxiety disorder, unspecified F41.9 ; Attention deficit hyperactivity disorder F90.9 and Bipolar disorder, unspecified F31.9 [place] [address] [place] [id number] [place] [address] 38651- 0187 June, Attention deficit hyperactivity disorder F90.9 [place] [address] [place] [id number] [place] [address] 16722- 3307 May, Attention deficit hyperactivity disorder F90.9 [place] [address] [place] [id number] [place] [address] 22377- 7749 Apr, Attention deficit hyperactivity disorder F90.9 [place] [address] [place] [id number] [place] [address] 29399- 8367 14 Mar, 2016 Abscess L02.91 and Screening for STD sexually transmitted disease Z11.3 [place] [address] [id number] [place] [address] 70312- 1554 03 Mar, 2016 Attention deficit hyperactivity disorder F90.9 [place] [address] [id number] [place] [address] 71339- 4902 Feb, Attention deficit hyperactivity disorder F90.9 [place] [address] [place] [id number] [place] [address] 65768- 3608 Feb, Attention deficit disorder of adult F98.8 and DMDD ( disruptive mood dysregulation disorder) F34.81 [place] [address] [place] [address] 72430- 9821 Jan, Exposure to sexually transmitted disease (STD) Z20.2 and Metabolic syndrome E88.81 [place] [address] [place] [id number] [place] [address] 71923- 1380 Jan, Possible exposure to STD Z20.2 ; BMI 40.0-44.9, adult Z68.41 ; Metabolic syndrome E88.81 ; Elevated fasting glucose R73.01 and Hypertriglyceridemia E78.1 [place] [address] [id number] [place] [address] 82742- 4940 Jan, Possible exposure to STD Z20.2 ; Lumbago with sciatica, left side M54.42 ; Lumbago with sciatica, right side M54.41 ; BMI 40.0-44.9, adult Z68.41 ; Metabolic syndrome E88.81 ; Elevated fasting glucose R73.01 ; Hypertriglyceridemia E78.1 and Suppurative hidradenitis L73.2 [place] [address] [id number] [place] [address] 39697- 3671 Dec, Attention deficit hyperactivity disorder F90.9 [place] [address] [id number] [place] [address] 83759- 3374 Dec, [place] [address] [id number] [place] [address] 08433- 4568 Nov, [place] [address] [id number] [place] [address] 37928- 0116 Nov, [place] [address] [id number] [place] [address] 12835- 7505 Nov, [place] [address] 59836- 7455 05 Nov, 2015 [place] [address] [place] [id number] [place] [address] 95553- 3130 30 Oct, 2015 Lumbago with sciatica, left side M54.42 and Other chronic pain G89.29 [place] [address] [address]- 1638 Oct, Lumbago with sciatica, left side M54.42 ; Lumbago with sciatica, right side M54.41 ; Other chronic pain G89.29 and Suppurative hidradenitis L73.2 [place] [address] [address]- 0383 Oct, [place] [address] [id number] [place] [address] 78611- 9635 Sep, [place] [address] [place] [id number] [place] [address] 73204- 4519 Sep, Unprotected sexual intercourse Z72.51 ; Hidradenitis suppurativa L73.2 ; Elevated fasting glucose R73.01 ; BMI 40.0-44.9, adult Z68.41 and Irregular menses N92.6 [place] [address] [id number] [place] [address] 99533- 1203 Aug, [place] [address] [id number] [place] [address] 11339- 9277 Jul, Routine health maintenance Z00.00 ; Abscess L02.91 ; H/O hidradenitis suppurativa Z87.2 ; Irregular menses N92.6 ; BMI 40.0-44.9, adult Z68.41 ; Elevated fasting glucose R73.01 and Hypertriglyceridemia E78.1 [place] [address] [place] [address] 93102- 6078 Jul, [facility] [address] [place] [address] 04498 -5560 Jul, Hidradenitis suppurativa L73.2 [place] [address] [place] [address] 63907- 1678 Jul, Bipolar disorder, unspecified F31.9 ; Anxiety disorder, unspecified F41.9 and Attention deficit hyperactivity disorder F90.9 [place] [address] [address]- 0267 June, [place] [address] [place] [address] 53880- 9535 June, [place] [address] [id number] [place] [address] 99363- 1599 May, [place] [address] [id number] [place] [address] 53317- 8141 Apr, [place] [address] [id number] [place] [address] 86625- 2335 Apr, Well woman exam Z01.419 ; BMI 40.0-44.9, adult Z68.41 ; Tobacco use Z72.0 ; Family history of diabetes mellitus Z83.3 ; Hidradenitis suppurativa L73.2 ; Routine screening for STI (sexually transmitted infection) Z11.3 ; Unprotected sexual intercourse Z72.51 and Family history of breast cancer Z80.3 [place] [address] [id number] [place] [address] 64589- 8030 Apr, Bipolar disorder, unspecified F31.9 ; Anxiety disorder, unspecified F41.9 and Attention deficit hyperactivity disorder F90.9 [place] [address] [place] [address] 27549- 1342 Mar, [place] [address] [address]- 2028 Feb, [place] [address] [place] [address] 15598- 8621 Feb, [place] [address] [place] [address] 22055- 4782 Jan, Encounter for test, result negative Z32.02 and BMI 40.0-44.9, adult Z68.41 [place] [address] [address]- 5536 Jan, Bipolar disorder, unspecified F31.9 ; Anxiety disorder, unspecified F41.9 and Attn-defct hyperactivity disorder, predom inattentive type F90.0 [facility] [address] [id number] [place] [address] 03510- 1520 Jan, [facility] [address] 05536- 4697 Dec, [facility] [address] 20468- 3494 Dec, Bipolar disorder, unspecified F31.9 ; Attention deficit hyperactivity disorder F90.9 and Anxiety disorder, unspecified F41.9 [place] [address] 61892- 1670 Nov, Irregular menses N92.6 ; Unprotected sexual intercourse Z72.51 ; Screening for STD sexually transmitted disease Z11.3 ; General counseling and advice for contraceptive management Z30.09 ; Oral contraceptive pill surveillance Z30.41 ; BMI 40.0-44.9, adult Z68.41 and H/O hidradenitis suppurativa Z87.2 [facility] [address] [id number] Sep, Dental examination V72.2 [place] [address] 31273- 9925 Sep, Screen for STD (sexually transmitted disease) V74.5 and General counseling on prescription of oral contraceptives V25.01 [facility] [id number] [place] [address] 15849- 8799 14 May, 2014 [facility] [id number] [place] [address] 78299- 1336 May, [facility] [address] 42265- 9425 Apr, [facility] [id number] [place] [address] 59526- 8740 Apr, [facility] [address] 72391- 9391 Apr, [facility] [place] [facility] [address] [id number] [place] [address]- 8713 10 Apr, 2014 [facility] [place] [facility] [address] [id number] [place] [address]- 7097 Apr, 2014 [facility] [place] [facility] [address] [id number] [place] [address]- 2073 Apr, [facility] [place] [facility] [address] [id number] [place] [address]- 2483 Apr, [facility] [place] [facility] [address] [id number] [place] [address]- 7190 Mar, [facility] [place] [facility] [address] [id number] [place] [address]- 1754 Mar, 2014 [facility] [place] [facility] [address] [id number] [place] [address]- 8257 Mar, 2014 [facility] [place] [facility] [address] [id number] [place] [address]- 2080 Mar, 2014 [facility] [place] [facility] [address] [id number] [place] [address]- 1725 Mar, 2014 [facility] [place] [facility] [address] [facility] [id number] [place] [address]- 2045 Mar, 2014 [facility] [place] [facility] [address] [id number] [place] [address]- 0177 Jan, [facility] [place] [facility] [address] [id number] [place] [address]- 3631 Jan, [facility] [place] [facility] [address] [id number] [place] [address]- 3919 Dec, [facility] [place] [facility] [address] [id number] [place] [address]- 2127 Dec, [facility] [place] [facility] [address] [facility] [id number] [place] 4693 Dec, [facility] [place] [facility] [address] [address]- 8566 Dec, [facility] [address] [address]- 4214 Sep, [facility] [address] [place] [address]- 1854 Sep, [facility] [address], [place] [address]- 1327 Apr, [facility] [address] [place] [address]- 2254 Apr, [facility] [address] [place] [address] 03460- 8122 Mar, [facility] [address], [place] [address]- 2406 Mar, [facility] [address] [address] Mar, [facility] [address] [address] Mar, [facility] [address] [address] Jan, [facility] [address] [place] [address] Jan, [facility] [address] [address] Dec, [facility] [id number] [address] Dec, [facility] [id number] [address] Dec, IMMUNIZATIONS Vaccine Route Administration Date Status TDAP (BOOSTRIX) IM Intramuscular Mar 08, 2017 Administered SOCIAL HISTORY Never Assessed REASON FOR VISIT OB 2 wk f/u-FAISAL Jaquez PLAN OF CARE Activity Details Follow Up 2 weeks Reason: VITAL SIGNS Height 64 in 2017-03-08 Weight 296 lbs 2017-03-08 Temperature 97.6 degrees Fahrenheit 2017-03-08 Heart Rate 90 bpm 2017-03-08 Respiratory Rate 22 2017-03-08 BMI 50.808 kg/m2 2017-03-08 Blood pressure systolic 90 mmHg 2017-03-08 Blood pressure diastolic 60 mmHg 2017-03-08 MEDICATIONS Unknown Medications RESULTS Name Result Date Reference Range UA OB DIP (IN HOUSE) 2017-03-08 Glucose negative Protein 1+ CULTURE, CHLAMYDIA 2017-03-08 SOURCE: CERVICAL C. TRACHOMATIS CULTURE NOT ISOLATED PROCEDURES Procedure Date Ordered Result Body Site URINE-NO MICRO Mar 08, 2017 LAB NOT BILLED BY [facility] Mar 08, 2017 SINGLE IMMUNIZATION ADMIN Mar 08, 2017 TDAP (BOOSTRIX) Mar 08, 2017 INSTRUCTIONS MEDICATIONS ADMINISTERED No Known Medications MEDICAL (GENERAL) HISTORY Type Description Date Medical History Hidradenitis Supprativa Medical History Bipolar Disorder Medical History ADHD Surgical History pilonidal cyst removal tailbone Surgical History 2018 Hospitalization History Dehydration & concussion 07/23/2016 Hospitalization History child 2018
--- OUTSIDE RECORDS SUMMARY | 2017-09-24 22:55 | XMS REPORT ---
Author Author TIFFANY HYLTON [facility] Address [address] [place] [address] Care Team Providers Care Lactation Coordinator Name Role Phone CONCETTA TIFFANY Unavailable PROBLEMS Type Condition ICD9-CM Code AZY39-DU Code Onset Dates Condition Status SNOMED Code Problem Obesity affecting in second trimester O99.212 Active 271187777692 Problem BMI 50.0-59.9, adult Z68.43 Active 745816590 Problem Gastro-esophageal reflux disease without esophagitis K21.9 Active 796270033 Problem Post depression F53 Active 42885101 Problem Gestational diabetes mellitus (GDM) in third trimester, gestational diabetes method of control unspecified O24.419 Active 83773059 Problem Obesity during in third trimester O99.213 Active 155248655 Problem Obesity affecting in third trimester O99.213 Active 680682022105 Problem Abdominal pannus E65 Active 6360913262806 Problem Gestational diabetes mellitus (GDM) in third trimester controlled on oral hypoglycemic drug O24.415 Active 37382124 Problem Bipolar disorder, unspecified F31.9 Active 86604804 Problem Hypertriglyceridemia E78.1 Active 745354859 Problem Anxiety disorder, unspecified F41.9 Active 902575577 Problem Lumbago with sciatica, left side M54.42 Active 916797860 Problem Lumbago with sciatica, right side M54.41 Active 008852943 Problem Other chronic pain G89.29 Active 65109415 Problem Attention deficit hyperactivity disorder F90.9 Active 890670617 Problem Suppurative hidradenitis L73.2 Active 13407367 Problem Metabolic syndrome E88.81 Active 303512298 ALLERGIES No Information ENCOUNTERS Encounter Location Date Diagnosis [facility] [id number], [place] [address] June, [facility] [id number], [place] [address] June, Bipolar disorder, unspecified F31.9 [address] [id number] [place] [address] 33398- 0991 May, [facility] [id number] [place] [address] 72430- 2899 May, Lumbago with sciatica, left side M54.42 ; care and examination Z39.2 ; Lumbago with sciatica, right side M54.41 ; Other chronic pain G89.29 ; BMI 50.0-59.9, adult Z68.43 ; Abdominal pannus E65 ; Suppurative hidradenitis L73.2 and Post depression F53 [address] [address] [address] Apr, [address] [address] [address]- [address] Apr, Abdominal pannus E65 and BMI 45.0-49.9, adult Z68.42 [address] [address] [address]- 6467 Apr, Screening for iron deficiency anemia Z13.0 [address] [address] [address]- 3598 Apr, Bipolar disorder, unspecified F31.9 [address] [facility] [id number] [place] [address] 28025- 5976 Apr, Obesity during in third trimester O99.213 ; Third trimester Z34.93 ; Gestational diabetes mellitus (GDM) in third trimester controlled on oral hypoglycemic drug O24.415 ; 37 weeks gestation of Z3A.37 and Oligohydramnios in third trimester, single or unspecified fetus O41.03X0 [facility] [facility] [id number] [place] [address] 33016- 4437 Mar, Third trimester Z34.93 [address] [address] 40767- 2935 Mar, Gestational diabetes mellitus (GDM) in third trimester controlled on oral hypoglycemic drug O24.415 [facility] [id number] [place] [address] 02599- 7930 Mar, [address] [id number] [place] [address] 68148- 9340 Mar, Third trimester Z34.93 ; Gestational diabetes mellitus (GDM) in third trimester controlled on oral hypoglycemic drug O24.415 and 35 weeks gestation of Z3A.35 [address] [facility] [id number] [place] [address] 13436- 0525 15 Mar, 2017 BMI 50.0-59.9, adult Z68.43 and Bipolar disorder, unspecified F31.9 [address] [facility] [id number] [place] [address] 58894- 8153 13 Mar, 2017 Diet controlled gestational diabetes mellitus (GDM), antepartum O24.410 [facility] [facility] [id number] [place] [address] 87572- 0745 07 Mar, 2017 33 weeks gestation of Z3A.33 ; Gestational diabetes mellitus (GDM) in third trimester controlled on oral hypoglycemic drug O24.415 ; Third trimester Z34.93 and Obesity affecting in third trimester O99.213 [facility] [facility] [id number] [place] [address] 82980- 8702 Mar, [facility] [facility] [id number] [place] [address] 64948- 1059 Feb, Third trimester Z34.93 ; Encounter for immunization Z23 ; Gestational diabetes mellitus (GDM) in third trimester controlled on oral hypoglycemic drug O24.415 ; Obesity during in third trimester O99.213 and 31 weeks gestation of Z3A.31 [address] [id number] [place] [address] 78908- 6501 Feb, [address] [id number] [place] [address] 00843- 2156 Feb, Gestational diabetes mellitus (GDM) in third trimester, gestational diabetes method of control unspecified O24.419 [address] [address], [place] [address] 49[address] Feb, [address] [id number] [place] [address] 91898- 0735 16 Feb, 2017 [address] [id number] [place] [address] 72831- 5842 Feb, Bipolar disorder, unspecified F31.9 and BMI 50.0-59.9, adult Z68.43 [address] [address] [place] [address] 19328- 9562 10 Feb, 2017 29 weeks gestation of Z3A.29 ; Gestational diabetes mellitus (GDM) in third trimester, gestational diabetes method of control unspecified O24.419 ; Third trimester Z34.93 ; Obesity affecting in third trimester O99.213 and BMI 50.0-59.9, adult Z68.43 [address] [id number] [place] [address] 54335- 1325 15 Jan, 2017 Abnormal glucose tolerance test (GTT) R73.02 [facility] [id number] [place] [address] [id number] 15 Jan, 2017 Dental examination Z01.20 [address] [place] [address] 01149- 0754 14 Jan, 2017 Bipolar disorder, unspecified F31.9 [facility] [id number] [place] [address] 34937- 5411 12 Jan, 2017 25 weeks gestation of Z3A.25 ; Second trimester Z34.92 ; Gastro-esophageal reflux disease without esophagitis K21.9 ; Diseases of the digestive system complicating , second trimester O99.612 ; Abnormal ultrasonic finding on screening of mother O28.3 and BMI 50.0-59.9, adult Z68.43 [address] [address] [place] [address] 99411- 9418 05 Jan, 2017 [address] [id number] [place] [address] 06249- 1781 30 Dec, 2016 [facility] [id number] [place] [address] 90025- 7056 14 Dec, 2016 Dental examination Z01.20 [facility] [id number] [place] [address] 65895- 2645 14 Dec, 2016 Second trimester Z34.92 ; 21 weeks gestation of Z3A.21 and Obesity affecting in second trimester O99.212 [facility] [id number] [place] [address] 70123- 0051 13 Dec, 2016 [address] [address] 89122- 9954 10 Dec, 2016 Lump of right breast N63.10 ; Abscess of left thigh L02.416 and BMI 45.0-49.9, adult Z68.42 [facility] [id number] [place] [address] [id number] 10 Dec, 2016 Dental examination Z01.20 [facility] [id number] [place] [address] 00958- 4386 08 Dec, 2016 [facility] [id number] [place] [address] 53900- 4847 07 Dec, 2016 Bipolar disorder, unspecified F31.9 [facility] [id number] [place] [address] 31943- 4392 Nov, [facility] [id number] [place] [address] 46786- 3628 Nov, [facility] [id number] [place] [address] 73105- 6565 Nov, 17 weeks gestation of Z3A.17 and Right non- suppurative otitis media H65.91 [facility] [id number] [place] [address] 33768- 6603 16 Nov, 2016 [facility] [address] 23272- 0475 Nov, [facility] [address], [place] [address]- 3900 Nov, Bipolar disorder, unspecified F31.9 [facility] [address], [place] [address]- 5935 10 Nov, 2016 16 weeks gestation of Z3A.16 ; Second trimester Z34.92 and Obesity affecting in second trimester O99.212 [facility] [address] [id number] 03 Nov, 2016 Encounter for dental examination Z01.20 [facility] [id number] [place] [address] 43341- 6898 13 Oct, 2016 [facility] [address] [place] [address] 01597- 4374 12 Oct, 2016 12 weeks gestation of Z3A.12 ; First trimester Z34.90 and Obesity affecting in first trimester O99.211 [facility] [address], [place] [address]- 8036 Sep, [facility] [id number] [place] [address] 44678- 3474 Sep, [facility] [address], [place] [address]- 1370 Sep, Bipolar disorder, unspecified F31.9 [facility] [address], [place] [address]- 8811 Sep, [facility] [address], [place] [address]- 4661 Sep, [facility] [address], [place] [address]- 9052 Sep, Normal , first Z34.00 [facility] [address], [place] [address]- 3322 Sep, Normal , first Z34.00 ; 8 weeks gestation of Z3A.08 and Obesity affecting in first trimester O99.211 [facility] [id number] [place] [address] 11214- 9953 Sep, Anxiety disorder, unspecified F41.9 [address] [id number] [place] [address] 94429- 3912 Sep, [address] [id number] [place] [address] 53469- 5067 Sep, Encounter for test, result unknown Z32.00 [address] [id number] [place] [address] 81951- 2740 Aug, Anxiety disorder, unspecified F41.9 [address] [id number] [place] [address] 89613- 7174 Jul, Suppurative hidradenitis L73.2 ; Metabolic syndrome E88.81 ; BMI 40.0-44.9, adult Z68.41 and High risk sexual behavior Z72.51 [address] [id number] [place] [address] 72891- 0283 Jul, Anxiety disorder, unspecified F41.9 [address] [id number] [place] [address] 38979- 9208 June, Anxiety disorder, unspecified F41.9 ; Attention deficit hyperactivity disorder F90.9 and Bipolar disorder, unspecified F31.9 [address] [place] [id number] [place] [address] 58897- 3966 June, Attention deficit hyperactivity disorder F90.9 [address] [id number] [place] [address] 35431- 1392 May, Attention deficit hyperactivity disorder F90.9 [address] [id number] [place] [address] 79789- 3677 Apr, Attention deficit hyperactivity disorder F90.9 [address] [id number] [place] [address] 83944- 4565 14 Mar, 2016 Abscess L02.91 and Screening for STD sexually transmitted disease Z11.3 [address] [address], [place] [address]- 7561 Mar, Attention deficit hyperactivity disorder F90.9 [address] [place] [id number] [place] [address] 43857- 6185 Feb, Attention deficit hyperactivity disorder F90.9 [address] [id number] [place] [address] 70118- 1158 Feb, Attention deficit disorder of adult F98.8 and DMDD ( disruptive mood dysregulation disorder) F34.81 [id number] [place] [address] 35191- 0349 Jan, Exposure to sexually transmitted disease (STD) Z20.2 and Metabolic syndrome E88.81 [id number] [place] [address] 08735- 7597 Jan, Possible exposure to STD Z20.2 ; BMI 40.0-44.9, adult Z68.41 ; Metabolic syndrome E88.81 ; Elevated fasting glucose R73.01 and Hypertriglyceridemia E78.1 [id number] [place] [address] 11707- 0301 Jan, Possible exposure to STD Z20.2 ; Lumbago with sciatica, left side M54.42 ; Lumbago with sciatica, right side M54.41 ; BMI 40.0-44.9, adult Z68.41 ; Metabolic syndrome E88.81 ; Elevated fasting glucose R73.01 ; Hypertriglyceridemia E78.1 and Suppurative hidradenitis L73.2 [address] [place], [place] [address]- 2812 Dec, Attention deficit hyperactivity disorder F90.9 [address] [id number] [place] [address] 12931- 2122 Dec, [address] [place] [place] [address] 83431- 9240 Nov, [address], [place] [address]- 8296 Nov, [id number] [place] [address] 37764- 0147 Nov, [address] [place] [place] [address] 64400- 9934 Nov, [address] [place] [id number] [place] [address] 41010- 7553 Oct, Lumbago with sciatica, left side M54.42 and Other chronic pain G89.29 [address] [id number] [place] [address] 99254- 8247 22 Oct, 2015 Lumbago with sciatica, left side M54.42 ; Lumbago with sciatica, right side M54.41 ; Other chronic pain G89.29 and Suppurative hidradenitis L73.2 [address] [id number] [place] [address] 90472- 2729 Oct, [address] [place] [place] [address] 13439- 5926 Sep, [address] [place] [id number] [place] [address] 10046- 8914 Sep, Unprotected sexual intercourse Z72.51 ; Hidradenitis suppurativa L73.2 ; Elevated fasting glucose R73.01 ; BMI 40.0-44.9, adult Z68.41 and Irregular menses N92.6 [address], [place] [address]- 9016 Aug, [address] [facility] [id number] [place] [address] 21197- 8496 Jul, Routine health maintenance Z00.00 ; Abscess L02.91 ; H/O hidradenitis suppurativa Z87.2 ; Irregular menses N92.6 ; BMI 40.0-44.9, adult Z68.41 ; Elevated fasting glucose R73.01 and Hypertriglyceridemia E78.1 [address], [place] [address]- 2792 16 Jul, 2015 [facility] [address], [place] [address] -8790 Jul, Hidradenitis suppurativa L73.2 [facility] [address], [place] [address]- 8223 Jul, Bipolar disorder, unspecified F31.9 ; Anxiety disorder, unspecified F41.9 and Attention deficit hyperactivity disorder F90.9 [facility] [address], [place] [address]- 6060 June, [address] [facility] [id number] [place] [address] 85788- 0779 June, [facility] [id number] [place] [address] 77082- 2833 May, [facility] [address] [place] [address] 04212- 3341 Apr, [address] [place] [place] [address] 05145- 2555 Apr, Well woman exam Z01.419 ; BMI 40.0-44.9, adult Z68.41 ; Tobacco use Z72.0 ; Family history of diabetes mellitus Z83.3 ; Hidradenitis suppurativa L73.2 ; Routine screening for STI (sexually transmitted infection) Z11.3 ; Unprotected sexual intercourse Z72.51 and Family history of breast cancer Z80.3 [facility] [address], [place] [address]- 7467 Apr, Bipolar disorder, unspecified F31.9 ; Anxiety disorder, unspecified F41.9 and Attention deficit hyperactivity disorder F90.9 [facility] [address], [place] [address]- 3336 Mar, [address] [place] [place] [address] 88472- 1264 Feb, [address] [place] [place] [address] 60064- 2634 Feb, [address] [id number] [place] [address] 95727- 6137 Jan, Encounter for test, result negative Z32.02 and BMI 40.0-44.9, adult Z68.[address] 75217- 4591 Jan, Bipolar disorder, unspecified F31.9 ; Anxiety disorder, unspecified F41.9 and Attn-defct hyperactivity disorder, predom inattentive type F90.0 [id number] [place] [address] 00503- 2969 Jan, [id number] [place] [address] 88150- 1941 Dec, [id number] [place] [address] 82963- 9119 Dec, Bipolar disorder, unspecified F31.9 ; Attention deficit hyperactivity disorder F90.9 and Anxiety disorder, unspecified F41.9 [id number] [place] [address] 65921- 1992 Nov, Irregular menses N92.6 ; Unprotected sexual intercourse Z72.51 ; Screening for STD sexually transmitted disease Z11.3 ; General counseling and advice for contraceptive management Z30.09 ; Oral contraceptive pill surveillance Z30.41 ; BMI 40.0-44.9, adult Z68.41 and H/O hidradenitis suppurativa Z87.2 [facility] [id number] [place] [address] [id number] Sep, Dental examination V72.2 [address] [id number] [place] [address] 28925- 0896 Sep, Screen for STD (sexually transmitted disease) V74.5 and General counseling on prescription of oral contraceptives V25.01 [address] [place] [address]- 5497 14 May, 2014 [facility] [place] [facility] [address] [id number] [place] [address]- 5693 2014 [facility] [place] [facility] [address] [id number] [place] [address]- 7719 30 Apr, 2014 [facility] [place] [facility] [address] [id number] [place] [address]- 9459 30 Apr, 2014 [facility] [place] [facility] [address] [id number] [place] [address]- 9510 10 Apr, 2014 [facility] [place] [facility] [address] [id number] [place] [address]- 3218 10 Apr, 2014 [facility] [place] [facility] [address] [facility] [id number] [place] [address]- 5458 Apr, [facility] [place] [facility] [address] [id number] [place] [address]- 6293 Apr, [facility] [place] [facility] [address] [id number] [place] [address]- 6898 Apr, [facility] [place] [facility] [address] [id number] [place] [address]- 4947 Mar, [facility] [place] [facility] [address] [facility] [id number] [place] [address]- 3658 Mar, [facility] [place] [facility] [address] [id number] [place] [address]- 3437 Mar, [facility] [place] [facility] [address] [id number] [place] [address]- 6375 Mar, [facility] [place] [facility] [address] [id number] [place] [address]- 8451 Mar, [facility] [place] [facility] [address] [facility] [id number] [place] [address]- 4646 Mar, 2014 [facility] [place] [facility] [address] [facility] [id number] [place] [address]- 1276 Jan, [facility] [place] [facility] [address] [id number] [place] [address]- 5858 Jan, [facility] [place] [facility] [address] [id number] [place] [address]- 5354 Dec, [facility] [place] [facility] [address] [id number] [place] [address]- 0796 Dec, [facility] [place] [facility] [address] [id number] [place] [address]- 5160 Dec, [facility] [place] [facility] [address] [id number] [place] [address]- 1306 Dec, [facility] [place] [facility] [address] [id number] [place] [address]- 4197 Sep, [facility] [place] [facility] [address] [id number] [place] [address]- 1106 Sep, [facility] [place] [facility] [address] [id number] [place] [address]- 3448 Apr, [facility] [place] [facility] [address] [id number] [place] [address]- 2580 Apr, [facility] [place] [facility] [address] [id number] [place] [address]- 7035 Mar, [facility] [place] [facility] [address] [id number] [place] [address]- 7964 Mar, [facility] [place] [facility] [address] [id number] [place] [address]- 2091 Mar, [facility] [place] [facility] [address] [id number] [place] [address]- 2693 Mar, [facility] [place] [facility] [address] [id number] [place] [address]- 1541 Jan, [facility] [place] [facility] [address] [id number] [place] [address]- 4376 Jan, [facility] [place] [facility] [address] [facility] [id number] [place] [address]- 2077 Dec, [facility] [address] [facility] [id number] [place] [address]- 3821 Dec, [facility] [address] [facility] [id number] [place] [address]- 7231 Dec, IMMUNIZATIONS No Known Immunizations SOCIAL HISTORY [...]
--- OUTSIDE RECORDS SUMMARY | 2017-09-24 22:56 | XMS REPORT ---
Author Author EVERARDO HUNT [facility] Address [address] [place] [address] Care Team Providers Care Validation Analyst Name Role Phone EVERARDO HUNT Unavailable PROBLEMS Type Condition ICD9-CM Code [id number] Code Onset Dates Condition Status SNOMED Code Problem Obesity affecting in second trimester O99.212 Active 920386193224 Problem BMI 50.0-59.9, adult Z68.43 Active 909401164 Problem Gastro-esophageal reflux disease without esophagitis K21.9 Active 967372869 Problem Post depression F53 Active 83941337 Problem Gestational diabetes mellitus (GDM) in third trimester, gestational diabetes method of control unspecified O24.419 Active 84394379 Problem Obesity during in third trimester O99.213 Active 911564521 Problem Obesity affecting in third trimester O99.213 Active 936376332628 Problem Abdominal pannus E65 Active 0015411437712 Problem Gestational diabetes mellitus (GDM) in third trimester controlled on oral hypoglycemic drug O24.415 Active 87638340 Problem Bipolar disorder, unspecified F31.9 Active 02448524 Problem Hypertriglyceridemia E78.1 Active 671272577 Problem Anxiety disorder, unspecified F41.9 Active 449188690 Problem Lumbago with sciatica, left side M54.42 Active 432067598 Problem Lumbago with sciatica, right side M54.41 Active 854251191 Problem Other chronic pain G89.29 Active 11538399 Problem Attention deficit hyperactivity disorder F90.9 Active 418565526 Problem Suppurative hidradenitis L73.2 Active 39587719 Problem Metabolic syndrome E88.81 Active 099059938 ALLERGIES Substance Reaction Event Type Date Status Bees anaphylaxis Non Drug Allergy Jan, Active ENCOUNTERS Encounter Location Date Diagnosis [facility] [address] [facility] [id number] [address] Jul, [facility] [address] [address] June, [facility] [id number] [place] [address] 73248- 7944 June, Bipolar disorder, unspecified F31.9 ; Attention deficit hyperactivity disorder F90.9 ; High risk medication use Z79.899 and BMI 50.0- 59.9, adult Z68.43 [facility] [id number] [place] [address] 25319- 7311 June, [facility] [id number] [place] [address] 08458- 9879 June, Hidradenitis suppurativa L73.2 and BMI 50.0-59.9, adult Z68.43 [facility] [id number] [place] [address] 03694- 1284 June, Bipolar disorder, unspecified F31.9 and BMI 50.0-59.9, adult Z68.43 [facility] [id number] [place] [address] 94805- 4506 May, [facility] [place] [id number] [place] [address] 13757- 7403 May, Lumbago with sciatica, left side M54.42 ; care and examination Z39.2 ; Lumbago with sciatica, right side M54.41 ; Other chronic pain G89.29 ; BMI 50.0-59.9, adult Z68.43 ; Abdominal pannus E65 ; Suppurative hidradenitis L73.2 and Post depression F53 [place] [id number] [place] [address] 49675- 4101 Apr, [facility] [place] [id number] [place] [address] 35542- 2544 Apr, Abdominal pannus E65 and BMI 45.0-49.9, adult Z68.42 [facility] [id number] [place] [address] 44356- 8414 Apr, Screening for iron deficiency anemia Z13.0 [facility] [place] [id number] [place] [address] 08106- 9155 Apr, Bipolar disorder, unspecified F31.9 [facility] [place] [id number] [place] [address] 36295- 9049 07 Apr, 2017 Obesity during in third trimester O99.213 ; Third trimester Z34.93 ; Gestational diabetes mellitus (GDM) in third trimester controlled on oral hypoglycemic drug O24.415 ; 37 weeks gestation of Z3A.37 and Oligohydramnios in third trimester, single or unspecified fetus O41.03X0 [facility] [id number] [place] [address] 33535- 2548 28 Mar, 2017 Third trimester Z34.93 [facility] [id number] [place] [address] 10145- 8510 26 Mar, 2017 Gestational diabetes mellitus (GDM) in third trimester controlled on oral hypoglycemic drug O24.415 [facility] [place] [id number] [place] [address] 12836- 7434 Mar, [facility] [id number] [place] [address] 34580- 4604 Mar, Third trimester Z34.93 ; Gestational diabetes mellitus (GDM) in third trimester controlled on oral hypoglycemic drug O24.415 and 35 weeks gestation of Z3A.35 [facility] [place] [id number] [place] [address] 80537- 8452 15 Mar, 2017 BMI 50.0-59.9, adult Z68.43 and Bipolar disorder, unspecified F31.9 [facility] [id number] [place] [address] 59891- 6709 13 Mar, 2017 Diet controlled gestational diabetes mellitus (GDM), antepartum O24.410 [place] [address] [place] [address] 52891- 4041 07 Mar, 2017 33 weeks gestation of Z3A.33 ; Gestational diabetes mellitus (GDM) in third trimester controlled on oral hypoglycemic drug O24.415 ; Third trimester Z34.93 and Obesity affecting in third trimester O99.213 [place] [id number] [place] [address] 97256- 2413 Mar, [place] [address] [place] [address] 40279- 8252 Feb, Third trimester Z34.93 ; Encounter for immunization Z23 ; Gestational diabetes mellitus (GDM) in third trimester controlled on oral hypoglycemic drug O24.415 ; Obesity during in third trimester O99.213 and 31 weeks gestation of Z3A.31 [facility] [id number] [place] [address] 18994- 8805 Feb, [facility] [place] [id number] [place] [address] 89411- 4272 Feb, Gestational diabetes mellitus (GDM) in third trimester, gestational diabetes method of control unspecified O24.419 [facility] [id number] [place] [address] 24141- 2306 Feb, [facility] [place] [id number] [place] [address] 74160- 3215 Feb, [place] [address] [place] [address] 55222- 4786 Feb, Bipolar disorder, unspecified F31.9 and BMI 50.0-59.9, adult Z68.43 [place] [address] [place] [address] 51563- 0324 Feb, 29 weeks gestation of Z3A.29 ; Gestational diabetes mellitus (GDM) in third trimester, gestational diabetes method of control unspecified O24.419 ; Third trimester Z34.93 ; Obesity affecting in third trimester O99.213 and BMI 50.0-59.9, adult Z68.43 [facility] [address] [place] [address] 09573- 5585 Jan, Abnormal glucose tolerance test (GTT) R73.02 [facility] [address] [place] [address] [phone] 15 Jan, 2017 Dental examination Z01.20 [place] [id number] [place] [address] 56200- 1398 14 Jan, 2017 Bipolar disorder, unspecified F31.9 [facility] [id number] [place] [address] 75470- 8179 12 Jan, 2017 25 weeks gestation of Z3A.25 ; Second trimester Z34.92 ; Gastro-esophageal reflux disease without esophagitis K21.9 ; Diseases of the digestive system complicating , second trimester O99.612 ; Abnormal ultrasonic finding on screening of mother O28.3 and BMI 50.0-59.9, adult Z68.43 [facility] [place] [id number] [place] [address] 17815- 3461 05 Jan, 2017 [facility] [id number] [place] [address] 47077- 9577 30 Dec, 2016 [facility] [id number] [place] [address] 36586- 0364 14 Dec, 2016 Dental examination Z01.20 [facility] [id number] [place] [address] 83084- 6241 14 Dec, 2016 Second trimester Z34.92 ; 21 weeks gestation of Z3A.21 and Obesity affecting in second trimester O99.212 [facility] [place] [id number] [place] [address] 98641- 7756 13 Dec, 2016 [place] [place] [id number] [place] [address] 37111- 2456 10 Dec, 2016 Lump of right breast N63.10 ; Abscess of left thigh L02.416 and BMI 45.0-49.9, adult Z68.42 [facility] [address] [place] [address] [id number] 10 Dec, 2016 Dental examination Z01.20 [place] [id number] [place] [address] 56500- 3916 Dec, [facility] [id number] [place] [address] 41860- 6402 Dec, Bipolar disorder, unspecified F31.9 [facility] [address], [place] [address] 6747 Nov, [facility] [id number] [place] [address] 75840- 6157 Nov, [facility] [id number] [place] [address] 30400- 1636 Nov, 17 weeks gestation of Z3A.17 and Right non- suppurative otitis media H65.91 [facility] [id number] [place] [address] 36992- 6705 Nov, [facility] [id number] [place] [address] 09243- 9071 Nov, [facility] [id number] [place] [address] 68379- 0052 Nov, Bipolar disorder, unspecified F31.9 [facility] [id number] [place] [address] 56997- 1877 10 Nov, 2016 16 weeks gestation of Z3A.16 ; Second trimester Z34.92 and Obesity affecting in second trimester O99.212 [facility] [address] [place] [address] [id number] Nov, Encounter for dental examination Z01.20 [facility] [address] [place] [address]- 1145 Oct, [facility] [id number] [place] [address] 16226- 0495 Oct, 12 weeks gestation of Z3A.12 ; First trimester Z34.90 and Obesity affecting in first trimester O99.211 [facility] [address] [place] [address] 80182- 5607 Sep, [place] [address] [place] [address] 59983- 4604 Sep, [place] [place] [id number] [place] [address] 46650- 9815 Sep, Bipolar disorder, unspecified F31.9 [facility] [id number] [place] [address] 47998- 4161 Sep, [place] [id number] [place] [address] 48625- 8197 Sep, [place] [id number] [place] [address] 84360- 0019 Sep, Normal , first Z34.00 [facility] [id number] [place] [address] 67852- 0899 Sep, Normal , first Z34.00 ; 8 weeks gestation of Z3A.08 and Obesity affecting in first trimester O99.211 [facility] [id number] [place] [address] 79613- 6113 Sep, Anxiety disorder, unspecified F41.9 [facility] [id number] [place] [address] 56655- 5903 Sep, Encounter for test, result unknown Z32.00 [place] [place] [id number] [place] [address] 42969- 1010 Sep, [place] [id number] [place] [address] 43676- 4434 Aug, Anxiety disorder, unspecified F41.9 [facility] [place] [id number] [place] [address] 78094- 8385 Jul, Suppurative hidradenitis L73.2 ; Metabolic syndrome E88.81 ; BMI 40.0-44.9, adult Z68.41 and High risk sexual behavior Z72.51 [facility] [id number] [place] [address] 90282- 7201 Jul, Anxiety disorder, unspecified F41.9 [facility] [id number] [place] [address] 25917- 4007 June, Anxiety disorder, unspecified F41.9 ; Attention deficit hyperactivity disorder F90.9 and Bipolar disorder, unspecified F31.9 [facility] [id number] [place] [address] 67701- 4624 June, Attention deficit hyperactivity disorder F90.9 [facility] [id number] [place] [address] 16646- 3694 May, Attention deficit hyperactivity disorder F90.9 [facility] [id number] [place] [address] 09935- 2000 Apr, Attention deficit hyperactivity disorder F90.9 [facility] [id number] [place] [address] 14512- 8369 14 Mar, 2016 Abscess L02.91 and Screening for STD sexually transmitted disease Z11.3 [facility] [id number] [place] [address] 78529- 8463 Mar, Attention deficit hyperactivity disorder F90.9 [facility] [id number] [place] [address] 73853- 2418 Feb, Attention deficit hyperactivity disorder F90.9 [facility] [id number] [place] [address] 42700- 8572 Feb, Attention deficit disorder of adult F98.8 and DMDD ( disruptive mood dysregulation disorder) F34.81 [facility] [id number] [place] [address] 08435- 0047 Jan, Exposure to sexually transmitted disease (STD) Z20.2 and Metabolic syndrome E88.81 [facility] [address] [place] [address] 85200- 6480 Jan, Possible exposure to STD Z20.2 ; BMI 40.0-44.9, adult Z68.41 ; Metabolic syndrome E88.81 ; Elevated fasting glucose R73.01 and Hypertriglyceridemia E78.1 [facility] [address] [place] [address] 45966- 7939 Jan, Possible exposure to STD Z20.2 ; Lumbago with sciatica, left side M54.42 ; Lumbago with sciatica, right side M54.41 ; BMI 40.0-44.9, adult Z68.41 ; Metabolic syndrome E88.81 ; Elevated fasting glucose R73.01 ; Hypertriglyceridemia E78.1 and Suppurative hidradenitis L73.2 [facility] [id number] [place] [address] 37373- 0243 Dec, Attention deficit hyperactivity disorder F90.9 [facility] [address] 77832- 4850 Dec, [place] [id number] [place] [address] 25141- 9790 Nov, [facility] [id number] [place] [address] 48890- 7985 Nov, [place] [id number] [place] [address] 70407- 8344 Nov, [facility] [place] [id number] [place] [address] 15257- 9735 05 Nov, 2015 [place] [id number] [place] [address] 14270- 1241 30 Oct, 2015 Lumbago with sciatica, left side M54.42 and Other chronic pain G89.29 [facility] [id number] [place] [address] 95521- 8795 22 Oct, 2015 Lumbago with sciatica, left side M54.42 ; Lumbago with sciatica, right side M54.41 ; Other chronic pain G89.29 and Suppurative hidradenitis L73.2 [facility] [id number] [place] [address] 68975- 3023 08 Oct, 2015 [place] [id number] [place] [address] 04910- 1485 Sep, [facility] [address], [place] [address]- 2771 Sep, Unprotected sexual intercourse Z72.51 ; Hidradenitis suppurativa L73.2 ; Elevated fasting glucose R73.01 ; BMI 40.0-44.9, adult Z68.41 and Irregular menses N92.6 [facility] [id number] [place] [address] 05617- 3389 Aug, [place] [place] [id number] [place] [address] 73864- 2632 Jul, Routine health maintenance Z00.00 ; Abscess L02.91 ; H/O hidradenitis suppurativa Z87.2 ; Irregular menses N92.6 ; BMI 40.0-44.9, adult Z68.41 ; Elevated fasting glucose R73.01 and Hypertriglyceridemia E78.1 [place] [id number] [place] [address] 17763- 9372 Jul, [facility] [address] [place] [address] 54269 -7794 Jul, Hidradenitis suppurativa L73.2 [facility] [place] [id number] [place] [address] 20290- 9072 Jul, Bipolar disorder, unspecified F31.9 ; Anxiety disorder, unspecified F41.9 and Attention deficit hyperactivity disorder F90.9 [facility] [address] [address]- 0197 June, [facility] [id number] [place] [address] 51003- 6384 June, [facility] [place] [id number] [place] [address] 34722- 9646 May, [place] [address] [place] [address]- 9374 Apr, [facility] [id number] [place] [address] 65367- 4955 16 Apr, 2016 Well woman exam Z01.419 ; BMI 40.0-44.9, adult Z68.41 ; Tobacco use Z72.0 ; Family history of diabetes mellitus Z83.3 ; Hidradenitis suppurativa L73.2 ; Routine screening for STI (sexually transmitted infection) Z11.3 ; Unprotected sexual intercourse Z72.51 and Family history of breast cancer Z80.[address] 15404- 1145 Apr, Bipolar disorder, unspecified F31.9 ; Anxiety disorder, unspecified F41.9 and Attention deficit hyperactivity disorder F90.[address] 36186- 2783 Mar, [place] [id number] [place] [address] 89393- 5097 Feb, [address] 83917- 2528 Feb, [place] [id number] [place] [address] 23516- 3922 Jan, Encounter for test, result negative Z32.02 and BMI 40.0-44.9, adult Z68.41 [place] [id number] [place] [address] 04993- 7270 Jan, Bipolar disorder, unspecified F31.9 ; Anxiety disorder, unspecified F41.9 and Attn-defct hyperactivity disorder, predom inattentive type F90.0 [place] [id number] [place] [address] 73710- 5445 Jan, [address] 33911- 3902 Dec, [place] [id number] [place] [address] 21781- 8346 Dec, Bipolar disorder, unspecified F31.9 ; Attention deficit hyperactivity disorder F90.9 and Anxiety disorder, unspecified F41.9 [facility] [address] [address]- 2688 27 Nov, 2014 Irregular menses N92.6 ; Unprotected sexual intercourse Z72.51 ; Screening for STD sexually transmitted disease Z11.3 ; General counseling and advice for contraceptive management Z30.09 ; Oral contraceptive pill surveillance Z30.41 ; BMI 40.0-44.9, adult Z68.41 and H/O hidradenitis suppurativa Z87.2 [facility] [address] [place] [address] [id number] Sep, Dental examination V72.2 [facility] [id number] [place] [address] 25112- 9186 Sep, Screen for STD (sexually transmitted disease) V74.5 and General counseling on prescription of oral contraceptives V25.01 [facility] [id number] [place] [address] 36211- 3446 14 May, 2014 [facility] [id number] [place] [address] [id number]- 3104 May, [facility] [id number] [place] [address] 01133- 6476 Apr, [facility] [id number] [place] [address] 064433- 8166 30 Apr, 2014 [facility] [id number] [place] [address] 99960353- 3681 Apr, [facility] [address] [place] [address] 96021777- 2407 Apr, [facility] [id number] [place] [address] 612183- 5908 Apr, [facility] [id number] [place] [address] 07188- 1816 Apr, [facility] [id number] [place] [address] 74187- 2316 Apr, [facility] [place] [facility] [address] [id number] [place] [address]- 3187 Mar, 2014 [facility] [place] [facility] [address] [id number] [place] [address]- 0127 Mar, 2014 [facility] [place] [facility] [address] [id number] [place] [address]- 5411 Mar, 2014 [facility] [place] [facility] [address] [id number] [place] [address]- 2283 Mar, 2014 [facility] [place] [facility] [address] [id number] [place] [address]- 9469 Mar, [facility] [place] [facility] [address] [id number] [place] [address]- 7053 Mar, 2014 [facility] [place] [facility] [address] [id number] [place] [address]- 3550 Jan, [facility] [place] [facility] [address] [id number] [place] [address]- 9663 Jan, [facility] [place] [facility] [address] [id number] [place] [address]- 7736 Dec, [facility] [place] [facility] [address] [id number] [place] [address]- 0071 Dec, [facility] [place] [facility] [address] [id number] [place] [address]- 6915 Dec, [facility] [place] [facility] [address] [id number] [place] [address]- 1889 Dec, [facility] [place] [facility] [address] [id number] [place] [address]- 1518 Sep, [facility] [place] [facility] [address] [id number] [place] [address]- 3078 Sep, [facility] [place] [facility] [address] [id number] [place] [address]- 9254 Apr, [facility] [place] [facility] [address] [place] [address]- 1830 Apr, [facility] [address] [place] [address]- 8493 Mar, [facility] [address] [place] [address]- 7387 Mar, [facility] [address] 2331 Mar, [facility] [address] [place] [address]- 0146 Mar, [facility] [id number] [place] [address] 768377- 4989 Jan, [facility] [address] [place] [address] 19708- 1487 Jan, [facility] [id number] [place] [address] 41932- 4362 Dec, [facility] [address] [place] [address]- 6528 Dec, [facility] [address] [place] [address]- 3625 Dec, IMMUNIZATIONS No Known Immunizations SOCIAL HISTORY Never Assessed REASON FOR VISIT OB 4wk f/[id number] PLAN OF CARE Activity Details Follow Up 4 Weeks Reason: VITAL SIGNS Height 64 in 2017-01-24 Weight 293.9 lbs 2017-01-24 Temperature 98.0 degrees Fahrenheit 2017-01-24 Heart Rate 92 bpm 2017-01-24 Respiratory Rate 20 2017-01-24 BMI 50.448 kg/m2 2017-01-24 Blood pressure systolic 130 mmHg 2017-01-24 Blood pressure diastolic 84 mmHg 2017-01-24 MEDICATIONS Medication Instructions Dosage Frequency Start Date End Date Duration Status Ranitidine HCl 75 MG Orally Twice a day 1 tablet as needed 12h 12 Jan, 2017 Active Vitamins - (Dis) Active RESULTS No Results PROCEDURES Procedure Date Ordered Result Body Site URINE-NO MICRO Jan 24, 2017 LAB NOT BILLED BY [facility] Jan 24, 2017 VENSTEVE, ROUTINE* Jan 24, 2017 INSTRUCTIONS MEDICATIONS ADMINISTERED No Known Medications MEDICAL (GENERAL) HISTORY Type Description Date Medical History Hidradenitis Supprativa Medical History Bipolar Disorder Medical History ADHD Medical History Due May 14, 2017 Surgical History pilonidal cyst removal tailbone Surgical History 2018 Hospitalization History Dehydration & concussion 07/23/2016 Hospitalization History child 2018
--- OUTSIDE RECORDS SUMMARY | 2017-09-24 22:56 | XMS REPORT ---
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 Active [id number] Problem Anxiety disorder, unspecified F41.9 Active 198245562 Problem Lesion of sciatic nerve, left lower limb G57.02 Active 619785736237552 Problem Abdominal pannus E65 Active 9164454524316 Problem Obesity during in third trimester O99.213 Active 319457255 Problem Post depression F53 Active 81438191 Problem Gestational diabetes mellitus (GDM) in third trimester, gestational diabetes method of control unspecified O24.419 Active 01739657 Problem Lumbago with sciatica, left side M54.42 Active 379664259 Problem Lumbago with sciatica, right side M54.41 Active 084834235 Problem Bipolar disorder, unspecified F31.9 Active 17385619 Problem Hypertriglyceridemia E78.1 Active 662408286 Problem Attention deficit hyperactivity disorder F90.9 Active 715994840 Problem Metabolic syndrome E88.81 Active 696740271 Problem Other chronic pain G89.29 Active 69784492 Problem Obesity affecting in second trimester O99.212 Active 425778458888 Problem Suppurative hidradenitis L73.2 Active 53629410 Problem Gastro-esophageal reflux disease without esophagitis K21.9 Active 418097601 ALLERGIES No Information ENCOUNTERS Encounter Location Date Diagnosis [facility] [address] [facility] [id number] [address] Jul, [place] [address] [place] [address] 69152- 7759 Jul, Somatic dysfunction of pelvis region M99.05 ; Somatic dysfunction of sacral region M99.04 ; Somatic dysfunction of lumbar region M99.03 ; Lesion of sciatic nerve, left lower limb G57.02 and Lesion of sciatic nerve, 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 [place] [address] [place] [id number] [place] [address] 39681- 5108 June, [place] [address] [place] [address] 49748- 9223 June, Bipolar disorder, unspecified F31.9 ; Attention deficit hyperactivity disorder F90.9 ; High risk medication use Z79.899 and BMI 50.0- 59.9, adult Z68.43 [place] [address] [place] [id number] [place] [address] 72281- 0810 June, [place] [address] [place] [address] 73771- 6713 June, Hidradenitis suppurativa L73.2 and BMI 50.0-59.9, adult Z68.43 [place] [address] [place] [address] 38122- 2830 June, Bipolar disorder, unspecified F31.9 and BMI 50.0-59.9, adult Z68.43 [place] [address] [place] [address] 40184- 6290 May, [place] [address] [place] [address] 95883- 5511 May, Lumbago with sciatica, left side M54.42 ; care and examination Z39.2 ; Lumbago with sciatica, right side M54.41 ; Other chronic pain G89.29 ; BMI 50.0-59.9, adult Z68.43 ; Abdominal pannus E65 ; Suppurative hidradenitis L73.2 and Post depression F53 [place] [address] [place] [address] 75129- 3818 Apr, [place] [address] [place] [id number] [place] [address] 48808- 5482 Apr, Abdominal pannus E65 and BMI 45.0-49.9, adult Z68.42 [place] [address] [place] [id number] [place] [address] 99270- 5089 Apr, Screening for iron deficiency anemia Z13.0 [place] [address] [place] [id number] [place] [address] 50229- 6956 15 Apr, 2017 Bipolar disorder, unspecified F31.9 [place] [address] [place] [id number] [place] [address] 46564- 4909 07 Apr, 2017 Obesity during in third trimester O99.213 ; Third trimester Z34.93 ; Gestational diabetes mellitus (GDM) in third trimester controlled on oral hypoglycemic drug O24.415 ; 37 weeks gestation of Z3A.37 and Oligohydramnios in third trimester, single or unspecified fetus O41.03X0 [place] [address] [place] [id number] [place] [address] 37819- 0787 28 Mar, 2017 Third trimester Z34.93 [place] [address] [place] [id number] [place] [address] 41087- 8853 26 Mar, 2017 Gestational diabetes mellitus (GDM) in third trimester controlled on oral hypoglycemic drug O24.415 [place] [address] [place] [id number] [place] [address] 30575- 3475 Mar, [place] [address] [place] [address] 37596- 8085 Mar, Third trimester Z34.93 ; Gestational diabetes mellitus (GDM) in third trimester controlled on oral hypoglycemic drug O24.415 and 35 weeks gestation of Z3A.35 [place] [address] [place] [id number] [place] [address] 15130- 7559 15 Mar, 2017 BMI 50.0-59.9, adult Z68.43 and Bipolar disorder, unspecified F31.9 [place] [address] [place] [id number] [place] [address] 71637- 2181 13 Mar, 2017 Diet controlled gestational diabetes mellitus (GDM), antepartum O24.410 [place] [address] [place] [id number] [place] [address] 47268- 8371 07 Mar, 2017 33 weeks gestation of Z3A.33 ; Gestational diabetes mellitus (GDM) in third trimester controlled on oral hypoglycemic drug O24.415 ; Third trimester Z34.93 and Obesity affecting in third trimester O99.213 [place] [address] [place] [id number] [place] [address] 73389- 8895 Mar, [place] [address] [place] [id number] [place] [address] 12457- 6584 Feb, Third trimester Z34.93 ; Encounter for immunization Z23 ; Gestational diabetes mellitus (GDM) in third trimester controlled on oral hypoglycemic drug O24.415 ; Obesity during in third trimester O99.213 and 31 weeks gestation of Z3A.31 [place] [address] [place] [id number] [place] [address] 16592- 3899 Feb, [place] [address] [place] [id number] [place] [address] 07457- 3601 Feb, Gestational diabetes mellitus (GDM) in third trimester, gestational diabetes method of control unspecified O24.419 [place] [address] [place] [address] 56351- 0976 Feb, [place] [address] [place] [id number] [place] [address] 19712- 0557 Feb, [place] [address] [place] [id number] [place] [address] 40175- 8673 15 Feb, 2017 Bipolar disorder, unspecified F31.9 and BMI 50.0-59.9, adult Z68.43 [place] [address] [place] [id number] [place] [address] 51895- 6416 Feb, 29 weeks gestation of Z3A.29 ; Gestational diabetes mellitus (GDM) in third trimester, gestational diabetes method of control unspecified O24.419 ; Third trimester Z34.93 ; Obesity affecting in third trimester O99.213 and BMI 50.0-59.9, adult Z68.43 [facility] [address] [place] [address] 20701- 4563 15 Jan, 2017 Abnormal glucose tolerance test (GTT) R73.02 [facility] [address] [place] [id number] [place] [address] [id number] 15 Jan, 2017 Dental examination Z01.20 [place] [address] [place] [id number] [place] [address] 90045- 0277 14 Jan, 2017 Bipolar disorder, unspecified F31.9 [place] [address] [place] [id number] [place] [address] 87804- 8322 12 Jan, 2017 25 weeks gestation of Z3A.25 ; Second trimester Z34.92 ; Gastro-esophageal reflux disease without esophagitis K21.9 ; Diseases of the digestive system complicating , second trimester O99.612 ; Abnormal ultrasonic finding on screening of mother O28.3 and BMI 50.0-59.9, adult Z68.43 [place] [address] [place] [id number] [place] [address] 76117- 9893 05 Jan, 2017 [place] [address] [place] [address] 69643- 5939 30 Dec, 2016 [place] [address] [place] [id number] [place] [address] 70311- 5770 14 Dec, 2016 Dental examination Z01.20 [facility] [address] [place] [id number] [place] [address] 64274- 1857 14 Dec, 2016 Second trimester Z34.92 ; 21 weeks gestation of Z3A.21 and Obesity affecting in second trimester O99.212 [facility] [address] [place] [id number] [place] [address] 76687- 4911 13 Dec, 2016 [place] [address] [place] [id number] [place] [address] 12266- 2973 Dec, Lump of right breast N63.10 ; Abscess of left thigh L02.416 and BMI 45.0-49.9, adult Z68.42 [facility] [address] [place] [address] [id number] Dec, Dental examination Z01.20 [facility] [address] [place] [id number] [place] [address] 95540- 3176 08 Dec, 2016 [facility] [address] [place] [id number] [place] [address] 69211- 4229 Dec, Bipolar disorder, unspecified F31.9 [facility] [address] [place] [id number] [place] [address] 49695- 2363 Nov, [facility] [address] [place] [id number] [place] [address] 63676- 6199 Nov, [facility] [address] [place] [id number] [place] [address] 57805- 4653 Nov, 17 weeks gestation of Z3A.17 and Right non- suppurative otitis media H65.91 [facility] [address] [place] [id number] [place] [address] 29815- 7530 Nov, [facility] [address] [place] [id number] [place] [address] 47508- 8721 Nov, [facility] [address] [place] [id number] [place] [address] 38722- 2630 Nov, Bipolar disorder, unspecified F31.9 [facility] [address] [place] [id number] [place] [address] 12585- 7527 Nov, 16 weeks gestation of Z3A.16 ; Second trimester Z34.92 and Obesity affecting in second trimester O99.212 [facility] [address] [place] [address] [id number] 03 Nov, 2016 Encounter for dental examination Z01.20 [facility] [address] [id number] [address]- 5263 13 Oct, 2016 [facility] [address] [place] [id number] [address]- 2678 Oct, 12 weeks gestation of Z3A.12 ; First trimester Z34.90 and Obesity affecting in first trimester O99.211 [facility] [address] [address]- 4127 Sep, [facility] [address] [place] [id number] [place] [address] 13691- 1415 Sep, [facility] [address] [place] [id number] [place] [address] 24632- 6375 Sep, Bipolar disorder, unspecified F31.9 [facility] [address] [place] [id number] [place] [address] 18408- 1696 Sep, [facility] [address] [place] [id number] [place] [address] 17643- 9603 Sep, [facility] [address] [place] [id number] [place] [address] 85637- 3901 Sep, Normal , first Z34.00 [facility] [address] [place] [id number] [place] [address] 61752- 8339 Sep, Normal , first Z34.00 ; 8 weeks gestation of Z3A.08 and Obesity affecting in first trimester O99.211 [facility] [address] [place] [id number] [address]- 1358 Sep, Anxiety disorder, unspecified F41.9 [facility] [address] [address]- 6864 Sep, [facility] [address] [place] [id number] [place] [address] 46526- 7712 Sep, Encounter for test, result unknown Z32.00 [facility] [address] [address]- 7159 Aug, Anxiety disorder, unspecified F41.9 [place] [address] [address]- 1102 30 Jul, 2016 Suppurative hidradenitis L73.2 ; Metabolic syndrome E88.81 ; BMI 40.0-44.9, adult Z68.41 and High risk sexual behavior Z72.51 [place] [address] [place] [id number] [place] [address] 46109- 8249 Jul, Anxiety disorder, unspecified F41.9 [place] [address] [place] [id number] [place] [address] 81337- 7848 June, Anxiety disorder, unspecified F41.9 ; Attention deficit hyperactivity disorder F90.9 and Bipolar disorder, unspecified F31.9 [place] [address] [place] [id number] [place] [address] 47834- 9549 June, Attention deficit hyperactivity disorder F90.9 [place] [address] [place] [id number] [place] [address] 84497- 3116 May, Attention deficit hyperactivity disorder F90.9 [place] [address] [place] [id number] [place] [address] 97096- 0426 Apr, Attention deficit hyperactivity disorder F90.9 [place] [address] [place] [id number] [place] [address] 26711- 5472 14 Mar, 2016 Abscess L02.91 and Screening for STD sexually transmitted disease Z11.3 [place] [address] [place] [id number] [place] [address] 06699- 2757 03 Mar, 2016 Attention deficit hyperactivity disorder F90.9 [place] [address] [place] [id number] [place] [address] 43175- 6216 Feb, Attention deficit hyperactivity disorder F90.9 [place] [address] [place] [id number] [place] [address] 42656- 4719 Feb, Attention deficit disorder of adult F98.8 and DMDD ( disruptive mood dysregulation disorder) F34.81 [place] [address] [place] [id number] [place] [address] 15039- 8997 Jan, Exposure to sexually transmitted disease (STD) Z20.2 and Metabolic syndrome E88.81 [place] [address] [place] [id number] [place] [address] 40494- 1698 Jan, Possible exposure to STD Z20.2 ; BMI 40.0-44.9, adult Z68.41 ; Metabolic syndrome E88.81 ; Elevated fasting glucose R73.01 and Hypertriglyceridemia E78.1 [place] [address] [place] [id number] [place] [address] 29576- 9907 Jan, Possible exposure to STD Z20.2 ; Lumbago with sciatica, left side M54.42 ; Lumbago with sciatica, right side M54.41 ; BMI 40.0-44.9, adult Z68.41 ; Metabolic syndrome E88.81 ; Elevated fasting glucose R73.01 ; Hypertriglyceridemia E78.1 and Suppurative hidradenitis L73.2 [place] [address] 85630- 3293 Dec, Attention deficit hyperactivity disorder F90.9 [place] [address] 85210- 8938 Dec, [place] [address] [place] [id number] [place] [address] 31034- 7754 Nov, [place] [address] [place] [id number] [place] [address] 66886- 5079 Nov, [place] [address] [place] [id number] [place] [address] 97069- 7051 Nov, [place] [address] [place] [id number] [place] [address] 26061- 7085 Nov, [place] [address] [place] [id number] [place] [address] 19930- 4619 30 Oct, 2015 Lumbago with sciatica, left side M54.42 and Other chronic pain G89.29 [place] [address] 94440- 2484 Oct, Lumbago with sciatica, left side M54.42 ; Lumbago with sciatica, right side M54.41 ; Other chronic pain G89.29 and Suppurative hidradenitis L73.2 [place] [address] [address]- 0504 Oct, [place] [address] [place] [id number] [place] [address] 17256- 5970 Sep, [place] [address] [place] [id number] [place] [address] 57474- 0356 Sep, Unprotected sexual intercourse Z72.51 ; Hidradenitis suppurativa L73.2 ; Elevated fasting glucose R73.01 ; BMI 40.0-44.9, adult Z68.41 and Irregular menses N92.6 [place] [id number] [place] [address] 13190- 2982 Aug, [place] [address] [place] [id number] [place] [address] 04986- 7500 Jul, Routine health maintenance Z00.00 ; Abscess L02.91 ; H/O hidradenitis suppurativa Z87.2 ; Irregular menses N92.6 ; BMI 40.0-44.9, adult Z68.41 ; Elevated fasting glucose R73.01 and Hypertriglyceridemia E78.1 [place] [address] [place] [id number] [place] [address] 84990- 0225 Jul, [facility] [address] [place] [address] 77975 -9391 Jul, Hidradenitis suppurativa L73.2 [place] [id number] [place] [address] 07134- 1262 Jul, Bipolar disorder, unspecified F31.9 ; Anxiety disorder, unspecified F41.9 and Attention deficit hyperactivity disorder F90.9 [place] [id number] [place] [address] 83115- 4480 June, [place] [address] [place] [id number] [place] [address] 43942- 2783 June, [place] [address] [place] [id number] [place] [address] 44266- 8467 May, [place] [address] [place] [id number] [place] [address] 30288- 9836 Apr, [place] [address] 19390- 7546 Apr, Well woman exam Z01.419 ; BMI 40.0-44.9, adult Z68.41 ; Tobacco use Z72.0 ; Family history of diabetes mellitus Z83.3 ; Hidradenitis suppurativa L73.2 ; Routine screening for STI (sexually transmitted infection) Z11.3 ; Unprotected sexual intercourse Z72.51 and Family history of breast cancer Z80.[address] 45374- 6346 Apr, Bipolar disorder, unspecified F31.9 ; Anxiety disorder, unspecified F41.9 and Attention deficit hyperactivity disorder F90.9 [place] [id number] [place] [address] 37403- 9218 Mar, [place] [id number] [place] [address] 83777- 0326 Feb, [place] [id number] [place] [address] 89566- 9109 Feb, [place] [id number] [place] [address] 21964- 3575 Jan, Encounter for test, result negative Z32.02 and BMI 40.0-44.9, adult Z68.41 [place] [id number] [place] [address] 89137- 0165 Jan, Bipolar disorder, unspecified F31.9 ; Anxiety disorder, unspecified F41.9 and Attn-defct hyperactivity disorder, predom inattentive type F90.0 [facility] [address] [address]- 9479 Jan, [facility] [address] [place] [id number] [place] [address] 78837- 8936 Dec, [facility] [address] [place] [id number] [place] [address] 99521- 7794 Dec, Bipolar disorder, unspecified F31.9 ; Attention deficit hyperactivity disorder F90.9 and Anxiety disorder, unspecified F41.9 [facility] [address] [place] [id number] [place] [address] 36116- 8126 Nov, Irregular menses N92.6 ; Unprotected sexual intercourse Z72.51 ; Screening for STD sexually transmitted disease Z11.3 ; General counseling and advice for contraceptive management Z30.09 ; Oral contraceptive pill surveillance Z30.41 ; BMI 40.0-44.9, adult Z68.41 and H/O hidradenitis suppurativa Z87.2 [facility] [address] [place] [id number] [place] [address] [id number] Sep, Dental examination V72.2 [facility] [address] [place] [id number] [place] [address] 99252- 0075 Sep, Screen for STD (sexually transmitted disease) V74.5 and General counseling on prescription of oral contraceptives V25.01 [facility] [address] [address]- 2624 14 May, 2014 [facility] [address] [place] [address] 03890- 7423 May, [facility] [address] [place] [address] 96538- 5858 Apr, [facility] [address] [place] [id number] [place] [address] 88257- 9523 Apr, [facility] [address], [place] [address]- 1628 Apr, [facility] [address] [place] [id number] [place] [address]- 9103 10 Apr, 2014 [facility] [place] [facility] [address] [id number] [place] [address]- 1236 10 Apr, 2014 [facility] [place] [facility] [address] [id number] [place] [address]- 2986 10 Apr, 2014 [facility] [place] [facility] [address] [id number] [place] [address]- 7824 Apr, 2014 [facility] [place] [facility] [address] [id number] [place] [address]- 6689 Mar, 2014 [facility] [place] [facility] [address] [id number] [place] [address]- 6399 Mar, 2014 [facility] [place] [facility] [address] [facility] [id number] [place] [address]- 6675 Mar, 2014 [facility] [place] [facility] [address] [facility] [id number] [place] [address]- 8348 Mar, 2014 [facility] [place] [facility] [address] [facility] [id number] [place] [address]- 3798 Mar, 2014 [facility] [place] [facility] [address] [facility] [id number] [place] [address]- 3728 Mar, 2014 [facility] [place] [facility] [address] [facility] [id number] [place]- 9841 Jan, [facility] [place] [facility] [address] [facility] [id number] [place] [address]- 2366 Jan, [facility] [place] [facility] [address] [id number] [place] [address]- 2542 Dec, [facility] [place] [facility] [address] [id number] [place] [address]- 7626 Dec, [facility] [place] [facility] [address] [facility] [id number] [place] [address]- 0316 Dec, [facility] [place] [facility] [address] [facility] [id number] [place] [address]- 2222 Dec, [facility] [id number] 1843 Sep, [facility] [address] [facility] [id number] [address]- 2830 Sep, [facility] [id number] 1657 Apr, [facility] [address] [facility] [id number]- 7522 Apr, [facility] [address] [facility] [id number] [place] [id number] Mar, [facility] [address] [id number] [address] Mar, [facility] [id number] [address] Mar, [facility] [id number] [address] Mar, [facility] [id number] [address] Jan, [facility] [id number] [address] Jan, [facility] [address] [id number] [address] Dec, [facility] [address] [id number] [address] Dec, [facility] [address] [id number] [address] Dec, IMMUNIZATIONS No Known Immunizations SOCIAL HISTORY Never Assessed REASON FOR VISIT OB 4wk f/uFAISAL Heath PLAN OF CARE Activity Details Follow Up 2 Weeks Reason: VITAL SIGNS Height 64 in 2017-02-22 Weight 296 lbs 2017-02-22 Temperature 98.7 degrees Fahrenheit 2017-02-22 Heart Rate 100 bpm 2017-02-22 Respiratory Rate 20 2017-02-22 BMI 50.808 kg/m2 2017-02-22 Blood pressure systolic 110 mmHg 2017-02-22 Blood pressure diastolic 60 mmHg 2017-02-22 MEDICATIONS Medication Instructions Dosage Frequency Start Date End Date Duration Status Vitamins - (Dis) Active Blood Glucose Monitor System w/Device as directed Feb, Active Lancets - test blood sugar Feb, Active Blood Glucose Test Strip test strips test blood sugar Feb, Active Ranitidine HCl 75 MG Orally Twice a day 1 tablet as needed 12h Jan, Active RESULTS Name Result Date Reference Range UA OB DIP (IN HOUSE) 2017-02-22 Glucose neg Protein trace PROCEDURES Procedure Date Ordered Result Body Site URINE-NO MICRO Feb 22, 2017 INSTRUCTIONS MEDICATIONS ADMINISTERED No Known Medications MEDICAL (GENERAL) HISTORY Type Description Date Medical History Hidradenitis Supprativa Medical History Bipolar Disorder Medical History ADHD Surgical History pilonidal cyst removal tailbone Surgical History 2018 Hospitalization History Dehydration & concussion 07/23/2016 Hospitalization History child 2018
--- OUTSIDE RECORDS SUMMARY | 2017-09-24 22:57 | XMS REPORT ---
Author Author RAI Harper Organization [facility] Address Unknown Care Team Providers Care Facility Attendant Name Role Phone RAI Harper Unavailable PROBLEMS Type Condition ICD9-CM Code [id number] Code Onset Dates Condition Status SNOMED Code Problem Hypertriglyceridemia E78.1 Active 647845890 Problem Lumbago with sciatica, right side M54.41 Active 111766003 Problem Lumbago with sciatica, left side M54.42 Active 318728976 Problem Encounter for dental examination Z01.20 Active 920485839 Problem Obesity affecting in first trimester O99.211 Active 483668845723 Problem Suppurative hidradenitis L73.2 Active 80147071 Problem Other chronic pain G89.29 Active 49562482 Problem Metabolic syndrome E88.81 Active 007551344 Problem Attention deficit hyperactivity disorder F90.9 Active 309096168 Problem Irregular menses N92.6 Active 31708319 Problem BMI 40.0-44.9, adult Z68.41 Active 068978931 Problem Anxiety disorder, unspecified F41.9 Active 470610453 Problem Oral contraceptive pill surveillance Z30.41 Active 277828815747184 Problem Bipolar disorder, unspecified F31.9 Active 32419525 Problem Elevated fasting glucose R73.01 Active 702383308 ALLERGIES Substance Reaction Event Type Date Status Bees anaphylaxis Non Drug Allergy June, Active SOCIAL HISTORY Never Assessed PLAN OF CARE Activity Details Follow Up 3 Months Reason: VITAL SIGNS Height 64 in 2016-07-04 Weight 285.8 lbs 2016-07-04 Heart Rate 92 bpm 2016-07-04 Respiratory Rate 20 2016-07-04 BMI 49.05 kg/m2 2016-07-04 Blood pressure systolic 124 mmHg 2016-07-04 Blood pressure diastolic 86 mmHg 2016-07-04 MEDICATIONS Medication Instructions Dosage Frequency Start Date End Date Duration Status Trazodone HCl 100 MG Orally voucher Once a day 1 tablet at bedtime 24h Dec, 30 days Active Trileptal 300 MG Orally twice a day 1 tablet 12h 28 Dec, 2015 30 days Active Adderall 20 mg Orally twice a day 1 tablet 12h June, 30 days Active MetFORMIN HCl ER 500 MG Orally Once a day 1 tablet with evening meal 24h Jan, 30 day(s) Active RESULTS Name Result Date Reference Range URINE DRUG SCREEN (IN HOUSE) 2016-07-04 Lot # [id number] Exp date Control + COCAINE Negative AMPH Negative MTD Negative THC Negative OPIATE Negative BENZO Negative PCP Negativ BAR Negative OXY Negative MAMP Negative TCA BUP Negative MDMA Negative PROCEDURES Procedure Date Ordered Result Body Site DRUG TEST PRSMV DIR OPT OBS July 04, 2016 IMMUNIZATIONS No Known Immunizations MEDICAL (GENERAL) HISTORY Type Description Date Medical History Hidradenitis Supprativa Medical History Bipolar Disorder Medical History ADHD Medical History Due May 14, 2017 Surgical History pilonidal cyst removal tailbone Hospitalization History Dehydration & concussion 07/23/2016
--- OUTSIDE RECORDS SUMMARY | 2017-09-24 22:57 | XMS REPORT ---
Author Author MELODY LEON [facility] Address Unknown Care Team Providers Care Tableau Lead Name Role Phone MELODY LEON Unavailable PROBLEMS Type Condition ICD9-CM Code RHZ88-PN Code Onset Dates Condition Status SNOMED Code Problem Obesity affecting in second trimester O99.212 Active 795450138342 Problem BMI 50.0-59.9, adult Z68.43 Active 990884803 Problem Gastro-esophageal reflux disease without esophagitis K21.9 Active 217245173 Problem Post depression F53 Active 75726158 Problem Gestational diabetes mellitus (GDM) in third trimester, gestational diabetes method of control unspecified O24.419 Active 28280758 Problem Obesity during in third trimester O99.213 Active 102436999 Problem Obesity affecting in third trimester O99.213 Active 588877530820 Problem Abdominal pannus E65 Active 5430784350452 Problem Gestational diabetes mellitus (GDM) in third trimester controlled on oral hypoglycemic drug O24.415 Active 46538726 Problem Bipolar disorder, unspecified F31.9 Active 04861951 Problem Hypertriglyceridemia E78.1 Active 409672957 Problem Anxiety disorder, unspecified F41.9 Active 645088078 Problem Lumbago with sciatica, left side M54.42 Active 287471283 Problem Lumbago with sciatica, right side M54.41 Active 065653236 Problem Other chronic pain G89.29 Active 04392080 Problem Attention deficit hyperactivity disorder F90.9 Active 802002151 Problem Suppurative hidradenitis L73.2 Active 39120888 Problem Metabolic syndrome E88.81 Active 092783667 ALLERGIES Substance Reaction Event Type Date Status Bees anaphylaxis Non Drug Allergy Jan, Active ENCOUNTERS Encounter Location Date Diagnosis [facility] [address] [facility] [id number] [address] Jul, [facility] [address] [id number] [address] June, [place] [id number] [place] [address] 18977- 6180 June, Bipolar disorder, unspecified F31.9 ; Attention deficit hyperactivity disorder F90.9 ; High risk medication use Z79.899 and BMI 50.0- 59.9, adult Z68.43 [place] [id number] [place] [address] 11472- 7574 June, [place] [id number] [place] [address] 68183- 6284 June, Hidradenitis suppurativa L73.2 and BMI 50.0-59.9, adult Z68.43 [place] [id number] [place] [address] 82539- 2854 June, Bipolar disorder, unspecified F31.9 and BMI 50.0-59.9, adult Z68.43 [place] [id number] [place] [address] 56259- 9204 May, [place] [id number] [place] [address] 76151- 2094 May, Lumbago with sciatica, left side M54.42 ; care and examination Z39.2 ; Lumbago with sciatica, right side M54.41 ; Other chronic pain G89.29 ; BMI 50.0-59.9, adult Z68.43 ; Abdominal pannus E65 ; Suppurative hidradenitis L73.2 and Post depression F53 [place] [id number] [place] [address] 78375- 8404 Apr, [place] [id number] [place] [address] 34697- 9564 Apr, Abdominal pannus E65 and BMI 45.0-49.9, adult Z68.42 [place] [id number] [place] [address] 36962- 8715 Apr, Screening for iron deficiency anemia Z13.0 [place] [address] [address] 2[address] Apr, Bipolar disorder, unspecified F31.9 [place] [id number] [place] [address] 38963- 8513 07 Apr, 2017 Obesity during in third trimester O99.213 ; Third trimester Z34.93 ; Gestational diabetes mellitus (GDM) in third trimester controlled on oral hypoglycemic drug O24.415 ; 37 weeks gestation of Z3A.37 and Oligohydramnios in third trimester, single or unspecified fetus O41.03X0 [place] [id number] [place] [address] 75280- 4723 28 Mar, 2017 Third trimester Z34.93 [place] [id number] [place] [address] 90342- 1924 26 Mar, 2017 Gestational diabetes mellitus (GDM) in third trimester controlled on oral hypoglycemic drug O24.415 [place] [id number] [place] [address] 40148- 1749 Mar, [place] [id number] [place] [address] 69891- 8145 Mar, Third trimester Z34.93 ; Gestational diabetes mellitus (GDM) in third trimester controlled on oral hypoglycemic drug O24.415 and 35 weeks gestation of Z3A.35 [place] [id number] [place] [address] 57099- 9922 15 Mar, 2017 BMI 50.0-59.9, adult Z68.43 and Bipolar disorder, unspecified F31.9 [place] [id number] [place] [address] 88224- 1704 13 Mar, 2017 Diet controlled gestational diabetes mellitus (GDM), antepartum O24.410 [place] [address] [place] [address] 57515- 8370 07 Mar, 2017 33 weeks gestation of Z3A.33 ; Gestational diabetes mellitus (GDM) in third trimester controlled on oral hypoglycemic drug O24.415 ; Third trimester Z34.93 and Obesity affecting in third trimester O99.213 [place] [address] [place] [address] 43678- 5705 Mar, [place] [id number] [place] [address] 25257- 6334 Feb, Third trimester Z34.93 ; Encounter for immunization Z23 ; Gestational diabetes mellitus (GDM) in third trimester controlled on oral hypoglycemic drug O24.415 ; Obesity during in third trimester O99.213 and 31 weeks gestation of Z3A.31 [place] [id number] [place] [address] 21731- 8468 Feb, [place] [id number] [place] [address] 54123- 6615 Feb, Gestational diabetes mellitus (GDM) in third trimester, gestational diabetes method of control unspecified O24.419 [place] [id number] [place] [address] 37860- 2596 Feb, [place] [id number] [place] [address] 23540- 7812 Feb, [place] [id number] [place] [address] 80427- 3379 Feb, Bipolar disorder, unspecified F31.9 and BMI 50.0-59.9, adult Z68.43 [place] [id number] [place] [address] 86750- 4445 10 Feb, 2017 29 weeks gestation of Z3A.29 ; Gestational diabetes mellitus (GDM) in third trimester, gestational diabetes method of control unspecified O24.419 ; Third trimester Z34.93 ; Obesity affecting in third trimester O99.213 and BMI 50.0-59.9, adult Z68.43 [place] [address] [place] [address] 00457- 7594 Jan, Abnormal glucose tolerance test (GTT) R73.02 [place] [address] [id number] [place] [address] [id number] 15 Jan, 2017 Dental examination Z01.20 [place] [id number] [place] [address] 44515- 4087 14 Jan, 2017 Bipolar disorder, unspecified F31.9 [place] [id number] [place] [address] 73134- 7599 12 Jan, 2017 25 weeks gestation of Z3A.25 ; Second trimester Z34.92 ; Gastro-esophageal reflux disease without esophagitis K21.9 ; Diseases of the digestive system complicating , second trimester O99.612 ; Abnormal ultrasonic finding on screening of mother O28.3 and BMI 50.0-59.9, adult Z68.43 [place] [address] 60695- 1487 05 Jan, 2017 [place] [address] 29179- 0460 30 Dec, 2016 [place] [address] 02536- 2217 14 Dec, 2016 Dental examination Z01.20 [place] [address] 69997- 3859 14 Dec, 2016 Second trimester Z34.92 ; 21 weeks gestation of Z3A.21 and Obesity affecting in second trimester O99.212 [place] [id number] [place] [address] 07912- 7268 13 Dec, 2016 [place] [address] 55390- 5568 10 Dec, 2016 Lump of right breast N63.10 ; Abscess of left thigh L02.416 and BMI 45.0-49.9, adult Z68.42 [facility] [id number] [place] [address] [id number] 10 Dec, 2016 Dental examination Z01.20 [place] [id number] [place] [address] 16271- 4824 08 Dec, 2016 [facility] [address] [address] 0806 Dec, Bipolar disorder, unspecified F31.9 [facility] [address] [id number] [address] 1467 Nov, [facility] [id number] [place] [address] 59695- 9801 Nov, [facility] [id number] [place] [address] 19451- 2309 Nov, 17 weeks gestation of Z3A.17 and Right non- suppurative otitis media H65.91 [facility] [id number] [place] [address] 38582- 8488 Nov, [facility] [id number] [place] [address] 08789- 2788 Nov, [facility] [id number] [place] [address] 02936- 2243 Nov, Bipolar disorder, unspecified F31.9 [facility] [id number] [place] [address] 49578- 9051 10 Nov, 2016 16 weeks gestation of Z3A.16 ; Second trimester Z34.92 and Obesity affecting in second trimester O99.212 [facility] [address] [id number] Nov, Encounter for dental examination Z01.20 [facility] [id number] [place] [address] 22834- 1243 Oct, [facility] [id number] [place] [address] 30793- 7464 Oct, 12 weeks gestation of Z3A.12 ; First trimester Z34.90 and Obesity affecting in first trimester O99.211 [facility] [address] [address]- 3981 Sep, [facility] [id number] [place] [address] 87937- 9307 Sep, [place] [id number] [place] [address] 76398- 2093 Sep, Bipolar disorder, unspecified F31.9 [place] [id number] [place] [address] 55911- 2442 Sep, [place] [id number] [place] [address] 21548- 7134 Sep, [place] [id number] [place] [address] 61432- 7703 Sep, Normal , first Z34.00 [place] [id number] [place] [address] 68996- 0685 Sep, Normal , first Z34.00 ; 8 weeks gestation of Z3A.08 and Obesity affecting in first trimester O99.211 [place] [id number] [place] [address] 88086- 2386 Sep, Anxiety disorder, unspecified F41.9 [place] [id number] [place] [address] 32296- 2537 Sep, [place] [id number] [place] [address] 60756- 8450 Sep, Encounter for test, result unknown Z32.00 [place] [id number] [place] [address] 48330- 5942 Aug, Anxiety disorder, unspecified F41.9 [place] [id number] [place] [address] 41088- 7733 Jul, Suppurative hidradenitis L73.2 ; Metabolic syndrome E88.81 ; BMI 40.0-44.9, adult Z68.41 and High risk sexual behavior Z72.51 [place] [id number] [place] [address] 20180- 8522 Jul, Anxiety disorder, unspecified F41.9 [place] [id number] [place] [address] 06476- 1326 June, Anxiety disorder, unspecified F41.9 ; Attention deficit hyperactivity disorder F90.9 and Bipolar disorder, unspecified F31.9 [place] [id number] [place] [address] 41719- 9839 June, Attention deficit hyperactivity disorder F90.9 [place] [id number] [place] [address] 67505- 8278 May, Attention deficit hyperactivity disorder F90.9 [place] [id number] [place] [address] 84324- 9059 Apr, Attention deficit hyperactivity disorder F90.9 [place] [id number] [place] [address] 44916- 1086 14 Mar, 2016 Abscess L02.91 and Screening for STD sexually transmitted disease Z11.3 [place] [id number] [place] [address] 36773- 8600 Mar, Attention deficit hyperactivity disorder F90.9 [place] [id number] [place] [address] 31790- 3849 Feb, Attention deficit hyperactivity disorder F90.9 [place] [id number] [place] [address] 10213- 6187 Feb, Attention deficit disorder of adult F98.8 and DMDD ( disruptive mood dysregulation disorder) F34.81 [place] [id number] [place] [address] 97717- 3966 Jan, Exposure to sexually transmitted disease (STD) Z20.2 and Metabolic syndrome E88.81 [place] [id number] [place] [address] 91332- 6869 Jan, Possible exposure to STD Z20.2 ; BMI 40.0-44.9, adult Z68.41 ; Metabolic syndrome E88.81 ; Elevated fasting glucose R73.01 and Hypertriglyceridemia E78.1 [place] [address] [place] [address]- 7426 Jan, Possible exposure to STD Z20.2 ; Lumbago with sciatica, left side M54.42 ; Lumbago with sciatica, right side M54.41 ; BMI 40.0-44.9, adult Z68.41 ; Metabolic syndrome E88.81 ; Elevated fasting glucose R73.01 ; Hypertriglyceridemia E78.1 and Suppurative hidradenitis L73.2 [facility] [id number] [place] [address] 18064- 7766 Dec, Attention deficit hyperactivity disorder F90.9 [facility] [id number] [place] [address] 12486- 8747 Dec, [facility] [id number] [place] [address] 96717- 5786 Nov, [facility] [id number] [place] [address] 61691- 0019 Nov, [facility] [id number] [place] [address] 82718- 0786 Nov, [facility] [id number] [place] [address] 00821- 5476 Nov, [facility] [id number] [place] [address] 77857- 6811 30 Oct, 2015 Lumbago with sciatica, left side M54.42 and Other chronic pain G89.29 [facility] [id number] [place] [address] 45568- 3834 Oct, Lumbago with sciatica, left side M54.42 ; Lumbago with sciatica, right side M54.41 ; Other chronic pain G89.29 and Suppurative hidradenitis L73.2 [facility] [id number] [place] [address] 85242- 6379 Oct, [facility] [id number] [place] [address] 57523- 3591 Sep, [facility] [address] [address]- 3153 Sep, Unprotected sexual intercourse Z72.51 ; Hidradenitis suppurativa L73.2 ; Elevated fasting glucose R73.01 ; BMI 40.0-44.9, adult Z68.41 and Irregular menses N92.6 [facility] [id number] [place] [address] 17616- 5853 Aug, [place] [id number] [place] [address] 23035- 8763 Jul, Routine health maintenance Z00.00 ; Abscess L02.91 ; H/O hidradenitis suppurativa Z87.2 ; Irregular menses N92.6 ; BMI 40.0-44.9, adult Z68.41 ; Elevated fasting glucose R73.01 and Hypertriglyceridemia E78.1 [place] [id number] [place] [address] 73434- 7302 Jul, [facility] [id number] [place] [address] 57200 -9716 Jul, Hidradenitis suppurativa L73.2 [place] [id number] [place] [address] 25742- 8334 Jul, Bipolar disorder, unspecified F31.9 ; Anxiety disorder, unspecified F41.9 and Attention deficit hyperactivity disorder F90.9 [place] [id number] [place] [address] 44743- 9511 June, [place] [id number] [place] [address] 51990- 1159 June, [facility] [id number] [place] [address] 85476- 4916 May, [facility] [id number] [place] [address] 36203- 4066 Apr, [facility] [id number] [place] [address] 48111- 2963 16 Apr, 2016 Well woman exam Z01.419 ; BMI 40.0-44.9, adult Z68.41 ; Tobacco use Z72.0 ; Family history of diabetes mellitus Z83.3 ; Hidradenitis suppurativa L73.2 ; Routine screening for STI (sexually transmitted infection) Z11.3 ; Unprotected sexual intercourse Z72.51 and Family history of breast cancer Z80.[address] 35716- 2733 09 Apr, 2015 Bipolar disorder, unspecified F31.9 ; Anxiety disorder, unspecified F41.9 and Attention deficit hyperactivity disorder F90.[address] 70157- 6072 Mar, [address] 25355- 9096 Feb, [address] 64588- 5211 Feb, [address] 15138- 1453 Jan, Encounter for test, result negative Z32.02 and BMI 40.0-44.9, adult Z68.[address] 02391- 2594 Jan, Bipolar disorder, unspecified F31.9 ; Anxiety disorder, unspecified F41.9 and Attn-defct hyperactivity disorder, predom inattentive type F90.0 [place] [id number] [place] [address] 86352- 4948 Jan, [address] 78380- 5009 Dec, [place] [id number] [place] [address] 84136- 6655 Dec, Bipolar disorder, unspecified F31.9 ; Attention deficit hyperactivity disorder F90.9 and Anxiety disorder, unspecified F41.9 [facility] [address] [address]- 7549 27 Nov, 2014 Irregular menses N92.6 ; Unprotected sexual intercourse Z72.51 ; Screening for STD sexually transmitted disease Z11.3 ; General counseling and advice for contraceptive management Z30.09 ; Oral contraceptive pill surveillance Z30.41 ; BMI 40.0-44.9, adult Z68.41 and H/O hidradenitis suppurativa Z87.2 [facility] [id number] [place] [address] [id number] Sep, Dental examination V72.2 [facility] [id number] [place] [address] 016629- 6116 Sep, Screen for STD (sexually transmitted disease) V74.5 and General counseling on prescription of oral contraceptives V25.01 [facility] [id number] [place] [address] 718197- 2003 14 May, 2014 [facility] [id number] [place] [address] 21304- 8641 May, [facility] [id number] [place] [address] 499042- 4208 Apr, [facility] [id number] [place] [address] 10576604- 5582 Apr, [facility] [address] [address]- 1909 Apr, [facility] [id number] [place] [address] [id number]- 0867 Apr, [facility] [id number] [place] [address] [id number]- 4041 Apr, [facility] [id number] [place] [address] [id number]- 1116 Apr, [facility] [address] [address]- 1466 Apr, [facility] [address] [place] [address]- 5870 Mar, 2014 [facility] [place] [facility] [address] [id number] [place] [address]- 8836 Mar, 2014 [facility] [place] [facility] [address] [id number] [place] [address]- 1736 Mar, 2014 [facility] [place] [facility] [address] [id number] [place] [address]- 5884 Mar, 2014 [facility] [place] [facility] [address] [id number] [place] [address]- 0871 Mar, 2014 [facility] [place] [facility] [address] [id number] [place] [address]- 9142 Mar, 2014 [facility] [place] [facility] [address] [id number] [place] [address]- 1398 Jan, [facility] [place] [facility] [address] [id number] [place] [address]- 3479 Jan, [facility] [place] [facility] [address] [id number] [place] [address]- 1305 Dec, [facility] [place] [facility] [address] [id number] [place] [address]- 5125 Dec, [facility] [place] [facility] [address] [id number] [place] [address]- 5917 Dec, [facility] [place] [facility] [address] [id number] [place] [address]- 3949 Dec, [facility] [place] [facility] [address] [id number] [place] [address]- 8663 Sep, [facility] [place] [facility] [address] [id number] [place] [address]- 3963 Sep, [facility] [place] [facility] [address] [id number] [place] [address]- 9095 Apr, [facility] [place] [facility] [address] [id number] [place] [address]- 4868 Apr, [facility] [id number] 5077 Mar, [facility] [address] [address]- 7226 Mar, [facility] [address] 5555 Mar, [facility] [id number] [place] [address] 11083- 7912 Mar, [facility] [id number] [place] [address] 547344- 6343 Jan, [facility] [id number] [place] [address] 736545- 7973 Jan, [facility] [id number] [place] [address] [phone] Dec, [facility] [id number] [phone] Dec, [facility] [id number] [phone] Dec, IMMUNIZATIONS No Known Immunizations SOCIAL HISTORY Never Assessed REASON FOR VISIT DO #12 PLAN OF CARE Activity Details Follow Up prn Reason:Cleaning VITAL SIGNS MEDICATIONS Medication Instructions Dosage Frequency Start Date End Date Duration Status Vitamins - (Dis) Active Ranitidine HCl 75 MG Orally Twice a day 1 tablet as needed 12h 12 Jan, 2017 Active RESULTS No Results PROCEDURES Procedure Date Ordered Result Body Site RESIN COMPOS - 2 SURFACES POSTERIOR Jan 27, 2017 Billing Notes on claim Jan 27, 2017 INSTRUCTIONS MEDICATIONS ADMINISTERED No Known Medications MEDICAL (GENERAL) HISTORY Type Description Date Medical History Hidradenitis Supprativa Medical History Bipolar Disorder Medical History ADHD Medical History Due May 14, 2017 Surgical History pilonidal cyst removal tailbone Surgical History 2018 Hospitalization History Dehydration & concussion 07/23/2016 Hospitalization History child 2018
--- OUTSIDE RECORDS SUMMARY | 2017-09-24 22:58 | XMS REPORT ---
Author Author EVERARDO HUNT [facility] Address [address] [place] [address] Care Team Providers Care T[employer]or [employer] Name Role Phone EVERARDO HUNT Unavailable PROBLEMS Type Condition ICD9-CM Code FVS41-PH Code Onset Dates Condition Status SNOMED Code Problem Metabolic syndrome E88.81 Active 023322622 Problem Gastro-esophageal reflux disease without esophagitis K21.9 Active 487546016 Problem Obesity affecting in second trimester O99.212 Active 717494617928 Problem Gestational diabetes mellitus (GDM) in third trimester, gestational diabetes method of control unspecified O24.419 Active 28078847 Problem Abdominal pannus E65 Active 3966739714794 Problem Obesity affecting in third trimester O99.213 Active 540410920752 Problem BMI 50.0-59.9, adult Z68.43 Active 280242651 Problem Obesity during in third trimester O99.213 Active 888740044 Problem Gestational diabetes mellitus (GDM) in third trimester controlled on oral hypoglycemic drug O24.415 Active 70951061 Problem Anxiety disorder, unspecified F41.9 Active 726416774 Problem Bipolar disorder, unspecified F31.9 Active 68731751 Problem Lumbago with sciatica, left side M54.42 Active 032444708 Problem Lumbago with sciatica, right side M54.41 Active 889923933 Problem Hypertriglyceridemia E78.1 Active 481208231 Problem Other chronic pain G89.29 Active 83938725 Problem Suppurative hidradenitis L73.2 Active 63388381 Problem Attention deficit hyperactivity disorder F90.9 Active 922617779 ALLERGIES Substance Reaction Event Type Date Status Bees anaphylaxis Non Drug Allergy Sep, Active ENCOUNTERS Encounter Location Date Diagnosis [facility] [address] [facility] [id number] [address] May, [facility] [id number] [address] Apr, [place] [address], [place] [address] Apr, Abdominal pannus E65 and BMI 45.0-49.9, adult Z68.42 [place] [address], [place] [address] Apr, Screening for iron deficiency anemia Z13.0 [place] [id number] [place] [address] 74239- 9500 15 Apr, 2017 Bipolar disorder, unspecified F31.9 [place] [id number] [place] [address] 85266- 6831 07 Apr, 2017 Obesity during in third trimester O99.213 ; Third trimester Z34.93 ; Gestational diabetes mellitus (GDM) in third trimester controlled on oral hypoglycemic drug O24.415 ; 37 weeks gestation of Z3A.37 and Oligohydramnios in third trimester, single or unspecified fetus O41.03X0 [place] [address], [place] [address] 28 Mar, 2017 Third trimester Z34.93 [place] [id number] [place] [address] 85492- 3475 26 Mar, 2017 Gestational diabetes mellitus (GDM) in third trimester controlled on oral hypoglycemic drug O24.415 [place] [address], [place] [address] 8[address] Mar, [place] [address], [place] [address] 9543 Mar, Third trimester Z34.93 ; Gestational diabetes mellitus (GDM) in third trimester controlled on oral hypoglycemic drug O24.415 and 35 weeks gestation of Z3A.35 [place] [address], [place] [address]- 5778 15 Mar, 2017 BMI 50.0-59.9, adult Z68.43 and Bipolar disorder, unspecified F31.9 [place] [address], [place] [address] 9027 13 Mar, 2017 Diet controlled gestational diabetes mellitus (GDM), antepartum O24.410 [place] [id number] [place] [address] 69283- 9391 07 Mar, 2017 33 weeks gestation of Z3A.33 ; Gestational diabetes mellitus (GDM) in third trimester controlled on oral hypoglycemic drug O24.415 ; Third trimester Z34.93 and Obesity affecting in third trimester O99.213 [place] [id number] [place] [address] 74272- 8380 Mar, [place] [id number] [place] [address] 85357- 8172 24 Feb, 2017 Third trimester Z34.93 ; Encounter for immunization Z23 ; Gestational diabetes mellitus (GDM) in third trimester controlled on oral hypoglycemic drug O24.415 ; Obesity during in third trimester O99.213 and 31 weeks gestation of Z3A.31 [place] [id number] [place] [address] 20901- 8260 Feb, [place] [id number] [place] [address] 40792- 5528 Feb, Gestational diabetes mellitus (GDM) in third trimester, gestational diabetes method of control unspecified O24.419 [place] [address], [place] [address]- 1058 Feb, [place] [address] [place] [address] 90076- 2314 Feb, [place] [address] [place] [address] 87220- 1368 Feb, Bipolar disorder, unspecified F31.9 and BMI 50.0-59.9, adult Z68.43 [place] [address] [place] [address] 91293- 9659 Feb, 29 weeks gestation of Z3A.29 ; Gestational diabetes mellitus (GDM) in third trimester, gestational diabetes method of control unspecified O24.419 ; Third trimester Z34.93 ; Obesity affecting in third trimester O99.213 and BMI 50.0-59.9, adult Z68.43 [place] [id number] [place] [address] 63340- 9351 15 Jan, 2017 Abnormal glucose tolerance test (GTT) R73.02 [facility] [address] [id number] 15 Jan, 2017 Dental examination Z01.20 [place] [address] [address]- 5850 14 Jan, 2017 Bipolar disorder, unspecified F31.[address] 39628- 2118 12 Jan, 2017 25 weeks gestation of Z3A.25 ; Second trimester Z34.92 ; Gastro-esophageal reflux disease without esophagitis K21.9 ; Diseases of the digestive system complicating , second trimester O99.612 ; Abnormal ultrasonic finding on screening of mother O28.3 and BMI 50.0-59.9, adult Z68.43 [place] [address] 81975- 4222 05 Jan, 2017 [place] [id number] [place] [address] 92150- 8213 30 Dec, 2016 [place] [id number] [place] [address] 99129- 0185 14 Dec, 2016 Dental examination Z01.20 [place] [address] 15660- 6634 14 Dec, 2016 Second trimester Z34.92 ; 21 weeks gestation of Z3A.21 and Obesity affecting in second trimester O99.212 [place] [id number] [place] [address] 95076- 4890 13 Dec, 2016 [place] [address] 50414- 7879 10 Dec, 2016 Lump of right breast N63.10 ; Abscess of left thigh L02.416 and BMI 45.0-49.9, adult Z68.42 [facility] [address] [address] Dec, Dental examination Z01.20 [facility] [address], [place] [address]- 6478 08 Dec, 2016 [facility] [id number] [place] [address] 03214- 2204 Dec, Bipolar disorder, unspecified F31.9 [facility] [address], [place] [address]- 1495 Nov, [facility] [id number] [place] [address] 67769- 5429 Nov, [facility] [address] [place] [address] 40740- 2495 Nov, 17 weeks gestation of Z3A.17 and Right non- suppurative otitis media H65.91 [facility] [address], [place] [address]- 1469 Nov, [facility] [id number] [place] [address] 63426- 9836 Nov, [facility] [address] [place] [address] 59804- 1918 Nov, Bipolar disorder, unspecified F31.9 [facility] [address] [place] [address] 52715- 9204 Nov, 16 weeks gestation of Z3A.16 ; Second trimester Z34.92 and Obesity affecting in second trimester O99.212 [facility] [address] [place] [address] [id number] 03 Nov, 2016 Encounter for dental examination Z01.20 [facility] [address], [place] [address]- 9068 13 Oct, 2016 [facility] [address], [place] [address]- 6680 Oct, 12 weeks gestation of Z3A.12 ; First trimester Z34.90 and Obesity affecting in first trimester O99.211 [facility] [address], [place] [address]- 2422 Sep, [facility] [address], [place] [address]- 1084 Sep, [facility] [id number] [place] [address] 16227- 4935 Sep, Bipolar disorder, unspecified F31.9 [facility] [id number] [place] [address] 85859- 4325 Sep, [facility] [id number] [place] [address] 97288- 5597 Sep, [facility] [id number] [place] [address] 63747- 9493 Sep, Normal , first Z34.00 [facility] [id number] [place] [address] 70241- 4163 Sep, Normal , first Z34.00 ; 8 weeks gestation of Z3A.08 and Obesity affecting in first trimester O99.211 [facility] [address], [place] [address]- 7167 Sep, Anxiety disorder, unspecified F41.9 [facility] [address], [place] [address]- 1622 Sep, [facility] [address], [place] [address]- 0432 Sep, Encounter for test, result unknown Z32.00 [facility] [address], [place] [address]- 8750 Aug, Anxiety disorder, unspecified F41.9 [facility] [id number] [place] [address] 23569- 7265 Jul, Suppurative hidradenitis L73.2 ; Metabolic syndrome E88.81 ; BMI 40.0-44.9, adult Z68.41 and High risk sexual behavior Z72.51 [place] [address] [place] [address] 59478- 6922 Jul, Anxiety disorder, unspecified F41.9 [place] [id number] [place] [address] 17951- 6415 June, Anxiety disorder, unspecified F41.9 ; Attention deficit hyperactivity disorder F90.9 and Bipolar disorder, unspecified F31.9 [place] [id number] [place] [address] 80794- 1226 June, Attention deficit hyperactivity disorder F90.9 [place] [id number] [place] [address] 78530- 6096 May, Attention deficit hyperactivity disorder F90.9 [place] [id number] [place] [address] 82801- 3965 Apr, Attention deficit hyperactivity disorder F90.9 [place] [id number] [place] [address] 10381- 0304 14 Mar, 2016 Abscess L02.91 and Screening for STD sexually transmitted disease Z11.3 [place] [id number] [place] [address] 58534- 4715 Mar, Attention deficit hyperactivity disorder F90.9 [place] [id number] [place] [address] 55923- 1732 Feb, Attention deficit hyperactivity disorder F90.9 [place] [id number] [place] [address] 62631- 1576 Feb, Attention deficit disorder of adult F98.8 and DMDD ( disruptive mood dysregulation disorder) F34.81 [place] [address] [place] [address] 55712- 7003 09 Jan, 2016 Exposure to sexually transmitted disease (STD) Z20.2 and Metabolic syndrome E88.81 [facility] [id number] [place] [address] 42623- 8274 Jan, Possible exposure to STD Z20.2 ; BMI 40.0-44.9, adult Z68.41 ; Metabolic syndrome E88.81 ; Elevated fasting glucose R73.01 and Hypertriglyceridemia E78.1 [place] [id number] [place] [address] 94707- 1960 Jan, Possible exposure to STD Z20.2 ; Lumbago with sciatica, left side M54.42 ; Lumbago with sciatica, right side M54.41 ; BMI 40.0-44.9, adult Z68.41 ; Metabolic syndrome E88.81 ; Elevated fasting glucose R73.01 ; Hypertriglyceridemia E78.1 and Suppurative hidradenitis L73.2 [place] [id number] [place] [address] 77637- 2826 Dec, Attention deficit hyperactivity disorder F90.9 [place] [id number] [place] [address] 55934- 3990 Dec, [place] [address] 05843- 2117 Nov, [facility] [id number] [place] [address] 98190- 0206 Nov, [place] [id number] [place] [address] 89022- 4680 Nov, [facility] [id number] [place] [address] 96300- 9975 Nov, [facility] [id number] [place] [address] 60054- 9430 Oct, Lumbago with sciatica, left side M54.42 and Other chronic pain G89.29 [facility] [address] [place] [address] 15735- 8471 Oct, Lumbago with sciatica, left side M54.42 ; Lumbago with sciatica, right side M54.41 ; Other chronic pain G89.29 and Suppurative hidradenitis L73.2 [facility] [id number] [place] [address] 58303- 9638 Oct, [facility] [id number] [place] [address] 17220- 9485 Sep, [facility] [address] 71866- 2140 Sep, Unprotected sexual intercourse Z72.51 ; Hidradenitis suppurativa L73.2 ; Elevated fasting glucose R73.01 ; BMI 40.0-44.9, adult Z68.41 and Irregular menses N92.6 [place] [id number] [place] [address] 62890- 2815 Aug, [place] [id number] [place] [address] 08956- 4577 Jul, Routine health maintenance Z00.00 ; Abscess L02.91 ; H/O hidradenitis suppurativa Z87.2 ; Irregular menses N92.6 ; BMI 40.0-44.9, adult Z68.41 ; Elevated fasting glucose R73.01 and Hypertriglyceridemia E78.1 [place] [address] [id number] [place] [address] 95331- 7727 Jul, [facility] [id number] [place] [address] 85769 -1166 Jul, Hidradenitis suppurativa L73.2 [facility] [id number] [place] [address] 49460- 1624 Jul, Bipolar disorder, unspecified F31.9 ; Anxiety disorder, unspecified F41.9 and Attention deficit hyperactivity disorder F90.9 [facility] [id number] [place] [address] 01562- 9083 June, [place] [address] 43646- 2264 June, [place] [address] [place] [address] 54519- 6398 May, [place] [id number] [place] [address] 649299- 7169 Apr, [place] [address] [place] [address] 86181- 2694 Apr, Well woman exam Z01.419 ; BMI 40.0-44.9, adult Z68.41 ; Tobacco use Z72.0 ; Family history of diabetes mellitus Z83.3 ; Hidradenitis suppurativa L73.2 ; Routine screening for STI (sexually transmitted infection) Z11.3 ; Unprotected sexual intercourse Z72.51 and Family history of breast cancer Z80.3 [place] [id number] [place] [address] 71359- 7072 Apr, Bipolar disorder, unspecified F31.9 ; Anxiety disorder, unspecified F41.9 and Attention deficit hyperactivity disorder F90.9 [place] [id number] [place] [address] 48502- 5113 Mar, [place] [id number] [place] [address] 67017- 0977 Feb, [place] [id number] [place] [address] 36779- 3363 Feb, [place] [address] [place] [address] 48255- 3135 Jan, Encounter for test, result negative Z32.02 and BMI 40.0-44.9, adult Z68.41 [place] [address] [place] [address] 28962- 2311 Jan, Bipolar disorder, unspecified F31.9 ; Anxiety disorder, unspecified F41.9 and Attn-defct hyperactivity disorder, predom inattentive type F90.0 [place] [id number] [place] [address] 81316- 8007 Jan, [facility] [address] [place] [address] 004615- 1153 Dec, [facility] [id number] [place] [address] 335128- 2918 Dec, Bipolar disorder, unspecified F31.9 ; Attention deficit hyperactivity disorder F90.9 and Anxiety disorder, unspecified F41.9 [facility] [id number] [place] [address] 882736- 8468 Nov, Irregular menses N92.6 ; Unprotected sexual intercourse Z72.51 ; Screening for STD sexually transmitted disease Z11.3 ; General counseling and advice for contraceptive management Z30.09 ; Oral contraceptive pill surveillance Z30.41 ; BMI 40.0-44.9, adult Z68.41 and H/O hidradenitis suppurativa Z87.2 [facility] [id number] [place] [address] [id number] Sep, Dental examination V72.2 [place] [address] [place] [address] 53942- 7540 Sep, Screen for STD (sexually transmitted disease) V74.5 and General counseling on prescription of oral contraceptives V25.01 [facility] [address] [place] [address] 154211- 2545 May, [facility] [id number] [place] [address] 19884- 8909 May, [facility] [id number] [place] [address] 39386- 1951 Apr, [facility] [id number] [place] [address] 953374- 4045 Apr, [facility] [id number] [place] [address] 462552- 1179 Apr, [facility] [id number] [place] [address] 56490884- 3654 Apr, [facility] [address] [facility] [id number] [place] [address]- 4593 10 Apr, 2014 [facility] [place] [facility] [address] [id number] [place] [address]- 3983 Apr, 2014 [facility] [place] [facility] [address] [id number] [place] [address]- 6732 Apr, 2014 [facility] [place] [facility] [address] [id number] [place] [address]- 8294 Mar, 2014 [facility] [place] [facility] [address] [id number] [place] [address]- 9548 Mar, 2014 [facility] [place] [facility] [address] [id number] [place] [address]- 8433 Mar, 2014 [facility] [place] [facility] [address] [facility] [id number] [place] [address]- 2173 Mar, 2014 [facility] [place] [facility] [address] [facility] [id number] [place] [address]- 1670 Mar, 2014 [facility] [place] [facility] [address] [id number] [place] [address]- 4008 Mar, 2014 [facility] [place] [facility] [address] [facility] [id number] [place] [address]- 8302 Jan, [facility] [place] [facility] [address] [facility] [id number] [place] [address]- 1062 Jan, [facility] [place] [facility] [address] [id number] [place] [address]- 6405 Dec, [facility] [place] [facility] [address] [id number] [place] [address]- 4601 Dec, [facility] [place] [facility] [address] [id number] [place] [address]- 6961 Dec, [facility] [place] [facility] [address] [facility] [id number] [place] [address]- 2106 Dec, [facility] [place] [facility] [id number] [place] [address] 15372- 8822 Sep, [facility] [address], [place] [address]- 1072 Sep, [facility] [address]- 3769 Apr, [facility] [address] 2660 Apr, [facility] [address] [place] [address] 003765- 7689 Mar, [facility] [address] [place] [address] 933847- 5749 Mar, [facility] [id number] [place] [address] 114922- 1072 Mar, [facility] [address] [place] [address] 270976- 1182 Mar, [facility] [address]- 6822 Jan, [facility] [id number] [place] [address] 451149- 7707 Jan, [facility] [address]- 5008 Dec, [facility] [address], [place] [address]- 9308 Dec, [facility] [address] [address]- 1381 Dec, IMMUNIZATIONS No Known Immunizations SOCIAL HISTORY Never Assessed [facility] CARE VITAL SIGNS MEDICATIONS Medication Instructions Dosage Frequency Start Date End Date Duration Status Vitamin 27-0.8 MG Active RESULTS No Results PROCEDURES No Known procedures INSTRUCTIONS MEDICATIONS ADMINISTERED No Known Medications MEDICAL (GENERAL) HISTORY Type Description Date Medical History Hidradenitis Supprativa Medical History Bipolar Disorder Medical History ADHD Medical History Due May 14, 2017 Surgical History pilonidal cyst removal tailbone Surgical History 2018 Hospitalization History Dehydration & concussion 07/23/2016
--- OUTSIDE RECORDS SUMMARY | 2017-09-24 22:58 | XMS REPORT ---
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 Name Role Phone GASTONVIVIAN Austin Unavailable PROBLEMS Type Condition ICD9-CM Code ENR13-ZF Code Onset Dates Condition Status SNOMED Code Problem Metabolic syndrome E88.81 Active 913575171 Problem Gastro-esophageal reflux disease without esophagitis K21.9 Active 557577869 Problem Obesity affecting in second trimester O99.212 Active 913230292415 Problem Gestational diabetes mellitus (GDM) in third trimester, gestational diabetes method of control unspecified O24.419 Active 47845772 Problem Abdominal pannus E65 Active 5732666473409 Problem Obesity affecting in third trimester O99.213 Active 420360046382 Problem BMI 50.0-59.9, adult Z68.43 Active 568017685 Problem Obesity during in third trimester O99.213 Active 616237544 Problem Gestational diabetes mellitus (GDM) in third trimester controlled on oral hypoglycemic drug O24.415 Active 12412680 Problem Anxiety disorder, unspecified F41.9 Active 094574500 Problem Bipolar disorder, unspecified F31.9 Active 70000346 Problem Lumbago with sciatica, left side M54.42 Active 159660974 Problem Lumbago with sciatica, right side M54.41 Active 880229043 Problem Hypertriglyceridemia E78.1 Active 008095198 Problem Other chronic pain G89.29 Active 08588694 Problem Suppurative hidradenitis L73.2 Active 38343833 Problem Attention deficit hyperactivity disorder F90.9 Active 496814801 ALLERGIES No Information ENCOUNTERS Encounter Location Date Diagnosis [facility] [address] [facility] [id number] [address] May, [facility] [id number] [address] Apr, [facility] [place] [id number] [place] [address] 56712- 1207 Apr, Abdominal pannus E65 and BMI 45.0-49.9, adult Z68.42 [facility] [place] [id number] [place] [address] 67773- 2193 20 Apr, 2017 Screening for iron deficiency anemia Z13.0 [facility] [id number] [place] [address] 61617- 9703 Apr, Bipolar disorder, unspecified F31.9 [facility] [place] [id number] [place] [address] 76400- 4751 07 Apr, 2017 Obesity during in third trimester O99.213 ; Third trimester Z34.93 ; Gestational diabetes mellitus (GDM) in third trimester controlled on oral hypoglycemic drug O24.415 ; 37 weeks gestation of Z3A.37 and Oligohydramnios in third trimester, single or unspecified fetus O41.03X0 [facility] [id number] [place] [address] 31537- 8922 Mar, Third trimester Z34.93 [facility] [place] [id number] [place] [address] 62699- 2673 Mar, Gestational diabetes mellitus (GDM) in third trimester controlled on oral hypoglycemic drug O24.415 [facility] [place] [id number] [place] [address] 47135- 4242 Mar, [facility] [place] [id number] [place] [address] 47096- 8009 Mar, Third trimester Z34.93 ; Gestational diabetes mellitus (GDM) in third trimester controlled on oral hypoglycemic drug O24.415 and 35 weeks gestation of Z3A.35 [facility] [place] [id number] [place] [address] 41017- 6686 15 Mar, 2017 BMI 50.0-59.9, adult Z68.43 and Bipolar disorder, unspecified F31.9 [facility] [place] [id number] [place] [address] 97719- 1868 13 Mar, 2017 Diet controlled gestational diabetes mellitus (GDM), antepartum O24.410 [place] [address] [place] [address] 45704- 9989 07 Mar, 2017 33 weeks gestation of Z3A.33 ; Gestational diabetes mellitus (GDM) in third trimester controlled on oral hypoglycemic drug O24.415 ; Third trimester Z34.93 and Obesity affecting in third trimester O99.213 [facility] [place] [id number] [place] [address] 20028- 8052 01 Mar, 2017 [place] [place] [id number] [place] [address] 14013- 1976 24 Feb, 2017 Third trimester Z34.93 ; Encounter for immunization Z23 ; Gestational diabetes mellitus (GDM) in third trimester controlled on oral hypoglycemic drug O24.415 ; Obesity during in third trimester O99.213 and 31 weeks gestation of Z3A.31 [facility] [place] [id number] [place] [address] 66085- 8102 Feb, [facility] [place] [id number] [place] [address] 40230- 6703 Feb, Gestational diabetes mellitus (GDM) in third trimester, gestational diabetes method of control unspecified O24.419 [place] [address] [place] [address] 91982- 6668 Feb, [place] [id number] [place] [address] 12540- 6148 Feb, [facility] [place] [id number] [place] [address] 92969- 1950 Feb, Bipolar disorder, unspecified F31.9 and BMI 50.0-59.9, adult Z68.43 [place] [address] [place] [address] 05235- 9570 10 Feb, 2017 29 weeks gestation of Z3A.29 ; Gestational diabetes mellitus (GDM) in third trimester, gestational diabetes method of control unspecified O24.419 ; Third trimester Z34.93 ; Obesity affecting in third trimester O99.213 and BMI 50.0-59.9, adult Z68.43 [place] [place] [id number] [place] [address] 97288- 4928 15 Jan, 2017 Abnormal glucose tolerance test (GTT) R73.02 [facility] [id number] [place] [address] [id number] 15 Jan, 2017 Dental examination Z01.20 [place] [place] [id number] [place] [address] 03921- 5311 14 Jan, 2017 Bipolar disorder, unspecified F31.9 [place] [address] 64847- 7816 12 Jan, 2017 25 weeks gestation of Z3A.25 ; Second trimester Z34.92 ; Gastro-esophageal reflux disease without esophagitis K21.9 ; Diseases of the digestive system complicating , second trimester O99.612 ; Abnormal ultrasonic finding on screening of mother O28.3 and BMI 50.0-59.9, adult Z68.43 [place] [place] [id number] [place] [address] 04176- 4981 05 Jan, 2017 [place] [address] 33992- 5669 30 Dec, 2016 [place] [place] [id number] [place] [address] 52867- 6923 14 Dec, 2016 Dental examination Z01.20 [facility] [place] [id number] [place] [address] 57307- 2906 14 Dec, 2016 Second trimester Z34.92 ; 21 weeks gestation of Z3A.21 and Obesity affecting in second trimester O99.212 [facility] [place] [id number] [place] [address] 91811- 6526 13 Dec, 2016 [place] [id number] [place] [address] 82634- 6328 10 Dec, 2016 Lump of right breast N63.10 ; Abscess of left thigh L02.416 and BMI 45.0-49.9, adult Z68.42 [facility] [address] [id number] Dec, Dental examination Z01.20 [facility] [address], [place] [address] 9293 08 Dec, 2016 [facility] [id number] [place] [address] 27630- 9586 Dec, Bipolar disorder, unspecified F31.9 [facility] [address] [place] [address] 22236- 6419 Nov, [facility] [id number] [place] [address] 67350- 8422 Nov, [facility] [id number] [place] [address] 26383- 1563 Nov, 17 weeks gestation of Z3A.17 and Right non- suppurative otitis media H65.91 [facility] [address] [place] [address] 80748- 2200 Nov, [facility] [id number] [place] [address] 76472- 3360 Nov, [facility] [id number] [place] [address] 16003- 2675 Nov, Bipolar disorder, unspecified F31.9 [facility] [id number] [place] [address] 65604- 6260 10 Nov, 2016 16 weeks gestation of Z3A.16 ; Second trimester Z34.92 and Obesity affecting in second trimester O99.212 [facility] [id number] [place] [address] [id number] 03 Nov, 2016 Encounter for dental examination Z01.20 [facility] [address] [address]- 5412 13 Oct, 2016 [facility] [id number] [place] [address] 91035- 5918 Oct, 12 weeks gestation of Z3A.12 ; First trimester Z34.90 and Obesity affecting in first trimester O99.211 [place] [id number] [place] [address] 75348- 8270 Sep, [facility] [id number] [place] [address] 89358- 3512 Sep, [facility] [id number] [place] [address] 47459- 0449 Sep, Bipolar disorder, unspecified F31.9 [place] [id number] [place] [address] 35175- 8741 Sep, [place] [id number] [place] [address] 16011- 1403 Sep, [place] [id number] [place] [address] 96988- 1576 Sep, Normal , first Z34.00 [place] [id number] [place] [address] 90461- 4028 Sep, Normal , first Z34.00 ; 8 weeks gestation of Z3A.08 and Obesity affecting in first trimester O99.211 [place] [id number] [place] [address] 41788- 4525 Sep, Anxiety disorder, unspecified F41.9 [place] [id number] [place] [address] 65425- 5842 Sep, [place] [id number] [place] [address] 85957- 8255 Sep, Encounter for test, result unknown Z32.00 [place] [id number] [place] [address] 91287- 0444 Aug, Anxiety disorder, unspecified F41.9 [facility] [id number] [place] [address] 75426- 9038 Jul, Suppurative hidradenitis L73.2 ; Metabolic syndrome E88.81 ; BMI 40.0-44.9, adult Z68.41 and High risk sexual behavior Z72.51 [place] [id number] [place] [address] 91283- 5771 Jul, Anxiety disorder, unspecified F41.9 [place] [id number] [place] [address] 35027- 3587 June, Anxiety disorder, unspecified F41.9 ; Attention deficit hyperactivity disorder F90.9 and Bipolar disorder, unspecified F31.9 [place] [id number] [place] [address] 86540- 4770 June, Attention deficit hyperactivity disorder F90.9 [place] [id number] [place] [address] 36780- 5965 May, Attention deficit hyperactivity disorder F90.9 [place] [id number] [place] [address] 24760- 2070 Apr, Attention deficit hyperactivity disorder F90.9 [place] [id number] [place] [address] 26194- 4971 14 Mar, 2016 Abscess L02.91 and Screening for STD sexually transmitted disease Z11.3 [place] [address] [place] [address] 49994- 3271 03 Mar, 2016 Attention deficit hyperactivity disorder F90.9 [place] [id number] [place] [address] 81056- 3781 Feb, Attention deficit hyperactivity disorder F90.9 [place] [id number] [place] [address] 16210- 6916 Feb, Attention deficit disorder of adult F98.8 and DMDD ( disruptive mood dysregulation disorder) F34.81 [place] [address], [place] [address]- 7951 09 Jan, 2016 Exposure to sexually transmitted disease (STD) Z20.2 and Metabolic syndrome E88.81 [place] [id number] [place] [address] 86385- 2153 Jan, Possible exposure to STD Z20.2 ; BMI 40.0-44.9, adult Z68.41 ; Metabolic syndrome E88.81 ; Elevated fasting glucose R73.01 and Hypertriglyceridemia E78.1 [facility] [place] [id number] [place] [address] 05812- 0353 Jan, Possible exposure to STD Z20.2 ; Lumbago with sciatica, left side M54.42 ; Lumbago with sciatica, right side M54.41 ; BMI 40.0-44.9, adult Z68.41 ; Metabolic syndrome E88.81 ; Elevated fasting glucose R73.01 ; Hypertriglyceridemia E78.1 and Suppurative hidradenitis L73.2 [place] [id number] [place] [address] 31202- 7722 Dec, Attention deficit hyperactivity disorder F90.9 [place] [id number] [place] [address] 85721- 5180 Dec, [facility] [id number] [place] [address] 47553- 5211 Nov, [place] [id number] [place] [address] 90976- 5817 Nov, [facility] [place] [id number] [place] [address] 74427- 2236 Nov, [place] [id number] [place] [address] 90269- 9027 Nov, [facility] [id number] [place] [address] 12621- 2145 30 Oct, 2015 Lumbago with sciatica, left side M54.42 and Other chronic pain G89.29 [facility] [id number] [place] [address] 03741- 0746 Oct, Lumbago with sciatica, left side M54.42 ; Lumbago with sciatica, right side M54.41 ; Other chronic pain G89.29 and Suppurative hidradenitis L73.2 [facility] [address], [place] [address]- 0725 Oct, [facility] [id number] [place] [address] 44754- 5099 Sep, [facility] [id number] [place] [address] 93725- 7440 Sep, Unprotected sexual intercourse Z72.51 ; Hidradenitis suppurativa L73.2 ; Elevated fasting glucose R73.01 ; BMI 40.0-44.9, adult Z68.41 and Irregular menses N92.6 [place] [id number] [place] [address] 75362- 3465 Aug, [place] [id number] [place] [address] 69240- 9957 Jul, Routine health maintenance Z00.00 ; Abscess L02.91 ; H/O hidradenitis suppurativa Z87.2 ; Irregular menses N92.6 ; BMI 40.0-44.9, adult Z68.41 ; Elevated fasting glucose R73.01 and Hypertriglyceridemia E78.1 [facility] [address], [place] [address]- 5068 Jul, [facility] [address], [place] [address] -8895 Jul, Hidradenitis suppurativa L73.2 [facility] [address] [place] [address] 75541- 9442 Jul, Bipolar disorder, unspecified F31.9 ; Anxiety disorder, unspecified F41.9 and Attention deficit hyperactivity disorder F90.9 [facility] [place] [address], [place] [address]- 5325 June, [facility] [id number] [place] [address] 25003- 0810 June, [place] [address] [place] [address] 91741- 1278 May, [id number] [place] [address] 83367- 7593 Apr, [place] [id number] [place] [address] 29956- 4085 Apr, Well woman exam Z01.419 ; BMI 40.0-44.9, adult Z68.41 ; Tobacco use Z72.0 ; Family history of diabetes mellitus Z83.3 ; Hidradenitis suppurativa L73.2 ; Routine screening for STI (sexually transmitted infection) Z11.3 ; Unprotected sexual intercourse Z72.51 and Family history of breast cancer Z80.3 [id number] [place] [address] 08203- 8445 Apr, Bipolar disorder, unspecified F31.9 ; Anxiety disorder, unspecified F41.9 and Attention deficit hyperactivity disorder F90.9 [id number] [place] [address] 19358- 3780 Mar, [id number] [place] [address] 91752- 3897 Feb, [id number] [place] [address] 38055- 6613 Feb, [id number] [place] [address] 89567- 4936 Jan, Encounter for test, result negative Z32.02 and BMI 40.0-44.9, adult Z68.41 [address] [place] [address] 77962- 1818 Jan, Bipolar disorder, unspecified F31.9 ; Anxiety disorder, unspecified F41.9 and Attn-defct hyperactivity disorder, predom inattentive type F90.0 [address] [place] [address] 90285- 5192 Jan, [id number] [place] [address] 97433- 9259 Dec, [facility] [place] [address] 04599- 4194 Dec, Bipolar disorder, unspecified F31.9 ; Attention deficit hyperactivity disorder F90.9 and Anxiety disorder, unspecified F41.9 [facility] [place] [address] 30432- 1153 Nov, Irregular menses N92.6 ; Unprotected sexual intercourse Z72.51 ; Screening for STD sexually transmitted disease Z11.3 ; General counseling and advice for contraceptive management Z30.09 ; Oral contraceptive pill surveillance Z30.41 ; BMI 40.0-44.9, adult Z68.41 and H/O hidradenitis suppurativa Z87.2 [facility] [address] [id number] Sep, Dental examination V72.2 [facility] [place] [address] 99759- 6815 Sep, Screen for STD (sexually transmitted disease) V74.5 and General counseling on prescription of oral contraceptives V25.01 [facility] [place] [id number] [place] [address] 14288- 8827 May, [facility] [place] [id number] [place] [address] 86458- 7810 May, [facility] [place] [id number] [place] [address] 53171- 7504 Apr, [facility] [id number] [place] [address] 16544- 6266 Apr, [facility] [place] [address] 34898- 4514 Apr, [facility] [place] [id number] [place] [address] 96150- 1985 Apr, [facility] [address] 72381- 2546 Apr, [facility] [place] [facility] [address] [id number] [place] [address]- 8625 Apr, [facility] [place] [facility] [address] [id number] [place] [address]- 1226 Apr, [facility] [place] [facility] [address] [facility] [id number] [place] [address]- 2221 Mar, 2014 [facility] [place] [facility] [address] [id number] [place] [address]- 9210 Mar, 2014 [facility] [place] [facility] [address] [id number] [place] [address]- 6947 Mar, 2014 [facility] [place] [facility] [address] [facility] [id number] [place] [address]- 0841 Mar, 2014 [facility] [place] [facility] [address] [facility] [id number] [place] [address]- 8197 Mar, 2014 [facility] [place] [facility] [address] [facility] [id number] [place] [address]- 9640 Mar, [facility] [place] [facility] [address] [facility] [id number] [place] [address]- 9673 Jan, [facility] [place] [facility] [address] [facility] [id number] [place] [address]- 9676 Jan, [facility] [place] [facility] [address] [facility] [id number] [place] [address]- 8933 Dec, [facility] [place] [facility] [address] [facility] [id number] [place] [address]- 1039 Dec, [facility] [place] [facility] [address] [facility] [id number] [place] [address]- 8519 Dec, [facility] [place] [facility] [address] [facility] [id number] [place] [address]- 4962 Dec, [facility] [place] [facility] [address] [facility] [id number] [place] [address]- 6376 Sep, [facility] [place] [facility] [address], [place] [address]- 9701 Sep, [facility] [place] [address] 3574 Apr, [facility] [place] [address] [address] Apr, [facility] [place] [id number] [place] [address] Mar, [facility] [place] [id number] [address] Mar, [facility] [place] [id number] [place] [address] Mar, [facility] [place] [id number] [address] Mar, [facility] [place] [id number] [address] Jan, [facility] [place] [address] [address] Jan, [facility] [place] [id number] [address] Dec, [facility] [place] [id number] [address] Dec, [facility] [place] [id number] [address] Dec, IMMUNIZATIONS No Known Immunizations SOCIAL HISTORY Never Assessed REASON FOR VISIT Lab (walk-in)--[facility] PLAN OF CARE VITAL SIGNS MEDICATIONS Unknown Medications RESULTS Name Result Date Reference Range TEST, URINE (IN HOUSE) 2016-09-15 RESULTS Positive Lot # [id number] Control + Exp date 04/12/18 PROCEDURES Procedure Date Ordered Result Body Site URINE TEST Sep 15, 2016 INSTRUCTIONS MEDICATIONS ADMINISTERED No Known Medications MEDICAL (GENERAL) HISTORY Type Description Date Medical History Hidradenitis Supprativa Medical History Bipolar Disorder Medical History ADHD Medical History Due May 14, 2017 Surgical History pilonidal cyst removal tailbone Surgical History 2018 Hospitalization History Dehydration & concussion 07/23/2016
[2017-09-24] MEDS ORDERED: CLINDAMYCIN 900 MG/50 ML IVPB 50 ML IV ONE (23:00)
[2017-09-24] MEDS ORDERED: ONDANSETRON 4 MG/2 ML (SDV) Z0FRAN IVP ONE (23:00)
[2017-09-24] MEDS ORDERED: KETOROLAC 30 MG/ML VIAL IVP ONE (23:00)
[2017-09-24] MEDS ORDERED: L.E.T. SYRINGE 5 ML TOP ONE (23:00)
--- OUTSIDE RECORDS SUMMARY | 2017-09-24 23:00 | XMS REPORT ---
Author Author RAI Harper Organization [facility] Address Unknown Care Team Providers Care Instrument Lens Generator Name Role Phone RAI Harper Unavailable PROBLEMS Type Condition ICD9-CM Code NAP92-TM Code Onset Dates Condition Status SNOMED Code Problem Metabolic syndrome E88.81 Active 423858702 Problem Gastro-esophageal reflux disease without esophagitis K21.9 Active 834221543 Problem Obesity affecting in second trimester O99.212 Active 016601358273 Problem Gestational diabetes mellitus (GDM) in third trimester, gestational diabetes method of control unspecified O24.419 Active 76413537 Problem Abdominal pannus E65 Active 1244085289747 Problem Obesity affecting in third trimester O99.213 Active 519136049128 Problem BMI 50.0-59.9, adult Z68.43 Active 389577267 Problem Obesity during in third trimester O99.213 Active 281141967 Problem Gestational diabetes mellitus (GDM) in third trimester controlled on oral hypoglycemic drug O24.415 Active 72606365 Problem Anxiety disorder, unspecified F41.9 Active 607183066 Problem Bipolar disorder, unspecified F31.9 Active 41760878 Problem Lumbago with sciatica, left side M54.42 Active 629226898 Problem Lumbago with sciatica, right side M54.41 Active 390151955 Problem Hypertriglyceridemia E78.1 Active 641825200 Problem Other chronic pain G89.29 Active 87009438 Problem Suppurative hidradenitis L73.2 Active 40891278 Problem Attention deficit hyperactivity disorder F90.9 Active 003054655 ALLERGIES No Information ENCOUNTERS Encounter Location Date Diagnosis [facility] [address] [facility] [id number] [address] Apr, [facility] [address] [facility] [id number], [place] [address] Apr, Abdominal pannus E65 and BMI 45.0-49.9, adult Z68.42 [facility] [address] [id number] [place] [address] 98966- 1250 20 Apr, 2017 Screening for iron deficiency anemia Z13.0 [facility] [address] [place] [id number] [place] [address] 41191- 9305 15 Apr, 2017 Bipolar disorder, unspecified F31.9 [facility] [address] [id number] [place] [address] 98411- 7426 07 Apr, 2017 Obesity during in third trimester O99.213 ; Third trimester Z34.93 ; Gestational diabetes mellitus (GDM) in third trimester controlled on oral hypoglycemic drug O24.415 ; 37 weeks gestation of Z3A.37 and Oligohydramnios in third trimester, single or unspecified fetus O41.03X0 [facility] [id number] [place] [address] 83832- 3154 28 Mar, 2017 Third trimester Z34.93 [facility] [address] [address] [id number] [place] [address] 13047- 0575 26 Mar, 2017 Gestational diabetes mellitus (GDM) in third trimester controlled on oral hypoglycemic drug O24.415 [facility] [address] [id number] [place] [address] 90788- 6333 Mar, [facility] [place] [address] [place] [address] 59447- 4300 Mar, Third trimester Z34.93 ; Gestational diabetes mellitus (GDM) in third trimester controlled on oral hypoglycemic drug O24.415 and 35 weeks gestation of Z3A.35 [facility] [address] [place] [address] 49490- 9053 15 Mar, 2017 BMI 50.0-59.9, adult Z68.43 and Bipolar disorder, unspecified F31.9 [facility] [address] [place] [address] 86585- 7364 13 Mar, 2017 Diet controlled gestational diabetes mellitus (GDM), antepartum O24.410 [facility] [address] [address] 5[address] 07 Mar, 2017 33 weeks gestation of Z3A.33 ; Gestational diabetes mellitus (GDM) in third trimester controlled on oral hypoglycemic drug O24.415 ; Third trimester Z34.93 and Obesity affecting in third trimester O99.213 [facility] [place] [address] [place] [address] 10066- 8629 Mar, [facility] [id number] [place] [address] 17124- 1844 Feb, Third trimester Z34.93 ; Encounter for immunization Z23 ; Gestational diabetes mellitus (GDM) in third trimester controlled on oral hypoglycemic drug O24.415 ; Obesity during in third trimester O99.213 and 31 weeks gestation of Z3A.31 [facility] [id number] [place] [address] 33683- 8071 Feb, [facility] [id number] [place] [address] 77823- 6959 Feb, Gestational diabetes mellitus (GDM) in third trimester, gestational diabetes method of control unspecified O24.419 [facility] [place] [id number] [place] [address] 90331- 8664 Feb, [facility] [place] [address] [place] [address] 58358- 4214 Feb, [facility] [place] [address] [place] [address] 25944- 1321 Feb, Bipolar disorder, unspecified F31.9 and BMI 50.0-59.9, adult Z68.43 [facility] [address] [place] [address] 34389- 4097 10 Feb, 2017 29 weeks gestation of Z3A.29 ; Gestational diabetes mellitus (GDM) in third trimester, gestational diabetes method of control unspecified O24.419 ; Third trimester Z34.93 ; Obesity affecting in third trimester O99.213 and BMI 50.0-59.9, adult Z68.43 [facility] [id number] [place] [address] 93660- 1902 15 Jan, 2017 Abnormal glucose tolerance test (GTT) R73.02 [facility] [address] [id number] 15 Jan, 2017 Dental examination Z01.20 [place] [address] 70319- 3882 14 Jan, 2017 Bipolar disorder, unspecified F31.9 [place] [address] 72021- 2449 12 Jan, 2017 25 weeks gestation of Z3A.25 ; Second trimester Z34.92 ; Gastro-esophageal reflux disease without esophagitis K21.9 ; Diseases of the digestive system complicating , second trimester O99.612 ; Abnormal ultrasonic finding on screening of mother O28.3 and BMI 50.0-59.9, adult Z68.43 [place] [address] 56443- 6105 05 Jan, 2017 [facility] [address] 09350- 9702 30 Dec, 2016 [facility] [address] 50884- 9887 14 Dec, 2016 Dental examination Z01.20 [facility] [facility] [address] 73904- 9423 14 Dec, 2016 Second trimester Z34.92 ; 21 weeks gestation of Z3A.21 and Obesity affecting in second trimester O99.212 [facility] [place] [id number] [place] [address] 54495- 2885 13 Dec, 2016 [facility] [address] 55790- 0348 10 Dec, 2016 Lump of right breast N63.10 ; Abscess of left thigh L02.416 and BMI 45.0-49.9, adult Z68.42 [facility] [address] [id number] Dec, Dental examination Z01.20 [facility] [address] [address] 6096 08 Dec, 2016 [facility] [id number] [place] [address] 03642- 5480 Dec, Bipolar disorder, unspecified F31.9 [facility] [id number] [place] [address] 48911- 2620 Nov, [facility] [id number] [place] [address] 09920- 5670 Nov, [facility] [id number] [place] [address] 24005- 5751 18 Nov, 2016 17 weeks gestation of Z3A.17 and Right non- suppurative otitis media H65.91 [facility] [id number] [place] [address] 15607- 9734 16 Nov, 2016 [facility] [id number] [place] [address] 46134- 2664 Nov, [facility] [id number] [place] [address] 00268- 6343 Nov, Bipolar disorder, unspecified F31.9 [facility] [address] [place] [address] 87049- 2426 10 Nov, 2016 16 weeks gestation of Z3A.16 ; Second trimester Z34.92 and Obesity affecting in second trimester O99.212 [facility] [address] [address] 03 Nov, 2016 Encounter for dental examination Z01.20 [facility] [address] [place] [address] 89275- 4153 13 Oct, 2016 [facility] [address] [place] [address] 25994- 6866 12 Oct, 2016 12 weeks gestation of Z3A.12 ; First trimester Z34.90 and Obesity affecting in first trimester O99.211 [facility] [address] [place] [address] 11567- 1761 Sep, [facility] [id number] [place] [address] 93961- 6805 Sep, [facility] [id number] [place] [address] 36836- 1849 Sep, Bipolar disorder, unspecified F31.9 [facility] [id number] [place] [address] 95767- 5112 Sep, [facility] [id number] [place] [address] 57186- 7420 Sep, [facility] [place] [id number] [place] [address] 05254- 0402 Sep, Normal , first Z34.00 [facility] [address] 32346- 2648 Sep, Normal , first Z34.00 ; 8 weeks gestation of Z3A.08 and Obesity affecting in first trimester O99.211 [facility] [id number] [place] [address] 14537- 4573 Sep, Anxiety disorder, unspecified F41.9 [facility] [place] [id number] [place] [address] 23465- 4435 Sep, [facility] [id number] [place] [address] 18089- 0393 Sep, Encounter for test, result unknown Z32.00 [facility] [id number] [place] [address] 65291- 6169 Aug, Anxiety disorder, unspecified F41.9 [facility] [place] [id number] [place] [address] 47275- 6700 Jul, Suppurative hidradenitis L73.2 ; Metabolic syndrome E88.81 ; BMI 40.0-44.9, adult Z68.41 and High risk sexual behavior Z72.51 [facility] [place] [id number] [place] [address] 53464- 7400 16 Jul, 2016 Anxiety disorder, unspecified F41.9 [facility] [id number] [place] [address] 80995- 7377 June, Anxiety disorder, unspecified F41.9 ; Attention deficit hyperactivity disorder F90.9 and Bipolar disorder, unspecified F31.9 [facility] [id number] [place] [address] 85144- 0090 June, Attention deficit hyperactivity disorder F90.9 [facility] [place] [id number] [place] [address] 65763- 6094 May, Attention deficit hyperactivity disorder F90.9 [facility] [address] [id number] [place] [address] 28335- 1323 Apr, Attention deficit hyperactivity disorder F90.9 [facility] [place] [address] [id number] [place] [address] 83105- 9197 14 Mar, 2016 Abscess L02.91 and Screening for STD (sexually transmitted disease) Z11.3 [facility] [id number] [place] [address] 94041- 8063 03 Mar, 2016 Attention deficit hyperactivity disorder F90.9 [facility] [place] [address] [address] [id number] [place] [address] 56799- 3977 Feb, Attention deficit hyperactivity disorder F90.9 [facility] [place] [id number] [place] [address] 29376- 2451 Feb, Attention deficit disorder of adult F98.8 and DMDD ( disruptive mood dysregulation disorder) F34.81 [facility] [place] [id number] [place] [address] 52228- 8010 Jan, Exposure to sexually transmitted disease (STD) Z20.2 and Metabolic syndrome E88.81 [facility] [id number] [place] [address] 05623- 8748 Jan, Possible exposure to STD Z20.2 ; BMI 40.0-44.9, adult Z68.41 ; Metabolic syndrome E88.81 ; Elevated fasting glucose R73.01 and Hypertriglyceridemia E78.1 [facility] [id number] [place] [address] [id number]- 7344 Jan, Possible exposure to STD Z20.2 ; Lumbago with sciatica, left side M54.42 ; Lumbago with sciatica, right side M54.41 ; BMI 40.0-44.9, adult Z68.41 ; Metabolic syndrome E88.81 ; Elevated fasting glucose R73.01 ; Hypertriglyceridemia E78.1 and Suppurative hidradenitis L73.2 [place] [address] 20733- 9665 Dec, Attention deficit hyperactivity disorder F90.9 [facility] [address] 29558- 3394 Dec, [facility] [address] 87983- 8502 Nov, [facility] [place] [address] [address] [id number] [place] [address] 63200- 2140 Nov, [facility] [address] 67013- 8785 Nov, [facility] [place] [address] [address] [id number] [place] [address] 94059- 3041 Nov, [facility] [address] 30185- 5258 Oct, Lumbago with sciatica, left side M54.42 and Other chronic pain G89.29 [facility] [address] 46642- 3603 Oct, Lumbago with sciatica, left side M54.42 ; Lumbago with sciatica, right side M54.41 ; Other chronic pain G89.29 and Suppurative hidradenitis L73.2 [place] [address] [place] [address]- 7242 Oct, [facility] [address] [address]- 8728 Sep, [facility] [address] [id number] [place] [address] 48005- 5156 Sep, Unprotected sexual intercourse Z72.51 ; Hidradenitis suppurativa L73.2 ; Elevated fasting glucose R73.01 ; BMI 40.0-44.9, adult Z68.41 and Irregular menses N92.6 [facility] [id number] [place] [address] 42048- 3836 Aug, [facility] [id number] [place] [address] 23008- 1184 Jul, Routine health maintenance Z00.00 ; Abscess L02.91 ; H/O hidradenitis suppurativa Z87.2 ; Irregular menses N92.6 ; BMI 40.0-44.9, adult Z68.41 ; Elevated fasting glucose R73.01 and Hypertriglyceridemia E78.1 [facility] [address] [place] [address] 33667- 7313 Jul, [facility] [address] [place] [address] 43341 -0969 Jul, Hidradenitis suppurativa L73.2 [facility] [id number] [place] [address] 04052- 6354 Jul, Bipolar disorder, unspecified F31.9 ; Anxiety disorder, unspecified F41.9 and Attention deficit hyperactivity disorder F90.9 [facility] [address] [place] [address] 28751- 7413 June, [facility] [id number] [place] [address] 13663- 4010 June, [facility] [address] [place] [address] 52450- 6683 May, [facility] [place] [id number] [place] [address] 53168- 8628 Apr, [place] [id number] [place] [address] 37895- 0764 Apr, Well woman exam Z01.419 ; BMI 40.0-44.9, adult Z68.41 ; Tobacco use Z72.0 ; Family history of diabetes mellitus Z83.3 ; Hidradenitis suppurativa L73.2 ; Routine screening for STI (sexually transmitted infection) Z11.3 ; Unprotected sexual intercourse Z72.51 and Family history of breast cancer Z80.3 [place] [id number] [place] [address] 41848- 0603 Apr, Bipolar disorder, unspecified F31.9 ; Anxiety disorder, unspecified F41.9 and Attention deficit hyperactivity disorder F90.[address] 07611- 5718 Mar, [place] [id number] [place] [address] 40486- 9531 Feb, [place] [id number] [place] [address] 43680- 7630 Feb, [place] [id number] [place] [address] 81881- 4222 Jan, Encounter for test, result negative Z32.02 and BMI 40.0-44.9, adult Z68.41 [place] [id number] [place] [address] 76108- 4188 Jan, Bipolar disorder, unspecified F31.9 ; Anxiety disorder, unspecified F41.9 and Attn-defct hyperactivity disorder, predom inattentive type F90.0 [place] [id number] [place] [address] 76332- 3925 Jan, [place] [id number] [place] [address] 20881- 3060 Dec, [address] [place] [address] 67653- 4123 Dec, Bipolar disorder, unspecified F31.9 ; Attention deficit hyperactivity disorder F90.9 and Anxiety disorder, unspecified F41.9 [facility] [id number] [place] [address] 67536- 3834 Nov, Irregular menses N92.6 ; Unprotected sexual intercourse Z72.51 ; Screening for STD (sexually transmitted disease) Z11.3 ; General counseling and advice for contraceptive management Z30.09 ; Oral contraceptive pill surveillance Z30.41 ; BMI 40.0-44.9, adult Z68.41 and H/O hidradenitis suppurativa Z87.2 [facility] [id number] [place] [address] [id number] Sep, Dental examination V72.2 [facility] [id number] [place] [address] 19433- 9828 Sep, Screen for STD (sexually transmitted disease) V74.5 and General counseling on prescription of oral contraceptives V25.01 [facility] [id number] [place] [address] 34638- 5910 May, [facility] [id number] [place] [address] 62033- 3293 May, [facility] [id number] [place] [address] 94909- 4382 Apr, [facility] [id number] [place] [address] 75370- 1267 30 Apr, 2014 [facility] [id number] [place] [address] 55015- 0837 Apr, [facility] [id number] [place] [address] 73973- 9435 Apr, [facility] [id number] [place] [address] 44016- 0029 Apr, [facility] [id number] [place] [address] 00080- 2546 Apr, [facility] [place] [facility] [address] [id number] [place] [address]- 7404 Apr, [facility] [place] [facility] [address] [id number] [place] [address]- 3716 Mar, 2014 [facility] [place] [facility] [address] [id number] [place] [address]- 5936 Mar, 2014 [facility] [place] [facility] [address] [id number] [place] [address]- 1494 Mar, 2014 [facility] [place] [facility] [address] [id number] [place] [address]- 9583 Mar, 2014 [facility] [place] [facility] [address] [facility] [id number] [place] [address]- 5465 Mar, 2014 [facility] [place] [facility] [address] [facility] [id number] [place] [address]- 1328 Mar, 2014 [facility] [place] [facility] [address] [facility] [id number] [place] [address]- 1705 Jan, [facility] [place] [facility] [address] [facility] [id number] [place] [address]- 3345 Jan, [facility] [place] [facility] [address] [facility] [id number] [place] [address]- 2411 Dec, [facility] [place] [facility] [address] [facility] [id number] [place] [address]- 2054 Dec, [facility] [place] [facility] [address] [facility] [id number] [place] [address]- 4918 Dec, [facility] [place] [facility] [address] [id number] [place] [address]- 3251 Dec, [facility] [place] [facility] [address] [facility] [id number] [place] [address]- 2994 Sep, [facility] [place] [facility] [address] [facility] [id number] [place] [address]- 9479 Sep, [facility] [place] [facility] [address] [address]- 0431 Apr, [facility] [address] [address]- 3026 Apr, [facility] [address] [address]- 3303 Mar, [facility] [address] [address]- 3457 Mar, [facility] [address] [address]- 0577 Mar, [facility] [address] [address]- 1378 Mar, [facility] [address]- 4882 Jan, [facility] [address] 3042 Jan, [facility] [address] [address]- 5778 Dec, [facility] [id number] [address]- 1620 Dec, [facility] [id number]- 8545 Dec, IMMUNIZATIONS No Known Immunizations SOCIAL HISTORY Never Assessed REASON FOR VISIT adderall 08/29/2016 PLAN OF CARE VITAL SIGNS MEDICATIONS Medication Instructions Dosage Frequency Start Date End Date Duration Status Adderall 20 mg Orally twice a day 1 tablet 12h Aug, 28 days Active RESULTS No Results PROCEDURES No Known procedures INSTRUCTIONS MEDICATIONS ADMINISTERED No Known Medications MEDICAL (GENERAL) HISTORY Type Description Date Medical History Hidradenitis Supprativa Medical History Bipolar Disorder Medical History ADHD Medical History Due May 14, 2017 Surgical History pilonidal cyst removal tailbone Surgical History 2018 Hospitalization History Dehydration & concussion 07/23/2016
--- OUTSIDE RECORDS SUMMARY | 2017-09-24 23:01 | XMS REPORT ---
Author Author MARILINCASEYVIVIAN Organization [facility] Address [address] [place] [address] Care Team Providers Care Search Engine Optimizer Name Role Phone GASTONVIVIAN Austin Unavailable PROBLEMS Type Condition ICD9-CM Code WKO03-IZ Code Onset Dates Condition Status SNOMED Code Problem Metabolic syndrome E88.81 Active 488438303 Problem Gastro-esophageal reflux disease without esophagitis K21.9 Active 752344761 Problem Obesity affecting in second trimester O99.212 Active 527833290360 Problem Gestational diabetes mellitus (GDM) in third trimester, gestational diabetes method of control unspecified O24.419 Active 36305657 Problem Abdominal pannus E65 Active 5236879709563 Problem Obesity affecting in third trimester O99.213 Active 406403587836 Problem BMI 50.0-59.9, adult Z68.43 Active 046344467 Problem Obesity during in third trimester O99.213 Active 798085495 Problem Gestational diabetes mellitus (GDM) in third trimester controlled on oral hypoglycemic drug O24.415 Active 42554310 Problem Anxiety disorder, unspecified F41.9 Active 084450609 Problem Bipolar disorder, unspecified F31.9 Active 51113018 Problem Lumbago with sciatica, left side M54.42 Active 347088476 Problem Lumbago with sciatica, right side M54.41 Active 934688399 Problem Hypertriglyceridemia E78.1 Active 841264637 Problem Other chronic pain G89.29 Active 78425414 Problem Suppurative hidradenitis L73.2 Active 39819290 Problem Attention deficit hyperactivity disorder F90.9 Active 950419597 ALLERGIES Substance Reaction Event Type Date Status Bees anaphylaxis Non Drug Allergy Jul, Active ENCOUNTERS Encounter Location Date Diagnosis [facility] [address] [facility] [id number] [address] Apr, Abdominal pannus E65 and BMI 45.0-49.9, adult Z68.42 [facility] [id number] [place] [address] 23384- 7006 20 Apr, 2017 Screening for iron deficiency anemia Z13.0 [facility] [facility] [id number] [place] [address] 83752- 3950 15 Apr, 2017 Bipolar disorder, unspecified F31.9 [facility] [id number] [place] [address] 25269- 1357 07 Apr, 2017 Obesity during in third trimester O99.213 ; Third trimester Z34.93 ; Gestational diabetes mellitus (GDM) in third trimester controlled on oral hypoglycemic drug O24.415 ; 37 weeks gestation of Z3A.37 and Oligohydramnios in third trimester, single or unspecified fetus O41.03X0 [facility] [facility] [id number] [place] [address] 38352- 3411 28 Mar, 2017 Third trimester Z34.93 [facility] [facility] [id number] [place] [address] 41374- 2620 26 Mar, 2017 Gestational diabetes mellitus (GDM) in third trimester controlled on oral hypoglycemic drug O24.415 [facility] [id number] [place] [address] 04151- 5734 Mar, [facility] [id number] [place] [address] 34183- 2119 Mar, Third trimester Z34.93 ; Gestational diabetes mellitus (GDM) in third trimester controlled on oral hypoglycemic drug O24.415 and 35 weeks gestation of Z3A.35 [facility] [id number] [place] [address] 99631- 3369 15 Mar, 2017 BMI 50.0-59.9, adult Z68.43 and Bipolar disorder, unspecified F31.9 [facility] [facility] [id number] [place] [address] 71241- 4124 13 Mar, 2017 Diet controlled gestational diabetes mellitus (GDM), antepartum O24.410 [facility] [id number] [place] [address] 52166- 7043 Mar, 33 weeks gestation of Z3A.33 ; Gestational diabetes mellitus (GDM) in third trimester controlled on oral hypoglycemic drug O24.415 ; Third trimester Z34.93 and Obesity affecting in third trimester O99.213 [place] [address] [address] 4[address] Mar, [facility] [id number] [place] [address] 43756- 2158 Feb, Third trimester Z34.93 ; Encounter for immunization Z23 ; Gestational diabetes mellitus (GDM) in third trimester controlled on oral hypoglycemic drug O24.415 ; Obesity during in third trimester O99.213 and 31 weeks gestation of Z3A.31 [facility] [id number] [place] [address] 01804- 1032 Feb, [facility] [facility] [id number] [place] [address] 64446- 9688 Feb, Gestational diabetes mellitus (GDM) in third trimester, gestational diabetes method of control unspecified O24.419 [facility] [id number] [place] [address] 77797- 4300 Feb, [place] [address] [place] [address] 92824- 9304 Feb, [place] [address] [address] 9571 Feb, Bipolar disorder, unspecified F31.9 and BMI 50.0-59.9, adult Z68.43 [place] [address] [place] [address] 88297- 6553 10 Feb, 2017 29 weeks gestation of Z3A.29 ; Gestational diabetes mellitus (GDM) in third trimester, gestational diabetes method of control unspecified O24.419 ; Third trimester Z34.93 ; Obesity affecting in third trimester O99.213 and BMI 50.0-59.9, adult Z68.43 [place] [address] [place] [address] 97757- 6532 15 Jan, 2017 Abnormal glucose tolerance test (GTT) R73.02 [facility] [address] [place] [address] [id number] 15 Jan, 2017 Dental examination Z01.20 [place] [id number] [place] [address] 09204- 9015 14 Jan, 2017 Bipolar disorder, unspecified F31.9 [facility] [id number] [place] [address] 64459- 3340 12 Jan, 2017 25 weeks gestation of Z3A.25 ; Second trimester Z34.92 ; Gastro-esophageal reflux disease without esophagitis K21.9 ; Diseases of the digestive system complicating , second trimester O99.612 ; Abnormal ultrasonic finding on screening of mother O28.3 and BMI 50.0-59.9, adult Z68.43 [place] [id number] [place] [address] 90231- 7618 05 Jan, 2017 [facility] [id number] [place] [address] 19913- 7121 30 Dec, 2016 [place] [address] 57714- 5913 14 Dec, 2016 Dental examination Z01.20 [facility] [id number] [place] [address] 69720- 2992 14 Dec, 2016 Second trimester Z34.92 ; 21 weeks gestation of Z3A.21 and Obesity affecting in second trimester O99.212 [facility] [id number] [place] [address] 38864- 6141 13 Dec, 2016 [facility] [id number] [place] [address] 34878- 7070 10 Dec, 2016 Lump of right breast N63.10 ; Abscess of left thigh L02.416 and BMI 45.0-49.9, adult Z68.42 [facility] [address] [place] [address] [phone] 10 Dec, 2016 Dental examination Z01.20 [facility] [address] [address]- 1759 08 Dec, 2016 [facility] [id number] [place] [address] 19124- 6422 Dec, Bipolar disorder, unspecified F31.9 [facility] [address] [address] 5225 Nov, [facility] [id number] [place] [address] 47108- 4050 Nov, [facility] [address] [place] [address] 74692- 0699 Nov, 17 weeks gestation of Z3A.17 and Right non- suppurative otitis media H65.91 [facility] [address] [place] [address] 66830- 9936 16 Nov, 2016 [facility] [id number] [place] [address] 52497- 4077 Nov, [facility] [address] [place] [address] 28806- 1930 Nov, Bipolar disorder, unspecified F31.9 [facility] [address] [place] [address] 73001- 2511 10 Nov, 2016 16 weeks gestation of Z3A.16 ; Second trimester Z34.92 and Obesity affecting in second trimester O99.212 [facility] [address] [id number] 03 Nov, 2016 Encounter for dental examination Z01.20 [facility] [address] [address]- 7665 13 Oct, 2016 [facility] [address] [place] [address] 15969- 3672 Oct, 12 weeks gestation of Z3A.12 ; First trimester Z34.90 and Obesity affecting in first trimester O99.211 [facility] [id number] [address]- 4043 Sep, [facility] [id number] [place] [address] 40343- 0019 Sep, [facility] [id number] [place] [address] 95482- 6726 Sep, Bipolar disorder, unspecified F31.9 [facility] [id number] [place] [address] 20659- 1126 Sep, [facility] [id number] [place] [address] 99660- 7416 Sep, [place] [id number] [place] [address] 51058- 2499 Sep, Normal , first Z34.00 [place] [id number] [place] [address] 56160- 4726 Sep, Normal , first Z34.00 ; 8 weeks gestation of Z3A.08 and Obesity affecting in first trimester O99.211 [place] [id number] [place] [address] 84999- 1030 Sep, Anxiety disorder, unspecified F41.9 [place] [id number] [place] [address] 00000- 6461 Sep, [place] [id number] [place] [address] 55504- 0561 Sep, Encounter for test, result unknown Z32.00 [place] [id number] [place] [address] 25547- 4010 Aug, Anxiety disorder, unspecified F41.9 [place] [id number] [place] [address] 58512- 1153 Jul, Suppurative hidradenitis L73.2 ; Metabolic syndrome E88.81 ; BMI 40.0-44.9, adult Z68.41 and High risk sexual behavior Z72.51 [place] [address] [place] [address]- 8619 Jul, Anxiety disorder, unspecified F41.9 [facility] [id number] [place] [address] 66577- 4872 June, Anxiety disorder, unspecified F41.9 ; Attention deficit hyperactivity disorder F90.9 and Bipolar disorder, unspecified F31.9 [place] [id number] [place] [address] 96723- 5412 June, Attention deficit hyperactivity disorder F90.9 [place] [id number] [place] [address] 65172- 1426 May, Attention deficit hyperactivity disorder F90.9 [place] [id number] [place] [address] 02397- 9649 Apr, Attention deficit hyperactivity disorder F90.9 [place] [id number] [place] [address] 54615- 6462 14 Mar, 2016 Abscess L02.91 and Screening for STD (sexually transmitted disease) Z11.3 [place] [id number] [place] [address] 35439- 6755 Mar, Attention deficit hyperactivity disorder F90.9 [place] [address] [place] [address] 85909- 7014 Feb, Attention deficit hyperactivity disorder F90.9 [place] [id number] [place] [address] 68690- 9170 Feb, Attention deficit disorder of adult F98.8 and DMDD ( disruptive mood dysregulation disorder) F34.81 [place] [address] [place] [address] 51106- 6637 09 Jan, 2016 Exposure to sexually transmitted disease (STD) Z20.2 and Metabolic syndrome E88.81 [place] [address] [place] [address] 52085- 0493 02 Jan, 2016 Possible exposure to STD Z20.2 ; BMI 40.0-44.9, adult Z68.41 ; Metabolic syndrome E88.81 ; Elevated fasting glucose R73.01 and Hypertriglyceridemia E78.1 [facility] [id number] [place] [address] 16526- 5345 Jan, Possible exposure to STD Z20.2 ; Lumbago with sciatica, left side M54.42 ; Lumbago with sciatica, right side M54.41 ; BMI 40.0-44.9, adult Z68.41 ; Metabolic syndrome E88.81 ; Elevated fasting glucose R73.01 ; Hypertriglyceridemia E78.1 and Suppurative hidradenitis L73.2 [facility] [id number] [place] [address] 25337- 5519 Dec, Attention deficit hyperactivity disorder F90.9 [facility] [id number] [place] [address] 87546- 5793 Dec, [facility] [id number] [place] [address] 79088- 4353 Nov, [facility] [id number] [place] [address] 79761- 9210 Nov, [facility] [id number] [place] [address] 71656- 1559 Nov, [facility] [id number] [place] [address] 09083- 2784 Nov, [facility] [id number] [place] [address] 94787- 4106 Oct, Lumbago with sciatica, left side M54.42 and Other chronic pain G89.29 [facility] [id number] [place] [address] 42595- 0172 Oct, Lumbago with sciatica, left side M54.42 ; Lumbago with sciatica, right side M54.41 ; Other chronic pain G89.29 and Suppurative hidradenitis L73.2 [facility] [id number] [place] [address] 67495- 1579 Oct, [facility] [address] [address]- 4510 Sep, [facility] [id number] [place] [address] 80341- 0016 Sep, Unprotected sexual intercourse Z72.51 ; Hidradenitis suppurativa L73.2 ; Elevated fasting glucose R73.01 ; BMI 40.0-44.9, adult Z68.41 and Irregular menses N92.6 [facility] [id number] [place] [address] 94849- 8718 Aug, [place] [id number] [place] [address] 36704- 9838 Jul, Routine health maintenance Z00.00 ; Abscess L02.91 ; H/O hidradenitis suppurativa Z87.2 ; Irregular menses N92.6 ; BMI 40.0-44.9, adult Z68.41 ; Elevated fasting glucose R73.01 and Hypertriglyceridemia E78.1 [facility] [address] [address]- 1178 Jul, [facility] [address] [address] -0456 Jul, Hidradenitis suppurativa L73.2 [facility] [address] [address]- 9533 Jul, Bipolar disorder, unspecified F31.9 ; Anxiety disorder, unspecified F41.9 and Attention deficit hyperactivity disorder F90.9 [facility] [address] [address]- 5603 June, [place] [id number] [place] [address] 32717- 4315 June, [facility] [address] [address]- 0322 May, [facility] [id number] [place] [address] 46257- 0015 Apr, [place] [id number] [place] [address] 92942- 9390 Apr, 2016 Well woman exam Z01.419 ; BMI 40.0-44.9, adult Z68.41 ; Tobacco use Z72.0 ; Family history of diabetes mellitus Z83.3 ; Hidradenitis suppurativa L73.2 ; Routine screening for STI (sexually transmitted infection) Z11.3 ; Unprotected sexual intercourse Z72.51 and Family history of breast cancer Z80.3 [place] [id number] [place] [address] 18756- 0284 Apr, Bipolar disorder, unspecified F31.9 ; Anxiety disorder, unspecified F41.9 and Attention deficit hyperactivity disorder F90.9 [place] [id number] [place] [address] 05572- 5524 Mar, [place] [id number] [place] [address] 09128- 6564 Feb, [place] [id number] [place] [address] 18481- 7434 Feb, [place] [id number] [place] [address] 38649- 6030 Jan, Encounter for test, result negative Z32.02 and BMI 40.0-44.9, adult Z68.41 [place] [id number] [place] [address] 47741- 7313 Jan, Bipolar disorder, unspecified F31.9 ; Anxiety disorder, unspecified F41.9 and Attn-defct hyperactivity disorder, predom inattentive type F90.0 [place] [id number] [place] [address] 12535- 7276 Jan, [place] [id number] [place] [address] 69271- 6903 Dec, [address] 97094- 1656 Dec, Bipolar disorder, unspecified F31.9 ; Attention deficit hyperactivity disorder F90.9 and Anxiety disorder, unspecified F41.9 [facility] [id number] [place] [address] [id number]- 1609 Nov, Irregular menses N92.6 ; Unprotected sexual intercourse Z72.51 ; Screening for STD (sexually transmitted disease) Z11.3 ; General counseling and advice for contraceptive management Z30.09 ; Oral contraceptive pill surveillance Z30.41 ; BMI 40.0-44.9, adult Z68.41 and H/O hidradenitis suppurativa Z87.2 [facility] [id number] [place] [address] [id number] Sep, Dental examination V72.2 [facility] [id number] [place] [address] 60864- 0572 Sep, Screen for STD (sexually transmitted disease) V74.5 and General counseling on prescription of oral contraceptives V25.01 [facility] [id number] [place] [address] 13309- 0909 May, [facility] [id number] [place] [address] 80737- 4557 May, [facility] [id number] [place] [address] [id number]- 9198 Apr, [facility] [id number] [place] [address] 90768- 9242 30 Apr, 2014 [facility] [id number] [place] [address] 00877998- 5729 Apr, [facility] [id number] [place] [address] 77744- 9137 Apr, [facility] [id number] [place] [address] 009560- 2678 Apr, [facility] [id number] [place] [address] [id number]- 5283 Apr, [facility] [place] [facility] [address] [id number] [place] [address]- 3696 Apr, [facility] [place] [facility] [address] [id number] [place] [address]- 6512 Mar, 2014 [facility] [place] [facility] [address] [id number] [place] [address]- 3957 Mar, 2014 [facility] [place] [facility] [address] [id number] [place] [address]- 0666 Mar, 2014 [facility] [place] [facility] [address] [id number] [place] [address]- 4737 Mar, 2014 [facility] [place] [facility] [address] [id number] [place] [address]- 7966 Mar, 2014 [facility] [place] [facility] [address] [id number] [place] [address]- 4869 Mar, 2014 [facility] [place] [facility] [address] [id number] [place] [address]- 0614 Jan, [facility] [place] [facility] [address] [id number] [place] [address]- 5276 Jan, [facility] [place] [facility] [address] [facility] [place] [place] [id number] [place] [address]- 1616 Dec, [facility] [place] [facility] [address] [id number] [place] [address]- 3191 Dec, [facility] [place] [facility] [address] [id number] [address]- 9673 Dec, [facility] [place] [facility] [address] [id number] [place] [address]- 2243 Dec, [facility] [place] [facility] [address] [id number] [place] [address]- 1265 Sep, [facility] [place] [facility] [address] [id number] [address]- 3456 Sep, [facility] [place] [facility] [address] [id number] [address]- 4965 Apr, [facility] [id number] [address]- 5713 Apr, [facility] [address] 7574 Mar, [facility] [address] [address]- 0748 Mar, [facility] [address]- 0856 Mar, [facility] [address] 4494 Mar, [facility] [address] [address]- 9268 Jan, [facility] [address] [address]- 4545 Jan, [facility] [address] [address]- 8568 Dec, [facility] [address] [address]- 1045 Dec, [facility] [address] [address] Dec, IMMUNIZATIONS No Known Immunizations SOCIAL HISTORY Never Assessed REASON FOR VISIT skin issues PLAN OF CARE Activity Details Follow Up 3 Months Reason:[facility] Height 64 in 2016-08-12 Weight 288.1 lbs 2016-08-12 Temperature 97.4 degrees Fahrenheit 2016-08-12 Heart Rate 88 bpm 2016-08-12 Respiratory Rate 20 2016-08-12 BMI 49.45 kg/m2 2016-08-12 Blood pressure systolic 132 mmHg 2016-08-12 Blood pressure diastolic 86 mmHg 2016-08-12 MEDICATIONS Medication Instructions Dosage Frequency Start Date End Date Duration Status Trazodone HCl 100 MG Orally voucher Once a day 1 tablet at bedtime 24h Dec, 30 days Active Trileptal 300 MG Orally twice a day 1 tablet 12h Dec, 30 days Active Adderall 20 mg Orally twice a day 1 tablet 12h June, 28 days Active RESULTS Name Result Date Reference Range TEST, URINE (IN HOUSE) 2016-08-12 RESULTS Negative Lot # [id number] Control + Exp date 10/13/17 GC/CHLAM URINE (STATE) 2016-08-12 CHLAMYDIA negative GC negative PROCEDURES Procedure Date Ordered Result Body Site URINE TEST August 12, 2016 No Charge August 12, 2016 INSTRUCTIONS MEDICATIONS ADMINISTERED No Known Medications MEDICAL (GENERAL) HISTORY Type Description Date Medical History Hidradenitis Supprativa Medical History Bipolar Disorder Medical History ADHD Medical History Due May 14, 2017 Surgical History pilonidal cyst removal tailbone Surgical History 2018 Hospitalization History Dehydration & concussion 07/23/2016
--- OUTSIDE RECORDS SUMMARY | 2017-09-24 23:03 | XMS REPORT ---
Author Author EVERARDO HUNT [facility] Address [address] [place] [address] Care Team Providers Care Real Estate Officer Name Role Phone EVERARDO HUNT Unavailable PROBLEMS Type Condition ICD9-CM Code GTP66-RS Code Onset Dates Condition Status SNOMED Code Problem Obesity affecting in second trimester O99.212 Active 373607299658 Problem BMI 50.0-59.9, adult Z68.43 Active 391262796 Problem Gastro-esophageal reflux disease without esophagitis K21.9 Active 942202995 Problem Post depression F53 Active 82484620 Problem Gestational diabetes mellitus (GDM) in third trimester, gestational diabetes method of control unspecified O24.419 Active 35705664 Problem Obesity during in third trimester O99.213 Active 362188155 Problem Obesity affecting in third trimester O99.213 Active 671692220954 Problem Abdominal pannus E65 Active 1130279630535 Problem Gestational diabetes mellitus (GDM) in third trimester controlled on oral hypoglycemic drug O24.415 Active 49114386 Problem Bipolar disorder, unspecified F31.9 Active 00237265 Problem Hypertriglyceridemia E78.1 Active 541129443 Problem Anxiety disorder, unspecified F41.9 Active 859893096 Problem Lumbago with sciatica, left side M54.42 Active 084183231 Problem Lumbago with sciatica, right side M54.41 Active 732797395 Problem Other chronic pain G89.29 Active 79465033 Problem Attention deficit hyperactivity disorder F90.9 Active 384471856 Problem Suppurative hidradenitis L73.2 Active 16453364 Problem Metabolic syndrome E88.81 Active 516928222 ALLERGIES Substance Reaction Event Type Date Status Bees anaphylaxis Non Drug Allergy Oct, Active ENCOUNTERS Encounter Location Date Diagnosis [facility] [address] [facility] [id number] [address] May, [facility] [id number] [place] [address] 56683- 8216 19 May, 2017 Lumbago with sciatica, left side M54.42 ; care and examination Z39.2 ; Lumbago with sciatica, right side M54.41 ; Other chronic pain G89.29 ; BMI 50.0-59.9, adult Z68.43 ; Abdominal pannus E65 ; Suppurative hidradenitis L73.2 and Post depression F53 [facility] [id number] [place] [address] 91137- 1426 Apr, [facility] [facility] [address] 29218- 0665 21 Apr, 2017 Abdominal pannus E65 and BMI 45.0-49.9, adult Z68.42 [facility] [id number] [place] [address] 55474- 4754 20 Apr, 2017 Screening for iron deficiency anemia Z13.0 [facility] [id number] [place] [address] 82035- 8403 15 Apr, 2017 Bipolar disorder, unspecified F31.9 [facility] [id number] [place] [address] 53946- 5420 07 Apr, 2017 Obesity during in third trimester O99.213 ; Third trimester Z34.93 ; Gestational diabetes mellitus (GDM) in third trimester controlled on oral hypoglycemic drug O24.415 ; 37 weeks gestation of Z3A.37 and Oligohydramnios in third trimester, single or unspecified fetus O41.03X0 [facility] [id number] [place] [address] 36066- 5504 Mar, Third trimester Z34.93 [facility] [address] 46356- 3203 Mar, Gestational diabetes mellitus (GDM) in third trimester controlled on oral hypoglycemic drug O24.415 [facility] [id number] [place] [address] 49717- 0048 Mar, [facility] [address] [address] 3556 22 Mar, 2017 Third trimester Z34.93 ; Gestational diabetes mellitus (GDM) in third trimester controlled on oral hypoglycemic drug O24.415 and 35 weeks gestation of Z3A.35 [facility] [id number] [place] [address] 20964- 3757 15 Mar, 2017 BMI 50.0-59.9, adult Z68.43 and Bipolar disorder, unspecified F31.9 [facility] [id number] [place] [address] 30999- 0441 13 Mar, 2017 Diet controlled gestational diabetes mellitus (GDM), antepartum O24.410 [facility] [id number] [place] [address] 07665- 8808 07 Mar, 2017 33 weeks gestation of Z3A.33 ; Gestational diabetes mellitus (GDM) in third trimester controlled on oral hypoglycemic drug O24.415 ; Third trimester Z34.93 and Obesity affecting in third trimester O99.213 [facility] [id number] [place] [address] 26828- 4880 Mar, [facility] [id number] [place] [address] 83987- 1409 Feb, Third trimester Z34.93 ; Encounter for immunization Z23 ; Gestational diabetes mellitus (GDM) in third trimester controlled on oral hypoglycemic drug O24.415 ; Obesity during in third trimester O99.213 and 31 weeks gestation of Z3A.31 [facility] [id number] [place] [address] 14529- 0893 Feb, [facility] [id number] [place] [address] 18381- 9587 Feb, Gestational diabetes mellitus (GDM) in third trimester, gestational diabetes method of control unspecified O24.419 [facility] [id number] [place] [address] 66348- 6345 Feb, [facility] [id number] [place] [address] 42531- 7195 16 Feb, 2017 [place] [address] 86278- 9052 Feb, Bipolar disorder, unspecified F31.9 and BMI 50.0-59.9, adult Z68.43 [facility] [address] 67420- 5367 10 Feb, 2017 29 weeks gestation of Z3A.29 ; Gestational diabetes mellitus (GDM) in third trimester, gestational diabetes method of control unspecified O24.419 ; Third trimester Z34.93 ; Obesity affecting in third trimester O99.213 and BMI 50.0-59.9, adult Z68.43 [facility] [address] 62191- 6662 15 Jan, 2017 Abnormal glucose tolerance test (GTT) R73.02 [facility] [address] [id number] Jan, Dental examination Z01.20 [facility] [address] 96361- 5833 14 Jan, 2017 Bipolar disorder, unspecified F31.9 [facility] [address] 84482- 3289 12 Jan, 2017 25 weeks gestation of Z3A.25 ; Second trimester Z34.92 ; Gastro-esophageal reflux disease without esophagitis K21.9 ; Diseases of the digestive system complicating , second trimester O99.612 ; Abnormal ultrasonic finding on screening of mother O28.3 and BMI 50.0-59.9, adult Z68.43 [facility] [address] 05199- 9942 05 Jan, 2017 [facility] [address] 68571- 0606 Dec, [facility] [address] 95313- 6718 Dec, Dental examination Z01.20 [facility] [address] [place] [address] 87271- 4193 14 Dec, 2016 Second trimester Z34.92 ; 21 weeks gestation of Z3A.21 and Obesity affecting in second trimester O99.212 [facility] [id number] [place] [address] 31484- 3330 13 Dec, 2016 [facility] [id number] [place] [address] 78675- 5801 10 Dec, 2016 Lump of right breast N63.10 ; Abscess of left thigh L02.416 and BMI 45.0-49.9, adult Z68.42 [facility] [id number] [place] [address] [id number] 10 Dec, 2016 Dental examination Z01.20 [facility] [id number] [place] [address] 72599- 7756 08 Dec, 2016 [facility] [id number] [place] [address] 85962- 6954 Dec, Bipolar disorder, unspecified F31.9 [facility] [id number] [place] [address] 88031- 1881 Nov, [facility] [id number] [place] [address] 63271- 6030 Nov, [facility] [id number] [place] [address] 48850- 7422 Nov, 17 weeks gestation of Z3A.17 and Right non- suppurative otitis media H65.91 [facility] [id number] [place] [address] 14335- 8746 Nov, [facility] [id number] [place] [address] 97913- 7050 Nov, [facility] [id number] [place] [address] 00548- 7424 Nov, Bipolar disorder, unspecified F31.9 [facility] [address] [address] 0021 10 Nov, 2016 16 weeks gestation of Z3A.16 ; Second trimester Z34.92 and Obesity affecting in second trimester O99.212 [facility] [id number] [id number] 03 Nov, 2016 Encounter for dental examination Z01.20 [facility] [address], [place] [address] 2303 13 Oct, 2016 [facility] [id number] [place] [address] 44647- 0021 12 Oct, 2016 12 weeks gestation of Z3A.12 ; First trimester Z34.90 and Obesity affecting in first trimester O99.211 [facility] [address], [place] [address] 5700 Sep, [facility] [address], [place] [address]- 9084 Sep, [facility] [id number] [place] [address] 43029- 3107 Sep, Bipolar disorder, unspecified F31.9 [facility] [address] [place] [address] 75923- 2349 Sep, [facility] [address], [place] [address]- 3328 Sep, [facility] [address], [place] [address]- 6158 Sep, Normal , first Z34.00 [facility] [address], [place] [address]- 4141 Sep, Normal , first Z34.00 ; 8 weeks gestation of Z3A.08 and Obesity affecting in first trimester O99.211 [facility] [address], [place] [address]- 1317 Sep, Anxiety disorder, unspecified F41.9 [facility] [id number] [place] [address] 73825- 4745 Sep, [facility] [id number] [place] [address] 54577- 3924 Sep, Encounter for test, result unknown Z32.00 [facility] [id number] [place] [address] 10039- 5354 Aug, Anxiety disorder, unspecified F41.9 [facility] [id number] [place] [address] 35452- 5180 Jul, Suppurative hidradenitis L73.2 ; Metabolic syndrome E88.81 ; BMI 40.0-44.9, adult Z68.41 and High risk sexual behavior Z72.51 [facility] [id number] [place] [address] 95845- 8034 Jul, Anxiety disorder, unspecified F41.9 [facility] [id number] [place] [address] 69602- 8192 June, Anxiety disorder, unspecified F41.9 ; Attention deficit hyperactivity disorder F90.9 and Bipolar disorder, unspecified F31.9 [facility] [id number] [place] [address] 22557- 4496 June, Attention deficit hyperactivity disorder F90.9 [facility] [id number] [place] [address] 83029- 8688 May, Attention deficit hyperactivity disorder F90.9 [facility] [id number] [place] [address] 70388- 0555 Apr, Attention deficit hyperactivity disorder F90.9 [facility] [id number] [place] [address] 47016- 3595 14 Mar, 2016 Abscess L02.91 and Screening for STD sexually transmitted disease Z11.3 [facility] [address] [place] [address] 33826- 9711 03 Mar, 2016 Attention deficit hyperactivity disorder F90.9 [facility] [id number] [place] [address] 18975- 6726 Feb, Attention deficit hyperactivity disorder F90.9 [facility] [id number] [place] [address] 12114- 6231 Feb, Attention deficit disorder of adult F98.8 and DMDD ( disruptive mood dysregulation disorder) F34.81 [place] [id number] [place] [address] 54608- 1459 Jan, Exposure to sexually transmitted disease (STD) Z20.2 and Metabolic syndrome E88.81 [place] [id number] [place] [address] 85611- 3693 Jan, Possible exposure to STD Z20.2 ; BMI 40.0-44.9, adult Z68.41 ; Metabolic syndrome E88.81 ; Elevated fasting glucose R73.01 and Hypertriglyceridemia E78.1 [place] [id number] [place] [address] 08592- 2620 Jan, Possible exposure to STD Z20.2 ; Lumbago with sciatica, left side M54.42 ; Lumbago with sciatica, right side M54.41 ; BMI 40.0-44.9, adult Z68.41 ; Metabolic syndrome E88.81 ; Elevated fasting glucose R73.01 ; Hypertriglyceridemia E78.1 and Suppurative hidradenitis L73.2 [place] [id number] [place] [address] 52034- 3308 Dec, Attention deficit hyperactivity disorder F90.9 [facility] [id number] [place] [address] 57288- 0572 Dec, [facility] [id number] [place] [address] 32315- 7496 Nov, [facility] [id number] [place] [address] 32755- 4557 Nov, [facility] [id number] [place] [address] 37278- 0653 Nov, [facility] [address] [place] [address] 69976- 5390 Nov, [facility] [id number] [place] [address] 86956- 3612 Oct, Lumbago with sciatica, left side M54.42 and Other chronic pain G89.29 [facility] [id number] [place] [address] 86588- 1818 Oct, Lumbago with sciatica, left side M54.42 ; Lumbago with sciatica, right side M54.41 ; Other chronic pain G89.29 and Suppurative hidradenitis L73.2 [facility] [id number] [place] [address] 47406- 1802 Oct, [facility] [id number] [place] [address] 35801- 5497 Sep, [facility] [id number] [place] [address] 53260- 7358 Sep, Unprotected sexual intercourse Z72.51 ; Hidradenitis suppurativa L73.2 ; Elevated fasting glucose R73.01 ; BMI 40.0-44.9, adult Z68.41 and Irregular menses N92.6 [facility] [address] [place] [address] 28968- 9852 Aug, [facility] [id number] [place] [address] 38178- 2748 Jul, Routine health maintenance Z00.00 ; Abscess L02.91 ; H/O hidradenitis suppurativa Z87.2 ; Irregular menses N92.6 ; BMI 40.0-44.9, adult Z68.41 ; Elevated fasting glucose R73.01 and Hypertriglyceridemia E78.1 [facility] [id number] [place] [address] 52718- 3294 Jul, [facility] [id number] [place] [address] 12069 -6415 Jul, Hidradenitis suppurativa L73.2 [facility] [address] [place] [address] 97362- 4399 Jul, Bipolar disorder, unspecified F31.9 ; Anxiety disorder, unspecified F41.9 and Attention deficit hyperactivity disorder F90.9 [facility] [place] [id number] [place] [address] 15210- 0807 June, [facility] [id number] [place] [address] 25685- 5531 June, [facility] [id number] [place] [address] 25521- 4026 May, [facility] [place] [id number] [place] [address] 59327- 8440 Apr, [facility] [id number] [place] [address] 85446- 2263 Apr, Well woman exam Z01.419 ; BMI 40.0-44.9, adult Z68.41 ; Tobacco use Z72.0 ; Family history of diabetes mellitus Z83.3 ; Hidradenitis suppurativa L73.2 ; Routine screening for STI (sexually transmitted infection) Z11.3 ; Unprotected sexual intercourse Z72.51 and Family history of breast cancer Z80.3 [facility] [id number] [place] [address] 73693- 4298 Apr, Bipolar disorder, unspecified F31.9 ; Anxiety disorder, unspecified F41.9 and Attention deficit hyperactivity disorder F90.9 [facility] [address], [place] [address]- 2531 Mar, [facility] [id number] [place] [address] 73203- 9512 Feb, [facility] [id number] [place] [address] 21596- 6998 Feb, [facility] [id number] [place] [address] 42382- 7514 Jan, Encounter for test, result negative Z32.02 and BMI 40.0-44.9, adult Z68.41 [facility] [id number] [place] [address] 41800- 3086 Jan, Bipolar disorder, unspecified F31.9 ; Anxiety disorder, unspecified F41.9 and Attn-defct hyperactivity disorder, predom inattentive type F90.[address] 68374- 2624 Jan, [address] 81551- 5864 Dec, [address] 59033- 8614 Dec, Bipolar disorder, unspecified F31.9 ; Attention deficit hyperactivity disorder F90.9 and Anxiety disorder, unspecified F41.[address] 45874- 3268 Nov, Irregular menses N92.6 ; Unprotected sexual intercourse Z72.51 ; Screening for STD sexually transmitted disease Z11.3 ; General counseling and advice for contraceptive management Z30.09 ; Oral contraceptive pill surveillance Z30.41 ; BMI 40.0-44.9, adult Z68.41 and H/O hidradenitis suppurativa Z87.2 [facility] [id number] [place] [address] [id number] Sep, Dental examination V72.2 [facility] [id number] [place] [address] 90060- 5975 Sep, Screen for STD (sexually transmitted disease) V74.5 and General counseling on prescription of oral contraceptives V25.01 [facility] [id number] [place] [address] 56815- 8557 May, [place] [id number] [place] [address] 24360- 5538 May, [place] [address] [id number] [place] [address]- 6797 30 Apr, 2014 [facility] [place] [facility] [address] [id number] [place] [address]- 5269 30 Apr, 2014 [facility] [place] [facility] [address] [id number] [place] [address]- 0464 Apr, 2014 [facility] [place] [facility] [address] [id number] [place] [address]- 6734 Apr, 2014 [facility] [place] [facility] [address] [id number] [place] [address]- 3166 Apr, 2014 [facility] [place] [facility] [address] [id number] [place] [address]- 5018 Apr, 2014 [facility] [place] [facility] [address] [facility] [facility] [id number] [place] [address]- 7213 Apr, [facility] [place] [facility] [address] [id number] [place] [address]- 6414 Mar, 2014 [facility] [place] [facility] [address] [id number] [place] [address]- 1032 Mar, 2014 [facility] [place] [facility] [address] [facility] [id number] [place] [address]- 2123 Mar, 2014 [facility] [place] [facility] [address] [facility] [id number] [place] [address]- 6892 Mar, 2014 [facility] [place] [facility] [address] [id number] [place] [address]- 0948 Mar, 2014 [facility] [place] [facility] [address] [id number] [place] 5800 Mar, 2014 [facility] [place] [facility] [address] [id number] [place] [address]- 4966 Jan, [facility] [place] [facility] [address] [address] [facility] [id number] [place] [address]- 2150 Jan, [facility] [place] [facility] [address] [facility] [id number] [place] [address]- 7717 Dec, [facility] [place] [facility] [address] [id number] [place] [address]- 1544 Dec, [facility] [place] [facility] [address] [id number] [place] [address]- 0083 Dec, [facility] [place] [facility] [address] [facility] [address] [facility] [id number] [place] [address]- 9182 Dec, [facility] [place] [facility] [address] [id number] [place] [address]- 6247 Sep, [facility] [place] [facility] [address] [id number] [place] [address]- 1513 Sep, [facility] [place] [facility] [address] [id number] [place] [address]- 1652 Apr, [facility] [place] [facility] [address] [facility] [address] [facility] [id number] [place] [address]- 6922 Apr, [facility] [place] [facility] [address] [id number] [place] [address]- 5955 Mar, [facility] [place] [facility] [address] [facility] [facility] [id number] [place] [address]- 9744 Mar, [facility] [place] [facility] [address] [facility] [address] [facility] [id number] [place] [address]- 4582 Mar, [facility] [place] [facility] [address] [id number] [place] [address]- 3033 Mar, [facility] [place] [facility] [address] [id number], [place] [address]- 5539 Jan, [facility] [place] [facility] [address] [id number] [place] [address]- 2704 Jan, [facility] [place] [facility] [address] [id number] [place] [address]- 1092 Dec, [facility] [place] [facility] [address] [facility] [facility] [id number] [place] [address]- 5415 Dec, [facility] [place] [facility] [address] [facility] [facility] [id number] [place] [address]- 2912 Dec, IMMUNIZATIONS No Known Immunizations SOCIAL HISTORY Never Assessed REASON FOR VISIT OB-4 wk--tcuppettRN PLAN OF CARE Activity Details Follow Up 4 Weeks Reason: VITAL SIGNS Height 64 in 2016-10-25 Weight 296.0 lbs 2016-10-25 Temperature 98.0 degrees Fahrenheit 2016-10-25 Heart Rate 88 bpm 2016-10-25 Respiratory Rate 20 2016-10-25 BMI 50.808 kg/m2 2016-10-25 Blood pressure systolic 118 mmHg 2016-10-25 Blood pressure diastolic 76 mmHg 2016-10-25 MEDICATIONS Medication Instructions Dosage Frequency Start Date End Date Duration Status Vitamin 27-0.8 MG Active Tums Active RESULTS Name Result Date Reference Range UA OB DIP (IN HOUSE) 2016-10-25 Glucose negative Protein trace PROCEDURES Procedure Date Ordered Result Body Site URINE-NO MICRO Oct 25, 2016 INSTRUCTIONS MEDICATIONS ADMINISTERED No Known Medications MEDICAL (GENERAL) HISTORY Type Description Date Medical History Hidradenitis Supprativa Medical History Bipolar Disorder Medical History ADHD Medical History Due May 14, 2017 Surgical History pilonidal cyst removal tailbone Surgical History 2018 Hospitalization History Dehydration & concussion 07/23/2016
--- OUTSIDE RECORDS SUMMARY | 2017-09-24 23:04 | XMS REPORT ---
Author Author VINCENT SELF [facility] Address [address] [place] [address] Phone Unavailable Care Team Providers Care Chimney Repairer Name Role Phone VINCENT SELF Unavailable Unavailable PROBLEMS Type Condition ICD9-CM Code DSG35-DX Code Onset Dates Condition Status SNOMED Code Problem Obesity affecting in second trimester O99.212 Active 371114792909 Problem BMI 50.0-59.9, adult Z68.43 Active 994220064 Problem Gastro-esophageal reflux disease without esophagitis K21.9 Active 530634804 Problem Post depression F53 Active 34194273 Problem Gestational diabetes mellitus (GDM) in third trimester, gestational diabetes method of control unspecified O24.419 Active 23336387 Problem Obesity during in third trimester O99.213 Active 960644256 Problem Obesity affecting in third trimester O99.213 Active 802405684504 Problem Abdominal pannus E65 Active 3001453225229 Problem Gestational diabetes mellitus (GDM) in third trimester controlled on oral hypoglycemic drug O24.415 Active 81827156 Problem Bipolar disorder, unspecified F31.9 Active 55477250 Problem Hypertriglyceridemia E78.1 Active 667116814 Problem Anxiety disorder, unspecified F41.9 Active 351907725 Problem Lumbago with sciatica, left side M54.42 Active 233621803 Problem Lumbago with sciatica, right side M54.41 Active 438686268 Problem Other chronic pain G89.29 Active 73837437 Problem Attention deficit hyperactivity disorder F90.9 Active 099180840 Problem Suppurative hidradenitis L73.2 Active 13777483 Problem Metabolic syndrome E88.81 Active 152265390 ALLERGIES Substance Reaction Event Type Date Status Bees anaphylaxis Non Drug Allergy Dec, Active ENCOUNTERS Encounter Location Date Diagnosis [facility] [address] [facility] [id number] [address] Jul, [facility] [id number] [address] June, [place] [id number] [place] [address] 88097- 5232 June, Bipolar disorder, unspecified F31.9 ; Attention deficit hyperactivity disorder F90.9 ; High risk medication use Z79.899 and BMI 50.0- 59.9, adult Z68.43 [place] [id number] [place] [address] 10887- 0142 June, [place] [id number] [place] [address] 59238- 7329 June, Hidradenitis suppurativa L73.2 and BMI 50.0-59.9, adult Z68.43 [place] [id number] [place] [address] 31836- 4047 June, Bipolar disorder, unspecified F31.9 and BMI 50.0-59.9, adult Z68.43 [place] [id number] [place] [address] 30982- 5759 May, [place] [id number] [place] [address] 20904- 3596 May, Lumbago with sciatica, left side M54.42 ; care and examination Z39.2 ; Lumbago with sciatica, right side M54.41 ; Other chronic pain G89.29 ; BMI 50.0-59.9, adult Z68.43 ; Abdominal pannus E65 ; Suppurative hidradenitis L73.2 and Post depression F53 [place] [address] [place] [address] 22886- 2388 Apr, [place] [id number] [place] [address] 34425- 8882 Apr, Abdominal pannus E65 and BMI 45.0-49.9, adult Z68.42 [place] [address] [place] [address] 16471- 5943 Apr, Screening for iron deficiency anemia Z13.0 [place] [address] [address] 2898 Apr, Bipolar disorder, unspecified F31.9 [place] [id number] [place] [address] 06162- 1176 07 Apr, 2017 Obesity during in third trimester O99.213 ; Third trimester Z34.93 ; Gestational diabetes mellitus (GDM) in third trimester controlled on oral hypoglycemic drug O24.415 ; 37 weeks gestation of Z3A.37 and Oligohydramnios in third trimester, single or unspecified fetus O41.03X0 [place] [id number] [place] [address] 01515- 3129 28 Mar, 2017 Third trimester Z34.93 [place] [id number] [place] [address] 01312- 2116 26 Mar, 2017 Gestational diabetes mellitus (GDM) in third trimester controlled on oral hypoglycemic drug O24.415 [place] [id number] [place] [address] 65465- 5475 Mar, [place] [id number] [place] [address] 13071- 5047 Mar, Third trimester Z34.93 ; Gestational diabetes mellitus (GDM) in third trimester controlled on oral hypoglycemic drug O24.415 and 35 weeks gestation of Z3A.35 [place] [id number] [place] [address] 84389- 4462 15 Mar, 2017 BMI 50.0-59.9, adult Z68.43 and Bipolar disorder, unspecified F31.9 [place] [address] [place] [address] 80175- 1331 13 Mar, 2017 Diet controlled gestational diabetes mellitus (GDM), antepartum O24.410 [place] [address] [place] [address] 28259- 0623 07 Mar, 2017 33 weeks gestation of Z3A.33 ; Gestational diabetes mellitus (GDM) in third trimester controlled on oral hypoglycemic drug O24.415 ; Third trimester Z34.93 and Obesity affecting in third trimester O99.213 [place] [address] [place] [address] 38665- 0878 Mar, [place] [id number] [place] [address] 25043- 7360 Feb, Third trimester Z34.93 ; Encounter for immunization Z23 ; Gestational diabetes mellitus (GDM) in third trimester controlled on oral hypoglycemic drug O24.415 ; Obesity during in third trimester O99.213 and 31 weeks gestation of Z3A.31 [place] [id number] [place] [address] 87942- 5015 Feb, [place] [id number] [place] [address] 19176- 4160 Feb, Gestational diabetes mellitus (GDM) in third trimester, gestational diabetes method of control unspecified O24.419 [place] [id number] [place] [address] 23433- 4782 Feb, [place] [id number] [place] [address] 23815- 7334 Feb, [place] [id number] [place] [address] 00902- 5074 Feb, Bipolar disorder, unspecified F31.9 and BMI 50.0-59.9, adult Z68.43 [place] [address] [place] [address] 82511- 7093 10 Feb, 2017 29 weeks gestation of Z3A.29 ; Gestational diabetes mellitus (GDM) in third trimester, gestational diabetes method of control unspecified O24.419 ; Third trimester Z34.93 ; Obesity affecting in third trimester O99.213 and BMI 50.0-59.9, adult Z68.43 [place] [address] [place] [address] 86119- 0111 Jan, Abnormal glucose tolerance test (GTT) R73.02 [place] [id number] [place] [address] [id number] 15 Jan, 2017 Dental examination Z01.20 [place] [address] 31155- 3760 14 Jan, 2017 Bipolar disorder, unspecified F31.9 [place] [id number] [place] [address] 82374- 9700 12 Jan, 2017 25 weeks gestation of Z3A.25 ; Second trimester Z34.92 ; Gastro-esophageal reflux disease without esophagitis K21.9 ; Diseases of the digestive system complicating , second trimester O99.612 ; Abnormal ultrasonic finding on screening of mother O28.3 and BMI 50.0-59.9, adult Z68.43 [place] [address] 14484- 8107 05 Jan, 2017 [place] [address] 76733- 8468 30 Dec, 2016 [place] [address] 52119- 6979 14 Dec, 2016 Dental examination Z01.20 [place] [address] 12306- 0338 14 Dec, 2016 Second trimester Z34.92 ; 21 weeks gestation of Z3A.21 and Obesity affecting in second trimester O99.212 [place] [id number] [place] [address] 42820- 7963 13 Dec, 2016 [place] [address] 12267- 4802 10 Dec, 2016 Lump of right breast N63.10 ; Abscess of left thigh L02.416 and BMI 45.0-49.9, adult Z68.42 [facility] [id number] [place] [address] [id number] 10 Dec, 2016 Dental examination Z01.20 [place] [address] 59237- 7605 Dec, [facility] [address] [address]- 4733 Dec, Bipolar disorder, unspecified F31.9 [facility] [address] [address]- 7187 Nov, [facility] [id number] [place] [address] 80203- 4324 Nov, [facility] [id number] [place] [address] 68688- 7305 Nov, 17 weeks gestation of Z3A.17 and Right non- suppurative otitis media H65.91 [facility] [id number] [place] [address] 68339- 8595 Nov, [facility] [id number] [place] [address] 11840- 3637 Nov, [facility] [id number] [place] [address] 67856- 0966 Nov, Bipolar disorder, unspecified F31.9 [facility] [address] [place] [address] 68148- 4380 10 Nov, 2016 16 weeks gestation of Z3A.16 ; Second trimester Z34.92 and Obesity affecting in second trimester O99.212 [facility] [address] [address] Nov, Encounter for dental examination Z01.20 [facility] [address] [place] [address] 72245- 0480 Oct, [facility] [address] [place] [address] 16674- 9638 Oct, 12 weeks gestation of Z3A.12 ; First trimester Z34.90 and Obesity affecting in first trimester O99.211 [facility] [address] [address]- 3516 Sep, [facility] [id number] [address]- 6439 Sep, [place] [id number] [place] [address] 59372- 5771 Sep, Bipolar disorder, unspecified F31.9 [place] [id number] [place] [address] 90072- 0164 Sep, [place] [id number] [place] [address] 32398- 6955 Sep, [place] [id number] [place] [address] 26999- 7388 Sep, Normal , first Z34.00 [place] [id number] [place] [address] 53859- 1944 Sep, Normal , first Z34.00 ; 8 weeks gestation of Z3A.08 and Obesity affecting in first trimester O99.211 [place] [id number] [place] [address] 39648- 6749 Sep, Anxiety disorder, unspecified F41.9 [place] [id number] [place] [address] 72815- 4538 Sep, [place] [id number] [place] [address] 19013- 0436 Sep, Encounter for test, result unknown Z32.00 [place] [id number] [place] [address] 69712- 2233 Aug, Anxiety disorder, unspecified F41.9 [place] [id number] [place] [address] 72103- 7530 Jul, Suppurative hidradenitis L73.2 ; Metabolic syndrome E88.81 ; BMI 40.0-44.9, adult Z68.41 and High risk sexual behavior Z72.51 [place] [id number] [place] [address] 09061- 0724 Jul, Anxiety disorder, unspecified F41.9 [place] [address] [address]- 9082 June, Anxiety disorder, unspecified F41.9 ; Attention deficit hyperactivity disorder F90.9 and Bipolar disorder, unspecified F31.9 [place] [id number] [place] [address] 47940- 0098 June, Attention deficit hyperactivity disorder F90.9 [place] [id number] [place] [address] 51415- 2503 May, Attention deficit hyperactivity disorder F90.9 [place] [id number] [place] [address] 44392- 4546 Apr, Attention deficit hyperactivity disorder F90.9 [place] [id number] [place] [address] 40438- 6996 14 Mar, 2016 Abscess L02.91 and Screening for STD sexually transmitted disease Z11.3 [place] [id number] [place] [address] 02715- 9444 Mar, Attention deficit hyperactivity disorder F90.9 [place] [id number] [place] [address] 17272- 1649 Feb, Attention deficit hyperactivity disorder F90.9 [place] [id number] [place] [address] 29514- 6146 Feb, Attention deficit disorder of adult F98.8 and DMDD ( disruptive mood dysregulation disorder) F34.81 [place] [address] [place] [address] 82225- 0083 Jan, Exposure to sexually transmitted disease (STD) Z20.2 and Metabolic syndrome E88.81 [place] [id number] [place] [address] 96191- 6115 Jan, Possible exposure to STD Z20.2 ; BMI 40.0-44.9, adult Z68.41 ; Metabolic syndrome E88.81 ; Elevated fasting glucose R73.01 and Hypertriglyceridemia E78.1 [place] [address] [address]- 2718 Jan, Possible exposure to STD Z20.2 ; Lumbago with sciatica, left side M54.42 ; Lumbago with sciatica, right side M54.41 ; BMI 40.0-44.9, adult Z68.41 ; Metabolic syndrome E88.81 ; Elevated fasting glucose R73.01 ; Hypertriglyceridemia E78.1 and Suppurative hidradenitis L73.2 [facility] [id number] [place] [address] 82909- 9581 Dec, Attention deficit hyperactivity disorder F90.9 [facility] [id number] [place] [address] 03271- 9580 Dec, [facility] [id number] [place] [address] 71179- 1961 Nov, [facility] [id number] [place] [address] 34990- 6841 Nov, [facility] [id number] [place] [address] 61600- 9538 Nov, [facility] [id number] [place] [address] 87906- 8301 Nov, [facility] [id number] [place] [address] 32318- 2189 Oct, Lumbago with sciatica, left side M54.42 and Other chronic pain G89.29 [facility] [id number] [place] [address] 11784- 3657 Oct, Lumbago with sciatica, left side M54.42 ; Lumbago with sciatica, right side M54.41 ; Other chronic pain G89.29 and Suppurative hidradenitis L73.2 [facility] [id number] [place] [address] 31536- 6206 Oct, [facility] [id number] [place] [address] 02209- 7172 Sep, [place] [address] [address]- 5962 Sep, Unprotected sexual intercourse Z72.51 ; Hidradenitis suppurativa L73.2 ; Elevated fasting glucose R73.01 ; BMI 40.0-44.9, adult Z68.41 and Irregular menses N92.6 [place] [id number] [place] [address] 87349- 4236 Aug, [place] [id number] [place] [address] 70821- 7385 Jul, Routine health maintenance Z00.00 ; Abscess L02.91 ; H/O hidradenitis suppurativa Z87.2 ; Irregular menses N92.6 ; BMI 40.0-44.9, adult Z68.41 ; Elevated fasting glucose R73.01 and Hypertriglyceridemia E78.1 [place] [id number] [place] [address] 65421- 0364 Jul, [facility] [id number] [place] [address] 11561 -4709 Jul, Hidradenitis suppurativa L73.2 [place] [id number] [place] [address] 98461- 7897 Jul, Bipolar disorder, unspecified F31.9 ; Anxiety disorder, unspecified F41.9 and Attention deficit hyperactivity disorder F90.9 [place] [id number] [place] [address] 40783- 2532 June, [place] [id number] [place] [address] 51907- 2608 June, [facility] [id number] [place] [address] 75599- 8594 May, [place] [id number] [place] [address] 04328- 1800 Apr, [place] [id number] [place] [address] 94670- 3581 16 Apr, 2016 Well woman exam Z01.419 ; BMI 40.0-44.9, adult Z68.41 ; Tobacco use Z72.0 ; Family history of diabetes mellitus Z83.3 ; Hidradenitis suppurativa L73.2 ; Routine screening for STI (sexually transmitted infection) Z11.3 ; Unprotected sexual intercourse Z72.51 and Family history of breast cancer Z80.[address] 30818- 8241 09 Apr, 2015 Bipolar disorder, unspecified F31.9 ; Anxiety disorder, unspecified F41.9 and Attention deficit hyperactivity disorder F90.[address] 34621- 4376 Mar, [address] 30017- 8905 Feb, [address] 04089- 7118 Feb, [place] [address] 33076- 3300 Jan, Encounter for test, result negative Z32.02 and BMI 40.0-44.9, adult Z68.[address] 42552- 3938 Jan, Bipolar disorder, unspecified F31.9 ; Anxiety disorder, unspecified F41.9 and Attn-defct hyperactivity disorder, predom inattentive type F90.0 [place] [id number] [place] [address] 30305- 4024 Jan, [address] 45952- 7990 Dec, [address] 18624- 8526 Dec, Bipolar disorder, unspecified F31.9 ; Attention deficit hyperactivity disorder F90.9 and Anxiety disorder, unspecified F41.9 [facility] [address] [address]- 4471 Nov, Irregular menses N92.6 ; Unprotected sexual intercourse Z72.51 ; Screening for STD sexually transmitted disease Z11.3 ; General counseling and advice for contraceptive management Z30.09 ; Oral contraceptive pill surveillance Z30.41 ; BMI 40.0-44.9, adult Z68.41 and H/O hidradenitis suppurativa Z87.2 [facility] [id number] [place] [address] [id number] Sep, Dental examination V72.2 [facility] [id number] [place] [address] 487950- 7791 Sep, Screen for STD (sexually transmitted disease) V74.5 and General counseling on prescription of oral contraceptives V25.01 [facility] [id number] [place] [address] 87671- 8360 14 May, 2014 [facility] [id number] [place] [address] 19452- 1846 May, [facility] [id number] [place] [address] [id number]- 5497 Apr, [facility] [id number] [place] [address] 42674336- 7192 30 Apr, 2014 [facility] [address] [address]- 4248 Apr, [facility] [id number] [place] [address] [id number]- 0548 Apr, [facility] [id number] [place] [address] [id number]- 7959 Apr, [facility] [id number] [place] [address] [id number]- 1294 Apr, [facility] [address] [address]- 1456 Apr, [facility] [id number] [place] [address]- 2531 Mar, 2014 [facility] [place] [facility] [address] [id number] [place] [address]- 8790 Mar, 2014 [facility] [place] [facility] [address] [id number] [place] [address]- 5538 Mar, 2014 [facility] [place] [facility] [address] [id number] [place] [address]- 0613 Mar, 2014 [facility] [place] [facility] [address] [id number] [place] [address]- 4750 Mar, 2014 [facility] [place] [facility] [address] [id number] [place] [address]- 1846 Mar, 2014 [facility] [place] [facility] [address] [id number] [place] [address]- 5070 Jan, [facility] [place] [facility] [address] [id number] [place] [address]- 2049 Jan, [facility] [place] [facility] [address] [id number] [place] [address]- 3654 Dec, [facility] [place] [facility] [address] [id number] [place] [address]- 2481 Dec, [facility] [place] [facility] [address] [id number] [place] [address]- 5516 Dec, [facility] [place] [facility] [address] [id number] [place] [address]- 1161 Dec, [facility] [place] [facility] [address] [id number] [place] [address]- 4077 Sep, [facility] [place] [facility] [address] [id number] [place] [address]- 7300 Sep, [facility] [place] [facility] [address] [id number] [place] [address]- 7993 Apr, [facility] [place] [facility] [address] [id number] [address]- 2197 Apr, [facility] [id number] [address]- 1594 Mar, [facility] [id number] 3396 Mar, [facility] [address] [address]- 0108 Mar, [facility] [address] 8467 Mar, [facility] [address] 1286 Jan, [facility] [address] [address]- 1707 Jan, [facility] [address] [address]- 7179 Dec, [facility] [address] [address]- 5067 Dec, [facility] [address] [address]- 5503 Dec, IMMUNIZATIONS No Known Immunizations SOCIAL HISTORY Never Assessed REASON FOR VISIT SRP PLAN OF CARE Activity Details Follow Up malik Reason:srp/perio chart VITAL SIGNS Blood pressure systolic 100 mmHg 2016-12-23 Blood pressure diastolic 54 mmHg 2016-12-23 MEDICATIONS Unknown Medications RESULTS No Results PROCEDURES Procedure Date Ordered Result Body Site Periodontal scaling and root Dec 23, 2016 Billing Notes on claim Dec 23, 2016 INSTRUCTIONS MEDICATIONS ADMINISTERED No Known Medications MEDICAL (GENERAL) HISTORY Type Description Date Medical History Hidradenitis Supprativa Medical History Bipolar Disorder Medical History ADHD Medical History Due May 14, 2017 Surgical History pilonidal cyst removal tailbone Surgical History 2018 Hospitalization History Dehydration & concussion 07/23/2016 Hospitalization History child 2018
--- OUTSIDE RECORDS SUMMARY | 2017-09-24 23:06 | XMS REPORT | Continuity of Care Document ---
Author Author [facility] Address Unknown Phone Unavailable Allergies Active Description Code Type Severity Reaction Onset Reported/Identified Relationship to Patient Clinical Status Yes No Known Allergies [id number] Drug Allergy Unknown N/A 02/15/2011 Yes No Known Allergies [id number] NA N/A N/A 09/10/2012 Yes No Known Drug Allergies [id number] Drug Allergy Unknown N/A 04/25/2013 Medications There is no data. Problems Date Dx Coded Attending Type Code Diagnosis Diagnosed By 01/08/2013 TERESE CORCORAN DO 709.9 SKIN LESIONS 01/08/2013 TERESE CORCORAN DO V70.0 EXAM - ROUTINE H&P 01/08/2013 DICKSON HALE LISBETH R 709.9 SKIN LESIONS 01/08/2013 DICKSON HALE LISBETH R V70.0 EXAM - ROUTINE H&P 01/08/2013 DICKSON HALE LISBETH R 709.9 SKIN LESIONS 01/08/2013 DICKSON HALE LISBETH R V70.0 EXAM - ROUTINE H&P 01/08/2013 DICKSON HALE LISBETH R 709.9 SKIN LESIONS 01/08/2013 DICKSON HALE LISBETH R V70.0 EXAM - ROUTINE H&P 01/08/2013 DICKSON HALE LISBETH R 709.9 SKIN LESIONS 01/08/2013 DICKSON HALE LISBETH R V70.0 EXAM - ROUTINE H&P 01/08/2013 ARAMIS PRUITT PHD 709.9 SKIN LESIONS 01/08/2013 ARAMIS PRUITT PHD V70.0 EXAM - ROUTINE H&P 01/08/2013 HESHAM NGUYEN DDS 709.9 SKIN LESIONS 01/08/2013 HESHAM NGUYEN DDS V70.0 EXAM - ROUTINE H&P 01/08/2013 RAI CASTLE 709.9 SKIN LESIONS 01/08/2013 RAI CASTLE V70.0 EXAM - ROUTINE H&P 02/01/2013 DICKSON WAX PATTERN COATER, LISBETH R 786.2 COUGH 02/01/2013 DICKSON WAX PATTERN COATER, LISBETH R 786.2 COUGH 02/01/2013 DICKSON WAX PATTERN COATER, LISBETH R 786.2 COUGH 02/01/2013 DICKSON WAX PATTERN COATER, LISBETH R 786.2 COUGH 02/01/2013 SONAL PHD, ARAMIS Pierre 786.2 COUGH 02/01/2013 PATRICK AMADOR, HESHAM 786.2 COUGH 02/01/2013 RAI CASTLE 786.2 COUGH 03/19/2013 DICKSON WAX PATTERN COATER, LISBETH R 300.00 AN ANXIETY UNSPEC 03/19/2013 DICKSON WAX PATTERN COATER, LISBETH R 782.1 RASH 03/19/2013 DICKSON WAX PATTERN COATER, LISBETH R V70.5 EXAM - PRE-EMPLOYMENT 03/19/2013 DICKSON WAX PATTERN COATER, LISBETH R 300.00 AN ANXIETY UNSPEC 03/19/2013 DICKSON WAX PATTERN COATER, LISBETH R 782.1 RASH 03/19/2013 DICKSON LUDWIGN, LISBETH R V70.5 EXAM - PRE-EMPLOYMENT 03/19/2013 DICKSON LUDWIGN, LISBETH R 300.00 AN ANXIETY UNSPEC 03/19/2013 DICKSON WAX PATTERN COATER, LISBETH R 782.1 RASH 03/19/2013 DICKSON LUDWIGN, LISBETH R V70.5 EXAM - PRE-EMPLOYMENT 03/19/2013 SONAL PHD, ARAMIS Pierre 300.00 AN ANXIETY UNSPEC 03/19/2013 SONAL PHD, ARAMIS Pierre 782.1 RASH 03/19/2013 SONAL PHD, ARAMIS Pierre V70.5 EXAM - PRE-EMPLOYMENT 03/19/2013 HESHAM NGUYEN DDS 300.00 AN ANXIETY UNSPEC 03/19/2013 PATRICK JAYS, HESHAM 782.1 RASH 03/19/2013 NGUYEN PIERRES, HESHAM V70.5 EXAM - PRE-EMPLOYMENT 03/19/2013 RAI CASTLE 300.00 AN ANXIETY UNSPEC 03/19/2013 RAI CASTLE 782.1 RASH 03/19/2013 RAI CASTLE V70.5 EXAM - PRE-EMPLOYMENT 04/25/2013 HEYDI FUENTES, JAYE Huitron Ot 112.3 CUTANEOUS CANDIDIASIS 04/25/2013 HEYDI FUENTES, JAYE Huitron Ot 682.2 CELLULITIS OF TRUNK 05/16/2013 KIMMIE BANKS DO Ot 782.1 NONSPECIF SKIN ERUPT NEC 05/16/2013 KIMMIE BANKS DO Ot E849.0 ACCIDENT IN HOME 05/16/2013 KIMMIE BANKS DO Ot E946.9 ADV EFF SKIN AGENT NOS 05/26/2013 MUNIR FUENTES, TONYA Pierre Ot 133.0 SCABIES 05/26/2013 TONYA AMARAL MD, Ot 686.9 LOCAL SKIN INFECTION NOS 05/26/2013 TONYA AMARAL MD, Ot 782.1 NONSPECIF SKIN ERUPT NEC 09/26/2013 DICKSON HALE, LISBETH R 780.60 FEVER, UNSPECIFIED 09/26/2013 DICKSON HALE, LISBETH R 780.60 FEVER, UNSPECIFIED 09/26/2013 SONAL PHD, ARAMIS Pierre 780.60 FEVER, UNSPECIFIED 09/26/2013 PATRICK AMADOR, HESHAM 780.60 FEVER, UNSPECIFIED 09/26/2013 RAI CASTLE 780.60 FEVER, UNSPECIFIED 12/18/2013 DICKSON HALE, LISBETH R 278.00 OBESITY 12/18/2013 DICKSON HALE, LISBETH R 686.9 UNSPECIFIED LOCAL INFECTION OF SKIN AND SUBCUTANEOUS TISSUE 12/18/2013 SOANL PHD, ARAMIS Pierre 278.00 OBESITY 12/18/2013 ARAMIS PRUITT PHD 686.9 UNSPECIFIED LOCAL INFECTION OF SKIN AND SUBCUTANEOUS TISSUE 12/18/2013 HESHAM NGUYEN DDS 278.00 OBESITY 12/18/2013 HESHAM NGUYEN DDS 686.9 UNSPECIFIED LOCAL INFECTION OF SKIN AND SUBCUTANEOUS TISSUE 12/18/2013 RAI CASTLE 278.00 OBESITY 12/18/2013 RAI CASTLE 686.9 UNSPECIFIED LOCAL INFECTION OF SKIN AND SUBCUTANEOUS TISSUE 01/03/2014 SONAL PHD, ARAMIS Pierre 296.80 MO BIPOLAR NOS 01/03/2014 PATRICK JAYSHESHAM 296.80 MO BIPOLAR NOS 01/03/2014 RAI CASTLE 296.80 MO BIPOLAR NOS 01/13/2014 PATRICK JAYSHESHAM 296.89 MO BIPOLAR II 01/13/2014 RAI CASTLE 296.89 MO BIPOLAR II 02/11/2014 AVILA, PETER J WAX PATTERN COATER Ot 490 BRONCHITIS NOS 02/11/2014 OLIVA AVILA WAX PATTERN COATER Ot 708.9 URTICARIA NOS 02/11/2014 OLIVA AVILA WAX PATTERN COATER Ot 780.60 FEVER, UNSPECIFIED 03/28/2014 RAI CASTLE 314.00 ADHD INATTENTIVE 04/04/2014 Ot 842.00 SPRAIN OF WRIST NOS 04/04/2014 Ot 959.4 HAND INJURY NOS 04/04/2014 Ot E000.8 OTHER EXTERNAL CAUSE STATUS 04/04/2014 Ot E849.0 ACCIDENT IN HOME 04/04/2014 Ot E888.1 FALL STRIKING OBJECT NEC 04/09/2014 RAI CASTLE 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, BREAST 04/09/2014 RAI CASTLE V25.9 CONTRACEPTION MANAGEMENT 04/09/2014 RAI CASTLE V65.42 COUNSELING - SMOKING CESSATION 04/09/2014 RAI CASTLE V72.31 EMOTIONAL SUPPORT TEACHER EXAM, ROUTINE 04/09/2014 RAI CASTLE V74.5 STD SCREEN 04/09/2014 RAI CASTLE V76.10 BREAST CANCER SCREENING 04/09/2014 RAI CASTLE V76.2 CERVICAL CANCER SCREENING (PAP SMEAR) 04/14/2015 MAURA MILTON Ot F17.210 NICOTINE DEPENDENCE, CIGARETTES, UNCOMPL 04/14/2015 MAURA MILTON Ot M51.17 INTVRT DISC DISORDERS W RADICULOPATHY, L 09/14/2015 MOJAYE HERNANDEZ S F17.210 NICOTINE DEPENDENCE, CIGARETTES, UNCOMPLICATED MOJAYE HERNANDEZ PA 09/14/2015 MOJAYE HERNANDEZ S F31.9 BIPOLAR DISORDER, UNSPECIFIED MOULIN, JAYE PA 09/14/2015 MOYAMILE HERNANDEZSHUA PA P L73.2 HIDRADENITIS SUPPURATIVA YAMILE PARRASHUA PA 06/05/2016 VIVIAN GASTON APRN Ot M54.42 LUMBAGO WITH SCIATICA, LEFT SIDE 06/05/2016 OLIVA AVILA APRN Ot J02.9 ACUTE PHARYNGITIS, UNSPECIFIED 06/05/2016 OLIVA AVILA WAX PATTERN COATER Ot J40 BRONCHITIS, NOT SPECIFIED ACUTE OR CH 06/07/2016 OLIVA AVILA WAX PATTERN COATER Ot J02.9 ACUTE PHARYNGITIS, UNSPECIFIED 06/07/2016 OLIVA AVILA WAX PATTERN COATER Ot J40 BRONCHITIS, NOT SPECIFIED ACUTE OR CH 09/24/2016 TONYA AMARAL MD Ot F31.9 BIPOLAR DISORDER, UNSPECIFIED 09/24/2016 TONYA AMARAL MD Ot F41.9 ANXIETY DISORDER, UNSPECIFIED 09/24/2016 TONYA AMARAL MD Ot K21.9 GASTRO-ESOPHAGEAL REFLUX DISEASE WITHOUT 09/24/2016 TONYA AMARAL MD Ot L02.211 CUTANEOUS ABSCESS OF ABDOMINAL WALL 09/24/2016 TONYA AMARAL MD Ot L50.9 URTICARIA, UNSPECIFIED 09/24/2016 TONYA AMARAL MD Ot M19.90 UNSPECIFIED OSTEOARTHRITIS, UNSPECIFIED 09/24/2016 TONYA AMARAL MD Ot Z87.891 PERSONAL HISTORY OF NICOTINE DEPENDENCE 09/24/2016 MARILIN VIVIAN Bibi HALE Ot M54.42 LUMBAGO WITH SCIATICA, LEFT SIDE 09/25/2016 TONYA AMARAL MD Ot F31.9 BIPOLAR DISORDER, UNSPECIFIED 09/25/2016 TONYA AMARAL MD Ot F41.9 ANXIETY DISORDER, UNSPECIFIED 09/25/2016 TONYA AMARAL MD Ot K21.9 GASTRO-ESOPHAGEAL REFLUX DISEASE WITHOUT 09/25/2016 TONYA AMARAL MD Ot L02.211 CUTANEOUS ABSCESS OF ABDOMINAL WALL 09/25/2016 TONYA AMARAL MD Ot L50.9 URTICARIA, UNSPECIFIED 09/25/2016 TONYA AMARAL MD Ot M19.90 UNSPECIFIED OSTEOARTHRITIS, UNSPECIFIED 09/25/2016 TONYA AMARAL MD Ot Z87.891 PERSONAL HISTORY OF NICOTINE DEPENDENCE 09/26/2016 DARRENSHILPI Dumont DOA K Ot F31.9 BIPOLAR DISORDER, UNSPECIFIED 09/26/2016 DARREN ZHOU KIMMIE K Ot F41.9 ANXIETY DISORDER, UNSPECIFIED 09/26/2016 SHILPI BANKS DOA K Ot K21.9 GASTRO-ESOPHAGEAL REFLUX DISEASE WITHOUT 09/26/2016 SHILPI BANKS DOA K Ot L50.9 URTICARIA, UNSPECIFIED 09/26/2016 DARREN ZHOU KIMMIE K Ot M19.90 UNSPECIFIED OSTEOARTHRITIS, UNSPECIFIED 09/26/2016 DARREN DO, KIMMIE K Ot O99.341 OTH MENTAL DISORDERS COMPLICATING PREGNA 09/26/2016 DARREN DO, KIMMIE K Ot O99.611 DISEASES OF THE DGSTV SYS COMP 09/26/2016 DARREN DO, KIMMIE K Ot O99.72 DISEASES OF THE SKIN, SUBCU COMPLICATING 09/26/2016 DARREN DO, KIMMIE K Ot O99.89 OTH DISEASES AND CONDITIONS COMPL PREG/C 09/26/2016 DARREN DO, KIMMIE K Ot Z3A.09 9 WEEKS GESTATION OF 09/26/2016 DARREN DO, KIMMIE K Ot Z87.891 PERSONAL HISTORY OF NICOTINE DEPENDENCE 09/26/2016 VIVIAN GASTON APRN Ot M54.42 LUMBAGO WITH SCIATICA, LEFT SIDE 09/30/2016 DARREN DO, KIMMIE K Ot F31.9 BIPOLAR DISORDER, UNSPECIFIED 09/30/2016 DARREN DO, KIMMIE K Ot F41.9 ANXIETY DISORDER, UNSPECIFIED 09/30/2016 DARREN DO, KIMMIE K Ot K21.9 GASTRO-ESOPHAGEAL REFLUX DISEASE WITHOUT 09/30/2016 DARREN DO, KIMMIE K Ot L50.9 URTICARIA, UNSPECIFIED 09/30/2016 DARREN DO, KIMMIE K Ot M19.90 UNSPECIFIED OSTEOARTHRITIS, UNSPECIFIED 09/30/2016 DARREN DO, KIMMIE K Ot O99.341 OTH MENTAL DISORDERS COMPLICATING PREGNA 09/30/2016 DARREN DO, KIMMIE K Ot O99.611 DISEASES OF THE DGSTV SYS COMP 09/30/2016 DARREN DO, KIMMIE K Ot O99.72 DISEASES OF THE SKIN, SUBCU COMPLICATING 09/30/2016 DARREN DO, KIMMIE K Ot O99.89 OTH DISEASES AND CONDITIONS COMPL PREG/C 09/30/2016 DARREN DO, KIMMIE K Ot Z3A.09 9 WEEKS GESTATION OF 09/30/2016 DARREN DO, KIMMIE K Ot Z87.891 PERSONAL HISTORY OF NICOTINE DEPENDENCE 10/05/2016 VIVIAN GASTON APRN Ot M54.42 LUMBAGO WITH SCIATICA, LEFT SIDE 10/06/2016 VIVIAN GASTON WAX PATTERN COATER Ot M54.42 LUMBAGO WITH SCIATICA, LEFT SIDE 10/11/2016 EVERARDO HUNT MD Ot Z36 ENCOUNTER FOR SCREENING OF MOT 10/11/2016 EVERARDO HUNT MD Ot Z3A.09 9 WEEKS GESTATION OF 10/19/2016 EVERARDO HUNT MD Ot Z36 ENCOUNTER FOR SCREENING OF MOT 10/19/2016 EVERARDO HUNT MD Ot Z3A.09 9 WEEKS GESTATION OF 10/31/2016 EVERARDO HUNT MD Ot Z36 ENCOUNTER FOR SCREENING OF MOT 10/31/2016 EVERARDO HUNT MD Ot Z3A.09 9 WEEKS GESTATION OF 11/28/2016 DARREN DO KIMMIE K Ot F31.9 BIPOLAR DISORDER, UNSPECIFIED 11/28/2016 DARREN DO KIMMIE K Ot F41.9 ANXIETY DISORDER, UNSPECIFIED 11/28/2016 DARREN DO KIMMIE K Ot F90.9 ATTENTION-DEFICIT HYPERACTIVITY DISORDER 11/28/2016 DARREN DO KIMMIE K Ot H66.91 OTITIS MEDIA, UNSPECIFIED, RIGHT EAR 11/28/2016 DARREN ZHOU KIMMIE K Ot J06.9 ACUTE UPPER RESPIRATORY INFECTION, UNSPE 11/28/2016 DARREN ZHOU KIMMIE K Ot K21.9 GASTRO-ESOPHAGEAL REFLUX DISEASE WITHOUT 11/28/2016 DARREN DO KIMMIE K Ot O99.342 OTH MENTAL DISORDERS COMP , SEC 11/28/2016 DARREN DO KIMMIE K Ot O99.512 DISEASES OF THE RESP SYS COMP , 11/28/2016 DARREN ZHOU KIMMIE K Ot O99.612 DISEASES OF THE DGSTV SYS COMP 11/28/2016 DARREN ZHOU KIMMIE K Ot O99.89 OTH DISEASES AND CONDITIONS COMPL PREG/C 11/28/2016 DARREN DO KIMMIE K Ot R05 COUGH 11/28/2016 DARREN DO KIMMIE K Ot Z3A.16 16 WEEKS GESTATION OF 11/28/2016 DARREN ZHOU KIMMIE K Ot Z87.891 PERSONAL HISTORY OF NICOTINE DEPENDENCE 01/02/2017 VIVIAN GASTON APRN Ot M54.42 LUMBAGO WITH SCIATICA, LEFT SIDE 01/02/2017 EVERARDO HUNT MD Ot Z36 ENCOUNTER FOR SCREENING OF MOT 01/02/2017 EVERARDO HUNT MD Ot Z3A.09 9 WEEKS GESTATION OF 01/03/2017 DONALD NATH MD Ot N63.10 UNSPECIFIED LUMP IN THE RIGHT BREAST, UN 01/09/2017 EVERARDO HUNT MD Ot Z34.92 ENCNTR FOR SUPRVSN OF NORMAL PREG, UNSP, 01/09/2017 EVERARDO HUNT MD Ot Z3A.22 22 WEEKS GESTATION OF 01/17/2017 P N89.8 OTHER SPECIFIED NONINFLAMMATORY DISORDERS OF VAGINA 01/19/2017 DONALD NATH MD Ot N63.10 UNSPECIFIED LUMP IN THE RIGHT BREAST, UN 01/19/2017 EVERARDO HUNT MD Ot Z34.92 ENCNTR FOR SUPRVSN OF NORMAL PREG, UNSP, 01/19/2017 EVERARDO HUNT MD Ot Z3A.22 22 WEEKS GESTATION OF 02/27/2017 EVERARDO HUNT MD Ot R73.02 IMPAIRED GLUCOSE TOLERANCE (ORAL) 03/09/2017 EVERARDO HUNT MD Ot Z36.89 ENCOUNTER FOR OTHER SPECIFIED 03/09/2017 EVERARDO HUNT MD Ot Z3A.00 WEEKS OF GESTATION OF NOT SPEC 03/09/2017 EVERARDO HUNT MD Ot R73.02 IMPAIRED GLUCOSE TOLERANCE (ORAL) 03/28/2017 EVERARDO HUNT MD Ot Z34.83 ENCOUNTER FOR SUPRVSN OF NORMAL PREGNANC 03/28/2017 EVERARDO HUNT MD Ot Z3A.35 35 WEEKS GESTATION OF 03/28/2017 EVERARDO HUNT MD Ot Z34.83 ENCOUNTER FOR SUPRVSN OF NORMAL PREGNANC 03/28/2017 EVERARDO HUNT MD Ot Z3A.35 35 WEEKS GESTATION OF 03/29/2017 EVERARDO HUNT MD Ot Z34.83 ENCOUNTER FOR SUPRVSN OF NORMAL PREGNANC 03/29/2017 EVERARDO HUNT MD Ot Z3A.35 35 WEEKS GESTATION OF 03/29/2017 EVERARDO HUNT MD Ot Z34.83 ENCOUNTER FOR SUPRVSN OF NORMAL PREGNANC 03/29/2017 EVERARDO HUNT MD Ot Z3A.35 35 WEEKS GESTATION OF 04/04/2017 EVERARDO HUNT MD Ot Z34.93 ENCNTR FOR SUPRVSN OF NORMAL PREG, UNSP, 04/04/2017 EVERARDO HUNT MD Ot Z3A.35 35 WEEKS GESTATION OF 04/04/2017 EVERARDO HUNT MD Ot Z34.93 ENCNTR FOR SUPRVSN OF NORMAL PREG, UNSP, 04/04/2017 EVERARDO HUNT MD Ot Z3A.35 35 WEEKS GESTATION OF 04/06/2017 EVERARDO HUNT MD Ot Z34.93 ENCNTR FOR SUPRVSN OF NORMAL PREG, UNSP, 04/06/2017 EVERARDO HUNT MD Ot Z3A.35 35 WEEKS GESTATION OF 04/11/2017 EVERARDO HUNT MD Ot Z34.93 ENCNTR FOR SUPRVSN OF NORMAL PREG, UNSP, 04/11/2017 EVERARDO HUNT MD Ot Z3A.35 35 WEEKS GESTATION OF 04/11/2017 EVERARDO HUNT MD Ot Z34.93 ENCNTR FOR SUPRVSN OF NORMAL PREG, UNSP, 04/11/2017 EVERARDO HUNT MD Ot Z3A.35 35 WEEKS GESTATION OF 04/22/2017 EVERARDO HUNT MD, Ot E66.01 MORBID (SEVERE) OBESITY DUE TO EXCESS CA 04/22/2017 EVERARDO HUNT MD Ot O24.425 GESTATNL DIAB IN CHLDBRTH, CTRL BY ORAL 04/22/2017 EVERARDO HUNT MD Ot O69.81X0 LABOR AND DEL COMP BY CORD AROUND NECK, 04/22/2017 EVERARDO HUNT MD Ot O76 ABNLT IN HEART RATE AND RHYTHM COM 04/22/2017 EVERARDO HUNT MD Ot O99.214 OBESITY COMPLICATING CHILDBIRTH 04/22/2017 EVERARDO HUNT MD Ot Z23 ENCOUNTER FOR IMMUNIZATION 04/22/2017 EVERARDO HUNT MD Ot Z37.0 SINGLE LIVE 04/22/2017 EVERARDO HUNT MD, Ot Z3A.37 37 WEEKS GESTATION OF 04/22/2017 EVERARDO HUNT MD, Ot Z68.43 BODY MASS INDEX (BMI) 50-59.9 , ADULT 04/26/2017 EVERARDO HUNT MD Ot O24.410 GESTATIONAL DIABETES MELLITUS IN PREGNAN 04/26/2017 EVERARDO HUNT MD Ot Z3A.34 34 WEEKS GESTATION OF 06/26/2017 EVERARDO HUNT MD Ot O24.410 GESTATIONAL DIABETES MELLITUS IN PREGNAN 06/26/2017 EVERARDO HUNT MD Ot Z3A.34 34 WEEKS GESTATION OF 06/28/2017 EVERARDO HUNT MD Ot O24.410 GESTATIONAL DIABETES MELLITUS IN PREGNAN 06/28/2017 EVERARDO HUNT MD Ot Z3A.34 34 WEEKS GESTATION OF Procedures Code Description [place] [address] ROUTINE VENIPUNCTURE 01/08/2013 24841 CBC 01/09/2013 [id number] GFR CALC (RESULT ONLY) 01/09/2013 27975 CMP 01/09/2013 86341 TSH 01/09/2013 09734 PSYCH DIAG EVAL W/MED SRVCS 02/17/2013 78242 PSYCH DIAGNOSTIC EVALUATION 01/03/2014 [id number] INTRODUCE OF OTH THERAP SUBST INTO FEM R 04/19/2017 [id number] EXTRACTION OF POC, LOW CERVICAL, OPEN AP 04/20/2017 <section xmlns="urn:hl7-org:v3" xmlns:xsi="http:// www.[employer].org/2001/XMLSchema-instance"> <templateId root= "[email or web address]" /> <templateId root= "[email or web address]" /> <code codeSystemName="LOINC" codeSystem= "[id number]" code="43025-8" displayName="Results" /> <title>Results< /title> <text> <table> <thead> <tr> <th>Test</th> <th>Result</th> <th>Range</th> </tr> </thead> < tbody> <tr> <th colspan="10">CBC With Differential/Platelet - 12:35</th> </tr> <tr> <td>WBC</td> <td> 8.5 x10E3/uL</td> <td>3.4-10.8</td> </tr> <tr> < td>RBC</td> <td>4.82 x10E6/uL</td> <td>3.77-5.28</td> < /tr> <tr> <td>Hemoglobin</td> <td>13.2 g/dL</td> <td>11.1-15.9</td> </tr> <tr> <td>Hematocrit</td> <td>39.7 %</td> <td>34.0-46.6</td> </tr> <tr> <td>MCV</td> <td>82 fL</td> <td>79-97</td> </ tr> <tr> <td>MCH</td> <td>27.4 pg</td> <td> 26.6-33.0</td> </tr> <tr> <td>MCHC</td> <td> 33.2 g/dL</td> <td>31.5-35.7</td> </tr> <tr> <td >RDW</td> <td>13.8 %</td> <td>12.3-15.4</td> </tr> <tr> <td>Platelets</td> <td>305 x10E3/uL</td> <td>150-379</td> </tr> <tr> <td>Neutrophils</td> <td>64 %</td> <td /> </tr> <tr> <td> Lymphs</td> <td>24 %</td> <td /> </tr> <tr> <td>Monocytes</td> <td>9 %</td> <td /> </ tr> <tr> <td>Eos</td> <td>2 %</td> <td /> </tr> <tr> <td>Basos</td> <td>0 %</td> <td /> </tr> <tr> <td>Neutrophils (Absolute)</td> <td>5.5 x10E3/uL</td> <td>1.4-7.0</td> </tr> <tr > <td>Lymphs (Absolute)</td> <td>2.0 x10E3/uL</td> < td>0.7-3.1</td> </tr> <tr> <td>Monocytes(Absolute)</td> <td>0.8 x10E3/uL</td> <td>0.1-0.9</td> </tr> <tr > <td>Eos (Absolute)</td> <td>0.1 x10E3/uL</td> <td> 0.0-0.4</td> </tr> <tr> <td>Baso (Absolute)</td> <td>0.0 x10E3/uL</td> <td>0.0-0.2</td> </tr> <tr> <td>Immature Granulocytes</td> <td>1 %</td> <td /> </tr> <tr> <td>Immature Grans (Abs)</td> <td>0.0 x10E3/uL</td> <td>0.0-0.1</td> </tr> <tr> <th colspan="10">Comp. Metabolic Panel (14) - 01/15/16 12:35</th> </tr> <tr> <td>Glucose, Serum</td> <td>94 mg/dL</td> <td >65-99</td> </tr> <tr> <td>BUN</td> <td>12 mg/dL </td> <td>6-20</td> </tr> <tr> <td>Creatinine, Serum</td> <td>0.72 mg/dL</td> <td>0.57-1.00</td> </tr > <tr> <td>eGFR If NonAfricn Am</td> <td>117 mL/min/ 1.73</td> <td> >59</td> </tr> <tr> <td> eGFR If Africn Am</td> <td>135 mL/min/1.73</td> <td> >59 </td> </tr> <tr> <td>BUN/Creatinine Ratio</td> < td>17 </td> <td>8-20</td> </tr> <tr> <td>Sodium , Serum</td> <td>138 mmol/L</td> <td>136-144</td> </tr > <tr> <td>Potassium, Serum</td> <td>4.4 mmol/L</td> <td>3.5-5.2</td> </tr> <tr> <td>Chloride, Serum</ td> <td>99 mmol/L</td> <td>97-106</td> </tr> <tr > <td>Carbon Dioxide, Total</td> <td>21 mmol/L</td> < td>18-29</td> </tr> <tr> <td>Calcium, Serum</td> <td>8.9 mg/dL</td> <td>8.7-10.2</td> </tr> <tr> <td>Protein, Total, Serum</td> <td>6.9 g/dL</td> <td>6.0- 8.5</td> </tr> <tr> <td>Albumin, Serum</td> <td> 4.3 g/dL</td> <td>3.5-5.5</td> </tr> <tr> <td> Globulin, Total</td> <td>2.6 g/dL</td> <td>1.5-4.5</td> </tr> <tr> <td>A/G Ratio</td> <td>1.7 </td> <td>1.1-2.5</td> </tr> <tr> <td>Bilirubin, Total</td> <td>0.4 mg/dL</td> <td>0.0-1.2</td> </tr> <tr> <td>Alkaline Phosphatase, S</td> <td>53 IU/L</td> <td> 39-117</td> </tr> <tr> <td>AST (SGOT)</td> <td> 13 IU/L</td> <td>0-40</td> </tr> <tr> <td>ALT ( SGPT)</td> <td>15 IU/L</td> <td>0-32</td> </tr> <tr> < colspan="10">Lipid Panel - 01/15/16 12:35</th> </tr> <tr> <td>Cholesterol, Total</td> <td>203 mg/dL</td> <td>100-199</td> </tr> <tr> <td>Triglycerides</td> <td>73 mg/dL</td> <td>0-149</td> </tr> <tr> <td>HDL Cholesterol</td> <td>53 mg/dL</td> <td>>39</ td> </tr> <tr> <td>VLDL Cholesterol [place]</td> <td >15 mg/dL</td> <td>5-40</td> </tr> <tr> <td>LDL Cholesterol Calc</td> <td>135 mg/dL</td> <td>0-99</td> </tr> <tr> < colspan="10">Hemoglobin A1c - 01/15/16 12:35</th > </tr> <tr> <td>Hemoglobin A1c</td> <td>5.7 &# 37;</td> <td>4.8-5.6</td> </tr> <tr> < colspan ="10">Thyroid [place] Profile - 01/15/16 12:35</th> </tr> <tr> <td>TSH</td> <td>2.470 uIU/mL</td> <td>0.450-4.500</td > </tr> <tr> <th colspan="10">Genital Culture, Routine - 01/22/16 15:22</th> </tr> <tr> <td>Genital Culture, Routine</td> <td>Note </td> <td /> </tr> <tr> <th colspan="10">Anaerobic and Aerobic Culture - 03/29/16 10:29</th> </tr> <tr> <td>Anaerobic and Aerobic Culture</td> <td>Note </td> <td /> </tr> <tr> <th colspan="10 ">Gram stain microscopy - 09/24/16 14:56</th> </tr> <tr> <td>Gram stain microscopy</td> <td>Note, no aerobic growth 09/25/16 </td > <td>NRG</td> </tr> <tr> <th colspan="10"> Bacteria identification in wound by culture - 09/24/16 14:56</th> </tr> <tr> <td>Bacteria identification in wound by culture</td> <td>[id number] </td> <td>NRG</td> </tr> <tr> <td>FREE TEXT EXTERNAL</td> <td>ISOLATED FROM THIO BROTH </td> <td>NRG</td> </tr> <tr> <td>QUANTITY OF GROWTH</td> <td>. </td> <td>NRG</td> </tr> <tr> <td> FREE TEXT ENTRY 2</td> <td>ANAEROBIC CULTURE NOT ORDERED </td> <td>NRG</td> </tr> <tr> <th colspan="10">CULTURE, GENITAL - 09/27/16 16:14</th> </tr> <tr> <td>Genital Culture, Routine</td> <td>Final report </td> <td>NRG</td> </tr> <tr> <td>Result 1</td> <td> </td> < td>NRG</td> </tr> <tr> <th colspan="10">Urine Culture, Routine - 09/27/16 16:14</th> </tr> <tr> <td>Urine Culture, Routine</td> <td>Note </td> <td /> </tr> <tr> <th colspan="10">Genital Culture, Routine - 09/27/16 16:14</th > </tr> <tr> <td>Genital Culture, Routine</td> < td>Note </td> <td /> </tr> <tr> <th colspan="10 ">PDF Report - 09/27/16 17:59</th> </tr> <tr> <td>PDF Report1</td> <td>[facility] </td> <td>NRG</td> </tr> < tr> <th colspan="10">Pap Lb, rfx HPV ASCU - 09/27/16 17:59</th> </tr> <tr> <td>DIAGNOSIS:</td> <td>Comment </td> <td /> </tr> <tr> <td>Specimen adequacy:</td> <td>Comment </td> <td /> </tr> <tr> <td> Clinician provided ICD10:</td> <td>Comment </td> <td /> </tr> <tr> <td>Performed by:</td> <td>Comment </td> <td /> </tr> <tr> <td>.</td> <td>. </td > <td /> </tr> <tr> <td>Note:</td> <td> Comment </td> <td /> </tr> <tr> <td>.</td> <td>Comment </td> <td /> </tr> <tr> <th colspan="10">CBC With Differential/Platelet - 09/28/16 10:31</th> </tr> <tr> <td>WBC</td> <td>10.5 x10E3/uL</td> <td> 3.4-10.8</td> </tr> <tr> <td>RBC</td> <td>4.68 x10E6/uL</td> <td>3.77-5.28</td> </tr> <tr> <td> Hemoglobin</td> <td>12.2 g/dL</td> <td>11.1-15.9</td> < /tr> <tr> <td>Hematocrit</td> <td>37.8 %</td> <td>34.0-46.6</td> </tr> <tr> <td>MCV</td> <td>81 fL</td> <td>79-97</td> </tr> <tr> <td>MCH </td> <td>26.1 pg</td> <td>26.6-33.0</td> </tr> <tr> <td>MCHC</td> <td>32.3 g/dL</td> <td>31.5-35.7</ td> </tr> <tr> <td>RDW</td> <td>14.5 %</td> <td>12.3-15.4</td> </tr> <tr> <td>Platelets</td > <td>318 x10E3/uL</td> <td>150-379</td> </tr> < tr> <td>Neutrophils</td> <td>59 %</td> <td /> </tr> <tr> <td>Lymphs</td> <td>31 %</td> <td /> </tr> <tr> <td>Monocytes</td> <td>8 %</td> <td /> </tr> <tr> <td>Eos</td> <td>1 %</td> <td /> </tr> <tr> <td>Basos </td> <td>0 %</td> <td /> </tr> <tr> <td>Neutrophils (Absolute)</td> <td>6.2 x10E3/uL</td> <td> 1.4-7.0</td> </tr> <tr> <td>Lymphs (Absolute)</td> <td>3.2 x10E3/uL</td> <td>0.7-3.1</td> </tr> <tr> <td>Monocytes(Absolute)</td> <td>0.8 x10E3/uL</td> <td> 0.1-0.9</td> </tr> <tr> <td>Eos (Absolute)</td> <td>0.2 x10E3/uL</td> <td>0.0-0.4</td> </tr> <tr> <td>Baso (Absolute)</td> <td>0.0 x10E3/uL</td> <td>0.0-0.2< /td> </tr> <tr> <td>Immature Granulocytes</td> < td>1 %</td> <td /> </tr> <tr> <td>Immature Grans (Abs)</td> <td>0.1 x10E3/uL</td> <td>0.0-0.1</td> </tr> <tr> <th colspan="10">ABO Grouping and Rho(D) Typing - 09/28/16 10:31</th> </tr> <tr> <td>ABO Grouping</td> <td>O </td> <td /> </tr> <tr> <td>Rh Factor</td> <td>Positive </td> <td /> </tr> <tr > <th colspan="10">TSH - 09/28/16 10:31</th> </tr> <tr> <td>TSH </td> <td>4.340 uIU/mL</td> <td>0.450-4.500</td> </tr> <tr> <th colspan="10"> Rubella Antibodies, IgG - 09/28/16 10:31</th> </tr> <tr> <td>Rubella Antibodies, IgG</td> <td><0.90 index</td> <td> Immune >0.99</td> </tr> <tr> <th colspan="10"> Antibody Screen - 09/28/16 10:31</th> </tr> <tr> <td> Antibody Screen</td> <td>Negative </td> <td>Negative</td> </tr> <tr> <th colspan="10">RUBELLA ANTIBODIES, IgG - 10:31</th> </tr> <tr> <td>Rubella Antibodies, IgG</td > <td><0.90 index</td> <td>Immune >0.99</td> </tr > <tr> <th colspan="10">AFP Tetra - 11/22/16 15:04</th> < /tr> <tr> <td>Results</td> <td>Report </td> < td /> </tr> <tr> <td>Test Results:</td> <td>* Screen Negative* </td> <td /> </tr> <tr> <td> Gest. Age on Collection Date</td> <td>15.7 WEEKS</td> <td /> </tr> <tr> <td>Gestat. Age Based On</td> <td> Ultrasound </td> <td /> </tr> <tr> <td>Maternal Age At [place]</td> <td>27.0 YEARS</td> <td /> </tr> <tr> <td>Race</td> <td>Other </td> <td /> </ tr> <tr> <td>Weight</td> <td>293 lbs</td> <td /> </tr> <tr> <td>Insulin Dep Diabetes</td> <td> No </td> <td /> </tr> <tr> <td>Multiple Gestation</td> <td>No </td> <td /> </tr> <tr> <td>AFP Value</td> <td>15.0 ng/mL</td> <td /> < /tr> <tr> <td>AFP MoM</td> <td>0.71 </td> <td /> </tr> <tr> <td>hCG Value</td> <td>39674 mIU/ mL</td> <td /> </tr> <tr> <td>hCG MoM</td> <td>1.51 </td> <td /> </tr> <tr> <td>uE3 Value</td> <td>0.56 ng/mL</td> <td /> </tr> <tr > <td>uE3 MoM</td> <td>0.88 </td> <td /> </tr > <tr> <td>DAVID Value</td> <td>108.36 pg/mL</td> <td /> </tr> <tr> <td>DAVID MoM</td> <td>0.84 < /td> <td /> </tr> <tr> <td>OSBR Risk 1 IN< /td> <td>33178 </td> <td /> </tr> <tr> <td>DSR (Second Trimester) 1 IN</td> <td>2711 </td> <td /> </tr> <tr> <td>DSR (By Age) 1 IN</td> <td>924 < /td> <td /> </tr> <tr> <td>T18 Risk</td> <td>Not increased </td> <td /> </tr> <tr> <td >T18 (By Age)</td> <td>1:3600 </td> <td /> </tr> <tr> <td>Interpretation</td> <td>Comment </td> <td /> </tr> <tr> <td>PDF</td> <td>. </td> <td /> </tr> <tr> <td>Comments:</td> <td> Comment </td> <td /> </tr> <tr> <th colspan="10 ">PDF Report - 11/22/16 15:04</th> </tr> <tr> <td>PDF Report1</td> <td>LCLS </td> <td>NRG</td> </tr> < tr> <th colspan="10">Influenza virus A and B antigen detection - 23:24</th> </tr> <tr> <td>FLU RESULT</td> <td >NEGATIVE FOR INFLUENZA A AND B ANTIGENS BY IA </td> <td>NRG</td> </tr> <tr> <th colspan="10">WET PREP - 01/12/17 10:53</th> </tr> <tr> <td>EPITHELIAL</td> <td>MODERATE </td > <td /> </tr> <tr> <td>CLUE CELLS</td> <td>MODERATE </td> <td /> </tr> <tr> <td>WBC</ td> <td>MODERATE cells/hpf</td> <td /> </tr> <tr > <td>RBC</td> <td>RARE /HPF</td> <td /> </tr > <tr> <td>BACTERIA</td> <td>4+ </td> <td /> </tr> <tr> <td>YEAST</td> <td>NONE cells/hpf</td > <td /> </tr> <tr> <td>TRICHOMONA</td> <td>NONE </td> <td /> </tr> <tr> <td>SPERM</td > <td>NONE </td> <td /> </tr> <tr> <td> Laboratory</td> <td> </td> <td /> </tr> <tr> <th colspan="10">CHLAMYDIA/GC DNA PROBE PCR - 01/12/17 10:53</th> </tr> <tr> <td>CHLAMYD</td> <td>POSITIVE </td> <td>NEGATIVE</td> </tr> <tr> <td>GC</td> <td> NEGATIVE </td> <td>NEGATIVE</td> </tr> <tr> <td> Laboratory</td> <td> </td> <td /> </tr> <tr> <th colspan="10">CBC - 01/24/17 15:23</th> </tr> <tr> <td>WHITE BLOOD CELL COUNT</td> <td>12.2 Thousand/uL</td> <td>3.8-10.8</td> </tr> <tr> <td>RED BLOOD CELL COUNT</ td> <td>4.52 Million/uL</td> <td>3.80-5.10</td> </tr> <tr> <td>HEMOGLOBIN</td> <td>12.0 g/dL</td> < td>11.7-15.5</td> </tr> <tr> <td>HEMATOCRIT</td> <td>36.9 %</td> <td>35.0-45.0</td> </tr> <tr> <td>MCV</td> <td>81.6 fL</td> <td>80.0-100.0</td> </tr> <tr> <td>MCH</td> <td>26.5 pg</td> <td> 27.0-33.0</td> </tr> <tr> <td>MCHC</td> <td> 32.5 g/dL</td> <td>32.0-36.0</td> </tr> <tr> <td >RDW</td> <td>14.2 %</td> <td>11.0-15.0</td> </tr> <tr> <td>PLATELET COUNT</td> <td>250 Thousand/uL</td> <td>140-400</td> </tr> <tr> <td>MPV</td> <td>12.4 fL</td> <td>7.5-12.5</td> </tr> <tr> <td>ABSOLUTE NEUTROPHILS</td> <td>9260 cells/uL</td> <td> 3101-6013</td> </tr> <tr> <td>ABSOLUTE LYMPHOCYTES</td> <td>1854 cells/uL</td> <td>850-3900</td> </tr> < tr> <td>ABSOLUTE MONOCYTES</td> <td>903 cells/uL</td> <td>200-950</td> </tr> <tr> <td>ABSOLUTE EOSINOPHILS</ td> <td>159 cells/uL</td> <td>15-500</td> </tr> <tr> <td>ABSOLUTE BASOPHILS</td> <td>24 cells/uL</td> <td>0-200</td> </tr> <tr> <td>NEUTROPHILS</td> <td>75.9 %</td> <td>NRG</td> </tr> <tr> < td>LYMPHOCYTES</td> <td>15.2 %</td> <td>NRG</td> </ tr> <tr> <td>MONOCYTES</td> <td>7.4 %</td> <td>NRG</td> </tr> <tr> <td>EOSINOPHILS</td> < td>1.3 %</td> <td>NRG</td> </tr> <tr> <td> BASOPHILS</td> <td>0.2 %</td> <td>NRG</td> </tr> <tr> < colspan="10">Serum or plasma glucose measurement 3 hours post challenge (mass/volume) - 02/19/17 12:01</th> </tr> <tr > <td>Serum or plasma glucose measurement 3 hours post challenge (mass/ volume)</td> <td> </td> <td>NRG</td> </tr> <tr> <th colspan="10">CULTURE, CHLAMYDIA - 03/08/17 14:43</th> </tr > <tr> <td>SOURCE:</td> <td>CERVICAL </td> <td >NRG</td> </tr> <tr> <td>C. TRACHOMATIS CULTURE</td> <td>NOT ISOLATED </td> <td>NRG</td> </tr> <tr> < colspan="10">CULTURE, GROUP B STREP (VAGINAL) - 04/12/17 14:40</th> </tr> <tr> <td>STREPTOCOCCUS, GROUP B CULTURE</td> <td>SEE NOTE </td> <td>NRG</td> </tr> <tr> < colspan="10">Complete blood count (CBC) with automated white blood cell (WBC ) differential - 04/19/17 20:15</th> </tr> <tr> <td> Blood leukocytes automated count (number/volume)</td> <td>14.2 10*3/uL< /td> <td>4.3-11.0</td> </tr> <tr> <td>Blood erythrocytes automated count (number/volume)</td> <td>4.83 10*6/uL</td > <td>4.35-5.85</td> </tr> <tr> <td>Venous blood hemoglobin measurement (mass/volume)</td> <td>12.7 g/dL</td> <td>11.5-16.0</td> </tr> <tr> <td>Blood hematocrit (volume fraction)</td> <td>37 %</td> <td>35-52</td> </tr> <tr> <td>Automated erythrocyte mean corpuscular volume</ td> <td>77 [foz_us]</td> <td>80-99</td> </tr> < tr> <td>Automated erythrocyte mean corpuscular hemoglobin (mass per erythrocyte)</td> <td>26 pg</td> <td>25-34</td> </tr> <tr> <td>Automated erythrocyte mean corpuscular hemoglobin concentration measurement (mass/volume)</td> <td>34 g/dL</td> <td>32-36</td> </tr> <tr> <td>Automated erythrocyte distribution width ratio</td> <td>15.0 %</td> <td>10.0- 14.5</td> </tr> <tr> <td>Automated blood platelet count ( count/volume)</td> <td>263 10*3/uL</td> <td>130-400</td> </tr> <tr> <td>Automated blood platelet mean volume measurement</td> <td>12.4 [foz_us]</td> <td>7.4-10.4</td> </tr> <tr> <td>Automated blood neutrophils/100 leukocytes</ td> <td>75 %</td> <td>42-75</td> </tr> <tr> <td>Automated blood lymphocytes/100 leukocytes</td> <td>17 &# 37;</td> <td>12-44</td> </tr> <tr> <td>Blood monocytes/100 leukocytes</td> <td>8 %</td> <td>0-12</td> </tr> <tr> <td>Automated blood eosinophils/100 leukocytes </td> <td>1 %</td> <td>0-10</td> </tr> <tr> <td>Automated blood basophils/100 leukocytes</td> <td>0 % </td> <td>0-10</td> </tr> <tr> <td>Blood neutrophils automated count (number/volume)</td> <td>10.7 10*3</td> <td>1.8-7.8</td> </tr> <tr> <td>Blood lymphocytes automated count (number/volume)</td> <td>2.4 10*3</td> <td>1.0 -4.0</td> </tr> <tr> <td>Blood monocytes automated count (number/volume)</td> <td>1.1 10*3</td> <td>0.0-1.0</td> </tr> <tr> <td>Automated eosinophil count</td> <td> 0.1 10*3/uL</td> <td>0.0-0.3</td> </tr> <tr> <td >Automated blood basophil count (count/volume)</td> <td>0.0 10*3/uL</td > <td>0.0-0.1</td> </tr> <tr> <th colspan="10"> Blood manual differential performed detection - 04/19/17 20:15</th> </tr > <tr> <td>Blood monocytes/100 leukocytes</td> <td>6 &# 37;</td> <td>NRG</td> </tr> <tr> <td>Manual blood segmented neutrophils/100 leukocytes</td> <td>77 %</td> <td>NRG</td> </tr> <tr> <td>Blood band neutrophils/ 100 leukocytes</td> <td>0 %</td> <td>NRG</td> </tr > <tr> <td>Manual blood lymphocytes/100 leukocytes</td> <td>15 %</td> <td>NRG</td> </tr> <tr> <td> Manual eosinophils/100 leukocytes in nose</td> <td>1 %</td> <td>NRG</td> </tr> <tr> <td>Manual blood basophils/ 100 leukocytes</td> <td>1 %</td> <td>NRG</td> </tr > <tr> <td>Blood erythrocyte morphology finding identification</ td> <td>NORMAL </td> <td>NRG</td> </tr> <tr> <th colspan="10">Blood type T Indirect antibody screen panel - 04/19/17 20:15</th> </tr> <tr> <td>ABO+Rh group</td> <td> OP </td> <td>NRG</td> </tr> <tr> <td> Transfusion band number</td> <td>[id number] </td> <td>NRG</td> </tr> <tr> <td>Blood group antibody screen</td> < td>NEGATIVE </td> <td>NRG</td> </tr> <tr> < colspan="10">Comprehensive metabolic panel - 04/20/17 11:07</th> </tr> <tr> <td>Serum or plasma sodium measurement (moles/volume)</td> <td>136 mmol/L</td> <td>135-145</td> </tr> <tr> <td>Serum or plasma potassium measurement (moles/volume)</td> <td>3.7 mmol/L</td> <td>3.6-5.0</td> </tr> <tr> <td>Serum or plasma chloride measurement (moles/volume)</td> <td> 108 mmol/L</td> <td>98-107</td> </tr> <tr> <td> Carbon dioxide</td> <td>19 mmol/L</td> <td>21-32</td> < /tr> <tr> <td>Serum or plasma anion gap determination (moles/ volume)</td> <td>9 mmol/L</td> <td>5-14</td> </tr> <tr> <td>Serum or plasma urea nitrogen measurement (mass/volume)</ td> <td>9 mg/dL</td> <td>7-18</td> </tr> <tr> <td>Serum or plasma creatinine measurement (mass/volume)</td> < td>0.61 mg/dL</td> <td>0.60-1.30</td> </tr> <tr> <td>Serum or plasma urea nitrogen/creatinine mass ratio</td> <td>15 < /td> <td>NRG</td> </tr> <tr> <td>Serum or plasma creatinine measurement with calculation of estimated glomerular filtration rate</td> <td>> </td> <td>NRG</td> </tr> <tr> <td>Serum or plasma glucose measurement (mass/volume)</td > <td>136 mg/dL</td> <td>70-105</td> </tr> <tr> <td>Serum or plasma calcium measurement (mass/volume)</td> < td>8.6 mg/dL</td> <td>8.5-10.1</td> </tr> <tr> < td>Serum or plasma total bilirubin measurement (mass/volume)</td> <td> 0.2 mg/dL</td> <td>0.1-1.0</td> </tr> <tr> <td> Serum or plasma alkaline phosphatase measurement (enzymatic activity/volume)</td > <td>78 U/L</td> <td>40-136</td> </tr> <tr> <td>Serum or plasma aspartate aminotransferase measurement (enzymatic activity/volume)</td> <td>14 U/L</td> <td>5-34</td> </ tr> <tr> <td>Serum or plasma alanine aminotransferase measurement (enzymatic activity/volume)</td> <td>17 U/L</td> < td>0-55</td> </tr> <tr> <td>Serum or plasma protein measurement (mass/volume)</td> <td>6.2 g/dL</td> <td>6.4-8.2</ td> </tr> <tr> <td>Serum or plasma albumin measurement ( mass/volume)</td> <td>3.2 g/dL</td> <td>3.2-4.5</td> </ tr> <tr> <th colspan="10">Serum or plasma uric acid measurement (mass/volume) - 04/20/17 11:07</th> </tr> <tr> <td>Serum or plasma uric acid measurement (mass/volume)</td> <td>4.9 mg/dL</td> <td>2.6-7.2</td> </tr> <tr> < colspan="10"> Lactate dehydrogenase 1 [enzymatic activity/volume] in serum or plasma - 11:07</th> </tr> <tr> <td>Lactate dehydrogenase 1 [ enzymatic activity/volume] in serum or plasma</td> <td>127 U/L</td> <td>125-220</td> </tr> <tr> <th colspan="10"> Urine protein/creatinine mass ratio - 04/20/17 11:10</th> </tr> < tr> <td>Urine protein measurement (mass/volume)</td> <td>< mg/dL</td> <td>6-12</td> </tr> <tr> <td>Urine creatinine measurement (mass/volume)</td> <td>55 mg/dL</td> < td>30-125</td> </tr> <tr> <td>Urine protein/creatinine mass ratio</td> <td>TNP </td> <td>NRG</td> </tr> <tr> <th colspan="10">Complete blood count (CBC) with automated white blood cell (WBC) differential - 04/21/17 05:15</th> </tr> < tr> <td>Blood leukocytes automated count (number/volume)</td> <td>12.2 10*3/uL</td> <td>4.3-11.0</td> </tr> <tr> <td>Blood erythrocytes automated count (number/volume)</td> <td> 4.07 10*6/uL</td> <td>4.35-5.85</td> </tr> <tr> <td>Venous blood hemoglobin measurement (mass/volume)</td> <td>10.7 g/ dL</td> <td>11.5-16.0</td> </tr> <tr> <td>Blood hematocrit (volume fraction)</td> <td>32 %</td> <td>35-52< /td> </tr> <tr> <td>Automated erythrocyte mean corpuscular volume</td> <td>79 [foz_us]</td> <td>80-99</td> </tr> <tr> <td>Automated erythrocyte mean corpuscular hemoglobin (mass per erythrocyte)</td> <td>26 pg</td> <td>25- 34</td> </tr> <tr> <td>Automated erythrocyte mean corpuscular hemoglobin concentration measurement (mass/volume)</td> <td >33 g/dL</td> <td>32-36</td> </tr> <tr> <td> Automated erythrocyte distribution width ratio</td> <td>15.1 %</td > <td>10.0-14.5</td> </tr> <tr> <td>Automated blood platelet count (count/volume)</td> <td>193 10*3/uL</td> <td>130-400</td> </tr> <tr> <td>Automated blood platelet mean volume measurement</td> <td>11.7 [foz_us]</td> <td>7.4- 10.4</td> </tr> <tr> <td>Automated blood neutrophils/100 leukocytes</td> <td>74 %</td> <td>42-75</td> </tr> <tr> <td>Automated blood lymphocytes/100 leukocytes</td> <td>14 %</td> <td>12-44</td> </tr> <tr> <td>Blood monocytes/100 leukocytes</td> <td>12 %</td> <td> 0-12</td> </tr> <tr> <td>Automated blood eosinophils/100 leukocytes</td> <td>1 %</td> <td>0-10</td> </tr> <tr> <td>Automated blood basophils/100 leukocytes</td> < td>0 %</td> <td>0-10</td> </tr> <tr> <td> Blood neutrophils automated count (number/volume)</td> <td>9.0 10*3</td > <td>1.8-7.8</td> </tr> <tr> <td>Blood lymphocytes automated count (number/volume)</td> <td>1.7 10*3</td> <td>1.0-4.0</td> </tr> <tr> <td>Blood monocytes automated count (number/volume)</td> <td>1.4 10*3</td> <td>0.0 -1.0</td> </tr> <tr> <td>Automated eosinophil count</td> <td>0.1 10*3/uL</td> <td>0.0-0.3</td> </tr> <tr > <td>Automated blood basophil count (count/volume)</td> <td> 0.0 10*3/uL</td> <td>0.0-0.1</td> </tr> <tr> < colspan="10">PDM - AMPHETAMINES W/ REFLEX d/l ISOMERS - 08/10/17 11:10</th> </tr> <tr> <td>COMMENT</td> <td> </td> <td>NRG</td> </tr> <tr> <td>Amphetamine</td> <td >3146 ng/mL</td> <td><250</td> </tr> <tr> <td >medMATCH Amphetamine</td> <td>INCONSISTENT </td> <td>NRG</td > </tr> <tr> <td>Methamphetamine</td> <td> NEGATIVE ng/mL</td> <td><250</td> </tr> <tr> <td>medMATCH Methamphetamine</td> <td>CONSISTENT </td> <td>NRG </td> </tr> </tbody> </table> </text> <entry> <organizer moodCode="EVN" classCode="BATTERY"> <templateId root= "[id number]..22.4.1" /> <id nullFlavor="NA" /> <code codeSystem="local" code="859714" displayName="CBC With Differential/Platelet" / > <statusCode code="completed" /> <component> <observation moodCode="EVN" classCode="OBS"> <templateId root= "216.840.1.699800.10..22.4.2" /> <id nullFlavor="NA" /> < code codeSystem="local" code="467406" displayName="WBC" /> <statusCode code="completed" /> <effectiveTime value="" /> < value unit="x10E3/uL" xsi:type="PQ" value="8.5" /> <referenceRange> <observationRange> <text>3.4-10.8</text> </ observationRange> </referenceRange> </observation> </ component> <component> <observation moodCode="EVN" classCode="OBS"> <templateId root="[id number]...4.2" /> <id nullFlavor="NA" /> <code codeSystem="local" code="121350" displayName= "RBC" /> <statusCode code="completed" /> <effectiveTime value= "[id number]" /> <value unit="x10E6/uL" xsi:type="PQ" value="4.82" /> <referenceRange> <observationRange> <text>3.77 -5.28</text> </observationRange> </referenceRange> </ observation> </component> <component> <observation moodCode= "EVN" classCode="OBS"> <templateId root="[id number]..22.4.2 " /> <id nullFlavor="NA" /> <code codeSystem="local" code= "043398" displayName="Hemoglobin" /> <statusCode code="completed" /> <effectiveTime value="" /> <value unit="g/dL" xsi: type="PQ" value="13.2" /> <referenceRange> <observationRange > <text>11.1-15.9</text> </observationRange> </ referenceRange> </observation> </component> <component> <observation moodCode="EVN" classCode="OBS"> <templateId root= "216.840.1.801493.10...4.2" /> <id nullFlavor="NA" /> < code codeSystem="local" code="048634" displayName="Hematocrit" /> < statusCode code="completed" /> <effectiveTime value="" /> <value unit="%" xsi:type="PQ" value="39.7" /> < referenceRange> <observationRange> <text>34.0-46.6</text > </observationRange> </referenceRange> </observation > </component> <component> <observation moodCode="EVN" classCode="OBS"> <templateId root="16.840.1.481415.10..22.4.2" /> <id nullFlavor="NA" /> <code codeSystem="local" code="058739" displayName="MCV" /> <statusCode code="completed" /> < effectiveTime value="[id number]" /> <value unit="fL" xsi:type="PQ" value="82" /> <referenceRange> <observationRange> <text>79-97</text> </observationRange> </referenceRange > </observation> </component> <component> <observation moodCode="EVN" classCode="OBS"> <templateId root= "[id number].2" /> <id nullFlavor="NA" /> < code codeSystem="local" code="466988" displayName="[facility]" /> <statusCode code="completed" /> <effectiveTime value="" /> < value unit="pg" xsi:type="PQ" value="27.4" /> <referenceRange> <observationRange> <text>26.6-33.0</text> </ observationRange> </referenceRange> </observation> </ component> <component> <observation moodCode="EVN" classCode="OBS"> <templateId root="03.31.840.1.201611.12.02.21.4.2" /> <id nullFlavor="NA" /> <code codeSystem="local" code="974100" displayName= "[facility]" /> <statusCode code="completed" /> <effectiveTime value ="" /> <value unit="g/dL" xsi:type="PQ" value="33.2" /> <referenceRange> <observationRange> <text>31.5- 35.7</text> </observationRange> </referenceRange> </ observation> </component> <component> <observation moodCode= "EVN" classCode="OBS"> <templateId root="03.31.840.1.633199.10.22.4.2 " /> <id nullFlavor="NA" /> <code codeSystem="local" code= "274018" displayName="RDW" /> <statusCode code="completed" /> <effectiveTime value="" /> <value unit="%" xsi:type="PQ " value="13.8" /> <referenceRange> <observationRange> <text>12.3-15.4</text> </observationRange> </ referenceRange> </observation> </component> <component> <observation moodCode="EVN" classCode="OBS"> <templateId root= "216.840.1.161565.10.20.22.4.2" /> <id nullFlavor="NA" /> < code codeSystem="local" code="628715" displayName="Platelets" /> < statusCode code="completed" /> <effectiveTime value="" /> <value unit="x10E3/uL" xsi:type="PQ" value="305" /> < referenceRange> <observationRange> <text>150-379</text> </observationRange> </referenceRange> </observation > </component> <component> <observation moodCode="EVN" classCode="OBS"> <templateId root="03.31.840.1.157864.10.22.4.2" /> <id nullFlavor="NA" /> <code codeSystem="local" code="923973" displayName="Neutrophils" /> <statusCode code="completed" /> < effectiveTime value="[id number]" /> <value unit="%" xsi:type="PQ " value="64" /> <referenceRange> <observationRange> <text /> </observationRange> </referenceRange> </observation> </component> <component> <observation moodCode= "EVN" classCode="OBS"> <templateId root="03.31.840.1.293865.10.2022.4.2 " /> <id nullFlavor="NA" /> <code codeSystem="local" code= "729494" displayName="Lymphs" /> <statusCode code="completed" /> <effectiveTime value="" /> <value unit="%" xsi:type ="PQ" value="24" /> <referenceRange> <observationRange> <text /> </observationRange> </referenceRange> </observation> </component> <component> <observation moodCode="EVN" classCode="OBS"> <templateId root= "16.840.1.419284.1022.4.2" /> <id nullFlavor="NA" /> < code codeSystem="local" code="582013" displayName="Monocytes" /> < statusCode code="completed" /> <effectiveTime value="" /> <value unit="%" xsi:type="PQ" value="9" /> <referenceRange > <observationRange> <text /> </ observationRange> </referenceRange> </observation> </ component> <component> <observation moodCode="EVN" classCode="OBS"> <templateId root="03.31.840.1.754159.1022.4.2" /> <id nullFlavor="NA" /> <code codeSystem="local" code="480664" displayName= "Eos" /> <statusCode code="completed" /> <effectiveTime value= "" /> <value unit="%" xsi:type="PQ" value="2" /> <referenceRange> <observationRange> <text /> </observationRange> </referenceRange> </observation> < /component> <component> <observation moodCode="EVN" classCode="OBS" > <templateId root="03.31.840.1.236766.102022.4.2" /> <id nullFlavor="NA" /> <code codeSystem="local" code="252378" displayName= "Basos" /> <statusCode code="completed" /> <effectiveTime value="" /> <value unit="%" xsi:type="PQ" value="0" /> <referenceRange> <observationRange> <text /> </observationRange> </referenceRange> </observation> </component> <component> <observation moodCode="EVN" classCode ="OBS"> <templateId root="216.840.1.408993.10..22.4.2" /> < id nullFlavor="NA" /> <code codeSystem="local" code="260882" displayName="Neutrophils (Absolute)" /> <statusCode code="completed" / > <effectiveTime value="" /> <value unit="x10E3/uL " xsi:type="PQ" value="5.5" /> <referenceRange> < observationRange> <text>1.4-7.0</text> </ observationRange> </referenceRange> </observation> </ component> <component> <observation moodCode="EVN" classCode="OBS"> <templateId root="216.840.1.340978.10.22.4.2" /> <id nullFlavor="NA" /> <code codeSystem="local" code="760886" displayName= "Lymphs (Absolute)" /> <statusCode code="completed" /> < effectiveTime value="" /> <value unit="x10E3/uL" xsi:type= "PQ" value="2.0" /> <referenceRange> <observationRange> <text>0.7-3.1</text> </observationRange> </ referenceRange> </observation> </component> <component> <observation moodCode="EVN" classCode="OBS"> <templateId root= "216.840.1.175445.10.2022.4.2" /> <id nullFlavor="NA" /> < code codeSystem="local" code="086739" displayName="Monocytes(Absolute)" /> <statusCode code="completed" /> <effectiveTime value=" " /> <value unit="x10E3/uL" xsi:type="PQ" value="0.8" /> < referenceRange> <observationRange> <text>0.1-0.9</text> </observationRange> </referenceRange> </observation > </component> <component> <observation moodCode="EVN" classCode="OBS"> <templateId root="2.16.840.1.744344.10...4.2" /> <id nullFlavor="NA" /> <code codeSystem="local" code="289672" displayName="Eos (Absolute)" /> <statusCode code="completed" /> <effectiveTime value="" /> <value unit="x10E3/uL" xsi: type="PQ" value="0.1" /> <referenceRange> <observationRange > <text>0.0-0.4</text> </observationRange> </ referenceRange> </observation> </component> <component> <observation moodCode="EVN" classCode="OBS"> <templateId root= "2.16.840.1.384018....4.2" /> <id nullFlavor="NA" /> < code codeSystem="local" code="794697" displayName="Baso (Absolute)" /> <statusCode code="completed" /> <effectiveTime value="" /> <value unit="x10E3/uL" xsi:type="PQ" value="0.0" /> < referenceRange> <observationRange> <text>0.0-0.2</text> </observationRange> </referenceRange> </observation > </component> <component> <observation moodCode="EVN" classCode="OBS"> <templateId root="216.840.1.208553.10..4.2" /> <id nullFlavor="NA" /> <code codeSystem="local" code="716453" displayName="Immature Granulocytes" /> <statusCode code="completed" /> <effectiveTime value="[id number]" /> <value unit="%" xsi:type="PQ" value="1" /> <referenceRange> < observationRange> <text /> </observationRange> </referenceRange> </observation> </component> <component> <observation moodCode="EVN" classCode="OBS"> <templateId root= "216.840.1.941037.10..4.2" /> <id nullFlavor="NA" /> < code codeSystem="local" code="305244" displayName="Immature Grans (Abs)" /> <statusCode code="completed" /> <effectiveTime value= "[id number]" /> <value unit="x10E3/uL" xsi:type="PQ" value="0.0" /> <referenceRange> <observationRange> <text>0.0- 0.1</text> </observationRange> </referenceRange> </ observation> </component> </organizer> </entry> <entry> <organizer moodCode="EVN" classCode="BATTERY"> <templateId root= "216.840.1.393217.10..4.1" /> <id nullFlavor="NA" /> <code codeSystem="local" code="330490" displayName="Comp. Metabolic Panel (14)" /> <statusCode code="completed" /> <component> <observation moodCode ="EVN" classCode="OBS"> <templateId root= "216.840.1.871528.10..22.4.2" /> <id nullFlavor="NA" /> < code codeSystem="local" code="092548" displayName="Glucose, Serum" /> < statusCode code="completed" /> <effectiveTime value="[id number]" /> <value unit="mg/dL" xsi:type="PQ" value="94" /> < referenceRange> <observationRange> <text>65-99</text> </observationRange> </referenceRange> </observation> </component> <component> <observation moodCode="EVN" classCode= "OBS"> <templateId root="216.840.1.852484.10..4.2" /> < id nullFlavor="NA" /> <code codeSystem="local" code="603612" displayName="BUN" /> <statusCode code="completed" /> < effectiveTime value="[id number]" /> <value unit="mg/dL" xsi:type="PQ " value="12" /> <referenceRange> <observationRange> <text>6-20</text> </observationRange> </referenceRange > </observation> </component> <component> <observation moodCode="EVN" classCode="OBS"> <templateId root= "16.840.1.516869.10..4.2" /> <id nullFlavor="NA" /> < code codeSystem="local" code="359876" displayName="Creatinine, Serum" /> <statusCode code="completed" /> <effectiveTime value="236459072534" /> <value unit="mg/dL" xsi:type="PQ" value="0.72" /> < referenceRange> <observationRange> <text>0.57-1.00</text > </observationRange> </referenceRange> </observation > </component> <component> <observation moodCode="EVN" classCode="OBS"> <templateId root="216.840.1.503799.10..4.2" /> <id nullFlavor="NA" /> <code codeSystem="local" code="547288" displayName="eGFR If NonAfricn Am" /> <statusCode code="completed" /> <effectiveTime value="[id number]" /> <value unit="mL/min/ 1.73" xsi:type="PQ" value="117" /> <referenceRange> < observationRange> <text> >59</text> </ observationRange> </referenceRange> </observation> </ component> <component> <observation moodCode="EVN" classCode="OBS"> <templateId root="216.840.1.832665.12.02.21.4.2" /> <id nullFlavor="NA" /> <code codeSystem="local" code="854258" displayName= "eGFR If Africn Am" /> <statusCode code="completed" /> < effectiveTime value="[id number]" /> <value unit="mL/min/1.73" xsi: type="PQ" value="135" /> <referenceRange> <observationRange > <text> >59</text> </observationRange> < /referenceRange> </observation> </component> <component> <observation moodCode="EVN" classCode="OBS"> <templateId root= "216.840.1.124179.10.4.2" /> <id nullFlavor="NA" /> < code codeSystem="local" code="809520" displayName="BUN/Creatinine Ratio" /> <statusCode code="completed" /> <effectiveTime value= "616081037592" /> <value unit="" xsi:type="PQ" value="17" /> < referenceRange> <observationRange> <text>8-20</text> </observationRange> </referenceRange> </observation> </component> <component> <observation moodCode="EVN" classCode= "OBS"> <templateId root="216.840.1.076664.10.20.22.4.2" /> < id nullFlavor="NA" /> <code codeSystem="local" code="484694" displayName="Sodium, Serum" /> <statusCode code="completed" /> <effectiveTime value="193026910847" /> <value unit="mmol/L" xsi:type= "PQ" value="138" /> <referenceRange> <observationRange> <text>136-144</text> </observationRange> </ referenceRange> </observation> </component> <component> <observation moodCode="EVN" classCode="OBS"> <templateId root= "03.31.840.1.346022.10.20.22.4.2" /> <id nullFlavor="NA" /> < code codeSystem="local" code="977822" displayName="Potassium, Serum" /> <statusCode code="completed" /> <effectiveTime value="620964313518" / > <value unit="mmol/L" xsi:type="PQ" value="4.4" /> < referenceRange> <observationRange> <text>3.5-5.2</text> </observationRange> </referenceRange> </observation > </component> <component> <observation moodCode="EVN" classCode="OBS"> <templateId root="03.31.840.1.904223.10.20.22.4.2" /> <id nullFlavor="NA" /> <code codeSystem="local" code="134205" displayName="Chloride, Serum" /> <statusCode code="completed" /> <effectiveTime value="405761209030" /> <value unit="mmol/L" xsi: type="PQ" value="99" /> <referenceRange> <observationRange> <text>97-106</text> </observationRange> </ referenceRange> </observation> </component> <component> <observation moodCode="EVN" classCode="OBS"> <templateId root= "16.840.1.909252.10.22.4.2" /> <id nullFlavor="NA" /> < code codeSystem="local" code="345606" displayName="Carbon Dioxide, Total" /> <statusCode code="completed" /> <effectiveTime value= "059680276649" /> <value unit="mmol/L" xsi:type="PQ" value="21" /> <referenceRange> <observationRange> <text>18-29</ text> </observationRange> </referenceRange> </ observation> </component> <component> <observation moodCode= "EVN" classCode="OBS"> <templateId root="03.31.840.1.840346.10.22.4.2 " /> <id nullFlavor="NA" /> <code codeSystem="local" code= "333650" displayName="Calcium, Serum" /> <statusCode code="completed" / > <effectiveTime value="837522000717" /> <value unit="mg/dL" xsi:type="PQ" value="8.9" /> <referenceRange> < observationRange> <text>8.7-10.2</text> </ observationRange> </referenceRange> </observation> </ component> <component> <observation moodCode="EVN" classCode="OBS"> <templateId root="03.31.840.1.204471.12.02.21.4.2" /> <id nullFlavor="NA" /> <code codeSystem="local" code="011853" displayName= "Protein, Total, Serum" /> <statusCode code="completed" /> < effectiveTime value="009079270980" /> <value unit="g/dL" xsi:type="PQ" value="6.9" /> <referenceRange> <observationRange> <text>6.0-8.5</text> </observationRange> </ referenceRange> </observation> </component> <component> <observation moodCode="EVN" classCode="OBS"> <templateId root= "2.16.840.1.162594.12.02.21.4.2" /> <id nullFlavor="NA" /> < code codeSystem="local" code="611677" displayName="Albumin, Serum" /> < statusCode code="completed" /> <effectiveTime value="157349280781" /> <value unit="g/dL" xsi:type="PQ" value="4.3" /> < referenceRange> <observationRange> <text>3.5-5.5</text> </observationRange> </referenceRange> </observation > </component> <component> <observation moodCode="EVN" classCode="OBS"> <templateId root="2.16.840.1.046570.12.02.21.4.2" /> <id nullFlavor="NA" /> <code codeSystem="local" code="906282" displayName="Globulin, Total" /> <statusCode code="completed" /> <effectiveTime value="" /> <value unit="g/dL" xsi:type= "PQ" value="2.6" /> <referenceRange> <observationRange> <text>1.5-4.5</text> </observationRange> </ referenceRange> </observation> </component> <component> <observation moodCode="EVN" classCode="OBS"> <templateId root= "216.840.1.237602.22.4.2" /> <id nullFlavor="NA" /> < code codeSystem="local" code="232850" displayName="A/G Ratio" /> < statusCode code="completed" /> <effectiveTime value="" /> <value unit="" xsi:type="PQ" value="1.7" /> <referenceRange> <observationRange> <text>1.1-2.5</text> </ observationRange> </referenceRange> </observation> </ component> <component> <observation moodCode="EVN" classCode="OBS"> <templateId root="03.31.840.1.377924.12.02.21.4.2" /> <id nullFlavor="NA" /> <code codeSystem="local" code="787673" displayName= "Bilirubin, Total" /> <statusCode code="completed" /> < effectiveTime value="" /> <value unit="mg/dL" xsi:type="PQ " value="0.4" /> <referenceRange> <observationRange> <text>0.0-1.2</text> </observationRange> </ referenceRange> </observation> </component> <component> <observation moodCode="EVN" classCode="OBS"> <templateId root= "16.840.1.553819.22.4.2" /> <id nullFlavor="NA" /> < code codeSystem="local" code="747334" displayName="Alkaline Phosphatase, S" /> <statusCode code="completed" /> <effectiveTime value= "" /> <value unit="IU/L" xsi:type="PQ" value="53" /> <referenceRange> <observationRange> <text>39-117</ text> </observationRange> </referenceRange> </ observation> </component> <component> <observation moodCode= "EVN" classCode="OBS"> <templateId root="216.840.1.879599.10.20.22.4.2 " /> <id nullFlavor="NA" /> <code codeSystem="local" code= "816088" displayName="AST (SGOT)" /> <statusCode code="completed" /> <effectiveTime value="493747357604" /> <value unit="IU/L" xsi: type="PQ" value="13" /> <referenceRange> <observationRange> <text>0-40</text> </observationRange> </ referenceRange> </observation> </component> <component> <observation moodCode="EVN" classCode="OBS"> <templateId root= "03.31.840.1.098838.10..22.4.2" /> <id nullFlavor="NA" /> < code codeSystem="local" code="029462" displayName="ALT (SGPT)" /> < statusCode code="completed" /> <effectiveTime value="235885924372" /> <value unit="IU/L" xsi:type="PQ" value="15" /> <referenceRange > <observationRange> <text>0-32</text> </ observationRange> </referenceRange> </observation> </ component> </organizer> </entry> <entry> <organizer moodCode="EVN" classCode="BATTERY"> <templateId root="216.840.1.996669.10.20.22.4.1" /> <id nullFlavor="NA" /> <code codeSystem="local" code="691926" displayName="Lipid Panel" /> <statusCode code="completed" /> < component> <observation moodCode="EVN" classCode="OBS"> < templateId root="216.840.1.524522.10.22.4.2" /> <id nullFlavor="NA " /> <code codeSystem="local" code="134936" displayName="Cholesterol, Total" /> <statusCode code="completed" /> <effectiveTime value ="932858212013" /> <value unit="mg/dL" xsi:type="PQ" value="203" /> <interpretationCode codeSystem="local" code="H" /> < referenceRange> <observationRange> <text>100-199</text> </observationRange> </referenceRange> </observation > </component> <component> <observation moodCode="EVN" classCode="OBS"> <templateId root="03.31.840.1.170278.10.4.2" /> <id nullFlavor="NA" /> <code codeSystem="local" code="339454" displayName="Triglycerides" /> <statusCode code="completed" /> <effectiveTime value="401412447734" /> <value unit="mg/dL" xsi:type= "PQ" value="73" /> <referenceRange> <observationRange> <text>0-149</text> </observationRange> </ referenceRange> </observation> </component> <component> <observation moodCode="EVN" classCode="OBS"> <templateId root= "03.31.840.1.384252.10.22.4.2" /> <id nullFlavor="NA" /> < code codeSystem="local" code="220305" displayName="HDL Cholesterol" /> <statusCode code="completed" /> <effectiveTime value="537223529908" /> <value unit="mg/dL" xsi:type="PQ" value="53" /> < referenceRange> <observationRange> <text>>39</text> </observationRange> </referenceRange> </observation> </component> <component> <observation moodCode="EVN" classCode ="OBS"> <templateId root="2.16.840.1.186400.10..22.4.2" /> < id nullFlavor="NA" /> <code codeSystem="local" code="795331" displayName="VLDL Cholesterol [place]" /> <statusCode code="completed" /> <effectiveTime value="808482918943" /> <value unit="mg/dL" xsi :type="PQ" value="15" /> <referenceRange> <observationRange > <text>5-40</text> </observationRange> </ referenceRange> </observation> </component> <component> <observation moodCode="EVN" classCode="OBS"> <templateId root= "2.16.840.1.081274.10...4.2" /> <id nullFlavor="NA" /> < code codeSystem="local" code="825757" displayName="LDL Cholesterol Calc" /> <statusCode code="completed" /> <effectiveTime value= "226317846360" /> <value unit="mg/dL" xsi:type="PQ" value="135" /> <interpretationCode codeSystem="local" code="H" /> < referenceRange> <observationRange> <text>0-99</text> </observationRange> </referenceRange> </observation> </component> </organizer> </entry> <entry> <organizer moodCode="EVN " classCode="BATTERY"> <templateId root="2.16.840.1.792185.12.02.21.4.1" / > <id nullFlavor="NA" /> <code codeSystem="local" code="327309" displayName="Hemoglobin A1c" /> <statusCode code="completed" /> < component> <observation moodCode="EVN" classCode="OBS"> < templateId root="840.1.628182.10.4.2" /> <id nullFlavor="NA " /> <code codeSystem="local" code="885781" displayName="Hemoglobin A1c " /> <statusCode code="completed" /> <effectiveTime value= "862453566967" /> <value unit="%" xsi:type="PQ" value="5.7" /> <interpretationCode codeSystem="local" code="H" /> < referenceRange> <observationRange> <text>4.8-5.6</text> </observationRange> </referenceRange> </observation > </component> </organizer> </entry> <entry> <organizer moodCode= "EVN" classCode="BATTERY"> <templateId root="840.1.199100.12.02.21.4.1 " /> <id nullFlavor="NA" /> <code codeSystem="local" code="570036" displayName="Thyroid [place] Profile" /> <statusCode code="completed" /> <component> <observation moodCode="EVN" classCode="OBS"> < templateId root="840.1.948052.12.02.21.4.2" /> <id nullFlavor="NA " /> <code codeSystem="local" code="801548" displayName="TSH" /> <statusCode code="completed" /> <effectiveTime value="074402405506 " /> <value unit="uIU/mL" xsi:type="PQ" value="2.470" /> < referenceRange> <observationRange> <text>0.450-4.500</ text> </observationRange> </referenceRange> </ observation> </component> </organizer> </entry> <entry> <organizer moodCode="EVN" classCode="BATTERY"> <templateId root= "840.1.824660.10..22.4.1" /> <id nullFlavor="NA" /> <code codeSystem="local" code="893859" displayName="Genital Culture, Routine" /> <statusCode code="completed" /> <component> <observation moodCode= "EVN" classCode="OBS"> <templateId root="840.1.426788.10..4.2 " /> <id nullFlavor="NA" /> <code codeSystem="local" code= "096945" displayName="Genital Culture, Routine" /> <statusCode code= "completed" /> <effectiveTime value="605224143025" /> <value unit="" xsi:type="PQ" value="Note" /> <referenceRange> < observationRange> <text /> </observationRange> </referenceRange> </observation> </component> </organizer> </ entry> <entry> <organizer moodCode="EVN" classCode="BATTERY"> < templateId root="840.1.436861.10...4.1" /> <id nullFlavor="NA" /> <code codeSystem="local" code="054367" displayName="Anaerobic and Aerobic Culture" /> <statusCode code="completed" /> <component> < observation moodCode="EVN" classCode="OBS"> <templateId root= "03.31.840.1.875480.10..22.4.2" /> <id nullFlavor="NA" /> < code codeSystem="local" code="452978" displayName="Anaerobic and Aerobic Culture " /> <statusCode code="completed" /> <effectiveTime value= "733013577525" /> <value unit="" xsi:type="PQ" value="Note" /> <referenceRange> <observationRange> <text /> </observationRange> </referenceRange> </observation> </ component> </organizer> </entry> <entry> <organizer moodCode="EVN" classCode="BATTERY"> <templateId root="216.840.1.313213.10.20.22.4.1" /> <id nullFlavor="NA" /> <code codeSystem="local" code="664-3" displayName="Gram stain microscopy" /> <statusCode code="completed" /> <component> <observation moodCode="EVN" classCode="OBS"> < templateId root="216.840.1.371196.10.20.22.4.2" /> <id nullFlavor="NA " /> <code codeSystem="local" code="664-3" displayName="Gram stain microscopy" /> <statusCode code="completed" /> <effectiveTime value="731340456280" /> <value unit="" xsi:type="PQ" value="Note, no aerobic growth 09/25/16" /> <referenceRange> < observationRange> <text>NRG</text> </observationRange> </referenceRange> </observation> </component> </ organizer> </entry> <entry> <organizer moodCode="EVN" classCode="BATTERY"> <templateId root="216.840.1.073976.10.20.22.4.1" /> <id nullFlavor= "NA" /> <code codeSystem="local" code="6462-6" displayName="Bacteria identification in wound by culture" /> <statusCode code="completed" /> <component> <observation moodCode="EVN" classCode="OBS"> < templateId root="16.840.1.961062.10.4.2" /> <id nullFlavor="NA " /> <code codeSystem="local" code="6462-6" displayName="Bacteria identification in wound by culture" /> <statusCode code="completed" /> <effectiveTime value="881272165074" /> <value unit="" xsi: type="PQ" value="819686928" /> <referenceRange> < observationRange> <text>NRG</text> </observationRange> </referenceRange> </observation> </component> < component> <observation moodCode="EVN" classCode="OBS"> < templateId root="03.31.840.1.033893.10.4.2" /> <id nullFlavor="NA " /> <code codeSystem="local" code="FTEXTERNAL" displayName="FREE TEXT EXTERNAL" /> <statusCode code="completed" /> <effectiveTime value="339937583487" /> <value unit="" xsi:type="PQ" value="ISOLATED FROM THIO BROTH" /> <referenceRange> <observationRange> <text>NRG</text> </observationRange> </ referenceRange> </observation> </component> <component> <observation moodCode="EVN" classCode="OBS"> <templateId root= "16.840.1.426644.10.22.4.2" /> <id nullFlavor="NA" /> < code codeSystem="local" code="G" displayName="QUANTITY OF GROWTH" /> < statusCode code="completed" /> <effectiveTime value="144942347430" /> <value unit="" xsi:type="PQ" value="." /> <referenceRange> <observationRange> <text>NRG</text> </ observationRange> </referenceRange> </observation> </ component> <component> <observation moodCode="EVN" classCode="OBS"> <templateId root="16.840.1.979469.10.2022.4.2" /> <id nullFlavor="NA" /> <code codeSystem="local" code="FTX2" displayName= "FREE TEXT ENTRY 2" /> <statusCode code="completed" /> < effectiveTime value="599787678309" /> <value unit="" xsi:type="PQ" value="ANAEROBIC CULTURE NOT ORDERED" /> <referenceRange> < observationRange> <text>NRG</text> </observationRange> </referenceRange> </observation> </component> </ organizer> </entry> <entry> <organizer moodCode="EVN" classCode="BATTERY"> <templateId root="03.31.840.1.953684.10..22.4.1" /> <id nullFlavor= "NA" /> <code codeSystem="local" code="CULTURE, GENITAL" displayName= "CULTURE, GENITAL" /> <statusCode code="completed" /> <component> <observation moodCode="EVN" classCode="OBS"> <templateId root= "03.31.840.1.843094.10.2022.4.2" /> <id nullFlavor="NA" /> < code codeSystem="local" code="631670" displayName="Genital Culture, Routine" /> <statusCode code="completed" /> <effectiveTime value= "524976743713" /> <value unit="" xsi:type="PQ" value="Final report" /> <referenceRange> <observationRange> <text>NRG< /text> </observationRange> </referenceRange> </ observation> </component> <component> <observation moodCode= "EVN" classCode="OBS"> <templateId root="216.840.1.385679.10..22.4.2 " /> <id nullFlavor="NA" /> <code codeSystem="local" code= "059697" displayName="Result 1" /> <statusCode code="completed" /> <effectiveTime value="863433002597" /> <value unit="" xsi:type= "PQ" value="" /> <referenceRange> <observationRange> <text>NRG</text> </observationRange> </referenceRange > </observation> </component> </organizer> </entry> <entry> <organizer moodCode="EVN" classCode="BATTERY"> <templateId root= "2.16.840.1.768415.10..22.4.1" /> <id nullFlavor="NA" /> <code codeSystem="local" code="417208" displayName="Urine Culture, Routine" /> < statusCode code="completed" /> <component> <observation moodCode= "EVN" classCode="OBS"> <templateId root="2.16.840.1.227116.10.20.22.4.2 " /> <id nullFlavor="NA" /> <code codeSystem="local" code= "113174" displayName="Urine Culture, Routine" /> <statusCode code= "completed" /> <effectiveTime value="203881737957" /> <value unit="" xsi:type="PQ" value="Note" /> <referenceRange> < observationRange> <text /> </observationRange> </referenceRange> </observation> </component> </organizer> </ entry> <entry> <organizer moodCode="EVN" classCode="BATTERY"> < templateId root="16.840.1.405364.10..22.4.1" /> <id nullFlavor="NA" /> <code codeSystem="local" code="276141" displayName="Genital Culture, Routine" /> <statusCode code="completed" /> <component> < observation moodCode="EVN" classCode="OBS"> <templateId root= "03.31.840.1.496319.12.02.21.4.2" /> <id nullFlavor="NA" /> < code codeSystem="local" code="904161" displayName="Genital Culture, Routine" /> <statusCode code="completed" /> <effectiveTime value= "000357738788" /> <value unit="" xsi:type="PQ" value="Note" /> <referenceRange> <observationRange> <text /> </observationRange> </referenceRange> </observation> </ component> </organizer> </entry> <entry> <organizer moodCode="EVN" classCode="BATTERY"> <templateId root="03.31.840.1.251591.12.02.21.4.1" /> <id nullFlavor="NA" /> <code codeSystem="local" code="CumulativePDF" displayName="PDF Report" /> <statusCode code="completed" /> <component > <observation moodCode="EVN" classCode="OBS"> <templateId root= "03.31.840.1.775853.10..22.4.2" /> <id nullFlavor="NA" /> < code codeSystem="local" code="CumulativePDF" displayName="PDF Report1" /> <statusCode code="completed" /> <effectiveTime value="180760426236 " /> <value unit="" xsi:type="PQ" value="LCLS" /> < referenceRange> <observationRange> <text>NRG</text> </observationRange> </referenceRange> </observation> </component> </organizer> </entry> <entry> <organizer moodCode="EVN" classCode="BATTERY"> <templateId root="03.31.840.1.256369.10..22.4.1" /> <id nullFlavor="NA" /> <code codeSystem="local" code="513545" displayName="Pap Lb, rfx HPV ASCU" /> <statusCode code="completed" /> <component> <observation moodCode="EVN" classCode="OBS"> < templateId root="03.31.840.1.966014.10..4.2" /> <id nullFlavor="NA " /> <code codeSystem="local" code="720779" displayName="DIAGNOSIS:" / > <statusCode code="completed" /> <effectiveTime value= "063000940265" /> <value unit="" xsi:type="PQ" value="Comment" /> <referenceRange> <observationRange> <text /> </observationRange> </referenceRange> </observation> </component> <component> <observation moodCode="EVN" classCode="OBS "> <templateId root="03.31.840.1.637172.10...4.2" /> <id nullFlavor="NA" /> <code codeSystem="local" code="906451" displayName= "Specimen adequacy:" /> <statusCode code="completed" /> < effectiveTime value="944092493430" /> <value unit="" xsi:type="PQ" value="Comment" /> <referenceRange> <observationRange> <text /> </observationRange> </referenceRange> </observation> </component> <component> <observation moodCode="EVN" classCode="OBS"> <templateId root= "840.1.450191.10..22.4.2" /> <id nullFlavor="NA" /> < code codeSystem="local" code="259159" displayName="Clinician provided ICD10:" / > <statusCode code="completed" /> <effectiveTime value= "990772074618" /> <value unit="" xsi:type="PQ" value="Comment" /> <referenceRange> <observationRange> <text /> </observationRange> </referenceRange> </observation> </component> <component> <observation moodCode="EVN" classCode="OBS "> <templateId root="03.31.840.1.140336.12.02.21.4.2" /> <id nullFlavor="NA" /> <code codeSystem="local" code="587370" displayName= "Performed by:" /> <statusCode code="completed" /> < effectiveTime value="702716247613" /> <value unit="" xsi:type="PQ" value="Comment" /> <referenceRange> <observationRange> <text /> </observationRange> </referenceRange> </observation> </component> <component> <observation moodCode="EVN" classCode="OBS"> <templateId root= "03.31.840.1.640268.10..4.2" /> <id nullFlavor="NA" /> < code codeSystem="local" code="345835" displayName="." /> <statusCode code="completed" /> <effectiveTime value="561922155990" /> < value unit="" xsi:type="PQ" value="." /> <referenceRange> < observationRange> <text /> </observationRange> </referenceRange> </observation> </component> <component> <observation moodCode="EVN" classCode="OBS"> <templateId root= "03.31.830.1.346195.12.02.21.4.2" /> <id nullFlavor="NA" /> < code codeSystem="local" code="893226" displayName="Note:" /> < statusCode code="completed" /> <effectiveTime value="069489826300" /> <value unit="" xsi:type="PQ" value="Comment" /> < referenceRange> <observationRange> <text /> < /observationRange> </referenceRange> </observation> </ component> <component> <observation moodCode="EVN" classCode="OBS"> <templateId root="840.1.074764.12.02.214.2" /> <id nullFlavor="NA" /> <code codeSystem="local" code="912540" displayName= "." /> <statusCode code="completed" /> <effectiveTime value= "484967121175" /> <value unit="" xsi:type="PQ" value="Comment" /> <referenceRange> <observationRange> <text /> </observationRange> </referenceRange> </observation> </component> </organizer> </entry> <entry> <organizer moodCode="EVN" classCode="BATTERY"> <templateId root="840.1.168000.12.02.21.4.1" /> <id nullFlavor="NA" /> <code codeSystem="local" code="766763" displayName="CBC With Differential/Platelet" /> <statusCode code="completed " /> <component> <observation moodCode="EVN" classCode="OBS"> <templateId root="840.1.035863.12.02.21.4.2" /> <id nullFlavor ="NA" /> <code codeSystem="local" code="196531" displayName="WBC" /> <statusCode code="completed" /> <effectiveTime value= "439336465822" /> <value unit="x10E3/uL" xsi:type="PQ" value="10.5" /> <referenceRange> <observationRange> <text>3.4- 10.8</text> </observationRange> </referenceRange> </ observation> </component> <component> <observation moodCode= "EVN" classCode="OBS"> <templateId root="2.16.840.1.260144...22.4.2 " /> <id nullFlavor="NA" /> <code codeSystem="local" code= "300968" displayName="RBC" /> <statusCode code="completed" /> <effectiveTime value="995464286455" /> <value unit="x10E6/uL" xsi:type= "PQ" value="4.68" /> <referenceRange> <observationRange> <text>3.77-5.28</text> </observationRange> </ referenceRange> </observation> </component> <component> <observation moodCode="EVN" classCode="OBS"> <templateId root= "2.16.840.1.532228...22.4.2" /> <id nullFlavor="NA" /> < code codeSystem="local" code="028227" displayName="Hemoglobin" /> < statusCode code="completed" /> <effectiveTime value="701449874517" /> <value unit="g/dL" xsi:type="PQ" value="12.2" /> < referenceRange> <observationRange> <text>11.1-15.9</text > </observationRange> </referenceRange> </observation > </component> <component> <observation moodCode="EVN" classCode="OBS"> <templateId root="2.16.840.1.269022.1022.4.2" /> <id nullFlavor="NA" /> <code codeSystem="local" code="577031" displayName="Hematocrit" /> <statusCode code="completed" /> < effectiveTime value="807824789465" /> <value unit="%" xsi:type="PQ " value="37.8" /> <referenceRange> <observationRange> <text>34.0-46.6</text> </observationRange> </ referenceRange> </observation> </component> <component> <observation moodCode="EVN" classCode="OBS"> <templateId root= "216.840.1.104679.12.02.21.4.2" /> <id nullFlavor="NA" /> < code codeSystem="local" code="576713" displayName="MCV" /> <statusCode code="completed" /> <effectiveTime value="171142159850" /> < value unit="fL" xsi:type="PQ" value="81" /> <referenceRange> <observationRange> <text>79-97</text> </ observationRange> </referenceRange> </observation> </ component> <component> <observation moodCode="EVN" classCode="OBS"> <templateId root="16.840.1.869423.10..4.2" /> <id nullFlavor="NA" /> <code codeSystem="local" code="252122" displayName= "MCH" /> <statusCode code="completed" /> <effectiveTime value= "793255403494" /> <value unit="pg" xsi:type="PQ" value="26.1" /> <interpretationCode codeSystem="local" code="L" /> <referenceRange > <observationRange> <text>26.6-33.0</text> < /observationRange> </referenceRange> </observation> </ component> <component> <observation moodCode="EVN" classCode="OBS"> <templateId root="2.16.840.1.411210.10.4.2" /> <id nullFlavor="NA" /> <code codeSystem="local" code="740396" displayName= "MCHC" /> <statusCode code="completed" /> <effectiveTime value ="870271673471" /> <value unit="g/dL" xsi:type="PQ" value="32.3" /> <referenceRange> <observationRange> <text>31.5- 35.7</text> </observationRange> </referenceRange> </ observation> </component> <component> <observation moodCode= "EVN" classCode="OBS"> <templateId root="216.840.1.456243.12.02.21.4.2 " /> <id nullFlavor="NA" /> <code codeSystem="local" code= "465994" displayName="RDW" /> <statusCode code="completed" /> <effectiveTime value="857760909708" /> <value unit="%" xsi:type="PQ " value="14.5" /> <referenceRange> <observationRange> <text>12.3-15.4</text> </observationRange> </ referenceRange> </observation> </component> <component> <observation moodCode="EVN" classCode="OBS"> <templateId root= "2.16.840.1.683034.12.02.21.4.2" /> <id nullFlavor="NA" /> < code codeSystem="local" code="816277" displayName="Platelets" /> < statusCode code="completed" /> <effectiveTime value="758658799121" /> <value unit="x10E3/uL" xsi:type="PQ" value="318" /> < referenceRange> <observationRange> <text>150-379</text> </observationRange> </referenceRange> </observation > </component> <component> <observation moodCode="EVN" classCode="OBS"> <templateId root="216.840.1.100823.10.2022.4.2" /> <id nullFlavor="NA" /> <code codeSystem="local" code="513377" displayName="Neutrophils" /> <statusCode code="completed" /> < effectiveTime value="032724254776" /> <value unit="%" xsi:type="PQ " value="59" /> <referenceRange> <observationRange> <text /> </observationRange> </referenceRange> </observation> </component> <component> <observation moodCode= "EVN" classCode="OBS"> <templateId root="840.1.727091.1022.4.2 " /> <id nullFlavor="NA" /> <code codeSystem="local" code= "517976" displayName="Lymphs" /> <statusCode code="completed" /> <effectiveTime value="197070486408" /> <value unit="%" xsi:type ="PQ" value="31" /> <referenceRange> <observationRange> <text /> </observationRange> </referenceRange> </observation> </component> <component> <observation moodCode="EVN" classCode="OBS"> <templateId root= "03.31.840.1.956774.10.2022.4.2" /> <id nullFlavor="NA" /> < code codeSystem="local" code="352943" displayName="Monocytes" /> < statusCode code="completed" /> <effectiveTime value="666034671315" /> <value unit="%" xsi:type="PQ" value="8" /> <referenceRange > <observationRange> <text /> </ observationRange> </referenceRange> </observation> </ component> <component> <observation moodCode="EVN" classCode="OBS"> <templateId root="03.31.840.1.386463.10.22.4.2" /> <id nullFlavor="NA" /> <code codeSystem="local" code="180048" displayName= "Eos" /> <statusCode code="completed" /> <effectiveTime value= "241828098944" /> <value unit="%" xsi:type="PQ" value="1" /> <referenceRange> <observationRange> <text /> </observationRange> </referenceRange> </observation> < /component> <component> <observation moodCode="EVN" classCode="OBS" > <templateId root="03.31.840.1.290555.10.4.2" /> <id nullFlavor="NA" /> <code codeSystem="local" code="727452" displayName= "Basos" /> <statusCode code="completed" /> <effectiveTime value="198735614653" /> <value unit="%" xsi:type="PQ" value="0" /> <referenceRange> <observationRange> <text /> </observationRange> </referenceRange> </observation> </component> <component> <observation moodCode="EVN" classCode ="OBS"> <templateId root="03.31.840.1.533445.102022.4.2" /> < id nullFlavor="NA" /> <code codeSystem="local" code="413332" displayName="Neutrophils (Absolute)" /> <statusCode code="completed" / > <effectiveTime value="287152418799" /> <value unit="x10E3/uL " xsi:type="PQ" value="6.2" /> <referenceRange> < observationRange> <text>1.4-7.0</text> </ observationRange> </referenceRange> </observation> </ component> <component> <observation moodCode="EVN" classCode="OBS"> <templateId root="2.16.840.1.919123.10.20.22.4.2" /> <id nullFlavor="NA" /> <code codeSystem="local" code="269900" displayName= "Lymphs (Absolute)" /> <statusCode code="completed" /> < effectiveTime value="090853230190" /> <value unit="x10E3/uL" xsi:type= "PQ" value="3.2" /> <interpretationCode codeSystem="local" code="H" /> <referenceRange> <observationRange> <text>0.7- 3.1</text> </observationRange> </referenceRange> </ observation> </component> <component> <observation moodCode= "EVN" classCode="OBS"> <templateId root="2.16.840.1.315779.10.20.22.4.2 " /> <id nullFlavor="NA" /> <code codeSystem="local" code= "810277" displayName="Monocytes(Absolute)" /> <statusCode code= "completed" /> <effectiveTime value="857368227927" /> <value unit="x10E3/uL" xsi:type="PQ" value="0.8" /> <referenceRange> <observationRange> <text>0.1-0.9</text> </ observationRange> </referenceRange> </observation> </ component> <component> <observation moodCode="EVN" classCode="OBS"> <templateId root="216.840.1.918744.10.22.4.2" /> <id nullFlavor="NA" /> <code codeSystem="local" code="992299" displayName= "Eos (Absolute)" /> <statusCode code="completed" /> < effectiveTime value="044993052058" /> <value unit="x10E3/uL" xsi:type= "PQ" value="0.2" /> <referenceRange> <observationRange> <text>0.0-0.4</text> </observationRange> </ referenceRange> </observation> </component> <component> <observation moodCode="EVN" classCode="OBS"> <templateId root= "16.840.1.855874.12.02.21.4.2" /> <id nullFlavor="NA" /> < code codeSystem="local" code="886164" displayName="Baso (Absolute)" /> <statusCode code="completed" /> <effectiveTime value="098125822520" /> <value unit="x10E3/uL" xsi:type="PQ" value="0.0" /> < referenceRange> <observationRange> <text>0.0-0.2</text> </observationRange> </referenceRange> </observation > </component> <component> <observation moodCode="EVN" classCode="OBS"> <templateId root="16.840.1.521938.10.2022.4.2" /> <id nullFlavor="NA" /> <code codeSystem="local" code="363904" displayName="Immature Granulocytes" /> <statusCode code="completed" /> <effectiveTime value="827819049160" /> <value unit="%" xsi:type="PQ" value="1" /> <referenceRange> < observationRange> <text /> </observationRange> </referenceRange> </observation> </component> <component> <observation moodCode="EVN" classCode="OBS"> <templateId root= "03.31.840.1.970798.10.20.22.4.2" /> <id nullFlavor="NA" /> < code codeSystem="local" code="845434" displayName="Immature Grans (Abs)" /> <statusCode code="completed" /> <effectiveTime value= "856859059692" /> <value unit="x10E3/uL" xsi:type="PQ" value="0.1" /> <referenceRange> <observationRange> <text>0.0- 0.1</text> </observationRange> </referenceRange> </ observation> </component> </organizer> </entry> <entry> <organizer moodCode="EVN" classCode="BATTERY"> <templateId root= "840.1.493638.10...4.1" /> <id nullFlavor="NA" /> <code codeSystem="local" code="205327" displayName="ABO Grouping and Rho(D) Typing" / > <statusCode code="completed" /> <component> <observation moodCode="EVN" classCode="OBS"> <templateId root= "03.31.840.1.049478.10.20.22.4.2" /> <id nullFlavor="NA" /> < code codeSystem="local" code="040876" displayName="ABO Grouping" /> < statusCode code="completed" /> <effectiveTime value="281570700211" /> <value unit="" xsi:type="PQ" value="O" /> <referenceRange> <observationRange> <text /> </observationRange > </referenceRange> </observation> </component> < component> <observation moodCode="EVN" classCode="OBS"> < templateId root="2.16.840.1.968345.10..22.4.2" /> <id nullFlavor="NA " /> <code codeSystem="local" code="266209" displayName="Rh Factor" /> <statusCode code="completed" /> <effectiveTime value= "437286729531" /> <value unit="" xsi:type="PQ" value="Positive" /> <referenceRange> <observationRange> <text /> </observationRange> </referenceRange> </observation> </component> </organizer> </entry> <entry> <organizer moodCode="EVN" classCode="BATTERY"> <templateId root="2.16.840.1.390841.10..22.4.1" /> <id nullFlavor="NA" /> <code codeSystem="local" code="382814" displayName="TSH " /> <statusCode code="completed" /> < component> <observation moodCode="EVN" classCode="OBS"> < templateId root="2.16.840.1.276337.10..22.4.2" /> <id nullFlavor="NA " /> <code codeSystem="local" code="773812" displayName="TSH " /> <statusCode code="completed" /> <effectiveTime value= "046871263332" /> <value unit="uIU/mL" xsi:type="PQ" value="4.340" /> <referenceRange> <observationRange> <text>0.450 -4.500</text> </observationRange> </referenceRange> < /observation> </component> </organizer> </entry> <entry> < organizer moodCode="EVN" classCode="BATTERY"> <templateId root= "840.1.239570.12.02.21.4.1" /> <id nullFlavor="NA" /> <code codeSystem="local" code="237060" displayName="Rubella Antibodies, IgG" /> < statusCode code="completed" /> <component> <observation moodCode= "EVN" classCode="OBS"> <templateId root="840.1.360781.12.02.21.4.2 " /> <id nullFlavor="NA" /> <code codeSystem="local" code= "481516" displayName="Rubella Antibodies, IgG" /> <statusCode code= "completed" /> <effectiveTime value="315664065564" /> <value unit="index" xsi:type="PQ" value="<0.90" /> <interpretationCode codeSystem="local" code="L" /> <referenceRange> < observationRange> <text>Immune >0.99</text> </ observationRange> </referenceRange> </observation> </ component> </organizer> </entry> <entry> <organizer moodCode="EVN" classCode="BATTERY"> <templateId root="840.1.359407.12.02.21.4.1" /> <id nullFlavor="NA" /> <code codeSystem="local" code="223348" displayName="Antibody Screen" /> <statusCode code="completed" /> < component> <observation moodCode="EVN" classCode="OBS"> < templateId root="840.1.528268.12.02.21.4.2" /> <id nullFlavor="NA " /> <code codeSystem="local" code="819851" displayName="Antibody Screen" /> <statusCode code="completed" /> <effectiveTime value="312398422702" /> <value unit="" xsi:type="PQ" value="Negative" / > <referenceRange> <observationRange> <text> Negative</text> </observationRange> </referenceRange> </observation> </component> </organizer> </entry> <entry> < organizer moodCode="EVN" classCode="BATTERY"> <templateId root= "03.31.840.1.745474.10..4.1" /> <id nullFlavor="NA" /> <code codeSystem="local" code="305390" displayName="RUBELLA ANTIBODIES, IgG" /> < statusCode code="completed" /> <component> <observation moodCode= "EVN" classCode="OBS"> <templateId root="16.840.1.340838.10...4.2 " /> <id nullFlavor="NA" /> <code codeSystem="local" code= "820567" displayName="Rubella Antibodies, IgG" /> <statusCode code= "completed" /> <effectiveTime value="749609368256" /> <value unit="index" xsi:type="PQ" value="<0.90" /> <interpretationCode codeSystem="local" code="*" /> <referenceRange> < observationRange> <text>Immune >0.99</text> </ observationRange> </referenceRange> </observation> </ component> </organizer> </entry> <entry> <organizer moodCode="EVN" classCode="BATTERY"> <templateId root="03.31.840.1.519157.10..4.1" /> <id nullFlavor="NA" /> <code codeSystem="local" code="352916" displayName="AFP Tetra" /> <statusCode code="completed" /> <component > <observation moodCode="EVN" classCode="OBS"> <templateId root= "216.840.1.640030.10.22.4.2" /> <id nullFlavor="NA" /> < code codeSystem="local" code="701776" displayName="Results" /> < statusCode code="completed" /> <effectiveTime value="" /> <value unit="" xsi:type="PQ" value="Report" /> <referenceRange > <observationRange> <text /> </ observationRange> </referenceRange> </observation> </ component> <component> <observation moodCode="EVN" classCode="OBS"> <templateId root="216.840.1.940182.22.4.2" /> <id nullFlavor="NA" /> <code codeSystem="local" code="989741" displayName= "Test Results:" /> <statusCode code="completed" /> < effectiveTime value="" /> <value unit="" xsi:type="PQ" value="*Screen Negative*" /> <referenceRange> < observationRange> <text /> </observationRange> </referenceRange> </observation> </component> <component> <observation moodCode="EVN" classCode="OBS"> <templateId root= "216.840.1.749906.1022.4.2" /> <id nullFlavor="NA" /> < code codeSystem="local" code="839767" displayName="Gest. Age on Collection Date " /> <statusCode code="completed" /> <effectiveTime value= "" /> <value unit="WEEKS" xsi:type="PQ" value="15.7" /> <referenceRange> <observationRange> <text /> </observationRange> </referenceRange> </observation> </component> <component> <observation moodCode="EVN" classCode= "OBS"> <templateId root="216.840.1.374590.10..4.2" /> < id nullFlavor="NA" /> <code codeSystem="local" code="993615" displayName="Gestat. Age Based On" /> <statusCode code="completed" /> <effectiveTime value="" /> <value unit="" xsi:type ="PQ" value="Ultrasound" /> <referenceRange> < observationRange> <text /> </observationRange> </referenceRange> </observation> </component> <component> <observation moodCode="EVN" classCode="OBS"> <templateId root= "16.840.1.761711.10..4.2" /> <id nullFlavor="NA" /> < code codeSystem="local" code="226431" displayName="Maternal Age At ORLANDO" /> <statusCode code="completed" /> <effectiveTime value=" " /> <value unit="YEARS" xsi:type="PQ" value="27.0" /> < referenceRange> <observationRange> <text /> < /observationRange> </referenceRange> </observation> </ component> <component> <observation moodCode="EVN" classCode="OBS"> <templateId root="03.31.840.1.525656.10.22.4.2" /> <id nullFlavor="NA" /> <code codeSystem="local" code="381502" displayName= "Race" /> <statusCode code="completed" /> <effectiveTime value ="" /> <value unit="" xsi:type="PQ" value="Other" /> <referenceRange> <observationRange> <text /> </observationRange> </referenceRange> </observation> < /component> <component> <observation moodCode="EVN" classCode="OBS" > <templateId root="216.840.1.203438.10.4.2" /> <id nullFlavor="NA" /> <code codeSystem="local" code="518823" displayName= "Weight" /> <statusCode code="completed" /> <effectiveTime value="" /> <value unit="lbs" xsi:type="PQ" value="293" /> <referenceRange> <observationRange> <text /> </observationRange> </referenceRange> </observation> </component> <component> <observation moodCode="EVN" classCode ="OBS"> <templateId root="216.840.1.673131...4.2" /> < id nullFlavor="NA" /> <code codeSystem="local" code="343046" displayName="Insulin Dep Diabetes" /> <statusCode code="completed" /> <effectiveTime value="" /> <value unit="" xsi:type ="PQ" value="No" /> <referenceRange> <observationRange> <text /> </observationRange> </referenceRange> </observation> </component> <component> <observation moodCode="EVN" classCode="OBS"> <templateId root= "16.840.1.059820.10.4.2" /> <id nullFlavor="NA" /> < code codeSystem="local" code="703323" displayName="Multiple Gestation" /> <statusCode code="completed" /> <effectiveTime value=" " /> <value unit="" xsi:type="PQ" value="No" /> < referenceRange> <observationRange> <text /> < /observationRange> </referenceRange> </observation> </ component> <component> <observation moodCode="EVN" classCode="OBS"> <templateId root="216.840.1.953631.1022.4.2" /> <id nullFlavor="NA" /> <code codeSystem="local" code="206897" displayName= "AFP Value" /> <statusCode code="completed" /> <effectiveTime value="611484840199" /> <value unit="ng/mL" xsi:type="PQ" value="15.0" /> <referenceRange> <observationRange> <text / > </observationRange> </referenceRange> </observation > </component> <component> <observation moodCode="EVN" classCode="OBS"> <templateId root="216.840.1.538489.22.4.2" /> <id nullFlavor="NA" /> <code codeSystem="local" code="772291" displayName="AFP MoM" /> <statusCode code="completed" /> < effectiveTime value="939999181265" /> <value unit="" xsi:type="PQ" value="0.71" /> <referenceRange> <observationRange> <text /> </observationRange> </referenceRange> </observation> </component> <component> <observation moodCode= "EVN" classCode="OBS"> <templateId root="16.840.1.984763.1022.4.2 " /> <id nullFlavor="NA" /> <code codeSystem="local" code= "465895" displayName="hCG Value" /> <statusCode code="completed" /> <effectiveTime value="607899852233" /> <value unit="mIU/mL" xsi: type="PQ" value="45909" /> <referenceRange> < observationRange> <text /> </observationRange> </referenceRange> </observation> </component> <component> <observation moodCode="EVN" classCode="OBS"> <templateId root= "216.840.1.271089.10.4.2" /> <id nullFlavor="NA" /> < code codeSystem="local" code="578534" displayName="hCG MoM" /> < statusCode code="completed" /> <effectiveTime value="" /> <value unit="" xsi:type="PQ" value="1.51" /> <referenceRange> <observationRange> <text /> </ observationRange> </referenceRange> </observation> </ component> <component> <observation moodCode="EVN" classCode="OBS"> <templateId root="03.31.840.1.574353.10.4.2" /> <id nullFlavor="NA" /> <code codeSystem="local" code="717672" displayName= "uE3 Value" /> <statusCode code="completed" /> <effectiveTime value="923635962512" /> <value unit="ng/mL" xsi:type="PQ" value="0.56" /> <referenceRange> <observationRange> <text / > </observationRange> </referenceRange> </observation > </component> <component> <observation moodCode="EVN" classCode="OBS"> <templateId root="03.31.840.1.740462.10.22.4.2" /> <id nullFlavor="NA" /> <code codeSystem="local" code="830617" displayName="uE3 MoM" /> <statusCode code="completed" /> < effectiveTime value="492004574632" /> <value unit="" xsi:type="PQ" value="0.88" /> <referenceRange> <observationRange> <text /> </observationRange> </referenceRange> </observation> </component> <component> <observation moodCode= "EVN" classCode="OBS"> <templateId root="03.31.840.1.614677.102022.4.2 " /> <id nullFlavor="NA" /> <code codeSystem="local" code= "192838" displayName="DAVID Value" /> <statusCode code="completed" /> <effectiveTime value="836511103761" /> <value unit="pg/mL" xsi: type="PQ" value="108.36" /> <referenceRange> < observationRange> <text /> </observationRange> </referenceRange> </observation> </component> <component> <observation moodCode="EVN" classCode="OBS"> <templateId root= "03.31.840.1.371028.1022.4.2" /> <id nullFlavor="NA" /> < code codeSystem="local" code="217171" displayName="DAVID MoM" /> < statusCode code="completed" /> <effectiveTime value="" /> <value unit="" xsi:type="PQ" value="0.84" /> <referenceRange> <observationRange> <text /> </ observationRange> </referenceRange> </observation> </ component> <component> <observation moodCode="EVN" classCode="OBS"> <templateId root="03.31.840.1.232437.102022.4.2" /> <id nullFlavor="NA" /> <code codeSystem="local" code="409349" displayName= "OSBR Risk 1 IN" /> <statusCode code="completed" /> < effectiveTime value="043647452648" /> <value unit="" xsi:type="PQ" value="44921" /> <referenceRange> <observationRange> <text /> </observationRange> </referenceRange> </observation> </component> <component> <observation moodCode ="EVN" classCode="OBS"> <templateId root= "216.840.1.285540.10.2022.4.2" /> <id nullFlavor="NA" /> < code codeSystem="local" code="885649" displayName="DSR (Second Trimester) 1 IN" /> <statusCode code="completed" /> <effectiveTime value= "" /> <value unit="" xsi:type="PQ" value="2711" /> <referenceRange> <observationRange> <text /> </observationRange> </referenceRange> </observation> </ component> <component> <observation moodCode="EVN" classCode="OBS"> <templateId root="03.31.840.1.092735.1022.4.2" /> <id nullFlavor="NA" /> <code codeSystem="local" code="365186" displayName= "DSR (By Age) 1 IN" /> <statusCode code="completed" /> < effectiveTime value="" /> <value unit="" xsi:type="PQ" value="924" /> <referenceRange> <observationRange> <text /> </observationRange> </referenceRange> < /observation> </component> <component> <observation moodCode= "EVN" classCode="OBS"> <templateId root="03.31.840.1.539719.10.2022.4.2 " /> <id nullFlavor="NA" /> <code codeSystem="local" code= "363260" displayName="T18 Risk" /> <statusCode code="completed" /> <effectiveTime value="" /> <value unit="" xsi:type= "PQ" value="Not increased" /> <referenceRange> < observationRange> <text /> </observationRange> </referenceRange> </observation> </component> <component> <observation moodCode="EVN" classCode="OBS"> <templateId root= "216.840.1.336796.10..4.2" /> <id nullFlavor="NA" /> < code codeSystem="local" code="427858" displayName="T18 (By Age)" /> < statusCode code="completed" /> <effectiveTime value="" /> <value unit="" xsi:type="PQ" value="1:3600" /> <referenceRange > <observationRange> <text /> </ observationRange> </referenceRange> </observation> </ component> <component> <observation moodCode="EVN" classCode="OBS"> <templateId root="03.31.840.1.545464.10.4.2" /> <id nullFlavor="NA" /> <code codeSystem="local" code="945556" displayName= "Interpretation" /> <statusCode code="completed" /> < effectiveTime value="" /> <value unit="" xsi:type="PQ" value="Comment" /> <referenceRange> <observationRange> <text /> </observationRange> </referenceRange> </observation> </component> <component> <observation moodCode="EVN" classCode="OBS"> <templateId root= "03.31.840.1.143682.10.4.2" /> <id nullFlavor="NA" /> < code codeSystem="local" code="562824" displayName="PDF" /> <statusCode code="completed" /> <effectiveTime value="971728275620" /> < value unit="" xsi:type="PQ" value="." /> <referenceRange> < observationRange> <text /> </observationRange> </referenceRange> </observation> </component> <component> <observation moodCode="EVN" classCode="OBS"> <templateId root= "16.840.1.560150.12.02.21.4.2" /> <id nullFlavor="NA" /> < code codeSystem="local" code="649003" displayName="Comments:" /> < statusCode code="completed" /> <effectiveTime value="331255677838" /> <value unit="" xsi:type="PQ" value="Comment" /> < referenceRange> <observationRange> <text /> < /observationRange> </referenceRange> </observation> </ component> </organizer> </entry> <entry> <organizer moodCode="EVN" classCode="BATTERY"> <templateId root="16.840.1.142194.10..4.1" /> <id nullFlavor="NA" /> <code codeSystem="local" code="CumulativePDF" displayName="PDF Report" /> <statusCode code="completed" /> <component > <observation moodCode="EVN" classCode="OBS"> <templateId root= "03.31.840.1.908053.10.22.4.2" /> <id nullFlavor="NA" /> < code codeSystem="local" code="CumulativePDF" displayName="PDF Report1" /> <statusCode code="completed" /> <effectiveTime value="690527234446 " /> <value unit="" xsi:type="PQ" value="LCLS" /> < referenceRange> <observationRange> <text>NRG</text> </observationRange> </referenceRange> </observation> </component> </organizer> </entry> <entry> <organizer moodCode="EVN" classCode="BATTERY"> <templateId root="03.31.840.1.571436.10...4.1" /> <id nullFlavor="NA" /> <code codeSystem="local" code="19985-0" displayName="Influenza virus A and B antigen detection" /> <statusCode code ="completed" /> <component> <observation moodCode="EVN" classCode= "OBS"> <templateId root="840.1.751187...4.2" /> < id nullFlavor="NA" /> <code codeSystem="local" code="FLURESULT" displayName="FLU RESULT" /> <statusCode code="completed" /> < effectiveTime value="603557655004" /> <value unit="" xsi:type="PQ" value="NEGATIVE FOR INFLUENZA A AND B ANTIGENS BY IA" /> < referenceRange> <observationRange> <text>NRG</text> </observationRange> </referenceRange> </observation> </component> </organizer> </entry> <entry> <organizer moodCode="EVN" classCode="BATTERY"> <templateId root="840.1.242175.12.02.21.4.1" /> <id nullFlavor="NA" /> <code codeSystem="local" code="WETPREP" displayName="WET PREP" /> <statusCode code="completed" /> <component> <observation moodCode="EVN" classCode="OBS"> <templateId root= "03.31.840.1.855754.10..22.4.2" /> <id nullFlavor="NA" /> < code codeSystem="local" code="EPITHCELL" displayName="EPITHELIAL" /> < statusCode code="completed" /> <effectiveTime value="200779067834" /> <value unit="" xsi:type="PQ" value="MODERATE" /> < interpretationCode codeSystem="local" code="*" /> <referenceRange> <observationRange> <text /> </observationRange> </referenceRange> </observation> </component> < component> <observation moodCode="EVN" classCode="OBS"> < templateId root="16.840.1.191105.10..22.4.2" /> <id nullFlavor="NA " /> <code codeSystem="local" code="CLUECELLS" displayName="CLUE CELLS " /> <statusCode code="completed" /> <effectiveTime value= "810817681496" /> <value unit="" xsi:type="PQ" value="MODERATE" /> <interpretationCode codeSystem="local" code="*" /> < referenceRange> <observationRange> <text /> < /observationRange> </referenceRange> </observation> </ component> <component> <observation moodCode="EVN" classCode="OBS"> <templateId root="16.840.1.901869.10..22.4.2" /> <id nullFlavor="NA" /> <code codeSystem="local" code="WBCWETPR" displayName ="WBC" /> <statusCode code="completed" /> <effectiveTime value ="[id number]" /> <value unit="cells/hpf" xsi:type="PQ" value= "MODERATE" /> <interpretationCode codeSystem="local" code="*" /> <referenceRange> <observationRange> <text /> </observationRange> </referenceRange> </observation> < /component> <component> <observation moodCode="EVN" classCode="OBS" > <templateId root="16.840.1.005838.10.22.4.2" /> <id nullFlavor="NA" /> <code codeSystem="local" code="RBCWETPR" displayName ="RBC" /> <statusCode code="completed" /> <effectiveTime value ="" /> <value unit="/HPF" xsi:type="PQ" value="RARE" /> <referenceRange> <observationRange> <text /> </observationRange> </referenceRange> </observation> </component> <component> <observation moodCode="EVN" classCode= "OBS"> <templateId root="16.840.1.364487.12.02.21.4.2" /> < id nullFlavor="NA" /> <code codeSystem="local" code="BACTWETP" displayName="BACTERIA" /> <statusCode code="completed" /> < effectiveTime value="" /> <value unit="" xsi:type="PQ" value="4+" /> <interpretationCode codeSystem="local" code="*" /> <referenceRange> <observationRange> <text /> </observationRange> </referenceRange> </observation> < /component> <component> <observation moodCode="EVN" classCode="OBS" > <templateId root="03.31.840.1.681020.10.4.2" /> <id nullFlavor="NA" /> <code codeSystem="local" code="YEASTWET" displayName ="YEAST" /> <statusCode code="completed" /> <effectiveTime value="" /> <value unit="cells/hpf" xsi:type="PQ" value= "NONE" /> <referenceRange> <observationRange> < text /> </observationRange> </referenceRange> </ observation> </component> <component> <observation moodCode= "EVN" classCode="OBS"> <templateId root="216.840.1.550551.12.02.21.4.2 " /> <id nullFlavor="NA" /> <code codeSystem="local" code= "TRICH" displayName="TRICHOMONA" /> <statusCode code="completed" /> <effectiveTime value="" /> <value unit="" xsi:type= "PQ" value="NONE" /> <referenceRange> <observationRange> <text /> </observationRange> </referenceRange> </observation> </component> <component> <observation moodCode="EVN" classCode="OBS"> <templateId root= "216.840.1.014972.12.02.21.4.2" /> <id nullFlavor="NA" /> < code codeSystem="local" code="SPERMWET" displayName="SPERM" /> < statusCode code="completed" /> <effectiveTime value="" /> <value unit="" xsi:type="PQ" value="NONE" /> <referenceRange> <observationRange> <text /> </ observationRange> </referenceRange> </observation> </ component> <component> <observation moodCode="EVN" classCode="OBS"> <templateId root="16.840.1.298990.12.02.21.4.2" /> <id nullFlavor="NA" /> <code codeSystem="local" code="LAB" displayName= "Laboratory" /> <statusCode code="completed" /> < effectiveTime value="" /> <value unit="" xsi:type="PQ" value="" /> <referenceRange> <observationRange> <text /> </observationRange> </referenceRange> </ observation> </component> </organizer> </entry> <entry> <organizer moodCode="EVN" classCode="BATTERY"> <templateId root= "16.840.1.864223.10.22.4.1" /> <id nullFlavor="NA" /> <code codeSystem="local" code="CHLAMGC" displayName="CHLAMYDIA/GC DNA PROBE PCR" /> <statusCode code="completed" /> <component> <observation moodCode="EVN" classCode="OBS"> <templateId root= "216.840.1.592075.10...4.2" /> <id nullFlavor="NA" /> < code codeSystem="local" code="CHLAMYD" displayName="CHLAMYD" /> < statusCode code="completed" /> <effectiveTime value="709395889498" /> <value xsi:type="ST" value="<pre><b>CHLAMYDIA/GC DNA PROBE PCR</b> POSITIVENEGATIVE</pre>" /> <interpretationCode codeSystem="local" code= "*" /> <referenceRange> <observationRange> < text>NEGATIVE</text> </observationRange> </referenceRange> </observation> </component> <component> <observation moodCode="EVN" classCode="OBS"> <templateId root= "216.840.1.707286...4.2" /> <id nullFlavor="NA" /> < code codeSystem="local" code="GC" displayName="GC" /> <statusCode code= "completed" /> <effectiveTime value="314465331999" /> <value xsi:type="ST" value="<pre><b>CHLAMYDIA/GC DNA PROBE PCR</b> POSITIVENEGATIVE</ pre>" /> <referenceRange> <observationRange> < text>NEGATIVE</text> </observationRange> </referenceRange> </observation> </component> <component> <observation moodCode="EVN" classCode="OBS"> <templateId root= "2.16.840.1.364261.10..22.4.2" /> <id nullFlavor="NA" /> < code codeSystem="local" code="LAB" displayName="Laboratory" /> < statusCode code="completed" /> <effectiveTime value="465120480484" /> <value xsi:type="ST" value="<pre><b>CHLAMYDIA/GC DNA PROBE PCR</b> POSITIVENEGATIVE</pre>" /> <referenceRange> < observationRange> <text /> </observationRange> </referenceRange> </observation> </component> </organizer> </ entry> <entry> <organizer moodCode="EVN" classCode="BATTERY"> < templateId root="2.16.840.1.815302.10..22.4.1" /> <id nullFlavor="NA" /> <code codeSystem="local" code="6399" displayName="CBC" /> < statusCode code="completed" /> <component> <observation moodCode= "EVN" classCode="OBS"> <templateId root="2.16.840.1.596921.10.20.22.4.2 " /> <id nullFlavor="NA" /> <code codeSystem="local" code= "63622596" displayName="WHITE BLOOD CELL COUNT" /> <statusCode code= "completed" /> <effectiveTime value="813345206560" /> <value unit="Thousand/uL" xsi:type="PQ" value="12.2" /> <interpretationCode codeSystem="local" code="*" /> <referenceRange> < observationRange> <text>3.8-10.8</text> </ observationRange> </referenceRange> </observation> </ component> <component> <observation moodCode="EVN" classCode="OBS"> <templateId root="2.16.840.1.925422.10.20.22.4.2" /> <id nullFlavor="NA" /> <code codeSystem="local" code="63381077" displayName ="RED BLOOD CELL COUNT" /> <statusCode code="completed" /> < effectiveTime value="" /> <value unit="Million/uL" xsi:type ="PQ" value="4.52" /> <referenceRange> <observationRange> <text>3.80-5.10</text> </observationRange> </ referenceRange> </observation> </component> <component> <observation moodCode="EVN" classCode="OBS"> <templateId root= "216.840.1.941336.10.22.4.2" /> <id nullFlavor="NA" /> < code codeSystem="local" code="70067189" displayName="HEMOGLOBIN" /> < statusCode code="completed" /> <effectiveTime value="" /> <value unit="g/dL" xsi:type="PQ" value="12.0" /> < referenceRange> <observationRange> <text>11.7-15.5</text > </observationRange> </referenceRange> </observation > </component> <component> <observation moodCode="EVN" classCode="OBS"> <templateId root="16.840.1.074638.10.20.22.4.2" /> <id nullFlavor="NA" /> <code codeSystem="local" code="99381196 " displayName="HEMATOCRIT" /> <statusCode code="completed" /> <effectiveTime value="" /> <value unit="%" xsi:type="PQ " value="36.9" /> <referenceRange> <observationRange> <text>35.0-45.0</text> </observationRange> </ referenceRange> </observation> </component> <component> <observation moodCode="EVN" classCode="OBS"> <templateId root= "216.840.1.381753.10.20.22.4.2" /> <id nullFlavor="NA" /> < code codeSystem="local" code="32213233" [place]Name[place] [place] /> < statusCode code="completed" /> <effectiveTime value="" /> <value unit="fL" xsi:type="PQ" value="81.6" /> <referenceRange > <observationRange> <text>80.0-100.0</text> </observationRange> </referenceRange> </observation> </ component> <component> <observation moodCode="EVN" classCode="OBS"> <templateId root="16.840.1.538945.10..22.4.2" /> <id nullFlavor="NA" /> <code codeSystem="local" code="76866982" displayName ="[facility]" /> <statusCode code="completed" /> <effectiveTime value ="" /> <value unit="pg" xsi:type="PQ" value="26.5" /> <interpretationCode codeSystem="local" code="*" /> <referenceRange > <observationRange> <text>27.0-33.0</text> < /observationRange> </referenceRange> </observation> </ component> <component> <observation moodCode="EVN" classCode="OBS"> <templateId root="16.840.1.272991.10.20.22.4.2" /> <id nullFlavor="NA" /> <code codeSystem="local" code="60189756" displayName ="[facility]" /> <statusCode code="completed" /> <effectiveTime value="990296452684" /> <value unit="g/dL" xsi:type="PQ" value="32.5" / > <referenceRange> <observationRange> <text> 32.0-36.0</text> </observationRange> </referenceRange> </observation> </component> <component> <observation moodCode="EVN" classCode="OBS"> <templateId root= "2.16.840.1.014118.10..22.4.2" /> <id nullFlavor="NA" /> < code codeSystem="local" code="11908735" displayName="RDW" /> < statusCode code="completed" /> <effectiveTime value="" /> <value unit="%" xsi:type="PQ" value="14.2" /> < referenceRange> <observationRange> <text>11.0-15.0</text > </observationRange> </referenceRange> </observation > </component> <component> <observation moodCode="EVN" classCode="OBS"> <templateId root="2.16.840.1.602356.10..22.4.2" /> <id nullFlavor="NA" /> <code codeSystem="local" code="43605384 " displayName="PLATELET COUNT" /> <statusCode code="completed" /> <effectiveTime value="516794638777" /> <value unit="Thousand/uL" xsi:type="PQ" value="250" /> <referenceRange> < observationRange> <text>140-400</text> </ observationRange> </referenceRange> </observation> </ component> <component> <observation moodCode="EVN" classCode="OBS"> <templateId root="216.840.1.070826.22.4.2" /> <id nullFlavor="NA" /> <code codeSystem="local" code="95115807" displayName ="MPV" /> <statusCode code="completed" /> <effectiveTime value ="" /> <value unit="fL" xsi:type="PQ" value="12.4" /> <referenceRange> <observationRange> <text>7.5-12.5< /text> </observationRange> </referenceRange> </ observation> </component> <component> <observation moodCode= "EVN" classCode="OBS"> <templateId root="2.16.840.1.180354.12.02.21.4.2 " /> <id nullFlavor="NA" /> <code codeSystem="local" code= "48940284" displayName="ABSOLUTE NEUTROPHILS" /> <statusCode code= "completed" /> <effectiveTime value="" /> <value unit="cells/uL" xsi:type="PQ" value="9260" /> <interpretationCode codeSystem="local" code="*" /> <referenceRange> < observationRange> <text>4863-1308</text> </ observationRange> </referenceRange> </observation> </ component> <component> <observation moodCode="EVN" classCode="OBS"> <templateId root="216.840.1.450532.12.02.21.4.2" /> <id nullFlavor="NA" /> <code codeSystem="local" code="22888685" displayName ="ABSOLUTE LYMPHOCYTES" /> <statusCode code="completed" /> < effectiveTime value="" /> <value unit="cells/uL" xsi:type= "PQ" value="1854" /> <referenceRange> <observationRange> <text>850-3900</text> </observationRange> </ referenceRange> </observation> </component> <component> <observation moodCode="EVN" classCode="OBS"> <templateId root= "216.840.1.224132.10..22.4.2" /> <id nullFlavor="NA" /> < code codeSystem="local" code="88827025" displayName="ABSOLUTE MONOCYTES" /> <statusCode code="completed" /> <effectiveTime value= "575544363855" /> <value unit="cells/uL" xsi:type="PQ" value="903" /> <referenceRange> <observationRange> <text>200- 950</text> </observationRange> </referenceRange> </ observation> </component> <component> <observation moodCode= "EVN" classCode="OBS"> <templateId root="216.840.1.097462.22.4.2 " /> <id nullFlavor="NA" /> <code codeSystem="local" code= "77824330" displayName="ABSOLUTE EOSINOPHILS" /> <statusCode code= "completed" /> <effectiveTime value="" /> <value unit="cells/uL" xsi:type="PQ" value="159" /> <referenceRange> <observationRange> <text>15-500</text> </ observationRange> </referenceRange> </observation> </ component> <component> <observation moodCode="EVN" classCode="OBS"> <templateId root="216.840.1.350518.10..22.4.2" /> <id nullFlavor="NA" /> <code codeSystem="local" code="55125490" displayName ="ABSOLUTE BASOPHILS" /> <statusCode code="completed" /> < effectiveTime value="555489138744" /> <value unit="cells/uL" xsi:type= "PQ" value="24" /> <referenceRange> <observationRange> <text>0-200</text> </observationRange> </ referenceRange> </observation> </component> <component> <observation moodCode="EVN" classCode="OBS"> <templateId root= "216.840.1.898813.10.20.22.4.2" /> <id nullFlavor="NA" /> < code codeSystem="local" code="11580391" displayName="NEUTROPHILS" /> < statusCode code="completed" /> <effectiveTime value="" /> <value unit="%" xsi:type="PQ" value="75.9" /> < referenceRange> <observationRange> <text>NRG</text> </observationRange> </referenceRange> </observation> </component> <component> <observation moodCode="EVN" classCode= "OBS"> <templateId root="03.31.840.1.318231.10.2022.4.2" /> < id nullFlavor="NA" /> <code codeSystem="local" code="66904331" displayName="LYMPHOCYTES" /> <statusCode code="completed" /> < effectiveTime value="" /> <value unit="%" xsi:type="PQ " value="15.2" /> <referenceRange> <observationRange> <text>NRG</text> </observationRange> </ referenceRange> </observation> </component> <component> <observation moodCode="EVN" classCode="OBS"> <templateId root= "03.31.840.1.148401.10.20.22.4.2" /> <id nullFlavor="NA" /> < code codeSystem="local" code="88311610" displayName="MONOCYTES" /> < statusCode code="completed" /> <effectiveTime value="" /> <value unit="%" xsi:type="PQ" value="7.4" /> < referenceRange> <observationRange> <text>NRG</text> </observationRange> </referenceRange> </observation> </component> <component> <observation moodCode="EVN" classCode= "OBS"> <templateId root="2.16.840.1.233971.10..22.4.2" /> < id nullFlavor="NA" /> <code codeSystem="local" code="63384553" displayName="EOSINOPHILS" /> <statusCode code="completed" /> < effectiveTime value="" /> <value unit="%" xsi:type="PQ " value="1.3" /> <referenceRange> <observationRange> <text>NRG</text> </observationRange> </referenceRange > </observation> </component> <component> <observation moodCode="EVN" classCode="OBS"> <templateId root= "216.840.1.546247.10..22.4.2" /> <id nullFlavor="NA" /> < code codeSystem="local" code="49856290" displayName="BASOPHILS" /> < statusCode code="completed" /> <effectiveTime value="" /> <value unit="%" xsi:type="PQ" value="0.2" /> < referenceRange> <observationRange> <text>NRG</text> </observationRange> </referenceRange> </observation> </component> </organizer> </entry> <entry> <organizer moodCode="EVN" classCode="BATTERY"> <templateId root="2.16.840.1.685219.10.20.22.4.1" /> <id nullFlavor="NA" /> <code codeSystem="local" code="27643-5" displayName="Serum or plasma glucose measurement 3 hours post challenge (mass/ volume)" /> <statusCode code="completed" /> <component> < observation moodCode="EVN" classCode="OBS"> <templateId root= "16.840.1.056108.10.4.2" /> <id nullFlavor="NA" /> < code codeSystem="local" code="47368-9" displayName="Serum or plasma glucose measurement 3 hours post challenge (mass/volume)" /> <statusCode code= "completed" /> <effectiveTime value="168073801189" /> <value unit="" xsi:type="PQ" value="" /> <interpretationCode codeSystem="local " code="" /> <referenceRange> <observationRange> <text>NRG</text> </observationRange> </referenceRange> </observation> </component> </organizer> </entry> <entry> < organizer moodCode="EVN" classCode="BATTERY"> <templateId root= "03.31.840.1.596319.12.02.21.4.1" /> <id nullFlavor="NA" /> <code codeSystem="local" code="690" displayName="CULTURE, CHLAMYDIA" /> < statusCode code="completed" /> <component> <observation moodCode= "EVN" classCode="OBS"> <templateId root="16.840.1.008150.12.02.21.4.2 " /> <id nullFlavor="NA" /> <code codeSystem="local" code= "88146575" displayName="SOURCE:" /> <statusCode code="completed" /> <effectiveTime value="484177497728" /> <value unit="" xsi:type= "PQ" value="CERVICAL" /> <referenceRange> <observationRange > <text>NRG</text> </observationRange> </ referenceRange> </observation> </component> <component> <observation moodCode="EVN" classCode="OBS"> <templateId root= "16.840.1.001907.10.22.4.2" /> <id nullFlavor="NA" /> < code codeSystem="local" code="32182311" displayName="C. TRACHOMATIS CULTURE" /> <statusCode code="completed" /> <effectiveTime value= "529671170823" /> <value unit="" xsi:type="PQ" value="NOT ISOLATED" /> <referenceRange> <observationRange> <text>NRG< /text> </observationRange> </referenceRange> </ observation> </component> </organizer> </entry> <entry> <organizer moodCode="EVN" classCode="BATTERY"> <templateId root= "03.31.840.1.618753.10..4.1" /> <id nullFlavor="NA" /> <code codeSystem="local" code="5617" displayName="CULTURE, GROUP B STREP (VAGINAL)" / > <statusCode code="completed" /> <component> <observation moodCode="EVN" classCode="OBS"> <templateId root= "03.31.840.1.419852.10..4.2" /> <id nullFlavor="NA" /> < code codeSystem="local" code="29569883" displayName="STREPTOCOCCUS, GROUP B CULTURE" /> <statusCode code="completed" /> <effectiveTime value="412237457759" /> <value unit="" xsi:type="PQ" value="SEE NOTE" / > <interpretationCode codeSystem="local" code="*" /> < referenceRange> <observationRange> <text>NRG</text> </observationRange> </referenceRange> </observation> </component> </organizer> </entry> <entry> <organizer moodCode="EVN" classCode="BATTERY"> <templateId root="2.16.840.1.183043.10..22.4.1" /> <id nullFlavor="NA" /> <code codeSystem="local" code="32695-8" displayName="Complete blood count (CBC) with automated white blood cell (WBC) differential" /> <statusCode code="completed" /> <component> < observation moodCode="EVN" classCode="OBS"> <templateId root= "2.16.840.1.430943.10..22.4.2" /> <id nullFlavor="NA" /> < code codeSystem="local" code="6690-2" displayName="Blood leukocytes automated count (number/volume)" /> <statusCode code="completed" /> < effectiveTime value="667180022314" /> <value unit="10*3/uL" xsi:type= "PQ" value="14.2" /> <interpretationCode codeSystem="local" code="" / > <referenceRange> <observationRange> <text>4.3 -11.0</text> </observationRange> </referenceRange> </ observation> </component> <component> <observation moodCode= "EVN" classCode="OBS"> <templateId root="2.16.840.1.772622.10..22.4.2 " /> <id nullFlavor="NA" /> <code codeSystem="local" code="789 -8" displayName="Blood erythrocytes automated count (number/volume)" /> <statusCode code="completed" /> <effectiveTime value="460797107416" / > <value unit="10*6/uL" xsi:type="PQ" value="4.83" /> < referenceRange> <observationRange> <text>4.35-5.85</text > </observationRange> </referenceRange> </observation > </component> <component> <observation moodCode="EVN" classCode="OBS"> <templateId root="2.16.840.1.962248.10.20.22.4.2" /> <id nullFlavor="NA" /> <code codeSystem="local" code="57274-3 " displayName="Venous blood hemoglobin measurement (mass/volume)" /> < statusCode code="completed" /> <effectiveTime value="263887721584" /> <value unit="g/dL" xsi:type="PQ" value="12.7" /> < referenceRange> <observationRange> <text>11.5-16.0</text > </observationRange> </referenceRange> </observation > </component> <component> <observation moodCode="EVN" classCode="OBS"> <templateId root="03.31.840.1.396932.10.20.22.4.2" /> <id nullFlavor="NA" /> <code codeSystem="local" code="41963-7 " displayName="Blood hematocrit (volume fraction)" /> <statusCode code= "completed" /> <effectiveTime value="237551628216" /> <value unit="%" xsi:type="PQ" value="37" /> <referenceRange> < observationRange> <text>35-52</text> </observationRange > </referenceRange> </observation> </component> < component> <observation moodCode="EVN" classCode="OBS"> < templateId root="216.840.1.995065.10.20.22.4.2" /> <id nullFlavor="NA " /> <code codeSystem="local" code="787-2" displayName="Automated erythrocyte mean corpuscular volume" /> <statusCode code="completed" / > <effectiveTime value="096336293936" /> <value unit="[fo_us] " xsi:type="PQ" value="77" /> <interpretationCode codeSystem="local" code="" /> <referenceRange> <observationRange> <text>80-99</text> </observationRange> </referenceRange> </observation> </component> <component> <observation moodCode="EVN" classCode="OBS"> <templateId root= "2.16.840.1.290746.10.20.22.4.2" /> <id nullFlavor="NA" /> < code codeSystem="local" code="785-6" displayName="Automated erythrocyte mean corpuscular hemoglobin (mass per erythrocyte)" /> <statusCode code= "completed" /> <effectiveTime value="" /> <value unit="pg" xsi:type="PQ" value="26" /> <referenceRange> < observationRange> <text>25-34</text> </observationRange > </referenceRange> </observation> </component> < component> <observation moodCode="EVN" classCode="OBS"> < templateId root="2.16.840.1.930902.10.20.22.4.2" /> <id nullFlavor="NA " /> <code codeSystem="local" code="786-4" displayName="Automated erythrocyte mean corpuscular hemoglobin concentration measurement (mass/volume) " /> <statusCode code="completed" /> <effectiveTime value= "" /> <value unit="g/dL" xsi:type="PQ" value="34" /> <referenceRange> <observationRange> <text>32-36</ text> </observationRange> </referenceRange> </ observation> </component> <component> <observation moodCode= "EVN" classCode="OBS"> <templateId root="2.16.840.1.464160.10..22.4.2 " /> <id nullFlavor="NA" /> <code codeSystem="local" code="788 -0" displayName="Automated erythrocyte distribution width ratio" /> < statusCode code="completed" /> <effectiveTime value="134613317690" /> <value unit="%" xsi:type="PQ" value="15.0" /> < interpretationCode codeSystem="local" code="" /> <referenceRange> <observationRange> <text>10.0-14.5</text> </ observationRange> </referenceRange> </observation> </ component> <component> <observation moodCode="EVN" classCode="OBS"> <templateId root="216.840.1.715235.10..4.2" /> <id nullFlavor="NA" /> <code codeSystem="local" code="777-3" displayName= "Automated blood platelet count (count/volume)" /> <statusCode code= "completed" /> <effectiveTime value="197404113477" /> <value unit="10*3/uL" xsi:type="PQ" value="263" /> <referenceRange> <observationRange> <text>130-400</text> </ observationRange> </referenceRange> </observation> </ component> <component> <observation moodCode="EVN" classCode="OBS"> <templateId root="2.16.840.1.787597.10..22.4.2" /> <id nullFlavor="NA" /> <code codeSystem="local" code="60683-8" displayName= "Automated blood platelet mean volume measurement" /> <statusCode code= "completed" /> <effectiveTime value="398396236183" /> <value unit="[chi [facility]_us]" xsi:type="PQ" value="12.4" /> <interpretationCode codeSystem="local" code="" /> <referenceRange> < observationRange> <text>7.4-10.4</text> </ observationRange> </referenceRange> </observation> </ component> <component> <observation moodCode="EVN" classCode="OBS"> <templateId root="2.16.840.1.025781.10.20.22.4.2" /> <id nullFlavor="NA" /> <code codeSystem="local" code="770-8" displayName= "Automated blood neutrophils/100 leukocytes" /> <statusCode code= "completed" /> <effectiveTime value="080257984873" /> <value unit="%" xsi:type="PQ" value="75" /> <referenceRange> < observationRange> <text>42-75</text> </observationRange > </referenceRange> </observation> </component> < component> <observation moodCode="EVN" classCode="OBS"> < templateId root="2.16.840.1.777235.10.20.22.4.2" /> <id nullFlavor="NA " /> <code codeSystem="local" code="736-9" displayName="Automated blood lymphocytes/100 leukocytes" /> <statusCode code="completed" /> <effectiveTime value="775598025972" /> <value unit="%" xsi: type="PQ" value="17" /> <referenceRange> <observationRange> <text>12-44</text> </observationRange> </ referenceRange> </observation> </component> <component> <observation moodCode="EVN" classCode="OBS"> <templateId root= "216.840.1.657030.10..22.4.2" /> <id nullFlavor="NA" /> < code codeSystem="local" code="48976-6" displayName="Blood monocytes/100 leukocytes" /> <statusCode code="completed" /> <effectiveTime value="413259509044" /> <value unit="%" xsi:type="PQ" value="8" /> <referenceRange> <observationRange> <text>0-12 </text> </observationRange> </referenceRange> </ observation> </component> <component> <observation moodCode= "EVN" classCode="OBS"> <templateId root="216.840.1.453208.10...4.2 " /> <id nullFlavor="NA" /> <code codeSystem="local" code="713 -8" displayName="Automated blood eosinophils/100 leukocytes" /> < statusCode code="completed" /> <effectiveTime value="325892460943" /> <value unit="%" xsi:type="PQ" value="1" /> <referenceRange > <observationRange> <text>0-10</text> </ observationRange> </referenceRange> </observation> </ component> <component> <observation moodCode="EVN" classCode="OBS"> <templateId root="216.840.1.939418.10.22.4.2" /> <id nullFlavor="NA" /> <code codeSystem="local" code="706-2" displayName= "Automated blood basophils/100 leukocytes" /> <statusCode code= "completed" /> <effectiveTime value="650752576433" /> <value unit="%" xsi:type="PQ" value="0" /> <referenceRange> < observationRange> <text>0-10</text> </observationRange> </referenceRange> </observation> </component> < component> <observation moodCode="EVN" classCode="OBS"> < templateId root="216.840.1.340916.10.20.22.4.2" /> <id nullFlavor="NA " /> <code codeSystem="local" code="751-8" displayName="Blood neutrophils automated count (number/volume)" /> <statusCode code= "completed" /> <effectiveTime value="819588798654" /> <value unit="10*3" xsi:type="PQ" value="10.7" /> <interpretationCode codeSystem="local" code="" /> <referenceRange> < observationRange> <text>1.8-7.8</text> </ observationRange> </referenceRange> </observation> </ component> <component> <observation moodCode="EVN" classCode="OBS"> <templateId root="03.31.840.1.105903.102022.4.2" /> <id nullFlavor="NA" /> <code codeSystem="local" code="731-0" displayName= "Blood lymphocytes automated count (number/volume)" /> <statusCode code ="completed" /> <effectiveTime value="497243767937" /> <value unit="10*3" xsi:type="PQ" value="2.4" /> <referenceRange> < observationRange> <text>1.0-4.0</text> </ observationRange> </referenceRange> </observation> </ component> <component> <observation moodCode="EVN" classCode="OBS"> <templateId root="03.31.840.1.595562.10.20.22.4.2" /> <id nullFlavor="NA" /> <code codeSystem="local" code="742-7" displayName= "Blood monocytes automated count (number/volume)" /> <statusCode code= "completed" /> <effectiveTime value="766011993007" /> <value unit="10*3" xsi:type="PQ" value="1.1" /> <interpretationCode codeSystem ="local" code="" /> <referenceRange> <observationRange> <text>0.0-1.0</text> </observationRange> </ referenceRange> </observation> </component> <component> <observation moodCode="EVN" classCode="OBS"> <templateId root= "2.16.840.1.940081.10..22.4.2" /> <id nullFlavor="NA" /> < code codeSystem="local" code="711-2" displayName="Automated eosinophil count" / > <statusCode code="completed" /> <effectiveTime value= "" /> <value unit="10*3/uL" xsi:type="PQ" value="0.1" /> <referenceRange> <observationRange> <text>0.0- 0.3</text> </observationRange> </referenceRange> </ observation> </component> <component> <observation moodCode= "EVN" classCode="OBS"> <templateId root="2.16.840.1.811132.10..22.4.2 " /> <id nullFlavor="NA" /> <code codeSystem="local" code="704 -7" displayName="Automated blood basophil count (count/volume)" /> < statusCode code="completed" /> <effectiveTime value="" /> <value unit="10*3/uL" xsi:type="PQ" value="0.0" /> < referenceRange> <observationRange> <text>0.0-0.1</text> </observationRange> </referenceRange> </observation > </component> </organizer> </entry> <entry> <organizer moodCode= "EVN" classCode="BATTERY"> <templateId root="2.16.840.1.651362.10..22.4.1 " /> <id nullFlavor="NA" /> <code codeSystem="local" code="50704-4" displayName="Blood manual differential performed detection" /> <statusCode code="completed" /> <component> <observation moodCode="EVN" classCode="OBS"> <templateId root="2.16.840.1.821027.10..22.4.2" /> <id nullFlavor="NA" /> <code codeSystem="local" code="91962-7 " displayName="Blood monocytes/100 leukocytes" /> <statusCode code= "completed" /> <effectiveTime value="234922884093" /> <value unit="%" xsi:type="PQ" value="6" /> <referenceRange> < observationRange> <text>NRG</text> </observationRange> </referenceRange> </observation> </component> < component> <observation moodCode="EVN" classCode="OBS"> < templateId root="2.16.840.1.947473.10..22.4.2" /> <id nullFlavor="NA " /> <code codeSystem="local" code="769-0" displayName="Manual blood segmented neutrophils/100 leukocytes" /> <statusCode code="completed" / > <effectiveTime value="961070578740" /> <value unit="%" xsi:type="PQ" value="77" /> <referenceRange> < observationRange> <text>NRG</text> </observationRange> </referenceRange> </observation> </component> < component> <observation moodCode="EVN" classCode="OBS"> < templateId root="16.840.1.043982.10.20.22.4.2" /> <id nullFlavor="NA " /> <code codeSystem="local" code="58741-8" displayName="Blood band neutrophils/100 leukocytes" /> <statusCode code="completed" /> <effectiveTime value="" /> <value unit="%" xsi:type= "PQ" value="0" /> <referenceRange> <observationRange> <text>NRG</text> </observationRange> </ referenceRange> </observation> </component> <component> <observation moodCode="EVN" classCode="OBS"> <templateId root= "16.840.1.494206.10..22.4.2" /> <id nullFlavor="NA" /> < code codeSystem="local" code="737-7" displayName="Manual blood lymphocytes/100 leukocytes" /> <statusCode code="completed" /> <effectiveTime value="" /> <value unit="%" xsi:type="PQ" value="15" / > <referenceRange> <observationRange> <text>NRG </text> </observationRange> </referenceRange> </ observation> </component> <component> <observation moodCode= "EVN" classCode="OBS"> <templateId root="03.31.840.1.890733.10.20.22.4.2 " /> <id nullFlavor="NA" /> <code codeSystem="local" code= "9727-9" displayName="Manual eosinophils/100 leukocytes in nose" /> < statusCode code="completed" /> <effectiveTime value="468642824103" /> <value unit="%" xsi:type="PQ" value="1" /> <referenceRange > <observationRange> <text>NRG</text> </ observationRange> </referenceRange> </observation> </ component> <component> <observation moodCode="EVN" classCode="OBS"> <templateId root="216.840.1.490413.10..22.4.2" /> <id nullFlavor="NA" /> <code codeSystem="local" code="707-0" displayName= "Manual blood basophils/100 leukocytes" /> <statusCode code="completed " /> <effectiveTime value="167265745835" /> <value unit="% " xsi:type="PQ" value="1" /> <referenceRange> < observationRange> <text>NRG</text> </observationRange> </referenceRange> </observation> </component> < component> <observation moodCode="EVN" classCode="OBS"> < templateId root="03.31.840.1.434603.10..4.2" /> <id nullFlavor="NA " /> <code codeSystem="local" code="6742-1" displayName="Blood erythrocyte morphology finding identification" /> <statusCode code= "completed" /> <effectiveTime value="742107200574" /> <value unit="" xsi:type="PQ" value="NORMAL" /> <referenceRange> < observationRange> <text>NRG</text> </observationRange> </referenceRange> </observation> </component> </ organizer> </entry> <entry> <organizer moodCode="EVN" classCode="BATTERY"> <templateId root="16.840.1.428005.10..22.4.1" /> <id nullFlavor= "NA" /> <code codeSystem="local" code="84939-7" displayName="Blood type T Indirect antibody screen panel" /> <statusCode code="completed" /> < component> <observation moodCode="EVN" classCode="OBS"> < templateId root="216.840.1.633134.10..22.4.2" /> <id nullFlavor="NA " /> <code codeSystem="local" code="882-1" displayName="ABO+Rh group" / > <statusCode code="completed" /> <effectiveTime value= "088621600885" /> <value unit="" xsi:type="PQ" value="OP" /> < referenceRange> <observationRange> <text>NRG</text> </observationRange> </referenceRange> </observation> </component> <component> <observation moodCode="EVN" classCode= "OBS"> <templateId root="216.840.1.942841.10...4.2" /> < id nullFlavor="NA" /> <code codeSystem="local" code="97970-0" displayName="Transfusion band number" /> <statusCode code="completed" / > <effectiveTime value="909614994681" /> <value unit="" xsi: type="PQ" value="T649809" /> <referenceRange> < observationRange> <text>NRG</text> </observationRange> </referenceRange> </observation> </component> < component> <observation moodCode="EVN" classCode="OBS"> < templateId root="16.840.1.507049.10..22.4.2" /> <id nullFlavor="NA " /> <code codeSystem="local" code="890-4" displayName="Blood group antibody screen" /> <statusCode code="completed" /> < effectiveTime value="344332906370" /> <value unit="" xsi:type="PQ" value="NEGATIVE" /> <referenceRange> <observationRange> <text>NRG</text> </observationRange> </ referenceRange> </observation> </component> </organizer> </entry > <entry> <organizer moodCode="EVN" classCode="BATTERY"> <templateId root="2.16.840.1.555264.10..22.4.1" /> <id nullFlavor="NA" /> <code codeSystem="local" code="05942-1" displayName="Comprehensive metabolic panel" / > <statusCode code="completed" /> <component> <observation moodCode="EVN" classCode="OBS"> <templateId root= "2.16.840.1.790420.10...4.2" /> <id nullFlavor="NA" /> < code codeSystem="local" code="2951-2" displayName="Serum or plasma sodium measurement (moles/volume)" /> <statusCode code="completed" /> <effectiveTime value="377907876028" /> <value unit="mmol/L" xsi:type= "PQ" value="136" /> <referenceRange> <observationRange> <text>135-145</text> </observationRange> </ referenceRange> </observation> </component> <component> <observation moodCode="EVN" classCode="OBS"> <templateId root= "2.16.840.1.829091.10.22.4.2" /> <id nullFlavor="NA" /> < code codeSystem="local" code="2823-3" displayName="Serum or plasma potassium measurement (moles/volume)" /> <statusCode code="completed" /> <effectiveTime value="924014368684" /> <value unit="mmol/L" xsi:type= "PQ" value="3.7" /> <referenceRange> <observationRange> <text>3.6-5.0</text> </observationRange> </ referenceRange> </observation> </component> <component> <observation moodCode="EVN" classCode="OBS"> <templateId root= "03.31.840.1.648382.10..22.4.2" /> <id nullFlavor="NA" /> < code codeSystem="local" code="" displayName="Serum or plasma chloride measurement (moles/volume)" /> <statusCode code="completed" /> <effectiveTime value="737873546140" /> <value unit="mmol/L" xsi:type= "PQ" value="108" /> <interpretationCode codeSystem="local" code="" / > <referenceRange> <observationRange> <text>98- 107</text> </observationRange> </referenceRange> </ observation> </component> <component> <observation moodCode= "EVN" classCode="OBS"> <templateId root="03.31.840.1.986077.10.22.4.2 " /> <id nullFlavor="NA" /> <code codeSystem="local" code= "2027-10" displayName="Carbon dioxide" /> <statusCode code="completed" / > <effectiveTime value="065760677493" /> <value unit="mmol/L" xsi:type="PQ" value="19" /> <interpretationCode codeSystem="local" code ="" /> <referenceRange> <observationRange> < text>21-32</text> </observationRange> </referenceRange> </observation> </component> <component> <observation moodCode="EVN" classCode="OBS"> <templateId root= "03.31.840.1.940662.10.20.22.4.2" /> <id nullFlavor="NA" /> < code codeSystem="local" code="48061-4" displayName="Serum or plasma anion gap determination (moles/volume)" /> <statusCode code="completed" /> <effectiveTime value="743162672199" /> <value unit="mmol/L" xsi: type="PQ" value="9" /> <referenceRange> <observationRange> <text>5-14</text> </observationRange> </ referenceRange> </observation> </component> <component> <observation moodCode="EVN" classCode="OBS"> <templateId root= "2.16.840.1.064661.10.20.22.4.2" /> <id nullFlavor="NA" /> < code codeSystem="local" code="3094-0" displayName="Serum or plasma urea nitrogen measurement (mass/volume)" /> <statusCode code="completed" /> <effectiveTime value="219200437779" /> <value unit="mg/dL" xsi:type="PQ" value="9" /> <referenceRange> < observationRange> <text>7-18</text> </observationRange> </referenceRange> </observation> </component> < component> <observation moodCode="EVN" classCode="OBS"> < templateId root="2.16.840.1.346968.10.20.22.4.2" /> <id nullFlavor="NA " /> <code codeSystem="local" code="2160-0" displayName="Serum or plasma creatinine measurement (mass/volume)" /> <statusCode code= "completed" /> <effectiveTime value="373098745370" /> <value unit="mg/dL" xsi:type="PQ" value="0.61" /> <referenceRange> <observationRange> <text>0.60-1.30</text> </ observationRange> </referenceRange> </observation> </ component> <component> <observation moodCode="EVN" classCode="OBS"> <templateId root="216.840.1.874622.10.20.22.4.2" /> <id nullFlavor="NA" /> <code codeSystem="local" code="3097-3" displayName= "Serum or plasma urea nitrogen/creatinine mass ratio" /> <statusCode code="completed" /> <effectiveTime value="293148415973" /> < value unit="" xsi:type="PQ" value="15" /> <referenceRange> < observationRange> <text>NRG</text> </observationRange> </referenceRange> </observation> </component> < component> <observation moodCode="EVN" classCode="OBS"> < templateId root="216.840.1.318952.10..22.4.2" /> <id nullFlavor="NA " /> <code codeSystem="local" code="63500-0" displayName="Serum or plasma creatinine measurement with calculation of estimated glomerular filtration rate" /> <statusCode code="completed" /> < effectiveTime value="492245951997" /> <value unit="" xsi:type="PQ" value=">" /> <referenceRange> <observationRange> <text>NRG</text> </observationRange> </referenceRange > </observation> </component> <component> <observation moodCode="EVN" classCode="OBS"> <templateId root= "216.840.1.141976.10.20.22.4.2" /> <id nullFlavor="NA" /> < code codeSystem="local" code="2345-7" displayName="Serum or plasma glucose measurement (mass/volume)" /> <statusCode code="completed" /> <effectiveTime value="801904725386" /> <value unit="mg/dL" xsi:type="PQ " value="136" /> <interpretationCode codeSystem="local" code="" /> <referenceRange> <observationRange> <text>70-105 </text> </observationRange> </referenceRange> </ observation> </component> <component> <observation moodCode= "EVN" classCode="OBS"> <templateId root="2.16.840.1.367687.10.20.22.4.2 " /> <id nullFlavor="NA" /> <code codeSystem="local" code= "99644-8" displayName="Serum or plasma calcium measurement (mass/volume)" /> <statusCode code="completed" /> <effectiveTime value= "414050489564" /> <value unit="mg/dL" xsi:type="PQ" value="8.6" /> <referenceRange> <observationRange> <text>8.5-10.1 </text> </observationRange> </referenceRange> </ observation> </component> <component> <observation moodCode= "EVN" classCode="OBS"> <templateId root="216.840.1.775295.10...4.2 " /> <id nullFlavor="NA" /> <code codeSystem="local" code= "1974-03" displayName="Serum or plasma total bilirubin measurement (mass/volume) " /> <statusCode code="completed" /> <effectiveTime value= "180896930279" /> <value unit="mg/dL" xsi:type="PQ" value="0.2" /> <referenceRange> <observationRange> <text>0.1-1.0< /text> </observationRange> </referenceRange> </ observation> </component> <component> <observation moodCode= "EVN" classCode="OBS"> <templateId root="2.16.840.1.115775.10..22.4.2 " /> <id nullFlavor="NA" /> <code codeSystem="local" code= "6768-" displayName="Serum or plasma alkaline phosphatase measurement ( enzymatic activity/volume)" /> <statusCode code="completed" /> <effectiveTime value="380131982603" /> <value unit="U/L" xsi:type="PQ " value="78" /> <referenceRange> <observationRange> <text>40-136</text> </observationRange> </ referenceRange> </observation> </component> <component> <observation moodCode="EVN" classCode="OBS"> <templateId root= "2.16.840.1.311454.10.20.22.4.2" /> <id nullFlavor="NA" /> < code codeSystem="local" code="192" displayName="Serum or plasma aspartate aminotransferase measurement (enzymatic activity/volume)" /> < statusCode code="completed" /> <effectiveTime value="369158853803" /> <value unit="U/L" xsi:type="PQ" value="14" /> <referenceRange > <observationRange> <text>5-34</text> </ observationRange> </referenceRange> </observation> </ component> <component> <observation moodCode="EVN" classCode="OBS"> <templateId root="2.16.840.1.099683.10.20.22.4.2" /> <id nullFlavor="NA" /> <code codeSystem="local" code="17403-21" displayName= "Serum or plasma alanine aminotransferase measurement (enzymatic activity/volume )" /> <statusCode code="completed" /> <effectiveTime value= "744814836938" /> <value unit="U/L" xsi:type="PQ" value="17" /> <referenceRange> <observationRange> <text>0-55</text > </observationRange> </referenceRange> </observation > </component> <component> <observation moodCode="EVN" classCode="OBS"> <templateId root="2.16.840.1.661973.10..22.4.2" /> <id nullFlavor="NA" /> <code codeSystem="local" code="2885-2" displayName="Serum or plasma protein measurement (mass/volume)" /> < statusCode code="completed" /> <effectiveTime value="572237368810" /> <value unit="g/dL" xsi:type="PQ" value="6.2" /> < interpretationCode codeSystem="local" code="" /> <referenceRange> <observationRange> <text>6.4-8.2</text> </ observationRange> </referenceRange> </observation> </ component> <component> <observation moodCode="EVN" classCode="OBS"> <templateId root="216.840.1.832699.10..22.4.2" /> <id nullFlavor="NA" /> <code codeSystem="local" code="1751-7" displayName= "Serum or plasma albumin measurement (mass/volume)" /> <statusCode code ="completed" /> <effectiveTime value="489015177735" /> <value unit="g/dL" xsi:type="PQ" value="3.2" /> <referenceRange> < observationRange> <text>3.2-4.5</text> </ observationRange> </referenceRange> </observation> </ component> </organizer> </entry> <entry> <organizer moodCode="EVN" classCode="BATTERY"> <templateId root="2.16.840.1.903489.10.20.22.4.1" /> <id nullFlavor="NA" /> <code codeSystem="local" code="30805-14" displayName="Serum or plasma uric acid measurement (mass/volume)" /> < statusCode code="completed" /> <component> <observation moodCode= "EVN" classCode="OBS"> <templateId root="2.16.840.1.662339.10.20.22.4.2 " /> <id nullFlavor="NA" /> <code codeSystem="local" code= "3083-02" displayName="Serum or plasma uric acid measurement (mass/volume)" /> <statusCode code="completed" /> <effectiveTime value= "124283757410" /> <value unit="mg/dL" xsi:type="PQ" value="4.9" /> <referenceRange> <observationRange> <text>2.6-7.2< /text> </observationRange> </referenceRange> </ observation> </component> </organizer> </entry> <entry> <organizer moodCode="EVN" classCode="BATTERY"> <templateId root= "2.16.840.1.692403.10.20.22.4.1" /> <id nullFlavor="NA" /> <code codeSystem="local" code="25379" displayName="Lactate dehydrogenase 1 [ enzymatic activity/volume] in serum or plasma" /> <statusCode code= "completed" /> <component> <observation moodCode="EVN" classCode= "OBS"> <templateId root="216.840.1.079399.10.20.22.4.2" /> < id nullFlavor="NA" /> <code codeSystem="local" code="2537" displayName="Lactate dehydrogenase 1 [enzymatic activity/volume] in serum or plasma" /> <statusCode code="completed" /> <effectiveTime value="511369291930" /> <value unit="U/L" xsi:type="PQ" value="127" /> <referenceRange> <observationRange> <text>125- 220</text> </observationRange> </referenceRange> </ observation> </component> </organizer> </entry> <entry> <organizer moodCode="EVN" classCode="BATTERY"> <templateId root= "2.16.840.1.976173.10.20.22.4.1" /> <id nullFlavor="NA" /> <code codeSystem="local" code="2890-2" displayName="Urine protein/creatinine mass ratio" /> <statusCode code="completed" /> <component> < observation moodCode="EVN" classCode="OBS"> <templateId root= "2.16.840.1.872807.10..22.4.2" /> <id nullFlavor="NA" /> < code codeSystem="local" code="2888-6" displayName="Urine protein measurement ( mass/volume)" /> <statusCode code="completed" /> < effectiveTime value="698746332065" /> <value unit="mg/dL" xsi:type="PQ " value="<" /> <interpretationCode codeSystem="local" code="" /> <referenceRange> <observationRange> <text>6-12< /text> </observationRange> </referenceRange> </ observation> </component> <component> <observation moodCode= "EVN" classCode="OBS"> <templateId root="216.840.1.500319.10..22.4.2 " /> <id nullFlavor="NA" /> <code codeSystem="local" code= "2161-8" displayName="Urine creatinine measurement (mass/volume)" /> < statusCode code="completed" /> <effectiveTime value="322502879624" /> <value unit="mg/dL" xsi:type="PQ" value="55" /> < referenceRange> <observationRange> <text>30-125</text> </observationRange> </referenceRange> </observation> </component> <component> <observation moodCode="EVN" classCode ="OBS"> <templateId root="16.840.1.994749.10.20.22.4.2" /> < id nullFlavor="NA" /> <code codeSystem="local" code="2890-2" displayName="Urine protein/creatinine mass ratio" /> <statusCode code= "completed" /> <effectiveTime value="096592016497" /> <value unit="" xsi:type="PQ" value="TNP" /> <referenceRange> < observationRange> <text>NRG</text> </observationRange> </referenceRange> </observation> </component> </ organizer> </entry> <entry> <organizer moodCode="EVN" classCode="BATTERY"> <templateId root="16.840.1.116825.10.20.22.4.1" /> <id nullFlavor= "NA" /> <code codeSystem="local" code="33660-1" displayName="Complete blood count (CBC) with automated white blood cell (WBC) differential" /> < statusCode code="completed" /> <component> <observation moodCode= "EVN" classCode="OBS"> <templateId root="03.31.840.1.432316.10.20.22.4.2 " /> <id nullFlavor="NA" /> <code codeSystem="local" code= "6690-2" displayName="Blood leukocytes automated count (number/volume)" /> <statusCode code="completed" /> <effectiveTime value="158188152452 " /> <value unit="10*3/uL" xsi:type="PQ" value="12.2" /> < interpretationCode codeSystem="local" code="" /> <referenceRange> <observationRange> <text>4.3-11.0</text> </ observationRange> </referenceRange> </observation> </ component> <component> <observation moodCode="EVN" classCode="OBS"> <templateId root="216.840.1.800010.10.20.22.4.2" /> <id nullFlavor="NA" /> <code codeSystem="local" code="789-8" displayName= "Blood erythrocytes automated count (number/volume)" /> <statusCode code="completed" /> <effectiveTime value="086044857407" /> < value unit="10*6/uL" xsi:type="PQ" value="4.07" /> <interpretationCode codeSystem="local" code="" /> <referenceRange> < observationRange> <text>4.35-5.85</text> </ observationRange> </referenceRange> </observation> </ component> <component> <observation moodCode="EVN" classCode="OBS"> <templateId root="16.840.1.178228.10.20.22.4.2" /> <id nullFlavor="NA" /> <code codeSystem="local" code="69049-9" displayName= "Venous blood hemoglobin measurement (mass/volume)" /> <statusCode code ="completed" /> <effectiveTime value="716900182352" /> <value unit="g/dL" xsi:type="PQ" value="10.7" /> <interpretationCode codeSystem="local" code="" /> <referenceRange> < observationRange> <text>11.5-16.0</text> </ observationRange> </referenceRange> </observation> </ component> <component> <observation moodCode="EVN" classCode="OBS"> <templateId root="03.31.840.1.087746.10..22.4.2" /> <id nullFlavor="NA" /> <code codeSystem="local" code="57084-9" displayName= "Blood hematocrit (volume fraction)" /> <statusCode code="completed" / > <effectiveTime value="266986943414" /> <value unit="%" xsi:type="PQ" value="32" /> <interpretationCode codeSystem="local" code ="" /> <referenceRange> <observationRange> < text>35-52</text> </observationRange> </referenceRange> </observation> </component> <component> <observation moodCode="EVN" classCode="OBS"> <templateId root= "03.31.840.1.968700.10.22.4.2" /> <id nullFlavor="NA" /> < code codeSystem="local" code="787-2" displayName="Automated erythrocyte mean corpuscular volume" /> <statusCode code="completed" /> < effectiveTime value="377412127639" /> <value unit="[foz_us]" xsi:type= "PQ" value="79" /> <interpretationCode codeSystem="local" code="" /> <referenceRange> <observationRange> <text>80- 99</text> </observationRange> </referenceRange> </ observation> </component> <component> <observation moodCode= "EVN" classCode="OBS"> <templateId root="03.31.840.1.074489.10.20.22.4.2 " /> <id nullFlavor="NA" /> <code codeSystem="local" code="785 -6" displayName="Automated erythrocyte mean corpuscular hemoglobin (mass per erythrocyte)" /> <statusCode code="completed" /> < effectiveTime value="" /> <value unit="pg" xsi:type="PQ" value="26" /> <referenceRange> <observationRange> <text>25-34</text> </observationRange> </referenceRange > </observation> </component> <component> <observation moodCode="EVN" classCode="OBS"> <templateId root= "2.16.840.1.700859.10..22.4.2" /> <id nullFlavor="NA" /> < code codeSystem="local" code="786-4" displayName="Automated erythrocyte mean corpuscular hemoglobin concentration measurement (mass/volume)" /> < statusCode code="completed" /> <effectiveTime value="155394151032" /> <value unit="g/dL" xsi:type="PQ" value="33" /> <referenceRange > <observationRange> <text>32-36</text> </ observationRange> </referenceRange> </observation> </ component> <component> <observation moodCode="EVN" classCode="OBS"> <templateId root="2.16.840.1.852519.10..22.4.2" /> <id nullFlavor="NA" /> <code codeSystem="local" code="788-0" displayName= "Automated erythrocyte distribution width ratio" /> <statusCode code= "completed" /> <effectiveTime value="143579250672" /> <value unit="%" xsi:type="PQ" value="15.1" /> <interpretationCode codeSystem="local" code="" /> <referenceRange> < observationRange> <text>10.0-14.5</text> </ observationRange> </referenceRange> </observation> </ component> <component> <observation moodCode="EVN" classCode="OBS"> <templateId root="2.16.840.1.473604.10.20.22.4.2" /> <id nullFlavor="NA" /> <code codeSystem="local" code="777-3" displayName= "Automated blood platelet count (count/volume)" /> <statusCode code= "completed" /> <effectiveTime value="509467563592" /> <value unit="10*3/uL" xsi:type="PQ" value="193" /> <referenceRange> <observationRange> <text>130-400</text> </ observationRange> </referenceRange> </observation> </ component> <component> <observation moodCode="EVN" classCode="OBS"> <templateId root="2.16.840.1.150131.22.4.2" /> <id nullFlavor="NA" /> <code codeSystem="local" code="24238-5" displayName= "Automated blood platelet mean volume measurement" /> <statusCode code= "completed" /> <effectiveTime value="295248054193" /> <value unit="[foz_us]" xsi:type="PQ" value="11.7" /> <interpretationCode codeSystem="local" code="" /> <referenceRange> < observationRange> <text>7.4-10.4</text> </ observationRange> </referenceRange> </observation> </ component> <component> <observation moodCode="EVN" classCode="OBS"> <templateId root="2.16.840.1.921555.10..22.4.2" /> <id nullFlavor="NA" /> <code codeSystem="local" code="770-8" displayName= "Automated blood neutrophils/100 leukocytes" /> <statusCode code= "completed" /> <effectiveTime value="726108371327" /> <value unit="%" xsi:type="PQ" value="74" /> <referenceRange> < observationRange> <text>42-75</text> </observationRange > </referenceRange> </observation> </component> < component> <observation moodCode="EVN" classCode="OBS"> < templateId root="2.16.840.1.529510.10.20.22.4.2" /> <id nullFlavor="NA " /> <code codeSystem="local" code="736-9" displayName="Automated blood lymphocytes/100 leukocytes" /> <statusCode code="completed" /> <effectiveTime value="361933501118" /> <value unit="%" xsi: type="PQ" value="14" /> <referenceRange> <observationRange> <text>12-44</text> </observationRange> </ referenceRange> </observation> </component> <component> <observation moodCode="EVN" classCode="OBS"> <templateId root= "216.840.1.073449.10..22.4.2" /> <id nullFlavor="NA" /> < code codeSystem="local" code="55009-1" displayName="Blood monocytes/100 leukocytes" /> <statusCode code="completed" /> <effectiveTime value="668285487744" /> <value unit="%" xsi:type="PQ" value="12" / > <referenceRange> <observationRange> <text>0- 12</text> </observationRange> </referenceRange> </ observation> </component> <component> <observation moodCode= "EVN" classCode="OBS"> <templateId root="2.16.840.1.446532.10.20.22.4.2 " /> <id nullFlavor="NA" /> <code codeSystem="local" code="713 -8" displayName="Automated blood eosinophils/100 leukocytes" /> < statusCode code="completed" /> <effectiveTime value="953691945643" /> <value unit="%" xsi:type="PQ" value="1" /> <referenceRange > <observationRange> <text>0-10</text> </ observationRange> </referenceRange> </observation> </ component> <component> <observation moodCode="EVN" classCode="OBS"> <templateId root="2.16.840.1.395230.10.22.4.2" /> <id nullFlavor="NA" /> <code codeSystem="local" code="706-2" displayName= "Automated blood basophils/100 leukocytes" /> <statusCode code= "completed" /> <effectiveTime value="941680957951" /> <value unit="%" xsi:type="PQ" value="0" /> <referenceRange> < observationRange> <text>0-10</text> </observationRange> </referenceRange> </observation> </component> < component> <observation moodCode="EVN" classCode="OBS"> < templateId root="2.16.840.1.856788.10..4.2" /> <id nullFlavor="NA " /> <code codeSystem="local" code="751-8" displayName="Blood neutrophils automated count (number/volume)" /> <statusCode code= "completed" /> <effectiveTime value="522725087868" /> <value unit="10*3" xsi:type="PQ" value="9.0" /> <interpretationCode codeSystem ="local" code="" /> <referenceRange> <observationRange> <text>1.8-7.8</text> </observationRange> </ referenceRange> </observation> </component> <component> <observation moodCode="EVN" classCode="OBS"> <templateId root= "216.840.1.327406.10.2022.4.2" /> <id nullFlavor="NA" /> < code codeSystem="local" code="731-0" displayName="Blood lymphocytes automated count (number/volume)" /> <statusCode code="completed" /> < effectiveTime value="461028829800" /> <value unit="10*3" xsi:type="PQ" value="1.7" /> <referenceRange> <observationRange> <text>1.0-4.0</text> </observationRange> </ referenceRange> </observation> </component> <component> <observation moodCode="EVN" classCode="OBS"> <templateId root= "03.31.840.1.935785.102022.4.2" /> <id nullFlavor="NA" /> < code codeSystem="local" code="742-7" displayName="Blood monocytes automated count (number/volume)" /> <statusCode code="completed" /> < effectiveTime value="808623249402" /> <value unit="10*3" xsi:type="PQ" value="1.4" /> <interpretationCode codeSystem="local" code="" /> <referenceRange> <observationRange> <text>0.0-1.0< /text> </observationRange> </referenceRange> </ observation> </component> <component> <observation moodCode= "EVN" classCode="OBS"> <templateId root="16.840.1.641443.10.2022.4.2 " /> <id nullFlavor="NA" /> <code codeSystem="local" code="711 -2" displayName="Automated eosinophil count" /> <statusCode code= "completed" /> <effectiveTime value="" /> <value unit="10*3/uL" xsi:type="PQ" value="0.1" /> <referenceRange> <observationRange> <text>0.0-0.3</text> </ observationRange> </referenceRange> </observation> </ component> <component> <observation moodCode="EVN" classCode="OBS"> <templateId root="216.840.1.656021.10.4.2" /> <id nullFlavor="NA" /> <code codeSystem="local" code="704-7" displayName= "Automated blood basophil count (count/volume)" /> <statusCode code= "completed" /> <effectiveTime value="405813479278" /> <value unit="10*3/uL" xsi:type="PQ" value="0.0" /> <referenceRange> <observationRange> <text>0.0-0.1</text> </ observationRange> </referenceRange> </observation> </ component> </organizer> </entry> <entry> <organizer moodCode="EVN" classCode="BATTERY"> <templateId root="03.31.840.1.956440.12.02.21.4.1" /> <id nullFlavor="NA" /> <code codeSystem="local" code="62032" displayName="PDM - AMPHETAMINES W/ REFLEX d/l ISOMERS" /> <statusCode code= "completed" /> <component> <observation moodCode="EVN" classCode= "OBS"> <templateId root="16.840.1.524653.12.02.21.4.2" /> < id nullFlavor="NA" /> <code codeSystem="local" code="09338582" displayName="COMMENT" /> <statusCode code="completed" /> < effectiveTime value="313537945304" /> <value unit="" xsi:type="PQ" value="" /> <referenceRange> <observationRange> <text>NRG</text> </observationRange> </referenceRange> </observation> </component> <component> <observation moodCode="EVN" classCode="OBS"> <templateId root= "216.840.1.641482.10.20.22.4.2" /> <id nullFlavor="NA" /> < code codeSystem="local" code="95961892" displayName="Amphetamine" /> < statusCode code="completed" /> <effectiveTime value="432089807382" /> <value unit="ng/mL" xsi:type="PQ" value="3146" /> < interpretationCode codeSystem="local" code="*" /> <referenceRange> <observationRange> <text><250</text> </ observationRange> </referenceRange> </observation> </ component> <component> <observation moodCode="EVN" classCode="OBS"> <templateId root="03.31.840.1.129125.10..4.2" /> <id nullFlavor="NA" /> <code codeSystem="local" code="31926034" displayName ="medMATCH Amphetamine" /> <statusCode code="completed" /> < effectiveTime value="339725094299" /> <value unit="" xsi:type="PQ" value="INCONSISTENT" /> <referenceRange> <observationRange> <text>NRG</text> </observationRange> </ referenceRange> </observation> </component> <component> <observation moodCode="EVN" classCode="OBS"> <templateId root= "03.31.840.1.047053.10.2022.4.2" /> <id nullFlavor="NA" /> < code codeSystem="local" code="83306631" displayName="Methamphetamine" /> <statusCode code="completed" /> <effectiveTime value="681643841823" /> <value unit="ng/mL" xsi:type="PQ" value="NEGATIVE" /> < referenceRange> <observationRange> <text><250</text> </observationRange> </referenceRange> </observation > </component> <component> <observation moodCode="EVN" classCode="OBS"> <templateId root="2.16.840.1.849936.10.20.22.4.2" /> <id nullFlavor="NA" /> <code codeSystem="local" code="56015298 " displayName="medMATCH Methamphetamine" /> <statusCode code="completed " /> <effectiveTime value="464752046822" /> <value unit="" xsi :type="PQ" value="CONSISTENT" /> <referenceRange> < observationRange> <text>NRG</text> </observationRange> </referenceRange> </observation> </component> </ organizer> </entry></section> Encounters ACCT No. Visit Date/Time Discharge Status Pt. Type Provider Facility Loc./Unit Complaint [id number] 03/28/2014 13:00:00 03/28/2014 23:59:59 [facility] Outpatient RAI CASTLE [id number] 01/13/2014 09:58:00 01/13/2014 23:59:59 [facility] Outpatient RAI CASTLE [id number] 01/03/2014 08:54:00 01/03/2014 23:59:59 CLS Outpatient SONAL SOLANO, ARAMIS Pierre [id number] 12/18/2013 14:06:00 12/18/2013 23:59:59 CLS Outpatient LISBETH FORMAN APRN [id number] 09/26/2013 15:04:00 09/26/2013 23:59:59 CLS Outpatient LISBETH FORMAN APRN [id number] 03/19/2013 14:25:00 03/19/2013 23:59:59 CLS Outpatient LISBETH FORMAN APRN [id number] 02/17/2013 00:00:00 02/17/2013 23:59:59 CLS Outpatient HESHAM NGUYEN DDS [id number] 02/01/2013 16:04:00 02/01/2013 23:59:59 CLS Outpatient LISBETH FORMAN APRN [id number] 01/08/2013 15:07:00 01/08/2013 23:59:59 CLS Outpatient TERESE CORCORAN DO [id number] 09/29/2016 23:07:00 Document Registration [id number] 11/25/2016 03:07:00 Document Registration [id number] 04/01/2016 15:11:00 Document Registration [id number] 08/10/2017 11:20:00 08/10/2017 23:59:59 CLS Out[facility] [id number] 08/10/2017 11:20:00 Document Registration [id number] 04/12/2017 14:00:00 Document Registration [id number] 03/08/2017 14:00:00 Document Registration [id number] 01/24/2017 14:20:00 Document Registration [id number] 11/22/2016 14:00:00 Document Registration [id number] 09/28/2016 10:20:00 Document Registration [id number] 09/27/2016 15:00:00 Document Registration [id number] 06/27/2017 09:00:00 06/27/2017 23:59:59 CLS Preadmit EVERARDO HUNT MD [facility] RAD Z3A.33 [id number] 04/18/2017 08:52:00 06/26/2017 00:01:00 DIS Outpatient EVERARDO HUNT MD [facility] RAD Z3A.33 [id number] 04/19/2017 18:40:00 04/22/2017 17:35:00 DIS Outpatient EVERARDO HUNT MD [facility] LDRP INDUCTION [id number] 02/23/2017 11:40:00 02/23/2017 23:59:59 CLS Outpatient EVERARDO HUNT MD [facility] RAD O28.3 ABNORMAL US FINDING [id number] 02/19/2017 11:49:00 02/19/2017 23:59:59 CLS Outpatient EVERARDO HUNT MD [facility] LAB ABN GLUCOSE [id number] 01/03/2017 13:53:00 01/03/2017 23:59:59 CLS Outpatient EVERARDO HUNT MD [facility] RAD SURVEY [id number] 01/02/2017 10:16:00 01/02/2017 23:59:59 CLS Outpatient DONALD NATH MD [facility] RAD N63.10 [id number] 11/27/2016 23:13:00 11/28/2016 00:03:00 DIS Emergency DARREN DO, KIMMIE K [facility] ER VOMITNG COUGH SKIN FEELS HOT CHILLS 16 WK PG [id number] 10/10/2016 09:44:00 10/10/2016 23:59:59 CLS Outpatient EVERARDO HUNT MD [facility] RAD Z34.00 [id number] 09/26/2016 08:03:00 09/26/2016 08:27:00 DIS Emergency DARREN DO, KIMMIE K [facility] ER ALLERGIC REACTION [id number] 09/24/2016 13:27:00 09/24/2016 15:09:00 DIS Emergency TONYA AMARAL MD [facility] ER POSS ALLERGIC REACTION HIVES/ITCHING [id number] 06/05/2016 19:39:00 06/05/2016 20:21:00 DIS Emergency OLIVA AVILA APRN [facility] ER SORE THROAT W SWELLING CHILLS COUGH [id number] 11/18/2015 16:04:00 11/18/2015 23:59:59 CLS Outpatient VIVIAN GASTON [employer] [facility] RAD M54.42 [id number] 04/13/2015 19:10:00 04/14/2015 01:19:00 DIS Emergency MAURA MILTON [facility] ER BACK/R LEG PAIN [id number] 02/11/2014 22:19:00 02/11/2014 23:05:00 DIS Emergency OLIVA AVILA [employer] [facility] ER FEVER,HIVES,BLOODY NOSE [id number] 05/26/2013 18:57:00 05/26/2013 20:33:00 DIS Emergency MUNIR FUENTES, TONYA Pierre [facility] ER RASH [id number] 05/16/2013 01:15:00 05/16/2013 03:01:00 DIS Emergency DARREN ZHOU KIMMIE Kun [facility] ER RASH,ALLERGIC REACTION [id number] 04/25/2013 11:22:00 04/25/2013 14:14:00 DIS Emergency HEYDI FUENTES, JAYE Huitron [facility] ER ABSCESS [id number] 04/04/2014 21:59:00 Document Registration [id number] 06/17/2013 05:23:00 06/17/2013 08:10:00 DIS Emergency [id number] 01/12/2017 11:05:29 Document Registration [id number] 09/29/2016 19:07:00 Document Registration [id number] 10/01/2016 19:06:00 Document Registration [id number] 09/11/2015 02:12:00 09/11/2015 02:31:00 DIS Emergency JAYE PARRA [facility] ER HIDRADENITIS SUPPURATIVA [id number] 09/30/2016 10:10:00 Document Registration [id number] 01/25/2016 13:05:00 Document Registration [id number] 01/16/2016 13:05:00 Document Registration
[2017-09-24 23:21] LABS: ALANINE AMINOTRANSFERASE 21 U/L (0-55); ALBUMIN 4.3 GM/DL (3.2-4.5); ALKALINE PHOSPHATASE 66 U/L (40-136); BILIRUBIN,TOTAL 0.3 MG/DL (0.1-1.0); BUN/CREATININE RATIO 18; CALCIUM 9.2 MG/DL (8.5-10.1); CARBON DIOXIDE 19 MMOL/L (21-32); CHLORIDE 106 MMOL/L (98-107); CREATININE SERUM 0.84 MG/DL (0.60-1.30); GFR ESTIMATED > 60; GLUCOSE 100 MG/DL (70-105); POTASSIUM 3.9 MMOL/L (3.6-5.0); SODIUM 139 MMOL/L (135-145); TOTAL PROTEIN 8.1 GM/DL (6.4-8.2)
[2017-09-24 23:24] LABS: BASOPHILS % (AUTO) 0 % (0-10); EOSINOPHILS # (AUTO) 0.2 10^3/uL (0.0-0.3); EOSINOPHILS % (AUTO) 2 % (0-10); HEMATOCRIT 36 % (35-52); HEMOGLOBIN 11.3 G/DL (11.5-16.0); LYMPHOCYTES # (AUTO) 2.7 X 10^3 (1.0-4.0); LYMPHOCYTES % (AUTO) 25 % (12-44); MEAN CORPUSCULAR HEMOGLOBIN 23 PG (25-34); MEAN CORPUSCULAR HGB CONC 32 G/DL (32-36); MEAN CORPUSCULAR VOLUME 73 FL (80-99); MONOCYTES % (AUTO) 9 % (0-12); NEUTROPHILS # (AUTO) 6.8 X 10^3 (1.8-7.8); NEUTROPHILS % (AUTO) 64 % (42-75); PLATELET COUNT 332 10^3/uL (130-400); RED BLOOD COUNT 4.94 10^6/uL (4.35-5.85); WHITE BLOOD COUNT 10.7 10^3/uL (4.3-11.0)
--- NOTE | 2017-09-24 23:43 | ED General ---
General Chief Complaint: Skin/Wound Problems Stated Complaint: INFLAMED SKIN ON LOWER ABD Nursing Triage Note: PT PRESENTS TO ER WITH COMPLAINT OF POSSIBLE ABSCESS ON HER LOWER ABD. Nursing Sepsis Screen: No Definite Risk Source of Information: Patient, Old Records Exam Limitations: No Limitations History of Present Illness Date Seen by Provider: Sep 24, 2017 Time Seen by Provider: 22:40 Initial Comments This 27-year-old young lady presents to the emergency room with history of hidradenitis suppurativa with development of a suspected abscess in the fold of her pannus that has become increasingly painful over the last 24 hours. She has edema and induration of the surrounding skin suspicious for cellulitis. Patient had been on prophylactic doxycycline until a few weeks ago. She is afebrile. Allergies and Home Medications Allergies Coded Allergies: No Known Drug Allergies (Unverified , 04/25/13) Home Medications Docusate Sodium 100 Mg Capsule, 100 MG PO BID PRN for CONSTIPATION-1ST LINE Prescribed by: NATHALIE LORA on 04/20/17 184 Ferrous Sulfate 325 Mg Tablet.dr, 325 MG PO DAILY Prescribed by: NATHALIE LORA on 04/21/17 0846 Hydrocodone Bit/Acetaminophen 1 Tab Tab, 1-2 TAB PO Q4H PRN for PAIN-MODERATE Prescribed by: NATHALIE LORA on 04/20/171843 Ibuprofen 600 Mg Tablet, 600 MG PO Q6H Prescribed by: NATHALIE LORA on 04/20/171843 Patient Home Medication List Home Medication List Reviewed: Yes Review of Systems Constitutional: no symptoms reported EENTM: no symptoms reported Respiratory: no symptoms reported Cardiovascular: no symptoms reported Gastrointestinal: no symptoms reported Genitourinary: no symptoms reported Musculoskeletal: no symptoms reported Skin: see HPI Psychiatric/Neurological: No Symptoms Reported Hematologic/Lymphatic: No Symptoms Reported Past Fvmqfgx-Gotavi-Fxqthw Hx Patient Social History Alcohol Use: Occasionally Uses Recreational Drug Use: No Smoking Status: Former Smoker Type Used: Cigarettes Former Smoker, Quit: Dec 21, 2015 2nd Hand Smoke Exposure: Yes Recent Foreign Travel: No Contact w/Someone Who Travel: No Recent Infectious Disease Expo: No Recent Hopitalizations: No Immunizations Up To Date Tetanus Booster (TDap): Less than 5yrs PED Vaccines UTD: Yes Seasonal Allergies Seasonal Allergies: Yes (fall and winter ) Past Medical History Surgeries: Yes (Pilonidal cyst, abscess I&D) Respiratory: No Cardiac: No Neurological: No : No Female Reproductive Disorders: Denies Sexually Transmitted Disease: Yes (Treated for Chyl during preg, ISAIAS neg) HIV/AIDS: No Genitourinary: No Gastrointestinal: No Gastroesophageal Reflux Musculoskeletal: Yes Degenerate Disk Disease, Back Injury, Chronic Back Pain Endocrine: No HEENT: No Hearing Impairment: Hard of Hearing Cancer: No Psychosocial: Yes ADD/ADHD, Anxiety, Bipolar, Depression Integumentary: No Eczema Blood Disorders: No Adverse Reaction/Blood Tranf: No Family Medical History Arthritis 19 MOTHER Cardiovascular disease 19 FATHER 19 MOTHER Diabetes mellitus 19 MOTHER Hypercholesterolemia 19 MOTHER Psychosocial problem 19 MOTHER Physical Exam Vital Signs Vital Signs - First Documented 09/24/17 22:43 Temp 99.1 Pulse 92 Resp 20 B/P (MAP) 119/69 (86) Pulse Ox 99 O2 Delivery Room Air Capillary Refill : Less Than 3 Seconds Height, Weight, BMI Height: 5'3.00" Weight: 307lbs. 0.0oz. 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 Chlorhexidine wipes were used to prep the skin. A 1 cm incision was made over the area of greatest fluctuance. A large quantity of purulent drainage reported from the wound. Skin was manipulated to milk further drainage from the wound. Wound was then irrigated with 60 mL of normal saline using a filter tip. Antibiotic ointment and sterile gauze was applied in the skin fold. Wound culture was obtained. Progress/Results/Core Measures Suspected Sepsis Recent Fever Within 48 Hours: No Infection Criteria Present: None New/Unexplained Altered Menta: No Sepsis Screen: No Definite Risk SIRS Temperature:99.1 Pulse: 92 Respiratory Rate: 20 Laboratory Tests 09/24/17 23:19: White Blood Count 10.7 Blood Pressure 119 /69 Mean: 86 Laboratory Tests 09/24/17 22:55: Creatinine 0.84, Total Bilirubin 0.3 09/24/17 23:19: Platelet Count 332 Results/Orders Lab Results Laboratory Tests Test 09/24/17 22:55 09/24/17 23:19 Range/Units Sodium Level 139 135-145 MMOL/L Potassium Level 3.9 3.6-5.0 MMOL/L Chloride Level 106 98-107 MMOL/L Carbon Dioxide Level 19 L 21-32 MMOL/L Anion Gap 14 5-14 MMOL/L Blood Urea Nitrogen 15 7-18 MG/DL Creatinine 0.84 0.60-1.30 MG/DL Estimat Glomerular Filtration Rate > 60 BUN/Creatinine Ratio 18 Glucose Level 100 70-105 MG/DL Calcium Level 9.2 8.5-10.1 MG/DL Corrected Calcium 9.0 8.5-10.1 MG/DL Total Bilirubin 0.3 0.1-1.0 MG/DL Aspartate Amino Transf (AST/SGOT) 22 5-34 U/L Alanine Aminotransferase (ALT/SGPT) 21 0-55 U/L Alkaline Phosphatase 66 40-136 U/L C-Reactive Protein High Sensitivity 4.51 H 0.00-0.50 MG/DL Total Protein 8.1 6.4-8.2 GM/DL Albumin 4.3 3.2-4.5 GM/DL Serum Test, Qualitative NEGATIVE NEGATIVE White Blood Count 10.7 4.3-11.0 10^3/uL Red Blood Count 4.94 4.35-5.85 10^6/uL Hemoglobin 11.3 L 11.5-16.0 G/DL Hematocrit 36 35-52 % Mean Corpuscular Volume 73 L 80-99 FL Mean Corpuscular Hemoglobin 23 L 25-34 PG Mean Corpuscular Hemoglobin Concent 32 32-36 G/DL Red Cell Distribution Width 15.0 H 10.0-14.5 % Platelet Count 332 130-400 10^3/uL Mean Platelet Volume 11.0 H 7.4-10.4 FL Neutrophils (%) (Auto) 64 42-75 % Lymphocytes (%) (Auto) 25 12-44 % Monocytes (%) (Auto) 9 0-12 % Eosinophils (%) (Auto) 2 0-10 % Basophils (%) (Auto) 0 0-10 % Neutrophils # (Auto) 6.8 1.8-7.8 X 10^3 Lymphocytes # (Auto) 2.7 1.0-4.0 X 10^3 Monocytes # (Auto) 1.0 0.0-1.0 X 10^3 Eosinophils # (Auto) 0.2 0.0-0.3 10^3/uL Basophils # (Auto) 0.0 0.0-0.1 10^3/uL Micro Results Microbiology 09/24/17 Gram Stain, Resulted Pending 09/24/17 Wound Culture - Preliminary, Resulted Sent To [facility] My Orders Orders - JAYE SOLIZ MD Cbc With Automated Diff (09/24/17 22:47) Comprehensive Metabolic Panel (09/24/17 22:47) Hs C Reactive Protein (09/24/17 22:47) Hcg,Qualitative Serum (09/24/17 22:47) Clindamycin 900 Mg/50 Ml Ivpb (Cleocin P (09/24/17 23:00) Let Solution (Let Solution) (09/24/17 23:00) Ketorolac Injection (Toradol Injection) (09/24/17 23:00) Wound Culture (09/24/17 22:50) Ondansetron Injection (Zofran Injectio (09/24/17 23:00) Medications Given in ED Vital Signs/I&O Capillary Refill : Less Than 3 Seconds Blood Pressure Mean: 86 Progress Note : Progress Note Basic labs were obtained and were unremarkable. Patient was given a dose of IV clindamycin. Cultures from prior visit were reviewed. Patient was instructed to restart Doxycycline. Departure Impression Primary Impression: Cellulitis and abscess of trunk Additional Impression: Encounter for incision and drainage procedure Disposition: 01 HOME, SELF-CARE Condition: Improved Departure-Patient Inst. Decision time for Depature: 23:41 Referrals: EVERARDO HUNT MD (PCP/Family) Primary Care Physician Patient Instructions: Abscess Incision and Drainage (DC), Cellulitis (Skin Infection), Adult (DC) Add. Discharge Instructions: Resume doxycycline 100 mg twice daily for at least 10 days. You may use warm compresses or warm bath soaks 2 or 3 times a day for the next several days to encourage draining. Consider bathing with chlorhexidine soap daily to help prevent recurrence. Dress the wound to collect drainage until it seals. Return to care if you have worsening symptoms such as increasing pain, increasing redness, fever over 100, etc. Take ibuprofen up to 600 mg every 6 hours as needed for pain. Add Tylenol (acetaminophen) up to 1000 mg every 6 hours as needed. All discharge instructions reviewed with patient and/or family. Voiced understanding. Copy Copies To 1: EVERARDO HUNT MD, JOSHUA T MD Sep 24, 2017 23:43
[2017-09-25 00:06] VITALS: BP 119/69
== END 2017-09-25 00:06 | disposition home or self-care (01) ==
LOC: EDUNIT# 22:35 → ER 22:37
DX: L02.219 Cutaneous abscess of trunk, unspecified (principal); K21.9 Gastro-esophageal reflux disease without esophagitis; F90.9 Attention-deficit hyperactivity disorder, unspecified type; F41.9 Anxiety disorder, unspecified; F31.9 Bipolar disorder, unspecified; Z82.49 Family history of ischemic heart disease and other diseases of the circulatory system; Z79.02 Long term (current) use of antithrombotics/antiplatelets; Z87.891 Personal history of nicotine dependence
CPT/HCPCS: 10060; 36415; 80053; 84703; 85025; 86141; 87070; 87077; 87186; 87205

== ENCOUNTER → 2017-11-07 | Outpatient (CLI) | payer MEDICAID ==
--- NOTE | 2017-11-07 12:53 | Diagnostic Imaging Report ---
INDICATION: Back pain with left sciatica. Three views were obtained. FINDINGS: Alignment, vertebral body heights and disc spaces are within normal limits. There is no spondylolysis or spondylolisthesis. There is no acute fracture or traumatic subluxation. IMPRESSION: No acute radiographic abnormality. Dictated by: Dictated on workstation # [id number]
== END ==
LOC: RAD 12:19
PROVIDERS: ATTEND Family Medicine
DX: M54.42 Lumbago with sciatica, left side (principal); M54.41 Lumbago with sciatica, right side
CPT/HCPCS: 72100